=== PATIENT | female | born 1980 | race Caucasian/White ===

== ENCOUNTER → 2017-06-20 | Outpatient (CLI) | payer MEDICARE, SELFPAY | PROVIDERS: Family Provider Family Medicine; PCP Family Medicine; Visit Provider Family Medicine | DX: E66.01 Morbid (severe) obesity due to excess calories (principal) | CPT/HCPCS: 36415; 80053; 80061; 84443; 85025 ==

== ENCOUNTER → 2018-03-28 09:23 | Outpatient (CLI) | payer MEDICARE, MEDICAID, SELFPAY ==
[2018-03-28 10:53] LABS: Add Manual Diff / Slide Review NO; Basophils Percent Auto 0.3 % (0-2); Eosinophils Percent Auto 1.7 % (2-4); Hematocrit 39.4 % (36-46); Lymphocytes Percent Auto 22.6 % (25-40); Mean Corpuscular Hemoglobin 29.2 PG (26-34); Mean Corpuscular Volume 88.4 fL (80-100); Monocytes Percent Auto 4.2 % (3-14); Neutrophils Absolute Auto 8600 /uL (3000-5900); Neutrophils Percent Auto 71.2 % (50-75); Platelet Count 364 X10^3/uL (150-400); Red Blood Cell Count 4.45 X10^6/uL (4.0-5.2); White Blood Cell Count 12.1 X10^3/uL (4.5-11.0)
[2018-03-28 12:07] LABS: Erythrocyte Sedimentation Rate 43 MM/HR (0-20)
[2018-03-31 06:47] LABS: Immunoglobulin E 78 kU/L (< 115)
== END ==
PROVIDERS: Family Provider Family Medicine; PCP Family Medicine; Visit Provider Physician Assistant Medical
DX: J45.998 Other asthma (principal)
CPT/HCPCS: 36415; 82785; 85025; 85651

== ENCOUNTER 2018-04-06 15:47 | Emergency (ER) | payer MEDICARE, MEDICAID, SELFPAY ==
[2018-04-06 15:54] VITALS: BP 171/112; PULSE 112; RESP 20; TEMP 36.7; O2SAT 98; BMI 50.4
--- NOTE | 2018-04-06 15:58 | DI.RAD.S_ITS ---
PROCEDURE: XR CHEST 2V INDICATIONS: shortness of breath. TECHNIQUE: 2 views of the chest were acquired. COMPARISON: [facility], , CHEST 2 VIEW, 04/14/2016, 17:24. FINDINGS: Surgical changes and devices: None. Lungs and pleura: No pleural effusions or pneumothorax. Left base is obscured by overlying soft tissues. Mild appearance of increased pulmonary vascularity. Mediastinum: Mediastinal contours are normal. Heart size is markedly enlarged. Bones and chest wall: No suspicious bony abnormalities. Soft tissues appear unremarkable. IMPRESSION: Enlarged cardiac silhouette as above, increased compared to prior exam. Mild appearance of increased pulmonary vascularity suggestive of edema. Heart shadow and overlying soft tissues obscures left base. Area of effusion or consolidation cannot be excluded. Dictated by: Marjan Santamaria M.D. on 04/06/2018 at 17:42 Approved by: Marjan Santamaria M.D. on 04/06/2018 at 17:43
--- NOTE | 2018-04-06 16:01 | ED.SOB ---
HPI - SOB/Dyspnea <Wendi Olea PA-C - Last Filed: 04/06/18 22:18> General Chief Complaint: Shortness of Breath/Dyspnea Stated Complaint: CHEST PAIN SOB Time Seen by Provider: 04/06/18 16:00 Source: patient Mode of arrival: ambulatory Limitations: no limitations History of Present Illness This 38-year-old female comes in today due to ongoing asthma exacerbation. She states that she has been struggling with her asthma and allergies for the last couple of years and currently is being cared for by an pediatric sports medicine specialist for this. She states that this has been even worse for the last months despite her being on steroid inhaler, ProAir, Spiriva, and her allergy medications. She states that she has chronic left earache and sinus pain along with sensation of phlegm and throat tightness and chronic cough. She states that her chest is sore from coughing so much. She feels like symptoms have been gradually worsening for the last week, not acutely worse today she says but nurse from ceramics technician office advised her to come in. She states that they were waiting for a lab test to come back and apparently there was some concern about being able to get a medication for her though unknown what that is. She has not had new pain in her swelling in her legs (has some chronic pain which is unchanged). She denies abdominal pain or other new complaints today. She was seen at the walk-in clinic last week, does not think steroids that she was prescribed helped her. She states that she has chronic sinus tachycardia, and she really does not feel like any of her chronic problems are acutely changed today Related Data Home Medications Medication Instructions Recorded Confirmed albuterol sulfate HFA 90 2 puff INHALATION Q4-6H PRN 03/31/18 04/06/18 mcg/actuation aerosol inhaler baclofen 20 mg tablet 40 mg PO BEDTIME tab 03/31/18 04/06/18 fluticasone 200 mcg-vilanterol 25 1 inhalation INHALATION BEDTIME 03/31/18 04/06/18 mcg/dose powder for inhalation levomefolate 15 mg-algal oil 1 cap PO DAILY 03/31/18 04/06/18 90.314 mg capsule prazosin 1 mg capsule 3 mg PO BEDTIME cap 03/31/18 04/06/18 verapamil ER 120 mg 24 hr 120 mg PO TID 03/31/18 04/06/18 capsule,extended release amitriptyline 100 mg PO BEDTIME 04/06/18 04/06/18 gabapentin 300 mg PO DAILY 04/06/18 04/06/18 gabapentin [Neurontin] 600 mg PO BID 04/06/18 04/06/18 hydroxyzine pamoate [Vistaril] 50 mg PO BID 04/06/18 04/06/18 ibuprofen 800 mg PO BID 04/06/18 04/06/18 magnesium oxide 2 tab PO BEDTIME 04/06/18 04/06/18 montelukast [Singulair] 10 mg PO BEDTIME 04/06/18 04/06/18 triamcinolone acetonide [Nasacort] 2 spray INTRANASAL BEDTIME 04/06/18 04/06/18 Previous Rx's Medication Instructions Recorded omeprazole 40 mg PO BID #60 ecc 07/29/17 milnacipran [Savella] 100 mg PO BID #180 tab 11/19/17 tiotropium bromide [Spiriva with 1 puff INH BID #180 cap 12/29/17 HandiHaler] diazepam 5 mg tablet 5 mg PO TID #90 tab 02/06/18 cholecalciferol (vitamin D3) 4,000 2,000 unit PO BID #180 cap 03/03/18 unit capsule dihydroergotamine 1 mg/mL 1 mg SUBCUT Q8H PRN #10 amp 03/31/18 injection solution erenumab-aooe 70 mg/mL 140 mg SUBCUT QMONTH #2 ml 03/31/18 subcutaneous auto-injector Allergies Allergy/AdvReac Type Severity Reaction Status Date / Time bupropion [BUPROPION] Allergy Mild facial rash Verified 04/06/18 15:57 hydrocodone [HYDROCODONE] Allergy Mild rash Verified 04/06/18 15:57 iodine [IODINE] Allergy Mild edema Verified 04/06/18 15:57 Review of Systems <Wendi Olea PA-C - Last Filed: 04/06/18 22:18> Review of Systems All systems reviewed & are unremarkable except as noted in HPI and below Exam <Wendi Olea PA-C - Last Filed: 04/06/18 22:18> Narrative Exam Narrative: GENERAL APPEARANCE: Patient sitting comfortably, in no distress. HEAD: Mild generalized sinus tenderness EYES: PERRL, EOMI. EARS: Normal auditory canals, TMS intact with dull ORAL CAVITY: Normal oropharynx, PND noted THROAT: Clear. NECK/THYROID: Neck supple, full range of motion, no cervical lymphadenopathy. LUNGS: Clear to auscultation bilaterally, no cough on exam. CHEST: Generalized TTP HEART: RRR without murmur, nl S1, S2, no S3 or S4. EXTREMITIES: No cyanosis, no edema, no calf tenderness Initial Vital Signs Initial Vital Signs: Vital Signs Temperature 98.1 F 04/06/18 15:54 Pulse Rate 112 H 04/06/18 15:54 Respiratory Rate 20 04/06/18 15:54 Blood Pressure 171/112 H 04/06/18 15:54 Pulse Oximetry 98 04/06/18 15:54 <Wiley Perry DO - Last Filed: 04/07/18 07:06> Initial Vital Signs Initial Vital Signs: Vital Signs Temperature 98.1 F 04/06/18 15:54 Pulse Rate 112 H 04/06/18 15:54 Respiratory Rate 20 04/06/18 15:54 Blood Pressure 171/112 H 04/06/18 15:54 Pulse Oximetry 98 04/06/18 15:54 Course <Wendi Olea PA-C - Last Filed: 04/06/18 22:18> Additional Information: Reviewed findings and exam with Dr. Perry. D-dimer is normal and patient is not having acute symptoms however she has had ongoing unexplained dyspnea and chest discomfort without response to steroids. We did proceed with chest CT. No evidence of acute embolus in the central veins. Unable to evaluate peripheral vasculature fully due to body habitus. Dr. Powell agrees reasonable to have patient return home and follow up with her ceramics technician and PCP as planned. She has appeared comfortable and in no distress during her stay talking with her daughter and watching videos Orders Ordered: Discontinued Medications Albuterol (Ventolin) 2.5 mg INH NOW ONE Stop: 04/06/18 16:13 Last Admin: 04/06/18 17:15 Dose: 2.5 mg Albuterol/Ipratropium (Duoneb) 3 ml INH NOW ONE Stop: 04/06/18 16:01 Last Admin: 04/06/18 16:04 Dose: 3 ml Sodium Chloride (Normal Saline 0.9%) 1,000 mls @ 1,000 mls/hr IV BOLUS ONE Stop: 04/06/18 19:02 Last Infusion: 04/06/18 21:39 Dose: 0 mls/hr Admin: 04/06/18 20:03 Dose: 1,000 mls/hr Vital Signs - 8 hr 04/06/18 15:54 04/06/18 16:05 04/06/18 17:42 Temperature 98.1 F 99.0 F Pulse Rate 112 H 111 H 110 H Respiratory Rate 20 17 20 Blood Pressure 171/112 H Blood Pressure [Right Wrist] 141/99 H Pulse Oximetry 98 96 96 04/06/18 19:50 04/06/18 21:23 04/06/18 21:42 Temperature 98.0 F 97.6 F Pulse Rate 111 H 113 H 77 Respiratory Rate 20 16 16 Blood Pressure 118/72 Blood Pressure [Right Wrist] 128/77 H 117/96 H Pulse Oximetry 96 99 99 <Wiley Perry DO - Last Filed: 04/07/18 07:06> Orders Ordered: Discontinued Medications Albuterol (Ventolin) 2.5 mg INH NOW ONE Stop: 04/06/18 16:13 Last Admin: 04/06/18 17:15 Dose: 2.5 mg Albuterol/Ipratropium (Duoneb) 3 ml INH NOW ONE Stop: 04/06/18 16:01 Last Admin: 04/06/18 16:04 Dose: 3 ml Sodium Chloride (Normal Saline 0.9%) 1,000 mls @ 1,000 mls/hr IV BOLUS ONE Stop: 04/06/18 19:02 Last Infusion: 04/06/18 21:39 Dose: 0 mls/hr Admin: 04/06/18 20:03 Dose: 1,000 mls/hr Vital Signs - 8 hr 04/06/18 15:54 04/06/18 16:05 04/06/18 17:42 Temperature 98.1 F 99.0 F Pulse Rate 112 H 111 H 110 H Respiratory Rate 20 17 20 Blood Pressure 171/112 H Blood Pressure [Right Wrist] 141/99 H Pulse Oximetry 98 96 96 04/06/18 19:50 04/06/18 21:23 04/06/18 21:42 Temperature 98.0 F 97.6 F Pulse Rate 111 H 113 H 77 Respiratory Rate 20 16 16 Blood Pressure 118/72 Blood Pressure [Right Wrist] 128/77 H 117/96 H Pulse Oximetry 96 99 99 MDM - SOB/Dyspnea <Wendi Olea PA-C - Last Filed: 04/06/18 22:18> Lab Data Attestation: I reviewed the patient's lab results. Result diagrams: 04/06/18 17:29 04/06/18 17:29 Lab Results 04/06/18 04/06/18 04/06/18 Range/Units 17:29 17:29 17:29 WBC 14.0 H (4.5-11.0) X10^3/uL RBC 4.70 (4.0-5.2) X10^6/uL Hgb 13.6 (12.0-16.0) g/dL Hct 41.4 (36-46) % MCV 88.1 (80-100) fL MCH 28.9 (26-34) PG MCHC 32.8 (30-36) % RDW 14.2 (11.6-14.8) % Plt Count 387 (150-400) X10^3/uL Neut % (Auto) 77.6 H (50-75) % Lymph % (Auto) 14.7 L (25-40) % [place] % (Auto) 6.7 (3-14) % Eos % (Auto) 0.6 L (2-4) % Baso % (Auto) 0.4 (0-2) % Neut # (Auto) 94398 H (0641-8457) /uL D-Dimer < 200 (<230) ng/mL Sodium 140 (137-145) mmol/L Potassium 4.5 (3.4-5.1) mmol/L Chloride 95 L (98-107) mmol/L Carbon Dioxide 37 H (22-32) mmol/L BUN 16 (7-17) mg/dL Creatinine 0.60 (0.52-1.04) mg/dL Estimated GFR > 60.0 (>60) mL/min BUN/Creatinine Ratio 26.7 H (6-22) Glucose 99 (70-100) mg/dL Calcium 9.7 (8.4-10.2) mg/dL B-Natriuretic Peptide < 100.0 (<100) Imaging Data Chest x-ray: Radiologist's impression: View Report History [address] [place] [address] XRay Report Signed Patient: Dorinda Harper MR#: [id number] : 1980 Acct:[id number] Age/Sex: 38 / F Date of Service: 04/06/18 Loc: ED Accession Number: [id number] Procedure: XR chest 2V Ordering Provider: Wendi Olea P.A-C PROCEDURE: XR CHEST 2V INDICATIONS: shortness of breath. TECHNIQUE: 2 views of the chest were acquired. COMPARISON: [facility], , CHEST 2 VIEW, 04/14/2016, 17:24. FINDINGS: Surgical changes and devices: None. Lungs and pleura: No pleural effusions or pneumothorax. Left base is obscured by overlying soft tissues. Mild appearance of increased pulmonary vascularity. Mediastinum: Mediastinal contours are normal. Heart size is markedly enlarged. Bones and chest wall: No suspicious bony abnormalities. Soft tissues appear unremarkable. IMPRESSION: Enlarged cardiac silhouette as above, increased compared to prior exam. Mild appearance of increased pulmonary vascularity suggestive of edema. Heart shadow and overlying soft tissues obscures left base. Area of effusion or consolidation cannot be excluded. Dictated by: Marjan Santamaria M.D. on 04/06/2018 at 17:42 Approved by: Marjan Santamaria M.D. on 04/06/2018 at 17:43 ECG Data Attestation: I personally reviewed and interpreted this ECG as follows: (Sinus tachycardia, rate 109, normal axis, no new ST/T changes) Prior ECG tracings: available for review <Wiley Perry DO - Last Filed: 04/07/18 07:06> Lab Data Lab Results 04/06/18 04/06/18 04/06/18 Range/Units 17:29 17:29 17:29 WBC 14.0 H (4.5-11.0) X10^3/uL RBC 4.70 (4.0-5.2) X10^6/uL Hgb 13.6 (12.0-16.0) g/dL Hct 41.4 (36-46) % MCV 88.1 (80-100) fL MCH 28.9 (26-34) PG MCHC 32.8 (30-36) % RDW 14.2 (11.6-14.8) % Plt Count 387 (150-400) X10^3/uL Neut % (Auto) 77.6 H (50-75) % Lymph % (Auto) 14.7 L (25-40) % [place] % (Auto) 6.7 (3-14) % Eos % (Auto) 0.6 L (2-4) % Baso % (Auto) 0.4 (0-2) % Neut # (Auto) 87259 H (7295-5347) /uL D-Dimer < 200 (<230) ng/mL Sodium 140 (137-145) mmol/L Potassium 4.5 (3.4-5.1) mmol/L Chloride 95 L (98-107) mmol/L Carbon Dioxide 37 H (22-32) mmol/L BUN 16 (7-17) mg/dL Creatinine 0.60 (0.52-1.04) mg/dL Estimated GFR > 60.0 (>60) mL/min BUN/Creatinine Ratio 26.7 H (6-22) Glucose 99 (70-100) mg/dL Calcium 9.7 (8.4-10.2) mg/dL B-Natriuretic Peptide < 100.0 (<100) Discharge Plan Departure Patient Disposition: Home, Self-Care Clinical Impression: Dyspnea and respiratory abnormalities Discharge Date/Time: 04/06/18 21:43 Interventions: ED Discharge Assessment Last Done: 04/06/18 21:42 Instructions: DI for Shortness of Breath Activity Restrictions/Additional Instructions: You should return to the closest emergency department if you have any acutely worsening symptoms. Otherwise, please call your ceramics technician tomorrow and let them know you were seen in the ED. You should follow-up in the next couple of days. Since you have had this shortness of breath worsening gradually as well as chest discomfort and other ongoing symptoms, you do need further workup. There were no acute findings on your lab work or imaging studies today, and since your symptoms are not worse today, it appears safe for you to return home and follow up as an outpatient. Please continue your usual medications. Prescriptions: No Action omeprazole 40 MG capsule,delayed release(DR/EC) 40 mg PO BID Qty: 60 RF: 11 milnacipran [Savella] 100 MG tablet 100 mg PO BID Qty: 180 RF: 2 tiotropium bromide [Spiriva with HandiHaler] 18 MCG capsule, w/inhalation device 1 puff INH BID Qty: 180 RF: 3 diazepam 5 mg tablet 5 mg PO TID Qty: 90 RF: 3 cholecalciferol (vitamin D3) [Vitamin D3] 4,000 unit capsule 2,000 unit PO BID Qty: 180 RF: 1 ibuprofen 800 mg tablet 800 mg PO BID RF: 0 montelukast [Singulair] 10 MG tablet 10 mg PO BEDTIME RF: 0 gabapentin 600 mg tablet 300 mg PO DAILY RF: 0 gabapentin [Neurontin] 600 mg tablet 600 mg PO BID RF: 0 hydroxyzine pamoate [Vistaril] 50 MG capsule 50 mg PO BID RF: 0 triamcinolone acetonide [Nasacort] 55 MCG/PUFF aerosol,spray 2 spray Intranasal BEDTIME RF: 0 magnesium oxide 500 MG tablet 2 tab PO BEDTIME RF: 0 amitriptyline 100 MG tablet 100 mg PO BEDTIME RF: 0 baclofen 20 mg tablet 40 mg PO BEDTIME RF: 0 fluticasone-vilanterol [Breo Ellipta] 200-25 mcg/dose blister with device 1 inhalation INHALATION BEDTIME RF: 0 levomefolate-algal oil [Deplin (algal oil)] 15-90.314 mg capsule 1 cap PO DAILY RF: 0 prazosin 1 mg capsule 3 mg PO BEDTIME RF: 0 albuterol sulfate [ProAir HFA] 90 mcg/actuation HFA aerosol inhaler 2 puff INHALATION Q4-6H PRN (Reason: Shortness Of Breath) RF: 0 verapamil 120 mg capsule,ext rel. pellets 24 hr 120 mg PO TID RF: 0 dihydroergotamine 1 mg/mL solution 1 mg SUBCUT Q8H PRN (Reason: migraine headache) Qty: 10 RF: 11 erenumab-aooe [Aimovig Autoinjector (2 Pack)] 70 mg/mL auto-injector 140 mg SUBCUT QMONTH Qty: 2 RF: 11 Referrals: Ivonne Buenrostro MD [Primary Care Provider] - Pinky Sanchez PA-C [Non-Staff] - <Wiley Perry DO - Last Filed: 04/07/18 07:06> Cosign ED Attending Jessicaature Attestation: I was available for consultation during this patient's emergency department encounter
[2018-04-06] MEDS: ALBUTEROL/IPRATROPIUM 3 ML AMPUL INH (16:04)
[2018-04-06 16:05] VITALS: PULSE 111; RESP 17; O2SAT 96
--- NOTE | 2018-04-06 16:17 | ED_ITS ---
HPI - SOB/Dyspnea <Wendi Olea PA-C - Last Filed: 04/06/18 22:18> General Chief Complaint: Shortness of Breath/Dyspnea Stated Complaint: CHEST PAIN SOB Time Seen by Provider: 04/06/18 16:00 Source: patient Mode of arrival: ambulatory Limitations: no limitations History of Present Illness This 38-year-old female comes in today due to ongoing asthma exacerbation. She states that she has been struggling with her asthma and allergies for the last couple of years and currently is being cared for by an laboratory technical specialist for this. She states that this has been even worse for the last months despite her being on steroid inhaler, ProAir, Spiriva, and her allergy medications. She states that she has chronic left earache and sinus pain along with sensation of phlegm and throat tightness and chronic cough. She states that her chest is sore from coughing so much. She feels like symptoms have been gradually worsening for the last week, not acutely worse today she says but nurse from rubber production machine operator office advised her to come in. She states that they were waiting for a lab test to come back and apparently there was some concern about being able to get a medication for her though unknown what that is. She has not had new pain in her swelling in her legs (has some chronic pain which is unchanged). She denies abdominal pain or other new complaints today. She was seen at the walk-in clinic last week, does not think steroids that she was prescribed helped her. She states that she has chronic sinus tachycardia, and she really does not feel like any of her chronic problems are acutely changed today Related Data Home Medications Medication Instructions Recorded Confirmed albuterol sulfate HFA 90 2 puff INHALATION Q4-6H PRN 03/31/18 04/06/18 mcg/actuation aerosol inhaler baclofen 20 mg tablet 40 mg PO BEDTIME tab 03/31/18 04/06/18 fluticasone 200 mcg-vilanterol 25 1 inhalation INHALATION BEDTIME 03/31/1804/06 mcg/dose powder for inhalation levomefolate 15 mg-algal oil 1 cap PO DAILY 03/31/18 04/06/18 90.314 mg capsule prazosin 1 mg capsule 3 mg PO BEDTIME cap 03/31/18 04/06/18 verapamil ER 120 mg 24 hr 120 mg PO TID 03/31/18 04/06/18 capsule,extended release amitriptyline 100 mg PO BEDTIME 04/06/18 04/06/18 gabapentin 300 mg PO DAILY 04/06/18 04/06/18 gabapentin [Neurontin] 600 mg PO BID 04/06/18 04/06/18 hydroxyzine pamoate [Vistaril] 50 mg PO BID 04/06/18 04/06/18 ibuprofen 800 mg PO BID 04/06/18 04/06/18 magnesium oxide 2 tab PO BEDTIME 04/06/18 04/06/18 montelukast [Singulair] 10 mg PO BEDTIME 04/06/18 04/06/18 triamcinolone acetonide [Nasacort] 2 spray INTRANASAL BEDTIME 04/06/18 04/06/18 Previous Rx's Medication Instructions Recorded omeprazole 40 mg PO BID #60 ecc 07/29/17 milnacipran [Savella] 100 mg PO BID #180 tab 11/19/17 tiotropium bromide [Spiriva with 1 puff INH BID #180 cap 12/29/17 HandiHaler] diazepam 5 mg tablet 5 mg PO TID #90 tab 02/06/18 cholecalciferol (vitamin D3) 4,000 2,000 unit PO BID #180 cap 03/03/18 unit capsule dihydroergotamine 1 mg/mL 1 mg SUBCUT Q8H PRN #10 amp 03/31/18 injection solution erenumab-aooe 70 mg/mL 140 mg SUBCUT QMONTH #2 ml 03/31/18 subcutaneous auto-injector Allergies Allergy/AdvReac Type Severity Reaction Status Date / Time bupropion [BUPROPION] Allergy Mild facial rash Verified 04/06/18 15:57 hydrocodone [HYDROCODONE] Allergy Mild rash Verified 04/06/18 15:57 iodine [IODINE] Allergy Mild edema Verified 04/06/18 15:57 Review of Systems <Wendi Olea PA-C - Last Filed: 04/06/18 22:18> Review of Systems All systems reviewed & are unremarkable except as noted in HPI and below Exam <Wendi Olea PA-C - Last Filed: 04/06/18 22:18> Narrative Exam Narrative: GENERAL APPEARANCE: Patient sitting comfortably, in no distress. HEAD: Mild generalized sinus tenderness EYES: PERRL, EOMI. EARS: Normal auditory canals, TMS intact with dull ORAL CAVITY: Normal oropharynx, PND noted THROAT: Clear. NECK/THYROID: Neck supple, full range of motion, no cervical lymphadenopathy. LUNGS: Clear to auscultation bilaterally, no cough on exam. CHEST: Generalized TTP HEART: RRR without murmur, nl S1, S2, no S3 or S4. EXTREMITIES: No cyanosis, no edema, no calf tenderness Initial Vital Signs Initial Vital Signs: Vital Signs Temperature 98.1 F 04/06/18 15:54 Pulse Rate 112 H 04/06/18 15:54 Respiratory Rate 20 04/06/18 15:54 Blood Pressure 171/112 H 04/06/18 15:54 Pulse Oximetry 98 04/06/18 15:54 <Wiley Perry DO - Last Filed: 04/07/18 07:06> Initial Vital Signs Initial Vital Signs: Vital Signs Temperature 98.1 F 04/06/18 15:54 Pulse Rate 112 H 04/06/18 15:54 Respiratory Rate 20 04/06/18 15:54 Blood Pressure 171/112 H 04/06/18 15:54 Pulse Oximetry 98 04/06/18 15:54 Course <Wendi Olea PA-C - Last Filed: 04/06/18 22:18> Additional Information: Reviewed findings and exam with Dr. Perry. D-dimer is normal and patient is not having acute symptoms however she has had ongoing unexplained dyspnea and chest discomfort without response to steroids. We did proceed with chest CT. No evidence of acute embolus in the central veins. Unable to evaluate peripheral vasculature fully due to body habitus. Dr. Powell agrees reasonable to have patient return home and follow up with her rubber production machine operator and PCP as planned. She has appeared comfortable and in no distress during her stay talking with her daughter and watching videos Orders Ordered: Discontinued Medications Albuterol (Ventolin) 2.5 mg INH NOW ONE Stop: 04/06/18 16:13 Last Admin: 04/06/18 17:15 Dose: 2.5 mg Albuterol/Ipratropium (Duoneb) 3 ml INH NOW ONE Stop: 04/06/18 16:01 Last Admin: 04/06/18 16:04 Dose: 3 ml Sodium Chloride (Normal Saline 0.9%) 1,000 mls @ 1,000 mls/hr IV BOLUS ONE Stop: 04/06/18 19:02 Last Infusion: 04/06/18 21:39 Dose: 0 mls/hr Admin: 04/06/18 20:03 Dose: 1,000 mls/hr Vital Signs - 8 hr 04/06/18 15:54 04/06/18 16:05 04/06/18 17:42 Temperature 98.1 F 99.0 F Pulse Rate 112 H 111 H 110 H Respiratory Rate 20 17 20 Blood Pressure 171/112 H Blood Pressure [Right Wrist] 141/99 H Pulse Oximetry 98 96 96 04/06/18 19:50 04/06/18 21:23 04/06/18 21:42 Temperature 98.0 F 97.6 F Pulse Rate 111 H 113 H 77 Respiratory Rate 20 16 16 Blood Pressure 118/72 Blood Pressure [Right Wrist] 128/77 H 117/96 H Pulse Oximetry 96 99 99 <Wiley Perry DO - Last Filed: 04/07/18 07:06> Orders Ordered: Discontinued Medications Albuterol (Ventolin) 2.5 mg INH NOW ONE Stop: 04/06/18 16:13 Last Admin: 04/06/18 17:15 Dose: 2.5 mg Albuterol/Ipratropium (Duoneb) 3 ml INH NOW ONE Stop: 04/06/18 16:01 Last Admin: 04/06/18 16:04 Dose: 3 ml Sodium Chloride (Normal Saline 0.9%) 1,000 mls @ 1,000 mls/hr IV BOLUS ONE Stop: 04/06/18 19:02 Last Infusion: 04/06/18 21:39 Dose: 0 mls/hr Admin: 04/06/18 20:03 Dose: 1,000 mls/hr Vital Signs - 8 hr 04/06/18 15:54 04/06/18 16:05 04/06/18 17:42 Temperature 98.1 F 99.0 F Pulse Rate 112 H 111 H 110 H Respiratory Rate 20 17 20 Blood Pressure 171/112 H Blood Pressure [Right Wrist] 141/99 H Pulse Oximetry 98 96 96 04/06/18 19:50 04/06/18 21:23 04/06/18 21:42 Temperature 98.0 F 97.6 F Pulse Rate 111 H 113 H 77 Respiratory Rate 20 16 16 Blood Pressure 118/72 Blood Pressure [Right Wrist] 128/77 H 117/96 H Pulse Oximetry 96 99 99 MDM - SOB/Dyspnea <Wendi Olea PA-C - Last Filed: 04/06/18 22:18> Lab Data Attestation: I reviewed the patient's lab results. Result diagrams: 04/06/18 17:29 04/06/18 17:29 Lab Results 04/06/18 04/06/18 04/06/18 Range/Units 17:29 17:29 17:29 WBC 14.0 H (4.5-11.0) X10^3/uL RBC 4.70 (4.0-5.2) X10^6/uL Hgb 13.6 (12.0-16.0) g/dL Hct 41.4 (36-46) % MCV 88.1 (80-100) fL MCH 28.9 (26-34) PG MCHC 32.8 (30-36) % RDW 14.2 (11.6-14.8) % Plt Count 387 (150-400) X10^3/uL Neut % (Auto) 77.6 H (50-75) % Lymph % (Auto) 14.7 L (25-40) % Union % (Auto) 6.7 (3-14) % Eos % (Auto) 0.6 L (2-4) % Baso % (Auto) 0.4 (0-2) % Neut # (Auto) 21954 H (8582-7024) /uL D-Dimer < 200 (<230) ng/mL Sodium 140 (137-145) mmol/L Potassium 4.5 (3.4-5.1) mmol/L Chloride 95 L (98-107) mmol/L Carbon Dioxide 37 H (22-32) mmol/L BUN 16 (7-17) mg/dL Creatinine 0.60 (0.52-1.04) mg/dL Estimated GFR > 60.0 (>60) mL/min BUN/Creatinine Ratio 26.7 H (6-22) Glucose 99 (70-100) mg/dL Calcium 9.7 (8.4-10.2) mg/dL B-Natriuretic Peptide < 100.0 (<100) Imaging Data Chest x-ray: Radiologist's impression: View Report History [address] [place] [address] XRay Report Signed Patient: Dorinda Harper MR#: [id number] : 1980 Acct:[id number] Age/Sex: 38 / F Date of Service: 04/06/18 Loc: ED Accession Number: [id number] Procedure: XR chest 2V Ordering Provider: Wendi Olea P.A-C PROCEDURE: XR CHEST 2V INDICATIONS: shortness of breath. TECHNIQUE: 2 views of the chest were acquired. COMPARISON: [facility], , CHEST 2 VIEW, 04/14/2016, 17:24. FINDINGS: Surgical changes and devices: None. Lungs and pleura: No pleural effusions or pneumothorax. Left base is obscured by overlying soft tissues. Mild appearance of increased pulmonary vascularity. Mediastinum: Mediastinal contours are normal. Heart size is markedly enlarged. Bones and chest wall: No suspicious bony abnormalities. Soft tissues appear unremarkable. IMPRESSION: Enlarged cardiac silhouette as above, increased compared to prior exam. Mild appearance of increased pulmonary vascularity suggestive of edema. Heart shadow and overlying soft tissues obscures left base. Area of effusion or consolidation cannot be excluded. Dictated by: Marjan Santamaria M.D. on 04/06/2018 at 17:42 Approved by: Marjan Santamaria M.D. on 04/06/2018 at 17:43 ECG Data Attestation: I personally reviewed and interpreted this ECG as follows: (Sinus tachycardia, rate 109, normal axis, no new ST/T changes) Prior ECG tracings: available for review <Wiley Perry DO - Last Filed: 04/07/18 07:06> Lab Data Lab Results 04/06/18 04/06/18 04/06/18 Range/Units 17:29 17:29 17:29 WBC 14.0 H (4.5-11.0) X10^3/uL RBC 4.70 (4.0-5.2) X10^6/uL Hgb 13.6 (12.0-16.0) g/dL Hct 41.4 (36-46) % MCV 88.1 (80-100) fL MCH 28.9 (26-34) PG MCHC 32.8 (30-36) % RDW 14.2 (11.6-14.8) % Plt Count 387 (150-400) X10^3/uL Neut % (Auto) 77.6 H (50-75) % Lymph % (Auto) 14.7 L (25-40) % Union % (Auto) 6.7 (3-14) % Eos % (Auto) 0.6 L (2-4) % Baso % (Auto) 0.4 (0-2) % Neut # (Auto) 23581 H (7091-3525) /uL D-Dimer < 200 (<230) ng/mL Sodium 140 (137-145) mmol/L Potassium 4.5 (3.4-5.1) mmol/L Chloride 95 L (98-107) mmol/L Carbon Dioxide 37 H (22-32) mmol/L BUN 16 (7-17) mg/dL Creatinine 0.60 (0.52-1.04) mg/dL Estimated GFR > 60.0 (>60) mL/min BUN/Creatinine Ratio 26.7 H (6-22) Glucose 99 (70-100) mg/dL Calcium 9.7 (8.4-10.2) mg/dL B-Natriuretic Peptide < 100.0 (<100) Discharge Plan Departure Patient Disposition: Home, Self-Care Clinical Impression: Dyspnea and respiratory abnormalities Discharge Date/Time: 04/06/18 21:43 Interventions: ED Discharge Assessment Last Done: 04/06/18 21:42 Instructions: DI for Shortness of Breath Activity Restrictions/Additional Instructions: You should return to the closest emergency department if you have any acutely worsening symptoms. Otherwise, please call your rubber production machine operator tomorrow and let them know you were seen in the ED. You should follow-up in the next couple of days. Since you have had this shortness of breath worsening gradually as well as chest discomfort and other ongoing symptoms, you do need further workup. There were no acute findings on your lab work or imaging studies today, and since your symptoms are not worse today, it appears safe for you to return home and follow up as an outpatient. Please continue your usual medications. Prescriptions: No Action omeprazole 40 MG capsule,delayed release(DR/EC) 40 mg PO BID Qty: 60 RF: 11 milnacipran [Savella] 100 MG tablet 100 mg PO BID Qty: 180 RF: 2 tiotropium bromide [Spiriva with HandiHaler] 18 MCG capsule, w/inhalation device 1 puff INH BID Qty: 180 RF: 3 diazepam 5 mg tablet 5 mg PO TID Qty: 90 RF: 3 cholecalciferol (vitamin D3) [Vitamin D3] 4,000 unit capsule 2,000 unit PO BID Qty: 180 RF: 1 ibuprofen 800 mg tablet 800 mg PO BID RF: 0 montelukast [Singulair] 10 MG tablet 10 mg PO BEDTIME RF: 0 gabapentin 600 mg tablet 300 mg PO DAILY RF: 0 gabapentin [Neurontin] 600 mg tablet 600 mg PO BID RF: 0 hydroxyzine pamoate [Vistaril] 50 MG capsule 50 mg PO BID RF: 0 triamcinolone acetonide [Nasacort] 55 MCG/PUFF aerosol,spray 2 spray Intranasal BEDTIME RF: 0 magnesium oxide 500 MG tablet 2 tab PO BEDTIME RF: 0 amitriptyline 100 MG tablet 100 mg PO BEDTIME RF: 0 baclofen 20 mg tablet 40 mg PO BEDTIME RF: 0 fluticasone-vilanterol [Breo Ellipta] 200-25 mcg/dose blister with device 1 inhalation INHALATION BEDTIME RF: 0 levomefolate-algal oil [Deplin (algal oil)] 15-90.314 mg capsule 1 cap PO DAILY RF: 0 prazosin 1 mg capsule 3 mg PO BEDTIME RF: 0 albuterol sulfate [ProAir HFA] 90 mcg/actuation HFA aerosol inhaler 2 puff INHALATION Q4-6H PRN (Reason: Shortness Of Breath) RF: 0 verapamil 120 mg capsule,ext rel. pellets 24 hr 120 mg PO TID RF: 0 dihydroergotamine 1 mg/mL solution 1 mg SUBCUT Q8H PRN (Reason: migraine headache) Qty: 10 RF: 11 erenumab-aooe [Aimovig Autoinjector (2 Pack)] 70 mg/mL auto-injector 140 mg SUBCUT QMONTH Qty: 2 RF: 11 Referrals: Ivonne Buenrostro MD [Primary Care Provider] - Pinky Sanchez PA-C [Non-Staff] - <Wiley Perry DO - Last Filed: 04/07/18 07:06> Cosign ED Attending Jessicaature Attestation: I was available for consultation during this patient's emergency department encounter
[2018-04-06] MEDS: ALBUTEROL 2.5 MG/3 ML NEB (ADULT) INH (17:15)
[2018-04-06 17:42] VITALS: BP 141/99; PULSE 110; RESP 20; TEMP 37.2; O2SAT 96
[2018-04-06 17:48] LABS: D Dimer < 200 ng/mL (<230)
--- NOTE | 2018-04-06 18:03 | DI.CT.S_ITS ---
PROCEDURE: CT ANGIO CHEST PE PROTOCOL INDICATIONS: chronic dyspnea, chest pain, tachy TECHNIQUE: After the administration of intravenous contrast, 2 mm thick sections acquired from the pulmonary apices to the posterior costophrenic angles. 3-dimensional maximum intensity projection (MIP) coronal and sagittal reformats were then acquired through the thorax. For radiation dose reduction, the following was used: automated exposure control, adjustment of mA and/or kV according to patient size. COMPARISON: [facility], CT, PE STUDY (CTA CHEST), 05/13/2010, 20:56. [facility], CT, PE STUDY (CTA CHEST), 07/22/2011, 10:00. FINDINGS: Image quality: Secondary to patient body habitus, there is prominent artifact present obscuring detail of distal segmental branches. Pulmonary arteries: Pulmonary arteries are normal in size, and demonstrate no intraluminal filling defects to suggest central pulmonary embolism. However, secondary to artifact, all segmental branches have a heterogeneous appearance. Lungs and pleura: Lungs are clear. No pleural effusions or pneumothorax. Central and peripheral airways are patent. Mediastinum: Heart size is normal, without pericardial effusion. No mediastinal or hilar adenopathy. Thoracic aorta is normal in caliber and enhancement. Esophagus is normal in caliber, without hiatal hernia. Bones and chest wall: No suspicious bony lesions. Ribs and thoracic spine appear intact throughout. Thyroid gland is unremarkable. No axillary or supraclavicular adenopathy. Abdomen: Visualized upper abdominal solid organs appear normal in the early arterial phase of enhancement. IMPRESSION: 1. No central pulmonary embolism. Secondary to patient body habitus, there is heterogeneous opacification of all segmental branches of the pulmonary arteries as above. Evaluation of these branches is considered nondiagnostic for pulmonary embolism. Dictated by: Marjan Santamaria M.D. on 04/06/2018 at 19:21 Approved by: Marjan Santamaria M.D. on 04/06/2018 at 19:24
[2018-04-06 18:42] LABS: Add Manual Diff / Slide Review NO; Basophils Percent Auto 0.4 % (0-2); Eosinophils Percent Auto 0.6 % (2-4); Hematocrit 41.4 % (36-46); Hemoglobin 13.6 g/dL (12.0-16.0); Lymphocytes Percent Auto 14.7 % (25-40); Mean Corpuscular HGB Conc 32.8 % (30-36); Mean Corpuscular Hemoglobin 28.9 PG (26-34); Mean Corpuscular Volume 88.1 fL (80-100); Monocytes Percent Auto 6.7 % (3-14); Neutrophils Absolute Auto 10900 /uL (3000-5900); Neutrophils Percent Auto 77.6 % (50-75); Platelet Count 387 X10^3/uL (150-400); Red Cell Distribution Width 14.2 % (11.6-14.8)
[2018-04-06 18:48] LABS: BUN Creatinine Ratio 26.7 (6-22); Blood Urea Nitrogen 16 mg/dL (7-17); Calcium 9.7 mg/dL (8.4-10.2); Carbon Dioxide 37 mmol/L (22-32); Chloride 95 mmol/L (98-107); Estimated Glomerular Filt Rate > 60.0 mL/min (>60); Glucose 99 mg/dL (70-100); HEMOLYSIS < 15 (0-50); Potassium 4.5 mmol/L (3.4-5.1); Sodium 140 mmol/L (137-145)
[2018-04-06 19:13] LABS: B Type Natriuretic Peptide < 100.0 (<100)
[2018-04-06 19:50] VITALS: BP 128/77; PULSE 111; RESP 20; TEMP 36.7; O2SAT 96
[2018-04-06] MEDS: SODIUM CHLORIDE 0.9% 1,000 ML 1000 ML IV (20:03)
[2018-04-06 21:23] VITALS: BP 117/96; PULSE 113; RESP 16; TEMP 36.4; O2SAT 99
--- NOTE | 2018-04-06 21:27 | PC.NURSE ---
pt reports i can breath better. Reports the breathing treatment help I have a follow up with the asthma center.
[2018-04-06 21:42] VITALS: BP 118/72; PULSE 77; RESP 16; O2SAT 99
== END 2018-04-06 21:43 | disposition home or self-care (01) ==
PROVIDERS: Emergency Provider Internal Medicine; Family Provider Family Medicine; PCP Family Medicine
DX: R06.09 Other forms of dyspnea (principal); J98.9 Respiratory disorder, unspecified
CPT/HCPCS: 36415; 36591; 71046; 71275; 80048; 83880; 85025; 85379; 90837; 93005; 93010; 94640; 96360; 96361; 99284; 99285; J7613; Q9967

== ENCOUNTER → 2018-06-13 09:59 | Outpatient (CLI) | payer MEDICARE, MEDICAID, SELFPAY ==
--- NOTE | 2018-06-13 10:09 | DI.RAD.S_ITS ---
PROCEDURE: XR FOOT LT MIN 3V INDICATIONS: PAIN ACROSS MTP JOINTS TECHNIQUE: 3 views of the foot were acquired. COMPARISON: [facility], , FOOT 3V LEFT, 07/10/2009, 9:52. FINDINGS: Bones: No fractures or dislocations. There is mild degeneration of the 1st metatarsophalangeal joint with mild joint space narrowing and minimal subchondral sclerosis. No bony erosions. There is a bipartite medial sesamoid again noted. No suspicious bony lesions. Soft tissues: No tibiotalar joint effusion. Achilles tendon appears normal. IMPRESSION: 1. Mild degeneration of the 1st metatarsophalangeal joint minimally increased from the prior study. Dictated by: Jose Luis Pride M.D. on 06/13/2018 at 11:05 Approved by: Jose Luis Pride M.D. on 06/13/2018 at 11:07
--- NOTE | 2018-06-13 10:09 | DI.RAD.S_ITS ---
PROCEDURE: XR FOOT RT MIN 3V INDICATIONS: PAIN ACROSS MTP JOINTS TECHNIQUE: 3 views of the foot were acquired. COMPARISON: [facility], CR, XR FOOT LT MIN 3V, 06/13/2018, 10:07. FINDINGS: Bones: No fractures or dislocations. There is mild degeneration of the 1st metatarsophalangeal joint with mild joint space narrowing, minimal subchondral sclerosis, and middle subchondral cystic changes. No suspicious bony lesions. Soft tissues: No tibiotalar joint effusion. Achilles tendon appears normal. IMPRESSION: 1. Mild degeneration at the 1st metatarsophalangeal joint. Dictated by: Jose Luis Pride M.D. on 06/13/2018 at 11:07 Approved by: Jose Luis Pride M.D. on 06/13/2018 at 11:08
[2018-06-13 10:58] LABS: Add Manual Diff / Slide Review NO; Basophils Percent Auto 0.4 % (0-2); Eosinophils Percent Auto 2.3 % (2-4); Hematocrit 35.1 % (36-46); Hemoglobin 11.5 g/dL (12.0-16.0); Lymphocytes Percent Auto 19.4 % (25-40); Mean Corpuscular HGB Conc 32.9 % (30-36); Mean Corpuscular Hemoglobin 28.9 PG (26-34); Mean Corpuscular Volume 87.8 fL (80-100); Monocytes Percent Auto 5.1 % (3-14); Neutrophils Absolute Auto 8400 /uL (3000-5900); Neutrophils Percent Auto 72.8 % (50-75); Platelet Count 348 X10^3/uL (150-400); Red Cell Distribution Width 14.9 % (11.6-14.8); White Blood Cell Count 11.5 X10^3/uL (4.5-11.0)
[2018-06-13 11:08] LABS: Alanine Aminotransferase 28 IU/L (9-52); Albumin 4.1 g/dL (3.5-5.0); Albumin Globulin Ratio 1.3 (1.0-2.8); Alkaline Phosphatase 69 U/L (38-126); Aspartate Aminotransferase 13 IU/L (14-36); BUN Creatinine Ratio 31.7 (6-22); Bilirubin Total 0.2 mg/dL (0.2-1.3); Blood Urea Nitrogen 19 mg/dL (7-17); C-Reactive Protein Quant 2.6 mg/dL (<1.0); Calcium 9.2 mg/dL (8.4-10.2); Carbon Dioxide 34 mmol/L (22-32); Chloride 100 mmol/L (98-107); Estimated Glomerular Filt Rate > 60.0 mL/min (>60); Globulin 3.1 g/dL (1.7-4.1); Glucose 93 mg/dL (70-100); HEMOLYSIS < 15 (0-50); Potassium 4.1 mmol/L (3.4-5.1); Sodium 144 mmol/L (137-145); Total Protein 7.2 g/dL (6.3-8.2)
[2018-06-13 11:22] LABS: Erythrocyte Sedimentation Rate 31 MM/HR (0-20)
== END ==
PROVIDERS: Family Provider Family Medicine; PCP Family Medicine; Visit Provider Physician Assistant Medical
DX: D72.829 Elevated white blood cell count, unspecified (principal)
CPT/HCPCS: 36415; 73630; 80053; 85025; 85651; 86140

== ENCOUNTER → 2018-09-22 11:00 | Outpatient (CLI) | payer MEDICARE, MEDICAID, SELFPAY ==
[2018-09-23 15:08] LABS: Immunoglobulin A 331 mg/dL (81-463); Immunoglobulin G, Quantitative 1024 mg/dL (694-1618); Immunoglobulin M, Quantitative 92 mg/dL (48-271)
== END ==
PROVIDERS: PCP Family Medicine; Visit Provider Physician Assistant Medical
DX: J45.50 Severe persistent asthma, uncomplicated (principal)
CPT/HCPCS: 36415; 82784; 86317

== ENCOUNTER → 2018-11-05 12:27 | Outpatient (CLI) | payer MEDICARE, MEDICAID, SELFPAY ==
--- NOTE | 2018-11-05 | DI.ECHO.S_ITS ---
[facility]---------+ [facility] +---------+ : : [address] : : : : [id number] : : : : Phone: [phone]---------+ Echocardiogram Report + + :Name: WILVER CALDERÓN Study Date: 11/05/2018 Height: 70 in : :[facility] Weight: 345 lb : : Gender: Female BSA: 2.6 m2 : :: 1980 Age: 38 yrs BP: 166/92 mmHg: :Reason For Study: Arrhythmia, SVT- Paroxsymal : :Ordering Physician: Lavell Krishnamurthy : :[place] Performed By: Christine Mayer : + + Interpretation Summary This is a technically difficult study which required Definity echocontrast to enhance endocardial visualization. Sinus tachycardia with HR of 97-104 bpm. Normal LV size and wall thickness. There is subtle distal septal and distal inferior hypokinesis which could be due to small area of ischemia or due to conduction system disease. Normal LV systolic function. EF is 60-65%. Normal chamber sizes. No significant valvular abnormalities. Compared to prior study 03/08/2014 focal wall motion abnormalities are new. Procedure: A two-dimensional transthoracic echocardiogram with color flow and Doppler was performed. The study quality was technically difficult. Comparison is made with the echocardiogram of 03-08-14. 1.5 ml of Definity contrast was used to improve images of LV function. The heart rate ranged between 97-104 bpm during the study. Left Ventricle: The left ventricle is normal in size. There is normal left ventricular wall thickness. The ejection fraction is estimated to be 60-65%. Diastolic function could not be accurately assessed due to tachycardia. Right Ventricle: The right ventricle grossly appears normal in size with probable normal systolic function. Atria: The left atrium grossly appears normal in size. Right atrial size is normal. Mitral Valve: The mitral valve is grossly normal. There is mild to moderate mitral regurgitation. Aortic Valve: The aortic valve opens well. No aortic regurgitation is present. Tricuspid Valve: The tricuspid valve is normal in structure and function. There is trace tricuspid regurgitation. Pulmonic Valve: The pulmonic valve is not well visualized. There is no pulmonic valvular regurgitation. Great Vessels: The aortic root is normal size. The ascending aorta is normal in size. The aortic arch is normal in size. The inferior vena cava was not visualized. Pericardium/ Pleura There is no pericardial effusion. There is no pleural effusion. MMode/2D Measurements & Calculations LVIDd: 5.4 cm Ao root diam: 2.8 cm LVIDs: 3.1 cm Aortic Jxn: 2.5 cm FS: 43.3 % asc Aorta Diam: 3.3 cm EPSS: 0.39 cm Ao Arch Diam (Prox Trans): 3.0 cm IVSd: 1.1 cm LVPWd: 0.95 cm LV cho. diameter/BSA (cm/m^2): 2.1 LV sys. diameter/BSA (cm/m^2): 1.2 LA dimension: 4.2 cm RA long axis: 5.2 cm LA A2 area: 20.7 cm2 RA area: 15.9 cm2 LA A4 area: 21.5 cm2 RA vol: 41.3 ml LA length (vol): 5.0 cm RA : 15.7 ml/m2 LA vol: 74.8 ml RVDd major: 5.2 cm LA vol index: 28.4 ml/m2 RVD1 (basal): 3.4 cm RVD2 (mid): 2.6 cm Doppler Measurements & Calculations Ao V2 max: 157.6 cm/sec TR max faizan: 255.2 cm/sec Ao V2 mean: 110.7 cm/sec TR max P.1 mmHg Ao max P.9 mmHg PA V2 max: 121.4 cm/sec Ao mean P.5 mmHg PA V2 mean: 77.8 cm/sec Ao V2 VTI: 30.1 cm PA mean P.9 mmHg PA Accel Time: 0.11 sec MV V2 mean: 101.3 cm/sec MV mean P.1 mmHg MV V2 VTI: 33.1 cm Electronically signed by: Adrianna Daly M.D. on Reading Physician:11/07/2018 02:59 PM
== END ==
PROVIDERS: PCP Family Medicine; Visit Provider Internal Medicine Cardiovascular Disease
DX: I34.0 Nonrheumatic mitral (valve) insufficiency (principal); I47.1 Supraventricular tachycardia
CPT/HCPCS: 93306; Q9957

== ENCOUNTER 2018-11-09 10:15 | Outpatient (RCR) | payer MEDICARE, MEDICAID, SELFPAY ==
--- NOTE | 2019-01-20 12:22 | ST.OPPOC ---
Care Team Visit Care Team Role Provider Type Rolanda Raymond MD Primary Care Provider Physician Address: [address] [place] [address], [id number] Marcos Nieto MD Attending Provider Physician Address: [address] [place] [address], [id number] Speech Pathology Plan of Care General Information 38-yr-old female with extensive medical history reports increased hoarse voice since ~3 yrs ago. Pt also reports chronic coughing for the past 3 yrs likely d/t asthma complicated by chronic pulmonary disease. The pt received antibiotics for 2 months from Apr-May 2018, which she states helped reduce coughing. She discontinued antibiotics for a 1-wk trial and coughing resumed. She was placed on antibiotics again and is currently 2 months into a 5-month course. On 07/13/18 the pt was seen by Dr. Nieto who performed laryngoscopy and reported normal VF movement without pathology, erythmatic VF with thick sticky saliva. The pt also c/o swallow difficulty and reports having had Modified Barium Swallow Study at this hospital ~4 yrs ago. She states she was seen by [facility] in outpatient and was told there was nothing they could do to help my swallow. Will attempt to obtain medical records for verification. Currently, the pt c/o feeling sticking sensation in throat, coughing and choking on both solids and liquids. Pt reports cotton mouth likely from medication, which she chews gum and drinks water to manage. Vocal assessment was completed on 08/04/18 at [facility] the results of that evaluation indicated that the Pt presented with severe dysphonia characterized by hoarseness and strain with glottal corona and occasional diplophonia. Skilled intervention is medically necessary targeting breath support for speech, vocal hygiene and appropriate use, reduction of glottal corona, and exercises to decrease tension for improved vocal quality. Visit Number 4 Plan of Care Dates 09/21/18-12/20/18 Insurance Information Medicare disability Chief Complaint(s) Voice Additional Areas of Concern Dysphagia Rehabilitation Expectation/ Improve vocal quality to WFL Goals: Patient Goals Patient Knowledge/Awareness of Excellent [facility] Role in Treatment Patient/Caregiver Compliance Fair with Home Exercise Program Short Term Goals 1. The pt will demonstrate diaphgramatic breathing at rest to increase breath support for speech. 2. The pt will read sentences with <10% glottal corona across 10 trials. 3. The pt will perform laryngeal relaxation techniques (e.g., neck and shoulder stretches, easy onset voicing) with 80% accuracy to reduce strain in voicing. 4. The pt will demonstrate understanding of vocal abuse by identifying 3 methods for reducing abusive behavior in her functional environment Crm Business Analyst Goals 1. The pt will eliminate vocal abuse in 90% of opportunities, as measured by pt report and clinical judgment. 2. The pt will sustain vowel phonation for 15 seconds with clear vocal quality. 3. The pt will exhibit glottal corona in <10% of speech across 10-minute conversation. 4. The pt will exhibit vocal quality WNL. Treatment Activities Ongoing discussion of diaphragmatic breathing as well as oronasal resonance training. Pt brought a recent summary of her visit with Dr Areli Monae. Dr. Monae recommended a complete pulmonary function test and a CT scan of her upper chest. In addition, she was referred for GI assessment, which she states has not happened . Dorinda reported that she is having family issues that have added to her stress as well. Medically, Dorinda's reported diagnoses as well as her overall stress are interfering with her ability to perform exercises necessary for vocal therapy success. A long discussion of the impact of her current medical and home situations on therapeutic prognosis. Discharge from at this time was recommended until she has more information and ability to participate in therapy. Rehabilitation Potential Fair Impairments Identified Vocal Quality,Vocal Hygiene Progress Towards Goals Slow Progress,Appropriate for Discharge Assessment of Improvement Patient has vocal and resonant exercises at home . Implementation of diaphragmatic breathing will be beneficial both for her voice as well as to promote relaxation given her increased stress level. Reviewed with Patient Progress Being Made,Home Exercise Program Patient Understanding Good Length of Therapy Recommended Other Treatment Frequency No Further Therapy Treatment Duration 45 Minutes Therapeutic Contents Voice Training Patient Recommendations Discharge to Home Exercise Additional Recommended Counseling re: stress management Referrals Recommended Referrals GI,Primary Care Physician,Other
== END 2019-01-28 10:13 | disposition home or self-care (01) ==
LOC: SP 10:15
PROVIDERS: PCP Family Medicine; Visit Provider Otolaryngology
DX: R06.00 Dyspnea, unspecified (principal)
CPT/HCPCS: 92507; 92520; 92524; 92610

== ENCOUNTER → 2018-11-12 09:04 | Outpatient (CLI) | payer MEDICARE, MEDICAID, SELFPAY ==
--- NOTE | 2018-11-20 14:49 | PM.PFT.1 ---
Pulmonary Function Test Referral & Results Date Patient Seen: 11/12/18 Requesting provider: Dakota Monae Indication: Restrictive lung disease Results: The spirometry demonstrates an FVC of 2.69 L which is 60% of predicted. The FEV1 was measured at 2.43 L which is 66% of predicted. The FEV1/FVC ratio was 90 which is 100% of predicted. Following the administration of bronchodilator there was no appreciable change. Lung volumes show an SVC of 2.76 L which is 67% of predicted. The diffusing capacity was measured at 24.10 which is 74% of predicted. No hemoglobin value was provided, so no correction for potential anemia could be made, if appropriate. The maximum voluntary ventilation was normal Interpretation: This study demonstrates moderate obstructive lung disease based on reduction in FEV1. There is no evidence of benefit following bronchodilator administration There is also mild restrictive lung disease present based on reduction in SVC There is also a mild reduction in diffusing capacity suggesting an element of disease at the capillary alveolar level Compared to PFTs performed in August 2011, current study shows a decline in FEV1, and SVC. Clinical correlation suggested
== END ==
PROVIDERS: PCP Family Medicine; Visit Provider Internal Medicine
DX: J98.4 Other disorders of lung (principal)
CPT/HCPCS: 94060; 94726; 94729

== ENCOUNTER → 2018-11-18 15:19 | Outpatient (CLI) | payer MEDICARE, MEDICAID, SELFPAY ==
[2018-11-18 16:44] LABS: Fractionated Inspired Oxygen 21; HCO3 ABG 29 mmol/L (22-26); Oxygen Saturation ABG 93 % (95-100); PCO2 ABG 49.1 mmHg (35-45); PO2 ABG 72 mmHg (80-100); TCO2 ABG 30 mmol/L (21-31); pH ABG 7.37 (7.35-7.45)
[2018-11-18 17:20] LABS: Vitamin D 25 Hydroxy (D3) 33.6 ng/mL (30.0-100.0)
[2018-11-20 14:06] LABS: Immunoglobulin A 350 mg/dL (81-463); Immunoglobulin G, Quantitative 985 mg/dL (694-1618); Immunoglobulin M, Quantitative 95 mg/dL (48-271)
[2018-11-20 16:30] LABS: IgG Subclass 1 502 mg/dL (382-929); IgG Subclass 2 371 mg/dL (241-700); IgG Subclass 3 21 mg/dL (22-178); IgG Subclass 4 14.5 mg/dL (4.0-86.0); IgG Total 923 mg/dL (694-1618)
== END ==
PROVIDERS: Family Provider Physician Assistant Medical; PCP Family Medicine; Visit Provider Internal Medicine
DX: D80.6 Antibody deficiency with near-normal immunoglobulins or with hyperimmunoglobulinemia (principal); J45.50 Severe persistent asthma, uncomplicated; D84.9 Immunodeficiency, unspecified; R09.02 Hypoxemia; E55.9 Vitamin D deficiency, unspecified; F43.10 Post-traumatic stress disorder, unspecified; F40.01 Agoraphobia with panic disorder; F33.2 Major depressive disorder, recurrent severe without psychotic features; F41.9 Anxiety disorder, unspecified
CPT/HCPCS: 36415; 36600; 82306; 82784; 82787; 82805; 86317; 90837

== ENCOUNTER 2018-11-23 13:00 | Outpatient (RCR) | payer MEDICARE, MEDICAID, SELFPAY ==
[2018-09-21 09:00] VITALS: PULSE 108; PULSE 124; O2SAT 94; O2SAT 96
--- NOTE | 2018-09-21 12:00 | PT.OIE ---
Current Diagnoses Dizziness and giddiness (09/21/18) Past Medical History (Last Reviewed 06/30/18 @ 10:13 by Christopher aPyne PA-C) Asthma (Chronic) Agoraphobia (Chronic) Anxiety (Chronic) Asthma with allergic rhinitis (Chronic) Bursitis of left hip (Chronic) Chronic back pain (Chronic) Chronic cough (Chronic) Chronic headaches (Chronic) Corneal pigmentation of both eyes (Chronic) Depression (Chronic) Fibromyalgia (Chronic) Frequent UTI (Chronic) GERD (gastroesophageal reflux disease) (Chronic) GI bleeding (Chronic) Gastric ulcer (Chronic) Gastroparesis (Chronic) Hayfever (Chronic) Hearing loss (Chronic) Hemorrhoids (Chronic) IBS (irritable bowel syndrome) (Chronic) Interstitial cystitis (Chronic) MRSA infection (Chronic) Migraines (Chronic) PTSD (post-traumatic stress disorder) (Chronic) PUD (peptic ulcer disease) (Chronic) Panic attacks (Chronic) Partial blindness (Chronic) Rheumatoid arthritis (Chronic) Scoliosis (Chronic) Tachycardia (Chronic) Tinnitus (Chronic) Vertigo (Chronic) Abnormal Pap smear of cervix (Resolved) Anal fissure (Resolved 01/24/12) Anemia (Resolved) BRCA negative (Resolved) Endometriosis (Resolved) History of endoscopy (Resolved 05/04/07) History of endoscopy (Resolved 01/10/15) History of heavy periods (Resolved) History of recurrent ear infection (Resolved) History of tilt table evaluation (Resolved 05/02/15) Irregular periods/menstrual cycles (Resolved) Kidney infection (Resolved 2002) Ovarian cyst (Resolved) Painful menstrual periods (Resolved) Recurrent sinusitis (Resolved) Vaginal delivery (Resolved) Past Surgical History (Last Reviewed 06/30/18 @ 10:13 by Christopher Payne PA-C) Anesthesia complication (Resolved) History of bladder surgery (Resolved 02/2001) History of bladder suspension procedure (Resolved 06/14/13) History of colonoscopy (Resolved 01/10/15) History of hip surgery (Resolved 12/13/92) History of rectal surgery (Resolved 01/24/12) History of third molar tooth extraction (Resolved 1997) Status post appendectomy (Resolved 08/1996) Status post dilation and curettage (Resolved 10/2009) Status post hysterectomy (Resolved 05/07/10) Status post laparoscopic cholecystectomy (Resolved 03/11/06) Status post laparoscopy (Resolved 1999) Status post laparoscopy (Resolved 05/04/07) Provider Visit Care Team Role Provider Type Rolanda Raymond MD Primary Care Provider Physician Specialty: Family Practice Address: [address] [place] [address], [address] Email: [email or web address] Marcos Nieto MD Attending Provider Physician Specialty: Ear, Nose, Throat Address: [address] [place] [address], [id number] Email: Physical Therapy Initial Evaluation PT-OP-A Visit Information Start: 09/21/18 07:35 Freq: Status: Active Protocol: Document 09/21/18 09:00 AMB (Rec: 09/21/18 11:18 AMB [email or web address]) Out-Patient Physical Therapy Visit Information Visit Information Visit Type Initial Evaluation Visit Start Time 09:00 Visit Stop Time 09:45 Total Visit Minutes 45 Visit Number 1 Evaluation Information Evaluation Date 09/21/18 PT-OP-B Current Condition Start: 09/21/18 07:35 Freq: Status: Active Protocol: Document 09/21/18 09:00 AMB (Rec: 09/21/18 11:18 AMB [email or web address]) Current Condition History of Current Condition Onset Date 4 years ago Current Complaints Dizziness History of Current Condition The patient states that she injured her back in 2006 and has been disabled since that time. Her overall dizziness increased about 4 years ago, to the point where she had multiple falls. She has not had any falls in the last year because she is not moving as much. She does not drive, and has a caregiver who helps her with dressing and bathing ( she does not shower due to fall risk). She has a history of migraines with 1/day. She states she is generally constantly nauseous and dizzy (the room is spinning even when she is stationary, although movement does make this feeling worse). She reports L tinnitis and that sitting up in bed increases her symptoms. Prior Treatments and Tests VNG per Dr. Nieto normal except for sensory organization testing. Treatment Goals Patient/Caregiver Goals Be able to get around the house with less dizziness/ nausea Prior Functional Status Baseline Function- Other Pt has been disabled for over 10 years due to back pain but dizziness has been increasing so that now she has a difficult time walking for even short distances. ( shortness of breath and back pain also make walking difficult). Personal Factors Other Personal Factors That May Effect On disability, back pain, neck Therapy/Recovery pain, migraines, fibromyalgia . PT-OP-C Subjective Start: 09/21/18 07:35 Freq: Status: Active Protocol: Document 09/21/18 09:00 AMB (Rec: 09/21/18 11:18 AMB [email or web address]) Patient Questionnaires Dizziness Handicap Inventory DHI Score 60 DHI Functional Impairment 60 to 79% Impaired (Score 60- 79) PT-OP-D Balance Start: 09/21/18 07:35 Freq: Status: Active Protocol: Document 09/21/18 09:00 AMB (Rec: 09/21/18 15:58 AMB [email or web address]) Balance Tests Single Limb Standing Single Limb- Right unable Single Limb- Left unable Semi-Tandem Standing Semi-Tandem Standing Balance 10 sec PT-OP-E Functional Tests Start: 09/22/18 07:38 Freq: Status: Active Protocol: Document 09/21/18 09:00 AMB (Rec: 09/22/18 07:46 AMB [id number]) Functional Tests Dynamic Gait Index (DGI) Score 16 DGI Impairment Rating 20 to <40% Impaired (Score 15- 19) PT-OP-H Neuro Start: 09/21/18 07:35 Freq: Status: Active Protocol: Document 09/21/18 09:00 AMB (Rec: 09/22/18 08:23 AMB [email or web address]) Vital Signs Pulse 1 Pulse at Rest (bpm) 108 Pulse With Activity (bpm) 124 Pulse Assessment Method Pulse Ox/Monitor Oxygen Pulse Oximetry at Rest (%) (95-100 %) 94 L Pulse Oximetry with Activity (%) (95-100 96 %) PT-OP-J Posture/Palpation/Skin Start: 09/21/18 07:35 Freq: Status: Active Protocol: Document 09/21/18 09:00 AMB (Rec: 09/22/18 07:52 AMB [id number]) Posture Evaluation Comments Posture Comments Pt with a large abdomen that pulls her into lumbar lordosis with standing. Forward head with sitting, lack of trunk rotation and wide didi with gait. PT-OP-O Vestibular Start: 09/21/18 07:35 Freq: Status: Active Protocol: Document 09/21/18 09:00 AMB (Rec: 09/21/18 15:56 AMB [email or web address]) Vestibular Assessment Visual Testing Smooth Pursuits Horizontal WNL Smooth Pursuits Vertical WNL PT-OP-Q Treatments Start: 09/21/18 07:35 Freq: Status: Active Protocol: Document 09/21/18 09:00 AMB (Rec: 09/21/18 16:00 AMB [email or web address]) Neuro Re-Education Treatment Vestibular Rehabilitation VOR Retraining Details standing Comments horizontal looking at thumb PT-OP-T Assessment and Plan Start: 09/21/18 07:35 Freq: Status: Active Protocol: Document 09/21/18 09:00 AMB (Rec: 09/22/18 08:13 AMB [id number]) Physical Therapy Assessment Rehab Potential Rehabilitation Potential Fair Evaluation Complexity Number of Personal Factors/Comorbidities 3 or More Number of Body Systems Impaired 4 or More Clinical Presentation at Evaluation Evolving Impairments Impairments Balance Gait Pain Posture Goals Three Impairment balance Short Term Goal (STG) The patient will improve her DGI score to 20/24. STG Duration 6 weeks Straight Knife Cutter Machine Goal (LTG) The patient will maintain semi -tandem stance for 30 seconds to show improved static balance. LTG Duration 12 weeks Two Impairment functional mobility Short Term Goal (STG) The patient will perform bed mobility without an increase in dizziness. STG Duration 6 weeks Senior Care Goal (LTG) The patient will walk from her bedroom to her living room without an increase in dizziness. LTG Duration 12 weeks One Impairment dizziness Short Term Goal (STG) The patient will field sales trainer her kitchen for 5 minutes without an increase in dizziness. STG Duration 6 weeks Straight Knife Cutter Machine Goal (LTG) The patient will stand with eyes closed and narrow base of support for 1 minute to help improver her safety with showering. LTG Duration 12 weeks Assessment Summary Assessment Dorinda presents with multiple medical comorbidities that make her general mobility challenging. The focus of this bout of therapy will be her dizziness and her balance. Her back pain and shortness of breath will be limiting factors. That said, she will benefit from PT to improve her balance, decrease her fall risk, and empower her to increase her overall activity with less dizziness. Physical Therapy Plan Frequency and Duration Frequency of Treatment Every Other Week Duration of Treatment 12 weeks Plan of Care Start Date 09/21/18 Plan of Care End Date 12/14/18 Therapeutic Interventions Therapeutic Interventions Balance Training Gait Training Home Exercise Program Neuromuscular Re-education Patient/Caregiver Education Self-Care/Home Management Therapeutic Activities Therapeutic Exercises Next Visit Focus/Plan Next Note Type Treatment Note Next Visit Plan Progress balance training as tolerated
--- NOTE | 2018-09-21 12:00 | PT.OPPOC ---
Current Diagnoses Dizziness and giddiness (09/21/18) Provider Visit Care Team Role Provider Type Rolanda Raymond MD Primary Care Provider Physician Specialty: Family Practice Address: [address] [place] [address], [id number] Email: [email or web address] Marcos Nieto MD Attending Provider Physician Specialty: Ear, Nose, Throat Address: [address] [place] [address], [id number] Email: Plan Of Care PT-OP-T Assessment and Plan Start: 09/21/18 07:35 Freq: Status: Active Protocol: Document 09/21/18 09:00 AMB (Rec: 09/22/18 08:13 AMB [id number]) Physical Therapy Assessment Rehab Potential Rehabilitation Potential Fair Evaluation Complexity Number of Personal Factors/Comorbidities 3 or More Number of Body Systems Impaired 4 or More Clinical Presentation at Evaluation Evolving Impairments Impairments Balance Gait Pain Posture Goals Three Impairment balance Short Term Goal (STG) The patient will improve her DGI score to 20/24. STG Duration 6 weeks Hazardous Material Technician Goal (LTG) The patient will maintain semi -tandem stance for 30 seconds to show improved static balance. LTG Duration 12 weeks Two Impairment functional mobility Short Term Goal (STG) The patient will perform bed mobility without an increase in dizziness. STG Duration 6 weeks Hazardous Material Technician Goal (LTG) The patient will walk from her bedroom to her living room without an increase in dizziness. LTG Duration 12 weeks One Impairment dizziness Short Term Goal (STG) The patient will airline operations agent her kitchen for 5 minutes without an increase in dizziness. STG Duration 6 weeks Custodial Goal (LTG) The patient will stand with eyes closed and narrow base of support for 1 minute to help improver her safety with showering. LTG Duration 12 weeks Assessment Summary Assessment Dorinda presents with multiple medical comorbidities that make her general mobility challenging. The focus of this bout of therapy will be her dizziness and her balance. Her back pain and shortness of breath will be limiting factors. That said, she will benefit from PT to improve her balance, decrease her fall risk, and empower her to increase her overall activity with less dizziness. Physical Therapy Plan Frequency and Duration Frequency of Treatment Every Other Week Duration of Treatment 12 weeks Plan of Care Start Date 09/21/18 Plan of Care End Date 12/14/18 Therapeutic Interventions Therapeutic Interventions Balance Training Gait Training Home Exercise Program Neuromuscular Re-education Patient/Caregiver Education Self-Care/Home Management Therapeutic Activities Therapeutic Exercises Next Visit Focus/Plan Next Note Type Treatment Note Next Visit Plan Progress balance training as tolerated Plan of Care Dates Plan of Care Start Date 09/21/18 Plan of Care End Date 12/14/18 Please Sign and Return: I have reviewed this Plan of Care and certify that the skilled therapy services above are required to meet the patient?s needs. Physician Signature Date Printed Name and Credentials Clinical Instructor Signature Printed Name and Credentials
--- NOTE | 2018-10-28 16:00 | PT.OTN ---
Current Diagnoses Dizziness and giddiness (10/28/18) Physical Therapy Treatment Note PT-OP-A Visit Information Start: 09/21/18 07:35 Freq: Status: Active Protocol: Document 10/28/18 13:00 AMB (Rec: 10/29/18 09:33 AMB [email or web address]) Out-Patient Physical Therapy Visit Information Visit Information Visit Type Treatment Note Visit Start Time 13:00 Visit Stop Time 13:45 Total Visit Minutes 45 Visit Number 2 PT-OP-B Current Condition Start: 09/21/18 07:35 Freq: Status: Active Protocol: Document 09/21/18 09:00 AMB (Rec: 09/21/18 11:18 AMB [email or web address]) Current Condition History of Current Condition Onset Date 4 years ago Current Complaints Dizziness History of Current Condition The patient states that she injured her back in 2006 and has been disabled since that time. Her overall dizziness increased about 4 years ago, to the point where she had multiple falls. She has not had any falls in the last year because she is not moving as much. She does not drive, and has a caregiver who helps her with dressing and bathing ( she does not shower due to fall risk). She has a history of migraines with 1/day. She states she is generally constantly nauseous and dizzy (the room is spinning even when she is stationary, although movement does make this feeling worse). She reports L tinnitis and that sitting up in bed increases her symptoms. Prior Treatments and Tests VNG per Dr. Nieto normal except for sensory organization testing. Treatment Goals Patient/Caregiver Goals Be able to get around the house with less dizziness/ nausea Prior Functional Status Baseline Function- Other Pt has been disabled for over 10 years due to back pain but dizziness has been increasing so that now she has a difficult time walking for even short distances. ( shortness of breath and back pain also make walking difficult). Personal Factors Other Personal Factors That May Effect On disability, back pain, neck Therapy/Recovery pain, migraines, fibromyalgia . PT-OP-C Subjective Start: 09/21/18 07:35 Freq: Status: Active Protocol: Document 10/28/18 13:00 AMB (Rec: 10/29/18 09:33 AMB [email or web address]) OP-PT Subjective Patient Comments Patient Comments Pt states she has had one fall since her last appointment. She has been in bed a lot, but on her phone when in bed. Her daughter has been home a lot too, truant. She is hopefull she could get a 4WW and that would allow her to walk more, because she could take it with her and use the seat as needed. Current migraine. PT-OP-D Balance Start: 09/21/18 07:35 Freq: Status: Active Protocol: Document 09/21/18 09:00 AMB (Rec: 09/21/18 15:58 AMB [email or web address]) Balance Tests Single Limb Standing Single Limb- Right unable Single Limb- Left unable Semi-Tandem Standing Semi-Tandem Standing Balance 10 sec PT-OP-E Functional Tests Start: 09/22/18 07:38 Freq: Status: Active Protocol: Document 09/21/18 09:00 AMB (Rec: 09/22/18 07:46 AMB [id number]) Functional Tests Dynamic Gait Index (DGI) Score 16 DGI Impairment Rating 20 to <40% Impaired (Score 15- 19) PT-OP-H Neuro Start: 09/21/18 07:35 Freq: Status: Active Protocol: Document 09/21/18 09:00 AMB (Rec: 09/22/18 08:23 AMB [email or web address]) Vital Signs Pulse 1 Pulse at Rest (bpm) 108 Pulse With Activity (bpm) 124 Pulse Assessment Method Pulse Ox/Monitor Oxygen Pulse Oximetry at Rest (%) (95-100 %) 94 L Pulse Oximetry with Activity (%) (95-100 96 %) PT-OP-J Posture/Palpation/Skin Start: 09/21/18 07:35 Freq: Status: Active Protocol: Document 09/21/18 09:00 AMB (Rec: 09/22/18 07:52 AMB [id number]) Posture Evaluation Comments Posture Comments Pt with a large abdomen that pulls her into lumbar lordosis with standing. Forward head with sitting, lack of trunk rotation and wide didi with gait. PT-OP-O Vestibular Start: 09/21/18 07:35 Freq: Status: Active Protocol: Document 09/21/18 09:00 AMB (Rec: 09/21/18 15:56 AMB [email or web address]) Vestibular Assessment Visual Testing Smooth Pursuits Horizontal WNL Smooth Pursuits Vertical WNL PT-OP-Q Treatments Start: 09/21/18 07:35 Freq: Status: Active Protocol: Document 10/28/18 13:00 AMB (Rec: 10/29/18 09:33 AMB [email or web address]) Gait Training Gait Activity 1 Description Walking with head turns, vertical/horizontal Comments pt with more sx with looking up. Neuro Re-Education Treatment Balance Activities 1 Details blue foam balance Comments in the corner, EO EC Vestibular Rehabilitation VOR Retraining Details standing Comments horizontal looking at thumb, pt reports she has not been doing this as her HEP since she lost her paper. PT-OP-T Assessment and Plan Start: 09/21/18 07:35 Freq: Status: Active Protocol: Document 10/28/18 13:00 AMB (Rec: 10/29/18 09:33 AMB [email or web address]) Physical Therapy Assessment Assessment Summary Assessment Pt requires multiple rest breaks due to back pain. Difficulty staying on one track. Pt would need a bariatric walker, she states she is 345# currently. Physical Therapy Plan Next Visit Focus/Plan Next Note Type Treatment Note Next Visit Plan Progress balance training as tolerated, follow up on 4WW
--- NOTE | 2018-11-09 16:21 | PT.OTN ---
Current Diagnoses Dizziness and giddiness (11/09/18) Physical Therapy Treatment Note PT-OP-A Visit Information Start: 09/21/18 07:35 Freq: Status: Active Protocol: Document 11/09/18 11:15 AMB (Rec: 11/09/18 16:21 AMB [email or web address]) Out-Patient Physical Therapy Visit Information Visit Information Visit Type Treatment Note Visit Start Time 11:15 Visit Stop Time 12:00 Total Visit Minutes 45 Visit Number 3 PT-OP-B Current Condition Start: 09/21/18 07:35 Freq: Status: Active Protocol: Document 09/21/18 09:00 AMB (Rec: 09/21/18 11:18 AMB [email or web address]) Current Condition History of Current Condition Onset Date 4 years ago Current Complaints Dizziness History of Current Condition The patient states that she injured her back in 2006 and has been disabled since that time. Her overall dizziness increased about 4 years ago, to the point where she had multiple falls. She has not had any falls in the last year because she is not moving as much. She does not drive, and has a caregiver who helps her with dressing and bathing ( she does not shower due to fall risk). She has a history of migraines with 1/day. She states she is generally constantly nauseous and dizzy (the room is spinning even when she is stationary, although movement does make this feeling worse). She reports L tinnitis and that sitting up in bed increases her symptoms. Prior Treatments and Tests VNG per Dr. Nieto normal except for sensory organization testing. Treatment Goals Patient/Caregiver Goals Be able to get around the house with less dizziness/ nausea Prior Functional Status Baseline Function- Other Pt has been disabled for over 10 years due to back pain but dizziness has been increasing so that now she has a difficult time walking for even short distances. ( shortness of breath and back pain also make walking difficult). Personal Factors Other Personal Factors That May Effect On disability, back pain, neck Therapy/Recovery pain, migraines, fibromyalgia . PT-OP-C Subjective Start: 09/21/18 07:35 Freq: Status: Active Protocol: Document 11/09/18 11:15 AMB (Rec: 11/09/18 16:21 AMB [email or web address]) OP-PT Subjective Patient Comments Patient Comments The patient continues to have difficulty with getting to the bathroom at night. She has difficulty performing a Kegel and has urgency so she rushes to the bathroom, and does notice dizziness with this. PT-OP-D Balance Start: 09/21/18 07:35 Freq: Status: Active Protocol: Document 09/21/18 09:00 AMB (Rec: 09/21/18 15:58 AMB [email or web address]) Balance Tests Single Limb Standing Single Limb- Right unable Single Limb- Left unable Semi-Tandem Standing Semi-Tandem Standing Balance 10 sec PT-OP-E Functional Tests Start: 09/22/18 07:38 Freq: Status: Active Protocol: Document 09/21/18 09:00 AMB (Rec: 09/22/18 07:46 AMB [id number]) Functional Tests Dynamic Gait Index (DGI) Score 16 DGI Impairment Rating 20 to <40% Impaired (Score 15- 19) PT-OP-H Neuro Start: 09/21/18 07:35 Freq: Status: Active Protocol: Document 09/21/18 09:00 AMB (Rec: 09/22/18 08:23 AMB [email or web address]) Vital Signs Pulse 1 Pulse at Rest (bpm) 108 Pulse With Activity (bpm) 124 Pulse Assessment Method Pulse Ox/Monitor Oxygen Pulse Oximetry at Rest (%) (95-100 %) 94 L Pulse Oximetry with Activity (%) (95-100 96 %) PT-OP-J Posture/Palpation/Skin Start: 09/21/18 07:35 Freq: Status: Active Protocol: Document 09/21/18 09:00 AMB (Rec: 09/22/18 07:52 AMB [id number]) Posture Evaluation Comments Posture Comments Pt with a large abdomen that pulls her into lumbar lordosis with standing. Forward head with sitting, lack of trunk rotation and wide didi with gait. PT-OP-O Vestibular Start: 09/21/18 07:35 Freq: Status: Active Protocol: Document 09/21/18 09:00 AMB (Rec: 09/21/18 15:56 AMB [email or web address]) Vestibular Assessment Visual Testing Smooth Pursuits Horizontal WNL Smooth Pursuits Vertical WNL PT-OP-Q Treatments Start: 09/21/18 07:35 Freq: Status: Active Protocol: Document 11/09/18 11:15 AMB (Rec: 11/09/18 16:21 AMB [email or web address]) Therapeutic Exercises Standing Exercises 1 Standing Exercise Name sit to stand Comments Spo2 dropped to 94, HR up to 120 Gait Training Gait Activity 1 Description Walking with head turns, vertical/horizontal Comments pt with more sx with looking up. with and without 4WW. adjusted 4WW and instructed in curb managment. Pt will have difficulty lifting 4WW into car, but since she doesn't drive feels that she will have someone there to help her. PT-OP-T Assessment and Plan Start: 09/21/18 07:35 Freq: Status: Active Protocol: Document 11/09/18 11:15 AMB (Rec: 11/09/18 16:21 AMB [email or web address]) Physical Therapy Assessment Assessment Summary Assessment The patient did well with the 4WW, given her fall history encouraged her to take time with transfers. Pt reports she will be walking with caregiver only when out of the house, encouraged her to try this before next visit. Physical Therapy Plan Next Visit Focus/Plan Next Note Type Treatment Note Next Visit Plan Follow up on 4WW fit, progress balance training.
--- NOTE | 2018-11-23 16:35 | PT.OTN ---
Current Diagnoses Dizziness and giddiness (11/23/18) Physical Therapy Treatment Note PT-OP-A Visit Information Start: 09/21/18 07:35 Freq: Status: Active Protocol: Document 11/23/18 13:00 AMB (Rec: 11/23/18 13:24 AMB [id number]) Out-Patient Physical Therapy Visit Information Visit Information Visit Type Treatment Note Visit Start Time 13:00 Visit Stop Time 13:45 Total Visit Minutes 45 Visit Number 4 PT-OP-B Current Condition Start: 09/21/18 07:35 Freq: Status: Active Protocol: Document 09/21/18 09:00 AMB (Rec: 09/21/18 11:18 AMB [email or web address]) Current Condition History of Current Condition Onset Date 4 years ago Current Complaints Dizziness History of Current Condition The patient states that she injured her back in 2006 and has been disabled since that time. Her overall dizziness increased about 4 years ago, to the point where she had multiple falls. She has not had any falls in the last year because she is not moving as much. She does not drive, and has a caregiver who helps her with dressing and bathing ( she does not shower due to fall risk). She has a history of migraines with 1/day. She states she is generally constantly nauseous and dizzy (the room is spinning even when she is stationary, although movement does make this feeling worse). She reports L tinnitis and that sitting up in bed increases her symptoms. Prior Treatments and Tests VNG per Dr. Nieto normal except for sensory organization testing. Treatment Goals Patient/Caregiver Goals Be able to get around the house with less dizziness/ nausea Prior Functional Status Baseline Function- Other Pt has been disabled for over 10 years due to back pain but dizziness has been increasing so that now she has a difficult time walking for even short distances. ( shortness of breath and back pain also make walking difficult). Personal Factors Other Personal Factors That May Effect On disability, back pain, neck Therapy/Recovery pain, migraines, fibromyalgia . PT-OP-C Subjective Start: 09/21/18 07:35 Freq: Status: Active Protocol: Document 11/23/18 13:00 AMB (Rec: 11/23/18 13:24 AMB [id number]) OP-PT Subjective Patient Comments Patient Comments Pt continues to report difficulty with having the energy to move. PT-OP-D Balance Start: 09/21/18 07:35 Freq: Status: Active Protocol: Document 09/21/18 09:00 AMB (Rec: 09/21/18 15:58 AMB [email or web address]) Balance Tests Single Limb Standing Single Limb- Right unable Single Limb- Left unable Semi-Tandem Standing Semi-Tandem Standing Balance 10 sec PT-OP-E Functional Tests Start: 09/22/18 07:38 Freq: Status: Active Protocol: Document 09/21/18 09:00 AMB (Rec: 09/22/18 07:46 AMB [id number]) Functional Tests Dynamic Gait Index (DGI) Score 16 DGI Impairment Rating 20 to <40% Impaired (Score 15- 19) PT-OP-H Neuro Start: 09/21/18 07:35 Freq: Status: Active Protocol: Document 09/21/18 09:00 AMB (Rec: 09/22/18 08:23 AMB [email or web address]) Vital Signs Pulse 1 Pulse at Rest (bpm) 108 Pulse With Activity (bpm) 124 Pulse Assessment Method Pulse Ox/Monitor Oxygen Pulse Oximetry at Rest (%) (95-100 %) 94 L Pulse Oximetry with Activity (%) (95-100 96 %) PT-OP-J Posture/Palpation/Skin Start: 09/21/18 07:35 Freq: Status: Active Protocol: Document 09/21/18 09:00 AMB (Rec: 09/22/18 07:52 AMB [id number]) Posture Evaluation Comments Posture Comments Pt with a large abdomen that pulls her into lumbar lordosis with standing. Forward head with sitting, lack of trunk rotation and wide didi with gait. PT-OP-O Vestibular Start: 09/21/18 07:35 Freq: Status: Active Protocol: Document 09/21/18 09:00 AMB (Rec: 09/21/18 15:56 AMB [email or web address]) Vestibular Assessment Visual Testing Smooth Pursuits Horizontal WNL Smooth Pursuits Vertical WNL PT-OP-Q Treatments Start: 09/21/18 07:35 Freq: Status: Active Protocol: Document 11/23/18 13:00 AMB (Rec: 11/23/18 16:34 AMB [email or web address]) Therapeutic Exercises Sidelying Exercises 2 Sidelying Exercise Name hip abd Reps/Minutes 1x10 1 Sidelying Exercise Name clamshell Reps/Minutes 2x10 Sitting Exercises 2 Sitting Exercise Name knee extension in semi- recumbent Comments with TrA stupport 1 Sitting Exercise Name head turns in seated Standing Exercises 1 Standing Exercise Name sit to stand Comments Spo2 around 94-96 wiht HR 110 Neuro Re-Education Treatment Balance Activities 2 Details walking with head turns Comments horizontal/ vertical no AD Vestibular Rehabilitation VOR Retraining Details standing Comments horizontal looking at thumb, pt reports she has not been doing this as her HEP since she lost her paper. PT-OP-T Assessment and Plan Start: 09/21/18 07:35 Freq: Status: Active Protocol: Document 11/23/18 13:00 AMB (Rec: 11/23/18 16:34 AMB [email or web address]) Physical Therapy Assessment Assessment Summary Assessment Dorinda has been feeling overwhelmed with all of her medical tests for the last couple of weeks, so she has not been able to use her walker to get out and about. She can use it in the house though. She has not been doing much and has been trying to rest, and is fairly against trying to do more other than rest at this time. Physical Therapy Plan Next Visit Focus/Plan Next Note Type Treatment Note Next Visit Plan Progress stability training
--- NOTE | 2019-01-11 09:36 | PT.OPDS ---
Current Diagnoses Dizziness and giddiness (11/23/18) Provider Visit Care Team Role Provider Type Rolanda Raymond MD Primary Care Provider Physician Specialty: Family Practice Address: [address] [place], [address] Email: [email or web address] Marcos Nieto MD Attending Provider Physician Specialty: Ear, Nose, Throat Address: [address] [place] [address], [id number] Email: Visit Number Visit Number 4 Discharge Summary PT-OP-B Current Condition Start: 09/21/18 07:35 Freq: Status: Active Protocol: Document 09/21/18 09:00 AMB (Rec: 09/21/18 11:18 AMB [email or web address]) Current Condition History of Current Condition Onset Date 4 years ago Current Complaints Dizziness History of Current Condition The patient states that she injured her back in 2006 and has been disabled since that time. Her overall dizziness increased about 4 years ago, to the point where she had multiple falls. She has not had any falls in the last year because she is not moving as much. She does not drive, and has a caregiver who helps her with dressing and bathing ( she does not shower due to fall risk). She has a history of migraines with 1/day. She states she is generally constantly nauseous and dizzy (the room is spinning even when she is stationary, although movement does make this feeling worse). She reports L tinnitis and that sitting up in bed increases her symptoms. Prior Treatments and Tests VNG per Dr. Nieto normal except for sensory organization testing. Treatment Goals Patient/Caregiver Goals Be able to get around the house with less dizziness/ nausea Prior Functional Status Baseline Function- Other Pt has been disabled for over 10 years due to back pain but dizziness has been increasing so that now she has a difficult time walking for even short distances. ( shortness of breath and back pain also make walking difficult). Personal Factors Other Personal Factors That May Effect On disability, back pain, neck Therapy/Recovery pain, migraines, fibromyalgia . PT-OP-C Subjective Start: 09/21/18 07:35 Freq: Status: Active Protocol: Document 11/23/18 13:00 AMB (Rec: 03/18/19 13:24 AMB [id number]) OP-PT Subjective Patient Comments Patient Comments Pt continues to report difficulty with having the energy to move. PT-OP-D Balance Start: 09/21/18 07:35 Freq: Status: Active Protocol: Document 09/21/18 09:00 AMB (Rec: 09/21/18 15:58 AMB [email or web address]) Balance Tests Single Limb Standing Single Limb- Right unable Single Limb- Left unable Semi-Tandem Standing Semi-Tandem Standing Balance 10 sec PT-OP-E Functional Tests Start: 09/22/18 07:38 Freq: Status: Active Protocol: Document 09/21/18 09:00 AMB (Rec: 09/22/18 07:46 AMB [id number]) Functional Tests Dynamic Gait Index (DGI) Score 16 DGI Impairment Rating 20 to <40% Impaired (Score 15- 19) PT-OP-H Neuro Start: 09/21/18 07:35 Freq: Status: Active Protocol: Document 09/21/18 09:00 AMB (Rec: 09/22/18 08:23 AMB [email or web address]) Vital Signs Pulse 1 Pulse at Rest (bpm) 108 Pulse With Activity (bpm) 124 Pulse Assessment Method Pulse Ox/Monitor Oxygen Pulse Oximetry at Rest (%) (95-100 %) 94 L Pulse Oximetry with Activity (%) (95-100 96 %) PT-OP-J Posture/Palpation/Skin Start: 09/21/18 07:35 Freq: Status: Active Protocol: Document 09/21/18 09:00 AMB (Rec: 09/22/18 07:52 AMB [id number]) Posture Evaluation Comments Posture Comments Pt with a large abdomen that pulls her into lumbar lordosis with standing. Forward head with sitting, lack of trunk rotation and wide didi with gait. PT-OP-O Vestibular Start: 09/21/18 07:35 Freq: Status: Active Protocol: Document 09/21/18 09:00 AMB (Rec: 09/21/18 15:56 AMB [email or web address]) Vestibular Assessment Visual Testing Smooth Pursuits Horizontal WNL Smooth Pursuits Vertical WNL PT-OP-T Assessment and Plan Start: 09/21/18 07:35 Freq: Status: Active Protocol: Document 01/11/19 09:32 AMB (Rec: 01/11/19 09:36 AMB [email or web address]) Physical Therapy Assessment Goals Three Impairment balance Short Term Goal (STG) The patient will improve her DGI score to 20/24. STG Duration NOT MET Collection Correspondent Goal (LTG) The patient will maintain semi -tandem stance for 30 seconds to show improved static balance. LTG Duration NOT MET Two Impairment functional mobility Short Term Goal (STG) The patient will perform bed mobility without an increase in dizziness. STG Duration NOT MET Custodial Goal (LTG) The patient will walk from her bedroom to her living room without an increase in dizziness. LTG Duration NOT MET One Impairment dizziness Short Term Goal (STG) The patient will molding supervisor her kitchen for 5 minutes without an increase in dizziness. STG Duration PARTIALLY MET Custodial Goal (LTG) The patient will stand with eyes closed and narrow base of support for 1 minute to help improver her safety with showering. LTG Duration NOT MET Assessment Summary Assessment Dorinda attended physical therapy for 4 visits. She has not been seen for the past 6 weeks due to canceling her last 2 appointments. We called her and she feels that she is ready to be discharged at this time. Her progress in physical therapy was minimal due to her shortness of breath and back pain. Physical Therapy Plan Discharge Physical Therapy Discharge Reasons No Longer Attending PT
== END 2019-01-13 16:46 ==
LOC: PHYS 13:00
PROVIDERS: PCP Family Medicine; Visit Provider Otolaryngology
DX: R42 Dizziness and giddiness (principal)
CPT/HCPCS: 97110; 97112; 97116; 97162

== ENCOUNTER → 2018-12-09 09:07 | Outpatient (CLI) | payer MEDICARE, MEDICAID, SELFPAY ==
--- NOTE | 2018-12-09 09:31 | DI.CT.S_ITS ---
PROCEDURE: CT CHEST HIGH RESOLUTION INDICATIONS: RESTRICTIVE LUNG DISEASE TECHNIQUE: Noncontrast 1.0 and 5.0 mm thick contiguous axial sections from the pulmonary apex to the posterior costophrenic angles, with 7 mm thick coronal and sagittal MIP reformats. 1 mm thick dynamic expiratory images acquired through the upper, mid, and lower lungs. 1.0 mm thick axial sections acquired from the linnette to the posterior costophrenic angles in the prone end-inspiration position. For radiation dose reduction, the following was used: automated exposure control, adjustment of mA and/or kV according to patient size. COMPARISON: [facility], CT, CT ANGIO CHEST PE PROTOCOL, 04/06/2018, 18:44. FINDINGS: Image quality: Excellent. Lungs: No septal thickening, traction bronchiectasis, or honeycombing. No groundglass opacities. No acute consolidation. Dynamic images demonstrate no evidence of air-trapping. Pleura: No pleural effusions or pneumothorax. Mediastinum: Heart size is normal. No pericardial effusion. Thoracic aorta and central pulmonary arteries are normal in size. Esophagus is normal in caliber. Bones and chest wall: No suspicious bony lesions. No vertebral body compression fractures. Abdomen: Visualized upper abdominal solid organs and bowel loops appear normal. IMPRESSION: 1. No evidence of interstitial lung disease on CT. 2. No evidence of air-trapping. Dictated by: Jose Luis Pride M.D. on 12/09/2018 at 13:29 Approved by: Jose Luis Pride M.D. on 12/09/2018 at 13:46
== END ==
PROVIDERS: Family Provider Physician Assistant Medical; PCP Family Medicine; Visit Provider Internal Medicine
DX: J98.4 Other disorders of lung (principal)
CPT/HCPCS: 71250

== ENCOUNTER → 2018-12-23 14:34 | Outpatient (CLI) | payer MEDICARE, MEDICAID, SELFPAY | PROVIDERS: Family Provider Physician Assistant Medical; PCP Family Medicine; Visit Provider Physician Assistant Medical | DX: D80.6 Antibody deficiency with near-normal immunoglobulins or with hyperimmunoglobulinemia (principal) | CPT/HCPCS: 86317 ==

== ENCOUNTER → 2019-01-12 13:29 | Outpatient (CLI) | payer MEDICARE, MEDICAID, SELFPAY ==
[2019-01-12 13:56] LABS: Add Manual Diff / Slide Review NO; Basophils Absolute Auto 100 /uL (0-100); Basophils Percent Auto 0.8 % (0-2); Eosinophils Absolute Auto 100 /uL (0-450); Eosinophils Percent Auto 0.4 % (2-4); Hematocrit 38.9 % (36-46); Hemoglobin 12.3 g/dL (12.0-16.0); Lymphocytes Absolute Auto 2400 /uL (1100-4500); Lymphocytes Percent Auto 16.8 % (25-40); Mean Corpuscular HGB Conc 31.7 % (30-36); Mean Corpuscular Hemoglobin 28.1 PG (26-34); Mean Corpuscular Volume 88.8 fL (80-100); Monocytes Absolute Auto 500 /uL (0-900); Monocytes Percent Auto 3.6 % (3-14); Neutrophils Absolute Auto 11100 /uL (1500-7000); Neutrophils Percent Auto 78.4 % (50-75); Platelet Count 348 X10^3/uL (150-400); Red Blood Cell Count 4.38 X10^6/uL (4.0-5.2); Red Cell Distribution Width 15.5 % (11.6-14.8); White Blood Cell Count 14.2 X10^3/uL (4.5-11.0)
== END ==
PROVIDERS: PCP Family Medicine; Visit Provider Physician Assistant Medical
DX: J45.50 Severe persistent asthma, uncomplicated (principal)
CPT/HCPCS: 36415; 85025

== ENCOUNTER → 2019-01-25 08:38 | Outpatient (CLI) | payer MEDICARE, MEDICAID, SELFPAY ==
--- NOTE | 2019-01-25 | DI.CT.S_ITS ---
PROCEDURE: CT SINUS SCREEN WO CON INDICATIONS: SINUSITIS CHRONIC TECHNIQUE: Noncontrast 3.0 mm axial images acquired from the frontal sinuses to the mid-sella, with coronal and sagittal reformats. For radiation dose reduction, the following was used: automated exposure control, adjustment of mA and/or kV according to patient size. COMPARISON: [facility], CT, SINUS SCREEN, 07/11/2008, 11:23. [facility], CT, SINUS SCREEN WO CONTRAST, 02/17/2015, 4:40. FINDINGS: Image quality: Excellent. Maxillary Sinuses: No bony remodeling or destruction. Sinuses are clear. Ethmoid Air Cells: No bony remodeling or destruction. Sinuses are clear. Sphenoid Sinuses: No bony remodeling or destruction. Sinuses are clear. Frontal Sinuses: No bony remodeling or destruction. Sinuses are clear. Ostiomeatal Complexes: Ostiomeatal complexes are patent. No Last cells. Miscellaneous: Visualized intra-orbital contents are normal. There is a trace left-sided guy bullosa. There is mild leftward nasal septal deviation. IMPRESSION: No active paranasal sinus disease is seen. Mild leftward nasal septal deviation. No abnormal mastoid air cell fluid can be seen. Dictated by: Curry Cruz M.D. on 01/25/2019 at 9:04 Approved by: Curry Cruz M.D. on 01/25/2019 at 9:08
== END ==
PROVIDERS: PCP Family Medicine; Visit Provider Physician Assistant Medical
DX: J32.9 Chronic sinusitis, unspecified (principal); J34.2 Deviated nasal septum
CPT/HCPCS: 70486

== ENCOUNTER → 2019-02-24 14:55 | Outpatient (CLI) | payer MEDICARE, MEDICAID, SELFPAY ==
--- NOTE | 2019-02-24 14:58 | DI.US.S_ITS ---
PROCEDURE: US PERIPH VENOUS LOW EXTREM RT INDICATIONS: RT FOOT SWELLING TECHNIQUE: Real-time imaging, as well as color and pulse Doppler interrogation, were performed of the lower extremity deep veins from the inguinal ligament to the popliteal fossa. COMPARISON: None. FINDINGS: The common femoral, femoral and popliteal veins are normally compressible, and free of intraluminal thrombus. Color and pulse Doppler demonstrate normal phasic intraluminal flow. There is normal augmentation response to distal compression maneuver. IMPRESSION: Negative for deep venous thrombosis. Dictated by: Curry Cruz M.D. on 02/24/2019 at 16:00 Approved by: Curry Cruz M.D. on 02/24/2019 at 16:00
== END ==
PROVIDERS: PCP Family Medicine; Visit Provider Hospitalist
DX: M79.89 Other specified soft tissue disorders (principal); F40.01 Agoraphobia with panic disorder; F33.2 Major depressive disorder, recurrent severe without psychotic features; F41.9 Anxiety disorder, unspecified; F43.10 Post-traumatic stress disorder, unspecified
CPT/HCPCS: 90837; 93971

== ENCOUNTER 2019-04-02 12:02 | Emergency (ER) | payer MEDICARE, OTHER, MEDICAID, SELFPAY ==
[2019-04-02 12:13] VITALS: BP 160/100; PULSE 110; RESP 20; TEMP 37; O2SAT 100; BMI 50.9
--- NOTE | 2019-04-02 12:46 | ED_ITS ---
HPI - Animal Bite <Cinthia ArceoAMANDO - Last Filed: 04/02/19 21:53> General Chief Complaint: Animal Bite Stated Complaint: cat bite R&L arm Time Seen by Provider: 04/02/19 12:22 Source: patient Mode of arrival: ambulatory Limitations: no limitations History of Present Illness HPI narrative: 39-year-old female with a history of asthma and sleep apnea, presents emergency department today after being bitten by her cat yesterday on her right wrist. She states the wound became erythemic today and there was a small amount of pus that was discharge from the wound. She states her cat chayo hollins lives indoors and is not up-to-date on his shots but has had the rabies vaccine in the past. She denies any fevers, chills, chest pain, shortness of breath, headaches, change in saliva patterns, mentation difficulty, abdominal pain, nausea, vomiting, or diarrhea. Patient stated she would rather monitor her cat of the next 10 days for signs of rabies versus obtaining rabies prophylaxis. Related Data Home Medications Medication Instructions Recorded Confirmed albuterol sulfate HFA 90 2 puff INHALATION Q4-6H PRN 03/31/18 01/11/19 mcg/actuation aerosol inhaler verapamil ER 120 mg 24 hr 120 mg PO TID 03/31/18 01/11/19 capsule,extended release fluticasone propionate 100 2 inhalation INHALATION BID each 05/01/18 01/11/19 mcg/actuation blister powder for inhalation cholecalciferol (vitamin D3) 4,000 2,000 unit PO BID cap 10/08/18 01/11/19 unit capsule umeclidinium 62.5 mcg/actuation 1 inhalation INHALATION DAILY 10/08/18 01/11/19 blister powder for inhalation gabapentin 300 mg capsule 300 mg PO DAILY 11/06/18 01/11/19 fluconazole 100 mg tablet 100 mg PO BID tab 02/24/19 02/24/19 Previous Rx's Medication Instructions Recorded fluticasone furoate 200 1 inhalation INHALATION BEDTIME 05/06/18 mcg-vilanterol 25 mcg/dose #60 each inhalation powder omeprazole 40 mg capsule,delayed 40 mg PO BID #60 ecc 05/26/18 release gabapentin 600 mg tablet 600 mg PO BID #180 tab 10/06/18 fremanezumab-vfrm 225 mg/1.5 mL 225 mg SUBCUT QMONTH #1.5 ml 10/12/18 subcutaneous syringe diazepam 5 mg tablet 5 mg PO TID #90 tab 11/23/18 montelukast 10 mg tablet 10 mg PO BEDTIME #90 tab 12/31/18 amitriptyline 100 mg tablet 100 mg PO BEDTIME #90 tab 01/11/19 milnacipran 100 mg tablet 100 mg PO BID #180 tab 01/11/19 prazosin 1 mg capsule 3 mg PO BEDTIME #270 cap 01/11/19 baclofen 20 mg tablet 40 mg PO BEDTIME #60 tab 02/16/19 triamcinolone acetonide 55 mcg 2 spray INTRANASAL BEDTIME #16.9 ml 02/16/19 nasal spray aerosol dihydroergotamine 1 mg/mL 1 mg SUBCUT Q8H PRN #10 amp 02/18/19 injection solution hydroxyzine HCl 50 mg tablet 50 mg PO BID PRN #180 tab 02/19/19 lidocaine 5 % topical ointment 1 applictn TOP BID PRN #30 gram 02/24/19 magnesium oxide 500 mg tablet 1,000 mg PO BEDTIME #60 tab 03/24/19 amoxicillin-pot clavulanate 1 tab PO BID 7 Days #14 tab 04/02/19 [Augmentin] Allergies Allergy/AdvReac Type Severity Reaction Status Date / Time bupropion [BUPROPION] Allergy Mild facial rash Verified 04/02/19 12:17 hydrocodone [HYDROCODONE] Allergy Mild rash Verified 04/02/19 12:17 iodine [IODINE] Allergy Mild edema Verified 04/02/19 12:17 Review of Systems <AMANDO Contreras - Last Filed: 04/02/19 21:53> Review of Systems REVIEW OF SYSTEMS: GENERAL: Denies fever or chills. HENT: Denies head trauma. EYE: Denies double vision or vision loss. CARDIOVASCULAR: Denies syncope. MUSCULOSKELETAL: Denies weakness, or deformities. INTEGUMENTARY: Complains of cat bite to right arm, see HPI. NEURO: Denies numbness or tingling. PFSH <AMANDO Contreras - Last Filed: 04/02/19 21:53> Medical History Asthma (Chronic) Agoraphobia (Chronic) Anxiety (Chronic) Asthma with allergic rhinitis (Chronic) Bursitis of left hip (Chronic) Chronic back pain (Chronic) Chronic cough (Chronic) Chronic headaches (Chronic) Corneal pigmentation of both eyes (Chronic) Depression (Chronic) Fibromyalgia (Chronic) Frequent UTI (Chronic) GERD (gastroesophageal reflux disease) (Chronic) GI bleeding (Chronic) Gastric ulcer (Chronic) Gastroparesis (Chronic) Hayfever (Chronic) Hearing loss (Chronic) Hemorrhoids (Chronic) IBS (irritable bowel syndrome) (Chronic) Interstitial cystitis (Chronic) MRSA infection (Chronic) Migraines (Chronic) PTSD (post-traumatic stress disorder) (Chronic) PUD (peptic ulcer disease) (Chronic) Panic attacks (Chronic) Partial blindness (Chronic) Rheumatoid arthritis (Chronic) Scoliosis (Chronic) Tachycardia (Chronic) Tinnitus (Chronic) Vertigo (Chronic) Abnormal Pap smear of cervix (Resolved) Anal fissure (Resolved 01/24/12) Anemia (Resolved) BRCA negative (Resolved) Endometriosis (Resolved) History of endoscopy (Resolved 05/04/07) History of endoscopy (Resolved 01/10/15) History of heavy periods (Resolved) History of recurrent ear infection (Resolved) History of tilt table evaluation (Resolved 05/02/15) Irregular periods/menstrual cycles (Resolved) Kidney infection (Resolved 2002) Ovarian cyst (Resolved) Painful menstrual periods (Resolved) Recurrent sinusitis (Resolved) Vaginal delivery (Resolved) Surgical History Anesthesia complication (Resolved) History of bladder surgery (Resolved 02/2001) History of bladder suspension procedure (Resolved 06/14/13) History of colonoscopy (Resolved 01/10/15) History of hip surgery (Resolved 12/13/92) History of rectal surgery (Resolved 01/24/12) History of third molar tooth extraction (Resolved 1997) Status post appendectomy (Resolved 08/1996) Status post dilation and curettage (Resolved 10/2009) Status post hysterectomy (Resolved 05/07/10) Status post laparoscopic cholecystectomy (Resolved 03/11/06) Status post laparoscopy (Resolved 1999) Status post laparoscopy (Resolved 05/04/07) Family History Brother Age: 43 Back pain Brother Age: 42 Migraines Child Age: 16 Mental health problem Child Age: 15 Asperger syndrome Father Age: 66 Anger Mother Age: 60 Hypothyroidism Anxiety Stroke Sister Age: 43 Thyroid cancer Brain tumor Grandfather No problems noted. Grandmother Brain tumor Grandfather No problems noted. Grandmother Ovarian cancer Social History marital status: number of children: 2 household members: family lives independently: Yes caregiver/support person: Yes housing: house Smoking Status: Never smoker second hand exposure: No alcohol intake: never substance use type: does not use Family History Brother Age: 43 Back pain Brother Age: 42 Migraines Child Age: 16 Mental health problem Child Age: 15 Asperger syndrome Father Age: 66 Anger Mother Age: 60 Hypothyroidism Anxiety Stroke Sister Age: 43 Thyroid cancer Brain tumor Grandfather No problems noted. Grandmother Brain tumor Grandfather No problems noted. Grandmother Ovarian cancer Social History marital status: number of children: 2 household members: family lives independently: Yes caregiver/support person: Yes housing: house Smoking Status: Never smoker second hand exposure: No alcohol intake: never substance use type: does not use Exam <AMANDO Contreras - Last Filed: 04/02/19 21:53> Initial Vital Signs Initial Vital Signs: Vital Signs Temperature 98.6 F 04/02/19 12:13 Pulse Rate 110 H 04/02/19 12:13 Respiratory Rate 20 04/02/19 12:13 Blood Pressure 160/100 H 04/02/19 12:13 Pulse Oximetry 100 04/02/19 12:13 PHYSICAL EXAMINATION: GENERAL: Well groomed, alert, and cooperative. Answers questions promptly and appropriately. Vital signs noted. HENT: Normocephalic, atraumatic. RESPIRATORY: Normal respiratory rate, trachea midline, airway patent. No stridor, nasal flaring or accessory muscle use. MUSCULOSKELETAL: Normal gait and coordination. Equal tone and mass bilaterally. EXTREMITIES: CMS intact. Moves all extremities. SKIN: Warm, dry, soft, appropriate color for ethnicity. 6cm x 4cm area of erythema and swelling to right anterior forearm with 5 small puncture wounds. Wound bed erythematous with serosanguineous fluid from puncture wounds. Left anterior forearm has an area of 3cmx 3cm of ecchymosis with multiple 2cm superficial lesion consistent with the patient's description of claw beckham (no surrounding erythema to area, no discharge from lacerations). NEURO: Alert and Oriented X 3. Good coordination. PSYCH: Appropriate affect and mood. <Mer Powell DO - Last Filed: 04/03/19 08:42> Initial Vital Signs Initial Vital Signs: Vital Signs Temperature 98.6 F 04/02/19 12:13 Pulse Rate 110 H 04/02/19 12:13 Respiratory Rate 20 04/02/19 12:13 Blood Pressure 160/100 H 04/02/19 12:13 Pulse Oximetry 100 04/02/19 12:13 Course <AMANDO Contreras - Last Filed: 04/02/19 21:53> Course Narrative: Had extensive conversation with patient about rabies prophylaxis. Discussed that this is highly unlikely and [place] as there are very few if any reported cases in the [place]. Patient stated that her cat has had vaccinations however she is unsure if he is up-to-date. She states that he is usually in house. Also offered to call animal control to monitor animal for the next 10 days. Patient decided that she would rather monitor her animal for the next 10 days and she denies reviews prophylaxis at this time. Orders Ordered: ED Orders 04/02/19 12:54 Wound Culture and Gram Stain Stat Vital Signs - 8 hr 04/02/19 12:13 Temperature 98.6 F Pulse Rate 110 H Respiratory Rate 20 Blood Pressure 160/100 H Pulse Oximetry 100 <Mer Powell DO - Last Filed: 04/03/19 08:42> Orders Ordered: ED Orders 04/02/19 12:54 Wound Culture and Gram Stain Stat Vital Signs - 8 hr 04/02/19 12:13 Temperature 98.6 F Pulse Rate 110 H Respiratory Rate 20 Blood Pressure 160/100 H Pulse Oximetry 100 MDM - Animal Bite <AMANDO Contreras - Last Filed: 04/02/19 21:53> Medical Records Attestation: I reviewed the patient's medical records. Lab Data Attestation: I reviewed the patient's lab results. MDM Narrative Medical decision making narrative: I suspect cellulitis due to increased erythema and mechanism of injury (cat bite often becomes infected due to bacteria in the saliva). Patient was given that her indicated for cat bites. Very little suspicion for need for rabies prophylaxis as this is not probable in our county, the CT is mostly an indoor cat, and the CT was only outside for less than 24 hours and has not shown any signs of rabies. Strict return precautions given and follow-up instructions discussed. Patient educated on the signs of rabies and to return immediately if her CT shows any of the symptoms. Very little suspicion for sepsis due to lack of systemic symptoms such as fever and duration of time from injury. Discharge Plan Departure Patient Disposition: Home Clinical Impression: Cellulitis of forearm, right Animal bite of forearm Qualifiers: Encounter type: initial encounter Laterality: right Qualified Code(s): S51.851A - Open bite of right forearm, initial encounter Discharge Date/Time: 04/02/19 13:00 Interventions: ED Discharge Assessment Last Done: 04/02/19 12:57 Instructions: DI for Cat Bite Activity Restrictions/Additional Instructions: Thank you for entrusting me with your care today. As discussed, have prescribed you antibiotics to treat the infection in her wound. There is a wound culture pending, we will call you if your antibiotics need to change. I recommend you follow-up with her primary care provider in the next week for recheck. Return to the emergency department if he develops high fevers, uncontrollable vomiting, chest pain, significant swelling of the wound, or shortness of breath. Prescriptions: New amoxicillin-pot clavulanate [Augmentin] 875-125 mg tablet 1 tab PO BID 7 Days Qty: 14 RF: 0 No Action fluticasone propionate [Flovent Diskus] 100 mcg/actuation blister with device 2 inhalation INHALATION BID RF: 0 gabapentin 600 mg tablet 600 mg PO BID Qty: 180 RF: 3 amitriptyline 100 mg tablet 100 mg PO BEDTIME Qty: 90 RF: 1 Savella 100 mg tablet 100 mg PO BID Qty: 180 RF: 2 prazosin 1 mg capsule 3 mg PO BEDTIME Qty: 270 RF: 2 fluticasone furoate-vilanterol [Breo Ellipta] 200-25 mcg/dose blister with device 1 inhalation INHALATION BEDTIME Qty: 60 RF: 0 diazepam 5 mg tablet 5 mg PO TID Qty: 90 RF: 3 montelukast [Singulair] 10 mg tablet 10 mg PO BEDTIME Qty: 90 RF: 3 triamcinolone acetonide [Nasacort] 55 mcg aerosol,spray 2 spray Intranasal BEDTIME Qty: 16.9 RF: 1 baclofen 20 mg tablet 40 mg PO BEDTIME Qty: 60 RF: 1 dihydroergotamine 1 mg/mL solution 1 mg SUBCUT Q8H PRN (Reason: migraine headache) Qty: 10 RF: 11 hydroxyzine HCl 50 mg tablet 50 mg PO BID PRN (Reason: anxiety) Qty: 180 RF: 0 magnesium oxide 500 mg tablet 1,000 mg PO BEDTIME Qty: 60 RF: 3 omeprazole 40 mg capsule,delayed release(DR/EC) 40 mg PO BID Qty: 60 RF: 11 gabapentin 300 mg capsule 300 mg PO DAILY RF: 0 fluconazole [Diflucan] 100 mg tablet 100 mg PO BID RF: 0 lidocaine 5 % ointment 1 applictn TOP BID PRN (Reason: pain) Qty: 30 RF: 0 cholecalciferol (vitamin D3) [Vitamin D3] 4,000 unit capsule 2,000 unit PO BID RF: 0 umeclidinium [Incruse Ellipta] 62.5 mcg/actuation blister with device 1 inhalation INHALATION DAILY RF: 0 fremanezumab-vfrm [Ajovy] 225 mg/1.5 mL syringe 225 mg SUBCUT QMONTH Qty: 1.5 RF: 11 albuterol sulfate [ProAir HFA] 90 mcg/actuation HFA aerosol inhaler 2 puff INHALATION Q4-6H PRN (Reason: Shortness Of Breath) RF: 0 verapamil 120 mg capsule,ext rel. pellets 24 hr 120 mg PO TID RF: 0 Referrals: Rolanda Raymond MD [Primary Care Provider] - <Mer Powell DO - Last Filed: 04/03/19 08:42> Cosign ED Attending Cosignature Attestation: I was immediately available in the department for consultation. Documentation has been reviewed. I agree with assessment and plan.
== END 2019-04-02 13:00 | disposition home or self-care (01) ==
PROVIDERS: Emergency Provider Nurse Practitioner; PCP Family Medicine
DX: L03.113 Cellulitis of right upper limb (principal); S51.851A Open bite of right forearm, initial encounter; W55.01XA Bitten by cat, initial encounter
CPT/HCPCS: 87070; 87075; 87077; 87186; 87205; 99282; 99283

== ENCOUNTER 2019-04-09 10:27 | Emergency (ER) | payer MEDICARE, OTHER, MEDICAID, SELFPAY ==
[2019-04-09 10:40] VITALS: BP 179/102; PULSE 112; RESP 16; TEMP 36.6; O2SAT 97; BMI 50.9
--- NOTE | 2019-04-09 11:23 | PC.NURSE ---
pt with animal bite seen in ER a week ago, wound to right wrist, no swelling, redness, drainage, or warmth noted, pt states that pain is worse with ROM to wrist
--- NOTE | 2019-04-09 11:59 | DI.RAD.S_ITS ---
PROCEDURE: XR WRIST RT 2V INDICATIONS: r/o foreign body TECHNIQUE: 2 views of the wrist were acquired. COMPARISON: [facility], WRIST MINIMUM 3 VIEWS RIGHT, 02/18/2012, 13:19. [facility], WRIST MINIMUM 3 VIEWS RIGHT, 01/17/2012, 14:03. FINDINGS: Bones: No displaced or dislocation is evident involving the osseous structures of the right wrist. No suspicious osseous lesions are evident. No significant degenerative changes are appreciated. Soft tissues: No suspicious soft tissue calcifications. No unexpected radiopaque foreign bodies are identified. IMPRESSION: 1. No radiopaque foreign bodies are evident. 2. No acute fractures. Dictated by: Max Funk M.D. on 04/09/2019 at 11:38 Approved by: Max Funk M.D. on 04/09/2019 at 11:40
--- NOTE | 2019-04-09 12:21 | ED_ITS ---
HPI - Skin/Abscess/Foreign Bdy <Cinthia FriendAMANDO saunders - Last Filed: 04/09/19 18:02> General Chief complaint: Skin/Abscess/Foreign Body Stated complaint: Cat bite, was here last friday Time Seen by Provider: 04/09/19 11:21 Source: patient Mode of arrival: ambulatory Limitations: no limitations History of Present Illness HPI narrative: 39-year-old female with a history of anxiety, IBS, PTSD, presents emergency department complaining of cat bite on 04/01/2019 for which I seen her in the emergency department on 04/02/2019. She was given a prescription for Augmentin for which she started taking on 04/04/2019 as directed. She states she noticed a small red lump forming a few days ago and today it is harder than before. She denies any fevers, chills, chest pain, shortness of breath, severe wrist pain, limited range of motion, nausea, vomiting, diarrhea, or syncope. She states the cat continues to exhibit normal behavior and there is no concern for rabies. MD complaint: laceration Onset (ago): minute(s) Tetanus up to date: yes Related Data Home Medications Medication Instructions Recorded Confirmed albuterol sulfate HFA 90 2 puff INHALATION Q4-6H PRN 03/31/18 01/11/19 mcg/actuation aerosol inhaler verapamil ER 120 mg 24 hr 120 mg PO TID 03/31/18 01/11/19 capsule,extended release fluticasone propionate 100 2 inhalation INHALATION BID each 05/01/18 01/11/19 mcg/actuation blister powder for inhalation cholecalciferol (vitamin D3) 4,000 2,000 unit PO BID cap 10/08/18 01/11/19 unit capsule umeclidinium 62.5 mcg/actuation 1 inhalation INHALATION DAILY 10/08/18 01/11/19 blister powder for inhalation gabapentin 300 mg capsule 300 mg PO DAILY 11/06/18 01/11/19 fluconazole 100 mg tablet 100 mg PO BID tab 02/24/19 02/24/19 Previous Rx's Medication Instructions Recorded fluticasone furoate 200 1 inhalation INHALATION BEDTIME 05/06/18 mcg-vilanterol 25 mcg/dose #60 each inhalation powder omeprazole 40 mg capsule,delayed 40 mg PO BID #60 ecc 05/26/18 release gabapentin 600 mg tablet 600 mg PO BID #180 tab 10/06/18 fremanezumab-vfrm 225 mg/1.5 mL 225 mg SUBCUT QMONTH #1.5 ml 10/12/18 subcutaneous syringe diazepam 5 mg tablet 5 mg PO TID #90 tab 11/23/18 montelukast 10 mg tablet 10 mg PO BEDTIME #90 tab 12/31/18 amitriptyline 100 mg tablet 100 mg PO BEDTIME #90 tab 01/11/19 milnacipran 100 mg tablet 100 mg PO BID #180 tab 01/11/19 prazosin 1 mg capsule 3 mg PO BEDTIME #270 cap 01/11/19 baclofen 20 mg tablet 40 mg PO BEDTIME #60 tab 02/16/19 triamcinolone acetonide 55 mcg 2 spray INTRANASAL BEDTIME #16.9 ml 02/16/19 nasal spray aerosol dihydroergotamine 1 mg/mL 1 mg SUBCUT Q8H PRN #10 amp 02/18/19 injection solution hydroxyzine HCl 50 mg tablet 50 mg PO BID PRN #180 tab 02/19/19 lidocaine 5 % topical ointment 1 applictn TOP BID PRN #30 gram 02/24/19 magnesium oxide 500 mg tablet 1,000 mg PO BEDTIME #60 tab 03/24/19 amoxicillin-pot clavulanate 1 tab PO BID 7 Days #14 tab 04/09/19 [Augmentin] Allergies Allergy/AdvReac Type Severity Reaction Status Date / Time bupropion [BUPROPION] Allergy Mild facial rash Verified 04/09/19 10:44 hydrocodone [HYDROCODONE] Allergy Mild rash Verified 04/09/19 10:44 iodine [IODINE] Allergy Mild edema Verified 04/09/19 10:44 Review of Systems <AMANDO Contreras - Last Filed: 04/09/19 18:02> Review of Systems REVIEW OF SYSTEMS: GENERAL: Denies fever or chills. HENT: Denies head trauma. EYE: Denies double vision or vision loss. CARDIOVASCULAR: Denies syncope. MUSCULOSKELETAL: Denies weakness, or deformities. INTEGUMENTARY: Complains of cat bite to right wrist, see HPI. NEURO: Denies numbness or tingling. PFSH <AMANDO Contreras - Last Filed: 04/09/19 18:02> Medical History Asthma (Chronic) Agoraphobia (Chronic) Anxiety (Chronic) Asthma with allergic rhinitis (Chronic) Bursitis of left hip (Chronic) Chronic back pain (Chronic) Chronic cough (Chronic) Chronic headaches (Chronic) Corneal pigmentation of both eyes (Chronic) Depression (Chronic) Fibromyalgia (Chronic) Frequent UTI (Chronic) GERD (gastroesophageal reflux disease) (Chronic) GI bleeding (Chronic) Gastric ulcer (Chronic) Gastroparesis (Chronic) Hayfever (Chronic) Hearing loss (Chronic) Hemorrhoids (Chronic) IBS (irritable bowel syndrome) (Chronic) Interstitial cystitis (Chronic) MRSA infection (Chronic) Migraines (Chronic) PTSD (post-traumatic stress disorder) (Chronic) PUD (peptic ulcer disease) (Chronic) Panic attacks (Chronic) Partial blindness (Chronic) Rheumatoid arthritis (Chronic) Scoliosis (Chronic) Tachycardia (Chronic) Tinnitus (Chronic) Vertigo (Chronic) Abnormal Pap smear of cervix (Resolved) Anal fissure (Resolved 01/24/12) Anemia (Resolved) BRCA negative (Resolved) Endometriosis (Resolved) History of endoscopy (Resolved 05/04/07) History of endoscopy (Resolved 01/10/15) History of heavy periods (Resolved) History of recurrent ear infection (Resolved) History of tilt table evaluation (Resolved 05/02/15) Irregular periods/menstrual cycles (Resolved) Kidney infection (Resolved 2002) Ovarian cyst (Resolved) Painful menstrual periods (Resolved) Recurrent sinusitis (Resolved) Vaginal delivery (Resolved) Surgical History Anesthesia complication (Resolved) History of bladder surgery (Resolved 02/2001) History of bladder suspension procedure (Resolved 06/14/13) History of colonoscopy (Resolved 01/10/15) History of hip surgery (Resolved 12/13/92) History of rectal surgery (Resolved 01/24/12) History of third molar tooth extraction (Resolved 1997) Status post appendectomy (Resolved 08/1996) Status post dilation and curettage (Resolved 10/2009) Status post hysterectomy (Resolved 05/07/10) Status post laparoscopic cholecystectomy (Resolved 03/11/06) Status post laparoscopy (Resolved 1999) Status post laparoscopy (Resolved 05/04/07) Family History Brother Age: 43 Back pain Brother Age: 42 Migraines Child Age: 16 Mental health problem Child Age: 15 Asperger syndrome Father Age: 66 Anger Mother Age: 60 Hypothyroidism Anxiety Stroke Sister Age: 43 Thyroid cancer Brain tumor Grandfather No problems noted. Grandmother Brain tumor Grandfather No problems noted. Grandmother Ovarian cancer Social History marital status: number of children: 2 household members: family lives independently: Yes caregiver/support person: Yes housing: house Smoking Status: Never smoker second hand exposure: No alcohol intake: never substance use type: does not use Family History Brother Age: 43 Back pain Brother Age: 42 Migraines Child Age: 16 Mental health problem Child Age: 15 Asperger syndrome Father Age: 66 Anger Mother Age: 60 Hypothyroidism Anxiety Stroke Sister Age: 43 Thyroid cancer Brain tumor Grandfather No problems noted. Grandmother Brain tumor Grandfather No problems noted. Grandmother Ovarian cancer Social History marital status: number of children: 2 household members: family lives independently: Yes caregiver/support person: Yes housing: house Smoking Status: Never smoker second hand exposure: No alcohol intake: never substance use type: does not use Exam <AMANDO Contreras - Last Filed: 04/09/19 18:02> Initial Vital Signs Initial Vital Signs: Vital Signs Temperature 97.9 F 04/09/19 10:40 Pulse Rate 112 H 04/09/19 10:40 Respiratory Rate 16 04/09/19 10:40 Blood Pressure 179/102 H 04/09/19 10:40 Pulse Oximetry 97 04/09/19 10:40 PHYSICAL EXAMINATION: GENERAL:Alert, and cooperative. Answers questions promptly and appropriately. Vital signs noted. HENT: Normocephalic, atraumatic. RESPIRATORY: Normal respiratory rate, trachea midline, airway patent. No stridor, nasal flaring or accessory muscle use. MUSCULOSKELETAL: Normal gait and coordination. Equal tone and mass bilaterally. EXTREMITIES: CMS intact. Moves all extremities. Full range of motion wrist, fingers, and elbows bilaterally. SKIN: Warm, dry, soft, appropriate color for ethnicity. 3cm area of induration to radial aspect of right wrist. Small amount of surrounding erythema, upon exploration of the area serosanguineous discharge was expressed. No abscess formation. NEURO: Alert and Oriented X 3. Good coordination. PSYCH: Appropriate affect and mood. <Mer Powell DO - Last Filed: 04/10/19 07:06> Initial Vital Signs Initial Vital Signs: Vital Signs Temperature 97.9 F 04/09/19 10:40 Pulse Rate 112 H 04/09/19 10:40 Respiratory Rate 16 04/09/19 10:40 Blood Pressure 179/102 H 04/09/19 10:40 Pulse Oximetry 97 04/09/19 10:40 Procedures <AMANDO Cotnreras - Last Filed: 04/09/19 18:02> Nerve Block Nerve Block 1: Time out performed: Yes Local Anesthetic: lidocaine 1% and with bicarb Amount of anesthesia used (mL): 4 Side: right Nerve Blocks: other Procedure Successful: Yes Patient Tolerated Procedure: Well Complications: none Course <AMANDO Contreras - Last Filed: 04/09/19 18:02> Course Narrative: Area was numbed with lidocaine, small scab was explored. Only serosanguineous drainage was expelled. Area was washed and dressed with gauze. Orders Ordered: Discontinued Medications Lidocaine/Sodium Bicarbonate (Buffered Lidocaine 10 Ml Syr) 10 ml INJ NOW ONE Stop: 04/09/19 12:54 Vital Signs - 8 hr 04/09/19 10:40 04/09/19 13:24 Temperature 97.9 F 98.9 F Pulse Rate 112 H 82 Respiratory Rate 16 16 Blood Pressure 179/102 H Pulse Oximetry 97 99 <Mer Powell DO - Last Filed: 04/10/19 07:06> Orders Ordered: Discontinued Medications Lidocaine/Sodium Bicarbonate (Buffered Lidocaine 10 Ml Syr) 10 ml INJ NOW ONE Stop: 04/09/19 12:54 Vital Signs - 8 hr 04/09/19 10:40 04/09/19 13:24 Temperature 97.9 F 98.9 F Pulse Rate 112 H 82 Respiratory Rate 16 16 Blood Pressure 179/102 H Pulse Oximetry 97 99 MDM - Skin/Abscess/Foreign Bdy <AMANDO Contreras - Last Filed: 04/09/19 18:02> Medical Records Attestation: I reviewed the patient's medical records. Lab Data Attestation: I reviewed the patient's lab results. Imaging Data R Wrist XR: Radiologist's impression: [address] [address] XRay Report Signed Patient: Dorinda Harper [facility]#: [id number] : 1980Acct:[id number] Age/Sex: 39 / FDate of Service: 04/09/19 Loc: ED Accession Number: [id number] Procedure: XR wrist RT 2V Ordering Provider: Cinthia Arceo PROCEDURE: XR WRIST RT 2V INDICATIONS: r/o foreign body TECHNIQUE: 2 views of the wrist were acquired. COMPARISON: [facility], WRIST MINIMUM 3 VIEWS RIGHT, 02/18/2012, 13:19. [facility], WRIST MINIMUM 3 VIEWS RIGHT, 01/17/2012, 14:03. FINDINGS: Bones: No displaced or dislocation is evident involving the osseous structures of the right wrist. No suspicious osseous lesions are evident. No significant degenerative changes are appreciated. Soft tissues: No suspicious soft tissue calcifications. No unexpected radiopaque foreign bodies are identified. IMPRESSION: 1. No radiopaque foreign bodies are evident. 2. No acute fractures. Dictated by: Max Funk M.D. on 04/09/2019 at 11:38 Approved by: Max Funk M.D. on 04/09/2019 at 11:40 MDM Narrative Medical decision making narrative: Differential includes cellulitis versus normal wound healing. Due to the surrounding erythema and have extended patient's antibiotics. Less likely abscess due to serosanguineous and not purulence fluid that was expelled. Instructed patient to follow up with her primary care provider in the next week to monitor wound healing. Discharge Plan Departure Patient Disposition: Home Clinical Impression: Cat bite Qualifiers: Encounter type: initial encounter Qualified Code(s): W55.01XA - Bitten by cat, initial encounter Cellulitis Qualifiers: Site of cellulitis: extremity Site of cellulitis of extremity: lower extremity Laterality: right Qualified Code(s): L03.115 - Cellulitis of right lower limb Discharge Date/Time: 04/09/19 13:26 Interventions: ED Discharge Assessment Last Done: 04/09/19 13:24 Instructions: DI for Cellulitis -- Adult Activity Restrictions/Additional Instructions: Thank you for entrusting me with your care today. As discussed, no foreign bodies were seen on your x-ray. There is no pus she drainage from your wound. I extended your antibiotics, please continue to take these as her wound is healing. Follow up with your primary care provider in the next week for recheck. Return to the emergency department if you develop chest pain, shortness of breath, high fevers, syncope, or uncontrollable vomiting . Prescriptions: New amoxicillin-pot clavulanate [Augmentin] 875-125 mg tablet 1 tab PO BID 7 Days Qty: 14 RF: 0 No Action fluticasone propionate [Flovent Diskus] 100 mcg/actuation blister with device 2 inhalation INHALATION BID RF: 0 gabapentin 600 mg tablet 600 mg PO BID Qty: 180 RF: 3 amitriptyline 100 mg tablet 100 mg PO BEDTIME Qty: 90 RF: 1 Savella 100 mg tablet 100 mg PO BID Qty: 180 RF: 2 prazosin 1 mg capsule 3 mg PO BEDTIME Qty: 270 RF: 2 fluticasone furoate-vilanterol [Breo Ellipta] 200-25 mcg/dose blister with device 1 inhalation INHALATION BEDTIME Qty: 60 RF: 0 diazepam 5 mg tablet 5 mg PO TID Qty: 90 RF: 3 montelukast [Singulair] 10 mg tablet 10 mg PO BEDTIME Qty: 90 RF: 3 triamcinolone acetonide [Nasacort] 55 mcg aerosol,spray 2 spray Intranasal BEDTIME Qty: 16.9 RF: 1 baclofen 20 mg tablet 40 mg PO BEDTIME Qty: 60 RF: 1 dihydroergotamine 1 mg/mL solution 1 mg SUBCUT Q8H PRN (Reason: migraine headache) Qty: 10 RF: 11 hydroxyzine HCl 50 mg tablet 50 mg PO BID PRN (Reason: anxiety) Qty: 180 RF: 0 magnesium oxide 500 mg tablet 1,000 mg PO BEDTIME Qty: 60 RF: 3 omeprazole 40 mg capsule,delayed release(DR/EC) 40 mg PO BID Qty: 60 RF: 11 gabapentin 300 mg capsule 300 mg PO DAILY RF: 0 fluconazole [Diflucan] 100 mg tablet 100 mg PO BID RF: 0 lidocaine 5 % ointment 1 applictn TOP BID PRN (Reason: pain) Qty: 30 RF: 0 cholecalciferol (vitamin D3) [Vitamin D3] 4,000 unit capsule 2,000 unit PO BID RF: 0 umeclidinium [Incruse Ellipta] 62.5 mcg/actuation blister with device 1 inhalation INHALATION DAILY RF: 0 fremanezumab-vfrm [Ajovy] 225 mg/1.5 mL syringe 225 mg SUBCUT QMONTH Qty: 1.5 RF: 11 albuterol sulfate [ProAir HFA] 90 mcg/actuation HFA aerosol inhaler 2 puff INHALATION Q4-6H PRN (Reason: Shortness Of Breath) RF: 0 verapamil 120 mg capsule,ext rel. pellets 24 hr 120 mg PO TID RF: 0 Referrals: Rolanda Raymond MD [Primary Care Provider] - <Mer Powell DO - Last Filed: 04/10/19 07:06> Cosign ED Attending Jessicaature Attestation: I was immediately available in the department for consultation. Documentation has been reviewed. I agree with assessment and plan.
[2019-04-09 13:24] VITALS: PULSE 82; RESP 16; TEMP 37.2; O2SAT 99
== END 2019-04-09 13:26 | disposition home or self-care (01) ==
PROVIDERS: Emergency Provider Nurse Practitioner; PCP Family Medicine
DX: S51.851D Open bite of right forearm, subsequent encounter (principal); W55.01XD Bitten by cat, subsequent encounter; L03.115 Cellulitis of right lower limb
CPT/HCPCS: 10060; 64450; 73100; 99282; 99283

== ENCOUNTER → 2019-04-15 10:05 | Outpatient (CLI) | payer MEDICARE, MEDICAID, OTHER, SELFPAY | PROVIDERS: PCP Family Medicine; Visit Provider Family Medicine | DX: R22.31 Localized swelling, mass and lump, right upper limb (principal) | CPT/HCPCS: 87070; 87205 ==

== ENCOUNTER → 2019-05-12 07:48 | Outpatient (CLI) | payer MEDICARE, SELFPAY ==
[2019-05-12 09:13] LABS: Thyroid Stimulating Hormone 3.18 uIU/mL (0.47-4.68)
[2019-05-12 09:14] LABS: Cortisol AM (Before 10AM) 3.09 ug/dL (4.46-22.7)
== END ==
PROVIDERS: PCP Family Medicine; Visit Provider Physician Assistant Medical
DX: R53.83 Other fatigue (principal)
CPT/HCPCS: 36415; 82533; 84443

== ENCOUNTER → 2019-05-19 08:13 | Outpatient (CLI) | payer MEDICARE, MEDICAID, SELFPAY ==
[2019-05-19 11:15] LABS: Cortisol AM (Before 10AM) 3.94 ug/dL (4.46-22.7)
== END ==
PROVIDERS: PCP Family Medicine; Visit Provider Physician Assistant Medical
DX: E27.8 Other specified disorders of adrenal gland (principal)
CPT/HCPCS: 36415; 82533

== ENCOUNTER 2019-06-23 19:37 | Emergency (ER) | payer MEDICARE, MEDICAID, SELFPAY ==
--- NOTE | 2019-06-23 19:37 | ED_ITS ---
HPI - Chest Pain General Chief Complaint: Chest Pain Stated Complaint: Chest pain Time Seen by Provider: 06/23/19 19:37 Source: patient and EMS Mode of arrival: EMS Limitations: no limitations History of Present Illness HPI narrative: 39-year-old female nonsmoker with history of asthma and severe reflux presents with sudden onset severe epigastric pain and rapid shallow breathing with numbness and tingling in her finger tips. She states this started soon after having a rather stressful scenario involved with her daughter. She denies any radiation of the pain. She denies associated symptoms such as dizziness or lightheadedness but does admit to some shortness of breath that had resolved with some coaching from EMS. She denies fever chills nor recent injury. She states this feels quite similar to prior episodes of reflux MD complaint: chest pain Onset (ago): minute(s) Duration: improved Onset: during rest Pain location: substernal and epigastric Severity: mild Quality: sharp Pain radiation: none Relieving factors: nothing Exacerbating factors: nothing Associated symptoms: nausea Treatments prior to arrival chest pain: none Related Data Home Medications Medication Instructions Recorded Confirmed albuterol sulfate 90 mcg/actuation 2 puff INHALATION Q4-6H PRN 03/31/18 06/23/19 aerosol inhaler fluticasone propionate 100 2 inhalation INHALATION BID each 05/01/18 06/23/19 mcg/actuation blister powder for inhalation cholecalciferol (vitamin D3) 4,000 2,000 unit PO BID cap 10/08/18 06/23/19 unit capsule umeclidinium 62.5 mcg/actuation 1 inhalation INHALATION DAILY 10/08/18 06/23/19 blister powder for inhalation gabapentin 300 mg capsule 300 mg PO DAILY 11/06/18 06/23/19 dupilumab 300 mg/2 mL subcutaneous 300 mg SUBCUT Q2W 04/15/19 06/23/19 syringe methylprednisolone 4 mg tablet 4 mg PO DAILY 05/21/19 06/23/19 nystatin 100,000 unit/mL oral 5 ml PO QID ml 05/21/19 06/23/19 suspension Previous Rx's Medication Instructions Recorded fluticasone furoate 200 1 inhalation INHALATION BEDTIME 05/06/18 mcg-vilanterol 25 mcg/dose #60 each inhalation powder gabapentin 600 mg tablet 600 mg PO BID #180 tab 10/06/18 fremanezumab-vfrm 225 mg/1.5 mL 225 mg SUBCUT QMONTH #1.5 ml 10/12/18 subcutaneous syringe montelukast 10 mg tablet 10 mg PO BEDTIME #90 tab 12/31/18 prazosin 1 mg capsule 3 mg PO BEDTIME #270 cap 01/11/19 triamcinolone acetonide 55 mcg 2 spray INTRANASAL BEDTIME #16.9 ml 02/16/19 nasal spray aerosol dihydroergotamine 1 mg/mL 1 mg SUBCUT Q8H PRN #10 amp 02/18/19 injection solution lidocaine 5 % topical ointment 1 applictn TOP BID PRN #30 gram 02/24/19 magnesium oxide 500 mg tablet 1,000 mg PO BEDTIME #60 tab 03/24/19 diazepam 5 mg tablet 5 mg PO TID #90 tab 04/15/19 lisinopril 20 mg tablet 20 mg PO DAILY #90 tab 04/15/19 triamcinolone acetonide 0.1 % 1 applictn TOP BID #15 gram 05/06/19 topical cream hydroxyzine HCl 50 mg tablet 50 mg PO BID PRN #180 tab 05/14/19 omeprazole 40 mg capsule,delayed 40 mg PO BID #60 ecc 06/07/19 release pilocarpine HCl 4 % eye drops See Rx Instructions .ROUTE 06/08/19 .COMPLEX #15 ml vortioxetine 20 mg tablet 20 mg PO DAILY #90 tab 06/08/19 baclofen 20 mg tablet See Rx Instructions .ROUTE 06/15/19 .COMPLEX #60 tablet amoxicillin 875 mg-potassium 1 tab PO BID #28 tab 06/23/19 clavulanate 125 mg tablet ondansetron HCl 4 mg tablet 4 mg PO Q8H PRN #30 tab 06/23/19 Allergies Allergy/AdvReac Type Severity Reaction Status Date / Time bupropion [BUPROPION] Allergy Mild facial rash Verified 06/23/19 12:17 hydrocodone [HYDROCODONE] Allergy Mild rash Verified 06/23/19 12:17 iodine [IODINE] Allergy Mild edema Verified 06/23/19 12:17 Review of Systems Constitutional Constitutional: Denies chills, Denies fatigue, Denies fever(s), Denies frequent falls, Denies lethargy and Denies weakness Eyes Eyes: Denies change in vision, Denies eye discharge, Denies irritation and Denies loss of vision ENT Ears, Nose, Mouth, and Throat: Denies change in voice, Denies dizziness, Denies neck pain, Denies sore throat and Denies throat swelling Cardiovascular Cardiovascular: Reports chest pain, Denies irregular heart rhythm, Denies lightheadedness, Denies palpitations, Denies dyspnea, Denies dyspnea on exertion and Denies orthopnea Respiratory Respiratory: Denies cough, Denies dyspnea, Denies dyspnea on exertion and Denies wheezing Gastrointestinal Gastrointestinal: Denies abdominal pain, Denies change in bowel habits, Denies diarrhea, Denies nausea and Denies vomiting Genitourinary Genitourinary: Denies hematuria, Denies flank pain, Denies urinary incontinence and Denies urinary urgency Musculoskeletal Musculoskeletal: Denies back pain, Denies muscle weakness, Denies neck pain, Denies numbness and Denies tingling Integumentary/Breasts Skin/Breast: Denies pruritus, Denies erythema, Denies rash and Denies wounds Neurologic Neurologic: Denies behavioral changes, Denies confusion, Denies dizziness, Denies frequent falls, Denies loss of vision, Denies numbness, Denies tingling and Denies weakness Psychiatric Psychiatric: Denies anxiety, Denies behavioral changes, Denies confusion, Denies depression, Denies homicidal ideation and Denies suicidal ideation Endocrine Endocrine: Denies fatigue, Denies flushing and Denies palpitations Hematologic/Lymphatic Hematologic/Lymphatic: Denies easy bruising Allergic/Immunologic Allergic/Immunologic: Denies urticaria, Denies throat swelling and Denies wheezing Patient History Medical History Abnormal Pap smear of cervix (Resolved) Agoraphobia (Chronic) Anal fissure (Resolved 01/24/12) Anemia (Resolved) Anxiety (Chronic) Asthma (Chronic) Asthma with allergic rhinitis (Chronic) BRCA negative (Resolved) Bursitis of left hip (Chronic) Chronic back pain (Chronic) Chronic cough (Chronic) Chronic headaches (Chronic) Corneal pigmentation of both eyes (Chronic) Depression (Chronic) Endometriosis (Resolved) Essential (primary) hypertension (Acute) Fibromyalgia (Chronic) Frequent UTI (Chronic) Gastric ulcer (Chronic) Gastroparesis (Chronic) GERD (gastroesophageal reflux disease) (Chronic) GI bleeding (Chronic) Hayfever (Chronic) Hearing loss (Chronic) Hemorrhoids (Chronic) History of heavy periods (Resolved) History of recurrent ear infection (Resolved) History of tilt table evaluation (Resolved 05/02/15) IBS (irritable bowel syndrome) (Chronic) Interstitial cystitis (Chronic) Irregular periods/menstrual cycles (Resolved) Kidney infection (Resolved 2002) Migraines (Chronic) MRSA infection (Chronic) Ovarian cyst (Resolved) Painful menstrual periods (Resolved) Panic attacks (Chronic) Partial blindness (Chronic) PTSD (post-traumatic stress disorder) (Chronic) PUD (peptic ulcer disease) (Chronic) Recurrent sinusitis (Resolved) Rheumatoid arthritis (Chronic) Scoliosis (Chronic) Tachycardia (Chronic) Tinnitus (Chronic) Vaginal delivery (Resolved) Vertigo (Chronic) Surgical History Anesthesia complication (Resolved) History of bladder surgery (Resolved 02/2001) History of bladder suspension procedure (Resolved 06/14/13) History of colonoscopy (Resolved 01/10/15) History of endoscopy (Resolved 05/04/07) History of endoscopy (Resolved 01/10/15) History of hip surgery (Resolved 12/13/92) History of rectal surgery (Resolved 01/24/12) History of third molar tooth extraction (Resolved 1997) Status post appendectomy (Resolved 08/1996) Status post dilation and curettage (Resolved 10/2009) Status post hysterectomy (Resolved 05/07/10) Status post laparoscopic cholecystectomy (Resolved 03/11/06) Status post laparoscopy (Resolved 1999) Status post laparoscopy (Resolved 05/04/07) Family History Brother Age: 43 Back pain Brother Age: 42 Migraines Child Age: 16 Mental health problem Child Age: 15 Asperger syndrome Father Age: 66 Anger Mother Age: 60 Hypothyroidism Anxiety Stroke Sister Age: 43 Thyroid cancer Brain tumor Grandfather No problems noted. Grandmother Brain tumor Grandfather No problems noted. Grandmother Ovarian cancer Social History marital status: number of children: 2 household members: family lives independently: Yes caregiver/support person: Yes housing: house Smoking Status: Never smoker second hand exposure: No alcohol intake: never substance use type: does not use Family History Brother Age: 43 Back pain Brother Age: 42 Migraines Child Age: 16 Mental health problem Child Age: 15 Asperger syndrome Father Age: 66 Anger Mother Age: 60 Hypothyroidism Anxiety Stroke Sister Age: 43 Thyroid cancer Brain tumor Grandfather No problems noted. Grandmother Brain tumor Grandfather No problems noted. Grandmother Ovarian cancer Social History marital status: number of children: 2 household members: family lives independently: Yes caregiver/support person: Yes housing: house Smoking Status: Never smoker second hand exposure: No alcohol intake: never substance use type: does not use Exam Narrative Exam Narrative: GENERAL: [39] year old patient appears stated age. Morbidly obese, anxious HEAD: Atraumatic. Normocephalic. EYES: Pupils equal round and reactive. Extraocular motions intact. No scleral icterus. No injection or drainage. ENT: Nose without bleeding, purulent drainage. Throat without erythema, tonsillar hypertrophy or exudate. Airway patent. NECK: Trachea midline. Non tender CARDIOVASCULAR: Regular rate and rhythm without murmurs, gallops, or rubs. RESPIRATORY: Clear to auscultation. Breath sounds equal bilaterally. No wheezes, rales, or rhonchi. GASTROINTESTINAL: Abdomen soft, tender epigastric, nondistended. EXTREMITIES: No edema or joint tenderness. BACK: Nontender without deformity or crepitance. No flank tenderness. NEURO: AOx3. SKIN: No rash or erythema of visible areas Initial Vital Signs Initial Vital Signs: Vital Signs Temperature 97.0 F L 06/23/19 19:44 Pulse Rate 128 H 06/23/19 19:44 Respiratory Rate 20 06/23/19 19:44 Blood Pressure 134/75 06/23/19 19:44 Pulse Oximetry 97 06/23/19 19:44 Course Orders Ordered: ED Orders 06/23/19 19:38 XR chest 1V Stat EKG-12 Lead Stat 06/23/19 19:48 Basic Metabolic Panel Stat Complete Blood Count AUTO DIFF Stat D Dimer Stat Troponin & CK Cardiac Panel Stat Discontinued Medications Al Hydrox/Mg Hydrox/Simethicone 20 ml/ Lidocaine HCl 15 ml 0 ml PO NOW ONE Stop: 06/23/19 19:38 Last Admin: 06/23/19 19:48 Dose: 35 ml Documented by: SHRADDHA Sodium Chloride (Normal Saline 0.9%) 1,000 mls @ 1,000 mls/hr IV BOLUS ONE Stop: 06/23/19 22:36 Last Infusion: 06/23/19 23:01 Dose: 1,000 mls/hr Documented by: Admin: 06/23/19 21:44 Dose: 1,000 mls/hr Documented by: SHRADDHA Ondansetron HCl (Zofran Odt) 4 mg SL NOW ONE Stop: 06/23/19 20:53 Last Admin: 06/23/19 20:53 Dose: 4 mg Documented by: SHRADDHA Pantoprazole Sodium (Protonix) 40 mg IV NOW ONE Stop: 06/23/19 19:38 Last Admin: 06/23/19 19:49 Dose: 40 mg Documented by: SHRADDHA Vital Signs Vital signs: Vital Signs - 8 hr 06/23/19 19:44 06/23/19 20:06 06/23/19 21:00 Temperature 97.0 F L Pulse Rate 128 H 126 H 122 H Respiratory Rate 20 24 17 Blood Pressure 134/75 Blood Pressure [Left Arm] 149/68 H 118/71 Pulse Oximetry 97 93 95 06/23/19 21:30 06/23/19 22:00 06/23/19 22:31 Temperature Pulse Rate 120 H 118 H 118 H Respiratory Rate 14 16 18 Blood Pressure Blood Pressure [Left Arm] 137/66 129/89 Pulse Oximetry 94 98 MDM - Chest Pain Lab Data Result diagrams: 06/23/19 19:48 06/23/19 19:48 Labs: Lab Results 06/23/19 06/23/19 06/23/19 Range/Units 19:48 19:48 19:48 WBC 16.9 H (4.5-11.0) X10^3/uL RBC 4.96 (4.0-5.2) X10^6/uL Hgb 13.5 (12.0-16.0) g/dL Hct 41.8 (36-46) % MCV 84.3 (80-100) fL MCH 27.2 (26-34) PG MCHC 32.3 (30-36) % RDW 16.1 H (11.6-14.8) % Plt Count 424 H (150-400) X10^3/uL Neut % (Auto) 69.7 (50-75) % Lymph % (Auto) 21.8 L (25-40) % [place] % (Auto) 5.9 (3-14) % Eos % (Auto) 2.0 (2-4) % Baso % (Auto) 0.6 (0-2) % Neut # (Auto) 51008 H (9881-4469) /uL Lymph # (Auto) 3700 (6522-4435) /uL [place] # (Auto) 1000 H (0-900) /uL Eos # (Auto) 300 (0-450) /uL Baso # (Auto) 100 (0-100) /uL D-Dimer < 200 (<230) ng/mL Sodium 137 (137-145) mmol/L Potassium 3.3 L (3.4-5.1) mmol/L Chloride 97 L (98-107) mmol/L Carbon Dioxide 30 (22-32) mmol/L BUN 10 (7-17) mg/dL Creatinine 0.60 (0.52-1.04) mg/dL Estimated GFR > 60.0 (>60) mL/min BUN/Creatinine Ratio 16.7 (6-22) Glucose 143 H (70-100) mg/dL Calcium 9.2 (8.4-10.2) mg/dL Total Creatine Kinase 51 (30-135) U/L CK-MB (CK-2) TNP CK-MB (CK-2) Rel Index TNP Troponin I < 0.012 (0.01-0.034) ng/mL [facility] Narrative Medical decision making narrative: Multiple etiologies for patient's symptoms considered including: [Pulmonary embolism versus cardiac ischemia versus anxiety versus GERD versus other Multiple causes of chest pain considered including [place], PE, pneumothorax, pneumonia, aortic dissection, and pleurisy. Patient reports no radiation, no diaphoresis, no provocation with exertion, and no vomiting] Patient's symptoms improved or duration of stay with above-stated therapies. Findings and discharge diagnosis discussed with patient/family followed by verbalization of understanding Return precautions discussed with patient/family whom verbalize understanding. Discharge Plan Departure Patient Disposition: Home Clinical Impression: Atypical chest pain Discharge Date/Time: 06/23/19 23:02 Instructions: DI for Atypical Chest Pain Activity Restrictions/Additional Instructions: *You have been diagnosed with [atypical chest pain, likely reflux] *What to do: * continue to take medications as directed *Follow up with your primary care provider in 2-3 days, call for an appointment. Let them know you were seen in the Emergency Department and that we ask that you be seen in follow up *Return to ER if you should have any new, worsening or concerning symptoms Prescriptions: No Action triamcinolone acetonide 0.1 % cream 1 applictn TOP BID Qty: 15 RF: 0 Dupixent 300 mg/2 mL syringe 300 mg SUBCUT Q2W RF: 0 lisinopril 20 mg tablet 20 mg PO DAILY Qty: 90 RF: 3 diazepam 5 mg tablet 5 mg PO TID Qty: 90 RF: 3 ondansetron HCl 4 mg tablet 4 mg PO Q8H PRN (Reason: nausea and vomiting) Qty: 30 RF: 0 amoxicillin-pot clavulanate 875-125 mg tablet 1 tab PO BID Qty: 28 RF: 0 fluticasone propionate [Flovent Diskus] 100 mcg/actuation blister with device 2 inhalation INHALATION BID RF: 0 gabapentin 600 mg tablet 600 mg PO BID Qty: 180 RF: 3 nystatin 100,000 unit/mL suspension 5 ml PO QID RF: 0 methylprednisolone 4 mg tablet 4 mg PO DAILY RF: 0 pilocarpine HCl 4 % drops See Rx Instructions .ROUTE .COMPLEX Qty: 15 RF: 2 Trintellix 20 mg tablet 20 mg PO DAILY Qty: 90 RF: 1 prazosin 1 mg capsule 3 mg PO BEDTIME Qty: 270 RF: 2 fluticasone furoate-vilanterol [Breo Ellipta] 200-25 mcg/dose blister with device 1 inhalation INHALATION BEDTIME Qty: 60 RF: 0 montelukast [Singulair] 10 mg tablet 10 mg PO BEDTIME Qty: 90 RF: 3 triamcinolone acetonide [Nasacort] 55 mcg aerosol,spray 2 spray Intranasal BEDTIME Qty: 16.9 RF: 1 dihydroergotamine 1 mg/mL solution 1 mg SUBCUT Q8H PRN (Reason: migraine headache) Qty: 10 RF: 11 magnesium oxide 500 mg tablet 1,000 mg PO BEDTIME Qty: 60 RF: 3 hydroxyzine HCl 50 mg tablet 50 mg PO BID PRN (Reason: anxiety) Qty: 180 RF: 1 omeprazole 40 mg capsule,delayed release(DR/EC) 40 mg PO BID Qty: 60 RF: 11 baclofen 20 mg tablet See Rx Instructions .ROUTE .COMPLEX Qty: 60 RF: 1 gabapentin 300 mg capsule 300 mg PO DAILY RF: 0 lidocaine 5 % ointment 1 applictn TOP BID PRN (Reason: pain) Qty: 30 RF: 0 cholecalciferol (vitamin D3) [Vitamin D3] 4,000 unit capsule 2,000 unit PO BID RF: 0 umeclidinium [Incruse Ellipta] 62.5 mcg/actuation blister with device 1 inhalation INHALATION DAILY RF: 0 fremanezumab-vfrm [Ajovy] 225 mg/1.5 mL syringe 225 mg SUBCUT QMONTH Qty: 1.5 RF: 11 albuterol sulfate [ProAir HFA] 90 mcg/actuation HFA aerosol inhaler 2 puff INHALATION Q4-6H PRN (Reason: Shortness Of Breath) RF: 0 Referrals: Rolanda Raymond MD [Primary Care Provider] -
--- NOTE | 2019-06-23 19:38 | DI.RAD.S_ITS ---
PROCEDURE: XR CHEST 1V INDICATIONS: chest pain TECHNIQUE: One view of the chest was acquired. COMPARISON: [facility], CR, XR CHEST 2V, 04/06/2018, 15:37. FINDINGS: Surgical changes and devices: None. Lungs and pleura: Lungs are clear. No pleural effusions or pneumothorax. Mediastinum: Mediastinal contours appear normal. Heart size is markedly enlarged, unchanged from prior study. Bones and chest wall: No suspicious bony lesions. Overlying soft tissues appear unremarkable. IMPRESSION: Marked cardiomegaly. No acute pulmonary pathology. Dictated by: Grabiel Ibarra M.D. on 06/23/2019 at 20:06 Approved by: Grabiel Ibarra M.D. on 06/23/2019 at 20:06
[2019-06-23 19:44] VITALS: BP 134/75; PULSE 128; RESP 20; TEMP 36.1; O2SAT 97; BMI 50.1
[2019-06-23] MEDS: MAG HYDROX/ALUMINUM/SIMETH SUS 20 ML, LIDOCAINE VISCOUS 2% 15 ML PO (19:48)
[2019-06-23] MEDS: PANTOPRAZOLE 40 MG VIAL IV (19:49)
[2019-06-23 19:55] LABS: Add Manual Diff / Slide Review NO; Basophils Absolute Auto 100 /uL (0-100); Basophils Percent Auto 0.6 % (0-2); Eosinophils Absolute Auto 300 /uL (0-450); Hematocrit 41.8 % (36-46); Hemoglobin 13.5 g/dL (12.0-16.0); Lymphocytes Absolute Auto 3700 /uL (1100-4500); Lymphocytes Percent Auto 21.8 % (25-40); Mean Corpuscular HGB Conc 32.3 % (30-36); Mean Corpuscular Hemoglobin 27.2 PG (26-34); Mean Corpuscular Volume 84.3 fL (80-100); Monocytes Absolute Auto 1000 /uL (0-900); Monocytes Percent Auto 5.9 % (3-14); Neutrophils Absolute Auto 11800 /uL (1500-7000); Neutrophils Percent Auto 69.7 % (50-75); Platelet Count 424 X10^3/uL (150-400); Red Blood Cell Count 4.96 X10^6/uL (4.0-5.2); Red Cell Distribution Width 16.1 % (11.6-14.8); White Blood Cell Count 16.9 X10^3/uL (4.5-11.0)
[2019-06-23 20:06] VITALS: BP 149/68; PULSE 126; RESP 24; O2SAT 93
[2019-06-23 20:07] LABS: BUN Creatinine Ratio 16.7 (6-22); Blood Urea Nitrogen 10 mg/dL (7-17); Calcium 9.2 mg/dL (8.4-10.2); Carbon Dioxide 30 mmol/L (22-32); Chloride 97 mmol/L (98-107); Creatine Kinase 51 U/L (30-135); Estimated Glomerular Filt Rate > 60.0 mL/min (>60); Glucose 143 mg/dL (70-100); HEMOLYSIS < 15 (0-50); Potassium 3.3 mmol/L (3.4-5.1); Sodium 137 mmol/L (137-145)
[2019-06-23 20:19] LABS: Troponin I < 0.012 ng/mL (0.01-0.034)
[2019-06-23] MEDS: ONDANSETRON 4 MG ODT SL (20:53)
[2019-06-23 21:00] VITALS: BP 118/71; PULSE 122; RESP 17; O2SAT 95
[2019-06-23 21:30] VITALS: BP 137/66; PULSE 120; RESP 14; O2SAT 94
[2019-06-23] MEDS: SODIUM CHLORIDE 0.9% 1,000 ML 1000 ML IV (21:44)
[2019-06-23 21:50] LABS: D Dimer < 200 ng/mL (<230)
[2019-06-23 22:00] VITALS: BP 129/89; PULSE 118; RESP 16; O2SAT 98
[2019-06-23 22:31] VITALS: PULSE 118; RESP 18
== END 2019-06-23 23:02 | disposition home or self-care (01) ==
PROVIDERS: Emergency Provider Emergency Medicine; Family Provider Family Medicine; PCP Family Medicine
DX: R07.89 Other chest pain (principal); I10 Essential (primary) hypertension; R10.13 Epigastric pain
CPT/HCPCS: 36415; 71045; 80048; 82550; 84484; 85025; 85379; 93005; 96361; 96374; 99283; 99285; C9113

== ENCOUNTER 2019-10-29 10:37 | Emergency (ER) | payer MEDICARE, MEDICAID, SELFPAY ==
[2019-10-29 11:00] VITALS: BP 154/87; PULSE 111; RESP 20; TEMP 36.7; O2SAT 95; BMI 50.4
--- NOTE | 2019-10-29 11:00 | DI.RAD.S_ITS ---
PROCEDURE: XR FOOT RT MIN 3V INDICATIONS: Bruising and sudden onset pain TECHNIQUE: 3 views of the foot were acquired. COMPARISON: [facility], CR, XR ANKLE RT MIN 3V, 10/29/2019, 11:00. FINDINGS: Bones: No fractures or dislocations. No suspicious bony lesions. Mild degenerative changes are noted involving the 1st metatarsophalangeal joint without associated hallux valgus. Soft tissues: No tibiotalar joint effusion. Achilles tendon appears normal. IMPRESSION: No acute osseous abnormality of the right foot. Dictated by: Max Funk M.D. on 10/29/2019 at 10:49 Approved by: Max Funk M.D. on 10/29/2019 at 10:51
--- NOTE | 2019-10-29 11:00 | DI.RAD.S_ITS ---
PROCEDURE: XR ANKLE RT MIN 3V INDICATIONS: Bruising and sudden onset pain TECHNIQUE: 3 views of the ankle were acquired. COMPARISON: [facility], CR, XR FOOT RT MIN 3V, 10/29/2019, 11:00. FINDINGS: Bones: No fractures or dislocations. Ankle mortise is normally aligned. No suspicious bony lesions. Soft tissues: No tibiotalar joint effusion. Achilles tendon appears normal. IMPRESSION: No acute osseous abnormality of the right ankle. Dictated by: Max Funk M.D. on 10/29/2019 at 10:46 Approved by: Max Funk M.D. on 10/29/2019 at 10:49
--- NOTE | 2019-10-29 11:36 | ED.EXTPRO ---
HPI - Extremity Problem <AMANDO Montes - Last Filed: 10/29/19 12:23> General Chief complaint: Extremity Problem,Nontraumatic Stated complaint: r inside ankle is swollen/blue/foot is red Time Seen by Provider: 10/29/19 11:03 Source: patient Mode of arrival: Ambulatory Limitations: no limitations History of Present Illness HPI Narrative: This is a 39-year-old female, nonsmoker, who presents to ED with caregiver with chief complaint of nontraumatic right medial ankle pain. Patient reports she noticed discomfort when she woke up from a nap yesterday. She does not recall a injury or trauma to affected ankle. Pain is right above the medial malleolar region with small swelling. Patient reports she had melanoma removal about 4 years ago but denies any mole or lesions that she noticed on affected site. Patient reports intact sensation and mobility to her toes. Patient reports she has multiple medical problems such as fibromyalgia depression, anxiety, social phobia, metacarpal inflammation, low cortisol level, asthma, migraine headache and degenerative disc in her back and neck. Patient takes multiple medications for her chronic conditions. Patient denies currently taking estrogen replacement, prolonged bed rest or so recent surgeries, history of blood clots. Related Data Home Medications Medication Instructions Recorded Confirmed albuterol sulfate 90 mcg/actuation 2 puff INHALATION Q4-6H PRN 03/31/18 10/29/19 aerosol inhaler fluticasone propionate 100 2 inhalation INHALATION BID each 05/01/18 06/30/19 mcg/actuation blister powder for inhalation dupilumab 300 mg/2 mL subcutaneous 300 mg SUBCUT QWEEK 04/15/19 06/30/19 syringe methylprednisolone 4 mg tablet 4 mg PO DAILY 05/21/19 06/30/19 baclofen 40 mg PO BEDTIME 10/29/19 lamotrigine 100 mg PO DAILY 10/29/19 10/29/19 lidocaine 1 applic TOPICAL BID PRN 10/29/19 10/29/19 magnesium oxide 1,000 mg PO BEDTIME 10/29/19 10/29/19 ondansetron HCl 4 mg PO Q8H PRN 10/29/19 10/29/19 umeclidinium [Incruse Ellipta] 1 inh INHALATION DAILY 10/29/19 10/29/19 Previous Rx's Medication Instructions Recorded fluticasone furoate 200 1 inhalation INHALATION BEDTIME 05/06/18 mcg-vilanterol 25 mcg/dose #60 each inhalation powder gabapentin 600 mg tablet 600 mg PO BID #180 tab 10/06/18 fremanezumab-vfrm 225 mg/1.5 mL 225 mg SUBCUT QMONTH #1.5 ml 10/12/18 subcutaneous syringe montelukast 10 mg tablet 10 mg PO BEDTIME #90 tab 12/31/18 prazosin 1 mg capsule 3 mg PO BEDTIME #270 cap 01/11/19 dihydroergotamine 1 mg/mL 1 mg SUBCUT Q8H PRN #10 amp 02/18/19 injection solution diazepam 5 mg tablet 5 mg PO TID #90 tab 04/15/19 lisinopril 20 mg tablet 20 mg PO DAILY #90 tab 04/15/19 triamcinolone acetonide 0.1 % 1 applictn TOP BID #15 gram 05/06/19 topical cream omeprazole 40 mg capsule,delayed 40 mg PO BID #60 ecc 06/07/19 release pilocarpine HCl 4 % eye drops See Rx Instructions .ROUTE 06/08/19 .COMPLEX #15 ml hydroxyzine HCl 50 mg tablet 50 mg PO TID PRN #180 tab 06/30/19 triamcinolone acetonide 55 mcg 2 spray INTRANASAL BEDTIME #16.9 ml 07/07/19 nasal spray aerosol cholecalciferol (vitamin D3) 4,000 2,000 unit PO BID #180 cap 08/18/19 unit capsule vortioxetine 20 mg tablet 20 mg PO DAILY #90 tab 08/23/19 Allergies Allergy/AdvReac Type Severity Reaction Status Date / Time bupropion [BUPROPION] Allergy Mild facial rash Verified 10/29/19 11:03 hydrocodone [HYDROCODONE] Allergy Mild rash Verified 10/29/19 11:03 iodine [IODINE] Allergy Mild edema Verified 10/29/19 11:03 Review of Systems <AMANDO Montes - Last Filed: 10/29/19 12:23> Review of Systems Narrative: General: Denies fever, chills, fatigue, malaise, sweats. HEENT: Denies sinus pain, ear pain, sore throat, difficulty swallowing, dizziness. Respiratory: Denies dyspnea, cough, wheezing, hemoptysis, sputum. Cardiovascular: Denies chest pain, palpitations, orthopnea, edema. Gastrointestinal: Denies nausea, vomiting, abdominal pain, diarrhea, constipation, melena. : Denies dysuria, frequency, incontinence, hematuria, urinary retention. Musculoskeletal: See HPI Skin: Denies rash, skin lesions, or other. Neurologic: Denies weakness, headache, numbness, change in speech, confusion, seizures, incoordination. Psychiatric: No concerning psychosocial issues. 12-point review of systems is negative except for those stated above. Patient History <AMANDO Montes - Last Filed: 10/29/19 12:23> Medical History Abnormal Pap smear of cervix (Resolved) Agoraphobia (Chronic) Anal fissure (Resolved 01/24/12) Anemia (Resolved) Anxiety (Chronic) Asthma (Chronic) Asthma with allergic rhinitis (Chronic) BRCA negative (Resolved) Bursitis of left hip (Chronic) Chronic back pain (Chronic) Chronic cough (Chronic) Chronic headaches (Chronic) Corneal pigmentation of both eyes (Chronic) Depression (Chronic) Endometriosis (Resolved) Essential (primary) hypertension (Acute) Fibromyalgia (Chronic) Frequent UTI (Chronic) Gastric ulcer (Chronic) Gastroparesis (Chronic) GERD (gastroesophageal reflux disease) (Chronic) GI bleeding (Chronic) Hayfever (Chronic) Hearing loss (Chronic) Hemorrhoids (Chronic) History of heavy periods (Resolved) History of partial hysterectomy (01/04/16) History of recurrent ear infection (Resolved) History of tilt table evaluation (Resolved 05/02/15) IBS (irritable bowel syndrome) (Chronic) Interstitial cystitis (Chronic) Irregular periods/menstrual cycles (Resolved) Kidney infection (Resolved 2002) Migraines (Chronic) MRSA infection (Chronic) Ovarian cyst (Resolved) Painful menstrual periods (Resolved) Panic attacks (Chronic) Partial blindness (Chronic) PTSD (post-traumatic stress disorder) (Chronic) PUD (peptic ulcer disease) (Chronic) Recurrent sinusitis (Resolved) Rheumatoid arthritis (Chronic) Scoliosis (Chronic) Tachycardia (Chronic) Tinnitus (Chronic) Vaginal delivery (Resolved) Vertigo (Chronic) Surgical History Anesthesia complication (Resolved) History of bladder surgery (Resolved 02/2001) History of bladder suspension procedure (Resolved 06/14/13) History of colonoscopy (Resolved 01/10/15) History of endoscopy (Resolved 05/04/07) History of endoscopy (Resolved 01/10/15) History of hip surgery (Resolved 12/13/92) History of rectal surgery (Resolved 01/24/12) History of third molar tooth extraction (Resolved 1997) Status post appendectomy (Resolved 08/1996) Status post dilation and curettage (Resolved 10/2009) Status post hysterectomy (Resolved 05/07/10) Status post laparoscopic cholecystectomy (Resolved 03/11/06) Status post laparoscopy (Resolved 1999) Status post laparoscopy (Resolved 05/04/07) Family History Brother Age: 43 Back pain Brother Age: 42 Migraines Child Age: 16 Mental health problem Child Age: 15 Asperger syndrome Father Age: 66 Anger Mother Age: 60 Hypothyroidism Anxiety Stroke Sister Age: 43 Thyroid cancer Brain tumor Grandfather No problems noted. Grandmother Brain tumor Grandfather No problems noted. Grandmother Ovarian cancer Social History marital status: number of children: 2 household members: family lives independently: Yes caregiver/support person: Yes housing: house Smoking Status: Never smoker second hand exposure: No alcohol intake: never substance use type: does not use Smoking Status: Never smoker alcohol intake frequency: 0-2 drinks per day Substance Use Type: does not use Exam <AMANDO Montes - Last Filed: 10/29/19 12:23> Narrative Exam Narrative: General appearance: well developed, well nourished, in no acute distress. Head: normocephalic, atraumatic, no scalp lesions, non-tender. ENT: Hearing grossly intact. Nose without bleeding, purulent discharge or deviation. Mucous membrane moist, no mucosal lesion. Throat without erythema, tonsillar hypertrophy or exudate. Uvula in midline, airway patent. Neck/Thyroid: neck supple, full range of motion, no visible masses or meningeal signs. No JVD, non-tender without lymphadenopathy. Skin: no suspicious rashes, lesions over visible areas. Warm and dry and appropriate color for ethnicity. Heart: no clubbing, no cyanosis, no edema. S1 and S2 normal. RRR w/o murmurs, clicks, or bruits. Lungs: Breathing even and unlabored. Lungs clear to auscultate in all lobes. No stridor or wheezing. No accessory muscles used. Able to speak in full sentences. Chest: normal shape and expansion. Abdomen: obese, non-distended. Neurologic: alert and oriented. Cognitive exam, BUYER AGENT and PNS grossly intact on informal exam. Psych: good eye contact, normal affect. Initial Vital Signs Initial Vital Signs: Vital Signs Temperature 98.0 F 10/29/19 11:00 Pulse Rate 111 H 10/29/19 11:00 Respiratory Rate 10/29/19 11:00 Blood Pressure 154/87 H 10/29/19 11:00 Pulse Oximetry 95 10/29/19 11:00 Extrem Right lower extremity: normal to inspection, full ROM, normal capillary refill, no joint enlargement, knee Details: normal to inspection; no tenderness and no swelling, lower leg Details: normal to inspection and non-pitting edema; no erythema, no tenderness, no localized swelling, no palpable cords, no ecchymosis and no unusual warmth, ankle Details: tenderness Location: of the medial malleolus (Right above the medial malleolar), swelling (Mild supra medial malleolar) Details: medially and ecchymosis (very mild on medial supra malleolar); no crepitus, no foreign bodies and no penetrating wound and foot Details: normal capillary refill, normal to inspection, toes with normal ROM, no edema, vascular exam Details: dorsalis pedis pulse present and normal capillary refill and motor-sensory exam Details: light-touch normal; no tenderness; no cyanosis <Roman Bergman DO - Last Filed: 10/29/19 19:18> Initial Vital Signs Initial Vital Signs: Vital Signs Temperature 98.0 F 10/29/19 11:00 Pulse Rate 111 H 10/29/19 11:00 Respiratory Rate 10/29/19 11:00 Blood Pressure 154/87 H 10/29/19 11:00 Pulse Oximetry 95 10/29/19 11:00 Procedures <AMANDO Montes - Last Filed: 10/29/19 12:23> Orthopedic Splinting/Casting Injury #1: Side: right Lower Extremity Immobilizer: Alexander wrap Post splinting neuro exam: intact Post splinting vascular exam: intact Placed by: Nursing Scores <AMANDO Montes - Last Filed: 10/29/19 12:23> Ricky' Criteria for DVT Active Cancer (Treatment within 6 months): No Bedridden recently >3 days or major surgery within 4 weeks: No Calf Swelling >3cm compared to other leg: No Collateral (nonvericose) superficial veins present: No Entire leg swollen: No Localized tenderness along the deep vein system: No Pitting edema, confined to symtomatic leg: No Paralysis, paresis, or recent plaster immobilization of ext: No Previously documented DVT: No Alternative dx to DVT as likely or more likely: Yes Ricky' criteria for DVT: -2 Course <AMANDO Montes - Last Filed: 10/29/19 12:23> Orders Ordered: ED Orders 10/29/19 11:00 XR ankle RT min 3V Stat XR foot RT min 3V Stat Vital Signs Vital signs: Vital Signs - 8 hr 10/29/19 12:23 10/29/19 12:27 Pulse Rate 88 Pulse Rate [Right Posterior Tibial] 80 Respiratory Rate 12 Pulse Oximetry 100 <Roman Bergman DO - Last Filed: 10/29/19 19:18> Orders Ordered: ED Orders 10/29/19 11:00 XR ankle RT min 3V Stat XR foot RT min 3V Stat Vital Signs Vital signs: Vital Signs - 8 hr 10/29/19 12:23 10/29/19 12:27 Pulse Rate 88 Pulse Rate [Right Posterior Tibial] 80 Respiratory Rate 12 Pulse Oximetry 100 MDM - Extremity (Nontraumatic) <AMANDO Montes - Last Filed: 10/29/19 12:23> Differential Diagnosis Differential diagnosis: Likely gout, cellulitis, deep vein thrombosis of lower extremity and other (Sprain) Medical Records Attestation: I reviewed the patient's medical records. Imaging Data XR-Ankle RT: Radiologist's Impression: [address] [address] XRay Report Signed Patient: Dorinda Harper [employer] [facility]#: [id number] : 1980Acct:[id number] Age/Sex: 39 / FDate of Service: 10/29/19 Loc: ED Accession Number: [id number] Procedure: XR ankle RT min 3V Ordering Provider: Roman Bergman D.O. PROCEDURE: XR ANKLE RT MIN 3V INDICATIONS: Bruising and sudden onset pain TECHNIQUE: 3 views of the ankle were acquired. COMPARISON: [facility], XR FOOT RT MIN 3V, 10/29/2019, 11:00. FINDINGS: Bones: No fractures or dislocations. Ankle mortise is normally aligned. No suspicious bony lesions. Soft tissues: No tibiotalar joint effusion. Achilles tendon appears normal. IMPRESSION: No acute osseous abnormality of the right ankle. Dictated by: Max Funk M.D. on 10/29/2019 at 10:46 Approved by: Max Funk M.D. on 10/29/2019 at 10:49 XR-Foot RT: Radiologist's Impression: [place] [address] XRay Report Signed Patient: Dorinda Harper [employer] [facility]#: [id number] : 1980Acct:[id number] Age/Sex: 39 / FDate of Service: 10/29/19 Loc: ED Accession Number: [id number] Procedure: XR foot RT min 3V Ordering Provider: Roman Bergman D.O. PROCEDURE: XR FOOT RT MIN 3V INDICATIONS: Bruising and sudden onset pain TECHNIQUE: 3 views of the foot were acquired. COMPARISON: [facility], XR ANKLE RT MIN 3V, 10/29/2019, 11:00. FINDINGS: Bones: No fractures or dislocations. No suspicious bony lesions. Mild degenerative changes are noted involving the 1st metatarsophalangeal joint without associated hallux valgus. Soft tissues: No tibiotalar joint effusion. Achilles tendon appears normal. IMPRESSION: No acute osseous abnormality of the right foot. Dictated by: Max Funk M.D. on 10/29/2019 at 10:49 Approved by: Max Funk M.D. on 10/29/2019 at 10:51 MDM Narrative Medical decision making narrative: No acute findings on right foot and ankle x-ray today. Wells criteria for DVT is -2 score. Considered cellulitis but there is no significant redness, swelling, warmth to touch appreciated on right lower extremity. Will treat patient's discomfort above right medial discomfort as sprain and applied Alexander wrap and provided ice pack. Patient advised RICE therapy at home and to use [id number] Tylenol and lidocaine gel as needed use. Return precautions were discussed with the patient and patient verbalized understanding and in agreement with the treatment plan. Discharge Plan Departure Patient Disposition: Home Clinical Impression: Right ankle sprain Qualifiers: Encounter type: initial encounter Involved ligament of ankle: unspecified ligament Qualified Code(s): S93.401A - Sprain of unspecified ligament of right ankle, initial encounter Discharge Date/Time: 10/29/19 12:33 Instructions: DI for Ankle Sprain Activity Restrictions/Additional Instructions: You have been diagnosed with [right medial ankle pain possibly sprain. X-ray tests on right foot and ankle does not show acute findings. Your right ankle has supported with Alexander wrap.]. What to do: *Take your medications as directed. You can take [id number] Tylenol and your outpatient medication lidocaine gel on affected area for discomfort. Rest, use cool pack next 24-48 hours and elevate affected leg during rest. Use compression Alexander wrap for support. *Follow up with your primary care provider in 2-3 days, call for an appointment. Let them know you were seen in the ED and that we asked you to be seen in follow up. *Return to ED if you have any new, worsening, or concerning symptoms, such as [if you see any skin lesion and unusual mole on affected site, increasing redness, swelling, warmth unaffected calf, fever, increasing pain, chest pain, breathing difficulty or any acute concerns]. Prescriptions: No Action triamcinolone acetonide 0.1 % cream 1 applictn TOP BID Qty: 15 RF: 0 Dupixent 300 mg/2 mL syringe 300 mg SUBCUT QWEEK RF: 0 lisinopril 20 mg tablet 20 mg PO DAILY Qty: 90 RF: 3 diazepam 5 mg tablet 5 mg PO TID Qty: 90 RF: 3 fluticasone propionate [Flovent Diskus] 100 mcg/actuation blister with device 2 inhalation INHALATION BID RF: 0 gabapentin 600 mg tablet 600 mg PO BID Qty: 180 RF: 3 methylprednisolone 4 mg tablet 4 mg PO DAILY RF: 0 pilocarpine HCl 4 % drops See Rx Instructions .ROUTE .COMPLEX Qty: 15 RF: 2 prazosin 1 mg capsule 3 mg PO BEDTIME Qty: 270 RF: 2 hydroxyzine HCl 50 mg tablet 50 mg PO TID PRN (Reason: anxiety) Qty: 180 RF: 1 fluticasone furoate-vilanterol [Breo Ellipta] 200-25 mcg/dose blister with device 1 inhalation INHALATION BEDTIME Qty: 60 RF: 0 montelukast [Singulair] 10 mg tablet 10 mg PO BEDTIME Qty: 90 RF: 3 dihydroergotamine 1 mg/mL solution 1 mg SUBCUT Q8H PRN (Reason: migraine headache) Qty: 10 RF: 11 omeprazole 40 mg capsule,delayed release(DR/EC) 40 mg PO BID Qty: 60 RF: 11 triamcinolone acetonide [Nasacort] 55 mcg aerosol,spray 2 spray Intranasal BEDTIME Qty: 16.9 RF: 1 Vitamin D3 4,000 unit capsule 2,000 unit PO BID Qty: 180 RF: 1 Trintellix 20 mg tablet 20 mg PO DAILY Qty: 90 RF: 1 Incruse Ellipta 62.5 mcg/actuation blister with device 1 inh INHALATION DAILY RF: 0 ondansetron HCl 4 mg tablet 4 mg PO Q8H PRN (Reason: Nausea) RF: 0 baclofen 20 mg tablet 40 mg PO BEDTIME RF: 0 magnesium oxide 500 mg tablet 1,000 mg PO BEDTIME RF: 0 lamotrigine 100 mg tablet 100 mg PO DAILY RF: 0 lidocaine 5 % ointment 1 applic topical BID PRN (Reason: pain) RF: 0 fremanezumab-vfrm [Ajovy] 225 mg/1.5 mL syringe 225 mg SUBCUT QMONTH Qty: 1.5 RF: 11 albuterol sulfate [ProAir HFA] 90 mcg/actuation HFA aerosol inhaler 2 puff INHALATION Q4-6H PRN (Reason: Shortness Of Breath) RF: 0 Referrals: Rolanda Raymond MD [Primary Care Provider] -
[2019-10-29 12:23] VITALS: PULSE 88; RESP 12; O2SAT 100
[2019-10-29 12:27] VITALS: PULSE 80
== END 2019-10-29 12:33 | disposition home or self-care (01) ==
PROVIDERS: Emergency Provider Nurse Practitioner Family; Family Provider Family Medicine; PCP Family Medicine
DX: S93.401A Sprain of unspecified ligament of right ankle, initial encounter (principal)
CPT/HCPCS: 73610; 73630; 99283

== ENCOUNTER → 2020-05-23 15:34 | Outpatient (CLI) | payer MEDICARE, MEDICAID, SELFPAY ==
--- NOTE | 2020-05-23 15:37 | DI.RAD.S_ITS ---
PROCEDURE: XR LUMBAR SPINE 2-3V INDICATIONS: back pain TECHNIQUE: 3 views of the lumbar spine were acquired. COMPARISON: [facility], , L-SPINE 2-3 VIEWS, 12/29/2007, 9:07. FINDINGS: Bones: No fracture. Multilevel degenerative endplate sclerosis and spurring. Diffuse facet arthropathy. Mild L5-S1 disc space narrowing. The remaining disc spaces grossly preserved. Levocurvature noted Soft tissues: Overlying bowel gas pattern is normal. No suspicious soft tissue calcifications. IMPRESSION: Mild L5-S1 disc degeneration. Levocurvature. Dictated by: Medardo Saavedra M.D. on 05/23/2020 at 17:13 Approved by: Medardo Saavedra M.D. on 05/23/2020 at 17:14
--- NOTE | 2020-05-23 15:37 | DI.RAD.S_ITS ---
PROCEDURE: XR THORACIC SPINE 3V INDICATIONS: pain TECHNIQUE: 3 views of the thoracic spine were acquired. COMPARISON: None. FINDINGS: Bones: No fracture. Spondylitic changes spurring and sclerosis. Soft tissues: No paravertebral stripe thickening. IMPRESSION: No fracture identified. If the patient's pain or other symptoms persist, consider further evaluation with MRI Dictated by: Medardo Saavedra M.D. on 05/23/2020 at 17:12 Approved by: Medardo Saavedra M.D. on 05/23/2020 at 17:13
--- NOTE | 2020-05-23 16:05 | DI.ECHO.S_ITS ---
Echocardiogram Report + + :Name: WILVER CALDERÓN Study Date: 05/23/2020 Height: 70 in : :[facility] Weight: 356 lb : : Gender: Female BSA: 2.7 m2 : :: 1980 Age: 40 yrs BP: 163/110 mmHg: :Reason For Study: SHORTNESS OF BREATH : :Ordering Physician: PAULETTE, : :RACHEL Performed By: Rosa Isela Lucas : :Referring: RACHEL CALDWELL : + + Interpretation Summary This is a technically difficult study which required Definity echocontrast to enhance endocardial visualization. Sinus tachycardia with HR of 97-104 bpm. Normal LV size and wall thickness. There is subtle distal septal and distal inferior hypokinesis which could be due to small area of ischemia or due to conduction system disease. Normal LV systolic function. EF is 60-65%. Normal chamber sizes. No significant valvular abnormalities. Compared to prior study 11/05/2018 no significant changes have occurred. Procedure: A two-dimensional transthoracic echocardiogram with color flow and Doppler was performed. The study quality was technically difficult. A contrast injection of Definity was performed to improve assessment of LV function. Comparison is made with the echocardiogram of 11/05/2018. Apicals best while in supine position. Viewed at end of exam. Left Ventricle: The left ventricle is normal in size. There is mild concentric left ventricular hypertrophy. The ejection fraction is estimated to be 60-65%. Diastolic parameters suggest a relaxation abnormality of the left ventricle, consistent with probable normal filling pressures. Right Ventricle: The right ventricle is normal in size and function. Atria: Both atria are normal in size. There is no Doppler evidence for an interatrial shunt. Mitral Valve: The mitral valve is grossly normal. There is mild mitral regurgitation. Aortic Valve: The aortic valve is not well visualized. There is no aortic valve stenosis. No aortic regurgitation is present. Tricuspid Valve: The tricuspid valve is not well visualized, but is grossly normal. There is trace tricuspid regurgitation. Pulmonic Valve: The pulmonic valve is not well visualized. There is no pulmonic valvular regurgitation. Great Vessels: The aortic root is not well visualized but is probably normal size. The dimensions of the ascending aorta are normal. The inferior vena cava was not well visualized. Pericardium/ Pleura There is no pericardial effusion. There is no pleural effusion. MMode/2D Measurements & Calculations LVIDd: 5.1 cm asc Aorta Diam: 3.3 cm LVIDs: 3.1 cm Ao Arch Diam (Prox Trans): 3.2 cm FS: 38.7 % EPSS: 0.81 cm IVSd: 1.3 cm LVPWd: 1.1 cm LV cho. diameter/BSA (cm/m^2): 1.9 LV sys. diameter/BSA (cm/m^2): 1.2 LA A2 area: 15.1 cm2 RA long axis: 4.6 cm LA A4 area: 26.3 cm2 RA area: 18.8 cm2 LA length (vol): 5.7 cm RA vol: 65.3 ml LA vol: 59.0 ml RA : 24.5 ml/m2 LA vol index: 22.1 ml/m2 RVD1 (basal): 4.0 cm TAPSE: 2.6 cm Doppler Measurements & Calculations Ao V2 max: 152.6 cm/sec LVOT Max El: 120.1 cm/sec Ao V2 mean: 102.1 cm/sec LV V1 max P.8 mmHg Ao max P.3 mmHg LV V1 VTI: 22.8 cm Ao mean P.0 mmHg sev ratio: 0.83 Ao V2 VTI: 27.4 cm MV E max el: 124.9 cm/sec PA V2 max: 81.6 cm/sec MV A max el: 127.1 cm/sec PA V2 mean: 52.8 cm/sec MV E/A: 0.98 PA mean P.3 mmHg Med Peak E' El: 6.6 cm/sec PA pr(Accel): 22.5 mmHg E/E' med: 19.0 Lat Peak E' El: 8.4 cm/sec E/E' lat: 14.8 E/e' average: 16.9 MV dec time: 0.24 sec Electronically signed by: Adrianna Daly M.D. on Reading Physician:05/24/2020 05:01 AM
== END ==
PROVIDERS: Family Provider Family Medicine; PCP Family Medicine; Referring Provider Family Medicine; Visit Provider Family Medicine
DX: I34.0 Nonrheumatic mitral (valve) insufficiency (principal); R06.02 Shortness of breath; R06.01 Orthopnea; M51.37 Other intervertebral disc degeneration, lumbosacral region; M54.9 Dorsalgia, unspecified
CPT/HCPCS: 72072; 72100; C8929; Q9957

== ENCOUNTER 2020-08-02 09:59 | Inpatient (IN) | payer MEDICARE, MEDICAID, SELFPAY ==
[2020-08-02] VITALS (16 sets, daily range): BP systolic 122–144; BP diastolic 60–88; PULSE 104–121; RESP 15–28; TEMP 36.9–37.2; O2SAT 91–96; BMI 50.8; BMI 51.2
[2020-08-02 10:34] LABS: Bacteria Urine None Seen; WBC Urine None Seen (0-5/HPF)
[2020-08-02 10:36] LABS: Appearance Urine UA CLEAR; Bilirubin Urine UA NEGATIVE (NEGATIVE); Color Urine UA YELLOW; Glucose Urine UA NEGATIVE (Negative); Ketones Urine UA NEGATIVE (NEGATIVE); Leukocyte Esterase Urine UA NEGATIVE (NEGATIVE); Nitrite Urine UA NEGATIVE (Negative); Occult Blood Urine UA NEGATIVE (Negative); Protein Urine UA NEGATIVE (Negative); Urobilinogen Urine UA 0.2 E.U./dL (0.2)
--- NOTE | 2020-08-02 10:39 | ED.GENADULT ---
HPI - General Adult General Chief complaint: Toxicology Problem Stated complaint: Overdose/Suicidal Ideation Time Seen by Provider: 08/02/20 10:10 Source: patient Mode of arrival: EMS Limitations: no limitations History of Present Illness HPI narrative: Patient is a 40-year-old female with longstanding history of anxiety and depression and other chronic medical issues here for evaluation after she reportedly took up to 100 tablets of non enteric-coated 325 mg aspirin at 0130 in the morning. She states that yesterday she had a relatively bad day stemmed around issues with her underlying depression and also issues with her teenage children and school. She states she was crying most of the day yesterday. Attempted to contact her therapist however was unable to get any appointment until 0400 hours this afternoon. She states that 130 she was up and been crying all day and felt very bad and depressed so she went to her medicine cabinet in took the pills in the bottle that she had. She denies that she specifically took them to hurt herself. She states she took it so that she just could feel different and not in pain anymore. She did not call anyone at the time however she did write a note on her phone explaining her actions ?just in case? something did happen. The candy counter clerk came to her house today and the patient told the candy counter clerk which she did in EMS was called. Patient denies any current suicidality. Denies any other ingestions to include alcohol or drugs. Related Data Home Medications Medication Instructions Recorded Confirmed albuterol sulfate 90 mcg/actuation 2 puff INHALATION Q4-6H PRN 03/31/18 05/01/20 aerosol inhaler dupilumab 300 mg/2 mL subcutaneous 300 mg SUBCUT QWEEK 04/15/19 05/01/20 syringe umeclidinium [Incruse Ellipta] 1 inh INHALATION DAILY 10/29/19 05/01/20 levalbuterol HCl 1.25 mg/3 mL 1.25 mg INHALATION Q4-6H PRN 05/01/20 05/01/20 solution for nebulization Previous Rx's Medication Instructions Recorded fluticasone furoate 200 1 inhalation INHALATION BEDTIME 05/06/18 mcg-vilanterol 25 mcg/dose #60 each inhalation powder dihydroergotamine 1 mg/mL 1 mg SUBCUT Q8H PRN #10 amp 02/18/19 injection solution pilocarpine HCl 4 % eye drops See Rx Instructions .ROUTE 06/08/19 .COMPLEX #15 ml prazosin 1 mg capsule 3 mg PO BEDTIME #270 cap 11/17/19 gabapentin 300 mg capsule 300 mg PO DAILY #90 cap MDD 1500mg 12/16/19 gabapentin 600 mg tablet 600 mg PO BID #180 tab MDD 1500 mg 12/16/19 montelukast 10 mg tablet 10 mg PO BEDTIME #90 tab 01/18/20 clindamycin phosphate 1 % topical 1 applictn TOP BID #60 gram 05/01/20 gel diazepam 5 mg tablet 5 mg PO TID #90 tab 05/01/20 lidocaine 5 % topical ointment 1 applic TOPICAL BID PRN #50 gram 05/01/20 triamcinolone acetonide 0.5 % 1 applictn TOP BID #15 gram 05/01/20 topical cream magnesium oxide 500 mg tablet See Rx Instructions .ROUTE 06/05/20 .COMPLEX #180 tab omeprazole 40 mg capsule,delayed See Rx Instructions .ROUTE 06/05/20 release .COMPLEX #60 capsule vortioxetine 20 mg tablet 20 mg PO DAILY #90 tab 06/06/20 lisinopril 20 mg tablet See Rx Instructions .ROUTE 07/05/20 .COMPLEX #90 tab lamotrigine 150 mg tablet 150 mg PO DAILY #90 tab 07/18/20 baclofen 20 mg tablet See Rx Instructions .ROUTE 07/24/20 .COMPLEX #60 tab ondansetron 8 mg disintegrating 8 mg PO Q8H PRN #90 tab 07/25/20 tablet hydroxyzine HCl 50 mg tablet 50 mg PO TID PRN #180 tab 07/27/20 cholecalciferol (vitamin D3) 100 2,000 unit PO BID #180 cap 08/02/20 mcg (4,000 unit) capsule Allergies Allergy/AdvReac Type Severity Reaction Status Date / Time bupropion [BUPROPION] Allergy Mild facial rash Verified 05/01/20 15:43 hydrocodone [HYDROCODONE] Allergy Mild rash Verified 05/01/20 15:43 iodine [IODINE] Allergy Mild edema Verified 05/01/20 15:43 Review of Systems Constitutional Constitutional: Reports fatigue, Denies fever(s) and Reports headache(s) Eyes Eyes: Denies change in vision ENT Ears, Nose, Mouth, and Throat: Reports headache(s) Comments: No ringing in her ears Cardiovascular Cardiovascular: Reports chest pain (This is not new for her) and Reports dyspnea (This is not new for her) Respiratory Respiratory: Reports dyspnea (This is not new for her) Gastrointestinal Gastrointestinal: Reports nausea Genitourinary Genitourinary: Denies dysuria Genitourinary: Denies dysuria Musculoskeletal Musculoskeletal: Reports myalgias Integumentary/Breasts Skin/Breast: Denies rash Neurologic Neurologic: Reports behavioral changes (Depression) and Reports headache(s) Psychiatric Psychiatric: Reports anxiety, Reports behavioral changes (Depression), Reports depression and Reports hopelessness Endocrine Endocrine: Reports fatigue Hematologic/Lymphatic Hematologic/Lymphatic: Denies easy bleeding and Denies easy bruising Allergic/Immunologic Allergic/Immunologic: Denies urticaria Patient History Medical History Abnormal Pap smear of cervix Agoraphobia Anal fissure (01/24/12) Anemia Anxiety Asthma Asthma with allergic rhinitis BRCA negative Bursitis of left hip Chronic back pain Chronic cough Chronic headaches Corneal pigmentation of both eyes Depression Endometriosis Essential (primary) hypertension Fibromyalgia Frequent UTI Gastric ulcer Gastroparesis GERD (gastroesophageal reflux disease) GI bleeding Hayfever Hearing loss Hemorrhoids History of heavy periods History of partial hysterectomy (01/04/16) History of recurrent ear infection History of tilt table evaluation (05/02/15) IBS (irritable bowel syndrome) Interstitial cystitis Irregular periods/menstrual cycles Kidney infection (2002) Migraines MRSA infection Ovarian cyst Painful menstrual periods Panic attacks Partial blindness PTSD (post-traumatic stress disorder) PUD (peptic ulcer disease) Recurrent sinusitis Rheumatoid arthritis Scoliosis Tachycardia Tinnitus Vaginal delivery Vertigo Surgical History Anesthesia complication History of bladder surgery (02/2001) History of bladder suspension procedure (06/14/13) History of colonoscopy (01/10/15) History of endoscopy (05/04/07) History of endoscopy (01/10/15) History of hip surgery (12/13/92) History of rectal surgery (01/24/12) History of third molar tooth extraction (1997) Status post appendectomy (08/1996) Status post dilation and curettage (10/2009) Status post hysterectomy (05/07/10) Status post laparoscopic cholecystectomy (03/11/06) Status post laparoscopy (1999) Status post laparoscopy (05/04/07) Family History Brother Age: 44 Back pain Brother Age: 43 Migraines Child Age: 17 Mental health problem Child Age: 16 Asperger syndrome Father Age: 67 Anger Mother Age: 61 Hypothyroidism Anxiety Stroke Sister Age: 44 Thyroid cancer Brain tumor Grandfather No problems noted. Grandmother Brain tumor Grandfather No problems noted. Grandmother Ovarian cancer Social History marital status: number of children: 2 household members: family lives independently: Yes caregiver/support person: Yes housing: house Smoking Status: Never smoker second hand exposure: No alcohol intake: never substance use type: does not use Smoking Status: Never smoker alcohol intake frequency: 0-2 drinks per day Substance Use Type: does not use Exam Initial Vital Signs Initial Vital Signs: Vital Signs Temperature 98.4 F 08/02/20 10:16 Pulse Rate 114 H 08/02/20 10:16 Respiratory Rate 24 08/02/20 10:16 Blood Pressure 142/66 H 08/02/20 10:16 Pulse Oximetry 94 08/02/20 10:16 Const General: cooperative and disheveled Limitations: mental status not altered HENMT Head: normal to inspection and normocephalic Ears: hearing grossly normal bilaterally Chest Chest: No tenderness Resp Effort & Inspection: tachypneic Auscultation: clear to auscultation bilaterally Cardio Rate: tachycardic Rhythm: regular rhythm GI Inspection: non-distended Palpation: soft Skin Lesions: no lesions Rashes: no rashes Neuro General: patient alert, patient awake and patient oriented x3 Cognition: normal cognition Speech: speech normal Extrem General: normal to inspection, capillary refill normal and No edema Psych Appearance: disheveled Mood: labile mood Affect: sad Scores GCS Martina coma scale eye opening: Spontaneous Reading coma scale verbal response: Orientated Martina coma scale motor response: Obey commands Reading coma scale total score: 15 Course Orders Ordered: ED Orders 08/02/20 10:10 Test Urine Stat Urinalysis and Microscopic Stat Urine Drug Screen, Rapid Stat 08/02/20 10:17 EKG-12 Lead Stat 08/02/20 10:35 COVID19 Stat 08/02/20 10:45 Acetaminophen Stat Basic Metabolic Panel Stat Complete Blood Count AUTO DIFF Stat Ethanol (ETOH) Stat Hepatic (Liver) Panel Stat Lactate (Lactic Acid) Stat Lipase Stat Partial Thromboplastin Time Stat Prothrombin Time INR Stat Salicylate Stat Thyroid Stimulating Hormone Stat 08/02/20 11:10 Venous Blood Gas Stat Sodium Chloride (Normal Saline 0.9%) 1,000 mls @ 125 mls/hr IV CONT LAILA Last Infusion: 08/02/20 12:22 Dose: 0 mls/hr Documented by: Admin: 08/02/20 11:13 Dose: 125 mls/hr Documented by: BASHIR Sodium Bicarbonate 150 meq/Potassium Chloride 40 meq/Dextrose 1,170 mls @ 250 mls/hr IV NOW ONE Stop: 08/02/20 16:55 Last Admin: 08/02/20 12:29 Dose: 250 mls/hr Documented by: BASHIR Cosigned by: BTONER Discontinued Medications Ondansetron HCl (Ondansetron 4 Mg/2 Ml Inj) 4 mg IV NOW ONE Stop: 08/02/20 10:40 Last Admin: 08/02/20 11:13 Dose: 4 mg Documented by: BASHIR Vital Signs Vital signs: Vital Signs - 8 hr 08/02/20 10:16 08/02/20 11:01 08/02/20 12:00 Temperature 98.4 F Pulse Rate 114 H 106 H 104 H Respiratory Rate 24 15 15 Blood Pressure 142/66 H 122/60 Pulse Oximetry 94 92 92 08/02/20 12:01 08/02/20 12:30 Temperature Pulse Rate 105 H 114 H Respiratory Rate 15 21 Blood Pressure 141/60 H Pulse Oximetry 92 94 Medical Decision Making Lab Data Lab results reviewed: Yes I reviewed the patient's lab results. Result diagrams: 08/02/20 10:45 08/02/20 10:45 Labs: Lab Results 08/02/20 08/02/20 08/02/20 Range/Units 10:10 10:10 10:10 WBC (4.5-11.0) X10^3/uL RBC (4.0-5.2) X10^6/uL Hgb (12.0-16.0) g/dL Hct (36-46) % MCV (80-100) fL MCH (26-34) PG MCHC (30-36) % RDW (11.6-14.8) % Plt Count (150-400) X10^3/uL Neut % (Auto) (50-75) % Lymph % (Auto) (25-40) % [place] % (Auto) (3-14) % Eos % (Auto) (2-4) % Baso % (Auto) (0-2) % Neut # (Auto) (9392-6950) /uL Lymph # (Auto) (3079-1832) /uL [place] # (Auto) (0-900) /uL Eos # (Auto) (0-450) /uL Baso # (Auto) (0-100) /uL PT (10.1-12.7) SECONDS INR (0.9-1.3) APTT (26.4-36.2) SECONDS VBG pH (7.33-7.43) VBG pCO2 (45-50) mmHg VBG pO2 (35-45) mmHg VBG HCO3 (23-28) mmol/L VBG Total CO2 (24-29) mmol/L VBG O2 Saturation (70-75) % VBG Base Excess (0-4) mmol/L Sodium (137-145) mmol/L Potassium (3.4-5.1) mmol/L Chloride (98-107) mmol/L Carbon Dioxide (22-32) mmol/L BUN (7-17) mg/dL Creatinine (0.52-1.04) mg/dL Estimated GFR (>60) mL/min BUN/Creatinine Ratio (6-22) Glucose (70-100) mg/dL Lactate (0.7-2.1) mmol/L Calcium (8.4-10.2) mg/dL Total Bilirubin (0.2-1.3) mg/dL Conjugated Bilirubin (0.0-0.3) md/dL Unconjugated Bilirubin (0.0-1.1) mg/dL AST (14-36) IU/L ALT (<35) IU/L Alkaline Phosphatase (38-126) U/L Total Protein (6.3-8.2) g/dL Albumin (3.5-5.0) g/dL Globulin (1.7-4.1) g/dL Albumin/Globulin Ratio (1.0-2.8) Lipase (23-300) U/L TSH (0.47-4.68) uIU/mL Urine Color Yellow Urine Appearance Clear Urine pH 6.0 (4.5-8.0) Ur Specific [place] 1.010 (1.000-1.035) Urine Protein Negative (Negative) Urine Glucose (UA) Negative (Negative) g/dL Urine Ketones Negative (NEGATIVE) Urine Occult Blood Negative (Negative) Urine Nitrate Negative (Negative) Urine Bilirubin Negative (NEGATIVE) Urine Urobilinogen 0.2 (0.2) E.U./dL Ur Leukocyte Esterase Negative (NEGATIVE) Urine RBC 0-1/hpf (0-5/HPF) Urine WBC None seen (0-5/HPF) Urine Bacteria None seen (None) Ur Culture Indicated? Cult not indicated Urine Test Negative (Negative) Salicylates (<20) mg/dL U Opiates 300ng/mL cut Negative (Negative) Ur Oxycodone Screen Negative (Negative) Urine Methadone Screen Negative (Negative) Acetaminophen (10-30) ug/mL Ur Barbiturates Screen Negative (Negative) U Tricyclic Antidepress Negative (Negative) Ur Phencyclidine Scrn Negative (Negative) Ur Amphetamines Screen Negative (Negative) U Methamphetamines Scrn Negative (Negative) Ur MDMA Scrn (Ecstasy) Negative (Negative) U Benzodiazepines Scrn Positive H (Negative) Urine Cocaine Screen Negative (Negative) U Marijuana (THC) Screen Negative (Negative) Ethyl Alcohol ( - 10) mg/dL COVID-19 PCR (Negative) 08/02/20 08/02/20 08/02/20 Range/Units 10:35 10:45 10:45 WBC 12.5 H (4.5-11.0) X10^3/uL RBC 4.36 (4.0-5.2) X10^6/uL Hgb 11.5 L (12.0-16.0) g/dL Hct 36.1 (36-46) % MCV 82.9 (80-100) fL MCH 26.4 (26-34) PG MCHC 31.8 (30-36) % RDW 15.9 H (11.6-14.8) % Plt Count 297 (150-400) X10^3/uL Neut % (Auto) 69.8 (50-75) % Lymph % (Auto) 21.6 L (25-40) % [place] % (Auto) 5.1 (3-14) % Eos % (Auto) 2.8 (2-4) % Baso % (Auto) 0.7 (0-2) % Neut # (Auto) 8700 H (5412-1734) /uL Lymph # (Auto) 2700 (1173-5214) /uL [place] # (Auto) 600 (0-900) /uL Eos # (Auto) 300 (0-450) /uL Baso # (Auto) 100 (0-100) /uL PT (10.1-12.7) SECONDS INR (0.9-1.3) APTT (26.4-36.2) SECONDS VBG pH (7.33-7.43) VBG pCO2 (45-50) mmHg VBG pO2 (35-45) mmHg VBG HCO3 (23-28) mmol/L VBG Total CO2 (24-29) mmol/L VBG O2 Saturation (70-75) % VBG Base Excess (0-4) mmol/L Sodium 139 (137-145) mmol/L Potassium 4.4 (3.4-5.1) mmol/L Chloride 100 (98-107) mmol/L Carbon Dioxide 33 H (22-32) mmol/L BUN 13 (7-17) mg/dL Creatinine 0.49 L (0.52-1.04) mg/dL Estimated GFR > 60.0 (>60) mL/min BUN/Creatinine Ratio 26.5 H (6-22) Glucose 106 H (70-100) mg/dL Lactate (0.7-2.1) mmol/L Calcium 9.0 (8.4-10.2) mg/dL Total Bilirubin (0.2-1.3) mg/dL Conjugated Bilirubin (0.0-0.3) md/dL Unconjugated Bilirubin (0.0-1.1) mg/dL AST (14-36) IU/L ALT (<35) IU/L Alkaline Phosphatase (38-126) U/L Total Protein (6.3-8.2) g/dL Albumin (3.5-5.0) g/dL Globulin (1.7-4.1) g/dL Albumin/Globulin Ratio (1.0-2.8) Lipase (23-300) U/L TSH (0.47-4.68) uIU/mL Urine Color Urine Appearance Urine pH (4.5-8.0) Ur Specific [place] (1.000-1.035) Urine Protein (Negative) Urine Glucose (UA) (Negative) g/dL Urine Ketones (NEGATIVE) Urine Occult Blood (Negative) Urine Nitrate (Negative) Urine Bilirubin (NEGATIVE) Urine Urobilinogen (0.2) E.U./dL Ur Leukocyte Esterase (NEGATIVE) Urine RBC (0-5/HPF) Urine WBC (0-5/HPF) Urine Bacteria (None) Ur Culture Indicated? Urine Test (Negative) Salicylates (<20) mg/dL U Opiates 300ng/mL cut (Negative) Ur Oxycodone Screen (Negative) Urine Methadone Screen (Negative) Acetaminophen < 10 L (10-30) ug/mL Ur Barbiturates Screen (Negative) U Tricyclic Antidepress (Negative) Ur Phencyclidine Scrn (Negative) Ur Amphetamines Screen (Negative) U Methamphetamines Scrn (Negative) Ur MDMA Scrn (Ecstasy) (Negative) U Benzodiazepines Scrn (Negative) Urine Cocaine Screen (Negative) U Marijuana (THC) Screen (Negative) Ethyl Alcohol ( - 10) mg/dL COVID-19 PCR Negative (Negative) 08/02/20 08/02/20 08/02/20 Range/Units 10:45 10:45 10:45 WBC (4.5-11.0) X10^3/uL RBC (4.0-5.2) X10^6/uL Hgb (12.0-16.0) g/dL Hct (36-46) % MCV (80-100) fL MCH (26-34) PG MCHC (30-36) % RDW (11.6-14.8) % Plt Count (150-400) X10^3/uL Neut % (Auto) (50-75) % Lymph % (Auto) (25-40) % [place] % (Auto) (3-14) % Eos % (Auto) (2-4) % Baso % (Auto) (0-2) % Neut # (Auto) (5224-3856) /uL Lymph # (Auto) (3312-1043) /uL [place] # (Auto) (0-900) /uL Eos # (Auto) (0-450) /uL Baso # (Auto) (0-100) /uL PT 11.9 (10.1-12.7) SECONDS INR 1.0 (0.9-1.3) APTT 25 L (26.4-36.2) SECONDS VBG pH (7.33-7.43) VBG pCO2 (45-50) mmHg VBG pO2 (35-45) mmHg VBG HCO3 (23-28) mmol/L VBG Total CO2 (24-29) mmol/L VBG O2 Saturation (70-75) % VBG Base Excess (0-4) mmol/L Sodium (137-145) mmol/L Potassium (3.4-5.1) mmol/L Chloride (98-107) mmol/L Carbon Dioxide (22-32) mmol/L BUN (7-17) mg/dL Creatinine (0.52-1.04) mg/dL Estimated GFR (>60) mL/min BUN/Creatinine Ratio (6-22) Glucose (70-100) mg/dL Lactate 1.4 (0.7-2.1) mmol/L Calcium (8.4-10.2) mg/dL Total Bilirubin 0.3 (0.2-1.3) mg/dL Conjugated Bilirubin 0.0 (0.0-0.3) md/dL Unconjugated Bilirubin 0.1 (0.0-1.1) mg/dL AST 28 (14-36) IU/L ALT 18 (<35) IU/L Alkaline Phosphatase 80 (38-126) U/L Total Protein 7.2 (6.3-8.2) g/dL Albumin 3.8 (3.5-5.0) g/dL Globulin 3.4 (1.7-4.1) g/dL Albumin/Globulin Ratio 1.1 (1.0-2.8) Lipase 32 (23-300) U/L TSH (0.47-4.68) uIU/mL Urine Color Urine Appearance Urine pH (4.5-8.0) Ur Specific [place] (1.000-1.035) Urine Protein (Negative) Urine Glucose (UA) (Negative) g/dL Urine Ketones (NEGATIVE) Urine Occult Blood (Negative) Urine Nitrate (Negative) Urine Bilirubin (NEGATIVE) Urine Urobilinogen (0.2) E.U./dL Ur Leukocyte Esterase (NEGATIVE) Urine RBC (0-5/HPF) Urine WBC (0-5/HPF) Urine Bacteria (None) Ur Culture Indicated? Urine Test (Negative) Salicylates 39.4 H* (<20) mg/dL U Opiates 300ng/mL cut (Negative) Ur Oxycodone Screen (Negative) Urine Methadone Screen (Negative) Acetaminophen (10-30) ug/mL Ur Barbiturates Screen (Negative) U Tricyclic Antidepress (Negative) Ur Phencyclidine Scrn (Negative) Ur Amphetamines Screen (Negative) U Methamphetamines Scrn (Negative) Ur MDMA Scrn (Ecstasy) (Negative) U Benzodiazepines Scrn (Negative) Urine Cocaine Screen (Negative) U Marijuana (THC) Screen (Negative) Ethyl Alcohol < 10 ( - 10) mg/dL COVID-19 PCR (Negative) 08/02/20 08/02/20 Range/Units 10:45 11:10 WBC (4.5-11.0) X10^3/uL RBC (4.0-5.2) X10^6/uL Hgb (12.0-16.0) g/dL Hct (36-46) % MCV (80-100) fL MCH (26-34) PG MCHC (30-36) % RDW (11.6-14.8) % Plt Count (150-400) X10^3/uL Neut % (Auto) (50-75) % Lymph % (Auto) (25-40) % [place] % (Auto) (3-14) % Eos % (Auto) (2-4) % Baso % (Auto) (0-2) % Neut # (Auto) (7235-1868) /uL Lymph # (Auto) (2571-4796) /uL [place] # (Auto) (0-900) /uL Eos # (Auto) (0-450) /uL Baso # (Auto) (0-100) /uL PT (10.1-12.7) SECONDS INR (0.9-1.3) APTT (26.4-36.2) SECONDS VBG pH 7.41 (7.33-7.43) VBG pCO2 51.9 H (45-50) mmHg VBG pO2 51 H (35-45) mmHg VBG HCO3 33 H (23-28) mmol/L VBG Total CO2 34 H (24-29) mmol/L VBG O2 Saturation 85 H (70-75) % VBG Base Excess 8.0 H (0-4) mmol/L Sodium (137-145) mmol/L Potassium (3.4-5.1) mmol/L Chloride (98-107) mmol/L Carbon Dioxide (22-32) mmol/L BUN (7-17) mg/dL Creatinine (0.52-1.04) mg/dL Estimated GFR (>60) mL/min BUN/Creatinine Ratio (6-22) Glucose (70-100) mg/dL Lactate (0.7-2.1) mmol/L Calcium (8.4-10.2) mg/dL Total Bilirubin (0.2-1.3) mg/dL Conjugated Bilirubin (0.0-0.3) md/dL Unconjugated Bilirubin (0.0-1.1) mg/dL AST (14-36) IU/L ALT (<35) IU/L Alkaline Phosphatase (38-126) U/L Total Protein (6.3-8.2) g/dL Albumin (3.5-5.0) g/dL Globulin (1.7-4.1) g/dL Albumin/Globulin Ratio (1.0-2.8) Lipase (23-300) U/L TSH 1.96 (0.47-4.68) uIU/mL Urine Color Urine Appearance Urine pH (4.5-8.0) Ur Specific [place] (1.000-1.035) Urine Protein (Negative) Urine Glucose (UA) (Negative) g/dL Urine Ketones (NEGATIVE) Urine Occult Blood (Negative) Urine Nitrate (Negative) Urine Bilirubin (NEGATIVE) Urine Urobilinogen (0.2) E.U./dL Ur Leukocyte Esterase (NEGATIVE) Urine RBC (0-5/HPF) Urine WBC (0-5/HPF) Urine Bacteria (None) Ur Culture Indicated? Urine Test (Negative) Salicylates (<20) mg/dL U Opiates 300ng/mL cut (Negative) Ur Oxycodone Screen (Negative) Urine Methadone Screen (Negative) Acetaminophen (10-30) ug/mL Ur Barbiturates Screen (Negative) U Tricyclic Antidepress (Negative) Ur Phencyclidine Scrn (Negative) Ur Amphetamines Screen (Negative) U Methamphetamines Scrn (Negative) Ur MDMA Scrn (Ecstasy) (Negative) U Benzodiazepines Scrn (Negative) Urine Cocaine Screen (Negative) U Marijuana (THC) Screen (Negative) Ethyl Alcohol ( - 10) mg/dL COVID-19 PCR (Negative) ECG Data Attestation: I personally reviewed and interpreted this ECG as follows: Prior ECG tracings: not available for review Interpretation: Sinus tachycardia Ventricular rate of 118 Normal axis Normal QRS Normal QTC No ST T wave changes MDM Narrative Medical decision making narrative: [place] [address] [place]. Given her weight today that is 240 milligrams/kilogram of aspirin. I did discuss the case with poison control. Given her aspirin level of 39 which was 9 hours after she reported taking it they do recommend starting sodium bicarb. Patient was started on 3 amps of sodium bicarb with 40 of potassium in D5W run at 250 mL per hour. They recommended checking aspirin levels every 2 hours into it peaks and then several hours afterwards showing a decline. They also than recommended continued bicarb until an aspirin levels less than 30. They then recommended checking an aspirin level 6 in 12 hours after stopping bicarb. Discussed the case with who is the patient's primary provider who will admit for further evaluation and treatment. Critical Care Time Critical Care Time Critical Care Time: Yes Total Critical Care Time: 35 Attestation: The high probability of a clinically significant, sudden or life threatening deterioration of the cardiovascular, respiratory, urinary, GI, neurologic system(s) required my full and direct attention, intervention and personal management. The aggregate critical care time was 35 minutes. This time is in addition to time spent performing reported procedures but includes the following: [X] Data Review and interpretation [X] Patient assessment and monitoring of vital signs [X] Documentation [x] Medication orders and management Discharge Plan Departure Patient Disposition: Admitted As Inpatient Clinical Impression: Aspirin overdose
[2020-08-02 10:41] LABS: UR Morphine/Opiate cutoff 300 Negative (Negative); Ur Creatinine Normal (Normal); Ur Specific Gravity Normal (Normal); Urine Amphetamines Negative (Negative); Urine Barbiturates Negative (Negative); Urine Benzodiazepines Positive (Negative); Urine Cocaine Negative (Negative); Urine MDMA Negative (Negative); Urine Methadone Negative (Negative); Urine Methamphetamines Negative (Negative); Urine Oxycodone Negative (Negative); Urine Phencyclidine Negative (Negative); Urine Tetrahydrocannabinol Negative (Negative); Urine Tricyclic Antidepressant Negative (Negative); Urine pH Normal (Normal)
[2020-08-02 10:48] LABS: Culture Indicated Urine Cult Not Indicated; RBC Urine 0-1/HPF (0-5/HPF)
[2020-08-02 11:02] LABS: Pregnancy Test Urine Negative (Negative)
[2020-08-02 11:07] LABS: Add Manual Diff / Slide Review NO; Basophils Absolute Auto 100 /uL (0-100); Basophils Percent Auto 0.7 % (0-2); Eosinophils Absolute Auto 300 /uL (0-450); Eosinophils Percent Auto 2.8 % (2-4); Hematocrit 36.1 % (36-46); Hemoglobin 11.5 g/dL (12.0-16.0); Lymphocytes Absolute Auto 2700 /uL (1100-4500); Lymphocytes Percent Auto 21.6 % (25-40); Mean Corpuscular HGB Conc 31.8 % (30-36); Mean Corpuscular Hemoglobin 26.4 PG (26-34); Mean Corpuscular Volume 82.9 fL (80-100); Monocytes Absolute Auto 600 /uL (0-900); Monocytes Percent Auto 5.1 % (3-14); Neutrophils Absolute Auto 8700 /uL (1500-7000); Neutrophils Percent Auto 69.8 % (50-75); Platelet Count 297 X10^3/uL (150-400); Prothrombin Time 11.9 SECONDS (10.1-12.7); Red Blood Cell Count 4.36 X10^6/uL (4.0-5.2); Red Cell Distribution Width 15.9 % (11.6-14.8); White Blood Cell Count 12.5 X10^3/uL (4.5-11.0)
[2020-08-02 11:10] LABS: PTT Partial Thromboplastin Tim 25 SECONDS (26.4-36.2)
[2020-08-02 11:13] LABS: Acetaminophen < 10 ug/mL (10-30); BUN Creatinine Ratio 26.5 (6-22); Blood Urea Nitrogen 13 mg/dL (7-17); Carbon Dioxide 33 mmol/L (22-32); Chloride 100 mmol/L (98-107); Estimated Glomerular Filt Rate > 60.0 mL/min (>60); Glucose 106 mg/dL (70-100); HEMOLYSIS 29 (0-50); Potassium 4.4 mmol/L (3.4-5.1); Sodium 139 mmol/L (137-145)
[2020-08-02] MEDS: ONDANSETRON 4 MG/2 ML INJ IV (11:13)
[2020-08-02] MEDS: SODIUM CHLORIDE 0.9% 1,000 ML 125 ML IV (11:13)
[2020-08-02 11:15] LABS: Alanine Aminotransferase 18 IU/L (<35); Albumin 3.8 g/dL (3.5-5.0); Albumin Globulin Ratio 1.1 (1.0-2.8); Alkaline Phosphatase 80 U/L (38-126); Aspartate Aminotransferase 28 IU/L (14-36); Bilirubin Total 0.3 mg/dL (0.2-1.3); Bilirubin Unconjugated 0.1 mg/dL (0.0-1.1); Ethanol (ETOH) < 10 mg/dL; Globulin 3.4 g/dL (1.7-4.1); HEMOLYSIS 28 (0-50); Lactate (Lactic Acid) 1.4 mmol/L (0.7-2.1); Lipase 32 U/L (23-300); Total Protein 7.2 g/dL (6.3-8.2)
[2020-08-02 11:17] LABS: COVID19 -Nasal RAPID Negative (Negative)
[2020-08-02 11:18] LABS: HCO3 VBG 33 mmol/L (23-28); PCO2 VBG 51.9 mmHg (45-50); PO2 VBG 51 mmHg (35-45); Total CO2 VBG 34 mmol/L (24-29); pH VBG 7.41 (7.33-7.43)
[2020-08-02 11:19] LABS: Oxygen Saturation VBG 85 % (70-75)
[2020-08-02 11:34] LABS: Salicylate 39.4 mg/dL (<20)
[2020-08-02 11:44] LABS: Thyroid Stimulating Hormone 1.96 uIU/mL (0.47-4.68)
[2020-08-02] MEDS: SODIUM BICARB 8.4% VIAL 150 MEQ, POTASSIUM CHLORIDE 40 MEQ in DEXTROSE 5% WATER 1,000 ML 250 MEQ IV ×3 (12:29→22:32)
--- NOTE | 2020-08-02 14:23 | P.HP_ITS ---
History of Present Illness History of Present Illness Date Patient Seen: 08/02/20 Time Patient Seen: 13:00 Chief complaint: Overdose/Suicidal Ideation Narrative: Pt is a 40yo woman with HTN, asthma, severe depression and anxiety with panic attacks and agoraphobia, IBS, and gastroparesis who presents after suicide attempt with Aspirin. The pt reports that she has been feeling very overwhelmed at home. Her daughter has dropped out of school. Her son is having a lot of difficulty with at-home learning. She has been feeling the stress building and building, and last night reached her breaking point. She was crying most of the day yesterday, and attempted to get in touch with her therapist, but was scheduled for today. She cannot identify any other specific triggers, but around 1:30am decided that she wanted to just sleep and not deal with it all anymore. She did write a note to her family on her phone, and then opened a new bottle of enteric coated 325mg aspirin and took all 100 tablets. The pt then went to sleep. In the morning, she woke to her caregiver ringing the reyna at her house. She recalls feeling disappointed that she was alive when she woke. EMS was immediately called after the pt told her what she had done. The pt reports that currently she is still having thoughts of self-harm, but would not intend to act on them. She has attempted suicide in the past, but not in over 10 years. Her daughter has also been cutting recently, which has been a trigger for the pt. She denies any other intake including alcohol or other medications/drugs. Patient History Medical History (Updated 08/02/20 @ 17:31 by AZAR Desai) Abnormal Pap smear of cervix Agoraphobia Anal fissure (01/24/12) Anemia Anxiety Asthma Asthma with allergic rhinitis BRCA negative Bursitis of left hip Chronic back pain Chronic cough Chronic headaches Corneal pigmentation of both eyes Depression Endometriosis Essential (primary) hypertension Fibromyalgia Frequent UTI Gastric ulcer Gastroparesis GERD (gastroesophageal reflux disease) GI bleeding Hayfever Hearing loss Hemorrhoids History of heavy periods History of partial hysterectomy (01/04/16) History of recurrent ear infection History of tilt table evaluation (05/02/15) IBS (irritable bowel syndrome) Interstitial cystitis Irregular periods/menstrual cycles Kidney infection (2002) Migraines MRSA infection Ovarian cyst Painful menstrual periods Panic attacks Partial blindness PTSD (post-traumatic stress disorder) PUD (peptic ulcer disease) Recurrent sinusitis Rheumatoid arthritis Scoliosis Tachycardia Tinnitus Vaginal delivery Vertigo Surgical History Anesthesia complication History of bladder surgery (02/2001) History of bladder suspension procedure (06/14/13) History of colonoscopy (01/10/15) History of endoscopy (05/04/07) History of endoscopy (01/10/15) History of hip surgery (12/13/92) History of rectal surgery (01/24/12) History of third molar tooth extraction (1997) Status post appendectomy (08/1996) Status post dilation and curettage (10/2009) Status post hysterectomy (05/07/10) Status post laparoscopic cholecystectomy (03/11/06) Status post laparoscopy (1999) Status post laparoscopy (05/04/07) Family & Social History Family History Brother Age: 44 Back pain Brother Age: 43 Migraines Child Age: 17 Mental health problem Child Age: 16 Asperger syndrome Father Age: 67 Anger Mother Age: 61 Hypothyroidism Anxiety Stroke Sister Age: 44 Thyroid cancer Brain tumor Grandfather No problems noted. Grandmother Brain tumor Grandfather No problems noted. Grandmother Ovarian cancer Social History: household members family lives independently Yes caregiver/support person Yes Safety & Behavioral: Feels Safe in Current Yes Environment Been Physically Hurt or No Threatened By a Person Suicidal Ideation Description None Suicide Plan Description No Plan Tobacco & Substance use: Smoking Status Never smoker alcohol intake never alcohol intake frequency 0-2 drinks per day Substance Use Type does not use Meds Home Medications and Allergies Home Medications Medication Instructions Recorded Confirmed Type albuterol sulfate 90 mcg/actuation 2 puff INHALATION Q4-6H PRN 03/31/18 08/02/20 History aerosol inhaler fluticasone furoate 200 1 inhalation INHALATION BEDTIME 05/06/18 08/02/20 Rx mcg-vilanterol 25 mcg/dose #60 each inhalation powder dihydroergotamine 1 mg/mL 1 mg SUBCUT Q8H PRN #10 amp 02/18/19 08/02/20 Rx injection solution dupilumab 300 mg/2 mL subcutaneous 300 mg SUBCUT QWEEK 04/15/19 08/02/20 History syringe pilocarpine HCl 4 % eye drops See Rx Instructions .ROUTE 06/08/19 08/02/20 Rx .COMPLEX #15 ml umeclidinium [Incruse Ellipta] 1 inh INHALATION DAILY 10/29/19 08/02/20 History prazosin 1 mg capsule 3 mg PO BEDTIME #270 cap 11/17/19 08/02/20 Rx gabapentin 300 mg capsule 300 mg PO DAILY #90 cap MDD 1500mg 12/16/19 08/02/20 Rx gabapentin 600 mg tablet 600 mg PO BID #180 tab MDD 1500 mg 12/16/19 08/02/20 Rx montelukast 10 mg tablet 10 mg PO BEDTIME #90 tab 01/18/20 08/02/20 Rx clindamycin phosphate 1 % topical 1 applictn TOP BID #60 gram 05/01/20 08/02/20 Rx gel diazepam 5 mg tablet 5 mg PO TID #90 tab 05/01/20 08/02/20 Rx levalbuterol HCl 1.25 mg/3 mL 1.25 mg INHALATION Q4-6H PRN 05/01/20 08/02/20 History solution for nebulization lidocaine 5 % topical ointment 1 applic TOPICAL BID PRN #50 gram 05/01/20 08/02/20 Rx triamcinolone acetonide 0.5 % 1 applictn TOP BID #15 gram 05/01/20 08/02/20 Rx topical cream vortioxetine 20 mg tablet 20 mg PO DAILY #90 tab 06/06/20 08/02/20 Rx lamotrigine 150 mg tablet 150 mg PO DAILY #90 tab 07/18/20 08/02/20 Rx ondansetron 8 mg disintegrating 8 mg PO Q8H PRN #90 tab 07/25/20 08/02/20 Rx tablet hydroxyzine HCl 50 mg tablet 50 mg PO TID PRN #180 tab 07/27/20 08/02/20 Rx baclofen 40 mg PO BEDTIME 08/02/20 08/02/20 History cholecalciferol (vitamin D3) 100 2,000 unit PO BID #180 cap 08/02/20 08/02/20 Rx mcg (4,000 unit) capsule lisinopril 20 mg PO DAILY 08/02/20 08/02/20 History magnesium oxide 1,000 mg PO BEDTIME 08/02/20 08/02/20 History omeprazole 40 mg PO DAILY 08/02/20 08/02/20 History Allergies Allergy/AdvReac Type Severity Reaction Status Date / Time bupropion [BUPROPION] Allergy Mild facial rash Verified 05/01/20 15:43 hydrocodone [HYDROCODONE] Allergy Mild rash Verified 05/01/20 15:43 iodine [IODINE] Allergy Mild edema Verified 05/01/20 15:43 Exam Vital Signs (past 8 hours): - 08/02/20 10:16 08/02/20 11:01 08/02/20 12:00 Temperature 98.4 F Pulse Rate 114 H 106 H 104 H Respiratory Rate 24 15 15 Blood Pressure 142/66 H 122/60 Pulse Oximetry 94 92 92 08/02/20 12:01 08/02/20 12:30 08/02/20 12:32 Temperature Pulse Rate 105 H 114 H 113 H Respiratory Rate 15 21 19 Blood Pressure 141/60 H 139/65 Pulse Oximetry 92 94 93 08/02/20 13:00 08/02/20 13:01 08/02/20 13:30 Temperature Pulse Rate 111 H 113 H 108 H Respiratory Rate 23 26 H 18 Blood Pressure 144/68 H Pulse Oximetry 94 94 94 08/02/20 13:31 08/02/20 13:38 08/02/20 14:10 Temperature 98.5 F Pulse Rate 109 H 106 H 109 H Respiratory Rate 18 24 28 H Blood Pressure 135/62 135/62 143/84 H Pulse Oximetry 93 95 95 08/02/20 14:15 Temperature Pulse Rate Respiratory Rate Blood Pressure Pulse Oximetry 95 Oxygen Delivery Method Room Air Oxygen Flow Rate 0 Narrative Exam Narrative: Gen: NAD, laying comfortably in bed HEENT: sclera clear Neck: no LAD, no JVD CV: tachycardic, normal rhythm, no murmurs Resp: clear to auscultation bilaterally, no wheezes or crackles, slightly tachycardic but no Kussmaul breathing Abd: soft, nondistended, mild tenderness epigastric region without rebound/guarding/rigidity Ext: trace edema Skin: moist under panus and foul-smelling Objective Labs Result Diagrams: 08/02/20 10:45 08/02/20 17:15 Labs: Laboratory Results - last 24 hr 08/02/20 08/02/20 08/02/20 10:10 10:10 10:10 WBC RBC Hgb Hct MCV MCH MCHC RDW Plt Count Neut % (Auto) Lymph % (Auto) [place] % (Auto) Eos % (Auto) Baso % (Auto) Neut # (Auto) Lymph # (Auto) [place] # (Auto) Eos # (Auto) Baso # (Auto) PT INR APTT VBG pH VBG pCO2 VBG pO2 VBG HCO3 VBG Total CO2 VBG O2 Saturation VBG Base Excess Sodium Potassium Chloride Carbon Dioxide BUN Creatinine Estimated GFR BUN/Creatinine Ratio Glucose Lactate Calcium Total Bilirubin Conjugated Bilirubin Unconjugated Bilirubin AST ALT Alkaline Phosphatase Total Protein Albumin Globulin Albumin/Globulin Ratio Lipase TSH Urine Color Yellow Urine Appearance Clear Urine pH 6.0 Ur Specific [place] 1.010 Urine Protein Negative Urine Glucose (UA) Negative Urine Ketones Negative Urine Occult Blood Negative Urine Nitrate Negative Urine Bilirubin Negative Urine Urobilinogen 0.2 Ur Leukocyte Esterase Negative Urine RBC 0-1/hpf Urine WBC None seen Urine Bacteria None seen Ur Culture Indicated? Cult not indicated Urine Test Negative Salicylates U Opiates 300ng/mL cut Negative Ur Oxycodone Screen Negative Urine Methadone Screen Negative Acetaminophen Ur Barbiturates Screen Negative U Tricyclic Antidepress Negative Ur Phencyclidine Scrn Negative Ur Amphetamines Screen Negative U Methamphetamines Scrn Negative Ur MDMA Scrn (Ecstasy) Negative U Benzodiazepines Scrn Positive H Urine Cocaine Screen Negative U Marijuana (THC) Screen Negative Ethyl Alcohol COVID-19 PCR 08/02/20 08/02/20 08/02/20 10:35 10:45 10:45 WBC 12.5 H RBC 4.36 Hgb 11.5 L Hct 36.1 MCV 82.9 MCH 26.4 MCHC 31.8 RDW 15.9 H Plt Count 297 Neut % (Auto) 69.8 Lymph % (Auto) 21.6 L [place] % (Auto) 5.1 Eos % (Auto) 2.8 Baso % (Auto) 0.7 Neut # (Auto) 8700 H Lymph # (Auto) 2700 [place] # (Auto) 600 Eos # (Auto) 300 Baso # (Auto) 100 PT INR APTT VBG pH VBG pCO2 VBG pO2 VBG HCO3 VBG Total CO2 VBG O2 Saturation VBG Base Excess Sodium 139 Potassium 4.4 Chloride 100 Carbon Dioxide 33 H BUN 13 Creatinine 0.49 L Estimated GFR > 60.0 BUN/Creatinine Ratio 26.5 H Glucose 106 H Lactate Calcium 9.0 Total Bilirubin Conjugated Bilirubin Unconjugated Bilirubin AST ALT Alkaline Phosphatase Total Protein Albumin Globulin Albumin/Globulin Ratio Lipase TSH Urine Color Urine Appearance Urine pH Ur Specific [place] Urine Protein Urine Glucose (UA) Urine Ketones Urine Occult Blood Urine Nitrate Urine Bilirubin Urine Urobilinogen Ur Leukocyte Esterase Urine RBC Urine WBC Urine Bacteria Ur Culture Indicated? Urine Test Salicylates U Opiates 300ng/mL cut Ur Oxycodone Screen Urine Methadone Screen Acetaminophen < 10 L Ur Barbiturates Screen U Tricyclic Antidepress Ur Phencyclidine Scrn Ur Amphetamines Screen U Methamphetamines Scrn Ur MDMA Scrn (Ecstasy) U Benzodiazepines Scrn Urine Cocaine Screen U Marijuana (THC) Screen Ethyl Alcohol COVID-19 PCR Negative 08/02/20 08/02/20 08/02/20 10:45 10:45 10:45 WBC RBC Hgb Hct MCV MCH MCHC RDW Plt Count Neut % (Auto) Lymph % (Auto) [place] % (Auto) Eos % (Auto) Baso % (Auto) Neut # (Auto) Lymph # (Auto) [place] # (Auto) Eos # (Auto) Baso # (Auto) PT 11.9 INR 1.0 APTT 25 L VBG pH VBG pCO2 VBG pO2 VBG HCO3 VBG Total CO2 VBG O2 Saturation VBG Base Excess Sodium Potassium Chloride Carbon Dioxide BUN Creatinine Estimated GFR BUN/Creatinine Ratio Glucose Lactate 1.4 Calcium Total Bilirubin 0.3 Conjugated Bilirubin 0.0 Unconjugated Bilirubin 0.1 AST 28 ALT 18 Alkaline Phosphatase 80 Total Protein 7.2 Albumin 3.8 Globulin 3.4 Albumin/Globulin Ratio 1.1 Lipase 32 TSH Urine Color Urine Appearance Urine pH Ur Specific [place] Urine Protein Urine Glucose (UA) Urine Ketones Urine Occult Blood Urine Nitrate Urine Bilirubin Urine Urobilinogen Ur Leukocyte Esterase Urine RBC Urine WBC Urine Bacteria Ur Culture Indicated? Urine Test Salicylates 39.4 H* U Opiates 300ng/mL cut Ur Oxycodone Screen Urine Methadone Screen Acetaminophen Ur Barbiturates Screen U Tricyclic Antidepress Ur Phencyclidine Scrn Ur Amphetamines Screen U Methamphetamines Scrn Ur MDMA Scrn (Ecstasy) U Benzodiazepines Scrn Urine Cocaine Screen U Marijuana (THC) Screen Ethyl Alcohol < 10 COVID-19 PCR 08/02/20 08/02/20 10:45 11:10 WBC RBC Hgb Hct MCV MCH MCHC RDW Plt Count Neut % (Auto) Lymph % (Auto) [place] % (Auto) Eos % (Auto) Baso % (Auto) Neut # (Auto) Lymph # (Auto) [place] # (Auto) Eos # (Auto) Baso # (Auto) PT INR APTT VBG pH 7.41 VBG pCO2 51.9 H VBG pO2 51 H VBG HCO3 33 H VBG Total CO2 34 H VBG O2 Saturation 85 H VBG Base Excess 8.0 H Sodium Potassium Chloride Carbon Dioxide BUN Creatinine Estimated GFR BUN/Creatinine Ratio Glucose Lactate Calcium Total Bilirubin Conjugated Bilirubin Unconjugated Bilirubin AST ALT Alkaline Phosphatase Total Protein Albumin Globulin Albumin/Globulin Ratio Lipase TSH 1.96 Urine Color Urine Appearance Urine pH Ur Specific [place] Urine Protein Urine Glucose (UA) Urine Ketones Urine Occult Blood Urine Nitrate Urine Bilirubin Urine Urobilinogen Ur Leukocyte Esterase Urine RBC Urine WBC Urine Bacteria Ur Culture Indicated? Urine Test Salicylates U Opiates 300ng/mL cut Ur Oxycodone Screen Urine Methadone Screen Acetaminophen Ur Barbiturates Screen U Tricyclic Antidepress Ur Phencyclidine Scrn Ur Amphetamines Screen U Methamphetamines Scrn Ur MDMA Scrn (Ecstasy) U Benzodiazepines Scrn Urine Cocaine Screen U Marijuana (THC) Screen Ethyl Alcohol COVID-19 PCR Assessment & Plan Assessment & Plan narrative: Pt is a 40yo woman with HTN, asthma, severe depression and anxiety with panic attacks and agoraphobia, IBS, and gastroparesis who presents after intentional aspirin overdose, taking 100 tablets. Pt is currently stable, however salicylate level is significantly elevated at 39.4. 1) Salicyclate poisoning: Poison control contacted from the ED. Will follow their recommendations. - 150meq (3amps) sodiume bicarbonate and 40meq KCl in 1L D5W at twice maintenance (250cc/hr) - Check salicylate q2hrs until level it peaks and then is consistently downward trending and < 30mg/dL, then can stop sodium bicarb infusion - Check level 6 and 12 hours after stopping to ensure no rise - Check potassium level with each salicylate check to keep level > 4.0 - Check electrolytes and VBG every 2 hrs. Goal VpH 7.45-7.5 to prevent hypocalcemia - Frequent monitoring for pulmonary edema, fluid status, neurological status 2) Depression and anxiety: Pt with known severe depression. This appears to have been very intentional overdose, with ongoing suicidal ideation - Suicide precautions with constant monitor - Social work consulted. Believe pt would likely benefit from inpatient hospitalization, however this is complicated by having children at home, etc. - Continue current home medications of Ringo, Trintellix, Gabapentin, Hydroxyzine, and Diazepam - Psychiatry aware of hospitalization 3) Hypertension: BP currently stable - Continue home Lisinopril 4) Asthma: Stable respiratory status - Continue home Incruse, Breo Ellipta, Albuterol PRN 5) Chronic back pain: - Continue home Baclofen 6) Yeast rash: Under pannus - Topical nystatin FEN: General diet DVT ppx: SCDs Code: Full code Dispo: Pending stabilization and normalization of salicylate level. Anticipate at least 2 midnights. Will potentially require placement at in psychiatry.
--- NOTE | 2020-08-02 14:56 | PC.NURSE ---
Admit Note Pt admitted to room 231 from ER at 1410, walked from stretcher to room SBA. Steady on feet. Alert and oriented x3. Denies any suicidal ideation at this time, denies feeling like harming herself. One to one observation in place for safety and per MD order. Cell phone with patient, clothing with patient. D5 with bicarb and KCl infusing at 250 ml/hr per poison control recommendations and MD order. Oriented to room and to call light/bed controls. Call light within reach. ST in the 110s to 120s.
[2020-08-02] MEDS: diazePAM 5 MG TABLET PO ×2 (15:21→21:51)
[2020-08-02] MEDS: ACETAMINOPHEN 325 MG TABLET 650 MG PO (15:21)
[2020-08-02 15:42] LABS: BUN Creatinine Ratio 28.6 (6-22); Blood Urea Nitrogen 14 mg/dL (7-17); Calcium 8.6 mg/dL (8.4-10.2); Carbon Dioxide 32 mmol/L (22-32); Chloride 101 mmol/L (98-107); Estimated Glomerular Filt Rate > 60.0 mL/min (>60); Glucose 150 mg/dL (70-100); HEMOLYSIS 20 (0-50); Potassium 4.1 mmol/L (3.4-5.1); Sodium 138 mmol/L (137-145)
[2020-08-02 15:48] LABS: Salicylate 38.5 mg/dL (<20)
--- NOTE | 2020-08-02 15:58 | PC.NURSE ---
Addendum entered by Amparo Gagnon R.N. 08/02/20 20:35: Alert and oriented x3. Denies any suicidal ideation at this time, denies feeling like harming herself, however admits to attempting to harm self due to feeling overwhelmed. One to one observation in place for safety and per MD order. D5 with bicarb and KCl infusing at 250 ml/hr per poison control recommendations and MD order, Q2hr VBG, BMP and Salicylate levels, verbal orders to d/c D5/bicarb/KCL when salicylate levels are below 30. 2L NC for desaturation during sleep. HR is ST 105-120's, bed low and locked, call light within reach, will continue to treat and monitor as ordered until report is given to oncoming [facility] shift nurse. Addendum entered by Amparo Gagnon R.N. 08/02/20 20:13: 1749 Salicylate levels at 46.7 critical lab, Dr Everett notified , no new orders at this time. 1750 Pt removed IV by accident, replaced into L hand Original Note: Evening shift note: Critical lab notification from [place]yler in the lab salicylate of 38.5 at 1311.
[2020-08-02 16:42] LABS: HCO3 VBG 32 mmol/L (23-28); Oxygen Saturation VBG 98 % (70-75); PCO2 VBG 31.4 mmHg (45-50); PO2 VBG 92 mmHg (35-45); Total CO2 VBG 32 mmol/L (24-29); pH VBG 7.61 (7.33-7.43)
[2020-08-02 17:33] LABS: BUN Creatinine Ratio 27.8 (6-22); Blood Urea Nitrogen 15 mg/dL (7-17); Calcium 8.9 mg/dL (8.4-10.2); Carbon Dioxide 32 mmol/L (22-32); Chloride 100 mmol/L (98-107); Estimated Glomerular Filt Rate > 60.0 mL/min (>60); Glucose 123 mg/dL (70-100); HEMOLYSIS < 15 (0-50); Potassium 4.1 mmol/L (3.4-5.1); Sodium 140 mmol/L (137-145)
[2020-08-02 17:42] LABS: Salicylate 46.7 mg/dL (<20)
[2020-08-02 18:52] LABS: HCO3 VBG 5 mmol/L (23-28); PCO2 VBG 5.6 mmHg (45-50); PO2 VBG 30 mmHg (35-45); Total CO2 VBG 6 mmol/L (24-29); pH VBG 7.59 (7.33-7.43)
[2020-08-02 18:53] LABS: Oxygen Saturation VBG 74 % (70-75)
[2020-08-02 19:46] LABS: HCO3 VBG 31 mmol/L (23-28); Oxygen Saturation VBG 96 % (70-75); PCO2 VBG 46.5 mmHg (45-50); PO2 VBG 80 mmHg (35-45); Total CO2 VBG 33 mmol/L (24-29); pH VBG 7.44 (7.33-7.43)
[2020-08-02 19:56] LABS: BUN Creatinine Ratio 24.2 (6-22); Blood Urea Nitrogen 15 mg/dL (7-17); Calcium 8.9 mg/dL (8.4-10.2); Carbon Dioxide 33 mmol/L (22-32); Chloride 100 mmol/L (98-107); Estimated Glomerular Filt Rate > 60.0 mL/min (>60); Glucose 110 mg/dL (70-100); HEMOLYSIS < 15 (0-50); Sodium 141 mmol/L (137-145)
[2020-08-02 20:06] LABS: Salicylate 51.2 mg/dL (<20)
[2020-08-02] MEDS: PRAZOSIN 1 MG CAPSULE 3 MG PO (21:30)
[2020-08-02] MEDS: TRIAMCINOLONE 0.1% CREAM 15 GM 1 APPLIC TOP (21:30)
[2020-08-02 21:36] LABS: HCO3 VBG 33 mmol/L (23-28); Oxygen Saturation VBG 99 % (70-75); PCO2 VBG 38.7 mmHg (45-50); PO2 VBG 129 mmHg (35-45); Total CO2 VBG 34 mmol/L (24-29); pH VBG 7.54 (7.33-7.43)
[2020-08-02 21:48] LABS: BUN Creatinine Ratio 23.4 (6-22); Blood Urea Nitrogen 15 mg/dL (7-17); Calcium 8.8 mg/dL (8.4-10.2); Carbon Dioxide 34 mmol/L (22-32); Chloride 99 mmol/L (98-107); Estimated Glomerular Filt Rate > 60.0 mL/min (>60); Glucose 117 mg/dL (70-100); HEMOLYSIS < 15 (0-50); Sodium 140 mmol/L (137-145)
[2020-08-02 21:50] LABS: Salicylate 55.6 mg/dL (<20)
[2020-08-02] MEDS: GABAPENTIN 600 MG TABLET PO (21:51)
[2020-08-02] MEDS: PANTOPRAZOLE 40 MG TABLET PO (21:51)
[2020-08-02] MEDS: MONTELUKAST 10 MG TABLET PO (21:51)
[2020-08-02] MEDS: BACLOFEN 10 MG TABLET 40 MG PO (21:51)
[2020-08-02] MEDS: NYSTATIN POWDER 15GM 1 APPLIC TOP (21:52)
[2020-08-02 23:36] LABS: PCO2 VBG 50.1 mmHg (45-50); PO2 VBG 65 mmHg (35-45); pH VBG 7.44 (7.33-7.43)
[2020-08-02 23:37] LABS: HCO3 VBG 34 mmol/L (23-28); Oxygen Saturation VBG 93 % (70-75); Total CO2 VBG 36 mmol/L (24-29)
[2020-08-02 23:46] LABS: BUN Creatinine Ratio 22.6 (6-22); Blood Urea Nitrogen 14 mg/dL (7-17); Calcium 8.3 mg/dL (8.4-10.2); Carbon Dioxide 38 mmol/L (22-32); Chloride 100 mmol/L (98-107); Estimated Glomerular Filt Rate > 60.0 mL/min (>60); Glucose 122 mg/dL (70-100); HEMOLYSIS < 15 (0-50); Potassium 3.8 mmol/L (3.4-5.1); Sodium 139 mmol/L (137-145)
[2020-08-02 23:51] LABS: Salicylate 48.1 mg/dL (<20)
[2020-08-03] VITALS (12 sets, daily range): BP systolic 117–131; BP diastolic 50–66; PULSE 104–126; RESP 18–28; TEMP 36.7–37.2; O2SAT 90–97
[2020-08-03] MEDS: ACTIVATED CHARCOAL 50 GM/240 ML PO ×3 (00:33→08:55)
[2020-08-03 01:28] LABS: BUN Creatinine Ratio 23.1 (6-22); Blood Urea Nitrogen 15 mg/dL (7-17); Calcium 8.2 mg/dL (8.4-10.2); Carbon Dioxide 35 mmol/L (22-32); Chloride 98 mmol/L (98-107); Estimated Glomerular Filt Rate > 60.0 mL/min (>60); Glucose 191 mg/dL (70-100); HEMOLYSIS < 15 (0-50); Potassium 3.5 mmol/L (3.4-5.1); Sodium 138 mmol/L (137-145)
[2020-08-03 01:37] LABS: Salicylate 46.5 mg/dL (<20)
[2020-08-03 03:15] LABS: HCO3 VBG 35 mmol/L (23-28); Oxygen Saturation VBG 93 % (70-75); PCO2 VBG 51.6 mmHg (45-50); PO2 VBG 67 mmHg (35-45); Total CO2 VBG 37 mmol/L (24-29); pH VBG 7.44 (7.33-7.43)
[2020-08-03] MEDS: SODIUM BICARB 8.4% VIAL 150 MEQ, POTASSIUM CHLORIDE 40 MEQ in DEXTROSE 5% WATER 1,000 ML 250 MEQ IV ×2 (03:22→08:57)
[2020-08-03 03:25] LABS: BUN Creatinine Ratio 24.6 (6-22); Blood Urea Nitrogen 15 mg/dL (7-17); Calcium 8.3 mg/dL (8.4-10.2); Carbon Dioxide 38 mmol/L (22-32); Chloride 98 mmol/L (98-107); Estimated Glomerular Filt Rate > 60.0 mL/min (>60); Glucose 148 mg/dL (70-100); HEMOLYSIS < 15 (0-50); Potassium 3.8 mmol/L (3.4-5.1); Sodium 139 mmol/L (137-145)
[2020-08-03 05:14] LABS: PCO2 VBG 51.7 mmHg (45-50); PO2 VBG 63 mmHg (35-45); pH VBG 7.43 (7.33-7.43)
[2020-08-03 05:15] LABS: HCO3 VBG 34 mmol/L (23-28); Oxygen Saturation VBG 92 % (70-75); Total CO2 VBG 36 mmol/L (24-29)
[2020-08-03 05:23] LABS: Blood Urea Nitrogen 14 mg/dL (7-17); Carbon Dioxide 37 mmol/L (22-32); Chloride 98 mmol/L (98-107); Estimated Glomerular Filt Rate > 60.0 mL/min (>60); Glucose 172 mg/dL (70-100); HEMOLYSIS < 15 (0-50); Potassium 3.5 mmol/L (3.4-5.1); Sodium 139 mmol/L (137-145)
[2020-08-03 05:26] LABS: Salicylate 40.7 mg/dL (<20)
[2020-08-03] MEDS: POTASSIUM CHLORIDE 20 MEQ TAB 40 MEQ PO (06:13)
[2020-08-03] MEDS: ACETAMINOPHEN 325 MG TABLET 650 MG PO (06:13)
[2020-08-03] MEDS: ONDANSETRON 4 MG ODT 8 MG PO (06:17)
--- NOTE | 2020-08-03 06:28 | PC.NURSE ---
Addendum entered by Carole Thakkar R.N. 08/03/20 06:53: Patient with significant snoring/sleep apnea during the shift. Attempted to place patient on 2L NC, however, patient removed oxygen. Head of the bed attempted to be maintained at >30 degrees. Original Note: drop clipper note: Poison control called this RN at ~2345 advised patient take 4 doses, [id number] of activated charcoal. Dr. Everett notified at 6673, and orders received. Patient with small amount of emesis after first administration. Patient received second dose this AM with no vomiting. Patient has remained AOx3 throughout shift, and has ambulated to restroom multiple times. Patient has been tachycardic with HR in 120s-130 and tachypnic with RR 20-30s, however, on RA. Patient complains of headache 8/10 - medicated with PRN Tylenol this AM, nausea and tinnitus. Poison control notified of findings when they called back ~ 0625 this AM. D5 HCO3 + 40 meq KCL @250 mL/hr continues with VBGs/salicylate/electrolyte levels monitored q2 hours. Patient currently sleeping, remains 1:1 observation for suicide precautions.
[2020-08-03 07:15] LABS: BUN Creatinine Ratio 22.4 (6-22); Blood Urea Nitrogen 13 mg/dL (7-17); Calcium 7.9 mg/dL (8.4-10.2); Carbon Dioxide 39 mmol/L (22-32); Chloride 97 mmol/L (98-107); Estimated Glomerular Filt Rate > 60.0 mL/min (>60); Glucose 181 mg/dL (70-100); HEMOLYSIS < 15 (0-50); Potassium 3.3 mmol/L (3.4-5.1); Sodium 139 mmol/L (137-145)
[2020-08-03 07:23] LABS: Salicylate 38.2 mg/dL (<20)
--- NOTE | 2020-08-03 07:37 | P.PN_ITS ---
Subjective Subjective Date Patient Seen: 08/03/20 Time Patient Seen: 08:24 Interval history: The pt reports that she is feeling better this morning. She denies any further suicidal thoughts. She is up eating breakfast this morning. She states that her mild abdominal pain is improved. Her throat is now sore due to receiving activated charcoal last night. Exam Vital Signs (past 8 hours): - 08/03/20 00:00 08/03/20 00:03 08/03/20 04:00 Temperature 98.1 F 98.4 F Pulse Rate 122 H 126 H Respiratory Rate 28 H 25 H Blood Pressure 120/50 L 118/57 L Pulse Oximetry 95 95 93 Oxygen Delivery Method Room Air Oxygen Flow Rate 2 Narrative Exam Narrative: Gen: NAD, sitting comfortably in chair CV: tachycardic, normal rhythm, no murmurs Resp: clear to auscultation bilaterally, no wheezes or crackles, breathing comfortably Abd: soft, nondistended, nontender Ext: trace edema Objective Labs Result Diagrams: 08/02/20 10:45 08/03/20 06:55 Labs: Laboratory Results - last 24 hr 08/02/20 08/02/20 08/02/20 10:10 10:10 10:10 WBC RBC Hgb Hct MCV MCH MCHC RDW Plt Count Neut % (Auto) Lymph % (Auto) [place] % (Auto) Eos % (Auto) Baso % (Auto) Neut # (Auto) Lymph # (Auto) [place] # (Auto) Eos # (Auto) Baso # (Auto) PT INR APTT VBG pH VBG pCO2 VBG pO2 VBG HCO3 VBG Total CO2 VBG O2 Saturation VBG Base Excess Sodium Potassium Chloride Carbon Dioxide BUN Creatinine Estimated GFR BUN/Creatinine Ratio Glucose Lactate Calcium Total Bilirubin Conjugated Bilirubin Unconjugated Bilirubin AST ALT Alkaline Phosphatase Total Protein Albumin Globulin Albumin/Globulin Ratio Lipase TSH Urine Color Yellow Urine Appearance Clear Urine pH 6.0 Ur Specific [place] 1.010 Urine Protein Negative Urine Glucose (UA) Negative Urine Ketones Negative Urine Occult Blood Negative Urine Nitrate Negative Urine Bilirubin Negative Urine Urobilinogen 0.2 Ur Leukocyte Esterase Negative Urine RBC 0-1/hpf Urine WBC None seen Urine Bacteria None seen Ur Culture Indicated? Cult not indicated Urine Test Negative Nasal Screen MRSA (PCR) Salicylates U Opiates 300ng/mL cut Negative Ur Oxycodone Screen Negative Urine Methadone Screen Negative Acetaminophen Ur Barbiturates Screen Negative U Tricyclic Antidepress Negative Ur Phencyclidine Scrn Negative Ur Amphetamines Screen Negative U Methamphetamines Scrn Negative Ur MDMA Scrn (Ecstasy) Negative U Benzodiazepines Scrn Positive H Urine Cocaine Screen Negative U Marijuana (THC) Screen Negative Ethyl Alcohol COVID-19 PCR 08/02/20 08/02/20 08/02/20 10:35 10:45 10:45 WBC 12.5 H RBC 4.36 Hgb 11.5 L Hct 36.1 MCV 82.9 MCH 26.4 MCHC 31.8 RDW 15.9 H Plt Count 297 Neut % (Auto) 69.8 Lymph % (Auto) 21.6 L [place] % (Auto) 5.1 Eos % (Auto) 2.8 Baso % (Auto) 0.7 Neut # (Auto) 8700 H Lymph # (Auto) 2700 [place] # (Auto) 600 Eos # (Auto) 300 Baso # (Auto) 100 PT INR APTT VBG pH VBG pCO2 VBG pO2 VBG HCO3 VBG Total CO2 VBG O2 Saturation VBG Base Excess Sodium 139 Potassium 4.4 Chloride 100 Carbon Dioxide 33 H BUN 13 Creatinine 0.49 L Estimated GFR > 60.0 BUN/Creatinine Ratio 26.5 H Glucose 106 H Lactate Calcium 9.0 Total Bilirubin Conjugated Bilirubin Unconjugated Bilirubin AST ALT Alkaline Phosphatase Total Protein Albumin Globulin Albumin/Globulin Ratio Lipase TSH Urine Color Urine Appearance Urine pH Ur Specific [place] Urine Protein Urine Glucose (UA) Urine Ketones Urine Occult Blood Urine Nitrate Urine Bilirubin Urine Urobilinogen Ur Leukocyte Esterase Urine RBC Urine WBC Urine Bacteria Ur Culture Indicated? Urine Test Nasal Screen MRSA (PCR) Salicylates U Opiates 300ng/mL cut Ur Oxycodone Screen Urine Methadone Screen Acetaminophen < 10 L Ur Barbiturates Screen U Tricyclic Antidepress Ur Phencyclidine Scrn Ur Amphetamines Screen U Methamphetamines Scrn Ur MDMA Scrn (Ecstasy) U Benzodiazepines Scrn Urine Cocaine Screen U Marijuana (THC) Screen Ethyl Alcohol COVID-19 PCR Negative 08/02/20 08/02/20 08/02/20 10:45 10:45 10:45 WBC RBC Hgb Hct MCV MCH MCHC RDW Plt Count Neut % (Auto) Lymph % (Auto) [place] % (Auto) Eos % (Auto) Baso % (Auto) Neut # (Auto) Lymph # (Auto) [place] # (Auto) Eos # (Auto) Baso # (Auto) PT 11.9 INR 1.0 APTT 25 L VBG pH VBG pCO2 VBG pO2 VBG HCO3 VBG Total CO2 VBG O2 Saturation VBG Base Excess Sodium Potassium Chloride Carbon Dioxide BUN Creatinine Estimated GFR BUN/Creatinine Ratio Glucose Lactate 1.4 Calcium Total Bilirubin 0.3 Conjugated Bilirubin 0.0 Unconjugated Bilirubin 0.1 AST 28 ALT 18 Alkaline Phosphatase 80 Total Protein 7.2 Albumin 3.8 Globulin 3.4 Albumin/Globulin Ratio 1.1 Lipase 32 TSH Urine Color Urine Appearance Urine pH Ur Specific [place] Urine Protein Urine Glucose (UA) Urine Ketones Urine Occult Blood Urine Nitrate Urine Bilirubin Urine Urobilinogen Ur Leukocyte Esterase Urine RBC Urine WBC Urine Bacteria Ur Culture Indicated? Urine Test Nasal Screen MRSA (PCR) Salicylates 39.4 H* U Opiates 300ng/mL cut Ur Oxycodone Screen Urine Methadone Screen Acetaminophen Ur Barbiturates Screen U Tricyclic Antidepress Ur Phencyclidine Scrn Ur Amphetamines Screen U Methamphetamines Scrn Ur MDMA Scrn (Ecstasy) U Benzodiazepines Scrn Urine Cocaine Screen U Marijuana (THC) Screen Ethyl Alcohol < 10 COVID-19 PCR 08/02/20 08/02/20 08/02/20 10:45 11:10 13:11 WBC RBC Hgb Hct MCV MCH MCHC RDW Plt Count Neut % (Auto) Lymph % (Auto) [place] % (Auto) Eos % (Auto) Baso % (Auto) Neut # (Auto) Lymph # (Auto) [place] # (Auto) Eos # (Auto) Baso # (Auto) PT INR APTT VBG pH 7.41 VBG pCO2 51.9 H VBG pO2 51 H VBG HCO3 33 H VBG Total CO2 34 H VBG O2 Saturation 85 H VBG Base Excess 8.0 H Sodium 138 Potassium 4.1 Chloride 101 Carbon Dioxide 32 BUN 14 Creatinine 0.49 L Estimated GFR > 60.0 BUN/Creatinine Ratio 28.6 H Glucose 150 H Lactate Calcium 8.6 Total Bilirubin Conjugated Bilirubin Unconjugated Bilirubin AST ALT Alkaline Phosphatase Total Protein Albumin Globulin Albumin/Globulin Ratio Lipase TSH 1.96 Urine Color Urine Appearance Urine pH Ur Specific [place] Urine Protein Urine Glucose (UA) Urine Ketones Urine Occult Blood Urine Nitrate Urine Bilirubin Urine Urobilinogen Ur Leukocyte Esterase Urine RBC Urine WBC Urine Bacteria Ur Culture Indicated? Urine Test Nasal Screen MRSA (PCR) Salicylates 38.5 H* U Opiates 300ng/mL cut Ur Oxycodone Screen Urine Methadone Screen Acetaminophen Ur Barbiturates Screen U Tricyclic Antidepress Ur Phencyclidine Scrn Ur Amphetamines Screen U Methamphetamines Scrn Ur MDMA Scrn (Ecstasy) U Benzodiazepines Scrn Urine Cocaine Screen U Marijuana (THC) Screen Ethyl Alcohol COVID-19 PCR 08/02/20 08/02/20 08/02/20 14:10 15:12 17:15 WBC RBC Hgb Hct MCV MCH MCHC RDW Plt Count Neut % (Auto) Lymph % (Auto) [place] % (Auto) Eos % (Auto) Baso % (Auto) Neut # (Auto) Lymph # (Auto) [place] # (Auto) Eos # (Auto) Baso # (Auto) PT INR APTT VBG pH 7.61 H VBG pCO2 31.4 L VBG pO2 92 H VBG HCO3 32 H VBG Total CO2 32 H VBG O2 Saturation 98 H VBG Base Excess 10.0 H Sodium 140 Potassium 4.1 Chloride 100 Carbon Dioxide 32 BUN 15 Creatinine 0.54 Estimated GFR > 60.0 BUN/Creatinine Ratio 27.8 H Glucose 123 H Lactate Calcium 8.9 Total Bilirubin Conjugated Bilirubin Unconjugated Bilirubin AST ALT Alkaline Phosphatase Total Protein Albumin Globulin Albumin/Globulin Ratio Lipase TSH Urine Color Urine Appearance Urine pH Ur Specific [place] Urine Protein Urine Glucose (UA) Urine Ketones Urine Occult Blood Urine Nitrate Urine Bilirubin Urine Urobilinogen Ur Leukocyte Esterase Urine RBC Urine WBC Urine Bacteria Ur Culture Indicated? Urine Test Nasal Screen MRSA (PCR) Negative for mrsa Salicylates 46.7 H* U Opiates 300ng/mL cut Ur Oxycodone Screen Urine Methadone Screen Acetaminophen Ur Barbiturates Screen U Tricyclic Antidepress Ur Phencyclidine Scrn Ur Amphetamines Screen U Methamphetamines Scrn Ur MDMA Scrn (Ecstasy) U Benzodiazepines Scrn Urine Cocaine Screen U Marijuana (THC) Screen Ethyl Alcohol COVID-19 PCR 08/02/20 08/02/20 08/02/20 18:39 19:37 19:37 WBC RBC Hgb Hct MCV MCH MCHC RDW Plt Count Neut % (Auto) Lymph % (Auto) [place] % (Auto) Eos % (Auto) Baso % (Auto) Neut # (Auto) Lymph # (Auto) [place] # (Auto) Eos # (Auto) Baso # (Auto) PT INR APTT VBG pH 7.59 H 7.44 H VBG pCO2 5.6 L 46.5 VBG pO2 30 L 80 H VBG HCO3 5 L 31 H VBG Total CO2 6 L 33 H VBG O2 Saturation 74 96 H VBG Base Excess -16.0 L 7.0 H Sodium 141 Potassium 4.0 Chloride 100 Carbon Dioxide 33 H BUN 15 Creatinine 0.62 Estimated GFR > 60.0 BUN/Creatinine Ratio 24.2 H Glucose 110 H Lactate Calcium 8.9 Total Bilirubin Conjugated Bilirubin Unconjugated Bilirubin AST ALT Alkaline Phosphatase Total Protein Albumin Globulin Albumin/Globulin Ratio Lipase TSH Urine Color Urine Appearance Urine pH Ur Specific [place] Urine Protein Urine Glucose (UA) Urine Ketones Urine Occult Blood Urine Nitrate Urine Bilirubin Urine Urobilinogen Ur Leukocyte Esterase Urine RBC Urine WBC Urine Bacteria Ur Culture Indicated? Urine Test Nasal Screen MRSA (PCR) Salicylates 51.2 H* U Opiates 300ng/mL cut Ur Oxycodone Screen Urine Methadone Screen Acetaminophen Ur Barbiturates Screen U Tricyclic Antidepress Ur Phencyclidine Scrn Ur Amphetamines Screen U Methamphetamines Scrn Ur MDMA Scrn (Ecstasy) U Benzodiazepines Scrn Urine Cocaine Screen U Marijuana (THC) Screen Ethyl Alcohol COVID-19 PCR 08/02/20 08/02/20 08/02/20 21:20 21:31 23:20 WBC RBC Hgb Hct MCV MCH MCHC RDW Plt Count Neut % (Auto) Lymph % (Auto) [place] % (Auto) Eos % (Auto) Baso % (Auto) Neut # (Auto) Lymph # (Auto) [place] # (Auto) Eos # (Auto) Baso # (Auto) PT INR APTT VBG pH 7.54 H VBG pCO2 38.7 L VBG pO2 129 H VBG HCO3 33 H VBG Total CO2 34 H VBG O2 Saturation 99 H VBG Base Excess 10.0 H Sodium 140 139 Potassium 4.0 3.8 Chloride 99 100 Carbon Dioxide 34 H 38 H BUN 15 14 Creatinine 0.64 0.62 Estimated GFR > 60.0 > 60.0 BUN/Creatinine Ratio 23.4 H 22.6 H Glucose 117 H 122 H Lactate Calcium 8.8 8.3 L Total Bilirubin Conjugated Bilirubin Unconjugated Bilirubin AST ALT Alkaline Phosphatase Total Protein Albumin Globulin Albumin/Globulin Ratio Lipase TSH Urine Color Urine Appearance Urine pH Ur Specific [place] Urine Protein Urine Glucose (UA) Urine Ketones Urine Occult Blood Urine Nitrate Urine Bilirubin Urine Urobilinogen Ur Leukocyte Esterase Urine RBC Urine WBC Urine Bacteria Ur Culture Indicated? Urine Test Nasal Screen MRSA (PCR) Salicylates 55.6 H* 48.1 H* U Opiates 300ng/mL cut Ur Oxycodone Screen Urine Methadone Screen Acetaminophen Ur Barbiturates Screen U Tricyclic Antidepress Ur Phencyclidine Scrn Ur Amphetamines Screen U Methamphetamines Scrn Ur MDMA Scrn (Ecstasy) U Benzodiazepines Scrn Urine Cocaine Screen U Marijuana (THC) Screen Ethyl Alcohol COVID-19 PCR 08/02/20 08/03/20 08/03/20 23:27 01:08 03:00 WBC RBC Hgb Hct MCV MCH MCHC RDW Plt Count Neut % (Auto) Lymph % (Auto) [place] % (Auto) Eos % (Auto) Baso % (Auto) Neut # (Auto) Lymph # (Auto) [place] # (Auto) Eos # (Auto) Baso # (Auto) PT INR APTT VBG pH 7.44 H VBG pCO2 50.1 H VBG pO2 65 H VBG HCO3 34 H VBG Total CO2 36 H VBG O2 Saturation 93 H VBG Base Excess 10.0 H Sodium 138 139 Potassium 3.5 3.8 Chloride 98 98 Carbon Dioxide 35 H 38 H BUN 15 15 Creatinine 0.65 0.61 Estimated GFR > 60.0 > 60.0 BUN/Creatinine Ratio 23.1 H 24.6 H Glucose 191 H 148 H Lactate Calcium 8.2 L 8.3 L Total Bilirubin Conjugated Bilirubin Unconjugated Bilirubin AST ALT Alkaline Phosphatase Total Protein Albumin Globulin Albumin/Globulin Ratio Lipase TSH Urine Color Urine Appearance Urine pH Ur Specific [place] Urine Protein Urine Glucose (UA) Urine Ketones Urine Occult Blood Urine Nitrate Urine Bilirubin Urine Urobilinogen Ur Leukocyte Esterase Urine RBC Urine WBC Urine Bacteria Ur Culture Indicated? Urine Test Nasal Screen MRSA (PCR) Salicylates 46.5 H* 45.0 H* U Opiates 300ng/mL cut Ur Oxycodone Screen Urine Methadone Screen Acetaminophen Ur Barbiturates Screen U Tricyclic Antidepress Ur Phencyclidine Scrn Ur Amphetamines Screen U Methamphetamines Scrn Ur MDMA Scrn (Ecstasy) U Benzodiazepines Scrn Urine Cocaine Screen U Marijuana (THC) Screen Ethyl Alcohol COVID-19 PCR 08/03/20 08/03/20 08/03/20 03:00 05:00 05:05 WBC RBC Hgb Hct MCV MCH MCHC RDW Plt Count Neut % (Auto) Lymph % (Auto) [place] % (Auto) Eos % (Auto) Baso % (Auto) Neut # (Auto) Lymph # (Auto) [place] # (Auto) Eos # (Auto) Baso # (Auto) PT INR APTT VBG pH 7.44 H 7.43 VBG pCO2 51.6 H 51.7 H VBG pO2 67 H 63 H VBG HCO3 35 H 34 H VBG Total CO2 37 H 36 H VBG O2 Saturation 93 H 92 H VBG Base Excess 11.0 H 10.0 H Sodium 139 Potassium 3.5 Chloride 98 Carbon Dioxide 37 H BUN 14 Creatinine 0.61 Estimated GFR > 60.0 BUN/Creatinine Ratio 23.0 H Glucose 172 H Lactate Calcium 8.0 L Total Bilirubin Conjugated Bilirubin Unconjugated Bilirubin AST ALT Alkaline Phosphatase Total Protein Albumin Globulin Albumin/Globulin Ratio Lipase TSH Urine Color Urine Appearance Urine pH Ur Specific [place] Urine Protein Urine Glucose (UA) Urine Ketones Urine Occult Blood Urine Nitrate Urine Bilirubin Urine Urobilinogen Ur Leukocyte Esterase Urine RBC Urine WBC Urine Bacteria Ur Culture Indicated? Urine Test Nasal Screen MRSA (PCR) Salicylates 40.7 H* U Opiates 300ng/mL cut Ur Oxycodone Screen Urine Methadone Screen Acetaminophen Ur Barbiturates Screen U Tricyclic Antidepress Ur Phencyclidine Scrn Ur Amphetamines Screen U Methamphetamines Scrn Ur MDMA Scrn (Ecstasy) U Benzodiazepines Scrn Urine Cocaine Screen U Marijuana (THC) Screen Ethyl Alcohol COVID-19 PCR 08/03/20 06:55 WBC RBC Hgb Hct MCV MCH MCHC RDW Plt Count Neut % (Auto) Lymph % (Auto) [place] % (Auto) Eos % (Auto) Baso % (Auto) Neut # (Auto) Lymph # (Auto) [place] # (Auto) Eos # (Auto) Baso # (Auto) PT INR APTT VBG pH VBG pCO2 VBG pO2 VBG HCO3 VBG Total CO2 VBG O2 Saturation VBG Base Excess Sodium 139 Potassium 3.3 L Chloride 97 L Carbon Dioxide 39 H BUN 13 Creatinine 0.58 Estimated GFR > 60.0 BUN/Creatinine Ratio 22.4 H Glucose 181 H Lactate Calcium 7.9 L Total Bilirubin Conjugated Bilirubin Unconjugated Bilirubin AST ALT Alkaline Phosphatase Total Protein Albumin Globulin Albumin/Globulin Ratio Lipase TSH Urine Color Urine Appearance Urine pH Ur Specific [place] Urine Protein Urine Glucose (UA) Urine Ketones Urine Occult Blood Urine Nitrate Urine Bilirubin Urine Urobilinogen Ur Leukocyte Esterase Urine RBC Urine WBC Urine Bacteria Ur Culture Indicated? Urine Test Nasal Screen MRSA (PCR) Salicylates 38.2 H* U Opiates 300ng/mL cut Ur Oxycodone Screen Urine Methadone Screen Acetaminophen Ur Barbiturates Screen U Tricyclic Antidepress Ur Phencyclidine Scrn Ur Amphetamines Screen U Methamphetamines Scrn Ur MDMA Scrn (Ecstasy) U Benzodiazepines Scrn Urine Cocaine Screen U Marijuana (THC) Screen Ethyl Alcohol COVID-19 PCR PFSH Medical History (Updated 08/02/20 @ 17:31 by AZAR Desai) Abnormal Pap smear of cervix Agoraphobia Anal fissure (01/24/12) Anemia Anxiety Asthma Asthma with allergic rhinitis BRCA negative Bursitis of left hip Chronic back pain Chronic cough Chronic headaches Corneal pigmentation of both eyes Depression Endometriosis Essential (primary) hypertension Fibromyalgia Frequent UTI Gastric ulcer Gastroparesis GERD (gastroesophageal reflux disease) GI bleeding Hayfever Hearing loss Hemorrhoids History of heavy periods History of partial hysterectomy (01/04/16) History of recurrent ear infection History of tilt table evaluation (05/02/15) IBS (irritable bowel syndrome) Interstitial cystitis Irregular periods/menstrual cycles Kidney infection (2002) Migraines MRSA infection Ovarian cyst Painful menstrual periods Panic attacks Partial blindness PTSD (post-traumatic stress disorder) PUD (peptic ulcer disease) Recurrent sinusitis Rheumatoid arthritis Scoliosis Tachycardia Tinnitus Vaginal delivery Vertigo Surgical History Anesthesia complication History of bladder surgery (02/2001) History of bladder suspension procedure (06/14/13) History of colonoscopy (01/10/15) History of endoscopy (05/04/07) History of endoscopy (01/10/15) History of hip surgery (12/13/92) History of rectal surgery (01/24/12) History of third molar tooth extraction (1997) Status post appendectomy (08/1996) Status post dilation and curettage (10/2009) Status post hysterectomy (05/07/10) Status post laparoscopic cholecystectomy (03/11/06) Status post laparoscopy (1999) Status post laparoscopy (05/04/07) Family History Brother Age: 44 Back pain Brother Age: 43 Migraines Child Age: 17 Mental health problem Child Age: 16 Asperger syndrome Father Age: 67 Anger Mother Age: 61 Hypothyroidism Anxiety Stroke Sister Age: 44 Thyroid cancer Brain tumor Grandfather No problems noted. Grandmother Brain tumor Grandfather No problems noted. Grandmother Ovarian cancer Social History marital status: number of children: 2 household members: family lives independently: Yes caregiver/support person: Yes housing: house Smoking Status: Never smoker second hand exposure: No alcohol intake: never substance use type: does not use Assessment & Plan Assessment & Plan narrative: Pt is a 40yo woman with HTN, asthma, severe depression and anxiety with panic attacks and agoraphobia, IBS, and gastroparesis who presents after intentional aspirin overdose, taking 100 tablets. Pt is currently stable. Salicylate level initially continued to rise last night, up to 55.6. Now improving still on sodium bicarb and having received activated charcoal. 1) Salicyclate poisoning: Poison control contacted from the ED. Will follow their recommendations. - 150meq (3amps) sodiume bicarbonate and 40meq KCl in 1L D5W at twice maintenance (250cc/hr) - Check salicylate q2hrs until level it peaks and then is consistently downward trending and < 30mg/dL, then can stop sodium bicarb infusion - Check level 6 and 12 hours after stopping to ensure no rise - Check potassium level with each salicylate check to keep level > 4.0 - Potassium currently 3.5. Will give additional 20meq rider now. - Check electrolytes and VBG every 2 hrs. Goal VpH 7.45-7.5 to prevent hypocalcemia - Frequent monitoring for pulmonary edema, fluid status, neurological status 2) Depression and anxiety: Pt with known severe depression. This appears to have been very intentional overdose, with ongoing suicidal ideation - Suicide precautions with constant monitor - Social work consulted. Pt now states she no longer is having any suicidal thoughts. - Continue current home medications of [place], Trintellix, Gabapentin, Hydroxyzine, and Diazepam - Psychiatry aware of hospitalization 3) Hypertension: BP currently stable - Continue home Lisinopril 4) Asthma: Stable respiratory status - Continue home Incruse, Breo Ellipta, Albuterol PRN 5) Chronic back pain: - Continue home Baclofen 6) Yeast rash: Under pannus - Topical nystatin FEN: General diet DVT ppx: SCDs Code: Full code Dispo: Pending stabilization and normalization of salicylate level. Pending social work eval for safety planning on discharge. Quality VTE Deep Vein Thrombosis/Pulmonary Embolism Present on Admission: No
[2020-08-03 07:46] LABS: HCO3 VBG 35 mmol/L (23-28); Oxygen Saturation VBG 93 % (70-75); PCO2 VBG 52.1 mmHg (45-50); PO2 VBG 65 mmHg (35-45); Total CO2 VBG 37 mmol/L (24-29); pH VBG 7.44 (7.33-7.43)
[2020-08-03] MEDS: NYSTATIN POWDER 15GM 1 APPLIC TOP ×2 (08:58→20:53)
[2020-08-03] MEDS: GABAPENTIN 600 MG TABLET PO ×2 (09:01→20:57)
[2020-08-03] MEDS: lisinopriL 20 MG TABLET PO (09:01)
[2020-08-03] MEDS: PANTOPRAZOLE 40 MG TABLET PO ×2 (09:02→20:58)
[2020-08-03] MEDS: TRIAMCINOLONE 0.1% CREAM 15 GM 1 APPLIC TOP ×2 (09:02→20:54)
[2020-08-03] MEDS: diazePAM 5 MG TABLET PO ×2 (09:02→20:52)
[2020-08-03] MEDS: POTASSIUM CHLORIDE 20 MEQ in SODIUM CHLORIDE 0.9% 250 ML 130 ML IV (09:05)
[2020-08-03] MEDS: lamoTRIgine 100 MG TABLET 150 MG PO (09:15)
[2020-08-03 09:50] LABS: BUN Creatinine Ratio 22.2 (6-22); Blood Urea Nitrogen 12 mg/dL (7-17); Calcium 8.2 mg/dL (8.4-10.2); Carbon Dioxide 35 mmol/L (22-32); Chloride 98 mmol/L (98-107); Estimated Glomerular Filt Rate > 60.0 mL/min (>60); Glucose 132 mg/dL (70-100); HEMOLYSIS 31 (0-50); Potassium 3.9 mmol/L (3.4-5.1); Sodium 139 mmol/L (137-145)
--- NOTE | 2020-08-03 10:59 | PC.NURSE ---
PT DROWSY BUT ORIENTED- SHE TOLERATED FINAL DOSE OF PO ACTIVATED CHARCOAL AND PROMPTLY VOMITED EXPLOSIVELY- TOOK SMALL AMOUNT OF BREAKFAST THEN SHOWERED THIS AM- IS COOPERATIVE AND CALM WITH CARE PROVIDED - PT WON'T ALLOW HOB TO ELEVATED PAST ABOUT 20 DEGRESS AND VISIBILY HAS COLOR CHANGES AND NOTED APNEIC EPISODES
--- NOTE | 2020-08-03 11:32 | CM.DANOTE ---
Addendum entered by AZAR Wood 08/03/20 13:53: ADD: Pt fairly sedated today and SW will meet bedside again in the morning to confirm there is a safe plan for d/c home when medically stable and inquire if pt would be agreeable with SW contacting her caregiver and solidifying safety plan of return home to the community vs higher level of care at [facility]. AZAR Wood Original Note: Patient is a 40 year old female who was admitted on 08/02/20 for Overdose/Aspirin. Pt has [facility] and [facility] for insurance and her PCP is Dr. Rolanda Raymond. EMR was reviewed. 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 Pt more medically stable today but not stable enough for discharge yet today per Poison Control recommendations. Pt currently denies suicidal ideation or plan with MD. Pt is fully established with [facility] and has regular appointments with Yin ASKEW/HAYLEY and Jacy Ma for ongoing mental health care. Per RN and EMR, pt's therapist Yin was able to have appointment with pt yesterday 08/02/20 after being admitted for further support and planning. Unfortunately SW does not have access to these notes today on their discussion and d/c plan. SW met bedside with pt and explained role and pt quite drowsy but easily arouseable and confirms that she lives in [place] with her 18 yo Dtr (who also has mental health challenges) and her 17 yo autistic son. Pt states they have neighbors who are involved and supportive and grandma from [place] is checking on kids from a distance and sending [employer] food to the kids while pt is admitted to the hospital. Pt confirms she is quite established with [facility] for mental health support and confirms she has a hx of suicide attempt over 10 years ago but denies any [facility] tx hx. Pt confirms that she has been impacted by COVID 19 restrictions of her kids attempting school from home and family/life stressors contributing to her intentional overdose. Pt states initially she was disappointed to be alive but ultimately feels that she is doing better and glad to be alive and feels she needs to be here for her kids. Pt confirms that she had discussion with her therapist regarding what to tell her kids regarding her admission to the hospital and states that her Caregiver is aware and supportive and even though she does not typically work on the weekends that she would make herself available to check in with pt. Pt had difficulty identifying local support people in her life but states that she discussed with her therapist a plan of discharging home with her family and a scheduled Behavioral Health appointment on Friday. Pt states she feels she can maintain safety over the weekend with her kids and caregiver support and is aware of the Crisis Line, which she states is in her phone. SW inquired how likely she would be to call the Crisis Line or Warm Line over the weekend if suicidal ideation occurs and pt states she would be willing and comfortable calling to talk to someone. Pt continues to deny any current suicidal ideation or plan. SW inquired if pt felt Inpt MH tx needed at this time to maintain safety and pt declines and feels comfortable with outpt plan and additional resources. Plan: SW to follow in the morning with providing additional resources for the weekend and confirm pt is safe for d/c plan back home with outpt follow up. SW will attempt to contact therapist at [facility] tomorrow when their clinic is open after the holiday today to confirm safety plan for discharge. AZAR Wood Discharge Planning/Care Management CM Discharge Assessment Start: 08/03/20 11:29 Freq: Status: Active Protocol: Document 08/03/20 11:29 (Rec: 08/03/20 11:32 [id number]) Discharge Planning Assessment Assigned Anesthetist AZAR Blake DPOA/Assigned Designee Name mother Advance Directives? No Advance Directives on File No History Provided By Patient,Medical Record Has Patient been admitted in last 30 No days? Prior Living Arrangements House Household Members children Type of transporation used prior to Relies on Others admit Comment Has a caregiver through Medicaid Independent with ADL's Yes: mostly Is patient alert and oriented? Yes Needs Assistance With Home Chores / Shopping Caregiver for Another Yes: 18 yo Dtr and 17 yo autistic son Comment Likely home with intensive outpt MH follow up Barriers to Discharge No Discharge Plan Home Transportation Arrangement Pt's Dtr or Caregiver can likely provide transport if safe for home Referrals Initiated Other Additional Comment [facility] Crisis Line, Warm Line, and [facility] (mobile outreach team ) Whiteboard Updated in Patient Room with Yes name and ext. # of Anesthetist Review Status In Process Please Provide Date Initial DC 08/03/20 Assessment Was Performed Next Review Type Continued Stay Review
[2020-08-03 11:43] LABS: BUN Creatinine Ratio 20.4 (6-22); Blood Urea Nitrogen 11 mg/dL (7-17); Calcium 8.1 mg/dL (8.4-10.2); Carbon Dioxide 39 mmol/L (22-32); Chloride 97 mmol/L (98-107); Estimated Glomerular Filt Rate > 60.0 mL/min (>60); Glucose 161 mg/dL (70-100); HEMOLYSIS < 15 (0-50); Potassium 3.5 mmol/L (3.4-5.1); Sodium 139 mmol/L (137-145)
[2020-08-03 11:49] LABS: Salicylate 33.3 mg/dL (<20)
[2020-08-03 13:27] LABS: BUN Creatinine Ratio 20.8 (6-22); Blood Urea Nitrogen 11 mg/dL (7-17); Calcium 8.2 mg/dL (8.4-10.2); Chloride 97 mmol/L (98-107); Estimated Glomerular Filt Rate > 60.0 mL/min (>60); Glucose 112 mg/dL (70-100); HEMOLYSIS < 15 (0-50); Potassium 3.7 mmol/L (3.4-5.1); Salicylate 29.4 mg/dL (<20); Sodium 139 mmol/L (137-145)
[2020-08-03 13:34] LABS: Carbon Dioxide 39 mmol/L (22-32)
[2020-08-03] MEDS: POTASSIUM CHLORIDE 40 MEQ in SODIUM CHLORIDE 0.9% 500 ML 130 ML IV (14:36)
[2020-08-03 15:39] LABS: BUN Creatinine Ratio 19.2 (6-22); Blood Urea Nitrogen 10 mg/dL (7-17); Chloride 97 mmol/L (98-107); Estimated Glomerular Filt Rate > 60.0 mL/min (>60); Glucose 117 mg/dL (70-100); HEMOLYSIS < 15 (0-50); Potassium 3.5 mmol/L (3.4-5.1); Salicylate 23.3 mg/dL (<20); Sodium 140 mmol/L (137-145)
[2020-08-03 15:46] LABS: Carbon Dioxide 38 mmol/L (22-32)
--- NOTE | 2020-08-03 16:18 | PC.NURSE ---
Addendum entered by Makenzie aPgan R.N. 08/03/20 22:04: 2200- Unable to place on cpap as patient cannot tolerate full facemask and we do not carry the nasal pillows. Placed on 2l cannula for sleep. Original Note: 1600- SCD off and out of the room due to patient status of Suicidal Ideation and the potential to use the hoses for self harm.
[2020-08-03] MEDS: MAGNESIUM OXIDE 400 MG TABLET 800 MG PO (20:52)
[2020-08-03] MEDS: MONTELUKAST 10 MG TABLET PO (20:52)
[2020-08-03] MEDS: PRAZOSIN 1 MG CAPSULE 3 MG PO (20:52)
[2020-08-03] MEDS: LIDOCAINE 5% OINT 35 GM 1 APPLIC TOP (20:54)
[2020-08-03 23:24] LABS: Blood Urea Nitrogen 11 mg/dL (7-17); Calcium 7.9 mg/dL (8.4-10.2); Carbon Dioxide 39 mmol/L (22-32); Chloride 99 mmol/L (98-107); Estimated Glomerular Filt Rate > 60.0 mL/min (>60); Glucose 111 mg/dL (70-100); HEMOLYSIS < 15 (0-50); Potassium 3.3 mmol/L (3.4-5.1); Salicylate 8.6 mg/dL (<20); Sodium 138 mmol/L (137-145)
[2020-08-04] VITALS: BP 114/64; PULSE 107; RESP 24; TEMP 36.4; O2SAT 94
[2020-08-04] MEDS: ACETAMINOPHEN 325 MG TABLET 650 MG PO (00:15)
[2020-08-04] MEDS: POTASSIUM CHLORIDE 40 MEQ in SODIUM CHLORIDE 0.9% 500 ML 130 ML IV (00:27)
[2020-08-04] MEDS: ONDANSETRON 4 MG ODT 8 MG PO ×2 (03:23→08:55)
[2020-08-04 04:00] VITALS: O2SAT 96
[2020-08-04 04:36] VITALS: BP 145/77; PULSE 102; RESP 22; TEMP 36.1; O2SAT 96
[2020-08-04 05:16] LABS: Salicylate 4.4 mg/dL (<20)
[2020-08-04 05:17] LABS: BUN Creatinine Ratio 22.2 (6-22); Blood Urea Nitrogen 10 mg/dL (7-17); Carbon Dioxide 36 mmol/L (22-32); Chloride 99 mmol/L (98-107); Estimated Glomerular Filt Rate > 60.0 mL/min (>60); Glucose 111 mg/dL (70-100); HEMOLYSIS < 15 (0-50); Potassium 3.4 mmol/L (3.4-5.1); Sodium 139 mmol/L (137-145)
--- NOTE | 2020-08-04 06:17 | PC.NURSE ---
Addendum entered by Carole Thakkar R.N. 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 Has been up to restroom, voiding multiple times and 1 dark, black BM (patient had previous administration of activated charcoal). Patient with complaint of significant headache -medicated with PRN Tylenol. Patient has not had any thoughts of harming herself, and stated she was ready to go home to be with my two kids. Patient remains on suicide precautions with a 1:1 observation.
[2020-08-04 08:00] VITALS: BP 148/86; PULSE 98; RESP 13; TEMP 36.9; O2SAT 94
--- NOTE | 2020-08-04 08:37 | CM.DPC ---
DCP Discharge Home Per MD, pt is medically stable and meets criteria established by poison control to be discharged from the hospital today with a safety plan in place. MARIANGEL met bedside with pt this morning and she confirms that she remains stable and is feeling much better medically but also emotionally today. Pt continues to deny any active suicidal ideation. SW inquired if pt could identify what has helped her to feel better today vs when she overdosed and pt states she has had time to rest and be away from home and have time to sort through her feelings and stress. Pt feels that she is ready to go home and take a soothing hot shower, cuddle my cats, and see my kids. SW inquired about any other medications that might be available to overdose if pt's suicidal ideation return and pt denies and states her caregiver assists with her prescribed medications and that pt only has used aspirin to overdose on and she does not mess with my mental health medications. SW provided the [facility] (Mobile Outreach Team) information and discussed how their program works and also the [facility] Line as an additional resource to call for support as pt already has the [facility] Crisis Line information from previous. MARIANGEL also confirmed that pt's [facility] ([phone]) is through [employer] and comes M-F [phone] each week. Pt states she already spoke to [facility] and [facility] and plan is to update them this morning that she is medically stable to discharge and confirm that [facility] can provide transport home today and stay for a few hours and confirm that she can also provide some support this weekend. MARIANGEL updated MD and plan of [facility] to complete follow up phone call with pt after discharge and SW to make [facility] Crisis Alert on pt in case pt has increased suicidal ideation over the weekend. MARIANGEL and RN met bedside with pt and [facility] bedside and provided medical update and update on resources and next upcoming appt at [facility] and [facility] confirms that she will likely write down the resource contact information and plans to work with pt some today and see if she can get approval to work also this weekend. [facility] agreeable with transporting pt home today. Plan: Patient to d/c home today via [facility] and follow up phone call from [facility] to check in on patient, Crisis Alert faxed and on record for 10 days if mental health needs arise over the weekend, scheduled urgent appt with therapist at [facility] for Fri08/07/20 as well as Fri08/09/20. AZAR Wood
--- NOTE | 2020-08-04 08:43 | PM.DS.1 ---
History of Present Illness History of Present Illness Chief complaint: Overdose/Suicidal Ideation Narrative: Pt is a 40yo woman with HTN, asthma, severe depression and anxiety with panic attacks and agoraphobia, IBS, and gastroparesis who presents after suicide attempt with Aspirin. The pt reports that she has been feeling very overwhelmed at home. Her daughter has dropped out of school. Her son is having a lot of difficulty with at-home learning. She has been feeling the stress building and building, and last night reached her breaking point. She was crying most of the day yesterday, and attempted to get in touch with her therapist, but was scheduled for today. She cannot identify any other specific triggers, but around 1:30am decided that she wanted to just sleep and not deal with it all anymore. She did write a note to her family on her phone, and then opened a new bottle of enteric coated 325mg aspirin and took all 100 tablets. The pt then went to sleep. In the morning, she woke to her caregiver ringing the reyna at her house. She recalls feeling disappointed that she was alive when she woke. EMS was immediately called after the pt told her what she had done. The pt reports that currently she is still having thoughts of self-harm, but would not intend to act on them. She has attempted suicide in the past, but not in over 10 years. Her daughter has also been cutting recently, which has been a trigger for the pt. She denies any other intake including alcohol or other medications/drugs. Discharge Providers Provider Date of admission: 08/02/20 13:14 Discharge Date: 08/04/20 Primary care physician: Rolanda Raymond MD Consults: 08/02/20 13:49 Consult to [facility] [place] - Exercise Scientist Routine Comment: suicide attempt Discharge provider: Rolanda Raymond MD Summary Hospital Course Discharge Diagnosis: Salicylate overdose Suicide attempt Depression Hypertension Yeast rash Asthma Hospital Course: The pt was admitted with salicylate overdose. She was started on sodium bicarbonate drip with potassium. Her level initially improved, but then eugene again. It reached a peak level of 55.6. She received 3 doses of activated charcoal, and was continued on sodium bicarbonate. Her salicylate level then began to improved. At the time of discharge, it was 4.4. The pt remained stable during her entire hospitalization. She had mild stomach upset and a sore throat, but otherwise had no additional complaints. Social work was consulted, and the pts outpatient counselor saw her while she was in the hospital as well. She was determined to be safe to discharge back home, with the the [facility] to complete a phone check-in with the pt tomorrow and the day after. She has an appt with her counselor scheduled for 08/07. The pt also has the crisis line number, and agrees to call them if needed. At the time of discharge, the pt denied any further suicidal thoughts or plans. Status at Discharge Cognitive/behavioral status at discharge: oriented Functional status at discharge: independent ambulation Overall status at discharge: patient is back to baseline Exam Vital Signs (past 8 hours): - 08/04/20 04:00 08/04/20 04:36 08/04/20 08:00 Temperature 96.9 F L 98.5 F Pulse Rate 102 H 98 H Respiratory Rate 22 13 Blood Pressure 145/77 H 148/86 H Pulse Oximetry 96 96 94 Oxygen Delivery Method Nasal Cannula Oxygen Flow Rate 0 Narrative Exam Narrative: Gen: NAD, sitting comfortably in chair CV: tachycardic, normal rhythm, no murmurs Resp: clear to auscultation bilaterally, no wheezes or crackles, breathing comfortably Abd: soft, nondistended, nontender Ext: trace edema Objective Labs Result Diagrams: 08/02/20 10:45 08/04/20 04:43 Labs: Laboratory Results - last 24 hr 08/03/20 08/03/20 08/03/20 09:30 11:11 13:09 Sodium 139 139 139 Potassium 3.9 3.5 3.7 Chloride 98 97 L 97 L Carbon Dioxide 35 H 39 H 39 H BUN 12 11 11 Creatinine 0.54 0.54 0.53 Estimated GFR > 60.0 > 60.0 > 60.0 BUN/Creatinine Ratio 22.2 H 20.4 20.8 Glucose 132 H 161 H 112 H Calcium 8.2 L 8.1 L 8.2 L Salicylates 38.0 H* 33.3 H* 29.4 H 08/03/20 08/03/20 08/04/20 15:23 22:30 04:43 Sodium 140 138 Potassium 3.5 3.3 L Chloride 97 L 99 Carbon Dioxide 38 H 39 H BUN 10 11 Creatinine 0.52 0.50 L Estimated GFR > 60.0 > 60.0 BUN/Creatinine Ratio 19.2 22.0 Glucose 117 H 111 H Calcium 8.0 L 7.9 L Salicylates 23.3 H 8.6 4.4 08/04/20 04:43 Sodium 139 Potassium 3.4 Chloride 99 Carbon Dioxide 36 H BUN 10 Creatinine 0.45 L Estimated GFR > 60.0 BUN/Creatinine Ratio 22.2 H Glucose 111 H Calcium 8.0 L Salicylates [facility] Medical History (Updated 08/02/20 @ 17:31 by AZAR Desai) Abnormal Pap smear of cervix Agoraphobia Anal fissure (01/24/12) Anemia Anxiety Asthma Asthma with allergic rhinitis BRCA negative Bursitis of left hip Chronic back pain Chronic cough Chronic headaches Corneal pigmentation of both eyes Depression Endometriosis Essential (primary) hypertension Fibromyalgia Frequent UTI Gastric ulcer Gastroparesis GERD (gastroesophageal reflux disease) GI bleeding Hayfever Hearing loss Hemorrhoids History of heavy periods History of partial hysterectomy (01/04/16) History of recurrent ear infection History of tilt table evaluation (05/02/15) IBS (irritable bowel syndrome) Interstitial cystitis Irregular periods/menstrual cycles Kidney infection (2002) Migraines MRSA infection Ovarian cyst Painful menstrual periods Panic attacks Partial blindness PTSD (post-traumatic stress disorder) PUD (peptic ulcer disease) Recurrent sinusitis Rheumatoid arthritis Scoliosis Tachycardia Tinnitus Vaginal delivery Vertigo Surgical History Anesthesia complication History of bladder surgery (02/2001) History of bladder suspension procedure (06/14/13) History of colonoscopy (01/10/15) History of endoscopy (05/04/07) History of endoscopy (01/10/15) History of hip surgery (12/13/92) History of rectal surgery (01/24/12) History of third molar tooth extraction (1997) Status post appendectomy (08/1996) Status post dilation and curettage (10/2009) Status post hysterectomy (05/07/10) Status post laparoscopic cholecystectomy (03/11/06) Status post laparoscopy (1999) Status post laparoscopy (05/04/07) Family History Brother Age: 44 Back pain Brother Age: 43 Migraines Child Age: 17 Mental health problem Child Age: 16 Asperger syndrome Father Age: 67 Anger Mother Age: 61 Hypothyroidism Anxiety Stroke Sister Age: 44 Thyroid cancer Brain tumor Grandfather No problems noted. Grandmother Brain tumor Grandfather No problems noted. Grandmother Ovarian cancer Social History marital status: number of children: 2 household members: children lives independently: Yes caregiver/support person: Yes housing: house Smoking Status: Never smoker second hand exposure: No alcohol intake: never substance use type: does not use Discharge Plan Discharge Plan Patient Disposition: Home Provider Discharge Comment: Please call the crisis number immediately if you are having any thoughts of self-harm at home. Discharge orders & Medications Prescriptions: New nystatin [Nystop] 100,000 unit/gram Powder 1 applic topical BID Qty: 60 RF: 2 Continued levalbuterol HCl 1.25 mg/3 mL solution for nebulization 1.25 mg INHALATION Q4-6H PRN (Reason: Shortness Of Breath) RF: 0 diazepam 5 mg tablet 5 mg PO TID Qty: 90 RF: 3 lidocaine 5 % ointment 1 applic topical BID PRN (Reason: pain) Qty: 50 RF: 2 triamcinolone acetonide 0.5 % cream 1 applictn TOP BID Qty: 15 RF: 2 clindamycin phosphate 1 % gel 1 applictn TOP BID Qty: 60 RF: 2 Dupixent Syringe 300 mg/2 mL syringe 300 mg SUBCUT QWEEK RF: 0 pilocarpine HCl 4 % drops See Rx Instructions .ROUTE .COMPLEX Qty: 15 RF: 2 prazosin 1 mg capsule 3 mg PO BEDTIME Qty: 270 RF: 2 fluticasone furoate-vilanterol [Breo Ellipta] 200-25 mcg/dose blister with device 1 inhalation INHALATION BEDTIME Qty: 60 RF: 0 dihydroergotamine 1 mg/mL solution 1 mg SUBCUT Q8H PRN (Reason: migraine headache) Qty: 10 RF: 11 gabapentin 300 mg capsule 300 mg PO DAILY MDD 1500mg Qty: 90 RF: 3 gabapentin 600 mg tablet 600 mg PO BID MDD 1500 mg Qty: 180 RF: 3 montelukast [Singulair] 10 mg tablet 10 mg PO BEDTIME Qty: 90 RF: 3 Trintellix 20 mg tablet 20 mg PO DAILY Qty: 90 RF: 1 lamotrigine 150 mg tablet 150 mg PO DAILY Qty: 90 RF: 1 ondansetron 8 mg tablet,disintegrating 8 mg PO Q8H PRN (Reason: nausea and vomiting) Qty: 90 RF: 2 hydroxyzine HCl 50 mg tablet 50 mg PO TID PRN (Reason: anxiety) Qty: 180 RF: 1 Vitamin D3 100 mcg (4,000 unit) capsule 2,000 unit PO BID Qty: 180 RF: 1 Incruse Ellipta 62.5 mcg/actuation blister with device 1 inh INHALATION DAILY RF: 0 lisinopril 20 mg tablet 20 mg PO DAILY RF: 0 omeprazole 40 mg Capsule,Delayed Release(Dr/Ec) 40 mg PO DAILY RF: 0 baclofen 20 mg tablet 40 mg PO BEDTIME RF: 0 magnesium oxide 500 mg Tablet 1,000 mg PO BEDTIME RF: 0 albuterol sulfate [ProAir HFA] 90 mcg/actuation HFA aerosol inhaler 2 puff INHALATION Q4-6H PRN (Reason: Shortness Of Breath) RF: 0 Follow up/Referrals: Rolanda Raymond MD [Primary Care Provider] - Visit Report/Discharge Packet Visit Report Forms: Patient Portal/API, Stroke Signs & Symptoms Discharge Data Primary Care Provider: Rolanda Raymond Discharges patient from system. Discharge Date/Time: 08/04/20 10:19 Quality VTE Deep Vein Thrombosis/Pulmonary Embolism Present on Admission: No
[2020-08-04 08:55] VITALS: BP 148/86
[2020-08-04] MEDS: GABAPENTIN 600 MG TABLET PO (08:55)
[2020-08-04] MEDS: PANTOPRAZOLE 40 MG TABLET PO (08:55)
[2020-08-04] MEDS: diazePAM 5 MG TABLET PO (08:55)
[2020-08-04] MEDS: lisinopriL 20 MG TABLET PO (08:55)
[2020-08-04] MEDS: lamoTRIgine 100 MG TABLET 150 MG PO (09:00)
[2020-08-04] MEDS: POTASSIUM CHLORIDE 20 MEQ TAB 40 MEQ PO (09:04)
[2020-08-04] MEDS: NYSTATIN POWDER 15GM 1 APPLIC TOP (10:15)
--- NOTE | 2020-08-04 10:19 | PC.NURSE ---
discharged tjo home at this time
[2020-08-28 18:30] LABS: HCO3 VBG 34 mmol/L (23-28); Oxygen Saturation VBG 93 % (70-75); PCO2 VBG 46.1 mmHg (45-50); PO2 VBG 65 mmHg (35-45); Total CO2 VBG 35 mmol/L (24-29); pH VBG 7.47 (7.33-7.43)
== END 2020-08-04 10:19 | disposition home or self-care (01) | DRG 918 ==
LOC: ED 12:14 → AC 13:15 → ICU 14:56
PROVIDERS: Admitting Provider Family Medicine; Emergency Provider Emergency Medicine; Family Provider Family Medicine; PCP Family Medicine; Referring Provider Emergency Medicine; Visit Provider Family Medicine
DX: T39.012A Poisoning by aspirin, intentional self-harm, initial encounter (principal); Z68.43 Body mass index [BMI] 50.0-59.9, adult; F40.01 Agoraphobia with panic disorder; F32.9 Major depressive disorder, single episode, unspecified; E65 Localized adiposity; B37.2 Candidiasis of skin and nail; I10 Essential (primary) hypertension; E66.01 Morbid (severe) obesity due to excess calories; J45.909 Unspecified asthma, uncomplicated; G89.29 Other chronic pain; Z11.59 Encounter for screening for other viral diseases
CPT/HCPCS: 36415; 36592; 80048; 80076; 80305; 80320; 80329; 81001; 81025; 82805; 83605; 83690; 84443; 85025; 85610; 85730; 87635; 87797; 93005; 93010; 96361; 96365; 96375; 99223; 99233; 99238; 99284; 99291; A9270; G0480; J2405; J3480

== ENCOUNTER → 2020-09-27 08:08 | Outpatient (CLI) | payer MEDICARE, MEDICAID, SELFPAY ==
[2020-08-31 14:46] VITALS: BMI 51.2
[2020-09-27 09:36] LABS: Lithium 0.2 mmol/L (0.6-1.2)
[2020-09-27 09:38] LABS: Alanine Aminotransferase 20 IU/L (<35); Albumin 4.4 g/dL (3.5-5.0); Albumin Globulin Ratio 1.3 (1.0-2.8); Alkaline Phosphatase 86 U/L (38-126); Aspartate Aminotransferase 21 IU/L (14-36); BUN Creatinine Ratio 22.6 (6-22); Bilirubin Total 0.2 mg/dL (0.2-1.3); Blood Urea Nitrogen 14 mg/dL (7-17); Calcium 9.4 mg/dL (8.4-10.2); Carbon Dioxide 34 mmol/L (22-32); Chloride 96 mmol/L (98-107); Estimated Glomerular Filt Rate > 60.0 mL/min (>60); Globulin 3.4 g/dL (1.7-4.1); Glucose 129 mg/dL (70-100); HEMOLYSIS < 15 (0-50); Potassium 4.1 mmol/L (3.4-5.1); Sodium 139 mmol/L (137-145); Total Protein 7.8 g/dL (6.3-8.2)
== END ==
PROVIDERS: Family Provider Family Medicine; PCP Family Medicine; Referring Provider Family Medicine; Visit Provider Nurse Practitioner Psychiatric/Mental Health
DX: F31.81 Bipolar II disorder (principal); Z51.81 Encounter for therapeutic drug level monitoring
CPT/HCPCS: 36415; 80053; 80178

== ENCOUNTER → 2020-11-15 09:35 | Outpatient (CLI) | payer MEDICARE, MEDICAID, SELFPAY ==
[2020-08-31 14:46] VITALS: BMI 51.2
--- NOTE | 2020-11-15 09:37 | DI.CT.S_ITS ---
PROCEDURE: CT HEAD/BRAIN WO CON INDICATIONS: jaw and ear pain TECHNIQUE: Noncontrast 4.5 mm thick angled axial sections acquired from the foramen magnum to the vertex, with coronal and sagittal reformats. For radiation dose reduction, the following was used: automated exposure control, adjustment of mA and/or kV according to patient size. COMPARISON: [facility], CT, HEAD WITHOUT CONTRAST, 01/18/2010, 10:41. FINDINGS: Image quality: Excellent. CSF spaces: Basal cisterns are patent. No extra-axial fluid collections. Ventricles are normal in size and shape. Brain: No midline shift. No intracranial masses or hemorrhage. Cornejo-white matter interface is normal. Skull and face: Calvarium and visualized facial bones are intact, without suspicious lesions. Sinuses: Visualized sinuses and mastoids are clear. IMPRESSION: No acute intracranial process. Dictated by: Medardo Saavedra M.D. on 11/15/2020 at 10:34 Approved by: Medardo Saavedra M.D. on 11/15/2020 at 10:37
--- NOTE | 2020-11-15 09:37 | DI.CT.S_ITS ---
PROCEDURE: CT FACIAL BONES WO CON INDICATIONS: jaw and ear pain TECHNIQUE: Noncontrast 2.5 mm thick axial images acquired from the mandible through the frontal sinuses, with coronal and sagittal reformatting. For radiation dose reduction, the following was used: automated exposure control, adjustment of mA and/or kV according to patient size. COMPARISON: None. FINDINGS: Image quality: Excellent. Bones and teeth: Orbital blakely are intact. Sinus blakely show no fracture or deformity. Nasal bones and septum are intact. Visualized portions of the mandible demonstrate no fractures or subluxation. Zygomatic arches are intact. Pterygoid plates are intact. Visualized portions of the skull base and auditory canals are intact. Possible debris seen in right external auditory canal/s which is technically nonspecific and recommend direct visual inspection to exclude soft tissue mass. Sinuses: Paranasal sinuses are aerated, without fluid levels, mucosal thickening, or mucoceles. Mastoid air cells are aerated. Soft tissues: No edema, masses, or fluid collections. No enlarged lymph nodes. No soft tissue lacerations or debris. Vascular: Visualized vascular structures appear normal in the absence of contrast. Bony vascular foramina and canals are intact. IMPRESSION: Possible debris or cerumen seen in right external auditory canal/s which is technically nonspecific and recommend direct visual inspection to exclude soft tissue mass. Clear sinuses. Mastoid air cells appear clear. Dictated by: Medardo Saavedra M.D. on 11/15/2020 at 10:37 Approved by: Medardo Saavedra M.D. on 11/15/2020 at 10:49
== END ==
PROVIDERS: Family Provider Family Medicine; PCP Family Medicine; Referring Provider Family Medicine; Visit Provider Family Medicine
DX: R68.84 Jaw pain (principal); H92.09 Otalgia, unspecified ear
CPT/HCPCS: 70450; 70486

== ENCOUNTER → 2020-12-29 09:06 | Outpatient (CLI) | payer MEDICARE, MEDICAID, SELFPAY ==
[2020-08-31 14:46] VITALS: BMI 51.2
[2020-12-29] MEDS: COVID-19 VACC #1, MRNA(MOD) 100 MCG/0.5 ML VIAL IM (09:13)
== END ==
PROVIDERS: PCP Family Medicine; Visit Provider Internal Medicine
DX: Z23 Encounter for immunization (principal)
CPT/HCPCS: 0011A; 91301

== ENCOUNTER → 2021-01-26 08:59 | Outpatient (CLI) | payer MEDICARE, MEDICAID, SELFPAY ==
[2020-08-31 14:46] VITALS: BMI 51.2
[2021-01-26] MEDS: COVID-19 VACC #2, MRNA(MOD) 100 MCG/0.5 ML VIAL IM (09:05)
== END ==
PROVIDERS: PCP Family Medicine; Visit Provider Internal Medicine
DX: Z23 Encounter for immunization (principal)
CPT/HCPCS: 0012A; 91301

== ENCOUNTER → 2021-03-02 08:35 | Outpatient (CLI) | payer MEDICARE, MEDICAID, SELFPAY ==
[2020-08-31 14:46] VITALS: BMI 51.2
--- NOTE | 2021-03-02 08:37 | DI.US.S_ITS ---
PROCEDURE: US [facility] VENOUS LOW EXTREM RT INDICATIONS: RIGHT FOOT SWELLING TECHNIQUE: Real-time imaging, as well as color and pulse Doppler interrogation, were performed of the lower extremity deep veins from the inguinal ligament to the popliteal fossa. COMPARISON: [facility], , [facility] VENOUS LOW EXTREM RT, 02/24/2019, 15:11. FINDINGS: Technically limited exam due to large body habitus. The common femoral, femoral and popliteal veins are normally compressible, and free of intraluminal thrombus. Color and pulse Doppler demonstrate normal phasic intraluminal flow. There is normal augmentation response to distal compression maneuver. IMPRESSION: No right lower extremity DVT. Dictated by: Du Barcenas M.D. on 03/02/2021 at 9:58 Approved by: Du Barcenas M.D. on 03/02/2021 at 9:59
--- NOTE | 2021-03-02 08:37 | DI.RAD.S_ITS ---
PROCEDURE: XR FOOT RT MIN 3V INDICATIONS: right foot swelling TECHNIQUE: 3 views of the foot were acquired. COMPARISON: [facility], CR, XR FOOT RT MIN 3V, 10/29/2019, 11:00. [facility], CR, XR FOOT LT MIN 3V, 06/13/2018, 10:07. FINDINGS: Bones: No fractures or dislocations. No suspicious bony lesions. Soft tissues: No tibiotalar joint effusion. Achilles tendon appears normal. IMPRESSION: No significant osseous abnormality. Dictated by: Du Barcenas M.D. on 03/02/2021 at 9:47 Approved by: Du Barcenas M.D. on 03/02/2021 at 9:58
== END ==
PROVIDERS: PCP Family Medicine; Referring Provider Family Medicine; Visit Provider Family Medicine
DX: M79.89 Other specified soft tissue disorders (principal)
CPT/HCPCS: 73630; 93971

== ENCOUNTER → 2021-08-30 08:13 | Outpatient (CLI) | payer MEDICARE, MEDICAID, SELFPAY ==
[2021-08-01 08:51] VITALS: BMI 51.2
[2021-08-30 09:06] LABS: Add Manual Diff / Slide Review NO; Basophils Absolute Auto 100 /uL (0-100); Basophils Percent Auto 0.5 % (0-2); Eosinophils Absolute Auto 200 /uL (0-450); Eosinophils Percent Auto 2.3 % (2-4); Hematocrit 37.7 % (36-46); Lymphocytes Absolute Auto 2200 /uL (1100-4500); Lymphocytes Percent Auto 20.7 % (25-40); Mean Corpuscular HGB Conc 31.7 % (30-36); Mean Corpuscular Hemoglobin 26.2 PG (26-34); Mean Corpuscular Volume 82.5 fL (80-100); Monocytes Absolute Auto 500 /uL (0-900); Monocytes Percent Auto 4.5 % (3-14); Neutrophils Absolute Auto 7700 /uL (1500-7000); Platelet Count 283 X10^3/uL (150-400); Red Blood Cell Count 4.57 X10^6/uL (4.0-5.2); Red Cell Distribution Width 15.7 % (11.6-14.8); White Blood Cell Count 10.7 X10^3/uL (4.5-11.0)
[2021-08-30 09:14] LABS: Hemoglobin A1C% w Est Avg Glu 5.7 % (4.0-6.0)
[2021-08-30 09:56] LABS: Alanine Aminotransferase 18 IU/L (<35); Albumin Globulin Ratio 1.4 (1.0-2.8); Alkaline Phosphatase 73 U/L (38-126); Aspartate Aminotransferase 19 IU/L (14-36); BUN Creatinine Ratio 15.9 (6-22); Bilirubin Total 0.2 mg/dL (0.2-1.3); Blood Urea Nitrogen 18 mg/dL (7-17); Calcium 9.4 mg/dL (8.4-10.2); Carbon Dioxide 33 mmol/L (22-32); Chloride 99 mmol/L (98-107); Estimated Glomerular Filt Rate 53.1 mL/min (>60); Globulin 2.9 g/dL (1.7-4.1); Glucose 123 mg/dL (70-100); HEMOLYSIS < 15 (0-50); Potassium 4.5 mmol/L (3.4-5.1); Sodium 139 mmol/L (137-145); Total Protein 6.9 g/dL (6.3-8.2)
[2021-08-30 10:05] LABS: Free T4, Direct Thyroxine 1.02 ng/dL (0.78-2.19)
[2021-08-30 10:19] LABS: Thyroid Stimulating Hormone 2.87 uIU/mL (0.47-4.68)
[2021-08-30 10:24] LABS: Ferritin 10 ng/mL (6-137)
== END ==
PROVIDERS: PCP Family Medicine; Referring Provider Nurse Practitioner Psychiatric/Mental Health; Visit Provider Nurse Practitioner Psychiatric/Mental Health
DX: Z79.899 Other long term (current) drug therapy (principal); R53.82 Chronic fatigue, unspecified
CPT/HCPCS: 36415; 80053; 82728; 83036; 84439; 84443; 85025

== ENCOUNTER → 2021-10-10 13:16 | Outpatient (CLI) | payer MEDICARE, MEDICAID, SELFPAY ==
[2021-08-01 08:51] VITALS: BMI 51.2
[2021-10-10 15:59] LABS: Blood Urea Nitrogen 13 mg/dL (7-17); Calcium 9.6 mg/dL (8.4-10.2); Carbon Dioxide 35 mmol/L (22-32); Chloride 98 mmol/L (98-107); Estimated Glomerular Filt Rate > 60.0 mL/min (>60); Glucose 93 mg/dL (70-100); HEMOLYSIS < 15 (0-50); Potassium 4.3 mmol/L (3.4-5.1); Sodium 141 mmol/L (137-145)
== END ==
PROVIDERS: PCP Family Medicine; Referring Provider Family Medicine; Visit Provider Family Medicine
DX: I10 Essential (primary) hypertension (principal); Z79.899 Other long term (current) drug therapy
CPT/HCPCS: 36415; 80048

== ENCOUNTER 2021-12-15 05:20 | Emergency (ER) | payer MEDICARE, MEDICAID, SELFPAY ==
[2021-11-21 14:51] VITALS: BMI 51.2
[2021-12-15 05:28] VITALS: BP 122/56; PULSE 102; RESP 20; TEMP 36.6; O2SAT 95
--- NOTE | 2021-12-15 05:34 | ED_ITS ---
HPI - Back Pain/Injury <Abigail Rowley, DO - Last Filed: 12/16/21 03:02> General Chief Complaint: Back Pain/Injury Stated Complaint: back pain/ anxiety Time Seen by Provider: 12/15/21 05:21 Source: patient History of Present Illness HPI Narrative: This is a 41-year-old female who comes with complaint of back pain particularly on the right side and radiating down her leg that is been worsening for the past week and a half. Patient has typically had lower back pain in the tailbone region but this is slightly different location. She does not normally have radiation down her leg towards her knee. She has had some tingling. She has n ot had any complete loss of sensation. No saddle anesthesia. She denies loss of bowel or bladder control that is new. She denies fevers or chills. She does note some abdominal pain. No nausea or vomiting. No new diarrhea. Patient has had back injections but she states these have occurred remotely. She does take medications for mental health, PTSD, asthma, hypertension, ulcers and persistent tachycardia. Patient states she has had and hip issues. Patient has had multiple abdominal surgeries including partial hysterectomy, bladder suspension, lap choly in ex lap. She denies tobacco, denies alcohol or illicit. She states she is disabled and has difficulty walking normally by her pain is made it harder. She also has 2 children who are disabled and they have a caregiver that comes during the days to assist. Related Data Previous Rx's Medication Instructions Recorded magnesium oxide 500 mg tablet See Rx Instructions .ROUTE 12/22/20 .COMPLEX #180 tablet levalbuterol HCl 1.25 mg/3 mL See Rx Instructions .ROUTE 04/09/21 solution for nebulization .COMPLEX #300 milliliter melatonin 3 mg tablet,extended See Rx Instructions PO .COMPLEX 05/03/21 release #90 tab lisinopril 40 mg tablet See Rx Instructions .ROUTE 05/23/21 .COMPLEX #90 tab lidocaine 5 % topical ointment 1 applic TOPICAL BID PRN #50 gram 06/04/21 nystatin 100,000 unit/gram topical 1 applic TOPICAL TID #60 g 06/04/21 powder umeclidinium 62.5 mcg/actuation 1 inh INHALATION DAILY #60 ea 06/04/21 blister powder for inhalation (Incruse Ellipta) albuterol sulfate 90 mcg/actuation 2 puff INHALATION Q4-6H PRN #8.5 g 06/27/21 aerosol inhaler (ProAir HFA) nystatin 100,000 unit/gram topical 1 applic TOPICAL TID #30 g 08/27/21 ointment Dupixent Syringe 300 mg/2 mL See Rx Instructions .ROUTE 09/17/21 subcutaneous syringe (dupilumab) .COMPLEX #4 ml NS montelukast 10 mg tablet See Rx Instructions .ROUTE 10/10/21 .COMPLEX #90 tab gabapentin 600 mg tablet 600 mg PO BID #120 tab MDD 1500 mg 11/06/21 epinephrine 0.3 mg/0.3 mL See Rx Instructions .ROUTE 11/20/21 injection, auto-injector .COMPLEX #2 ea baclofen 20 mg tablet See Rx Instructions .ROUTE 11/26/21 .COMPLEX #60 tab buspirone 15 mg tablet 15 mg PO BEDTIME #90 tab 11/26/21 buspirone 15 mg tablet 15 mg PO BEDTIME #90 tab 11/26/21 cholecalciferol (vitamin D3) 100 2,000 unit PO BID #180 cap 11/26/21 mcg (4,000 unit) capsule diazepam 5 mg tablet 5 mg PO TID #90 tab 11/26/21 gabapentin 300 mg capsule 300 mg PO DAILY #90 cap MDD 1500mg 11/26/21 hydroxyzine HCl 50 mg tablet 50 mg PO TID PRN #180 tab 11/26/21 lamotrigine 200 mg tablet 200 mg PO DAILY #90 tab 11/26/21 prazosin 2 mg capsule 4 mg PO BEDTIME #60 cap 11/26/21 vortioxetine 20 mg tablet 20 mg PO DAILY #90 tab 11/26/21 (Trintellix) ondansetron 8 mg disintegrating 8 mg PO Q8H PRN #90 tab 11/27/21 tablet omeprazole 40 mg capsule,delayed See Rx Instructions .ROUTE 12/05/21 release .COMPLEX #60 capsule fluticasone furoate 200 See Rx Instructions .ROUTE 12/13/21 mcg-vilanterol 25 mcg/dose .COMPLEX #60 ea inhalation powder (Breo Ellipta) acetaminophen 500 mg tablet 1,000 mg PO Q6H PRN #60 tab 12/15/21 Allergies Allergy/AdvReac Type Severity Reaction Status Date / Time bupropion [BUPROPION] Allergy Mild facial rash Verified 11/26/21 12:50 hydrocodone [HYDROCODONE] Allergy Mild rash Verified 11/26/21 12:50 iodine [IODINE] Allergy Mild edema Verified 11/26/21 12:50 lithium AdvReac Severe suicidal Verified 11/26/21 13:23 thoughts lorazepam AdvReac Severe worsens Verified 11/26/21 13:25 panic Review of Systems <Abigail Rowley DO - Last Filed: 12/16/21 03:02> Review of Systems ROS Unobtainable: All systems reviewed & are unremarkable except as noted in HPI and below Patient History <Abigail Rowley DO - Last Filed: 12/16/21 03:02> Medical History Abnormal Pap smear of cervix Agoraphobia Anal fissure (01/24/12) Anemia Anxiety Aspirin overdose Asthma Asthma with allergic rhinitis BRCA negative Bursitis of left hip Chronic back pain Chronic cough Chronic headaches Corneal pigmentation of both eyes Depression Endometriosis Essential (primary) hypertension Fibromyalgia Frequent UTI Gastric ulcer Gastroparesis GERD (gastroesophageal reflux disease) GI bleeding Hayfever Hearing loss Hemorrhoids History of heavy periods History of partial hysterectomy (01/04/16) History of recurrent ear infection History of tilt table evaluation (05/02/15) IBS (irritable bowel syndrome) Interstitial cystitis Irregular periods/menstrual cycles Kidney infection (2002) [place] use Migraines MRSA infection Ovarian cyst Painful menstrual periods Panic attacks Partial blindness PTSD (post-traumatic stress disorder) PUD (peptic ulcer disease) Recurrent sinusitis Rheumatoid arthritis Scoliosis Suicide attempt by acetaminophen overdose Tachycardia Tinnitus Vaginal delivery Vertigo Surgical History Anesthesia complication History of bladder surgery (02/2001) History of bladder suspension procedure (06/14/13) History of colonoscopy (01/10/15) History of endoscopy (05/04/07) History of endoscopy (01/10/15) History of hip surgery (12/13/92) History of rectal surgery (01/24/12) History of third molar tooth extraction (1997) Status post appendectomy (08/1996) Status post dilation and curettage (10/2009) Status post hysterectomy (05/07/10) Status post laparoscopic cholecystectomy (03/11/06) Status post laparoscopy (1999) Status post laparoscopy (05/04/07) Family History Brother Age: 45 Back pain Brother Age: 44 Migraines Child Age: 18 Mental health problem Child Age: 17 Asperger syndrome Father Age: 68 Anger Mother Age: 62 Hypothyroidism Anxiety Stroke Sister Age: 45 Thyroid cancer Brain tumor Grandfather No problems noted. Grandmother Brain tumor Grandfather No problems noted. Grandmother Ovarian cancer Social History marital status: number of children: 2 household members: children lives independently: Yes caregiver/support person: Yes housing: house Smoking Status: Never smoker second hand exposure: No alcohol intake: never substance use type: does not use Smoking Status: Never smoker alcohol intake frequency: 0-2 drinks per day Substance Use Type: does not use Exam <Abigail Rowley DO - Last Filed: 12/16/21 03:02> Narrative Exam Narrative: GENERAL: Alert and oriented x three, obese female in [id number] distress. HEENT: Head normocephalic, atraumatic, EOMI, pupils reactive, face symmetric, moist mucous membranes NECK: Supple, full range of motion CARDIOVASCULAR: Regular rate and rhythm without murmurs, rubs or gallops. RESPIRATORY: Breath sounds equal bilaterally, no wheezes rales or rhonchi. ABDOMEN: Soft, right lower quadrant tenderness. Normoactive bowel sounds all 4 quadrants. No guarding or rebound, rigidity, no mass : No CVA tenderness BACK: No cervical, thoracic vertebral point tenderness. Patient does have L3/L4 tenderness. Patient has decreased range of motion. Rectal exam is deferred. Muscle strength is 5/5 in lower extremities, DTRs are 2/4 and lower extremities. Dorsalis pedis and tibialis pulses are 2+ and lower extremities. Sensation is intact in the lower extremities. EXTREMITIES: Normal range of motion, no clubbing or edema. Neurovascularly intact NEUROLOGICAL: Cranial nerves II through XII grossly intact. Moving all e xtremities SKIN: Warm, dry, no petechiae, no rashes or lesions. Initial Vital Signs Initial Vital Signs: Vital Signs Temperature 97.9 F 12/15/21 05:28 Pulse Rate 102 H 12/15/21 05:28 Respiratory Rate 20 12/15/21 05:28 Blood Pressure 122/56 L 12/15/21 05:28 Pulse Oximetry 95 12/15/21 05:28 <DO Markell Palmer Last Filed: 12/15/21 08:49> Initial Vital Signs Initial Vital Signs: Vital Signs Temperature 97.9 F 12/15/21 05:28 Pulse Rate 102 H 12/15/21 05:28 Respiratory Rate 20 12/15/21 05:28 Blood Pressure 122/56 L 12/15/21 05:28 Pulse Oximetry 95 12/15/21 05:28 Course <Abigail Rowley DO - Last Filed: 12/16/21 03:02> Orders Ordered: Discontinued Medications Al Hydrox/Mg Hydrox/Simethicone 20 ml/ Lidocaine HCl 15 ml 0 ml PO NOW ONE Stop: 12/15/21 08:28 Last Admin: 12/15/21 08:31 Dose: 35 ml Documented by: LALA Ketorolac Tromethamine (Ketorolac 30 Mg/Ml Vial) 30 mg IV NOW ONE Stop: 12/15/21 05:33 Last Admin: 12/15/21 06:07 Dose: 30 mg Documented by: JOSE L Vital Signs Vital signs: Vital Signs - 8 hr 12/15/21 05:28 12/15/21 06:30 12/15/21 08:23 Temperature 97.9 F Pulse Rate 102 H 92 H 99 H Respiratory Rate 20 20 Blood Pressure 122/56 L 99/65 Pulse Oximetry 95 92 83 L 12/15/21 08:24 Temperature Pulse Rate 99 H Respiratory Rate Blood Pressure 123/89 Pulse Oximetry 92 <Mer Powell DO - Last Filed: 12/15/21 08:49> Orders Ordered: Discontinued Medications Al Hydrox/Mg Hydrox/Simethicone 20 ml/ Lidocaine HCl 15 ml 0 ml PO NOW ONE Stop: 12/15/21 08:28 Last Admin: 12/15/21 08:31 Dose: 35 ml Documented by: LALA Ketorolac Tromethamine (Ketorolac 30 Mg/Ml Vial) 30 mg IV NOW ONE Stop: 12/15/21 05:33 Last Admin: 12/15/21 06:07 Dose: 30 mg Documented by: JOSE L Vital Signs Vital signs: Vital Signs - 8 hr 12/15/21 05:28 12/15/21 06:30 12/15/21 08:23 Temperature 97.9 F Pulse Rate 102 H 92 H 99 H Respiratory Rate 20 20 Blood Pressure 122/56 L 99/65 Pulse Oximetry 95 92 83 L 12/15/21 08:24 Temperature Pulse Rate 99 H Respiratory Rate Blood Pressure 123/89 Pulse Oximetry 92 MDM - Back Pain/Injury <Abigail Rowley, - Last Filed: 12/16/21 03:02> Lab Data Result diagrams: 12/15/21 05:55 12/15/21 05:55 Labs: Lab Results 12/15/21 12/15/21 Range/Units 05:55 05:55 WBC 9.2 (4.5-11.0) X10^3/uL RBC 4.49 (4.0-5.2) X10^6/uL Hgb 11.6 L (12.0-16.0) g/dL Hct 37.1 (36-46) % MCV 82.7 (80-100) fL MCH 25.9 L (26-34) PG MCHC 31.4 (30-36) % RDW 16.1 H (11.6-14.8) % Plt Count 277 (150-400) X10^3/uL Neut % (Auto) 64.2 (50-75) % Lymph % (Auto) 27.1 (25-40) % [place]corn % (Auto) 6.2 (3-14) % Eos % (Auto) 2.0 (2-4) % Baso % (Auto) 0.5 (0-2) % Neut # (Auto) 5900 (9150-8547) /uL Lymph # (Auto) 2500 (1160-0270) /uL [place]corn # (Auto) 600 (0-900) /uL Eos # (Auto) 200 (0-450) /uL Baso # (Auto) 0 (0-100) /uL Sodium 139 (137-145) mmol/L Potassium 4.2 (3.4-5.1) mmol/L Chloride 98 (98-107) mmol/L Carbon Dioxide 31 (22-32) mmol/L BUN 17 (7-17) mg/dL Creatinine 0.76 (0.52-1.04) mg/dL Estimated GFR > 60.0 (>60) mL/min BUN/Creatinine Ratio 22.4 H (6-22) Glucose 128 H (70-100) mg/dL Calcium 8.3 L (8.4-10.2) mg/dL Total Bilirubin 0.3 (0.2-1.3) mg/dL AST 19 (14-36) IU/L ALT 18 (<35) IU/L Alkaline Phosphatase 63 (38-126) U/L Total Protein 7.6 (6.3-8.2) g/dL Albumin 4.2 (3.5-5.0) g/dL Globulin 3.4 (1.7-4.1) g/dL Albumin/Globulin Ratio 1.2 (1.0-2.8) Lipase 52 (23-300) U/L Point of Care Testing Test Results Negative Urine Dip Bedside Urine Glucose Negative Bedside Urine Bilirubin - Negative Bedside Urine Ketone - Negative Urine Specific [place] 1.015 Bedside Urine Occult Blood - Negative Bedside Urine pH 6.0 Bedside Urine Protein - Negative Bedside Urine Urobilinogen - Negative Bedside Urine Nitrite - Negative Bedside Urine Leukocytes - Negative Esterase <Mer Powell, DO - Last Filed: 12/15/21 08:49> Lab Data Labs: Lab Results 12/15/21 12/15/21 Range/Units 05:55 05:55 WBC 9.2 (4.5-11.0) X10^3/uL RBC 4.49 (4.0-5.2) X10^6/uL Hgb 11.6 L (12.0-16.0) g/dL Hct 37.1 (36-46) % MCV 82.7 (80-100) fL MCH 25.9 L (26-34) PG MCHC 31.4 (30-36) % RDW 16.1 H (11.6-14.8) % Plt Count 277 (150-400) X10^3/uL Neut % (Auto) 64.2 (50-75) % Lymph % (Auto) 27.1 (25-40) % Alcorn % (Auto) 6.2 (3-14) % Eos % (Auto) 2.0 (2-4) % Baso % (Auto) 0.5 (0-2) % Neut # (Auto) 5900 (0751-1751) /uL Lymph # (Auto) 2500 (2094-3671) /uL [place]corn # (Auto) 600 (0-900) /uL Eos # (Auto) 200 (0-450) /uL Baso # (Auto) 0 (0-100) /uL Sodium 139 (137-145) mmol/L Potassium 4.2 (3.4-5.1) mmol/L Chloride 98 (98-107) mmol/L Carbon Dioxide 31 (22-32) mmol/L BUN 17 (7-17) mg/dL Creatinine 0.76 (0.52-1.04) mg/dL Estimated GFR > 60.0 (>60) mL/min BUN/Creatinine Ratio 22.4 H (6-22) Glucose 128 H (70-100) mg/dL Calcium 8.3 L (8.4-10.2) mg/dL Total Bilirubin 0.3 (0.2-1.3) mg/dL AST 19 (14-36) IU/L ALT 18 (<35) IU/L Alkaline Phosphatase 63 (38-126) U/L Total Protein 7.6 (6.3-8.2) g/dL Albumin 4.2 (3.5-5.0) g/dL Globulin 3.4 (1.7-4.1) g/dL Albumin/Globulin Ratio 1.2 (1.0-2.8) Lipase 52 (23-300) U/L Point of Care Testing Test Results Negative Urine Dip Bedside Urine Glucose Negative Bedside Urine Bilirubin - Negative Bedside Urine Ketone - Negative Urine Specific [place] 1.015 Bedside Urine Occult Blood - Negative Bedside Urine pH 6.0 Bedside Urine Protein - Negative Bedside Urine Urobilinogen - Negative Bedside Urine Nitrite - Negative Bedside Urine Leukocytes - Negative Esterase Imaging Data CT scan - abdomen/pelvis: Radiologist's Impression: PROCEDURE:? CT ABDOMEN PELVIS W CON ? INDICATIONS:? abd pain, back pain radiating down leg ? TECHNIQUE:? After the administration of IV contrast, axial sections were acquired from the lung bases to the pubic symphysis.? Coronal and sagittal reformats were performed.? For radiation dose reduction, the following was used:? automated exposure control, adjustment of mA and/or kV according to patient size. ? COMPARISON:? [facility], CT, CT CHEST HIGH RESOLUTION, 12/09/2018, 9:16.? [facility], CT, KIDNEY/ URETER/BLADDER, 03/07/2016, 11:27.? [facility], MR, L- SPINE WITHOUT CONTRAST, 05/26/2013, 16:50. ? FINDINGS:? Image quality:? This study is limited by body habitus.? ? Lung bases:? Unremarkable.? ? Heart:? No significant findings. ? ? ABDOMEN: Liver: Incidental note is made of focal fatty infiltration adjacent to the falciform ligament, which is not regarded to be pathologic.? The liver is prominent in si ze.? No suspicious focal liver lesions are seen. Gallbladder:? Removed.? ? Biliary ducts:? Unremarkable.? ? Pancreas:? Unremarkable.? ? Spleen:? The spleen is enlarged, measuring 15.5 cm AP. Incidental note is made of an accessory splenule along the anterior hilum of the primary spleen. Adrenal Glands:? Unremarkable.? ? Kidneys and Ureters:? Unremarkable.? ? ? Stomach and Bowel:? Stomach, small bowel loops, and colon are unremarkable.? Appendectomy clips are seen. Peritoneum:? No abnormal intraperitoneal fluid.? No free air.? ? Ventral Wall: ? No hernia.? Abdominal Nodes:? No retroperitoneal or mesenteric adenopathy by size criteria.? Vessels:? Aorta and inferior vena cava are normal in size.? ? PELVIS: Pelvic Organs: This patient is status post hysterectomy.? There is a 3.1 cm left ovarian cystic lesion seen, which demonstrates complex contents measuring 26 Hounsfield units. Bladder:? Unremarkable.? ? Pelvic Nodes: No enlarged lymph nodes.? Miscellaneous: No inguinal hernias are seen. ? ? ? Bones:? Mild levoconvex scoliotic curvature is noted.? At L3-L4, there is moderate loss of disc height, with a central disc bulge.? Moderate bilateral neural foraminal narrowing can be seen at this level.? Moderate central canal narrowing is seen.? At L4-5, the disc height is relatively well preserved.? Mild to moderate disc bulge is seen.? There is moderate to severe right-sided neural foraminal narrowing, with associated compression upon the exiting right L4 nerve root.? Moderate left-sided neural foraminal narrowing is seen. Mild central canal narrowing is seen.? At L5-S1, there is moderate loss of disc height.? Mild disc bulge is seen. Moderate bilateral neural foraminal narrowing is seen.? No significant central canal narrowing is seen.? ? ? IMPRESSION:? Likely complex cyst of the left ovary.? Please consider follow-up pelvic ultrasound for further evaluation. ? Lower lumbar spine degenerative changes are seen, including moderate to severe right-sided neural foraminal narrowing at L4-L5, with associated compression upon exiting right L4 nerve root. If it would be helpful for clinical management decision making, please consider a dedicated, scheduled lumbar spine MRI for further evaluation (assuming that there is no contraindication).? ? ? Incidental note is made of: Enlarged liver with focal fatty infiltration Cholecystectomy Splenomegaly Accessory splenule Appendectomy Hysterectomy Levoconvex scoliotic curvature ? Note: No significant discrepancy from the preliminary report. ? Dictated by: Curry Cruz M.D. on 12/15/2021 at 6:46 ? ? Approved by: Curry Cruz M.D. on 12/15/2021 at 6:53 MDM Narrative Medical decision making narrative: Received sign-out from Dr. Rowley. I have seen and evaluated patient myself. She is lying on her left side. Complaining of pain in her right lower lumbar area. Radiating down into her groin. CT does find incidental left ovarian cyst but no abnormality on the right. She does not have any infection. Her pain has improved significantly with Toradol. She does ambulate but require some assistance. Does request for for Tylenol. Discharge Plan Departure Patient Disposition: Home Clinical Impression: Acute low back pain with sciatica Instructions: DI for Back Pain With Sciatica Activity Restrictions/Additional Instructions: Follow up with your physician for recheck. *You have been diagnosed with back pain *What to do: You were incidentally found have a left ovarian cyst. However the right side pain you are experiencing is probably a muscle. Recommend heating pad light stretching or massage. *Continue to take medications as directed Tylenol 1000mg every 6 hours if needed for pain--> Sent to [facility] *Follow up with your primary care provider in 2-3 days or call [phone] *Return to ER if you should have increasing pain, loss of stool or urine or any new, worsening or concerning symptoms Prescriptions: New acetaminophen 500 mg tablet 1,000 mg PO Q6H PRN (Reason: fever or pain) Qty: 60 0RF No Action prazosin 2 mg capsule 4 mg PO BEDTIME Qty: 60 1RF Rx Instructions: 11/26/21 dose increase, new pill size buspirone 15 mg tablet 15 mg PO BEDTIME Qty: 90 1RF gabapentin 300 mg capsule 300 mg PO DAILY MDD 1500mg Qty: 90 1RF Rx Instructions: take 1 cap in the afternoon hydroxyzine HCl 50 mg tablet 50 mg PO TID PRN (Reason: anxiety) Qty: 180 1RF lamotrigine 200 mg tablet 200 mg PO DAILY Qty: 90 1RF Trintellix 20 mg tablet 20 mg PO DAILY Qty: 90 1RF buspirone 15 mg tablet 15 mg PO BEDTIME Qty: 90 3RF Rx Instructions: Take 1 tab p.o. at bedtime. diazepam 5 mg tablet 5 mg PO TID Qty: 90 5RF baclofen 20 mg tablet See Rx Instructions .ROUTE .COMPLEX Qty: 60 2RF Dose Instruction: TAKE 2 TABLETS BY MOUTH AT BEDTIME. Rx Instructions: TAKE 2 TABLETS BY MOUTH AT BEDTIME. Vitamin D3 100 mcg (4,000 unit) capsule 2,000 unit PO BID Qty: 180 1RF melatonin 3 mg tablet extended release See Rx Instructions PO .COMPLEX Qty: 90 3RF Rx Instructions: Take 1 tab PO together with buspirone 15 mg at bedtime. magnesium oxide 500 mg tablet See Rx Instructions .ROUTE .COMPLEX Qty: 180 0RF Dose Instruction: TAKE 2 TABLETS BY MOUTH AT BEDTIME Rx Instructions: TAKE 2 TABLETS BY MOUTH AT BEDTIME levalbuterol HCl 1.25 mg/3 mL solution for nebulization See Rx Instructions .ROUTE .COMPLEX Qty: 300 5RF Dose Instruction: INHALE THE CONTENTS OF 1 VIAL VIA NEBULIZER EVERY 4 HOURS NEEDED FOR WHEEZING Rx Instructions: INHALE THE CONTENTS OF 1 VIAL VIA NEBULIZER EVERY 4 HOURS NEEDED FOR WHEEZING lisinopril 40 mg tablet See Rx Instructions .ROUTE .COMPLEX Qty: 90 1RF Dose Instruction: TAKE 1 TABLET BY MOUTH DAILY Rx Instructions: TAKE 1 TABLET BY MOUTH DAILY nystatin 100,000 unit/gram powder 1 applic topical TID Qty: 60 3RF lidocaine 5 % ointment 1 applic topical BID PRN (Reason: pain) Qty: 50 1RF Rx Instructions: 1 APPLICATION TOPICALLY TWICE DAILY NEEDED FOR PAIN Incruse Ellipta 62.5 mcg/actuation blister with device 1 inh INHALATION DAILY Qty: 60 3RF albuterol sulfate [ProAir HFA] 90 mcg/actuation HFA aerosol inhaler 2 puff INHALATION Q4-6H PRN (Reason: Shortness Of Breath) Qty: 8.5 1RF nystatin 100,000 unit/gram ointment 1 applic topical TID Qty: 30 1RF Dupixent Syringe 300 mg/2 mL syringe See Rx Instructions .ROUTE .COMPLEX Qty: 4 11RF Dose Instruction: INJECT 1 SYRINGE(300 MG) UNDER THE SKIN EVERY 14 DAYS Rx Instructions: INJECT 1 SYRINGE(300 MG) UNDER THE SKIN EVERY 14 DAYS montelukast 10 mg tablet See Rx Instructions .ROUTE .COMPLEX Qty: 90 2RF Dose Instruction: TAKE 1 TABLET BY MOUTH AT BEDTIME Rx Instructions: TAKE 1 TABLET BY MOUTH AT BEDTIME gabapentin 600 mg tablet 600 mg PO BID MDD 1500 mg Qty: 120 2RF Rx Instructions: take 1 tab in the am and 1 tab at night epinephrine 0.3 mg/0.3 mL auto-injector See Rx Instructions .ROUTE .COMPLEX Qty: 2 1RF Dose Instruction: INJECT 0.3 MLS (0.3 MG TOTAL) INTO THE MUSCLE ONCE NEEDED Rx Instructions: INJECT 0.3 MLS (0.3 MG TOTAL) INTO THE MUSCLE ONCE NEEDED ondansetron 8 mg tablet,disintegrating 8 mg PO Q8H PRN (Reason: nausea and vomiting) Qty: 90 2RF Rx Instructions: Dissolve 1 tab in mouth every 8 hours as needed for nausea and vomiting. omeprazole 40 mg capsule,delayed release(DR/EC) See Rx Instructions .ROUTE .COMPLEX Qty: 60 1RF Dose Instruction: TAKE 1 CAPSULE BY MOUTH TWICE DAILY Rx Instructions: TAKE 1 CAPSULE BY MOUTH TWICE DAILY Breo Ellipta 200-25 mcg/dose blister with device See Rx Instructions .ROUTE .COMPLEX Qty: 60 2RF Dose Instruction: INHALE ONE INHALATION EVERY NIGHT AT BEDTIME Rx Instructions: INHALE ONE INHALATION EVERY NIGHT AT BEDTIME Referrals: Rolanda Raymond MD [Primary Care Provider] -
--- NOTE | 2021-12-15 05:39 | DI.CT.S_ITS ---
PROCEDURE: CT ABDOMEN PELVIS W CON INDICATIONS: abd pain, back pain radiating down leg TECHNIQUE: After the administration of IV contrast, axial sections were acquired from the lung bases to the pubic symphysis. Coronal and sagittal reformats were performed. For radiation dose reduction, the following was used: automated exposure control, adjustment of mA and/or kV according to patient size. COMPARISON: [facility], CT, CT CHEST HIGH RESOLUTION, 12/09/2018, 9:16. [facility], CT, KIDNEY/ URETER/BLADDER, 03/07/2016, 11:27. [facility], MR, L-SPINE WITHOUT CONTRAST, 05/26/2013, 16:50. FINDINGS: Image quality: This study is limited by body habitus. Lung bases: Unremarkable. Heart: No significant findings. ABDOMEN: Liver: Incidental note is made of focal fatty infiltration adjacent to the falciform ligament, which is not regarded to be pathologic. The liver is prominent in size. No suspicious focal liver lesions are seen. Gallbladder: Removed. Biliary ducts: Unremarkable. Pancreas: Unremarkable. Spleen: The spleen is enlarged, measuring 15.5 cm AP. Incidental note is made of an accessory splenule along the anterior hilum of the primary spleen. Adrenal Glands: Unremarkable. Kidneys and Ureters: Unremarkable. Stomach and Bowel: Stomach, small bowel loops, and colon are unremarkable. Appendectomy clips are seen. Peritoneum: No abnormal intraperitoneal fluid. No free air. Ventral Wall: No hernia. Abdominal Nodes: No retroperitoneal or mesenteric adenopathy by size criteria. Vessels: Aorta and inferior vena cava are normal in size. PELVIS: Pelvic Organs: This patient is status post hysterectomy. There is a 3.1 cm left ovarian cystic lesion seen, which demonstrates complex contents measuring 26 Hounsfield units. Bladder: Unremarkable. Pelvic Nodes: No enlarged lymph nodes. Miscellaneous: No inguinal hernias are seen. Bones: Mild levoconvex scoliotic curvature is noted. At L3-L4, there is moderate loss of disc height, with a central disc bulge. Moderate bilateral neural foraminal narrowing can be seen at this level. Moderate central canal narrowing is seen. At L4-5, the disc height is relatively well preserved. Mild to moderate disc bulge is seen. There is moderate to severe right-sided neural foraminal narrowing, with associated compression upon the exiting right L4 nerve root. Moderate left-sided neural foraminal narrowing is seen. Mild central canal narrowing is seen. At L5-S1, there is moderate loss of disc height. Mild disc bulge is seen. Moderate bilateral neural foraminal narrowing is seen. No significant central canal narrowing is seen. IMPRESSION: Likely complex cyst of the left ovary. Please consider follow-up pelvic ultrasound for further evaluation. Lower lumbar spine degenerative changes are seen, including moderate to severe right-sided neural foraminal narrowing at L4-L5, with associated compression upon exiting right L4 nerve root. If it would be helpful for clinical management decision making, please consider a dedicated, scheduled lumbar spine MRI for further evaluation (assuming that there is no contraindication). Incidental note is made of: Enlarged liver with focal fatty infiltration Cholecystectomy Splenomegaly Accessory splenule Appendectomy Hysterectomy Levoconvex scoliotic curvature Note: No significant discrepancy from the preliminary report. Dictated by: Curry Cruz M.D. on 12/15/2021 at 6:46 Approved by: Curry Cruz M.D. on 12/15/2021 at 6:53
[2021-12-15 06:06] LABS: Add Manual Diff / Slide Review NO; Basophils Absolute Auto 0 /uL (0-100); Basophils Percent Auto 0.5 % (0-2); Eosinophils Absolute Auto 200 /uL (0-450); Hematocrit 37.1 % (36-46); Hemoglobin 11.6 g/dL (12.0-16.0); Lymphocytes Absolute Auto 2500 /uL (1100-4500); Lymphocytes Percent Auto 27.1 % (25-40); Mean Corpuscular HGB Conc 31.4 % (30-36); Mean Corpuscular Hemoglobin 25.9 PG (26-34); Mean Corpuscular Volume 82.7 fL (80-100); Monocytes Absolute Auto 600 /uL (0-900); Monocytes Percent Auto 6.2 % (3-14); Neutrophils Absolute Auto 5900 /uL (1500-7000); Neutrophils Percent Auto 64.2 % (50-75); Platelet Count 277 X10^3/uL (150-400); Red Blood Cell Count 4.49 X10^6/uL (4.0-5.2); Red Cell Distribution Width 16.1 % (11.6-14.8); White Blood Cell Count 9.2 X10^3/uL (4.5-11.0)
[2021-12-15] MEDS: KETOROLAC 30 MG/ML VIAL IV (06:07)
[2021-12-15 06:19] LABS: Alanine Aminotransferase 18 IU/L (<35); Albumin 4.2 g/dL (3.5-5.0); Albumin Globulin Ratio 1.2 (1.0-2.8); Alkaline Phosphatase 63 U/L (38-126); Aspartate Aminotransferase 19 IU/L (14-36); BUN Creatinine Ratio 22.4 (6-22); Bilirubin Total 0.3 mg/dL (0.2-1.3); Blood Urea Nitrogen 17 mg/dL (7-17); Calcium 8.3 mg/dL (8.4-10.2); Carbon Dioxide 31 mmol/L (22-32); Chloride 98 mmol/L (98-107); Estimated Glomerular Filt Rate > 60.0 mL/min (>60); Globulin 3.4 g/dL (1.7-4.1); Glucose 128 mg/dL (70-100); HEMOLYSIS < 15 (0-50); Lipase 52 U/L (23-300); Potassium 4.2 mmol/L (3.4-5.1); Sodium 139 mmol/L (137-145); Total Protein 7.6 g/dL (6.3-8.2)
[2021-12-15 06:30] VITALS: BP 99/65; PULSE 92; RESP 20; O2SAT 92
--- NOTE | 2021-12-15 07:03 | PC.NURSE ---
her oxygen sats dropped into the 8o,s and oxygen via cannula applied at 2 liters at minute.
[2021-12-15 08:23] VITALS: PULSE 99; O2SAT 83
[2021-12-15 08:24] VITALS: BP 123/89; PULSE 99; O2SAT 92
[2021-12-15] MEDS: MAG HYDROX/ALUMINUM/SIMETH SUS 20 ML, LIDOCAINE VISCOUS 2% 15 ML PO (08:31)
== END 2021-12-15 08:37 | disposition home or self-care (01) ==
PROVIDERS: Emergency Medicine; Emergency Provider Emergency Medicine; PCP Family Medicine
DX: M54.41 Lumbago with sciatica, right side (principal)
CPT/HCPCS: 36415; 74177; 80053; 81003; 81025; 83690; 85025; 96374; 99284; J1885; Q9967

== ENCOUNTER → 2022-01-15 14:06 | Outpatient (CLI) | payer MEDICARE, MEDICAID, SELFPAY ==
[2021-11-21 14:51] VITALS: BMI 51.2
--- NOTE | 2022-01-15 14:10 | DI.US.S_ITS ---
PROCEDURE: US PELVIC COMPLETE INDICATIONS: LT PELVIC PAIN WITH HISTORY OF CYST TECHNIQUE: Real-time scanning was performed of the pelvic organs, with image documentation. Additional endovaginal scanning was necessary due to incomplete visualization of the adnexal and endometrial structures by transabdominal scanning. COMPARISON: [facility], CT, KIDNEY/ URETER/BLADDER, 03/07/2016, 11:27. [facility], US, PELVIC COMPLETE, 09/10/2010, 13:01. [facility], CR, KUB, 12/07/2014, 15:58. [facility], CT, CT ABDOMEN PELVIS W CON, 12/15/2021, 6:31. 12/15/2021 CT abdomen and pelvis FINDINGS: Uterus: Status post hysterectomy. Ovaries: Neither ovary is identified. The chemical lab technician reports that the exam is limited by patient body habitus. Other: No pathologic free abdominal or pelvic fluid. IMPRESSION: Limited study with nonvisualization of both ovaries. No cystic structure is visualized to correspond with the previously reported left adnexal/ovarian cyst. Of note, the cyst in the left ovary seen on 12/15/2021 examination is unchanged from an examination performed 03/07/2016. Given the lack of change since two thousand sixteen this is almost certainly a benign entity and is of unlikely clinical significance. We strive to produce accurate, complete, and clear reports of imaging services. To assist us in improving patient care, this report was composed using standard report templates and voice recognition software. Therefore, it may contain abnormal punctuation, insertions and/or omissions. Occasional wrong-word or sound-alike substitutions may occur. Though we review the report and make efforts to correct it, we do recommend that the report be read carefully in proper context to recognize any text inaccuracies. Dictated by: Matty Rascon M.D. on 01/15/2022 at 20:35 Approved by: Matty Rascon M.D. on 01/15/2022 at 20:39
== END ==
PROVIDERS: PCP Family Medicine; Referring Provider Family Medicine; Visit Provider Family Medicine
DX: R10.2 Pelvic and perineal pain (principal); N83.202 Unspecified ovarian cyst, left side; Z90.710 Acquired absence of both cervix and uterus
CPT/HCPCS: 76830; 76856

== ENCOUNTER 2022-05-12 17:07 | Inpatient (IN) | payer MEDICARE, MEDICAID, SELFPAY ==
[2021-11-21 14:51] VITALS: BMI 51.2
[2022-05-12] VITALS (11 sets, daily range): BP systolic 146–181; BP diastolic 76–81; PULSE 87–104; RESP 13–22; TEMP 37.2; O2SAT 87–97; BMI 53.1
--- NOTE | 2022-05-12 17:21 | DI.RAD.S_ITS ---
PROCEDURE: XR CHEST 2V INDICATIONS: shortness of breath TECHNIQUE: 2 views of the chest were acquired. COMPARISON: [facility], , XR CHEST 1V, 06/23/2019, 19:49. FINDINGS: Surgical changes and devices: None. Lungs and pleura: Near complete white out of the lungs, left greater than right with basilar gradient. No focal consolidation. No pneumothorax. Mediastinum: Cardiomegaly. Bones and chest wall: No suspicious bony abnormalities. Soft tissues appear unremarkable. IMPRESSION: 1. Diffuse cardiomegaly. 2. Gradient layering opacity over the left lung concerning for pleural effusion but may be artifactual from soft tissue attenuation. Cannot exclude airspace disease Dictated by: Jose Rascon M.D. on 05/12/2022 at 17:10 Approved by: Jose Rascon M.D. on 05/12/2022 at 17:14
[2022-05-12 17:27] LABS: COVID19 -Nasal RAPID Negative (Negative)
[2022-05-12 17:28] LABS: Add Manual Diff / Slide Review NO; Basophils Absolute Auto 100 /uL (0-100); Basophils Percent Auto 0.7 % (0-2); Eosinophils Absolute Auto 300 /uL (0-450); Eosinophils Percent Auto 2.8 % (2-4); Hematocrit 34.5 % (36-46); Hemoglobin 10.9 g/dL (12.0-16.0); Lymphocytes Absolute Auto 2400 /uL (1100-4500); Lymphocytes Percent Auto 23.4 % (25-40); Mean Corpuscular HGB Conc 31.7 % (30-36); Mean Corpuscular Hemoglobin 25.4 PG (26-34); Mean Corpuscular Volume 80.1 fL (80-100); Monocytes Absolute Auto 600 /uL (0-900); Monocytes Percent Auto 5.7 % (3-14); Neutrophils Absolute Auto 7000 /uL (1500-7000); Neutrophils Percent Auto 67.4 % (50-75); Platelet Count 288 X10^3/uL (150-400); Red Blood Cell Count 4.31 X10^6/uL (4.0-5.2); Red Cell Distribution Width 17.1 % (11.6-14.8); White Blood Cell Count 10.4 X10^3/uL (4.5-11.0)
[2022-05-12 17:36] LABS: Lactate (Lactic Acid) 2.2 mmol/L (0.7-2.1)
[2022-05-12 17:37] LABS: Alanine Aminotransferase 21 IU/L (<35); Albumin 4.2 g/dL (3.5-5.0); Albumin Globulin Ratio 1.1 (1.0-2.8); Alkaline Phosphatase 71 U/L (38-126); Aspartate Aminotransferase 22 IU/L (14-36); BUN Creatinine Ratio 23.2 (6-22); Bilirubin Total 0.3 mg/dL (0.2-1.3); Blood Urea Nitrogen 16 mg/dL (7-17); Calcium 8.6 mg/dL (8.4-10.2); Carbon Dioxide 34 mmol/L (22-32); Chloride 98 mmol/L (98-107); Estimated Glomerular Filt Rate > 60 mL/min (>60); Globulin 3.8 g/dL (1.7-4.1); Glucose 107 mg/dL (70-100); HEMOLYSIS < 15 (0-50); Potassium 4.4 mmol/L (3.4-5.1); Sodium 138 mmol/L (137-145)
[2022-05-12 19:24] LABS: Reflexed Lactate in 2 Hours Y
--- NOTE | 2022-05-12 19:50 | ED.SOB ---
HPI - SOB/Dyspnea General Chief Complaint: Shortness of Breath/Dyspnea Stated Complaint: COPD, SOB Time Seen by Provider: 05/12/22 18:22 History of Present Illness HPI Narrative: 42-year-old female nonsmoker with history of COPD and asthma, as well as chronic fatigue, PTSD, hypertension presents for evaluation of shortness of breath that has been increasing for many months. She states exertion and coughing worsens or shortness of breath. She is had some nasal congestion and sneezing as well as dry cough. She denies any chest pain, fever or chills. She denies any sputum production. She denies nausea, vomiting or diarrhea. She states that she is been taking her medications as directed. She does not use a spacer with her rescue inhaler because she does not have 1. Related Data Home Medications Medication Instructions Recorded Confirmed gabapentin 300 mg capsule 300 mg PO DIRECTED 05/13/22 05/13/22 Previous Rx's Medication Instructions Recorded magnesium oxide 500 mg tablet See Rx Instructions .Route 12/22/20 .COMPLEX #180 tabs levalbuterol HCl 1.25 mg/3 mL See Rx Instructions .Route 04/09/21 solution for nebulization .COMPLEX #300 mL melatonin 3 mg tablet,extended See Rx Instructions PO .COMPLEX 05/03/21 release #90 tabs nystatin 100,000 unit/gram topical 1 applic topical TID #60 grams 06/04/21 powder nystatin 100,000 unit/gram topical 1 applic topical TID #30 grams 08/27/21 ointment Dupixent Syringe 300 mg/2 mL See Rx Instructions .Route 09/17/21 subcutaneous syringe (dupilumab) .COMPLEX #4 mL montelukast 10 mg tablet See Rx Instructions .Route 10/10/21 .COMPLEX #90 tabs gabapentin 600 mg tablet 600 mg PO BID #120 tabs 11/06/21 epinephrine 0.3 mg/0.3 mL See Rx Instructions .Route 11/20/21 injection, auto-injector .COMPLEX #2 ea cholecalciferol (vitamin D3) 100 2,000 unit PO BID #180 caps 11/26/21 mcg (4,000 unit) capsule gabapentin 300 mg capsule 300 mg PO DAILY #90 caps 11/26/21 lidocaine 5 % topical ointment See Rx Instructions .Route 12/17/21 .COMPLEX #49.222 grams lisinopril 40 mg tablet See Rx Instructions .Route 02/13/22 .COMPLEX #90 tabs umeclidinium 62.5 mcg/actuation See Rx Instructions .Route 02/15/22 blister powder for inhalation .COMPLEX #60 ea (Incruse Ellipta) fluticasone furoate 200 See Rx Instructions .Route 03/18/22 mcg-vilanterol 25 mcg/dose .COMPLEX #60 ea inhalation powder (Breo Ellipta) albuterol sulfate 90 mcg/actuation 2 puff inhalation Q4-6H PRN 03/19/22 aerosol inhaler (ProAir HFA) Shortness Of Breath #8.5 grams baclofen 20 mg tablet See Rx Instructions .Route 04/10/22 .COMPLEX #60 tabs hydroxyzine HCl 50 mg tablet See Rx Instructions .Route 04/12/22 .COMPLEX #180 tabs diazepam 5 mg tablet 5 mg PO TID #90 tabs 05/07/22 lamotrigine 200 mg tablet 200 mg PO DAILY #90 tabs 05/07/22 prazosin 2 mg capsule 4 mg PO BEDTIME #60 caps 05/07/22 vortioxetine 20 mg tablet 20 mg PO DAILY #90 tabs 05/07/22 (Trintellix) omeprazole 40 mg capsule,delayed See Rx Instructions .Route 05/08/22 release .COMPLEX #180 caps ondansetron 8 mg disintegrating 8 mg PO Q8H PRN nausea and 05/08/22 tablet vomiting #90 tabs prednisone 20 mg tablet 60 mg PO DAILY #40 tabs 05/13/22 Allergies Allergy/AdvReac Type Severity Reaction Status Date / Time bupropion [BUPROPION] Allergy Mild facial rash Verified 11/26/21 12:50 hydrocodone [HYDROCODONE] Allergy Mild rash Verified 11/26/21 12:50 iodine [IODINE] Allergy Mild edema Verified 11/26/21 12:50 lithium AdvReac Severe suicidal Verified 11/26/21 13:23 thoughts lorazepam AdvReac Severe worsens Verified 11/26/21 13:25 panic trazodone AdvReac Severe suicidal Verified 05/13/22 08:54 thoughts diphenhydramine AdvReac Intermediate panic Verified 05/13/22 08:54 [From Benadryl] attacks Review of Systems Review of Systems Narrative: GENERAL: Denies chills, fatigue, malaise, fever, sweats. HEENT: See HPI RESPIRATORY: See HPI CARDIOVASCULAR: Denies chest pain, palpitations, orthopnea, edema, GASTROINTESTINAL: Denies nausea, vomiting, abdominal pain, diarrhea, constipation, melena. : Denies dysuria, frequency, incontinence, hematuria, urinary retention. MUSCULOSKELETAL: denies weakness, joint pain, or bony pain SKIN: Denies rash, skin lesions, or other NEUROLOGIC: Denies weakness, headache, numbness, change in speech, confusion, seizures, incoordination. PSYCHIATRIC: No concerning psychosocial issues. 12 point review of systems is negative except for those stated above Patient History Medical History Abnormal Pap smear of cervix Agoraphobia Anal fissure (01/24/12) Anemia Anxiety Aspirin overdose Asthma Asthma with allergic rhinitis BRCA negative Bursitis of left hip Chronic back pain Chronic cough Chronic headaches Chronic interstitial cystitis (01/04/16) Chronic migraine Corneal pigmentation of both eyes Depression Endometriosis Essential (primary) hypertension Fibromyalgia Frequent UTI Gastric ulcer Gastroparesis GERD (gastroesophageal reflux disease) GI bleeding Hayfever Hearing loss Hemorrhoids History of fracture of hip (01/04/16) History of gastrointestinal hemorrhage (01/04/16) History of heavy periods History of partial hysterectomy (01/04/16) History of recurrent ear infection History of tilt table evaluation (05/02/15) IBS (irritable bowel syndrome) Interstitial cystitis Irregular periods/menstrual cycles Irritable bowel syndrome with diarrhea (01/04/16) Kidney infection (2002) [place] use Migraines MRSA infection Nondiabetic gastroparesis (01/04/16) Ovarian cyst Painful menstrual periods Panic attacks Partial blindness PTSD (post-traumatic stress disorder) PUD (peptic ulcer disease) Recurrent sinusitis Rheumatoid arthritis Scoliosis Suicide attempt by acetaminophen overdose Tachycardia Tinnitus Vaginal delivery Vertigo Surgical History Anesthesia complication History of bladder surgery (02/2001) History of bladder suspension procedure (06/14/13) History of colonoscopy (01/10/15) History of endoscopy (05/04/07) History of endoscopy (01/10/15) History of hip surgery (12/13/92) History of rectal surgery (01/24/12) History of third molar tooth extraction (1997) Status post appendectomy (08/1996) Status post dilation and curettage (10/2009) Status post hysterectomy (05/07/10) Status post laparoscopic cholecystectomy (03/11/06) Status post laparoscopy (1999) Status post laparoscopy (05/04/07) Family History Brother Age: 46 Back pain Brother Age: 45 Migraines Child Age: 19 Mental health problem Child Age: 18 Asperger syndrome Father Age: 69 Anger Mother Age: 63 Hypothyroidism Anxiety Stroke Sister Age: 46 Thyroid cancer Brain tumor Grandfather No problems noted. Grandmother Brain tumor Grandfather No problems noted. Grandmother Ovarian cancer Social History marital status: number of children: 2 household members: children lives independently: Yes caregiver/support person: Yes housing: house Smoking Status: Never smoker second hand exposure: No alcohol intake: never substance use type: does not use Smoking Status: Never smoker alcohol intake frequency: 0-2 drinks per day Substance Use Type: does not use Exam Narrative Exam Narrative: GENERAL: [42] year old patient appears stated age. Well-developed patient, in mild distress. No obvious evidence of respiratory distress, no tachypnea or use of accessory muscles HEAD: Atraumatic. Normocephalic. EYES: Pupils equal round and reactive. Extraocular motions intact. No scleral icterus. No injection or drainage. ENT: Nose without bleeding, purulent drainage. Throat without erythema, tonsillar hypertrophy or exudate. Airway patent. NECK: Trachea midline. Non tender CARDIOVASCULAR: Regular rate and rhythm without murmurs, gallops, or rubs. RESPIRATORY: Decreased breath sounds bilaterally with prolonged expiratory phase, faint crackles in bilateral bases GASTROINTESTINAL: Abdomen soft, non-tender, nondistended. EXTREMITIES: No edema or joint tenderness. BACK: Nontender without deformity or crepitance. No flank tenderness. NEURO: AOx3. SKIN: No rash or erythema of visible areas Initial Vital Signs Initial Vital Signs: Vital Signs Temperature 98.9 F 05/12/22 17:12 Pulse Rate 104 H 05/12/22 17:12 Respiratory Rate 20 05/12/22 17:12 Blood Pressure 181/81 H 05/12/22 17:12 Pulse Oximetry 87 L 05/12/22 17:12 Oxygen Delivery Method 05/12/22 17:12 Course Orders Ordered: Discontinued Medications Acetaminophen (Acetaminophen 325 Mg Tablet) 650 mg PO NOW ONE Stop: 05/13/22 03:29 Last Admin: 05/13/22 04:01 Dose: 650 mg Documented By: MAUREEN Acetaminophen (Acetaminophen 325 Mg Tablet) 975 mg PO Q8H PRN PRN Reason: Pain, Mild (1-3) Albuterol (Albuterol 2.5 Mg/3 Ml Neb (Adult)) 20 mg INH NOW ONE Stop: 05/12/22 21:00 Last Admin: 05/12/22 21:14 Dose: 20 mg Documented By: ANGELA Albuterol (Albuterol 2.5 Mg/3 Ml Neb (Adult)) 2.5 mg INH Q4HRWA [facility] Albuterol (Albuterol 2.5 Mg/3 Ml Neb (Adult)) 2.5 mg INH Q2HR PRN PRN Reason: Shortness Of Breath Albuterol/Ipratropium (Albuterol/Ipratropium 3 Ml Ampul) 3 ml INH NOW ONE Stop: 05/12/22 19:56 Last Admin: 05/12/22 20:06 Dose: 3 ml Documented By: RENETTA Albuterol/Ipratropium (Albuterol/Ipratropium 3 Ml Ampul) 3 ml INH [id number] [facility] Last Admin: 05/13/22 15:55 Dose: 3 ml Documented By: Admin: 05/13/22 11:53 Dose: 3 ml Documented By: SOLEDAD Baclofen (Baclofen 10 Mg Tablet) 40 mg PO BEDTIME [facility] Budesonide (Budesonide 0.5 Mg/2 Ml Neb) 0.5 mg INH RTBID [facility] Diazepam (Diazepam 5 Mg Tablet) 5 mg PO TID [facility] Last Admin: 05/13/22 14:32 Dose: 5 mg Documented By: Admin: 05/13/22 08:15 Dose: 5 mg Documented By: IAIN Enoxaparin Sodium (Enoxaparin 40 Mg/0.4 Ml Syringe) 40 mg SUBCUT DAILY [facility] Last Admin: 05/13/22 09:26 Dose: 40 mg Documented By: IAIN Gabapentin (Gabapentin 300 Mg Capsule) 900 mg PO DAILY [facility] Last Admin: 05/13/22 09:25 Dose: 900 mg Documented By: IAIN Gabapentin (Gabapentin 300 Mg Capsule) 300 mg PO 1500 [facility] Gabapentin (Gabapentin 300 Mg Capsule) 600 mg PO BID [facility] Hydroxyzine Pamoate (Hydroxyzine Pamoate 25 Mg Capsule) 50 mg PO TID PRN PRN Reason: Anxiety Last Admin: 05/13/22 14:32 Dose: 50 mg Documented By: Admin: 05/13/22 09:25 Dose: 50 mg Documented By: IAIN Magnesium Sulfate (Magnesium Sulfate) 2 gm in 50 mls @ 150 mls/hr IV NOW ONE Stop: 05/13/22 01:19 Last Infusion: 05/13/22 01:45 Dose: 0 mls/hr Documented By: AYDEE Co-signed By: AP Admin: 05/13/22 01:22 Dose: 150 mls/hr Documented By: AYDEE Co-signed By: KOMAL Sodium Chloride (Normal Saline 0.9%) 1,000 mls @ 125 mls/hr IV CONT [facility] Last Infusion: 05/13/22 12:52 Dose: 0 mls/hr Documented By: Admin: 05/13/22 04:12 Dose: 125 mls/hr Documented By: MAUREEN Ipratropium [place] (Ipratropium 0.5 Mg/2.5 Ml Neb) 0.5 mg INH Q4HRWA [facility] Ipratropium [place] (Ipratropium 0.5 Mg/2.5 Ml Neb) 0.5 mg INH Q2HR PRN PRN Reason: Shortness Of Breath Lamotrigine (Lamotrigine 100 Mg Tablet) 200 mg PO DAILY [facility] Last Admin: 05/13/22 09:25 Dose: 200 mg Documented By: IAIN Lisinopril (Lisinopril 20 Mg Tablet) 20 mg PO DAILY [facility] Magnesium Oxide (Magnesium Oxide 400 Mg Tablet) 1,000 mg PO NOW ONE Stop: 05/13/22 03:31 Last Admin: 05/13/22 04:11 Dose: 1,000 mg Documented By: MAUREEN Magnesium Oxide (Magnesium Oxide 400 Mg Tablet) 400 mg PO NOW ONE Stop: 05/13/22 04:16 Last Admin: 05/13/22 04:13 Dose: Not Given Documented By: MAUREEN Magnesium Oxide (Magnesium Oxide 400 Mg Tablet) 1,000 mg PO BEDTIME [facility] Melatonin (Melatonin 3 Mg Tablet) 3 mg PO BEDTIME [facility] Methylprednisolone (Methylprednisolone 125 Mg/2 Ml Vial) 125 mg IV NOW ONE Stop: 05/12/22 19:56 Last Admin: 05/12/22 20:06 Dose: 125 mg Documented By: JENARO Methylprednisolone (Methylprednisolone 125 Mg/2 Ml Vial) 80 mg IV Q8HR [facility] Last Admin: 05/13/22 13:13 Dose: 80 mg Documented By: Admin: 05/13/22 06:28 Dose: 80 mg Documented By: MAUREEN Montelukast Sodium (Montelukast 10 Mg Tablet) 10 mg PO BEDTIME [facility] Nf - Vortioxetine ( Trintellix) 20 Mg Tablet 20 mg PO DAILY [facility] Last Admin: 05/13/22 09:53 Dose: Not Given Documented By: IAIN Nystatin (Nystatin Ointment 15 Applic/Tube Oint...G.) 1 applic TOP TID [facility] Last Admin: 05/13/22 14:08 Dose: Not Given Documented By: Admin: 05/13/22 09:26 Dose: Not Given Documented By: IAIN Nystatin (Nystatin Powder 15gm) 1 applic TOP TID [facility] Last Admin: 05/13/22 14:32 Dose: 1 applic Documented By: Admin: 05/13/22 09:24 Dose: 1 applic Documented By: IAIN Ondansetron HCl (Ondansetron 4 Mg Odt) 8 mg SL NOW ONE Stop: 05/13/22 03:30 Last Admin: 05/13/22 04:00 Dose: 8 mg Documented By: MAUREEN Ondansetron HCl (Ondansetron 4 Mg Odt) 8 mg PO Q8H PRN PRN Reason: nausea and vomiting Last Admin: 05/13/22 09:25 Dose: 8 mg Documented By: IAIN Pantoprazole Sodium (Pantoprazole Dr 40 Mg Tablet) 40 mg PO NOW ONE Stop: 05/13/22 03:36 Last Admin: 05/13/22 04:01 Dose: 40 mg Documented By: MAUREEN Pantoprazole Sodium (Pantoprazole Dr 20 Mg Tablet) 20 mg PO BID [facility] Prazosin HCl (Prazosin 1 Mg Capsule) 4 mg PO BEDTIME [facility] Vitamin D (Cholecalciferol (Vitamin D3) 1,000 Unit Tablet) 2,000 unit PO BID [facility] Reevaluation(s) Reevaluation #1: Patient with minimal improvement after multiple bronchodilators and steroids Reevaluation #2: RT called and patient placed on continuous neb, minimal improvement, still requiring supplemental oxygen Reevaluation #3: Magnesium ordered, decision to admit Consultations Consultation #1: Dr. Patel happy to accept Vital Signs Vital signs: Vital Signs - 8 hr 05/12/22 19:48 05/12/22 20:27 05/12/22 21:14 Pulse Rate 94 H 88 88 Respiratory Rate 20 18 18 Blood Pressure Pulse Oximetry 97 94 94 Oxygen Delivery Method Nasal Cannula Nasal Cannula Nasal Cannula Oxygen Flow Rate 2 2 2 05/12/22 21:14 05/12/22 21:08 05/12/22 21:30 Pulse Rate 88 88 87 Respiratory Rate 18 17 Blood Pressure Pulse Oximetry 92 96 Oxygen Delivery Method Oxygen Flow Rate 05/12/22 22:00 05/12/22 22:30 05/12/22 22:37 Pulse Rate 97 H 98 H 103 H Respiratory Rate 13 18 Blood Pressure Pulse Oximetry 96 87 L Oxygen Delivery Method Oxygen Flow Rate 05/12/22 22:37 05/12/22 23:00 05/12/22 23:30 Pulse Rate 94 H 99 H Respiratory Rate 16 22 Blood Pressure 146/76 H Pulse Oximetry 94 94 94 Oxygen Delivery Method Oxygen Flow Rate 05/13/22 00:00 05/13/22 00:30 05/13/22 01:00 Pulse Rate 92 H 88 87 Respiratory Rate 16 22 18 Blood Pressure Pulse Oximetry 94 96 94 Oxygen Delivery Method Oxygen Flow Rate MDM - SOB/Dyspnea Lab Data Result diagrams: 05/12/22 17:20 05/12/22 17:20 Labs: Lab Results 05/12/22 05/12/22 05/12/22 Range/Units 17:11 17:20 17:20 WBC 10.4 (4.5-11.0) X10^3/uL RBC 4.31 (4.0-5.2) X10^6/uL Hgb 10.9 L (12.0-16.0) g/dL Hct 34.5 L (36-46) % MCV 80.1 (80-100) fL MCH 25.4 L (26-34) PG MCHC 31.7 (30-36) % RDW 17.1 H (11.6-14.8) % Plt Count 288 (150-400) X10^3/uL Neut % (Auto) 67.4 (50-75) % Lymph % (Auto) 23.4 L (25-40) % Castro % (Auto) 5.7 (3-14) % Eos % (Auto) 2.8 (2-4) % Baso % (Auto) 0.7 (0-2) % Neut # (Auto) 7000 (1290-2072) /uL Lymph # (Auto) 2400 (5503-9106) /uL Castro # (Auto) 600 (0-900) /uL Eos # (Auto) 300 (0-450) /uL Baso # (Auto) 100 (0-100) /uL D-Dimer (<500) ng/ml ABG pH (7.35-7.45) ABG pCO2 (35-45) mmHg ABG pO2 (80-100) mmHg ABG HCO3 (22-26) mmol/L ABG Total CO2 (21-31) mmol/L ABG O2 Saturation (95-100) % ABG Base Excess (-2-2) mmol/L FiO2 Sodium 138 (137-145) mmol/L Potassium 4.4 (3.4-5.1) mmol/L Chloride 98 (98-107) mmol/L Carbon Dioxide 34 H (22-32) mmol/L BUN 16 (7-17) mg/dL Creatinine 0.69 (0.52-1.04) mg/dL Estimated GFR > 60 (>60) mL/min BUN/Creatinine Ratio 23.2 H (6-22) Glucose 107 H (70-100) mg/dL Lactate (0.7-2.1) mmol/L Calcium 8.6 (8.4-10.2) mg/dL Total Bilirubin 0.3 (0.2-1.3) mg/dL AST 22 (14-36) IU/L ALT 21 (<35) IU/L Alkaline Phosphatase 71 (38-126) U/L NT-Pro-B Natriuret Pep (<125) pg/mL Total Protein 8.0 (6.3-8.2) g/dL Albumin 4.2 (3.5-5.0) g/dL Globulin 3.8 (1.7-4.1) g/dL Albumin/Globulin Ratio 1.1 (1.0-2.8) Procalcitonin (<0.5) ng/mL SARS-CoV-2 (PCR) Negative (Negative) 09/04/22 09/04/22 09/04/22 Range/Units 17:20 17:20 17:20 WBC (4.5-11.0) X10^3/uL RBC (4.0-5.2) X10^6/uL Hgb (12.0-16.0) g/dL Hct (36-46) % MCV (80-100) fL MCH (26-34) PG MCHC (30-36) % RDW (11.6-14.8) % Plt Count (150-400) X10^3/uL Neut % (Auto) (50-75) % Lymph % (Auto) (25-40) % Castro % (Auto) (3-14) % Eos % (Auto) (2-4) % Baso % (Auto) (0-2) % Neut # (Auto) (7285-3459) /uL Lymph # (Auto) (0908-8952) /uL Castro # (Auto) (0-900) /uL Eos # (Auto) (0-450) /uL Baso # (Auto) (0-100) /uL D-Dimer 288 (<500) ng/ml ABG pH (7.35-7.45) ABG pCO2 (35-45) mmHg ABG pO2 (80-100) mmHg ABG HCO3 (22-26) mmol/L ABG Total CO2 (21-31) mmol/L ABG O2 Saturation (95-100) % ABG Base Excess (-2-2) mmol/L FiO2 Sodium (137-145) mmol/L Potassium (3.4-5.1) mmol/L Chloride (98-107) mmol/L Carbon Dioxide (22-32) mmol/L BUN (7-17) mg/dL Creatinine (0.52-1.04) mg/dL Estimated GFR (>60) mL/min BUN/Creatinine Ratio (6-22) Glucose (70-100) mg/dL Lactate 2.2 H (0.7-2.1) mmol/L Calcium (8.4-10.2) mg/dL Total Bilirubin (0.2-1.3) mg/dL AST (14-36) IU/L ALT (<35) IU/L Alkaline Phosphatase (38-126) U/L NT-Pro-B Natriuret Pep 61 (<125) pg/mL Total Protein (6.3-8.2) g/dL Albumin (3.5-5.0) g/dL Globulin (1.7-4.1) g/dL Albumin/Globulin Ratio (1.0-2.8) Procalcitonin 0.07 (<0.5) ng/mL SARS-CoV-2 (PCR) (Negative) 05/12/22 05/12/22 Range/Units 19:44 23:27 WBC (4.5-11.0) X10^3/uL RBC (4.0-5.2) X10^6/uL Hgb (12.0-16.0) g/dL Hct (36-46) % MCV (80-100) fL MCH (26-34) PG MCHC (30-36) % RDW (11.6-14.8) % Plt Count (150-400) X10^3/uL Neut % (Auto) (50-75) % Lymph % (Auto) (25-40) % [place] % (Auto) (3-14) % Eos % (Auto) (2-4) % Baso % (Auto) (0-2) % Neut # (Auto) (8189-6648) /uL Lymph # (Auto) (3312-3970) /uL [place] # (Auto) (0-900) /uL Eos # (Auto) (0-450) /uL Baso # (Auto) (0-100) /uL D-Dimer (<500) ng/ml ABG pH 7.40 (7.35-7.45) ABG pCO2 54.0 H (35-45) mmHg ABG pO2 106 H (80-100) mmHg ABG HCO3 34 H (22-26) mmol/L ABG Total CO2 35 H (21-31) mmol/L ABG O2 Saturation 98 (95-100) % ABG Base Excess 9.0 H (-2-2) mmol/L FiO2 32 Sodium (137-145) mmol/L Potassium (3.4-5.1) mmol/L Chloride (98-107) mmol/L Carbon Dioxide (22-32) mmol/L BUN (7-17) mg/dL Creatinine (0.52-1.04) mg/dL Estimated GFR (>60) mL/min BUN/Creatinine Ratio (6-22) Glucose (70-100) mg/dL Lactate 1.2 (0.7-2.1) mmol/L Calcium (8.4-10.2) mg/dL Total Bilirubin (0.2-1.3) mg/dL AST (14-36) IU/L ALT (<35) IU/L Alkaline Phosphatase (38-126) U/L NT-Pro-B Natriuret Pep (<125) pg/mL Total Protein (6.3-8.2) g/dL Albumin (3.5-5.0) g/dL Globulin (1.7-4.1) g/dL Albumin/Globulin Ratio (1.0-2.8) Procalcitonin (<0.5) ng/mL SARS-CoV-2 (PCR) (Negative) Discharge Plan Departure Patient Disposition: Admitted As Inpatient Clinical Impression: Asthma exacerbation, Acute respiratory failure with hypoxemia Admit Date/Time: 05/13/22 01:12 Admit Provider: Kwasi Patel
[2022-05-12 20:01] LABS: Lactate 2HR (Lactic Acid Rflx) 1.2 mmol/L (0.7-2.1)
[2022-05-12 20:05] LABS: D Dimer 288 ng/ml (<500)
[2022-05-12] MEDS: ALBUTEROL/IPRATROPIUM 3 ML AMPUL INH (20:06)
[2022-05-12] MEDS: methylPREDNISolone 125 MG/2 ML VIAL IV (20:06)
[2022-05-12 20:18] LABS: NT-proBNP (BNP-Adult 18+) 61 pg/mL (<125)
[2022-05-12 20:25] LABS: Procalcitonin 0.07 ng/mL (<0.5)
[2022-05-12] MEDS: ALBUTEROL 2.5 MG/3 ML NEB (ADULT) 20 MG INH (21:14)
--- NOTE | 2022-05-12 22:39 | PC.NURSE ---
Bright red blood on toilet paper after pt wiped from using the commode. Pt reports this has never happened before. Reports a history of internal hemorrhoids. Provider aware.
[2022-05-12 23:44] LABS: HCO3 ABG 34 mmol/L (22-26); Oxygen Saturation ABG 98 % (95-100); PO2 ABG 106 mmHg (80-100); TCO2 ABG 35 mmol/L (21-31)
[2022-05-12 23:45] LABS: Fractionated Inspired Oxygen 32
[2022-05-13] VITALS (20 sets, daily range): BP systolic 106–136; BP diastolic 69–81; PULSE 87–99; RESP 16–23; TEMP 36.2–37.8; O2SAT 83–97; BMI 53.1
[2022-05-13] MEDS: MAGNESIUM SULFATE 2 GM/50 ML PIGGYBACK IV (01:22)
[2022-05-13] MEDS: ONDANSETRON 4 MG ODT 8 MG SL (04:00)
[2022-05-13] MEDS: PANTOPRAZOLE DR 40 MG TABLET PO (04:01)
[2022-05-13] MEDS: ACETAMINOPHEN 325 MG TABLET 650 MG PO (04:01)
[2022-05-13] MEDS: MAGNESIUM OXIDE 400 MG TABLET 1000 MG PO (04:11)
[2022-05-13] MEDS: SODIUM CHLORIDE 0.9% 1,000 ML 125 ML IV (04:12)
--- NOTE | 2022-05-13 05:18 | PC.NURSE ---
Left abdominal redness under panus.
--- NOTE | 2022-05-13 05:23 | PC.NURSE ---
Left abdominal and groin redness under panus.
--- NOTE | 2022-05-13 05:24 | PC.NURSE ---
Right lower abdominal red scab wounds.
--- NOTE | 2022-05-13 05:25 | PC.NURSE ---
Erythema and moisture under left breast and upper abdomen.
--- NOTE | 2022-05-13 05:59 | PC.NURSE ---
End of shift report. Care of patient from 129 to 729. Patient arrived from ED via stretcher, AAOX4, on 3L NC, no dyspnea, calm, RR normal, regular, O2 Sats 95%. No SOB with exertion while up to BS. Patient's chief complaint is front to back throbbing head migraine. When asked, patient states she takes Excedrin Migraine pain pills at home to reliefe. Patient has had SI thoughts, denies any plans. Pt states she attempted Suicide on April 26, 2022 because of her migraine headache. She states that taking her Magnesium Oxide 1000mg helps prevent her from having SI thoughts. Patient also complained of nausea and requested Zofran 8mg SL and said she has stomach upset and requested omeprazol. Dr. Patel was called by this RN and informed of patient's recent suicide attempt and SI, with low risk this admission. Discussed patients request for medication, see new orders. Patient has been SR-ST 90-100s.
[2022-05-13] MEDS: methylPREDNISolone 125 MG/2 ML VIAL 80 MG IV ×2 (06:28→13:13)
[2022-05-13] MEDS: diazePAM 5 MG TABLET PO ×2 (08:15→14:32)
--- NOTE | 2022-05-13 09:06 | P.HP_ITS ---
History of Present Illness History of Present Illness Date Patient Seen: 05/13/22 Time Patient Seen: 09:06 Chief complaint: COPD, SOB Narrative: 42-year-old female who normally sees Dr. Rolanda Raymond (last seen February 2021) admitted via emergency department with an asthma exacerbation Patient reports a multi month increase in shortness of breath mostly with exe rtion. She also has an increased cough. She reports some nasal congestion and sneezing as well as the cough. On day of admission her breathing got progressively worse and she was really unable to improve herself with multiple nebulizer treatments. She has a home oximeter and has been noting her oxygen saturations been about 89-92% for the last several weeks but seem to be even lower yesterday (day of admission). Denies any real sputum production no fever chills Patient does have inhalers for her asthma that she is been taking on a regular basis including her rescue inhaler ER evaluation was essentially unremarkable although she was mildly hypoxic and not moving a lot of air. Multiple nebulizer treatments seem to be helpful and she was admitted for ongoing treatment Patient with extensive history of behavioral health issues, followed most recently primarily by behavioral health. She has chronic anxiety disorder, PTSD, panic disorder with agoraphobia and severe, severe panic attacks, major depressive disorder, and chronic fatigue followed by behavioral health here at [facility]. She is a long list of medication she is tried and is intolerant of and or is ineffective. Patient does report a suicide attempt in April of this year secondary to an intractable migraine headache. She denies any active suicidal ideation at this time Patient History Medical History Abnormal Pap smear of cervix Agoraphobia Anal fissure (01/24/12) Anemia Anxiety Aspirin overdose Asthma Asthma with allergic rhinitis BRCA negative Bursitis of left hip Chronic back pain Chronic cough Chronic headaches Chronic interstitial cystitis (01/04/16) Chronic migraine Corneal pigmentation of both eyes Depression Endometriosis Essential (primary) hypertension Fibromyalgia Frequent UTI Gastric ulcer Gastroparesis GERD (gastroesophageal reflux disease) GI bleeding Hayfever Hearing loss Hemorrhoids History of fracture of hip (01/04/16) History of gastrointestinal hemorrhage (01/04/16) History of heavy periods History of partial hysterectomy (01/04/16) History of recurrent ear infection History of tilt table evaluation (05/02/15) IBS (irritable bowel syndrome) Interstitial cystitis Irregular periods/menstrual cycles Irritable bowel syndrome with diarrhea (01/04/16) Kidney infection (2002) [place] use Migraines MRSA infection Nondiabetic gastroparesis (01/04/16) Ovarian cyst Painful menstrual periods Panic attacks Partial blindness PTSD (post-traumatic stress disorder) PUD (peptic ulcer disease) Recurrent sinusitis Rheumatoid arthritis Scoliosis Suicide attempt by acetaminophen overdose Tachycardia Tinnitus Vaginal delivery Vertigo Surgical History Anesthesia complication History of bladder surgery (02/2001) History of bladder suspension procedure (06/14/13) History of colonoscopy (01/10/15) History of endoscopy (05/04/07) History of endoscopy (01/10/15) History of hip surgery (12/13/92) History of rectal surgery (01/24/12) History of third molar tooth extraction (1997) Status post appendectomy (08/1996) Status post dilation and curettage (10/2009) Status post hysterectomy (05/07/10) Status post laparoscopic cholecystectomy (03/11/06) Status post laparoscopy (1999) Status post laparoscopy (05/04/07) Family & Social History Family History Brother Age: 46 Back pain Brother Age: 45 Migraines Child Age: 19 Mental health problem Child Age: 18 Asperger syndrome Father Age: 69 Anger Mother Age: 63 Hypothyroidism Anxiety Stroke Sister Age: 46 Thyroid cancer Brain tumor Grandfather No problems noted. Grandmother Brain tumor Grandfather No problems noted. Grandmother Ovarian cancer Social History: household members children Prior Living Arrangements Apartment/Condo lives independently Yes caregiver/support person Yes Safety & Behavioral: Feels Safe in Current Yes Environment Been Physically Hurt or No Threatened By a Person Tobacco & Substance use: Smoking Status Never smoker alcohol intake never alcohol intake frequency 0-2 drinks per day Substance Use Type does not use Meds Home Medications and Allergies Home Medications Medication Instructions Recorded Confirmed Type magnesium oxide 500 mg tablet See Rx Instructions .Route 12/22/20 05/13/22 Rx .COMPLEX #180 tabs levalbuterol HCl 1.25 mg/3 mL See Rx Instructions .Route 04/09/21 05/13/22 Rx solution for nebulization .COMPLEX #300 mL melatonin 3 mg tablet,extended See Rx Instructions PO .COMPLEX 05/03/21 05/13/22 Rx release #90 tabs nystatin 100,000 unit/gram topical 1 applic topical TID #60 grams 06/04/21 05/13/22 Rx powder nystatin 100,000 unit/gram topical 1 applic topical TID #30 grams 08/27/21 05/13/22 Rx ointment Dupixent Syringe 300 mg/2 mL See Rx Instructions .Route 09/17/21 05/13/22 Rx subcutaneous syringe (dupilumab) .COMPLEX #4 mL montelukast 10 mg tablet See Rx Instructions .Route 10/10/21 05/13/22 Rx .COMPLEX #90 tabs gabapentin 600 mg tablet 600 mg PO BID #120 tabs 11/06/21 05/13/22 Rx epinephrine 0.3 mg/0.3 mL See Rx Instructions .Route 11/20/21 05/13/22 Rx injection, auto-injector .COMPLEX #2 ea cholecalciferol (vitamin D3) 100 2,000 unit PO BID #180 caps 11/26/21 05/13/22 Rx mcg (4,000 unit) capsule gabapentin 300 mg capsule 300 mg PO DAILY #90 caps 11/26/21 05/13/22 Rx lidocaine 5 % topical ointment See Rx Instructions .Route 12/17/21 05/13/22 Rx .COMPLEX #49.222 grams lisinopril 40 mg tablet See Rx Instructions .Route 02/13/22 05/13/22 Rx .COMPLEX #90 tabs umeclidinium 62.5 mcg/actuation See Rx Instructions .Route 02/15/22 05/13/22 Rx blister powder for inhalation .COMPLEX #60 ea (Incruse Ellipta) fluticasone furoate 200 See Rx Instructions .Route 03/18/22 05/13/22 Rx mcg-vilanterol 25 mcg/dose .COMPLEX #60 ea inhalation powder (Breo Ellipta) albuterol sulfate 90 mcg/actuation 2 puff inhalation Q4-6H PRN 03/19/22 05/13/22 Rx aerosol inhaler (ProAir HFA) Shortness Of Breath #8.5 grams baclofen 20 mg tablet See Rx Instructions .Route 04/10/22 05/13/22 Rx .COMPLEX #60 tabs hydroxyzine HCl 50 mg tablet See Rx Instructions .Route 04/12/22 05/13/22 Rx .COMPLEX #180 tabs diazepam 5 mg tablet 5 mg PO TID #90 tabs 05/07/22 05/13/22 Rx lamotrigine 200 mg tablet 200 mg PO DAILY #90 tabs 05/07/22 05/13/22 Rx prazosin 2 mg capsule 4 mg PO BEDTIME #60 caps 05/07/22 05/13/22 Rx vortioxetine 20 mg tablet 20 mg PO DAILY #90 tabs 05/07/22 05/13/22 Rx (Trintellix) omeprazole 40 mg capsule,delayed See Rx Instructions .Route 05/08/22 05/13/22 Rx release .COMPLEX #180 caps ondansetron 8 mg disintegrating 8 mg PO Q8H PRN nausea and 05/08/22 05/13/22 Rx tablet vomiting #90 tabs Allergies Allergy/AdvReac Type Severity Reaction Status Date / Time bupropion [BUPROPION] Allergy Mild facial rash Verified 11/26/21 12:50 hydrocodone [HYDROCODONE] Allergy Mild rash Verified 11/26/21 12:50 iodine [IODINE] Allergy Mild edema Verified 11/26/21 12:50 lithium AdvReac Severe suicidal Verified 11/26/21 13:23 thoughts lorazepam AdvReac Severe worsens Verified 11/26/21 13:25 panic trazodone AdvReac Severe suicidal Verified 05/13/22 08:54 thoughts diphenhydramine AdvReac Intermediate panic Verified 05/13/22 08:54 [From Benadryl] attacks Review of Systems Review of Systems ROS: Yes All systems reviewed with the patient and are negative except as otherwise documented Exam Vital Signs (past 8 hours): - 05/13/22 01:38 05/13/22 01:30 05/13/22 01:37 Temperature Pulse Rate 89 87 87 Respiratory Rate 18 17 18 Blood Pressure 132/70 Pulse Oximetry 96 95 95 Oxygen Delivery Method Nasal Cannula Nasal Cannula Oxygen Flow Rate 3 3 05/13/22 01:37 05/13/22 01:50 05/13/22 04:00 Temperature 97.8 F 98.0 F Pulse Rate 91 H 96 H Respiratory Rate 19 22 Blood Pressure 132/70 136/69 135/69 Pulse Oximetry 97 94 Oxygen Delivery Method Oxygen Flow Rate 2 2 05/13/22 01:19 05/13/22 08:00 05/13/22 08:19 Temperature 97.4 F L Pulse Rate 96 H Respiratory Rate 20 Blood Pressure 106/71 Pulse Oximetry 97 96 Oxygen Delivery Method Nasal Cannula Nasal Cannula Oxygen Flow Rate 2 1 Oxygen Delivery Method Nasal Cannula Oxygen Flow Rate 1 Narrative Exam Narrative: Obese female in no obvious distress breathing comfortably lying in hospital bed. Able to complete full sentences without any difficulty whatsoever HEENT unremarkable Lungs-no wheezes no crackles reasonably good breath sounds Heart-regular rate and rhythm Abdomen-obesity limits exam but positive bowel tones nontender Objective Labs Result Diagrams: 05/12/22 17:20 05/12/22 17:20 Labs: Laboratory Results - last 24 hr 05/12/22 05/12/22 05/12/22 17:11 17:20 17:20 WBC 10.4 RBC 4.31 Hgb 10.9 L Hct 34.5 L MCV 80.1 MCH 25.4 L MCHC 31.7 RDW 17.1 H Plt Count 288 Neut % (Auto) 67.4 Lymph % (Auto) 23.4 L [place] % (Auto) 5.7 Eos % (Auto) 2.8 Baso % (Auto) 0.7 Neut # (Auto) 7000 Lymph # (Auto) 2400 [place] # (Auto) 600 Eos # (Auto) 300 Baso # (Auto) 100 D-Dimer ABG pH ABG pCO2 ABG pO2 ABG HCO3 ABG Total CO2 ABG O2 Saturation ABG Base Excess FiO2 Sodium 138 Potassium 4.4 Chloride 98 Carbon Dioxide 34 H BUN 16 Creatinine 0.69 Estimated GFR > 60 BUN/Creatinine Ratio 23.2 H Glucose 107 H Lactate Calcium 8.6 Total Bilirubin 0.3 AST 22 ALT 21 Alkaline Phosphatase 71 NT-Pro-B Natriuret Pep Total Protein 8.0 Albumin 4.2 Globulin 3.8 Albumin/Globulin Ratio 1.1 Procalcitonin SARS-CoV-2 (PCR) Negative 05/12/22 05/12/22 05/12/22 17:20 17:20 17:20 WBC RBC Hgb Hct MCV MCH MCHC RDW Plt Count Neut % (Auto) Lymph % (Auto) [place] % (Auto) Eos % (Auto) Baso % (Auto) Neut # (Auto) Lymph # (Auto) [place] # (Auto) Eos # (Auto) Baso # (Auto) D-Dimer 288 ABG pH ABG pCO2 ABG pO2 ABG HCO3 ABG Total CO2 ABG O2 Saturation ABG Base Excess FiO2 Sodium Potassium Chloride Carbon Dioxide BUN Creatinine Estimated GFR BUN/Creatinine Ratio Glucose Lactate 2.2 H Calcium Total Bilirubin AST ALT Alkaline Phosphatase NT-Pro-B Natriuret Pep 61 Total Protein Albumin Globulin Albumin/Globulin Ratio Procalcitonin 0.07 SARS-CoV-2 (PCR) 05/12/22 05/12/22 19:44 23:27 WBC RBC Hgb Hct MCV MCH MCHC RDW Plt Count Neut % (Auto) Lymph % (Auto) [place] % (Auto) Eos % (Auto) Baso % (Auto) Neut # (Auto) Lymph # (Auto) [place] # (Auto) Eos # (Auto) Baso # (Auto) D-Dimer ABG pH 7.40 ABG pCO2 54.0 H ABG pO2 106 H ABG HCO3 34 H ABG Total CO2 35 H ABG O2 Saturation 98 ABG Base Excess 9.0 H FiO2 32 Sodium Potassium Chloride Carbon Dioxide BUN Creatinine Estimated GFR BUN/Creatinine Ratio Glucose Lactate 1.2 Calcium Total Bilirubin AST ALT Alkaline Phosphatase NT-Pro-B Natriuret Pep Total Protein Albumin Globulin Albumin/Globulin Ratio Procalcitonin SARS-CoV-2 (PCR) Assessment & Plan Assessment & Plan narrative: 1. Asthma exacerbation with respiratory failure, acute--continue with IV steroids as well as frequent nebulizer treatments. Continue patient's usual inhalers as well. Hopefully she will improve over the next 24-48 hours and be able to be discharged home on an oral steroid regimen. Patient's arterial blood gas did demonstrate mild hypercapnia likely secondary to her significant morbid obesity which results in increased work of breathing etcetera. This appears to be chronic based on her pH which was normal. May well be able to go home later today assuming she remains stable, and given her significant issues with anxiety depression etcetera that may well be the best choice 2. PTSD/anxiety/depression-continue patient's usual medications including her prn medications 3. VTE prophylaxis-Lovenox is entirely appropriate and ordered 4. Code status-patient should be full code COVID-19 COVID-19 status: Negative Result date/Date tested (Pos, Neg/Pending): 05/13/22
[2022-05-13] MEDS: NYSTATIN POWDER 15GM 1 APPLIC TOP ×2 (09:24→14:32)
[2022-05-13] MEDS: lamoTRIgine 100 MG TABLET 200 MG PO (09:25)
[2022-05-13] MEDS: GABAPENTIN 300 MG CAPSULE 900 MG PO (09:25)
[2022-05-13] MEDS: ONDANSETRON 4 MG ODT 8 MG PO (09:25)
[2022-05-13] MEDS: hydrOXYzine pamoate 25 MG CAPSULE 50 MG PO ×2 (09:25→14:32)
[2022-05-13] MEDS: ENOXAPARIN 40 MG/0.4 ML SYRINGE SUBCUT (09:26)
[2022-05-13] MEDS: ALBUTEROL/IPRATROPIUM 3 ML AMPUL INH ×2 (11:53→15:55)
--- NOTE | 2022-05-13 12:51 | CM.DANOTE ---
DCP: Case received, EMR reviewed and met with patient. Introduced self and role. Was able to obtain some information from patient regarding her baseline activity level at home prior to hospitalization. DCP assessment completed with information currently available. Patient is a 42 year old female who admitted early this morning to the care of the hospitalist team. PCP: Dr. Raymond. Payer: confirmed: Medicare/Medicaid. Patient came to the hospital via ambulance secondary to having increased shortness of breath. Patient has history of COPD and asthma, chronic fatigue, PTSD, HTN. Patient holds diagnosis of asthma exacerbation, acute respiratory failure with hypoxemia. Patient was placed on oxygen, which is not her baseline. Met with patient in her room. She is alert and oriented, anxious, wanting to go home. Confirmed that patient resides here in [place], has her teenage children at home, one is 19. She is not on any home oxygen at her baseline, but does have nebulizer treatments at home. Confirmed that Dr. Raymond is her primary care provider. P: Patient does have discharge orders, pending on how she does without oxygen. She claimed, she does not have a ride home. Called [employer], as they work with Medicaid, and it's a holiday, and they have no availabilites. Patient is Medicaid, does not have the finances, most likely will need a taxi voucher. Have not yet been updated by nursing as to when she will be ready for discharge, but will complete taxi voucher and call [employer] when ready. Jana Nash RN/Investigation Division Lieutenant Discharge Planning/Care Management CM Discharge Assessment Start: 05/13/22 12:49 Freq: Status: Active Protocol: Document 05/13/22 12:49 (Rec: 05/13/22 12:51 [id number]) Discharge Planning Assessment Assigned Women'S Studies Professor Jana Nash RN/Investigation Division Lieutenant Advance Directives? No Advance Directives on File No History Provided By Patient,Medical Record Prior Living Arrangements Apartment/Condo Household Members children Type of transporation used prior to Drives own vehicle admit Independent with ADL's Yes Is patient alert and oriented? Yes Caregiver for Another Yes: Has teenage children at home Barriers to Discharge No Discharge Plan Home Transportation Arrangement May need taxi services Referrals Initiated None needed,Other Whiteboard Updated in Patient Room with Yes name and ext. # of Women'S Studies Professor Review Status In Process Next Review Type Continued Stay Review
--- NOTE | 2022-05-13 12:53 | PC.NURSE ---
on room air patient sats drop to 82-85%, gave incentive spirometer, patient put back on 1L NC and pulling 1500 on IS, will do RA trial after next dose of steroids.
--- NOTE | 2022-05-13 14:55 | PC.NURSE ---
Patient continues to fail RA trial, desatting to low to mid 80's. Still working with IS and sitting in chair, continued NC on 1L necessary to keep sats >88%. Temp 100.0 at noon, will recheck at 1600. Can not discharge until maintaining >88% on RA. Patient requests O2 at home if possible.
== END 2022-05-13 18:28 | disposition home or self-care (01) | DRG 202 ==
LOC: ED 05-13 01:06 → AC 05-13 01:13
PROVIDERS: Emergency Medicine; Admitting Provider Internal Medicine; Emergency Provider Emergency Medicine; PCP Family Medicine; Referring Provider Emergency Medicine; Visit Provider Family Medicine
DX: J45.901 Unspecified asthma with (acute) exacerbation (principal); J96.01 Acute respiratory failure with hypoxia; J96.02 Acute respiratory failure with hypercapnia; Z68.43 Body mass index [BMI] 50.0-59.9, adult; E66.01 Morbid (severe) obesity due to excess calories; F43.10 Post-traumatic stress disorder, unspecified; F41.9 Anxiety disorder, unspecified; F32.9 Major depressive disorder, single episode, unspecified; Z20.822 Contact with and (suspected) exposure to COVID-19
CPT/HCPCS: 36415; 36600; 71046; 80053; 82805; 83605; 83880; 84145; 85025; 85379; 87635; 94640; 94760; 96365; 96375; 99235; 99284; 99285; C9803; A9270; J1650; J2930; J3475; J7613

== ENCOUNTER 2022-06-03 07:52 | Inpatient (IN) | payer MEDICARE, MEDICAID, SELFPAY ==
[2022-05-27 08:48] VITALS: BMI 53.1
[2022-06-03] VITALS (27 sets, daily range): BP systolic 83–157; BP diastolic 46–104; PULSE 98–152; RESP 16–41; TEMP 35.6–36.6; O2SAT 85–99; BMI 56.1
--- NOTE | 2022-06-03 08:12 | DI.RAD.S_ITS ---
PROCEDURE: XR CHEST 1V INDICATIONS: chest pain TECHNIQUE: One view of the chest was acquired. COMPARISON: [facility], CR, XR CHEST 2V, 05/12/2022, 17:36. [facility], CR, XR CHEST 1V, 06/23/2019, 19:49. FINDINGS: Surgical changes and devices: None. Lungs and pleura: Lung volumes are low and obscured by overlying soft tissues. Possible effusion, atelectasis, and/or interstitial prominence most confluent in the left upper lobe. Mediastinum: Cardiomegaly Bones and chest wall: No suspicious bony lesions. Overlying soft tissues appear unremarkable. IMPRESSION: Overall similar appearance of the lungs compared to 05/12/2022 on limited one-view radiograph. Chronically decreased aeration and probable edema, atelectasis and airspace disease. Consider imaging surveillance for follow-up. Dictated by: Herrera Back M.D. on 06/03/2022 at 9:06 Approved by: Herrera Back M.D. on 06/03/2022 at 9:10
--- NOTE | 2022-06-03 08:12 | ED.BACK ---
HPI - Back Pain/Injury General Chief Complaint: Extremity Problem,Nontraumatic Stated Complaint: numbness and tingling in lower extremities Time Seen by Provider: 06/03/22 08:04 History of Present Illness HPI Narrative: Patient is a 42 removed female history of morbid obesity, asthma, chronic back pain presenting today with bilateral lower extremities. She actually had an outpatient MRI at [facility] 04/30/2022 which showed multilevel spondylosis, no high-grade central canal stenosis, mild left L3-L4 foraminal stenosis from small lateral disc protrusion no displacement of nerve roots. She was admitted to the hospital on May 12 and discharged on May 13 for asthma exacerbation. She states that she was put on prednisone 20 mg 3 times a day and stopped without a taper, for 10 days. I have no record of this. Patient has had worsening leg pain which brought her to the ER. However she is found to be in SVT with heart rate in the 140s. She says that she feels a little dizzy and lightheaded. She is requiring 1-2 L of oxygen. She was not previously on oxygen although there are reports of her O2 being 89-92% on room air. She says she does have a history of SVT as well. She denies any chest pain. She has no changes in bowel or bladder habits. Complaining of bilateral knee pain. Related Data Previous Rx's Medication Instructions Recorded magnesium oxide 500 mg tablet See Rx Instructions .Route 12/22/20 .COMPLEX #180 tabs levalbuterol HCl 1.25 mg/3 mL See Rx Instructions .Route 04/09/21 solution for nebulization .COMPLEX #300 mL melatonin 3 mg tablet,extended See Rx Instructions PO .COMPLEX 05/03/21 release #90 tabs nystatin 100,000 unit/gram topical 1 applic topical TID #60 grams 06/04/21 powder nystatin 100,000 unit/gram topical 1 applic topical TID #30 grams 08/27/21 ointment Dupixent Syringe 300 mg/2 mL See Rx Instructions .Route 09/17/21 subcutaneous syringe (dupilumab) .COMPLEX #4 mL montelukast 10 mg tablet See Rx Instructions .Route 10/10/21 .COMPLEX #90 tabs gabapentin 600 mg tablet 600 mg PO BID #120 tabs 11/06/21 epinephrine 0.3 mg/0.3 mL See Rx Instructions .Route 11/20/21 injection, auto-injector .COMPLEX #2 ea cholecalciferol (vitamin D3) 100 2,000 unit PO BID #180 caps 11/26/21 mcg (4,000 unit) capsule gabapentin 300 mg capsule 300 mg PO DAILY #90 caps 11/26/21 lidocaine 5 % topical ointment See Rx Instructions .Route 12/17/21 .COMPLEX #49.222 grams lisinopril 40 mg tablet See Rx Instructions .Route 02/13/22 .COMPLEX #90 tabs umeclidinium 62.5 mcg/actuation See Rx Instructions .Route 02/15/22 blister powder for inhalation .COMPLEX #60 ea (Incruse Ellipta) albuterol sulfate 90 mcg/actuation 2 puff inhalation Q4-6H PRN 03/19/22 aerosol inhaler (ProAir HFA) Shortness Of Breath #8.5 grams baclofen 20 mg tablet See Rx Instructions .Route 04/10/22 .COMPLEX #60 tabs diazepam 5 mg tablet 5 mg PO TID #90 tabs 05/07/22 lamotrigine 200 mg tablet 200 mg PO DAILY #90 tabs 05/07/22 prazosin 2 mg capsule 4 mg PO BEDTIME #60 caps 05/07/22 vortioxetine 20 mg tablet 20 mg PO DAILY #90 tabs 05/07/22 (Trintellix) ondansetron 8 mg disintegrating 8 mg PO Q8H PRN nausea and 05/08/22 tablet vomiting #90 tabs omeprazole 40 mg capsule,delayed See Rx Instructions .Route 05/17/22 release .COMPLEX #180 caps hydroxyzine HCl 50 mg tablet See Rx Instructions .Route 05/21/22 .COMPLEX #180 tabs fluticasone furoate 200 See Rx Instructions .Route 05/27/22 mcg-vilanterol 25 mcg/dose .COMPLEX #60 ea inhalation powder (Breo Ellipta) Allergies Allergy/AdvReac Type Severity Reaction Status Date / Time bupropion [BUPROPION] Allergy Mild facial rash Verified 11/26/21 12:50 hydrocodone [HYDROCODONE] Allergy Mild rash Verified 11/26/21 12:50 iodine [IODINE] Allergy Mild edema Verified 11/26/21 12:50 lithium AdvReac Severe suicidal Verified 11/26/21 13:23 thoughts lorazepam AdvReac Severe worsens Verified 11/26/21 13:25 panic trazodone AdvReac Severe suicidal Verified 05/13/22 08:54 thoughts diphenhydramine AdvReac Intermediate panic Verified 05/13/22 08:54 [From Benadryl] attacks Review of Systems Review of Systems Narrative: GENERAL: Denies chills, fatigue, malaise, fever, sweats, travel HEENT: Denies sinus pain, ear pain, sore throat, difficulty swallowing, neck pain RESPIRATORY: Denies dyspnea, cough, wheezing, hemoptysis, sputum. CARDIOVASCULAR: See HPI GASTROINTESTINAL: Denies nausea, vomiting, abdominal pain, diarrhea, constipation, melena. : Denies dysuria, frequency, incontinence, hematuria, urinary retention, flank pain. MUSCULOSKELETAL: See HPI SKIN: No rash, no erythema, no pruritus NEUROLOGIC: Denies weakness, dizziness, headache, numbness, change in speech, confusion PSYCHIATRIC: No concerning psychosocial issues. 12 point review of systems is negative except for those stated above and HPI Patient History Medical History Abnormal Pap smear of cervix Agoraphobia Anal fissure (01/24/12) Anemia Anxiety Aspirin overdose Asthma Asthma with allergic rhinitis BRCA negative Bursitis of left hip Chronic back pain Chronic cough Chronic headaches Chronic interstitial cystitis (01/04/16) Chronic migraine Corneal pigmentation of both eyes Depression Endometriosis Essential (primary) hypertension Fibromyalgia Frequent UTI Gastric ulcer Gastroparesis GERD (gastroesophageal reflux disease) GI bleeding Hayfever Hearing loss Hemorrhoids History of fracture of hip (01/04/16) History of gastrointestinal hemorrhage (01/04/16) History of heavy periods History of partial hysterectomy (01/04/16) History of recurrent ear infection History of tilt table evaluation (05/02/15) IBS (irritable bowel syndrome) Interstitial cystitis Irregular periods/menstrual cycles Irritable bowel syndrome with diarrhea (01/04/16) Kidney infection (2002) [place] use Migraines MRSA infection Nondiabetic gastroparesis (01/04/16) Ovarian cyst Painful menstrual periods Panic attacks Partial blindness PTSD (post-traumatic stress disorder) PUD (peptic ulcer disease) Recurrent sinusitis Rheumatoid arthritis Scoliosis Suicide attempt by acetaminophen overdose Tachycardia Tinnitus Vaginal delivery Vertigo Surgical History Anesthesia complication History of bladder surgery (02/2001) History of bladder suspension procedure (06/14/13) History of colonoscopy (01/10/15) History of endoscopy (05/04/07) History of endoscopy (01/10/15) History of hip surgery (12/13/92) History of rectal surgery (01/24/12) History of third molar tooth extraction (1997) Status post appendectomy (08/1996) Status post dilation and curettage (10/2009) Status post hysterectomy (05/07/10) Status post laparoscopic cholecystectomy (03/11/06) Status post laparoscopy (1999) Status post laparoscopy (05/04/07) Family History Brother Age: 46 Back pain Brother Age: 45 Migraines Child Age: 19 Mental health problem Child Age: 18 Asperger syndrome Father Age: 69 Anger Mother Age: 63 Hypothyroidism Anxiety Stroke Sister Age: 46 Thyroid cancer Brain tumor Grandfather No problems noted. Grandmother Brain tumor Grandfather No problems noted. Grandmother Ovarian cancer Social History marital status: number of children: 2 household members: children lives independently: Yes caregiver/support person: Yes housing: house Smoking Status: Never smoker second hand exposure: No alcohol intake: never substance use type: does not use Smoking Status: Never smoker alcohol intake frequency: 0-2 drinks per day Substance Use Type: does not use Exam Initial Vital Signs Initial Vital Signs: Vital Signs Temperature 97.5 F L 06/03/22 07:55 Pulse Rate 150 H 06/03/22 07:55 Respiratory Rate 28 H 06/03/22 07:55 Pulse Oximetry 91 06/03/22 07:55 Oxygen Delivery Method 06/03/22 07:55 GENERAL: Morbidly obese female 42 HEENT: Head atraumatic,EOMI, pupils reactive, face symmetric, moist mucous membranes CARDIOVASCULAR: Tachycardic regular no murmur RESPIRATORY: Breath sounds equal bilaterally, no wheezes rales or rhonchi. No tachypnea speaks in full sentences ABDOMEN: Soft, nontender. Normoactive bowel sounds all 4 quadrants. No guarding or rebound. EXTREMITIES: Normal range of motion, no clubbing or edema. Neurovascularly intact NEUROLOGICAL: Alert and oriented x4.Normal gait and speech. Able to lift both legs off gurney without reproducing back pain. Sensation in lower extremities intact in the SKIN: Warm, dry, no laceration, no petechiae, no rashes or lesions. Course Orders Ordered: ED Orders 06/03/22 10:41 COVID19 -Nasal RAPID/Pre-Proc Stat Acetaminophen (Acetaminophen 325 Mg Tablet) 650 mg PO Q6HR [facility] Last Admin: 06/03/22 18:15 Dose: 650 mg Documented By: CLL Albuterol (Albuterol 2.5 Mg/3 Ml Neb (Adult)) 2.5 mg INH Q2H PRN PRN Reason: sob Albuterol/Ipratropium (Albuterol/Ipratropium 3 Ml Ampul) 3 ml INH [id number] [facility] Baclofen (Baclofen 10 Mg Tablet) 20 mg PO BEDTIME LAILA Budesonide (Budesonide 0.5 Mg/2 Ml Neb) 0.5 mg INH RTBID [facility] Diazepam (Diazepam 5 Mg Tablet) 5 mg PO TID [facility] Last Admin: 06/03/22 16:54 Dose: Not Given Documented By: CLL Enoxaparin Sodium (Enoxaparin 40 Mg/0.4 Ml Syringe) 40 mg SUBCUT BID [facility] Gabapentin (Gabapentin 300 Mg Capsule) 300 mg PO 1500 [facility] Last Admin: 06/03/22 15:50 Dose: 300 mg Documented By: CLL Gabapentin (Gabapentin 300 Mg Capsule) 300 mg PO 1200 [facility] Gabapentin (Gabapentin 600 Mg Tablet) 600 mg PO BID [facility] Hydroxyzine Pamoate (Hydroxyzine Pamoate 25 Mg Capsule) 25 mg PO TID [facility] Last Admin: 06/03/22 16:55 Dose: Not Given Documented By: CLL Ipratropium [place] (Ipratropium 0.5 Mg/2.5 Ml Neb) 0.5 mg INH Q2H PRN PRN Reason: Shortness Of Breath Lamotrigine (Lamotrigine 100 Mg Tablet) 200 mg PO DAILY [facility] Lidocaine (Lidocaine 5% Oint 35 Gm) 1 applic TOP DAILY PRN PRN Reason: Pain, Mild (1-3) Lisinopril (Lisinopril 20 Mg Tablet) 20 mg PO BEDTIME [facility] Magnesium Oxide (Magnesium Oxide 400 Mg Tablet) 1,000 mg PO BEDTIME [facility] Melatonin (Melatonin 3 Mg Tablet) 3 mg PO BEDTIME LAILA Methylprednisolone (Methylprednisolone 125 Mg/2 Ml Vial) 60 mg IV DAILY [facility] Last Admin: 06/03/22 15:22 Dose: Not Given Documented By: LAURA Montelukast Sodium (Montelukast 10 Mg Tablet) 10 mg PO BEDTIME LAILA Nf - Vortioxetine ( Trintellix) 20 Mg Tablet 20 mg PO DAILY [facility] Nystatin (Nystatin Ointment 15 Applic/Tube Oint...G.) 1 applic TOP TID LAILA Last Admin: 06/03/22 16:24 Dose: Not Given Documented By: LAURA Nystatin (Nystatin Powder 15gm) 1 applic TOP TID [facility]ILA Last Admin: 06/03/22 15:50 Dose: 1 applic Documented By: LAURA Ondansetron HCl (Ondansetron 4 Mg Odt) 8 mg PO Q8H PRN PRN Reason: nausea and vomiting Pantoprazole Sodium (Pantoprazole Dr 40 Mg Tablet) 40 mg PO BID LAIL[facility] Prazosin HCl (Prazosin 1 Mg Capsule) 4 mg PO BEDTIME LAILA Sodium Chloride (Sodium Chloride 0.9% Flush) 10 ml IV PRN PRN PRN Reason: Flush Sodium Chloride (Sodium Chloride 0.9% Flush) 10 ml IV BID LAILA Vitamin D (Cholecalciferol (Vitamin D3) 1,000 Unit Tablet) 2,000 unit PO BID LAILA Discontinued Medications Albuterol/Ipratropium (Albuterol/Ipratropium 3 Ml Ampul) 3 ml INH NOW ONE Stop: 06/03/22 10:23 Last Admin: 06/03/22 10:29 Dose: 3 ml Documented By: GINA Diltiazem HCl (Diltiazem 5 Mg/Ml Sdv) 10 mg IV NOW ONE Stop: 06/03/22 08:13 Last Admin: 06/03/22 08:19 Dose: 10 mg Documented By: IGNACIO Sodium Chloride (Normal Saline 0.9%) 1,000 mls @ 150 mls/hr IV CONT [facility] Last Admin: 06/03/22 08:20 Dose: 150 mls/hr Documented By: IGNACIO Ketorolac Tromethamine (Ketorolac 30 Mg/Ml Vial) 15 mg IV NOW ONE Stop: 06/03/22 10:04 Last Admin: 06/03/22 11:03 Dose: 15 mg Documented By: IGNACIO Methylprednisolone (Methylprednisolone 125 Mg/2 Ml Vial) 125 mg IV NOW ONE Stop: 06/03/22 11:55 Last Admin: 06/03/22 12:30 Dose: 125 mg Documented By: KATERYNA Metoprolol Tartrate (Metoprolol Tartrate 5 Mg/5 Ml Inj) 5 mg IV NOW ONE Stop: 06/03/22 09:26 Last Admin: 06/03/22 09:29 Dose: 5 mg Documented By: IGNACIO Metoprolol Tartrate (Metoprolol Tartrate 5 Mg/5 Ml Inj) 5 mg IV NOW ONE Stop: 06/03/22 09:39 Last Admin: 06/03/22 09:41 Dose: 5 mg Documented By: IGNACIO Promethazine HCl (Promethazine 25 Mg Tablet) 25 mg PO NOW ONE Stop: 06/03/22 10:24 Last Admin: 06/03/22 11:03 Dose: Not Given Documented By: IGNACIO Vital Signs Vital signs: Vital Signs - 8 hr 06/03/22 11:30 06/03/22 11:30 Pulse Rate 99 H Respiratory Rate 22 Blood Pressure 110/51 L Pulse Oximetry 94 Oxygen Delivery Method Nasal Cannula Oxygen Flow Rate 2 MDM - Back Pain/Injury Lab Data Result diagrams: 06/03/22 08:09 06/03/22 08:09 Labs: Lab Results 06/03/22 06/03/22 06/03/22 Range/Units 08:09 08:09 08:09 WBC 9.8 (4.5-11.0) X10^3/uL RBC 4.28 (4.0-5.2) X10^6/uL Hgb 10.9 L (12.0-16.0) g/dL Hct 34.1 L (36-46) % MCV 79.7 L (80-100) fL MCH 25.6 L (26-34) PG MCHC 32.1 (30-36) % RDW 17.5 H (11.6-14.8) % Plt Count 242 (150-400) X10^3/uL Neut % (Auto) 66.4 (50-75) % Lymph % (Auto) 23.9 L (25-40) % [place] % (Auto) 6.0 (3-14) % Eos % (Auto) 3.0 (2-4) % Baso % (Auto) 0.7 (0-2) % Neut # (Auto) 6500 (0421-9665) /uL Lymph # (Auto) 2300 (5644-7631) /uL [place] # (Auto) 600 (0-900) /uL Eos # (Auto) 300 (0-450) /uL Baso # (Auto) 100 (0-100) /uL PT 12.1 (10.1-12.7) SECONDS INR 1.1 (0.9-1.3) APTT 34 (26-36) SECONDS D-Dimer (<500) ng/ml Sodium 137 (137-145) mmol/L Potassium 4.2 (3.4-5.1) mmol/L Chloride 98 (98-107) mmol/L Carbon Dioxide 30 (22-32) mmol/L BUN 17 (7-17) mg/dL Creatinine 0.91 (0.52-1.04) mg/dL Estimated GFR > 60 (>60) mL/min BUN/Creatinine Ratio 18.7 (6-22) Glucose 155 H (70-100) mg/dL Calcium 8.6 (8.4-10.2) mg/dL Magnesium (1.6-2.3) mg/dL Total Bilirubin 0.2 (0.2-1.3) mg/dL AST 28 (14-36) IU/L ALT 31 (<35) IU/L Alkaline Phosphatase 64 (38-126) U/L Total Creatine Kinase 31 (30-135) U/L CK-MB (CK-2) TNP CK-MB (CK-2) Rel Index TNP Troponin I 0.018 (0.01-0.034) ng/mL NT-Pro-B Natriuret Pep 68 (<125) pg/mL Total Protein 6.7 (6.3-8.2) g/dL Albumin 3.6 (3.5-5.0) g/dL Globulin 3.1 (1.7-4.1) g/dL Albumin/Globulin Ratio 1.2 (1.0-2.8) Lipase 63 (23-300) U/L Procalcitonin (<0.5) ng/mL SARS-CoV-2 (PCR) (Negative) 06/03/22 06/03/22 06/03/22 Range/Units 08:09 08:09 08:09 WBC (4.5-11.0) X10^3/uL RBC (4.0-5.2) X10^6/uL Hgb (12.0-16.0) g/dL Hct (36-46) % MCV (80-100) fL MCH (26-34) PG MCHC (30-36) % RDW (11.6-14.8) % Plt Count (150-400) X10^3/uL Neut % (Auto) (50-75) % Lymph % (Auto) (25-40) % [place] % (Auto) (3-14) % Eos % (Auto) (2-4) % Baso % (Auto) (0-2) % Neut # (Auto) (4718-2523) /uL Lymph # (Auto) (1938-0951) /uL [place] # (Auto) (0-900) /uL Eos # (Auto) (0-450) /uL Baso # (Auto) (0-100) /uL PT (10.1-12.7) SECONDS INR (0.9-1.3) APTT (26-36) SECONDS D-Dimer 282 (<500) ng/ml Sodium (137-145) mmol/L Potassium (3.4-5.1) mmol/L Chloride (98-107) mmol/L Carbon Dioxide (22-32) mmol/L BUN (7-17) mg/dL Creatinine (0.52-1.04) mg/dL Estimated GFR (>60) mL/min BUN/Creatinine Ratio (6-22) Glucose (70-100) mg/dL Calcium (8.4-10.2) mg/dL Magnesium 2.0 (1.6-2.3) mg/dL Total Bilirubin (0.2-1.3) mg/dL AST (14-36) IU/L ALT (<35) IU/L Alkaline Phosphatase (38-126) U/L Total Creatine Kinase (30-135) U/L CK-MB (CK-2) CK-MB (CK-2) Rel Index Troponin I (0.01-0.034) ng/mL NT-Pro-B Natriuret Pep (<125) pg/mL Total Protein (6.3-8.2) g/dL Albumin (3.5-5.0) g/dL Globulin (1.7-4.1) g/dL Albumin/Globulin Ratio (1.0-2.8) Lipase (23-300) U/L Procalcitonin 0.09 (<0.5) ng/mL SARS-CoV-2 (PCR) (Negative) 06/03/22 Range/Units 10:41 WBC (4.5-11.0) X10^3/uL RBC (4.0-5.2) X10^6/uL Hgb (12.0-16.0) g/dL Hct (36-46) % MCV (80-100) fL MCH (26-34) PG MCHC (30-36) % RDW (11.6-14.8) % Plt Count (150-400) X10^3/uL Neut % (Auto) (50-75) % Lymph % (Auto) (25-40) % [place] % (Auto) (3-14) % Eos % (Auto) (2-4) % Baso % (Auto) (0-2) % Neut # (Auto) (4359-8492) /uL Lymph # (Auto) (5092-6546) /uL [place] # (Auto) (0-900) /uL Eos # (Auto) (0-450) /uL Baso # (Auto) (0-100) /uL PT (10.1-12.7) SECONDS INR (0.9-1.3) APTT (26-36) SECONDS D-Dimer (<500) ng/ml Sodium (137-145) mmol/L Potassium (3.4-5.1) mmol/L Chloride (98-107) mmol/L Carbon Dioxide (22-32) mmol/L BUN (7-17) mg/dL Creatinine (0.52-1.04) mg/dL Estimated GFR (>60) mL/min BUN/Creatinine Ratio (6-22) Glucose (70-100) mg/dL Calcium (8.4-10.2) mg/dL Magnesium (1.6-2.3) mg/dL Total Bilirubin (0.2-1.3) mg/dL AST (14-36) IU/L ALT (<35) IU/L Alkaline Phosphatase (38-126) U/L Total Creatine Kinase (30-135) U/L CK-MB (CK-2) CK-MB (CK-2) Rel Index Troponin I (0.01-0.034) ng/mL NT-Pro-B Natriuret Pep (<125) pg/mL Total Protein (6.3-8.2) g/dL Albumin (3.5-5.0) g/dL Globulin (1.7-4.1) g/dL Albumin/Globulin Ratio (1.0-2.8) Lipase (23-300) U/L Procalcitonin (<0.5) ng/mL SARS-CoV-2 (PCR) Negative (Negative) Imaging Data Chest x-ray: Radiologist's Impression: XRay Report Signed Patient: Dorinda Harper MR#: [id number] : 1980 Acct:[id number] Age/Sex: 42 / F Date of Service: 06/03/22 Loc: ED Accession Number: [id number] ?? Procedure: XR chest 1V Ordering Provider: Mer Powell D.O. PROCEDURE:? XR CHEST 1V ? INDICATIONS:? chest pain ? TECHNIQUE:? One view of the chest was acquired.? ? COMPARISON:? [facility], CR, XR CHEST 2V, 05/12/2022, 17:36.? [facility], CR, XR CHEST 1V, 06/23/2019, 19:49. ? FINDINGS:? ? Surgical changes and devices:? None.? ? Lungs and pleura:? Lung volumes are low and obscured by overlying soft tissues.? Possible effusion, atelectasis, and/or interstitial prominence most confluent in the left upper lobe. ? Mediastinum:? Cardiomegaly ? Bones and chest wall:? No suspicious bony lesions.? Overlying soft tissues appear unremarkable.? ? IMPRESSION:? Overall similar appearance of the lungs compared to 05/12/2022 on limited one-view radiograph.? Chronically decreased aeration and probable edema, atelectasis and airspace disease.? Consider imaging surveillance for follow-up. ? Dictated by: Herrera Back M.D. on 06/03/2022 at 9:06 ? ? Approved by: Herrera Back M.D. on 06/03/2022 at 9:10 ? ECG Data Interpretation: Sinus tachycardia rate 100 p.r. interval 240 QRS [address] changes MDM Narrative Medical decision making narrative: Patient was in SVT but blood pressure is stable. Given Cardizem which decreased her blood pressure slowly decreased her heart rate but she remained in SVT. Given metoprolol which she responded to and then finally spontaneously converted. MRI is reviewed does not seem to be severe or acute findings. Findings seem to be chronic today nothing new today no need for repeat MRI which would also be difficult patient needs to be sent to a facility for obese open MRIs. However she does not have any signs of cauda equina today. SVT has now resolved blood work is reassuring. She is chronically hypoxic between 88 and 92%. She initially did not have any shortness of breath however she developed some wheezing she was given albuterol which resolved. BNP is negative D-dimer is negative. At this time I do not think PE or congestive heart failure. He actually becomes more hypoxic in the ED on room air down to 85%. She does not have oxygen at home. She did require albuterol treatment here in the ED. Possible recurrent asthma exacerbation she is given a dose of Solu-Medrol. Dr. Oliver's updated on patient's symptoms test results and the patient observation Discharge Plan Departure Patient Disposition: Admitted as Observation Clinical Impression: Asthma exacerbation, Hypoxia Admit Date/Time: 06/03/22 12:49 Admit Provider: Rolanda Raymond
[2022-06-03] MEDS: dilTIAZem 5 MG/ML SDV 10 MG IV (08:19)
[2022-06-03] MEDS: SODIUM CHLORIDE 0.9% 1,000 ML 150 ML IV (08:20)
[2022-06-03 08:29] LABS: Add Manual Diff / Slide Review NO; Basophils Absolute Auto 100 /uL (0-100); Basophils Percent Auto 0.7 % (0-2); Eosinophils Absolute Auto 300 /uL (0-450); Hematocrit 34.1 % (36-46); Hemoglobin 10.9 g/dL (12.0-16.0); Lymphocytes Absolute Auto 2300 /uL (1100-4500); Lymphocytes Percent Auto 23.9 % (25-40); Mean Corpuscular HGB Conc 32.1 % (30-36); Mean Corpuscular Hemoglobin 25.6 PG (26-34); Mean Corpuscular Volume 79.7 fL (80-100); Monocytes Absolute Auto 600 /uL (0-900); Neutrophils Absolute Auto 6500 /uL (1500-7000); Neutrophils Percent Auto 66.4 % (50-75); Platelet Count 242 X10^3/uL (150-400); Red Blood Cell Count 4.28 X10^6/uL (4.0-5.2); Red Cell Distribution Width 17.5 % (11.6-14.8); White Blood Cell Count 9.8 X10^3/uL (4.5-11.0)
[2022-06-03 08:32] LABS: INR 1.1 (0.9-1.3); Prothrombin Time 12.1 SECONDS (10.1-12.7)
[2022-06-03 08:34] LABS: PTT Partial Thromboplastin Tim 34 SECONDS (26-36)
[2022-06-03 08:35] LABS: Alanine Aminotransferase 31 IU/L (<35); Albumin 3.6 g/dL (3.5-5.0); Albumin Globulin Ratio 1.2 (1.0-2.8); Alkaline Phosphatase 64 U/L (38-126); Aspartate Aminotransferase 28 IU/L (14-36); BUN Creatinine Ratio 18.7 (6-22); Bilirubin Total 0.2 mg/dL (0.2-1.3); Blood Urea Nitrogen 17 mg/dL (7-17); Calcium 8.6 mg/dL (8.4-10.2); Carbon Dioxide 30 mmol/L (22-32); Chloride 98 mmol/L (98-107); Creatine Kinase 31 U/L (30-135); Estimated Glomerular Filt Rate > 60 mL/min (>60); Globulin 3.1 g/dL (1.7-4.1); Glucose 155 mg/dL (70-100); HEMOLYSIS < 15 (0-50); Lipase 63 U/L (23-300); Potassium 4.2 mmol/L (3.4-5.1); Sodium 137 mmol/L (137-145); Total Protein 6.7 g/dL (6.3-8.2)
[2022-06-03 08:41] LABS: D Dimer 282 ng/ml (<500)
[2022-06-03 08:46] LABS: NT-proBNP (BNP-Adult 18+) 68 pg/mL (<125); Troponin I 0.018 ng/mL (0.01-0.034)
[2022-06-03 08:51] LABS: Procalcitonin 0.09 ng/mL (<0.5)
[2022-06-03] MEDS: METOPROLOL TARTRATE 5 MG/5 ML INJ IV ×2 (09:29→09:41)
--- NOTE | 2022-06-03 09:38 | PC.NURSE ---
Patient having sharp, stinging chest pain, different from her heartburn pain that she presented with. provider notified.
[2022-06-03] MEDS: ALBUTEROL/IPRATROPIUM 3 ML AMPUL INH ×2 (10:29→19:24)
[2022-06-03] MEDS: KETOROLAC 30 MG/ML VIAL 15 MG IV (11:03)
[2022-06-03 11:10] LABS: COVID19 -Nasal RAPID Negative (Negative)
[2022-06-03] MEDS: methylPREDNISolone 125 MG/2 ML VIAL IV (12:30)
--- NOTE | 2022-06-03 14:12 | PM.HP.1 ---
History of Present Illness History of Present Illness Date Patient Seen: 06/03/22 Time Patient Seen: 16:45 Chief complaint: numbness and tingling in lower extremities Narrative: Pt is a 42yo woman with a history of asthma with most recent exacerbation 05/13/22, lumbar foraminal stenosis and chronic back pain, chronic fatigue, severe anxiety with panic attacks and agoraphobia, depression, PTSD, and HTN who presented to the ED with worsening paresthesias in her lower extremities and acute onset left knee pain. The pt reports that her radiculopathy with paresthesias has been getting progressively worse. This morning she developed severe left knee pain as well, which prompted her to come to the ED for evaluation. The pt reports swelling of the knee, but denies any erythema or warmth. In the ED, the pt was noted to go into SVT with a HR in the 140s. She felt slightly lightheaded and dizzy when this occurred. She was noted to be hypoxic with O2 saturation in the mid 80s. She denies any chest pain. She does state that she has been more SOB than usual when walking to the restroom since her hospitalization for asthma exacerbation on 05/13. She had been discharged on prednisone, which she has now completed. She states she was wheezing slightly this morning, but otherwise denies any significant wheezing. She denies any recent cough or nasal congestion. In the ED, lab work was reassuring including cardiac enzymes and d-dimer. The pt received Cardizem followed by Metoprolol, and then spontaneously converted back into sinus rhythm. The pt was noted to be wheezing and received an albuterol treatment. Her wheezing improved, but she continued to have a 2L oxygen requirement. Patient History Medical History Abnormal Pap smear of cervix Agoraphobia Anal fissure (01/24/12) Anemia Anxiety Aspirin overdose Asthma Asthma with allergic rhinitis BRCA negative Bursitis of left hip Chronic back pain Chronic cough Chronic headaches Chronic interstitial cystitis (01/04/16) Chronic migraine Corneal pigmentation of both eyes Depression Endometriosis Essential (primary) hypertension Fibromyalgia Frequent UTI Gastric ulcer Gastroparesis GERD (gastroesophageal reflux disease) GI bleeding Hayfever Hearing loss Hemorrhoids History of fracture of hip (01/04/16) History of gastrointestinal hemorrhage (01/04/16) History of heavy periods History of partial hysterectomy (01/04/16) History of recurrent ear infection History of tilt table evaluation (05/02/15) IBS (irritable bowel syndrome) Interstitial cystitis Irregular periods/menstrual cycles Irritable bowel syndrome with diarrhea (01/04/16) Kidney infection (2002) [place] use Migraines MRSA infection Nondiabetic gastroparesis (01/04/16) Ovarian cyst Painful menstrual periods Panic attacks Partial blindness PTSD (post-traumatic stress disorder) PUD (peptic ulcer disease) Recurrent sinusitis Rheumatoid arthritis Scoliosis Suicide attempt by acetaminophen overdose Tachycardia Tinnitus Vaginal delivery Vertigo Surgical History Anesthesia complication History of bladder surgery (02/2001) History of bladder suspension procedure (06/14/13) History of colonoscopy (01/10/15) History of endoscopy (05/04/07) History of endoscopy (01/10/15) History of hip surgery (12/13/92) History of rectal surgery (01/24/12) History of third molar tooth extraction (1997) Status post appendectomy (08/1996) Status post dilation and curettage (10/2009) Status post hysterectomy (05/07/10) Status post laparoscopic cholecystectomy (03/11/06) Status post laparoscopy (1999) Status post laparoscopy (05/04/07) Family & Social History Family History Brother Age: 46 Back pain Brother Age: 45 Migraines Child Age: 19 Mental health problem Child Age: 18 Asperger syndrome Father Age: 69 Anger Mother Age: 63 Hypothyroidism Anxiety Stroke Sister Age: 46 Thyroid cancer Brain tumor Grandfather No problems noted. Grandmother Brain tumor Grandfather No problems noted. Grandmother Ovarian cancer Social History: household members children Prior Living Arrangements Apartment/Condo lives independently Yes caregiver/support person Yes Safety & Behavioral: Feels Safe in Current Yes Environment Been Physically Hurt or No Threatened By a Person Tobacco & Substance use: Smoking Status Never smoker alcohol intake never alcohol intake frequency 0-2 drinks per day Substance Use Type does not use Meds Home Medications and Allergies Home Medications Medication Instructions Recorded Confirmed Type magnesium oxide 500 mg tablet See Rx Instructions .Route 12/22/20 06/03/22 Rx .COMPLEX #180 tabs levalbuterol HCl 1.25 mg/3 mL See Rx Instructions .Route 04/09/21 06/03/22 Rx solution for nebulization .COMPLEX #300 mL melatonin 3 mg tablet,extended See Rx Instructions PO .COMPLEX 05/03/21 06/03/22 Rx release #90 tabs nystatin 100,000 unit/gram topical 1 applic topical TID #60 grams 06/04/21 06/03/22 Rx powder nystatin 100,000 unit/gram topical 1 applic topical TID #30 grams 08/27/21 06/03/22 Rx ointment Dupixent Syringe 300 mg/2 mL See Rx Instructions .Route 09/17/21 06/03/22 Rx subcutaneous syringe (dupilumab) .COMPLEX #4 mL montelukast 10 mg tablet See Rx Instructions .Route 10/10/21 06/03/22 Rx .COMPLEX #90 tabs gabapentin 600 mg tablet 600 mg PO BID #120 tabs 11/06/21 06/03/22 Rx epinephrine 0.3 mg/0.3 mL See Rx Instructions .Route 11/20/21 06/03/22 Rx injection, auto-injector .COMPLEX #2 ea cholecalciferol (vitamin D3) 100 2,000 unit PO BID #180 caps 11/26/21 06/03/22 Rx mcg (4,000 unit) capsule gabapentin 300 mg capsule 300 mg PO DAILY #90 caps 11/26/21 06/03/22 Rx lidocaine 5 % topical ointment See Rx Instructions .Route 12/17/21 06/03/22 Rx .COMPLEX #49.222 grams lisinopril 40 mg tablet See Rx Instructions .Route 02/13/22 06/03/22 Rx .COMPLEX #90 tabs umeclidinium 62.5 mcg/actuation See Rx Instructions .Route 02/15/22 06/03/22 Rx blister powder for inhalation .COMPLEX #60 ea (Incruse Ellipta) albuterol sulfate 90 mcg/actuation 2 puff inhalation Q4-6H PRN 03/19/22 06/03/22 Rx aerosol inhaler (ProAir HFA) Shortness Of Breath #8.5 grams baclofen 20 mg tablet See Rx Instructions .Route 04/10/22 06/03/22 Rx .COMPLEX #60 tabs diazepam 5 mg tablet 5 mg PO TID #90 tabs 05/07/22 06/03/22 Rx lamotrigine 200 mg tablet 200 mg PO DAILY #90 tabs 05/07/22 06/03/22 Rx prazosin 2 mg capsule 4 mg PO BEDTIME #60 caps 05/07/22 06/03/22 Rx vortioxetine 20 mg tablet 20 mg PO DAILY #90 tabs 05/07/22 06/03/22 Rx (Trintellix) ondansetron 8 mg disintegrating 8 mg PO Q8H PRN nausea and 05/08/22 06/03/22 Rx tablet vomiting #90 tabs omeprazole 40 mg capsule,delayed See Rx Instructions .Route 05/17/22 06/03/22 Rx release .COMPLEX #180 caps hydroxyzine HCl 50 mg tablet See Rx Instructions .Route 05/21/22 06/03/22 Rx .COMPLEX #180 tabs fluticasone furoate 200 See Rx Instructions .Route 05/27/22 06/03/22 Rx mcg-vilanterol 25 mcg/dose .COMPLEX #60 ea inhalation powder (Breo Ellipta) Allergies Allergy/AdvReac Type Severity Reaction Status Date / Time bupropion [BUPROPION] Allergy Mild facial rash Verified 11/26/21 12:50 hydrocodone [HYDROCODONE] Allergy Mild rash Verified 11/26/21 12:50 iodine [IODINE] Allergy Mild edema Verified 11/26/21 12:50 lithium AdvReac Severe suicidal Verified 11/26/21 13:23 thoughts lorazepam AdvReac Severe worsens Verified 11/26/21 13:25 panic trazodone AdvReac Severe suicidal Verified 05/13/22 08:54 thoughts diphenhydramine AdvReac Intermediate panic Verified 05/13/22 08:54 [From Benadryl] attacks Exam Vital Signs (past 8 hours): - 06/03/22 08:19 06/03/22 07:55 06/03/22 07:55 Temperature 97.5 F L Pulse Rate 145 H 150 H 152 H Respiratory Rate 28 H 30 H Blood Pressure Pulse Oximetry 91 93 Oxygen Delivery Method Room Air Oxygen Flow Rate Fraction of Inspired Oxygen 06/03/22 08:00 06/03/22 08:01 06/03/22 08:01 Temperature Pulse Rate 146 H 147 H Respiratory Rate 24 26 H Blood Pressure 131/104 H Pulse Oximetry 92 92 91 Oxygen Delivery Method Room Air Oxygen Flow Rate Fraction of Inspired Oxygen 06/03/22 08:30 06/03/22 08:30 06/03/22 08:34 Temperature Pulse Rate 125 H Respiratory Rate 18 Blood Pressure 123/51 L 98/48 L Pulse Oximetry 94 Oxygen Delivery Method Nasal Cannula Oxygen Flow Rate 2 Fraction of Inspired Oxygen 06/03/22 08:34 06/03/22 09:00 06/03/22 09:00 Temperature Pulse Rate 127 H 138 H Respiratory Rate 18 19 Blood Pressure 83/61 L Pulse Oximetry 95 97 Oxygen Delivery Method Nasal Cannula Oxygen Flow Rate 2 Fraction of Inspired Oxygen 06/03/22 09:25 06/03/22 09:25 06/03/22 09:27 Temperature Pulse Rate 139 H Respiratory Rate Blood Pressure 123/63 109/56 L Pulse Oximetry 96 Oxygen Delivery Method Nasal Cannula Oxygen Flow Rate 2 Fraction of Inspired Oxygen 06/03/22 09:27 06/03/22 09:30 06/03/22 09:30 Temperature Pulse Rate 139 H 138 H Respiratory Rate 21 Blood Pressure 117/54 L Pulse Oximetry 96 96 Oxygen Delivery Method Oxygen Flow Rate Fraction of Inspired Oxygen 06/03/22 09:33 06/03/22 09:33 06/03/22 09:35 Temperature Pulse Rate 131 H Respiratory Rate 17 Blood Pressure 121/58 L 107/64 Pulse Oximetry 96 Oxygen Delivery Method Oxygen Flow Rate Fraction of Inspired Oxygen 06/03/22 09:35 06/03/22 09:41 06/03/22 09:41 Temperature Pulse Rate 124 H 119 H Respiratory Rate 20 18 Blood Pressure 109/61 Pulse Oximetry 96 97 Oxygen Delivery Method Nasal Cannula Oxygen Flow Rate 2 Fraction of Inspired Oxygen 06/03/22 09:42 06/03/22 09:42 06/03/22 09:44 Temperature Pulse Rate 119 H Respiratory Rate Blood Pressure 109/58 L 112/58 L Pulse Oximetry 97 Oxygen Delivery Method Oxygen Flow Rate Fraction of Inspired Oxygen 06/03/22 09:44 06/03/22 09:45 06/03/22 09:45 Temperature Pulse Rate 119 H 119 H Respiratory Rate 16 17 Blood Pressure 112/56 L Pulse Oximetry 97 97 Oxygen Delivery Method Oxygen Flow Rate Fraction of Inspired Oxygen 06/03/22 09:48 06/03/22 09:48 06/03/22 10:00 Temperature Pulse Rate 118 H Respiratory Rate 25 H Blood Pressure 101/56 L 107/58 L Pulse Oximetry 98 Oxygen Delivery Method Oxygen Flow Rate Fraction of Inspired Oxygen 06/03/22 10:00 06/03/22 10:19 06/03/22 10:19 Temperature Pulse Rate 98 H 100 H Respiratory Rate Blood Pressure 124/66 Pulse Oximetry 97 99 Oxygen Delivery Method Oxygen Flow Rate Fraction of Inspired Oxygen 06/03/22 10:30 06/03/22 10:30 06/03/22 10:30 Temperature Pulse Rate 101 H 100 H Respiratory Rate 26 H 41 H Blood Pressure 111/57 L Pulse Oximetry 99 99 Oxygen Delivery Method Nasal Cannula Oxygen Flow Rate 2 Fraction of Inspired Oxygen 28 06/03/22 11:00 06/03/22 11:00 06/03/22 11:30 Temperature Pulse Rate 101 H Respiratory Rate Blood Pressure 117/56 L 110/51 L Pulse Oximetry 85 L Oxygen Delivery Method Oxygen Flow Rate Fraction of Inspired Oxygen 06/03/22 11:30 Temperature Pulse Rate 99 H Respiratory Rate 22 Blood Pressure Pulse Oximetry 94 Oxygen Delivery Method Nasal Cannula Oxygen Flow Rate 2 Fraction of Inspired Oxygen Fraction of Inspired Oxygen 28 SaO2/FiO2 Ratio 353 Oxygen Delivery Method Nasal Cannula Oxygen Flow Rate 2 Narrative Exam Narrative: Gen: NAD, laying comfortably in bed, morbidly obese HEENT: normocephalic, atraumatic, sclera clear CV: RRR, no murmurs Resp: clear to auscultation bilaterally, no wheezes or crackles Abd: soft, diffuse mild tenderness without rebound/guarding Ext: trace edema bilaterally, left knee tender to palpation throughout without warmth or erythema, minimal swelling compared to right, limited exam otherwise due to tenderness Neuro: No gross deficits Objective Labs Result Diagrams: 06/03/22 08:09 06/03/22 08:09 Labs: Laboratory Results - last 24 hr 06/03/22 06/03/22 06/03/22 08:09 08:09 08:09 WBC 9.8 RBC 4.28 Hgb 10.9 L Hct 34.1 L MCV 79.7 L MCH 25.6 L MCHC 32.1 RDW 17.5 H Plt Count 242 Neut % (Auto) 66.4 Lymph % (Auto) 23.9 L [place] % (Auto) 6.0 Eos % (Auto) 3.0 Baso % (Auto) 0.7 Neut # (Auto) 6500 Lymph # (Auto) 2300 [place] # (Auto) 600 Eos # (Auto) 300 Baso # (Auto) 100 PT 12.1 INR 1.1 APTT 34 D-Dimer Sodium 137 Potassium 4.2 Chloride 98 Carbon Dioxide 30 BUN 17 Creatinine 0.91 Estimated GFR > 60 BUN/Creatinine Ratio 18.7 Glucose 155 H Calcium 8.6 Magnesium Total Bilirubin 0.2 AST 28 ALT 31 Alkaline Phosphatase 64 Total Creatine Kinase 31 CK-MB (CK-2) TNP CK-MB (CK-2) Rel Index TNP Troponin I 0.018 NT-Pro-B Natriuret Pep 68 Total Protein 6.7 Albumin 3.6 Globulin 3.1 Albumin/Globulin Ratio 1.2 Lipase 63 Procalcitonin SARS-CoV-2 (PCR) 06/03/22 06/03/22 06/03/22 08:09 08:09 08:09 WBC RBC Hgb Hct MCV MCH MCHC RDW Plt Count Neut % (Auto) Lymph % (Auto) [place] % (Auto) Eos % (Auto) Baso % (Auto) Neut # (Auto) Lymph # (Auto) [place] # (Auto) Eos # (Auto) Baso # (Auto) PT INR APTT D-Dimer 282 Sodium Potassium Chloride Carbon Dioxide BUN Creatinine Estimated GFR BUN/Creatinine Ratio Glucose Calcium Magnesium 2.0 Total Bilirubin AST ALT Alkaline Phosphatase Total Creatine Kinase CK-MB (CK-2) CK-MB (CK-2) Rel Index Troponin I NT-Pro-B Natriuret Pep Total Protein Albumin Globulin Albumin/Globulin Ratio Lipase Procalcitonin 0.09 SARS-CoV-2 (PCR) 06/03/22 10:41 WBC RBC Hgb Hct MCV MCH MCHC RDW Plt Count Neut % (Auto) Lymph % (Auto) [place] % (Auto) Eos % (Auto) Baso % (Auto) Neut # (Auto) Lymph # (Auto) [place] # (Auto) Eos # (Auto) Baso # (Auto) PT INR APTT D-Dimer Sodium Potassium Chloride Carbon Dioxide BUN Creatinine Estimated GFR BUN/Creatinine Ratio Glucose Calcium Magnesium Total Bilirubin AST ALT Alkaline Phosphatase Total Creatine Kinase CK-MB (CK-2) CK-MB (CK-2) Rel Index Troponin I NT-Pro-B Natriuret Pep Total Protein Albumin Globulin Albumin/Globulin Ratio Lipase Procalcitonin SARS-CoV-2 (PCR) Negative Assessment & Plan Assessment & Plan narrative: Pt is a 42yo woman with a history of asthma with most recent exacerbation 05/13/22, lumbar foraminal stenosis and chronic back pain, chronic fatigue, severe anxiety with panic attacks and agoraphobia, depression, PTSD, and HTN who presented to the ED with worsening paresthesias in her lower extremities and acute onset left knee pain, found to be in SVT in the ED and hypoxic. Spontaneously converted out of SVT, no stable in sinus rhythm. 1) Acute left knee pain: No evidence of septic joint without fevers, erythema, warmth. Similarly, pt without history of gout and symptoms not consistent. No trauma to suggest ligament/tendon damage. Unclear etiology. - Xray ordered to evaluate further 2) Hypoxia: Pt wheezing on admission to the ED. Was recently hospitalized with asthma exacerbation. D-dimer negative, low suspicion for DVT. Due to weight, is high risk for obesity hypoventilation syndrome, although serum CO2 normal. Most likely chronically slightly hypoxic, however with mild asthma exacerbation currently. - Duonebs PRN as per RT - Solumedrol 60mg IV daily - Would benefit from PFTs as an outpatient, possible pulmonology referral - Incentive spirometer 3) Depression/Anxiety: Pt with strong hx of suicidality. Not currently suicidal. - Continue home medications 4) Chronic back pain: With acute exacerbation. Recent MRI without acute findings. Pt has been referred to Dr Inman already. - Continue home Gabapentin 5) HTN: BP good range - Continue home medications 6) Morbid obesity: Likely contributing to hypoxia. DVT ppx: Lovenox Diet: Cardiac Code: Full Dispo: Pending improvement in respiratory status. Pt will likely end up requiring discharge on home oxygen. Time Spent With Patient Critical Care time: I spent a total of [] minutes of critical care time on this patient's care today; this time is exclusive of procedural time. Quality VTE Deep Vein Thrombosis/Pulmonary Embolism Present on Admission: No
--- NOTE | 2022-06-03 14:29 | PC.NURSE ---
Patient is alert and oriented x4, she states that she has been having pain to her left knee. Patient states that she cannot stand and pivot, transfer board used to get her into bed. Patient is obese, and has multiple area's of redness, dry skin, and some bumpy area's to her back. She also states that she has internal hemrroids and does have some slightly bleeding at times. She is comfortable at this time and is resting.
[2022-06-03] MEDS: GABAPENTIN 300 MG CAPSULE PO (15:50)
[2022-06-03] MEDS: NYSTATIN POWDER 15GM 1 APPLIC TOP ×2 (15:50→20:51)
[2022-06-03] MEDS: ACETAMINOPHEN 325 MG TABLET 650 MG PO ×2 (18:15→23:53)
[2022-06-03] MEDS: BUDESONIDE 0.5 MG/2 ML NEB INH (19:24)
--- NOTE | 2022-06-03 20:33 | DI.RAD.S_ITS ---
PROCEDURE: XR KNEE LT 3V INDICATIONS: left knee pain, acute onset TECHNIQUE: 3 views of the knee were acquired. COMPARISON: [facility], , KNEE 3V RIGHT, 06/20/2014, 21:44. FINDINGS: Bones: No fractures or dislocations. No suspicious bony lesions. Soft tissues: There is a small joint effusion. No suspicious soft tissue calcifications. IMPRESSION: 1. No fracture or dislocation. 2. Small joint effusion. Dictated by: Jose Luis Pride M.D. on 06/03/2022 at 22:00 Approved by: Jose Luis Pride M.D. on 06/03/2022 at 22:02
[2022-06-03] MEDS: CHOLECALCIFEROL (VITAMIN D3) 1,000 UNIT TABLET 2000 UNIT PO (20:49)
[2022-06-03] MEDS: hydrOXYzine pamoate 25 MG CAPSULE PO (20:49)
[2022-06-03] MEDS: BACLOFEN 10 MG TABLET 20 MG PO (20:49)
[2022-06-03] MEDS: diazePAM 5 MG TABLET PO (20:49)
[2022-06-03] MEDS: GABAPENTIN 600 MG TABLET PO (20:49)
[2022-06-03] MEDS: MAGNESIUM OXIDE 400 MG TABLET 1000 MG PO (20:50)
[2022-06-03] MEDS: lisinopriL 20 MG TABLET PO (20:50)
[2022-06-03] MEDS: MELATONIN 3 MG TABLET PO (20:51)
[2022-06-03] MEDS: MONTELUKAST 10 MG TABLET PO (20:51)
[2022-06-03] MEDS: SODIUM CHLORIDE 0.9% FLUSH 10 ML IV (20:52)
[2022-06-03] MEDS: PRAZOSIN 1 MG CAPSULE 4 MG PO (20:52)
[2022-06-03] MEDS: PANTOPRAZOLE DR 40 MG TABLET PO (20:52)
[2022-06-03] MEDS: ONDANSETRON 4 MG ODT 8 MG PO (21:02)
--- NOTE | 2022-06-03 22:19 | PC.NURSE ---
Addendum entered by Mary Mejias R.N. 06/04/22 00:02: Purewick not functioning adequately and patient is becoming wet from urine so purewick discontinued. Patient is aware of when she needs to urinate and was able to get up to BSC with walker and SBA. Original Note: Patient is alert and oriented. Breath sounds CTA but remains on oxygen at 2L/min per NC with sat of 97%; on continuous oximetry. Denies feeling SOB or having cough. HRR but tachy in low 100's; telemetry reading was ST w/1st degree AVB. Denies nausea. BT hypoactive and is passing flatus. Using purewick for urinary output as patient has been unable to get up due to pain in left knee. Did have x-ray done this evening which was negative for fx but did show a small effusion. Is able to move limitedly in bed so staff assist in repositioning as patient requests. Gait not assessed as yet since patient has not been out of bed. Chronic numbness in bilateral feet and paresthesias in bilateral LE. Wearing bilateral calf SCD's. States pain in knee is 6/10 but tolerable at time of assessment so declined pain medication. Fall risk score is moderate.
[2022-06-04] VITALS (12 sets, daily range): BP systolic 110–126; BP diastolic 53–68; PULSE 86–109; RESP 17–19; TEMP 35.6–36.3; O2SAT 92–97
[2022-06-04] MEDS: ACETAMINOPHEN 325 MG TABLET 650 MG PO ×3 (05:44→18:52)
[2022-06-04] MEDS: ONDANSETRON 4 MG ODT 8 MG PO ×2 (05:44→22:38)
[2022-06-04] MEDS: BUDESONIDE 0.5 MG/2 ML NEB INH ×2 (07:42→19:18)
[2022-06-04] MEDS: ALBUTEROL/IPRATROPIUM 3 ML AMPUL INH ×3 (07:42→19:18)
--- NOTE | 2022-06-04 08:30 | DI.CT.S_ITS ---
PROCEDURE: CT ANGIO CHEST PE PROTOCOL INDICATIONS: hypoxia, tachycardia TECHNIQUE: After the administration of intravenous contrast, 2 mm thick sections acquired from the pulmonary apices to the posterior costophrenic angles. 3-dimensional maximum intensity projection (MIP) coronal and sagittal reformats were then acquired through the thorax. For radiation dose reduction, the following was used: automated exposure control, adjustment of mA and/or kV according to patient size. COMPARISON: [facility], CT, CT ANGIO CHEST PE PROTOCOL, 04/06/2018, 18:44. FINDINGS: Image quality: Excellent. Pulmonary arteries: Pulmonary arteries are prominent in size and measures up to 4.2 cm in diameter series 4, image 55 which can be seen associated with pulmonary vascular hypertension. There is no central intraluminal filling defects to suggest central pulmonary embolism. Bilateral secondary and tertiary branches of pulmonary arteries are suboptimally opacified, small distal pulmonary emboli cannot be entirely excluded. Lungs and pleura: Patchy hazy ground-glass opacities are seen scattered in bilateral lung small concerning for mild pulmonary edema. No pleural effusions or pneumothorax. Central and peripheral airways are patent. Mediastinum: Heart size is enlarged, without pericardial effusion. No mediastinal or hilar adenopathy. Borderline prominence of ascending thoracic aorta measures up to 4 cm in largest AP diameter series 4, image 55. No gross aortic dissection. Esophagus is normal in caliber, without hiatal hernia. Bones and chest wall: No suspicious bony lesions. No acute vertebral body compression fracture. Thyroid gland is within normal limits. No axillary or supraclavicular adenopathy. Abdomen: Visualized upper abdominal solid organs appear normal in the early arterial phase of enhancement. IMPRESSION: 1. No evidence of central pulmonary embolism. Distal segmental and subsegmental branches of bilateral pulmonary arteries are suboptimally opacified, small distal pulmonary emboli cannot be excluded. 2. Borderline ascending thoracic aortic aneurysm measures up to 4 cm in largest AP diameter. No aortic dissection. 3. Prominent size of main pulmonary artery as above which can be seen associated with pulmonary vascular hypertension. 4. Suggestion of mild pulmonary edema. No focal infiltrate, pleural effusion or pneumothorax. 5. Cardiomegaly, no pericardial effusion. No mediastinal or hilar lymphadenopathy. Dictated by: Grabiel Ibarra M.D. on 06/04/2022 at 8:51 Approved by: Grabiel Ibarra M.D. on 06/04/2022 at 8:56
--- NOTE | 2022-06-04 09:10 | DI.ECHO.S_ITS ---
[facility]---------+ [facility] +---------+ : : [address] : : : : [id number] : : : : Phone: [phone] Echocardiogram Report + + :Name: WILVER CALDERÓN Study Date: 06/04/2022 Height: 70 in : :[facility] ReadingLocation: Weight: 391 lb : : Gender: Female BSA: 2.8 m2 : :: 1980 Age: 42 yrs BP: 131/68 mmHg: :Reason For Study: HYPOXIA : :Ordering Physician: PAULETTE, : :RACHEL Performed By: Rosa Isela Lucas : :Referring: RACHEL CALDWELL : + + Interpretation Summary There is mild concentric left ventricular hypertrophy. The ejection fraction is estimated to be 60-65%. Diastolic function could not be accurately assessed due to unobtainable data. The right ventricle is normal in size and function. The mitral valve leaflets appear mildly thickened, but open well. Unable to estimate PASP. There is a trace pericardial effusion without evidence of tamponade. Compared to the prior study dated 05/23/2020, no significant change other than the trace pericardial effusion. Procedure: A two-dimensional transthoracic echocardiogram with color flow and Doppler was performed. The study quality was technically difficult. A contrast injection of Definity was performed to improve assessment of LV function. Comparison is made with the echocardiogram of 05/23/2020. The patient was in sinus tachycardia with heart rates between 96-103 bpm during the exam. Left Ventricle: The left ventricle is normal in size. There is mild concentric left ventricular hypertrophy. The ejection fraction is estimated to be 60-65%. Diastolic function could not be accurately assessed due to unobtainable data. Right Ventricle: The right ventricle is normal in size and function. Atria: The left atrial size is normal. Right atrial size is normal. There is no Doppler evidence for an interatrial shunt. Mitral Valve: The mitral valve leaflets appear mildly thickened, but open well. There is no mitral regurgitation noted. Aortic Valve: The aortic valve is not well visualized. There is no aortic valve stenosis. No aortic regurgitation is present. Tricuspid Valve: The tricuspid valve is not well visualized, but is grossly normal. No tricuspid regurgitation. Pulmonic Valve: The pulmonic valve is not well visualized. There is no pulmonic valvular regurgitation. Great Vessels: The aortic root is normal size. The dimensions of the ascending aorta are normal. The inferior vena cava was not visualized. Pericardium/ Pleura There is an anterior echo-free space consistent with a fat pad. There is a trivial pericardial effusion noted. There is no pleural effusion. MMode/2D Measurements & Calculations LVIDd: 4.7 cm LVOT diam: 2.3 cm LVIDs: 3.1 cm Ao root diam: 3.0 cm FS: 35.3 % asc Aorta Diam: 3.5 cm EPSS: 1.1 cm Ao Arch Diam (Prox Trans): 2.9 cm IVSd: 1.1 cm LVPWd: 1.2 cm LV cho. diameter/BSA (cm/m^2): 1.7 LV sys. diameter/BSA (cm/m^2): 1.1 LA A2 area: 19.4 cm2 RA long axis: 4.5 cm LA A4 area: 20.8 cm2 RA area: 11.7 cm2 LA length (vol): 5.7 cm RA vol: 25.7 ml LA vol: 60.1 ml RA : 9.3 ml/m2 LA vol index: 21.6 ml/m2 RVD1 (basal): 3.9 cm RVD2 (mid): 3.2 cm TAPSE: 2.4 cm Doppler Measurements & Calculations Ao V2 max: 161.6 cm/sec LVOT Max El: 114.5 cm/sec Ao V2 mean: 111.1 cm/sec LV V1 max P.2 mmHg Ao max P.4 mmHg LV V1 VTI: 21.6 cm Ao mean P.6 mmHg SUAD(I,D): 3.4 cm2 Ao V2 VTI: 27.3 cm SUAD(V,D): 3.1 cm2 sev ratio: 0.79 SUAD indexed to BSA (cm^2/m^2): 1.2 Med Peak E' El: 12.5 cm/sec PA V2 max: 104.1 cm/sec Lat Peak E' El: 8.1 cm/sec PA V2 mean: 72.8 cm/sec MVA(VTI): 2.3 cm2 PA mean P.4 mmHg PA pr(Accel): 37.9 mmHg MV V2 mean: 115.0 cm/sec SV(LVOT): 93.3 ml MV mean P.0 mmHg MV V2 VTI: 40.5 cm Reading Physician:10:06 AM
[2022-06-04] MEDS: diazePAM 5 MG TABLET PO ×3 (09:14→22:39)
[2022-06-04] MEDS: lamoTRIgine 100 MG TABLET 200 MG PO (09:14)
[2022-06-04] MEDS: ENOXAPARIN 40 MG/0.4 ML SYRINGE SUBCUT ×2 (09:14→22:33)
[2022-06-04] MEDS: CHOLECALCIFEROL (VITAMIN D3) 1,000 UNIT TABLET 2000 UNIT PO ×2 (09:14→22:35)
[2022-06-04] MEDS: GABAPENTIN 600 MG TABLET PO ×2 (09:14→22:38)
[2022-06-04] MEDS: hydrOXYzine pamoate 25 MG CAPSULE PO ×3 (09:14→22:35)
[2022-06-04] MEDS: PANTOPRAZOLE DR 40 MG TABLET PO ×2 (09:14→22:34)
[2022-06-04] MEDS: SODIUM CHLORIDE 0.9% FLUSH 10 ML IV ×2 (09:15→22:41)
[2022-06-04] MEDS: methylPREDNISolone 125 MG/2 ML VIAL 60 MG IV (09:15)
[2022-06-04] MEDS: NYSTATIN POWDER 15GM 1 APPLIC TOP ×3 (09:15→22:39)
--- NOTE | 2022-06-04 13:47 | P.PN_ITS ---
Subjective Subjective Date Patient Seen: 06/04/22 Time Patient Seen: 08:10 Interval history: The pt reports that she feels minimally improved. She continues to have left knee pain, but is able to more easily bend it today. She has not really been out of bed to test her SOB. Exam Vital Signs (past 8 hours): - 06/04/22 08:00 06/04/22 11:59 Temperature 96.1 F L 96.8 F L Pulse Rate 101 H 109 H Respiratory Rate 18 18 Blood Pressure 116/60 126/68 Pulse Oximetry 94 94 Oxygen Flow Rate 2 2 Fraction of Inspired Oxygen 28 SaO2/FiO2 Ratio 342 Oxygen Delivery Method Nasal Cannula Oxygen Flow Rate 2 Narrative Exam Narrative: Gen:? NAD, laying comfortably in bed, morbidly obese CV:? RRR, no murmurs Resp:? clear to auscultation bilaterally, no wheezes or crackles Ext:? trace edema bilaterally Objective Labs Result Diagrams: 06/03/22 08:09 06/03/22 08:09 [facility] Medical History Abnormal Pap smear of cervix Agoraphobia Anal fissure (01/24/12) Anemia Anxiety Aspirin overdose Asthma Asthma with allergic rhinitis BRCA negative Bursitis of left hip Chronic back pain Chronic cough Chronic headaches Chronic interstitial cystitis (01/04/16) Chronic migraine Corneal pigmentation of both eyes Depression Endometriosis Essential (primary) hypertension Fibromyalgia Frequent UTI Gastric ulcer Gastroparesis GERD (gastroesophageal reflux disease) GI bleeding Hayfever Hearing loss Hemorrhoids History of fracture of hip (01/04/16) History of gastrointestinal hemorrhage (01/04/16) History of heavy periods History of partial hysterectomy (01/04/16) History of recurrent ear infection History of tilt table evaluation (05/02/15) IBS (irritable bowel syndrome) Interstitial cystitis Irregular periods/menstrual cycles Irritable bowel syndrome with diarrhea (01/04/16) Kidney infection (2002) [place] use Migraines MRSA infection Nondiabetic gastroparesis (01/04/16) Ovarian cyst Painful menstrual periods Panic attacks Partial blindness PTSD (post-traumatic stress disorder) PUD (peptic ulcer disease) Recurrent sinusitis Rheumatoid arthritis Scoliosis Suicide attempt by acetaminophen overdose Tachycardia Tinnitus Vaginal delivery Vertigo Surgical History Anesthesia complication History of bladder surgery (02/2001) History of bladder suspension procedure (06/14/13) History of colonoscopy (01/10/15) History of endoscopy (05/04/07) History of endoscopy (01/10/15) History of hip surgery (12/13/92) History of rectal surgery (01/24/12) History of third molar tooth extraction (1997) Status post appendectomy (08/1996) Status post dilation and curettage (10/2009) Status post hysterectomy (05/07/10) Status post laparoscopic cholecystectomy (03/11/06) Status post laparoscopy (1999) Status post laparoscopy (05/04/07) Family History Brother Age: 46 Back pain Brother Age: 45 Migraines Child Age: 19 Mental health problem Child Age: 18 Asperger syndrome Father Age: 69 Anger Mother Age: 63 Hypothyroidism Anxiety Stroke Sister Age: 46 Thyroid cancer Brain tumor Grandfather No problems noted. Grandmother Brain tumor Grandfather No problems noted. Grandmother Ovarian cancer Social History marital status: number of children: 2 household members: children lives independently: Yes caregiver/support person: Yes housing: house Smoking Status: Never smoker second hand exposure: No alcohol intake: never substance use type: does not use Assessment & Plan Assessment & Plan narrative: Pt is a 42yo woman with a history of asthma with most recent exacerbation 05/13/22, lumbar foraminal stenosis and chronic back pain, chronic fatigue, severe anxiety with panic attacks and agoraphobia, depression, PTSD, and HTN who presented to the ED with worsening paresthesias in her lower extremities and acute onset left knee pain, found to be in SVT in the ED and hypoxic.? Spontaneously converted out of SVT, no stable in sinus rhythm. 1)? Acute left knee pain:? No evidence of septic joint without fevers, erythema, warmth.? Similarly, pt without history of gout and symptoms not consistent.? No trauma to suggest ligament/tendon damage.? Xray showing only degenerative changes. Unclear etiology, but is gradually improving. - Continue to monitor 2)? Hypoxia:? Pt wheezing on admission to the ED.? Was recently hospitalized with asthma exacerbation.? D-dimer negative, however pts HR is persistently in the low 100s.? Due to weight, is high risk for obesity hypoventilation syndrome, although serum CO2 normal.? Most likely chronically slightly hypoxic, however with mild asthma exacerbation currently. - Duonebs PRN as per RT - Solumedrol 60mg IV daily - Would benefit from PFTs as an outpatient, possible pulmonology referral - Incentive spirometer - Chest CT PE today to r/o PE and also evaluate lung parenchyma 3)? Depression/Anxiety:? Pt with strong hx of suicidality.? Not currently suicidal. - Continue home medications 4)? Chronic back pain:? With acute exacerbation.? Recent MRI without acute findings.? Pt has been referred to Dr Inman already. - Continue home Gabapentin 5)? HTN:? BP good range - Continue home medications 6)? Morbid obesity:? Likely contributing to hypoxia.? DVT ppx:? Lovenox Diet:? Cardiac Code:? Full Dispo:? Pending improvement in respiratory status.? Pt will likely end up requiring discharge on home oxygen. Time Spent With Patient Critical Care time: I spent a total of [] minutes of critical care time on this patient's care today; this time is exclusive of procedural time. Quality VTE Deep Vein Thrombosis/Pulmonary Embolism Present on Admission: No
--- NOTE | 2022-06-04 14:55 | CM.DANOTE ---
Initial DCP Assessment Note Pt is a 42 yo female, resident of [place], arrives w/persistent and severe SOB/hypoxia PMH includes: asthma with most recent exacerbation 05/13/22, lumbar foraminal stenosis and chronic back pain, chronic fatigue, severe anxiety with panic attacks and agoraphobia, depression, PTSD, and HTN who presented PCP: Rolanda Raymond Payer: [employer] Reviewed chart, met w/patient to introduce self and role. Patient lives in subsidized apartments in [place] with her 18 and 19 yo; all three household members are on disability benefits and struggle with medical and mental health dx Patient has RICKY GARCÍA CM ( bhavya/Yadira) and has a total of 117 hours monthly. Patient has her [facility] caregiver scheduled approx 5 hrs daily M,T,W,F and Sat Patient struggles with agoraphobia, as does her children, so household members rarely go out Patient wall surfs in her home and uses a walker as needed. Patient wonders if [facility] would pay for a hospital bed? w/ RICKY May to inquire on patient's behalf Patient expects to return home upon discharge, likely via [employer] transport, with resumption of RICKY caregiving. Patient is established w/ [facility], sees Dr Colunga and counselor Yin weekly to assist with long standing hx of mental health and suicidal ideation CM team will plan to follow closely in case we can assist in coordination of this discharge plan AZAR Son Discharge Planning/Care Management CM Discharge Assessment Start: 06/04/22 14:45 Freq: Status: Active Protocol: Document 06/04/22 14:45 CASSIUS (Rec: 06/04/22 14:55 CASSIUS [id number]) Discharge Planning Assessment Assigned Solar Panel Technician AZAR Ramos DPOA/Assigned Designee Name tina Harrison (Joey) Contact Information [phone] Advance Directives? No Advance Directives on File No History Provided By Patient,Medical Record Prior Living Arrangements Apartment/Condo Household Members children Type of transporation used prior to Relies on Others admit Independent with ADL's No Is patient alert and oriented? Yes Name of Agency [facility] Barriers to Discharge No Comment Expect DC back home w/ teenagers and RICKY caregiver Discharge Plan Home Transportation Arrangement May need taxi services, [employer] transport ? Referrals Initiated None needed,Other
[2022-06-04] MEDS: GABAPENTIN 300 MG CAPSULE PO (15:41)
[2022-06-04] MEDS: BACLOFEN 10 MG TABLET 20 MG PO (22:34)
[2022-06-04] MEDS: MELATONIN 3 MG TABLET PO (22:34)
[2022-06-04] MEDS: lisinopriL 20 MG TABLET PO (22:34)
[2022-06-04] MEDS: PRAZOSIN 1 MG CAPSULE 4 MG PO (22:36)
[2022-06-04] MEDS: MAGNESIUM OXIDE 400 MG TABLET 1000 MG PO (22:36)
[2022-06-04] MEDS: MONTELUKAST 10 MG TABLET PO (22:38)
[2022-06-04] MEDS: ALBUTEROL 2.5 MG/3 ML NEB (ADULT) INH (23:07)
[2022-06-05] VITALS: BP 108/60; PULSE 88; RESP 19; TEMP 36.3; O2SAT 97
[2022-06-05] MEDS: ACETAMINOPHEN 325 MG TABLET 650 MG PO ×2 (01:30→06:26)
[2022-06-05 04:00] VITALS: BP 136/78; PULSE 94; RESP 22; TEMP 36.1; O2SAT 93
[2022-06-05] MEDS: ONDANSETRON 4 MG ODT 8 MG PO (06:26)
[2022-06-05 07:25] LABS: Blood Urea Nitrogen 17 mg/dL (7-17); Carbon Dioxide 35 mmol/L (22-32); Chloride 95 mmol/L (98-107); Estimated Glomerular Filt Rate > 60 mL/min (>60); Glucose 125 mg/dL (70-100); HEMOLYSIS < 15 (0-50); Potassium 4.1 mmol/L (3.4-5.1); Sodium 137 mmol/L (137-145)
[2022-06-05 08:00] VITALS: BP 120/70; PULSE 94; RESP 18; TEMP 36.4; O2SAT 98
[2022-06-05] MEDS: FUROSEMIDE 20 MG TABLET PO (08:22)
[2022-06-05] MEDS: CHOLECALCIFEROL (VITAMIN D3) 1,000 UNIT TABLET 2000 UNIT PO (08:22)
[2022-06-05] MEDS: diazePAM 5 MG TABLET PO (08:22)
[2022-06-05] MEDS: hydrOXYzine pamoate 25 MG CAPSULE PO (08:22)
[2022-06-05] MEDS: PANTOPRAZOLE DR 40 MG TABLET PO (08:22)
[2022-06-05] MEDS: ENOXAPARIN 40 MG/0.4 ML SYRINGE SUBCUT (08:22)
[2022-06-05] MEDS: GABAPENTIN 600 MG TABLET PO (08:22)
[2022-06-05] MEDS: methylPREDNISolone 125 MG/2 ML VIAL 60 MG IV (08:22)
[2022-06-05] MEDS: NYSTATIN OINTMENT 15 APPLIC/TUBE OINT...G. TOP (08:25)
[2022-06-05] MEDS: SODIUM CHLORIDE 0.9% FLUSH 10 ML IV (08:30)
[2022-06-05] MEDS: lamoTRIgine 100 MG TABLET 200 MG PO (08:30)
[2022-06-05] MEDS: ALBUTEROL 2.5 MG/3 ML NEB (ADULT) INH (09:28)
[2022-06-05] MEDS: BUDESONIDE 0.5 MG/2 ML NEB INH (09:28)
--- NOTE | 2022-06-05 10:36 | P.DS_ITS ---
History of Present Illness History of Present Illness Chief complaint: numbness and tingling in lower extremities Narrative: Pt is a 42yo woman with a history of asthma with most recent exacerbation 05/13/22, lumbar foraminal stenosis and chronic back pain, chronic fatigue, severe anxiety with panic attacks and agoraphobia, depression, PTSD, and HTN who presented to the ED with worsening paresthesias in her lower extremities and acute onset left knee pain. The pt reports that her radiculopathy with paresthesias has been getting progressively worse. This morning she developed severe left knee pain as well, which prompted her to come to the ED for evaluation. The pt reports swelling of the knee, but denies any erythema or warmth. In the ED, the pt was noted to go into SVT with a HR in the 140s. She felt slightly lightheaded and dizzy when this occurred. She was noted to be hypoxic with O2 saturation in the mid 80s. She denies any chest pain. She does state that she has been more SOB than usual when walking to the restroom since her hospitalization for asthma exacerbation on 05/13. She had been discharged on prednisone, which she has now completed. She states she was wheezing slightly this morning, but otherwise denies any significant wheezing. She denies any recent cough or nasal congestion. In the ED, lab work was reassuring including cardiac enzymes and d-dimer. The pt received Cardizem followed by Metoprolol, and then spontaneously converted back into sinus rhythm. The pt was noted to be wheezing and received an albuterol treatment. Her wheezing improved, but she continued to have a 2L oxygen requirement. Discharge Providers Provider Date of admission: 06/03/22 12:49 Discharge Date: 06/05/22 Primary care physician: Rolanda Raymond MD Discharge provider: Rolanda Raymond MD Summary Hospital Course Discharge Diagnosis: Acute left knee pain Hypoxia Acute asthma exacerbation Depression/Anxiety Chronic back pain HTN Morbid obesity Hospital Course: The pt presented with hypoxia, left knee pain, and brief episode of SVT in the ED. Work-up for her hypoxia included CXR in the ED, chest CT PE that was negative with mild pulmonary edema, and echocardiogram that was normal. The pt was started on IV steroids for presumed asthma exacerbation. Her breathing improved throughout her stay, and at the time of discharge she was on room air. For her left knee pain, xray was completed that showed only degenerative changes. Her knee pain improved throughout her hospitalization as well. This will be followed-up as an outpatient. The pt was stable for discharge home, and will complete a 5 day course of prednisone. Status at Discharge Cognitive/behavioral status at discharge: oriented Functional status at discharge: uses cane/walker Overall status at discharge: patient is back to baseline Exam Vital Signs (past 8 hours): - 06/05/22 04:00 06/05/22 08:00 06/05/22 07:00 Temperature 96.9 F L 97.6 F Pulse Rate 94 H 94 H Respiratory Rate 22 18 Blood Pressure 136/78 120/70 Pulse Oximetry 93 98 Oxygen Delivery Method Nasal Cannula Oxygen Flow Rate 2 Fraction of Inspired Oxygen 28 SaO2/FiO2 Ratio 346 Oxygen Delivery Method Nasal Cannula Oxygen Flow Rate 2 Narrative Exam Narrative: Gen:? NAD, laying comfortably in bed, morbidly obese CV:? RRR, no murmurs Resp:? clear to auscultation bilaterally, no wheezes or crackles Ext:? trace edema bilaterally Objective Labs Result Diagrams: 06/03/22 08:09 06/05/22 06:58 Labs: Laboratory Results - last 24 hr 06/05/22 06:58 Sodium 137 Potassium 4.1 Chloride 95 L Carbon Dioxide 35 H BUN 17 Creatinine 0.63 Estimated GFR > 60 BUN/Creatinine Ratio 27.0 H Glucose 125 H Calcium 9.0 PFSH Medical History Abnormal Pap smear of cervix Agoraphobia Anal fissure (01/24/12) Anemia Anxiety Aspirin overdose Asthma Asthma with allergic rhinitis BRCA negative Bursitis of left hip Chronic back pain Chronic cough Chronic headaches Chronic interstitial cystitis (01/04/16) Chronic migraine Corneal pigmentation of both eyes Depression Endometriosis Essential (primary) hypertension Fibromyalgia Frequent UTI Gastric ulcer Gastroparesis GERD (gastroesophageal reflux disease) GI bleeding Hayfever Hearing loss Hemorrhoids History of fracture of hip (01/04/16) History of gastrointestinal hemorrhage (01/04/16) History of heavy periods History of partial hysterectomy (01/04/16) History of recurrent ear infection History of tilt table evaluation (05/02/15) IBS (irritable bowel syndrome) Interstitial cystitis Irregular periods/menstrual cycles Irritable bowel syndrome with diarrhea (01/04/16) Kidney infection (2002) [place] use Migraines MRSA infection Nondiabetic gastroparesis (01/04/16) Ovarian cyst Painful menstrual periods Panic attacks Partial blindness PTSD (post-traumatic stress disorder) PUD (peptic ulcer disease) Recurrent sinusitis Rheumatoid arthritis Scoliosis Suicide attempt by acetaminophen overdose Tachycardia Tinnitus Vaginal delivery Vertigo Surgical History Anesthesia complication History of bladder surgery (02/2001) History of bladder suspension procedure (06/14/13) History of colonoscopy (01/10/15) History of endoscopy (05/04/07) History of endoscopy (01/10/15) History of hip surgery (12/13/92) History of rectal surgery (01/24/12) History of third molar tooth extraction (1997) Status post appendectomy (08/1996) Status post dilation and curettage (10/2009) Status post hysterectomy (05/07/10) Status post laparoscopic cholecystectomy (03/11/06) Status post laparoscopy (1999) Status post laparoscopy (05/04/07) Family History Brother Age: 46 Back pain Brother Age: 45 Migraines Child Age: 19 Mental health problem Child Age: 18 Asperger syndrome Father Age: 69 Anger Mother Age: 63 Hypothyroidism Anxiety Stroke Sister Age: 46 Thyroid cancer Brain tumor Grandfather No problems noted. Grandmother Brain tumor Grandfather No problems noted. Grandmother Ovarian cancer Social History marital status: number of children: 2 household members: children lives independently: Yes caregiver/support person: Yes housing: house Smoking Status: Never smoker second hand exposure: No alcohol intake: never substance use type: does not use Discharge Plan Discharge Plan Patient Disposition: Home Discharge orders & Medications Prescriptions: New baclofen 10 mg Tablet 20 mg PO BEDTIME Qty: 60 0RF prednisone 20 mg tablet 20 mg PO DAILY Qty: 5 0RF Continued gabapentin 300 mg capsule 300 mg PO DAILY MDD 1500mg Qty: 90 1RF Label Comments: 300mg taken mid day in the afternoon around 1500, 600mg in the am, and 600mg at bedtime Rx Instructions: take 1 cap in the afternoon cholecalciferol (vitamin D3) 100 mcg (4,000 unit) capsule 2,000 unit PO BID Qty: 180 1RF diazepam 5 mg tablet 5 mg PO TID Qty: 90 5RF lamotrigine 200 mg tablet 200 mg PO DAILY Qty: 90 1RF Label Comments: Patient states she needs to take the brand name, blue triangle pill. Off brand can cause suicidal ideation. Trintellix 20 mg tablet 20 mg PO DAILY Qty: 90 1RF prazosin 2 mg capsule 4 mg PO BEDTIME Qty: 60 5RF melatonin 3 mg tablet extended release See Rx Instructions PO .COMPLEX Qty: 90 3RF Rx Instructions: Take 1 tab PO at bedtime. magnesium oxide 500 mg tablet See Rx Instructions .ROUTE .COMPLEX Qty: 180 0RF Dose Instruction: TAKE 2 TABLETS BY MOUTH AT BEDTIME Rx Instructions: TAKE 2 TABLETS BY MOUTH AT BEDTIME levalbuterol HCl 1.25 mg/3 mL solution for nebulization See Rx Instructions .ROUTE .COMPLEX Qty: 300 5RF Dose Instruction: INHALE THE CONTENTS OF 1 VIAL VIA NEBULIZER EVERY 4 HOURS NEEDED FOR WHEEZING Rx Instructions: INHALE THE CONTENTS OF 1 VIAL VIA NEBULIZER EVERY 4 HOURS NEEDED FOR WHEEZING nystatin 100,000 unit/gram powder 1 applic topical TID Qty: 60 3RF Label Comments: Apply under left breast. nystatin 100,000 unit/gram ointment 1 applic topical TID Qty: 30 1RF Label Comments: Apply under panus. Dupixent Syringe 300 mg/2 mL syringe See Rx Instructions .ROUTE .COMPLEX Qty: 4 11RF Dose Instruction: INJECT 1 SYRINGE(300 MG) UNDER THE SKIN EVERY 14 DAYS Rx Instructions: INJECT 1 SYRINGE(300 MG) UNDER THE SKIN EVERY 14 DAYS montelukast 10 mg tablet See Rx Instructions .ROUTE .COMPLEX Qty: 90 2RF Dose Instruction: TAKE 1 TABLET BY MOUTH AT BEDTIME Rx Instructions: TAKE 1 TABLET BY MOUTH AT BEDTIME gabapentin 600 mg tablet 600 mg PO BID MDD 1500 mg Qty: 120 2RF Rx Instructions: take 1 tab in the am and 1 tab at night epinephrine 0.3 mg/0.3 mL auto-injector See Rx Instructions .ROUTE .COMPLEX Qty: 2 1RF Dose Instruction: INJECT 0.3 MLS (0.3 MG TOTAL) INTO THE MUSCLE ONCE NEEDED Label Comments: Patient states she has available, but has never had to use. Rx Instructions: INJECT 0.3 MLS (0.3 MG TOTAL) INTO THE MUSCLE ONCE NEEDED lidocaine 5 % ointment See Rx Instructions .ROUTE .COMPLEX Qty: 49.222 2RF Dose Instruction: APPLY TOPICALLY TWICE DAILY NEEDED FOR PAIN Rx Instructions: APPLY TOPICALLY TWICE DAILY NEEDED FOR PAIN lisinopril 40 mg tablet See Rx Instructions .ROUTE .COMPLEX Qty: 90 1RF Dose Instruction: TAKE 1 TABLET BY MOUTH DAILY Rx Instructions: TAKE 1 TABLET BY MOUTH DAILY at bed time. Incruse Ellipta 62.5 mcg/actuation blister with device See Rx Instructions .ROUTE .COMPLEX Qty: 60 3RF Dose Instruction: 1 INHALATION BY MOUTH EVERY DAY Rx Instructions: 1 INHALATION BY MOUTH EVERY DAY albuterol sulfate [ProAir HFA] 90 mcg/actuation HFA aerosol inhaler 2 puff INHALATION Q4-6H PRN (Reason: Shortness Of Breath) Qty: 8.5 1RF ondansetron 8 mg tablet,disintegrating 8 mg PO Q8H PRN (Reason: nausea and vomiting) Qty: 90 2RF Rx Instructions: Dissolve 1 tab in mouth every 8 hours as needed for nausea and vomiting. omeprazole 40 mg capsule,delayed release(DR/EC) See Rx Instructions .ROUTE .COMPLEX Qty: 180 0RF Dose Instruction: TAKE 1 CAPSULE BY MOUTH TWICE DAILY Rx Instructions: TAKE 1 CAPSULE BY MOUTH TWICE DAILY hydroxyzine HCl 50 mg tablet See Rx Instructions .ROUTE .COMPLEX Qty: 180 1RF Dose Instruction: TAKE 1 TABLET BY MOUTH THREE TIMES DAILY NEEDED FOR ANXIETY Rx Instructions: TAKE 1 TABLET BY MOUTH THREE TIMES DAILY FOR ANXIETY Breo Ellipta 200-25 mcg/dose blister with device See Rx Instructions .ROUTE .COMPLEX Qty: 60 2RF Dose Instruction: INHALE ONE INHALATION EVERY NIGHT AT BEDTIME Rx Instructions: INHALE ONE INHALATION EVERY NIGHT AT BEDTIME baclofen 20 mg tablet See Rx Instructions .ROUTE .COMPLEX Qty: 60 1RF Dose Instruction: TAKE 2 TABLETS BY MOUTH AT BEDTIME. Rx Instructions: TAKE 2 TABLETS BY MOUTH AT BEDTIME. Follow up/Referrals: Rolanda Raymond MD [Primary Care Provider] - 2 Weeks Diet/Activity/Treatments Diet: Diet as Tolerated and Regular Diet comment: Heart healthy Skin/Wound/Dressing Care Skin care: skin fold care continue at home Visit Report/Discharge Packet Visit Report Forms: Patient Portal/API, Stroke Signs & Symptoms Discharge Data Primary Care Provider: Rolanda Raymond Discharges patient from system. Discharge Date/Time: 06/05/22 11:05 Quality VTE Deep Vein Thrombosis/Pulmonary Embolism Present on Admission: No
--- NOTE | 2022-06-05 11:00 | PC.NURSE ---
d/c instructions provided, all questions answered, iv removed, caregiver at bedside
== END 2022-06-05 11:05 | disposition home or self-care (01) | DRG 202 ==
LOC: ED 12:32 → AC 12:49
PROVIDERS: Admitting Provider Family Medicine; Emergency Provider Emergency Medicine; PCP Family Medicine; Referring Provider Emergency Medicine; Visit Provider Family Medicine
DX: J45.901 Unspecified asthma with (acute) exacerbation (principal); I47.1 Supraventricular tachycardia; Z68.43 Body mass index [BMI] 50.0-59.9, adult; M25.562 Pain in left knee; E66.01 Morbid (severe) obesity due to excess calories; R09.02 Hypoxemia; F32.A Depression, unspecified; F41.9 Anxiety disorder, unspecified; G89.29 Other chronic pain; M54.9 Dorsalgia, unspecified; I10 Essential (primary) hypertension; K21.9 Gastro-esophageal reflux disease without esophagitis; Z20.822 Contact with and (suspected) exposure to COVID-19
CPT/HCPCS: 36415; 71045; 71275; 73562; 80048; 80053; 82550; 83690; 83735; 83880; 84145; 84484; 85025; 85379; 85610; 85730; 87635; 93005; 94640; 94760; 96374; 96375; 99222; 99232; 99238; 99284; 99285; C9803; C8929; J1650; J1885; J2930; J7613; Q9957

== ENCOUNTER → 2022-12-30 13:48 | Outpatient (CLI) | payer MEDICARE, MEDICAID, SELFPAY ==
[2022-06-03 12:59] VITALS: BMI 56.1
[2022-12-26 14:39] VITALS: BMI 56.1
--- NOTE | 2022-12-30 13:51 | DI.ECHO.S_ITS ---
[place] +---------+ Hospital +---------+ : : [address] : : : : [id number] : : : : Phone: [phone]+ Echocardiogram Report + + :Name: WILVER CALDERÓN Study Date: 12/30/2022 Height: 70 in : :[facility] ReadingLocation: Weight: 377 lb: : Gender: Female BSA: 2.7 m2 : :: 1980 Age: 42 yrs : :Reason For Study: LE EDEMA : :Ordering Physician: PAULETTE, : :RACHEL Performed By: Rosa Isela Lucas : :Referring: RACHEL CALDWELL : + + Interpretation Summary Technically difficult study. Normal left ventricle size with ejection fraction 60-65%. Mildly dilated right ventricle with normal right ventricular systolic function. No valvular abnormality. Procedure: A two-dimensional transthoracic echocardiogram with color flow and Doppler was performed. The study quality was technically difficult. Comparison is made with the echocardiogram of 06/04/2022. A contrast injection of Definity was performed to improve assessment of LV function. The patient was in sinus rhythm with heart rates between 83-103 bpm during the exam. Left Ventricle: The left ventricle is normal in size and wall thickness. The ejection fraction is estimated to be 60-65%. There are no obvious focal wall motion abnormalities noted but poor endocardial definition reduces the sensitivity for the detection of such. Right Ventricle: The right ventricle is mildly dilated. The right ventricular systolic function is normal. Atria: The left atrial size is normal. Right atrial size is normal. There is no Doppler evidence for an interatrial shunt. Mitral Valve: The mitral valve leaflets appear mildly thickened, but open well. There is no mitral regurgitation noted. Aortic Valve: The aortic valve is not well visualized. There is no aortic valve stenosis. No aortic regurgitation is present. Tricuspid Valve: The tricuspid valve is not well visualized. No tricuspid regurgitation. Pulmonary artery pressures cannot be estimated because of the lack of a measurable TR jet velocity. Pulmonic Valve: The pulmonic valve is not well visualized. There is no pulmonic valvular regurgitation. Great Vessels: The aortic root is normal size. The ascending aorta could not be visualized. The inferior vena cava was not well visualized. Pericardium/ Pleura There is no pericardial effusion. There is no pleural effusion. MMode/2D Measurements & Calculations LVIDd: 5.5 cm LVOT diam: 2.5 cm LVIDs: 3.4 cm Ao root diam: 3.0 cm FS: 39.3 % asc Aorta Diam: 3.2 cm IVSd: 0.83 cm LVPWd: 0.97 cm LV cho. diameter/BSA (cm/m^2): 2.0 LV sys. diameter/BSA (cm/m^2): 1.2 LA A2 area: 13.7 cm2 RA long axis: 5.0 cm LA A4 area: 22.6 cm2 RA area: 18.5 cm2 LA length (vol): 6.0 cm RA vol: 57.9 ml LA vol: 44.0 ml RA : 21.2 ml/m2 LA vol index: 16.1 ml/m2 IVC diam: 2.7 cm RVD1 (basal): 4.5 cm TAPSE: 2.0 cm Doppler Measurements & Calculations Ao V2 max: 173.3 cm/sec LVOT Max El: 117.3 cm/sec Ao V2 mean: 133.3 cm/sec LV V1 max P.5 mmHg Ao max P.0 mmHg LV V1 VTI: 23.4 cm Ao mean P.7 mmHg SUAD(I,D): 3.3 cm2 Ao V2 VTI: 35.0 cm SUAD(V,D): 3.3 cm2 sev ratio: 0.67 SUAD indexed to BSA (cm^2/m^2): 1.2 MV E max el: 127.1 cm/sec PA V2 max: 113.6 cm/sec MV A max el: 123.3 cm/sec PA V2 mean: 80.4 cm/sec MV E/A: 1.0 PA mean P.9 mmHg Med Peak E' El: 8.7 cm/sec E/E' med: 14.6 Lat Peak E' El: 6.7 cm/sec E/E' lat: 18.9 E/e' average: 16.8 MV dec time: 0.23 sec SV(LVOT): 114.5 ml Electronically signed by: Mike Lanier on Reading Physician:12/30/2022 06:55 PM
--- NOTE | 2022-12-30 13:51 | DI.RAD.S_ITS ---
PROCEDURE: XR LUMBAR SPINE 2-3V INDICATIONS: Neuropathy TECHNIQUE: 3 views of the lumbar spine were acquired. COMPARISON: [facility], , L-SPINE 2-3 VIEWS, 12/29/2007, 9:07. FINDINGS: Bones: 5 [id number] vertebrae are present. There is mild diffuse leftward curvature of the lumbar spine. Multilevel disc space narrowing and endplate osteophyte formation, as well as facet hypertrophy, predominantly within the mid and lower lumbar spine. No vertebral body compression fractures. No suspicious bony lesions. Soft tissues: Overlying bowel gas pattern is normal. No suspicious soft tissue calcifications. IMPRESSION: Multilevel degenerative disc and facet disease. No acute fracture. No osseous lesion. If symptoms and/or clinical suspicion for pathology persist, further assessment with repeat, or advanced imaging (e.g., CT, MRI, or bone scan) may be helpful for further assessment. Dictated by: Jania Jones M.D. on 12/30/2022 at 16:38 Approved by: Jania Jones M.D. on 12/30/2022 at 16:40
== END ==
PROVIDERS: PCP Family Medicine; Referring Provider Family Medicine; Visit Provider Family Medicine
DX: M51.36 Other intervertebral disc degeneration, lumbar region (principal); R60.0 Localized edema; G62.9 Polyneuropathy, unspecified
CPT/HCPCS: 72100; C8929; Q9957

== ENCOUNTER 2023-04-23 12:25 | Emergency (ER) | payer MEDICARE, MEDICAID, SELFPAY ==
[2023-01-28 10:59] VITALS: BMI 56.1
[2023-04-23] VITALS (20 sets, daily range): BP systolic 88–145; BP diastolic 46–70; PULSE 72–104; RESP 0–25; TEMP 36.3; O2SAT 91–99; BMI 52.2
--- NOTE | 2023-04-23 13:10 | PC.NURSE ---
pt states this has been going on for 6 months but today her home nurse told her she should come to the ER to be checked as her leg is looking worse. swelling has been present since her admission to hospital in may. she is having work up done on this [facility]
--- NOTE | 2023-04-23 15:50 | DI.US.S_ITS ---
PROCEDURE: US PERIPH VENOUS LOW EXTREM LT INDICATIONS: SWELLING AND REDNESS X 6 MONTHS TECHNIQUE: Real-time imaging, as well as color and pulse Doppler interrogation, were performed of the lower extremity deep veins from the inguinal ligament to the popliteal fossa, with documentation of the visualized calf veins. COMPARISON: None. FINDINGS: The common femoral, femoral, popliteal, and the visualized calf veins are normally compressible, and free of intraluminal thrombus. Color and pulse Doppler demonstrate normal phasic intraluminal flow. There is normal augmentation response to distal compression maneuver. Moderate soft tissue edema can be seen within the calf/ankle region. This study is limited by body habitus. IMPRESSION: No findings of lower extremity deep venous thrombosis. Dictated by: Curry Cruz M.D. on 04/23/2023 at 15:47 Approved by: Curry Cruz M.D. on 04/23/2023 at 15:48
[2023-04-23 16:35] LABS: Add Manual Diff / Slide Review NO; Basophils Absolute Auto 100 /uL (0-100); Basophils Percent Auto 0.7 % (0-2); Eosinophils Absolute Auto 200 /uL (0-450); Eosinophils Percent Auto 2.2 % (2-4); Hematocrit 35.8 % (36-46); Hemoglobin 11.5 g/dL (12.0-16.0); Lymphocytes Absolute Auto 2200 /uL (1100-4500); Lymphocytes Percent Auto 23.9 % (25-40); Mean Corpuscular Hemoglobin 26.1 PG (26-34); Mean Corpuscular Volume 81.4 fL (80-100); Monocytes Absolute Auto 500 /uL (0-900); Monocytes Percent Auto 5.1 % (3-14); Neutrophils Absolute Auto 6300 /uL (1500-7000); Neutrophils Percent Auto 68.1 % (50-75); Platelet Count 276 X10^3/uL (150-400); Red Cell Distribution Width 16.9 % (11.6-14.8); White Blood Cell Count 9.2 X10^3/uL (4.5-11.0)
[2023-04-23 16:53] LABS: Alanine Aminotransferase 20 IU/L (<35); Albumin Globulin Ratio 1.2 (1.0-2.8); Alkaline Phosphatase 84 U/L (38-126); Aspartate Aminotransferase 22 IU/L (14-36); BUN Creatinine Ratio 20.6 (6-22); Bilirubin Total 0.4 mg/dL (0.2-1.3); Blood Urea Nitrogen 14 mg/dL (7-17); Carbon Dioxide 32 mmol/L (22-32); Chloride 97 mmol/L (98-107); Estimated Glomerular Filt Rate > 60 mL/min (>60); Globulin 3.3 g/dL (1.7-4.1); Glucose 99 mg/dL (70-100); HEMOLYSIS < 15 (0-50); Potassium 4.3 mmol/L (3.4-5.1); Sodium 136 mmol/L (137-145); Total Protein 7.3 g/dL (6.3-8.2)
--- NOTE | 2023-04-23 17:51 | ED.EXTPRO ---
HPI - Extremity Problem General Chief complaint: Extremity Problem,Nontraumatic Stated complaint: lt leg swollen/redness Time Seen by Provider: 04/23/23 15:43 Mode of arrival: Wheelchair History of Present Illness HPI Narrative: Patient is a 43-year-old female morbidly obese history of asthma chronically on O2, depression, homebound status presenting today with left leg erythema and swelling. According to PCP notes she has had ongoing edema for the past few months. She denies any worsening chest pain or shortness of breath. She says over last couple of days it has gotten more red and slightly tender to touch. She has not had fever or chills. Related Data Home Medications Medication Instructions Recorded Confirmed [id number] 250 1 tab PO Q4-6H PRN 09/18/22 12/09/22 mg-250 mg-65 mg tablet (Excedrin Extra Strength) galcanezumab-gnlm 120 mg/mL 120 mg SUBCUT QMONTH 11/28/22 12/09/22 subcutaneous syringe (Emgality) dihydroergotamine (Trudhesa) 1 spray intranasal ONCE 04/23/23 Previous Rx's Medication Instructions Recorded magnesium oxide 500 mg tablet See Rx Instructions .Route 12/22/20 .COMPLEX #180 tabs levalbuterol HCl 1.25 mg/3 mL See Rx Instructions .Route 04/09/21 solution for nebulization .COMPLEX #300 mL nystatin 100,000 unit/gram topical 1 applic topical TID #60 grams 06/04/21 powder cholecalciferol (vitamin D3) 100 2,000 unit PO BID #180 caps 11/26/21 mcg (4,000 unit) capsule lidocaine 5 % topical ointment See Rx Instructions .Route 12/17/21 .COMPLEX #49.222 grams albuterol sulfate 90 mcg/actuation 2 puff inhalation Q4-6H PRN 03/19/22 aerosol inhaler (ProAir HFA) Shortness Of Breath #8.5 grams melatonin 3 mg tablet,extended See Rx Instructions PO .COMPLEX 07/05/22 release #90 tabs diazepam 5 mg tablet 5 mg PO TID #90 tabs 11/21/22 gabapentin 300 mg capsule See Rx Instructions .Route 11/25/22 .COMPLEX #360 caps hydroxyzine HCl 50 mg tablet 50 mg PO BID #180 tabs 03/20/23 electronic blood pressure cuff #1 ea 12/09/22 mechanical lift chair #1 ea 12/09/22 lamotrigine 200 mg tablet 200 mg PO DAILY #90 tabs 01/06/23 nystatin 100,000 unit/gram topical See Rx Instructions .Route 01/15/23 ointment .COMPLEX #30 grams epinephrine 0.3 mg/0.3 mL See Rx Instructions .Route 01/20/23 injection, auto-injector .COMPLEX #2 ea lisinopril 40 mg tablet See Rx Instructions .Route 01/28/23 .COMPLEX #90 tabs ondansetron 8 mg disintegrating See Rx Instructions .Route 02/05/23 tablet .COMPLEX #90 tabs elevated toilet seat #1 ea 02/10/23 omeprazole 40 mg capsule,delayed See Rx Instructions .Route 02/10/23 release .COMPLEX #180 caps prazosin 2 mg capsule 4 mg PO BEDTIME #60 caps 03/06/23 bariatric semi electric bed #1 ea 03/19/23 montelukast 10 mg tablet 10 mg PO ONCE PM #90 tabs 03/24/23 baclofen 20 mg tablet 40 mg PO ONCE PM #60 tabs 03/31/23 fluticasone furoate 200 See Rx Instructions .Route 04/14/23 mcg-vilanterol 25 mcg/dose .COMPLEX #60 ea inhalation powder (Breo Ellipta) umeclidinium 62.5 mcg/actuation See Rx Instructions .Route 04/14/23 blister powder for inhalation .COMPLEX #60 ea (Incruse Ellipta) vortioxetine 20 mg tablet 20 mg PO DAILY #90 tabs 04/16/23 (Trintellix) doxycycline hyclate 100 mg capsule 100 mg PO BID #20 caps 04/23/23 Allergies Allergy/AdvReac Type Severity Reaction Status Date / Time bupropion [BUPROPION] Allergy Mild facial rash Verified 04/23/23 12:34 hydrocodone [HYDROCODONE] Allergy Mild rash Verified 04/23/23 12:34 iodine [IODINE] Allergy Mild edema Verified 04/23/23 12:34 lithium AdvReac Severe suicidal Verified 04/23/23 12:34 thoughts lorazepam AdvReac Severe worsens Verified 04/23/23 12:34 panic trazodone AdvReac Severe suicidal Verified 04/23/23 12:34 thoughts diphenhydramine AdvReac Intermediate panic Verified 04/23/23 12:34 [From Benadryl] attacks Review of Systems Review of Systems ROS Unobtainable: All systems reviewed & are unremarkable except as noted in HPI and below Patient History Medical History Abnormal Pap smear of cervix Agoraphobia Anal fissure (01/24/12) Anemia Anxiety Aspirin overdose Asthma Asthma with allergic rhinitis BRCA negative Bursitis of left hip Chronic back pain Chronic cough Chronic headaches Chronic interstitial cystitis (01/04/16) Chronic migraine Corneal pigmentation of both eyes Depression Endometriosis Essential (primary) hypertension Fibromyalgia Frequent UTI Gastric ulcer Gastroparesis GERD (gastroesophageal reflux disease) GI bleeding Hayfever Hearing loss Hemorrhoids History of fracture of hip (01/04/16) History of gastrointestinal hemorrhage (01/04/16) History of heavy periods History of partial hysterectomy (01/04/16) History of recurrent ear infection History of tilt table evaluation (05/02/15) IBS (irritable bowel syndrome) Interstitial cystitis Irregular periods/menstrual cycles Irritable bowel syndrome with diarrhea (01/04/16) Kidney infection (2002) [place] use Migraines MRSA infection Nondiabetic gastroparesis (01/04/16) Ovarian cyst Painful menstrual periods Panic attacks Partial blindness PTSD (post-traumatic stress disorder) PUD (peptic ulcer disease) Recurrent sinusitis Rheumatoid arthritis Scoliosis Suicide attempt by acetaminophen overdose Tachycardia Tinnitus Vaginal delivery Vertigo Surgical History Anesthesia complication History of bladder surgery (02/2001) History of bladder suspension procedure (06/14/13) History of colonoscopy (01/10/15) History of endoscopy (05/04/07) History of endoscopy (01/10/15) History of hip surgery (12/13/92) History of rectal surgery (01/24/12) History of third molar tooth extraction (1997) Status post appendectomy (08/1996) Status post dilation and curettage (10/2009) Status post hysterectomy (05/07/10) Status post laparoscopic cholecystectomy (03/11/06) Status post laparoscopy (1999) Status post laparoscopy (05/04/07) Family History Brother Age: 47 Back pain Brother Age: 46 Migraines Child Age: 20 Mental health problem Child Age: 19 Asperger syndrome Father Age: 70 Anger Mother Age: 64 Hypothyroidism Anxiety Stroke Sister Age: 47 Thyroid cancer Brain tumor Grandfather No problems noted. Grandmother Brain tumor Grandfather No problems noted. Grandmother Ovarian cancer Social History marital status: number of children: 2 household members: children lives independently: Yes caregiver/support person: Yes housing: house Smoking Status: Never smoker second hand exposure: No alcohol intake: never substance use type: does not use Smoking Status: Never smoker alcohol intake frequency: holidays/special occasions only Substance Use Type: does not use Exam Initial Vital Signs Initial Vital Signs: Vital Signs Temperature 97.4 F L 04/23/23 12:34 Pulse Rate 104 H 04/23/23 12:34 Respiratory Rate 18 04/23/23 12:34 Blood Pressure 145/70 H 04/23/23 12:34 Pulse Oximetry 91 04/23/23 12:34 Oxygen Delivery Method Nasal Cannula 04/23/23 12:34 Oxygen Flow Rate 3 04/23/23 12:34 GENERAL: Morbidly obese 43-year-old female HEENT: Head atraumatic,EOMI, pupils reactive, face symmetric, moist mucous membranes CARDIOVASCULAR: Regular rate and rhythm without murmurs, rubs or gallops. RESPIRATORY: Breath sounds equal bilaterally, no wheezes rales or rhonchi. ABDOMEN: Soft, nontender. Normoactive bowel sounds all 4 quadrants. No guarding or rebound. EXTREMITIES: Normal range of motion, no clubbing or edema. Neurovascularly intact NEUROLOGICAL: Alert and oriented x4. SKIN: Left leg mild erythema up the posterior calf left leg swollen and tender distal pedal pulse present Course Orders Ordered: ED Orders 04/23/23 15:50 US periph venous low extrem lt Stat 04/23/23 16:28 CMP [Comprehensive Metabolic Panel] Stat Complete Blood Count AUTO DIFF Stat Discontinued Medications Cephalexin HCl (Cephalexin 250 Mg Capsule) 500 mg PO NOW ONE Stop: 04/23/23 18:06 Last Admin: 04/23/23 18:13 Dose: Not Given Documented By: NR Doxycycline Hyclate (Doxycycline Hyclate 100 Mg Tablet) 100 mg PO NOW ONE Stop: 04/23/23 18:08 Last Admin: 04/23/23 18:18 Dose: 100 mg Documented By: NR Vital Signs Vital signs: Vital Signs - 8 hr 04/23/23 12:34 04/23/23 12:48 04/23/23 12:50 Temperature 97.4 F L Pulse Rate 104 H 94 H Respiratory Rate 18 Blood Pressure 145/70 H 130/61 Pulse Oximetry 91 96 Oxygen Delivery Method Nasal Cannula Oxygen Flow Rate 3 04/23/23 12:50 04/23/23 13:00 04/23/23 13:00 Temperature Pulse Rate 92 H 87 Respiratory Rate 19 15 Blood Pressure 122/64 Pulse Oximetry 97 98 Oxygen Delivery Method Oxygen Flow Rate 04/23/23 13:30 04/23/23 13:31 04/23/23 13:31 Temperature Pulse Rate 89 90 Respiratory Rate 19 21 Blood Pressure 98/48 L Pulse Oximetry 97 96 Oxygen Delivery Method Oxygen Flow Rate 04/23/23 14:00 04/23/23 14:00 04/23/23 14:30 Temperature Pulse Rate 80 Respiratory Rate 0 L Blood Pressure 110/52 L 121/59 L Pulse Oximetry 96 Oxygen Delivery Method Oxygen Flow Rate 04/23/23 14:30 04/23/23 15:01 04/23/23 15:02 Temperature Pulse Rate 85 94 H 82 Respiratory Rate 25 H 18 12 Blood Pressure Pulse Oximetry 98 96 97 Oxygen Delivery Method Oxygen Flow Rate 04/23/23 15:02 04/23/23 15:30 04/23/23 15:31 Temperature Pulse Rate 76 Respiratory Rate 16 Blood Pressure 121/59 L 102/49 L Pulse Oximetry 98 Oxygen Delivery Method Oxygen Flow Rate 04/23/23 15:31 04/23/23 16:00 04/23/23 16:00 Temperature Pulse Rate 80 75 Respiratory Rate 15 18 Blood Pressure 93/53 L Pulse Oximetry 97 97 Oxygen Delivery Method Oxygen Flow Rate 04/23/23 16:30 04/23/23 16:30 04/23/23 17:00 Temperature Pulse Rate 79 Respiratory Rate 21 Blood Pressure 96/54 L 88/46 L Pulse Oximetry 98 Oxygen Delivery Method Oxygen Flow Rate 04/23/23 17:00 04/23/23 17:30 04/23/23 17:30 Temperature Pulse Rate 72 81 Respiratory Rate 10 L 22 Blood Pressure 99/48 L Pulse Oximetry 99 99 Oxygen Delivery Method Oxygen Flow Rate 04/23/23 17:37 04/23/23 17:39 04/23/23 17:47 Temperature Pulse Rate 79 86 Respiratory Rate 19 19 Blood Pressure 114/58 L Pulse Oximetry 99 Oxygen Delivery Method Oxygen Flow Rate 04/23/23 17:47 04/23/23 18:00 04/23/23 18:00 Temperature Pulse Rate 78 Respiratory Rate 24 Blood Pressure 109/58 L 100/51 L Pulse Oximetry 99 Oxygen Delivery Method Oxygen Flow Rate MDM - Extremity (Nontraumatic) Lab Data 04/23/23 16:28 04/23/23 16:28 Labs: Lab Results 04/23/23 04/23/23 Range/Units 16:28 16:28 WBC 9.2 (4.5-11.0) X10^3/uL RBC 4.40 (4.0-5.2) X10^6/uL Hgb 11.5 L (12.0-16.0) g/dL Hct 35.8 L (36-46) % MCV 81.4 (80-100) fL MCH 26.1 (26-34) PG MCHC 32.0 (30-36) % RDW 16.9 H (11.6-14.8) % Plt Count 276 (150-400) X10^3/uL Neut % (Auto) 68.1 (50-75) % Lymph % (Auto) 23.9 L (25-40) % [place] % (Auto) 5.1 (3-14) % Eos % (Auto) 2.2 (2-4) % Baso % (Auto) 0.7 (0-2) % Neut # (Auto) 6300 (1497-0064) /uL Lymph # (Auto) 2200 (9340-7919) /uL [place] # (Auto) 500 (0-900) /uL Eos # (Auto) 200 (0-450) /uL Baso # (Auto) 100 (0-100) /uL Sodium 136 L (137-145) mmol/L Potassium 4.3 (3.4-5.1) mmol/L Chloride 97 L (98-107) mmol/L Carbon Dioxide 32 (22-32) mmol/L BUN 14 (7-17) mg/dL Creatinine 0.68 (0.52-1.04) mg/dL Estimated GFR > 60 (>60) mL/min BUN/Creatinine Ratio 20.6 (6-22) Glucose 99 (70-100) mg/dL Calcium 9.0 (8.4-10.2) mg/dL Total Bilirubin 0.4 (0.2-1.3) mg/dL AST 22 (14-36) IU/L ALT 20 (<35) IU/L Alkaline Phosphatase 84 (38-126) U/L Total Protein 7.3 (6.3-8.2) g/dL Albumin 4.0 (3.5-5.0) g/dL Globulin 3.3 (1.7-4.1) g/dL Albumin/Globulin Ratio 1.2 (1.0-2.8) Point of Care Testing Test Results Negative Urine Dip Bedside Urine Glucose Negative Bedside Urine Bilirubin - Negative Bedside Urine Ketone - Negative Urine Specific [place] 1.005 Bedside Urine Occult Blood - Negative Bedside Urine pH 6.0 Bedside Urine Protein - Negative Bedside Urine Urobilinogen - Negative Bedside Urine Nitrite - Negative Bedside Urine Leukocytes - Negative Esterase Imaging Data US - DVT: Radiologist's Impression: PROCEDURE:? US PERIPH VENOUS LOW EXTREM LT ? INDICATIONS:? SWELLING AND REDNESS X 6 MONTHS ? TECHNIQUE:? Real-time imaging, as well as color and pulse Doppler interrogation, were performed of the lower extremity deep veins from the inguinal ligament to the popliteal fossa, with documentation of the visualized calf veins.? ? COMPARISON:? None. ? FINDINGS:? The common femoral, femoral, popliteal, and the visualized calf veins are normally compressible, and free of intraluminal thrombus.? Color and pulse Doppler demonstrate normal phasic intraluminal flow.? There is normal augmentation response to distal compression maneuver.? ? Moderate soft tissue edema can be seen within the calf/ankle region. ? This study is limited by body habitus.? ? ? IMPRESSION:? No findings of lower extremity deep venous thrombosis. ? ? Dictated by: Curry Cruz M.D. on 04/23/2023 at 15:47 MDM Narrative Medical decision making narrative: Patient is a 43-year-old female with history of morbid obesity presenting today with left leg redness and swelling. Most consistent with a cellulitis without evidence of sepsis. Ultrasound is negative for a DVT. She is given her 1st dose of antibiotic Discharge Plan Departure Patient Disposition: Home Clinical Impression: Cellulitis Instructions: DI for Cellulitis -- Adult Activity Restrictions/Additional Instructions: *You have been diagnosed with cellulitis *What to do: Elevate ice please monitor *Continue to take medications as directed Doxycycline 100 mg twice a day --> ALEJANDRO *Follow up with your primary care provider in 2-3 days or call [phone] *Return to ER if you should have increasing redness swelling pain or any new, worsening or concerning symptoms Prescriptions: New doxycycline hyclate 100 mg capsule 100 mg PO BID Qty: 20 0RF No Action cholecalciferol (vitamin D3) 100 mcg (4,000 unit) capsule 2,000 unit PO BID Qty: 180 1RF hydroxyzine HCl 50 mg tablet 50 mg PO BID Qty: 180 2RF gabapentin 300 mg capsule See Rx Instructions .ROUTE .COMPLEX MDD 1500mg Qty: 360 1RF Patient Comments: 300mg taken mid day in the afternoon around 1500, 600mg in the am, and 600mg at bedtime Rx Instructions: Take 300 mg (1 cap) PO QAM; 300 mg (1 cap) PO QPM; and take 600 mg (2 caps) PO 2 hours before sleep. lamotrigine 200 mg tablet 200 mg PO DAILY Qty: 90 3RF Patient Comments: Patient states she needs to take the brand name, blue triangle pill. Off brand can cause suicidal ideation. magnesium oxide 500 mg tablet See Rx Instructions .ROUTE .COMPLEX Qty: 180 0RF Dose Instruction: TAKE 2 TABLETS BY MOUTH AT BEDTIME Rx Instructions: TAKE 2 TABLETS BY MOUTH AT BEDTIME levalbuterol HCl 1.25 mg/3 mL solution for nebulization See Rx Instructions .ROUTE .COMPLEX Qty: 300 5RF Dose Instruction: INHALE THE CONTENTS OF 1 VIAL VIA NEBULIZER EVERY 4 HOURS NEEDED FOR WHEEZING Rx Instructions: INHALE THE CONTENTS OF 1 VIAL VIA NEBULIZER EVERY 4 HOURS NEEDED FOR WHEEZING nystatin 100,000 unit/gram powder 1 applic topical TID Qty: 60 3RF Patient Comments: Apply under left breast. lidocaine 5 % ointment See Rx Instructions .ROUTE .COMPLEX Qty: 49.222 2RF Dose Instruction: APPLY TOPICALLY TWICE DAILY NEEDED FOR PAIN Rx Instructions: APPLY TOPICALLY TWICE DAILY NEEDED FOR PAIN albuterol sulfate [ProAir HFA] 90 mcg/actuation HFA aerosol inhaler 2 puff INHALATION Q4-6H PRN (Reason: Shortness Of Breath) Qty: 8.5 1RF melatonin 3 mg tablet extended release See Rx Instructions PO .COMPLEX Qty: 90 0RF Rx Instructions: Take 1 tab PO at bedtime. diazepam 5 mg tablet 5 mg PO TID Qty: 90 5RF Emgality Syringe 120 mg/mL syringe 120 mg SUBCUT QMONTH (DME) mechanical lift chair See Rx Instructions .Route .MEDSUPPLY Qty: 1 0RF Rx Instructions: As directed, pt 359 pounds. (DME) electronic blood pressure cuff See Rx Instructions .Route .MEDSUPPLY Qty: 1 0RF Rx Instructions: As directed, to be used daily to monitor blood pressure nystatin 100,000 unit/gram ointment See Rx Instructions .ROUTE .COMPLEX Qty: 30 0RF Dose Instruction: APPLY TOPICALLY TWICE A DAY Rx Instructions: APPLY TOPICALLY TWICE A DAY epinephrine 0.3 mg/0.3 mL auto-injector See Rx Instructions .ROUTE .COMPLEX Qty: 2 0RF Dose Instruction: INJECT 0.3 MLS (0.3 MG TOTAL) INTO THE MUSCLE ONCE NEEDED Rx Instructions: INJECT 0.3 MLS (0.3 MG TOTAL) INTO THE MUSCLE ONCE NEEDED lisinopril 40 mg tablet See Rx Instructions .ROUTE .COMPLEX Qty: 90 0RF Dose Instruction: TAKE 1 TABLET BY MOUTH DAILY Rx Instructions: TAKE 1 TABLET BY MOUTH DAILY ondansetron 8 mg tablet,disintegrating See Rx Instructions .ROUTE .COMPLEX Qty: 90 1RF Dose Instruction: DISSOLVE 1 TABLET IN MOUTH EVERY 8 HOURS NEEDED FOR NAUSEA AND VOMITING. Rx Instructions: DISSOLVE 1 TABLET IN MOUTH EVERY 8 HOURS NEEDED FOR NAUSEA AND VOMITING. (DME) elevated toilet seat See Rx Instructions .Route .MEDSUPPLY Qty: 1 0RF Rx Instructions: As directed omeprazole 40 mg capsule,delayed release(DR/EC) See Rx Instructions .ROUTE .COMPLEX Qty: 180 0RF Dose Instruction: TAKE 1 CAPSULE BY MOUTH TWICE DAILY Rx Instructions: TAKE 1 CAPSULE BY MOUTH TWICE DAILY prazosin 2 mg capsule 4 mg PO BEDTIME Qty: 60 2RF (DME) bariatric semi electric bed See Rx Instructions .Route .MEDSUPPLY Qty: 1 0RF Rx Instructions: Pt Wt 359 lbs. Requires bariatric semi electric hospital bed. Length of need 99 months. Pt with nocturnal hypoxemia, requires oxygen at night with head of bed elevated 30 degrees to maintain adequate oxygen saturations. montelukast 10 mg tablet 10 mg PO ONCE PM Qty: 90 3RF baclofen 20 mg tablet 40 mg PO ONCE PM Qty: 60 0RF Incruse Ellipta 62.5 mcg/actuation blister with device See Rx Instructions .ROUTE .COMPLEX Qty: 60 3RF Dose Instruction: 1 INHALATION BY MOUTH EVERY DAY Rx Instructions: 1 INHALATION BY MOUTH EVERY DAY Breo Ellipta 200-25 mcg/dose blister with device See Rx Instructions .ROUTE .COMPLEX Qty: 60 11RF Dose Instruction: INHALE ONE INHALATION EVERY NIGHT AT BEDTIME Rx Instructions: INHALE ONE INHALATION EVERY NIGHT AT BEDTIME Trintellix 20 mg tablet 20 mg PO DAILY Qty: 90 0RF Trudhesa 0.725 mg/pump act. (4 mg/mL) spray,non-aerosol 1 spray intranasal ONCE Rx Instructions: may repeat in 1 hour (as a single dose). Do not exceed 2 sprays into each nostril per 24 hrs OR 6 sprays total in 7 days Excedrin Extra Strength 250-250-65 mg tablet 1 tab PO Q4-6H PRN Referrals: Rolanda Raymond MD [Primary Care Provider] - Stand Alone Forms: Patient Portal/API
[2023-04-23] MEDS: DOXYCYCLINE HYCLATE 100 MG TABLET PO (18:18)
== END 2023-04-23 18:28 | disposition home or self-care (01) ==
PROVIDERS: Emergency Provider Emergency Medicine; PCP Family Medicine
DX: L03.116 Cellulitis of left lower limb (principal)
CPT/HCPCS: 36415; 80053; 81003; 81025; 85025; 93971; 99284

== ENCOUNTER 2023-05-25 09:29 | Inpatient (IN) | payer MEDICARE, MEDICAID, SELFPAY ==
[2023-01-28 10:59] VITALS: BMI 56.1
[2023-05-25] VITALS (72 sets, daily range): BP systolic 107–164; BP diastolic 56–92; PULSE 57–108; RESP 12–39; TEMP 36.4–36.7; O2SAT 89–100; BMI 47.5
--- NOTE | 2023-05-25 09:40 | ED_ITS ---
HPI - General Adult General Chief complaint: Psychiatric Symptoms Stated complaint: tylenol OD Time Seen by Provider: 05/25/23 09:30 Source: patient and EMS Mode of arrival: EMS Limitations: no limitations History of Present Illness HPI narrative: Patient is a 43-year-old female. Arrives by EMS for evaluation of depression and anxiety and nausea and vomiting. Patient states that yesterday she had an increase in her anxiety because of issues with her daughter and her daughter's boyfriend. This is also in conjunction with her having a migraine headache. Migraine headaches are not uncommon for her. She states that because of everything that was going on last evening between 7 and 8 o'clock last evening she took approximately 6325 mg Tylenol pills and then 20 Excedrin migraine pills. She states that she was doing this because of her anxiety and also because of the headache that she was having but she was also hoping that this medication would also kill her. She called the suicide hotline but did not mentioned taking the medications. This morning EMS was called. Unsure exactly who called EMS why that was the patient's roommate or the patient herself. She states she has not been sleeping all night. She is still feeling anxious. She is not feeling suicidal. She states that it was a ?spur of the moment? event last evening. She has had a history of suicidal attempts 3 years ago. She also drank alcohol last evening. She did take her morning medications this morning as directed. She denies fevers. She is still having headache. No chest pain. Is having nausea. Related Data Home Medications Medication Instructions Recorded Confirmed [id number] 250 1 tab PO Q4-6H PRN 09/18/22 05/06/23 mg-250 mg-65 mg tablet (Excedrin Extra Strength) galcanezumab-gnlm 120 mg/mL 120 mg SUBCUT QMONTH 11/28/22 05/06/23 subcutaneous syringe (Emgality) dihydroergotamine (Trudhesa) 1 spray intranasal ONCE 04/23/23 05/06/23 Previous Rx's Medication Instructions Recorded magnesium oxide 500 mg tablet See Rx Instructions .Route 12/22/20 .COMPLEX #180 tabs levalbuterol HCl 1.25 mg/3 mL See Rx Instructions .Route 04/09/21 solution for nebulization .COMPLEX #300 mL nystatin 100,000 unit/gram topical 1 applic topical TID #60 grams 06/04/21 powder cholecalciferol (vitamin D3) 100 2,000 unit PO BID #180 caps 11/26/21 mcg (4,000 unit) capsule lidocaine 5 % topical ointment See Rx Instructions .Route 12/17/21 .COMPLEX #49.222 grams albuterol sulfate 90 mcg/actuation 2 puff inhalation Q4-6H PRN 03/19/22 aerosol inhaler (ProAir HFA) Shortness Of Breath #8.5 grams melatonin 3 mg tablet,extended See Rx Instructions PO .COMPLEX 07/05/22 release #90 tabs gabapentin 300 mg capsule See Rx Instructions .Route 11/25/22 .COMPLEX #360 caps hydroxyzine HCl 50 mg tablet 50 mg PO BID #180 tabs 11/25/22 electronic blood pressure cuff #1 ea 12/09/22 mechanical lift chair #1 ea 12/09/22 lamotrigine 200 mg tablet 200 mg PO DAILY #90 tabs 01/06/23 nystatin 100,000 unit/gram topical See Rx Instructions .Route 01/15/23 ointment .COMPLEX #30 grams epinephrine 0.3 mg/0.3 mL See Rx Instructions .Route 01/20/23 injection, auto-injector .COMPLEX #2 ea ondansetron 8 mg disintegrating See Rx Instructions .Route 02/05/23 tablet .COMPLEX #90 tabs elevated toilet seat #1 ea 02/10/23 prazosin 2 mg capsule 4 mg PO BEDTIME #60 caps 03/06/23 montelukast 10 mg tablet 10 mg PO ONCE PM #90 tabs 03/24/23 fluticasone furoate 200 See Rx Instructions .Route 04/14/23 mcg-vilanterol 25 mcg/dose .COMPLEX #60 ea inhalation powder (Breo Ellipta) vortioxetine 20 mg tablet 20 mg PO DAILY #90 tabs 04/16/23 (Trintellix) Dupixent Syringe 300 mg/2 mL See Rx Instructions .Route 04/24/23 subcutaneous syringe (dupilumab) .COMPLEX #4 mL lisinopril 40 mg tablet See Rx Instructions .Route 04/29/23 .COMPLEX #90 tabs doxycycline hyclate 100 mg capsule 100 mg PO BID #20 caps 05/06/23 bariatric semi electric bed #1 ea 05/07/23 baclofen 20 mg tablet 40 mg PO QPM #60 tabs 05/08/23 omeprazole 40 mg capsule,delayed 40 mg PO BID #180 caps 05/08/23 release diazepam 5 mg tablet 5 mg PO TID #90 tabs 05/19/23 umeclidinium 62.5 mcg/actuation See Rx Instructions .Route 05/21/23 blister powder for inhalation .COMPLEX #60 ea (Incruse Ellipta) Allergies Allergy/AdvReac Type Severity Reaction Status Date / Time bupropion [BUPROPION] Allergy Mild facial rash Verified 05/06/23 11:55 hydrocodone [HYDROCODONE] Allergy Mild rash Verified 05/06/23 11:55 iodine [IODINE] Allergy Mild edema Verified 05/06/23 11:55 lithium AdvReac Severe suicidal Verified 05/06/23 11:55 thoughts lorazepam AdvReac Severe worsens Verified 05/06/23 11:55 panic trazodone AdvReac Severe suicidal Verified 05/06/23 11:55 thoughts diphenhydramine AdvReac Intermediate panic Verified 05/06/23 11:55 [From Benadryl] attacks Review of Systems Review of Systems ROS Unobtainable: All systems reviewed & are unremarkable except as noted in HPI and below Patient History Medical History Abnormal Pap smear of cervix Agoraphobia Anal fissure (01/24/12) Anemia Anxiety Aspirin overdose Asthma Asthma with allergic rhinitis BRCA negative Bursitis of left hip Chronic back pain Chronic cough Chronic headaches Chronic interstitial cystitis (01/04/16) Chronic migraine Corneal pigmentation of both eyes Depression Endometriosis Essential (primary) hypertension Fibromyalgia Frequent UTI Gastric ulcer Gastroparesis GERD (gastroesophageal reflux disease) GI bleeding Hayfever Hearing loss Hemorrhoids History of fracture of hip (01/04/16) History of gastrointestinal hemorrhage (01/04/16) History of heavy periods History of partial hysterectomy (01/04/16) History of recurrent ear infection History of tilt table evaluation (05/02/15) IBS (irritable bowel syndrome) Interstitial cystitis Irregular periods/menstrual cycles Irritable bowel syndrome with diarrhea (01/04/16) Kidney infection (2002) [place] use Migraines MRSA infection Nondiabetic gastroparesis (01/04/16) Ovarian cyst Painful menstrual periods Panic attacks Partial blindness PTSD (post-traumatic stress disorder) PUD (peptic ulcer disease) Recurrent sinusitis Rheumatoid arthritis Scoliosis Suicide attempt by acetaminophen overdose Tachycardia Tinnitus Vaginal delivery Vertigo Surgical History Anesthesia complication History of bladder surgery (02/2001) History of bladder suspension procedure (06/14/13) History of colonoscopy (01/10/15) History of endoscopy (05/04/07) History of endoscopy (01/10/15) History of hip surgery (12/13/92) History of rectal surgery (01/24/12) History of third molar tooth extraction (1997) Status post appendectomy (08/1996) Status post dilation and curettage (10/2009) Status post hysterectomy (05/07/10) Status post laparoscopic cholecystectomy (03/11/06) Status post laparoscopy (1999) Status post laparoscopy (05/04/07) Family History Brother Age: 47 Back pain Brother Age: 46 Migraines Child Age: 20 Mental health problem Child Age: 19 Asperger syndrome Father Age: 70 Anger Mother Age: 64 Hypothyroidism Anxiety Stroke Sister Age: 47 Thyroid cancer Brain tumor Grandfather No problems noted. Grandmother Brain tumor Grandfather No problems noted. Grandmother Ovarian cancer Social History marital status: number of children: 2 household members: children lives independently: Yes caregiver/support person: Yes housing: house Smoking Status: Never smoker second hand exposure: No alcohol intake: never substance use type: does not use Smoking Status: Never smoker alcohol intake frequency: holidays/special occasions only Substance Use Type: does not use Exam Initial Vital Signs Initial Vital Signs: Vital Signs Temperature 98.1 F 05/25/23 09:46 Pulse Rate 83 05/25/23 09:46 Respiratory Rate 18 05/25/23 09:46 Blood Pressure 132/60 05/25/23 09:46 Pulse Oximetry 98 05/25/23 09:46 Oxygen Delivery Method Room Air 05/25/23 09:46 Const General: cooperative, comfortable and No ill appearing HENMT Head: normal to inspection and normocephalic Resp Effort & Inspection: normal respiratory effort Auscultation: clear to auscultation bilaterally Cardio Rate: regular rate Rhythm: regular rhythm GI Inspection: normal to inspection and non-distended Palpation: soft and No tender Skin General: no rashes or lesions noted Neuro General: patient alert, patient awake, patient oriented x3 and moves all extremities Extrem General: normal to inspection, capillary refill normal and No edema Psych Appearance: grossly normal and well kempt Mental Status: mental status grossly normal Mood: congruent mood Thought Content: normal, no homicidality and suicidality Course Orders Ordered: ED Orders 05/25/23 09:31 Acetaminophen Stat Ammonia (NH3) Stat Basic Metabolic Panel Stat Complete Blood Count AUTO DIFF Stat Ethanol (ETOH) Stat Hepatic (Liver) Panel Stat Lactate (Lactic Acid) Stat Lipase Stat Magnesium Stat PTT Partial Thromboplastin Andrez Stat Test Serum,Qual Stat Prothrombin Time INR Stat Salicylate Stat Thyroid Stimulating Hormone Stat Urinalysis and Microscopic Stat Urine Drug Screen, Rapid Stat EKG-12 Lead Stat 05/25/23 09:32 [place] [facility] [place] Stat 05/25/23 10:01 [place] [facility] [place] Stat 05/25/23 10:09 COVID19 -Nasal RAPID Stat 05/25/23 10:39 Consult to Physician Stat Sodium Chloride (Normal Saline 0.9%) 1,000 mls @ 125 mls/hr IV CONT LAILA Acetylcysteine 22.55866 g/ (Dextrose) 400.6043 mls @ 400.604 mls/hr IV NOW ONE Stop: 05/25/23 11:44 Acetylcysteine 36 g/ Dextrose 750 mls @ 62.5 mls/hr IV Q12H LAILA Stop: 05/26/23 11:59 Vital Signs Vital signs: Vital Signs - 8 hr 05/25/23 09:46 05/25/23 10:10 05/25/23 10:12 Temperature 98.1 F Pulse Rate 83 77 80 Respiratory Rate 18 14 14 Blood Pressure 132/60 Pulse Oximetry 98 97 98 Oxygen Delivery Method Room Air 05/25/23 10:12 05/25/23 10:15 05/25/23 10:16 Temperature Pulse Rate 76 Respiratory Rate 14 Blood Pressure 147/66 H 134/57 L Pulse Oximetry 95 Oxygen Delivery Method 05/25/23 10:16 05/25/23 10:20 05/25/23 10:20 Temperature Pulse Rate 79 76 Respiratory Rate 15 14 Blood Pressure 134/65 Pulse Oximetry 95 93 Oxygen Delivery Method 05/25/23 10:24 05/25/23 10:24 05/25/23 10:28 Temperature Pulse Rate 74 Respiratory Rate 14 Blood Pressure 136/70 138/68 Pulse Oximetry 94 Oxygen Delivery Method 05/25/23 10:28 05/25/23 10:30 05/25/23 10:32 Temperature Pulse Rate 74 74 Respiratory Rate 14 14 Blood Pressure 144/69 H Pulse Oximetry 98 98 Oxygen Delivery Method 05/25/23 10:32 05/25/23 10:37 05/25/23 10:37 Temperature Pulse Rate 76 78 Respiratory Rate 14 14 Blood Pressure 154/79 H Pulse Oximetry 98 98 Oxygen Delivery Method 05/25/23 10:40 05/25/23 10:40 05/25/23 10:44 Temperature Pulse Rate 73 75 Respiratory Rate 13 15 Blood Pressure 147/75 H Pulse Oximetry 98 100 Oxygen Delivery Method 05/25/23 10:44 05/25/23 10:45 05/25/23 10:48 Temperature Pulse Rate 72 Respiratory Rate 14 Blood Pressure 148/80 H 147/84 H Pulse Oximetry 99 Oxygen Delivery Method 05/25/23 10:48 Temperature Pulse Rate 74 Respiratory Rate 15 Blood Pressure Pulse Oximetry 99 Oxygen Delivery Method Medical Decision Making Lab Data 05/25/23 09:31 05/25/23 09:31 Labs: Lab Results 05/25/23 05/25/23 05/25/23 Range/Units 09:31 09:31 09:31 WBC 9.2 (4.5-11.0) X10^3/uL RBC 4.75 (4.0-5.2) X10^6/uL Hgb 12.5 (12.0-16.0) g/dL Hct 38.8 (36-46) % MCV 81.6 (80-100) fL MCH 26.3 (26-34) PG MCHC 32.3 (30-36) % RDW 17.0 H (11.6-14.8) % Plt Count 335 (150-400) X10^3/uL Neut % (Auto) 71.7 (50-75) % Lymph % (Auto) 23.8 L (25-40) % Gillespie % (Auto) 3.0 (3-14) % Eos % (Auto) 0.1 L (2-4) % Baso % (Auto) 1.4 (0-2) % Neut # (Auto) 6600 (0127-4623) /uL Lymph # (Auto) 2200 (7461-1347) /uL Gillespie # (Auto) 300 (0-900) /uL Eos # (Auto) 0 (0-450) /uL Baso # (Auto) 100 (0-100) /uL PT (10.1-12.7) SECONDS INR (0.9-1.3) APTT (26-36) SECONDS Sodium 135 L (137-145) mmol/L Potassium 4.1 (3.4-5.1) mmol/L Chloride 97 L (98-107) mmol/L Carbon Dioxide 25 (22-32) mmol/L BUN 10 (7-17) mg/dL Creatinine 0.59 (0.52-1.04) mg/dL Estimated GFR > 60 (>60) mL/min BUN/Creatinine Ratio 16.9 (6-22) Glucose 141 H (70-100) mg/dL Lactate (0.7-2.1) mmol/L Calcium 9.5 (8.4-10.2) mg/dL Magnesium (1.6-2.3) mg/dL Total Bilirubin (0.2-1.3) mg/dL Conjugated Bilirubin (0.0-0.3) md/dL Unconjugated Bilirubin (0.0-1.1) mg/dL AST (14-36) IU/L ALT (<35) IU/L Alkaline Phosphatase (38-126) U/L Ammonia 9 (9-30) umol/L Total Protein (6.3-8.2) g/dL Albumin (3.5-5.0) g/dL Globulin (1.7-4.1) g/dL Albumin/Globulin Ratio (1.0-2.8) Lipase (23-300) U/L TSH (0.47-4.68) uIU/mL Serum , Qual (Negative) Salicylates (<20) mg/dL Acetaminophen 62 H* (10-30) ug/mL Ethyl Alcohol ( - 10) mg/dL SARS-CoV-2 (PCR) (Negative) 05/25/23 05/25/23 05/25/23 Range/Units 09:31 09:31 09:31 WBC (4.5-11.0) X10^3/uL RBC (4.0-5.2) X10^6/uL Hgb (12.0-16.0) g/dL Hct (36-46) % MCV (80-100) fL MCH (26-34) PG MCHC (30-36) % RDW (11.6-14.8) % Plt Count (150-400) X10^3/uL Neut % (Auto) (50-75) % Lymph % (Auto) (25-40) % Gillespie % (Auto) (3-14) % Eos % (Auto) (2-4) % Baso % (Auto) (0-2) % Neut # (Auto) (1441-6216) /uL Lymph # (Auto) (3570-9776) /uL Gillespie # (Auto) (0-900) /uL Eos # (Auto) (0-450) /uL Baso # (Auto) (0-100) /uL PT 13.5 H (10.1-12.7) SECONDS INR 1.2 (0.9-1.3) APTT 36 (26-36) SECONDS Sodium (137-145) mmol/L Potassium (3.4-5.1) mmol/L Chloride (98-107) mmol/L Carbon Dioxide (22-32) mmol/L BUN (7-17) mg/dL Creatinine (0.52-1.04) mg/dL Estimated GFR (>60) mL/min BUN/Creatinine Ratio (6-22) Glucose (70-100) mg/dL Lactate 2.5 H (0.7-2.1) mmol/L Calcium (8.4-10.2) mg/dL Magnesium 2.1 (1.6-2.3) mg/dL Total Bilirubin 0.5 (0.2-1.3) mg/dL Conjugated Bilirubin 0.0 (0.0-0.3) md/dL Unconjugated Bilirubin 0.1 (0.0-1.1) mg/dL AST 27 (14-36) IU/L ALT 24 (<35) IU/L Alkaline Phosphatase 69 (38-126) U/L Ammonia (9-30) umol/L Total Protein 8.3 H (6.3-8.2) g/dL Albumin 4.3 (3.5-5.0) g/dL Globulin 4.0 (1.7-4.1) g/dL Albumin/Globulin Ratio 1.1 (1.0-2.8) Lipase 33 (23-300) U/L TSH (0.47-4.68) uIU/mL Serum , Qual (Negative) Salicylates 15.1 (<20) mg/dL Acetaminophen (10-30) ug/mL Ethyl Alcohol < 10 ( - 10) mg/dL SARS-CoV-2 (PCR) (Negative) 05/25/23 05/25/23 05/25/23 Range/Units 09:31 09:31 10:09 WBC (4.5-11.0) X10^3/uL RBC (4.0-5.2) X10^6/uL Hgb (12.0-16.0) g/dL Hct (36-46) % MCV (80-100) fL MCH (26-34) PG MCHC (30-36) % RDW (11.6-14.8) % Plt Count (150-400) X10^3/uL Neut % (Auto) (50-75) % Lymph % (Auto) (25-40) % Gillespie % (Auto) (3-14) % Eos % (Auto) (2-4) % Baso % (Auto) (0-2) % Neut # (Auto) (9269-2509) /uL Lymph # (Auto) (0793-4111) /uL Gillespie # (Auto) (0-900) /uL Eos # (Auto) (0-450) /uL Baso # (Auto) (0-100) /uL PT (10.1-12.7) SECONDS INR (0.9-1.3) APTT (26-36) SECONDS Sodium (137-145) mmol/L Potassium (3.4-5.1) mmol/L Chloride (98-107) mmol/L Carbon Dioxide (22-32) mmol/L BUN (7-17) mg/dL Creatinine (0.52-1.04) mg/dL Estimated GFR (>60) mL/min BUN/Creatinine Ratio (6-22) Glucose (70-100) mg/dL Lactate (0.7-2.1) mmol/L Calcium (8.4-10.2) mg/dL Magnesium (1.6-2.3) mg/dL Total Bilirubin (0.2-1.3) mg/dL Conjugated Bilirubin (0.0-0.3) md/dL Unconjugated Bilirubin (0.0-1.1) mg/dL AST (14-36) IU/L ALT (<35) IU/L Alkaline Phosphatase (38-126) U/L Ammonia (9-30) umol/L Total Protein (6.3-8.2) g/dL Albumin (3.5-5.0) g/dL Globulin (1.7-4.1) g/dL Albumin/Globulin Ratio (1.0-2.8) Lipase (23-300) U/L TSH 1.62 (0.47-4.68) uIU/mL Serum , Qual Negative (Negative) Salicylates (<20) mg/dL Acetaminophen (10-30) ug/mL Ethyl Alcohol ( - 10) mg/dL SARS-CoV-2 (PCR) Negative (Negative) ECG Data Attestation: I personally reviewed and interpreted this ECG as follows: Interpretation: Sinus rhythm Ventricular rate 88 QRS 86 milliseconds QTC 498 milliseconds Artifact noted MDM Narrative Medical decision making narrative: Patient is not suicidal currently. But did take a significant amount of Tylenol last evening along with some aspirin. Her Tylenol level this morning is elevated. Seen with her aspirin level. She is showing no signs of aspirin overdose. LFTs unremarkable. Alcohol level is negative. I did discuss the case with poison control. Based on the time when she took the Tylenol and her levels this morning they do recommend starting on NAC. She also should be started on the high dose NAC. This was ordered and started here in the emergency department. They recommend approximately 1 hour prior to completion of the course of NAC repeating a Tylenol level, INR and LFTs so that if these are elevated the NAC can be continued. They also recommend a repeat aspirin level in 4 hours. Because this patient does require admission to the hospital. Discuss the need for admission with the patient. She expressed understanding and agreement. I then discussed the case with Dr. Diez who is on-call for the patient's primary doctor who will admit for further evaluation and treatment. Discharge Plan Departure Patient Disposition: Admitted As Inpatient Clinical Impression: Tylenol overdose, Anxiety, Headache Admit Date/Time: 05/25/23 10:49 Admit Provider: Harsh Diez
[2023-05-25 09:45] LABS: Add Manual Diff / Slide Review NO; Basophils Absolute Auto 100 /uL (0-100); Basophils Percent Auto 1.4 % (0-2); Eosinophils Absolute Auto 0 /uL (0-450); Eosinophils Percent Auto 0.1 % (2-4); Hematocrit 38.8 % (36-46); Hemoglobin 12.5 g/dL (12.0-16.0); Lymphocytes Absolute Auto 2200 /uL (1100-4500); Lymphocytes Percent Auto 23.8 % (25-40); Mean Corpuscular HGB Conc 32.3 % (30-36); Mean Corpuscular Hemoglobin 26.3 PG (26-34); Mean Corpuscular Volume 81.6 fL (80-100); Monocytes Absolute Auto 300 /uL (0-900); Neutrophils Absolute Auto 6600 /uL (1500-7000); Neutrophils Percent Auto 71.7 % (50-75); Platelet Count 335 X10^3/uL (150-400); Red Blood Cell Count 4.75 X10^6/uL (4.0-5.2); White Blood Cell Count 9.2 X10^3/uL (4.5-11.0)
[2023-05-25] MEDS: SODIUM CHLORIDE 0.9% 1,000 ML 125 ML IV ×2 (09:50→18:44)
[2023-05-25 09:52] LABS: INR 1.2 (0.9-1.3); Prothrombin Time 13.5 SECONDS (10.1-12.7)
[2023-05-25 09:55] LABS: PTT Partial Thromboplastin Tim 36 SECONDS (26-36)
[2023-05-25 09:59] LABS: Pregnancy Test Serum,Qual Negative (Negative)
[2023-05-25 10:02] LABS: Alanine Aminotransferase 24 IU/L (<35); Albumin 4.3 g/dL (3.5-5.0); Albumin Globulin Ratio 1.1 (1.0-2.8); Alkaline Phosphatase 69 U/L (38-126); Aspartate Aminotransferase 27 IU/L (14-36); Bilirubin Total 0.5 mg/dL (0.2-1.3); Bilirubin Unconjugated 0.1 mg/dL (0.0-1.1); Ethanol (ETOH) < 10 mg/dL; HEMOLYSIS 19 (0-50); Lipase 33 U/L (23-300); Magnesium 2.1 mg/dL (1.6-2.3); Salicylate 15.1 mg/dL (<20); Total Protein 8.3 g/dL (6.3-8.2)
[2023-05-25 10:03] LABS: Ammonia (NH3) 9 umol/L (9-30); BUN Creatinine Ratio 16.9 (6-22); Blood Urea Nitrogen 10 mg/dL (7-17); Calcium 9.5 mg/dL (8.4-10.2); Carbon Dioxide 25 mmol/L (22-32); Chloride 97 mmol/L (98-107); Estimated Glomerular Filt Rate > 60 mL/min (>60); Glucose 141 mg/dL (70-100); HEMOLYSIS 25 (0-50); Potassium 4.1 mmol/L (3.4-5.1); Sodium 135 mmol/L (137-145)
[2023-05-25 10:04] LABS: Lactate (Lactic Acid) 2.5 mmol/L (0.7-2.1)
[2023-05-25 10:05] LABS: Acetaminophen 62 ug/mL (10-30)
--- NOTE | 2023-05-25 10:11 | PC.NURSE ---
Pt arrives EMS. Reports feeling SI yesterday, states she took 60 Tylenol tablets, uncertain if it was regular strength or xtra strength. She drank 4 Truly alcohol drinks while taking tylenol and took additional 20 Excedrine migraine tablets. She called Suicide Hotline at 1999 but did not tell the agent on the phone that she took any pills. Pt states she threw up 3 large bags of vomit between [id number]. Physician aware. Pt reports SI attempt 3 yrs ago, states she OD on ASA. Pt states she is severly depressed, suffers from severe back pain and severe migraine pain. Pt states she suffers from anxiety and panic attacks. Hx of COPD, asthma. Pt lives with her two adult disabled children. States her family life is very stressful and dysfunctional. VSS.
--- NOTE | 2023-05-25 10:17 | PC.NURSE ---
Pt states she sees a therapist for her depression and has an appointment tomorrow with a therapist. Pt denies SI this morning, states her OD last night was a mistake. Pt states she feels safe in current environment and when asked if she feels like she would harm herself again if she was discharged from ED, she states she does not want to harm herself at this time. VSS. Charge aware. Currently performing 15 min checks.
[2023-05-25 10:31] LABS: COVID19 -Nasal RAPID Negative (Negative)
[2023-05-25 10:32] LABS: Thyroid Stimulating Hormone 1.62 uIU/mL (0.47-4.68)
[2023-05-25] MEDS: DEXTROSE 5% IV ×2 (11:20→12:42)
[2023-05-25] MEDS: WATER IV ×2 (11:20→12:42)
[2023-05-25] MEDS: ACETYLCYSTEINE IV ×2 (11:20→12:42)
[2023-05-25 11:41] LABS: Reflexed Lactate in 2 Hours Y
--- NOTE | 2023-05-25 11:51 | PM.HP.1 ---
History of Present Illness History of Present Illness Date Patient Seen: 05/25/23 Time Patient Seen: 11:30 Date of Onset of Symptoms: 05/24/23 Chief complaint: tylenol OD Narrative: chief complaint: intentional tylenol/ASA ingestion This is a 43yo female with extensive history of asthma and psychiatric issues. She sees Dr. Raymond for PCP and lives with her daughter. She presents to ED via EMS this morning with anxiety/nausea/vomiting. She reports that yesterday evening after an emotional day she decided to take sixty tablets of 325mg acetaminopehn in addition to twenty excedrin/aspirin migraine pills and some alcohol. She states that when she took this dose, she thought it would kill her. She agrees that at the time she wanted to and that is why she took them. Reportedly she did speak with a suicide hotline later that evening but then spent the night unable to sleep I was puking all night. This morning she is feeling anxious and denies current active suicidal intent. Hx of prior suicidal attempt 3 years ago noted. Today she endorses headache and lower abdominal pain. She says she took her regular medications this morning before coming to ED. At time of admission UDS still pending, ETOH negative, salicylates in high normal range, and acetaminophen elevated at 62. PFSH Medical History Abnormal Pap smear of cervix Agoraphobia Anal fissure (01/24/12) Anemia Anxiety Aspirin overdose Asthma Asthma with allergic rhinitis BRCA negative Bursitis of left hip Chronic back pain Chronic cough Chronic headaches Chronic interstitial cystitis (01/04/16) Chronic migraine Corneal pigmentation of both eyes Depression Endometriosis Essential (primary) hypertension Fibromyalgia Frequent UTI Gastric ulcer Gastroparesis GERD (gastroesophageal reflux disease) GI bleeding Hayfever Hearing loss Hemorrhoids History of fracture of hip (01/04/16) History of gastrointestinal hemorrhage (01/04/16) History of heavy periods History of partial hysterectomy (01/04/16) History of recurrent ear infection History of tilt table evaluation (05/02/15) IBS (irritable bowel syndrome) Interstitial cystitis Irregular periods/menstrual cycles Irritable bowel syndrome with diarrhea (01/04/16) Kidney infection (2002) [place] use Migraines MRSA infection Nondiabetic gastroparesis (01/04/16) Ovarian cyst Painful menstrual periods Panic attacks Partial blindness PTSD (post-traumatic stress disorder) PUD (peptic ulcer disease) Recurrent sinusitis Rheumatoid arthritis Scoliosis Suicide attempt by acetaminophen overdose Tachycardia Tinnitus Vaginal delivery Vertigo Surgical History Anesthesia complication History of bladder surgery (02/2001) History of bladder suspension procedure (06/14/13) History of colonoscopy (01/10/15) History of endoscopy (05/04/07) History of endoscopy (01/10/15) History of hip surgery (12/13/92) History of rectal surgery (01/24/12) History of third molar tooth extraction (1997) Status post appendectomy (08/1996) Status post dilation and curettage (10/2009) Status post hysterectomy (05/07/10) Status post laparoscopic cholecystectomy (03/11/06) Status post laparoscopy (1999) Status post laparoscopy (05/04/07) Family History Brother Age: 47 Back pain Brother Age: 46 Migraines Child Age: 20 Mental health problem Child Age: 19 Asperger syndrome Father Age: 70 Anger Mother Age: 64 Hypothyroidism Anxiety Stroke Sister Age: 47 Thyroid cancer Brain tumor Grandfather No problems noted. Grandmother Brain tumor Grandfather No problems noted. Grandmother Ovarian cancer Social History marital status: number of children: 2 household members: children lives independently: Yes caregiver/support person: Yes housing: house Smoking Status: Never smoker second hand exposure: No alcohol intake: never substance use type: does not use Meds Home Medications and Allergies Home Medications Medication Instructions Recorded Confirmed Type magnesium oxide 500 mg tablet See Rx Instructions .Route 12/22/20 05/06/23 Rx .COMPLEX #180 tabs levalbuterol HCl 1.25 mg/3 mL See Rx Instructions .Route 04/09/21 05/06/23 Rx solution for nebulization .COMPLEX #300 mL nystatin 100,000 unit/gram topical 1 applic topical TID #60 grams 06/04/21 05/06/23 Rx powder cholecalciferol (vitamin D3) 100 2,000 unit PO BID #180 caps 11/26/21 05/06/23 Rx mcg (4,000 unit) capsule lidocaine 5 % topical ointment See Rx Instructions .Route 12/17/21 05/06/23 Rx .COMPLEX #49.222 grams albuterol sulfate 90 mcg/actuation 2 puff inhalation Q4-6H PRN 03/19/22 05/06/23 Rx aerosol inhaler (ProAir HFA) Shortness Of Breath #8.5 grams melatonin 3 mg tablet,extended See Rx Instructions PO .COMPLEX 07/05/22 05/06/23 Rx release #90 tabs kgnxjla-xniazptmkiqym-kuaqlnor 250 1 tab PO Q4-6H PRN 09/18/22 05/06/23 History mg-250 mg-65 mg tablet (Excedrin Extra Strength) gabapentin 300 mg capsule See Rx Instructions .Route 11/25/22 05/06/23 Rx .COMPLEX #360 caps hydroxyzine HCl 50 mg tablet 50 mg PO BID #180 tabs 11/25/22 05/06/23 Rx galcanezumab-gnlm 120 mg/mL 120 mg SUBCUT QMONTH 11/28/22 05/06/23 History subcutaneous syringe (Emgality) electronic blood pressure cuff #1 ea 12/09/22 05/06/23 Rx mechanical lift chair #1 ea 12/09/22 05/06/23 Rx lamotrigine 200 mg tablet 200 mg PO DAILY #90 tabs 01/06/23 05/06/23 Rx nystatin 100,000 unit/gram topical See Rx Instructions .Route 01/15/23 05/06/23 Rx ointment .COMPLEX #30 grams epinephrine 0.3 mg/0.3 mL See Rx Instructions .Route 01/20/23 05/06/23 Rx injection, auto-injector .COMPLEX #2 ea ondansetron 8 mg disintegrating See Rx Instructions .Route 02/05/23 05/06/23 Rx tablet .COMPLEX #90 tabs elevated toilet seat #1 ea 02/10/23 05/06/23 Rx prazosin 2 mg capsule 4 mg PO BEDTIME #60 caps 03/06/23 05/06/23 Rx montelukast 10 mg tablet 10 mg PO ONCE PM #90 tabs 03/24/23 05/06/23 Rx fluticasone furoate 200 See Rx Instructions .Route 04/14/23 05/06/23 Rx mcg-vilanterol 25 mcg/dose .COMPLEX #60 ea inhalation powder (Breo Ellipta) vortioxetine 20 mg tablet 20 mg PO DAILY #90 tabs 04/16/23 05/06/23 Rx (Trintellix) dihydroergotamine (Trudhesa) 1 spray intranasal ONCE 04/23/23 05/06/23 History Dupixent Syringe 300 mg/2 mL See Rx Instructions .Route 04/24/23 05/06/23 Rx subcutaneous syringe (dupilumab) .COMPLEX #4 mL lisinopril 40 mg tablet See Rx Instructions .Route 04/29/23 05/06/23 Rx .COMPLEX #90 tabs doxycycline hyclate 100 mg capsule 100 mg PO BID #20 caps 05/06/23 05/06/23 Rx bariatric semi electric bed #1 ea 05/07/23 Rx baclofen 20 mg tablet 40 mg PO QPM #60 tabs 05/08/23 Rx omeprazole 40 mg capsule,delayed 40 mg PO BID #180 caps 05/08/23 Rx release diazepam 5 mg tablet 5 mg PO TID #90 tabs 05/19/23 Rx umeclidinium 62.5 mcg/actuation See Rx Instructions .Route 05/21/23 Rx blister powder for inhalation .COMPLEX #60 ea (Incruse Ellipta) Allergies Allergy/AdvReac Type Severity Reaction Status Date / Time bupropion [BUPROPION] Allergy Mild facial rash Verified 05/06/23 11:55 hydrocodone [HYDROCODONE] Allergy Mild rash Verified 05/06/23 11:55 iodine [IODINE] Allergy Mild edema Verified 05/06/23 11:55 lithium AdvReac Severe suicidal Verified 05/06/23 11:55 thoughts lorazepam AdvReac Severe worsens Verified 05/06/23 11:55 panic trazodone AdvReac Severe suicidal Verified 05/06/23 11:55 thoughts diphenhydramine AdvReac Intermediate panic Verified 05/06/23 11:55 [From Benadryl] attacks Review of Systems Review of Systems Narrative: all systems reviewed and negative except as otherwise documented in HPI Exam Vital Signs (past 8 hours): - 05/25/23 09:46 05/25/23 10:10 05/25/23 10:12 Temperature 98.1 F Pulse Rate 83 77 80 Respiratory Rate 18 14 14 Blood Pressure 132/60 Pulse Oximetry 98 97 98 Oxygen Delivery Method Room Air 05/25/23 10:12 05/25/23 10:15 05/25/23 10:16 Temperature Pulse Rate 76 Respiratory Rate 14 Blood Pressure 147/66 H 134/57 L Pulse Oximetry 95 Oxygen Delivery Method 05/25/23 10:16 05/25/23 10:20 05/25/23 10:20 Temperature Pulse Rate 79 76 Respiratory Rate 15 14 Blood Pressure 134/65 Pulse Oximetry 95 93 Oxygen Delivery Method 05/25/23 10:24 05/25/23 10:24 05/25/23 10:28 Temperature Pulse Rate 74 Respiratory Rate 14 Blood Pressure 136/70 138/68 Pulse Oximetry 94 Oxygen Delivery Method 05/25/23 10:28 05/25/23 10:30 05/25/23 10:32 Temperature Pulse Rate 74 74 Respiratory Rate 14 14 Blood Pressure 144/69 H Pulse Oximetry 98 98 Oxygen Delivery Method 05/25/23 10:32 05/25/23 10:37 05/25/23 10:37 Temperature Pulse Rate 76 78 Respiratory Rate 14 14 Blood Pressure 154/79 H Pulse Oximetry 98 98 Oxygen Delivery Method 05/25/23 10:40 05/25/23 10:40 05/25/23 10:44 Temperature Pulse Rate 73 75 Respiratory Rate 13 15 Blood Pressure 147/75 H Pulse Oximetry 98 100 Oxygen Delivery Method 05/25/23 10:44 05/25/23 10:45 05/25/23 10:48 Temperature Pulse Rate 72 Respiratory Rate 14 Blood Pressure 148/80 H 147/84 H Pulse Oximetry 99 Oxygen Delivery Method 05/25/23 10:48 05/25/23 10:52 05/25/23 10:52 Temperature Pulse Rate 74 75 Respiratory Rate 15 13 Blood Pressure 146/88 H Pulse Oximetry 99 98 Oxygen Delivery Method 05/25/23 10:56 05/25/23 10:56 Temperature Pulse Rate 70 Respiratory Rate 17 Blood Pressure 146/84 H Pulse Oximetry 97 Oxygen Delivery Method Oxygen Delivery Method Room Air Narrative Exam Narrative: morose laying in [facility] on side Const Other: obese well developed Resp Other: one mild scattered wheeze moving air well generally clear otherwise to auscultation Cardio Other: regular rate, S1/S2 GI Other: active bowel sounds, mildly tender to palpation in lower quadrants bilaterally Skin Other: no icterus Neuro Other: alert awake oriented times 3 moving all extremities Psych Appearance: grossly normal Speech and Movement: speech and movement normal Affect: blunted Attitude: cooperative Thought Process: normal Thought Content: normal and suicidality Objective Labs 05/25/23 09:31 05/25/23 09:31 Labs: Laboratory Results - last 24 hr 05/25/23 05/25/23 05/25/23 09:31 09:31 09:31 WBC 9.2 RBC 4.75 Hgb 12.5 Hct 38.8 MCV 81.6 MCH 26.3 MCHC 32.3 RDW 17.0 H Plt Count 335 Neut % (Auto) 71.7 Lymph % (Auto) 23.8 L [place] % (Auto) 3.0 Eos % (Auto) 0.1 L Baso % (Auto) 1.4 Neut # (Auto) 6600 Lymph # (Auto) 2200 [place] # (Auto) 300 Eos # (Auto) 0 Baso # (Auto) 100 PT INR APTT Sodium 135 L Potassium 4.1 Chloride 97 L Carbon Dioxide 25 BUN 10 Creatinine 0.59 Estimated GFR > 60 BUN/Creatinine Ratio 16.9 Glucose 141 H Lactate Calcium 9.5 Magnesium Total Bilirubin Conjugated Bilirubin Unconjugated Bilirubin AST ALT Alkaline Phosphatase Ammonia 9 Total Protein Albumin Globulin Albumin/Globulin Ratio Lipase TSH Serum , Qual Salicylates Acetaminophen 62 H* Ethyl Alcohol SARS-CoV-2 (PCR) 05/25/23 05/25/23 05/25/23 09:31 09:31 09:31 WBC RBC Hgb Hct MCV MCH MCHC RDW Plt Count Neut % (Auto) Lymph % (Auto) [place] % (Auto) Eos % (Auto) Baso % (Auto) Neut # (Auto) Lymph # (Auto) [place] # (Auto) Eos # (Auto) Baso # (Auto) PT 13.5 H INR 1.2 APTT 36 Sodium Potassium Chloride Carbon Dioxide BUN Creatinine Estimated GFR BUN/Creatinine Ratio Glucose Lactate 2.5 H Calcium Magnesium 2.1 Total Bilirubin 0.5 Conjugated Bilirubin 0.0 Unconjugated Bilirubin 0.1 AST 27 ALT 24 Alkaline Phosphatase 69 Ammonia Total Protein 8.3 H Albumin 4.3 Globulin 4.0 Albumin/Globulin Ratio 1.1 Lipase 33 TSH Serum , Qual Salicylates 15.1 Acetaminophen Ethyl Alcohol < 10 SARS-CoV-2 (PCR) 05/25/23 05/25/23 05/25/23 09:31 09:31 10:09 WBC RBC Hgb Hct MCV MCH MCHC RDW Plt Count Neut % (Auto) Lymph % (Auto) [place] % (Auto) Eos % (Auto) Baso % (Auto) Neut # (Auto) Lymph # (Auto) [place] # (Auto) Eos # (Auto) Baso # (Auto) PT INR APTT Sodium Potassium Chloride Carbon Dioxide BUN Creatinine Estimated GFR BUN/Creatinine Ratio Glucose Lactate Calcium Magnesium Total Bilirubin Conjugated Bilirubin Unconjugated Bilirubin AST ALT Alkaline Phosphatase Ammonia Total Protein Albumin Globulin Albumin/Globulin Ratio Lipase TSH 1.62 Serum , Qual Negative Salicylates Acetaminophen Ethyl Alcohol SARS-CoV-2 (PCR) Negative Assessment & Plan Assessment & Plan narrative: #intentional acetaminophen ingestion #acetaminophen levels elevated Initial LFTs are normal. I spoke with Dr. Perry in the ED as well as our inhouse pharmacist Ava relating to plan per poison control toxicology advice. She will receive high dose IV NAC for the next 24 hours, with a repeat set of labs drawn at 23 hours to assess whether further NAC is necessary. Pharmacy is arranging additional doses of this medication from outside facilities to make this possible but we do not currently have a full supply in house at the moment. will need psych eval. #intentional salicylate ingestion Monitor salicylate levels with a repeat level in 4 hours - if not still normal/downtrending at that time consider further intervention Holding lovenox #asthma/copd breathing sounds ok today but it is a smoky day, continue home meds as possible with prn duonebs. #anxiety/depression/bipolar defer precise diagnosis to PCP/specialist continue lamotrigine and prn other meds #hx of migraines hold migraine meds for now #hx of htn ok to continue lisinopril Dispo: admit inpatient ICU for one-on-one monitoring Code: Discussed with patient today she would not want heroic treatments to resuscitate her in the event of her demise - does not want to be intubated if necessary either. DVT: SCDs, hold ac, pt ambulatory MDM: Daughter Lilibeth - [phone] diet: heart healthy
--- NOTE | 2023-05-25 11:59 | PC.NURSE ---
Loading Dose of acetlycysteine running on pump at 400ml @ 400 ml/hr. Pharmacy states loading dose is larger than what the pumps are programmed for so after consult with ED consulting sales executive, med running as IV fluids 400ML @ 400ML/hr for 1 hour infusion. IMMIGRATION INVESTIGATOR Joanne espinoza, report given.
[2023-05-25 12:30] LABS: Lactate 2HR (Lactic Acid Rflx) 1.3 mmol/L (0.7-2.1)
[2023-05-25 14:32] LABS: MRSA (Nasal) PCR Not Detected (Not Detect)
[2023-05-25 14:57] LABS: Appearance Urine UA CLEAR; Bilirubin Urine UA NEGATIVE (NEGATIVE); Color Urine UA YELLOW; Glucose Urine UA NEGATIVE (Negative); Ketones Urine UA 3+ (NEGATIVE); Leukocyte Esterase Urine UA NEGATIVE (NEGATIVE); Nitrite Urine UA NEGATIVE (Negative); Occult Blood Urine UA NEGATIVE (Negative); Protein Urine UA NEGATIVE (Negative); Urobilinogen Urine UA 0.2 E.U./dL (0.2)
[2023-05-25 15:03] LABS: UR Morphine/Opiate cutoff 300 Negative (Negative); Ur Creatinine Normal (Normal); Ur Specific Gravity Normal (Normal); Urine Amphetamines Negative (Negative); Urine Barbiturates Negative (Negative); Urine Benzodiazepines Positive (Negative); Urine Cocaine Negative (Negative); Urine MDMA Negative (Negative); Urine Methadone Negative (Negative); Urine Methamphetamines Negative (Negative); Urine Oxycodone Negative (Negative); Urine Phencyclidine Negative (Negative); Urine Tetrahydrocannabinol Negative (Negative); Urine Tricyclic Antidepressant Negative (Negative); Urine pH Normal (Normal)
[2023-05-25 15:06] LABS: Bacteria Urine None Seen; RBC Urine None Seen (0-5/HPF); WBC Urine None Seen (0-5/HPF)
[2023-05-25 15:07] LABS: Amorphous Sediment Urine 1+; Culture Indicated Urine Cult Not Indicated; Squamous Epithelial Cell Urine 1-5 /HPF (0-5/HPF)
[2023-05-25 16:10] LABS: Salicylate 8.6 mg/dL (<20)
--- NOTE | 2023-05-25 18:02 | PC.NURSE ---
Addendum entered by Joanne Miles R.N. 05/25/23 18:45: Poison control nurse called for update. Will call again in AM when acetylcysteine infusion is complete. Original Note: Day shift: Pt admitted to ICU Rm 230 from ED at approximately 1225. Pt able to transfer from stretcher to ICU bed with minimal assist. A&O, flat affect, lungs expiratory wheezing, desaturation while asleep, 2L NC sats 95%, reports home O2 use at baseline. Pt expressing anxiety, stating, I'm so anxious. I regret last night. Two bouts of emesis. Pt resting comfortably in bed. VSS. 1:1 observation, safety checks Q15 minutes. Bed alarm active. Care ongoing. Will continue to monitor.
[2023-05-25] MEDS: ALBUTEROL/IPRATROPIUM 3 ML AMPUL INH (19:44)
[2023-05-25] MEDS: diazePAM 5 MG TABLET PO (20:42)
[2023-05-25] MEDS: MONTELUKAST 10 MG TABLET PO (20:42)
[2023-05-25] MEDS: PANTOPRAZOLE DR 40 MG TABLET PO (20:42)
[2023-05-25] MEDS: PRAZOSIN 1 MG CAPSULE 4 MG PO (20:42)
[2023-05-25] MEDS: GABAPENTIN 600 MG TABLET PO (20:42)
[2023-05-25] MEDS: DOCUSATE 100 MG CAPSULE PO (22:17)
[2023-05-26] VITALS (9 sets, daily range): BP systolic 132–172; BP diastolic 65–109; PULSE 77–97; RESP 19–34; TEMP 36.1–36.4; O2SAT 92–100
[2023-05-26] MEDS: DEXTROSE 5% IV (00:39)
[2023-05-26] MEDS: ACETYLCYSTEINE IV (00:39)
[2023-05-26] MEDS: WATER IV (00:39)
[2023-05-26] MEDS: MELATONIN 3 MG TABLET 9 MG PO (00:45)
[2023-05-26] MEDS: MAGNESIUM OXIDE 400 MG TABLET PO (00:45)
[2023-05-26] MEDS: diazePAM 5 MG TABLET PO ×2 (01:50→12:35)
[2023-05-26] MEDS: ALBUTEROL/IPRATROPIUM 3 ML AMPUL INH (01:52)
[2023-05-26] MEDS: SODIUM CHLORIDE 0.9% 1,000 ML 125 ML IV ×2 (02:51→10:33)
--- NOTE | 2023-05-26 03:02 | PC.NURSE ---
Addendum entered by Margaret Caldwell R.N. 05/26/23 06:21: Patient was able to sleep from 0200 to 0545 after receiving Valium and neb tx. HRR 70s-90, BP now 155/96. 0600 Dr. Diez notified about previous events and asked if he wanted 1100am labs to be drawn now, he advised restarting the acetylcystein infusion and telling the patient she may without it Patient up to BSC, A/O x4, fairly calm, says she feels better, no throat swelling, and is adamant about not wanting the infusion restarted, she is refusing. States that At home, I was sticking my finger down my throat all night and throwing up alot I don't think there is any left in my system. Original Note: Glue Machine Operator Notes-Patient is 1:1 continues observation with Q15min Safety Monitor Checks, curtain open, patient within sight of staff at all times. Patient is oriented x3, calm at start of shift. Acetylcystein infusing as ordered-see EMAR. Neb tx given by RT per patient request and coarse exp wheezing. RR 20, SpO2 >97 on 2L NC. Scheduled HS meds given along with prn Valium and gabapentin per her request. Up to BSC at 2130, no output. HR noted to go in/out of [place], asymptomatic. At 2330, assist into BR with walker, had medium simmons BM, small carlene red blood while wiping, patient states she does have hemorrhoids. Sat in chair afterward, vomitted 100ml light thin bile emesis. Also states she is having panic attacks and requesting melatonin and magnesium which she normally takes at HS. Called Dr Diez, provider on-call, order obtained for melatonin 9mg HS and magnesium oxide 400mg-given. 2nd bag of acetylcystein hung at 0040 as scheduled, patient resting in chair. At 0135 patient called staff into room saying I feel funny and I think my throat is closing shut She states that she thinks it started right after you started that other bag Stopped infusion, RT called to room, 2 RNs in room assessing patient, HRR 90s, initial BP 172/79, then 166/99, and 152/88, SpO2 >95% on RA, patient talking in full sentences, no hoarseness, stridor, or wheezing, no edema to neck, but throat has erythema to tonsils which are mildly swollen. Patient says she feels anxious, another Valium given along with neb tx. Reassurance given, close monitoring, patient started to relax, back in bed after going into BR again. Will notify provider.
--- NOTE | 2023-05-26 07:59 | P.PN_ITS ---
Subjective Subjective Date Patient Seen: 05/26/23 Exam Vital Signs (past 8 hours): - 05/26/23 00:00 05/26/23 01:32 05/26/23 01:32 Temperature 97.0 F L Pulse Rate 87 85 Respiratory Rate 20 19 Blood Pressure 140/65 169/109 H Pulse Oximetry 100 92 Oxygen Delivery Method Oxygen Flow Rate 2 05/26/23 01:35 05/26/23 01:35 05/26/23 01:42 Temperature Pulse Rate 85 78 Respiratory Rate 27 H 34 H Blood Pressure 172/79 H Pulse Oximetry 95 96 Oxygen Delivery Method Oxygen Flow Rate 05/26/23 01:42 05/26/23 01:53 05/26/23 02:00 Temperature Pulse Rate 97 H Respiratory Rate 28 H Blood Pressure 166/99 H 152/88 H Pulse Oximetry 95 93 Oxygen Delivery Method Room Air Oxygen Flow Rate 0 0 05/26/23 04:00 Temperature 97.5 F L Pulse Rate 77 Respiratory Rate 21 Blood Pressure Pulse Oximetry 96 Oxygen Delivery Method Oxygen Flow Rate 2 Oxygen Delivery Method Room Air Oxygen Flow Rate 2 Objective Labs 05/25/23 09:31 05/25/23 09:31 Labs: Laboratory Results - last 24 hr 05/25/23 05/25/23 05/25/23 09:31 09:31 09:31 WBC 9.2 RBC 4.75 Hgb 12.5 Hct 38.8 MCV 81.6 MCH 26.3 MCHC 32.3 RDW 17.0 H Plt Count 335 Neut % (Auto) 71.7 Lymph % (Auto) 23.8 L [place] % (Auto) 3.0 Eos % (Auto) 0.1 L Baso % (Auto) 1.4 Neut # (Auto) 6600 Lymph # (Auto) 2200 [place] # (Auto) 300 Eos # (Auto) 0 Baso # (Auto) 100 PT INR APTT Sodium 135 L Potassium 4.1 Chloride 97 L Carbon Dioxide 25 BUN 10 Creatinine 0.59 Estimated GFR > 60 BUN/Creatinine Ratio 16.9 Glucose 141 H Lactate Calcium 9.5 Magnesium Total Bilirubin Conjugated Bilirubin Unconjugated Bilirubin AST ALT Alkaline Phosphatase Ammonia 9 Total Protein Albumin Globulin Albumin/Globulin Ratio Lipase TSH Serum , Qual Urine Color Urine Appearance Urine pH Ur Specific [place] Urine Protein Urine Glucose (UA) Urine Ketones Urine Occult Blood Urine Nitrate Urine Bilirubin Urine Urobilinogen Ur Leukocyte Esterase Urine RBC Urine WBC Ur Squamous Epith Cells Amorphous Sediment Urine Bacteria Ur Culture Indicated? Nasal Screen MRSA (PCR) Salicylates U Opiates 300ng/mL cut Ur Oxycodone Screen Urine Methadone Screen Acetaminophen 62 H* Ur Barbiturates Screen U Tricyclic Antidepress Ur Phencyclidine Scrn Ur Amphetamines Screen U Methamphetamines Scrn Ur MDMA Scrn (Ecstasy) U Benzodiazepines Scrn Urine Cocaine Screen U Marijuana (THC) Screen Ethyl Alcohol SARS-CoV-2 (PCR) 05/25/23 05/25/23 05/25/23 09:31 09:31 09:31 WBC RBC Hgb Hct MCV MCH MCHC RDW Plt Count Neut % (Auto) Lymph % (Auto) [place] % (Auto) Eos % (Auto) Baso % (Auto) Neut # (Auto) Lymph # (Auto) [place] # (Auto) Eos # (Auto) Baso # (Auto) PT 13.5 H INR 1.2 APTT 36 Sodium Potassium Chloride Carbon Dioxide BUN Creatinine Estimated GFR BUN/Creatinine Ratio Glucose Lactate 2.5 H Calcium Magnesium 2.1 Total Bilirubin 0.5 Conjugated Bilirubin 0.0 Unconjugated Bilirubin 0.1 AST 27 ALT 24 Alkaline Phosphatase 69 Ammonia Total Protein 8.3 H Albumin 4.3 Globulin 4.0 Albumin/Globulin Ratio 1.1 Lipase 33 TSH Serum , Qual Urine Color Urine Appearance Urine pH Ur Specific [place] Urine Protein Urine Glucose (UA) Urine Ketones Urine Occult Blood Urine Nitrate Urine Bilirubin Urine Urobilinogen Ur Leukocyte Esterase Urine RBC Urine WBC Ur Squamous Epith Cells Amorphous Sediment Urine Bacteria Ur Culture Indicated? Nasal Screen MRSA (PCR) Salicylates 15.1 U Opiates 300ng/mL cut Ur Oxycodone Screen Urine Methadone Screen Acetaminophen Ur Barbiturates Screen U Tricyclic Antidepress Ur Phencyclidine Scrn Ur Amphetamines Screen U Methamphetamines Scrn Ur MDMA Scrn (Ecstasy) U Benzodiazepines Scrn Urine Cocaine Screen U Marijuana (THC) Screen Ethyl Alcohol < 10 SARS-CoV-2 (PCR) 05/25/23 05/25/23 05/25/23 09:31 09:31 10:09 WBC RBC Hgb Hct MCV MCH MCHC RDW Plt Count Neut % (Auto) Lymph % (Auto) [place] % (Auto) Eos % (Auto) Baso % (Auto) Neut # (Auto) Lymph # (Auto) [place] # (Auto) Eos # (Auto) Baso # (Auto) PT INR APTT Sodium Potassium Chloride Carbon Dioxide BUN Creatinine Estimated GFR BUN/Creatinine Ratio Glucose Lactate Calcium Magnesium Total Bilirubin Conjugated Bilirubin Unconjugated Bilirubin AST ALT Alkaline Phosphatase Ammonia Total Protein Albumin Globulin Albumin/Globulin Ratio Lipase TSH 1.62 Serum , Qual Negative Urine Color Urine Appearance Urine pH Ur Specific [place] Urine Protein Urine Glucose (UA) Urine Ketones Urine Occult Blood Urine Nitrate Urine Bilirubin Urine Urobilinogen Ur Leukocyte Esterase Urine RBC Urine WBC Ur Squamous Epith Cells Amorphous Sediment Urine Bacteria Ur Culture Indicated? Nasal Screen MRSA (PCR) Salicylates U Opiates 300ng/mL cut Ur Oxycodone Screen Urine Methadone Screen Acetaminophen Ur Barbiturates Screen U Tricyclic Antidepress Ur Phencyclidine Scrn Ur Amphetamines Screen U Methamphetamines Scrn Ur MDMA Scrn (Ecstasy) U Benzodiazepines Scrn Urine Cocaine Screen U Marijuana (THC) Screen Ethyl Alcohol SARS-CoV-2 (PCR) Negative 05/25/23 05/25/23 05/25/23 12:10 13:09 14:54 WBC RBC Hgb Hct MCV MCH MCHC RDW Plt Count Neut % (Auto) Lymph % (Auto) [place] % (Auto) Eos % (Auto) Baso % (Auto) Neut # (Auto) Lymph # (Auto) [place] # (Auto) Eos # (Auto) Baso # (Auto) PT INR APTT Sodium Potassium Chloride Carbon Dioxide BUN Creatinine Estimated GFR BUN/Creatinine Ratio Glucose Lactate 1.3 Calcium Magnesium Total Bilirubin Conjugated Bilirubin Unconjugated Bilirubin AST ALT Alkaline Phosphatase Ammonia Total Protein Albumin Globulin Albumin/Globulin Ratio Lipase TSH Serum , Qual Urine Color Yellow Urine Appearance Clear Urine pH 5.0 Ur Specific [place] 1.020 Urine Protein Negative Urine Glucose (UA) Negative Urine Ketones 3+ H Urine Occult Blood Negative Urine Nitrate Negative Urine Bilirubin Negative Urine Urobilinogen 0.2 Ur Leukocyte Esterase Negative Urine RBC None seen Urine WBC None seen Ur Squamous Epith Cells 1-5 /hpf Amorphous Sediment 1+ Urine Bacteria None seen Ur Culture Indicated? Cult not indicated Nasal Screen MRSA (PCR) Not detected Salicylates U Opiates 300ng/mL cut Ur Oxycodone Screen Urine Methadone Screen Acetaminophen Ur Barbiturates Screen U Tricyclic Antidepress Ur Phencyclidine Scrn Ur Amphetamines Screen U Methamphetamines Scrn Ur MDMA Scrn (Ecstasy) U Benzodiazepines Scrn Urine Cocaine Screen U Marijuana (THC) Screen Ethyl Alcohol SARS-CoV-2 (PCR) 05/25/23 05/25/23 14:54 15:55 WBC RBC Hgb Hct MCV MCH MCHC RDW Plt Count Neut % (Auto) Lymph % (Auto) [place] % (Auto) Eos % (Auto) Baso % (Auto) Neut # (Auto) Lymph # (Auto) [place] # (Auto) Eos # (Auto) Baso # (Auto) PT INR APTT Sodium Potassium Chloride Carbon Dioxide BUN Creatinine Estimated GFR BUN/Creatinine Ratio Glucose Lactate Calcium Magnesium Total Bilirubin Conjugated Bilirubin Unconjugated Bilirubin AST ALT Alkaline Phosphatase Ammonia Total Protein Albumin Globulin Albumin/Globulin Ratio Lipase TSH Serum , Qual Urine Color Urine Appearance Urine pH Ur Specific [place] Urine Protein Urine Glucose (UA) Urine Ketones Urine Occult Blood Urine Nitrate Urine Bilirubin Urine Urobilinogen Ur Leukocyte Esterase Urine RBC Urine WBC Ur Squamous Epith Cells Amorphous Sediment Urine Bacteria Ur Culture Indicated? Nasal Screen MRSA (PCR) Salicylates 8.6 U Opiates 300ng/mL cut Negative Ur Oxycodone Screen Negative Urine Methadone Screen Negative Acetaminophen Ur Barbiturates Screen Negative U Tricyclic Antidepress Negative Ur Phencyclidine Scrn Negative Ur Amphetamines Screen Negative U Methamphetamines Scrn Negative Ur MDMA Scrn (Ecstasy) Negative U Benzodiazepines Scrn Positive H Urine Cocaine Screen Negative U Marijuana (THC) Screen Negative Ethyl Alcohol SARS-CoV-2 (PCR) [facility] Medical History Abnormal Pap smear of cervix Agoraphobia Anal fissure (01/24/12) Anemia Anxiety Aspirin overdose Asthma Asthma with allergic rhinitis BRCA negative Bursitis of left hip Chronic back pain Chronic cough Chronic headaches Chronic interstitial cystitis (01/04/16) Chronic migraine Corneal pigmentation of both eyes Depression Endometriosis Essential (primary) hypertension Fibromyalgia Frequent UTI Gastric ulcer Gastroparesis GERD (gastroesophageal reflux disease) GI bleeding Hayfever Hearing loss Hemorrhoids History of fracture of hip (01/04/16) History of gastrointestinal hemorrhage (01/04/16) History of heavy periods History of partial hysterectomy (01/04/16) History of recurrent ear infection History of tilt table evaluation (05/02/15) IBS (irritable bowel syndrome) Interstitial cystitis Irregular periods/menstrual cycles Irritable bowel syndrome with diarrhea (01/04/16) Kidney infection (2002) [place] use Migraines MRSA infection Nondiabetic gastroparesis (01/04/16) Ovarian cyst Painful menstrual periods Panic attacks Partial blindness PTSD (post-traumatic stress disorder) PUD (peptic ulcer disease) Recurrent sinusitis Rheumatoid arthritis Scoliosis Suicide attempt by acetaminophen overdose Tachycardia Tinnitus Vaginal delivery Vertigo Surgical History Anesthesia complication History of bladder surgery (02/2001) History of bladder suspension procedure (06/14/13) History of colonoscopy (01/10/15) History of endoscopy (05/04/07) History of endoscopy (01/10/15) History of hip surgery (12/13/92) History of rectal surgery (01/24/12) History of third molar tooth extraction (1997) Status post appendectomy (08/1996) Status post dilation and curettage (10/2009) Status post hysterectomy (05/07/10) Status post laparoscopic cholecystectomy (03/11/06) Status post laparoscopy (1999) Status post laparoscopy (05/04/07) Family History Brother Age: 47 Back pain Brother Age: 46 Migraines Child Age: 20 Mental health problem Child Age: 19 Asperger syndrome Father Age: 70 Anger Mother Age: 64 Hypothyroidism Anxiety Stroke Sister Age: 47 Thyroid cancer Brain tumor Grandfather No problems noted. Grandmother Brain tumor Grandfather No problems noted. Grandmother Ovarian cancer Social History marital status: number of children: 2 household members: children lives independently: Yes caregiver/support person: Yes housing: house Smoking Status: Never smoker second hand exposure: No alcohol intake: current substance use type: does not use
[2023-05-26] MEDS: lisinopriL 20 MG TABLET 40 MG PO (08:31)
[2023-05-26] MEDS: DOCUSATE 100 MG CAPSULE PO (08:31)
[2023-05-26] MEDS: lamoTRIgine 100 MG TABLET 200 MG PO (08:32)
[2023-05-26] MEDS: PANTOPRAZOLE DR 40 MG TABLET PO (08:32)
--- NOTE | 2023-05-26 09:17 | CM.DANOTE ---
Addendum entered by AZAR Wood 05/26/23 13:40: ADD: SW spoke to [facility] Yin and Dr. Raymond together and pt denying any suicidal ideation and pt quite impulsive at baseline with likely undiagnosed autism/sensory integration issues and feel pt is able to d/c back home with least restrictive environment and close f/u with PCP and Psychiatry/therapy this week. Per therapist recommendation, PCP will order outpt OT services for sensory integration skills to better support the pt with tolerating over stimulation. Therapist and MD request taxi voucher to home as pt has limited Medicaid transportation rides and request is to save those for the upcoming OT sessions as well as PCP and mental health appointments. SW called [employer] and they can transport pt today around 1345 to home. SW met bedside with pt and explained role and she confirms she feels safe for d/c home and no suicidal ideation or plan and her young adult Dtr is home and will be there when she discharges (pt's Dtr and son both have autism and unable to drive). MARIANGEL updated RN. Plan: Patient to d/c home today via [employer] Voucher at 1345 to home and very close outpt f/u with PCP and [facility]. BF Original Note: Patient is a 43 yo female who was admitted on 05/25/23 for Intentional Overdose. Pt has [facility] and [facility] for insurance and her PCP is Dr. Rolanda Raymond. EMR was reviewed. Per MD, pt with hx of significant depression and pt admits to intentional overdose with medications and alcohol but sought help after overdose and initiated vomiting. Per RN, pt denying current suicidal ideation. Pt with complex medical and mental health hx and finally approved for hospital bed through insurance and limited in her strength and motivation due to these issues. Young adult Dtr came by and visited pt earlier yesterday. Pt's PCP rounding on pt now and labs to be drawn around 1100 to determine if pt stable for possible discharge. Pt has a hx of suicidal attempt 3 yrs ago. Pt established at [facility] with Psychiatrist Dr. Colunga and therapist Yin and MARIANGEL called [facility] and pt has scheduled ongoing appointments with one already scheduled today with therapist at 1000 and [facility] confirmed that therapist is willing to meet bedside with pt today at 1000 and also alerted pt's Psychiatrist and they will keep PCP updated. MARIANGEL called [facility] and confirmed that pt still has assigned RICKY CM Yadira [phone] as pt has medical and mental health complex hx. SW faxed H&P to [facility]ICKY CM. Plan: SW to follow closely for therapist bedside appointment today at 1000 and labs to be drawn towards determining discharge planning needs. AZAR Wood Discharge Planning/Care Management Advanced directive, confirm from FAMILY Start: 05/25/23 12:55 Freq: Q24H Status: Active Protocol: Document 05/25/23 13:17 MANUEL (Rec: 05/25/23 13:18 MANUEL [id number]) Advance Directive, confirm on record Time 13:18 Person contacted patient declined Copy received No Advanced directive available on record No CM Discharge Assessment Start: 05/26/23 09:12 Freq: Status: Active Protocol: Document 05/26/23 09:12 BF (Rec: 05/26/23 09:16 BF [id number]) Discharge Planning Assessment Assigned Card Clothier AZAR Blake DPOA/Assigned Designee Name none Advance Directives? No Advance Directives on File No History Provided By Patient,Family Member,Medical Record Has Patient been admitted in last 30 No days? Prior Living Arrangements Apartment/Condo Household Members children Type of transporation used prior to Relies on Others admit Independent with ADL's Yes: somewhat, quite sedentary Is patient alert and oriented? Yes Needs Assistance With Meal Prep,Home Chores / Shopping Caregiver for Another No: older teen/young adult children Comment Pt established at [facility] with Psychiatrist Dr. Colunga and therapist Yin Comment Ongoing outpt mental health services Barriers to Discharge Yes Comment Expect DC back home w/ teenagers and RICKY caregiver Discharge Plan Home Transportation Arrangement May need taxi services, [facility] transport Referrals Initiated Other Additional Comment [facility], [facility], and [facility] (mobile outreach team ) Review Status In Process Please Provide Date Initial DC 05/26/23 Assessment Was Performed Next Review Type Continued Stay Review ED Psychiatric Symptoms Assessment Start: 05/25/23 10:00 Freq: Status: Discharge Protocol: Document 05/25/23 09:45 KB (Rec: 05/25/23 10:07 KB [id number]) Psychiatric Symptoms Assessment Symptoms/Complaint Feels Depressed Onset t-1 Duration Intermittent History Of Same Yes Context Recent Alcohol Abuse, Significant Life Stressor Worsens With Alcohol Associated Psychiatric Symptoms Depression,Suicidal Ideation Associated Symptoms Insomnia,Headache,Nausea, Vomiting If Self Harm Admits Thoughts of Self Harm, Has Acted on Plan,Intentional Overdose Details of Plan SI attempt last night. Does not feel SI today and does not have a future plan at this time. Level of Observation Intermittent Precautions Safety precautions initiated Room placement non-ligature mitigated room Safety Interventions Explanation of process given to patient Level of Consciousness Alert,Appropriate,Awake Patient Orientation Name,Age,Birthday,Month,Year, Place,Situation Patient Behavior/Mood Cooperative Ability to Follow Directions Fair Patient Cognition Impaired No Affect Description Calm Patient Appearance Disheveled Hallucination Type None Delusion Description Not Present Thought Process: Impoverished Depressive Symptoms Back Pain,Crying Spells, Difficulty Sleeping,Increased Anxiety,Insomnia,Recurrent Thoughts of or Suicide, Unhappiness Major Depressive Episode Yes Suicidal Ideation Frequent Suicide Plan No Plan Homicidal Ideation None Nausea/Vomiting Nauseated,Vomiting Emesis Description Clear Document 05/25/23 11:45 KB (Rec: 05/25/23 12:42 KB [id number]) Psychiatric Symptoms Assessment Symptoms/Complaint Suicidal Ideation Duration Intermittent History Of Same Yes Context Recent Alcohol Abuse, Significant Life Stressor Worsens With Alcohol Associated Psychiatric Symptoms Depression Associated Symptoms Insomnia,Nausea,Vomiting If Self Harm Admits Thoughts of Self Harm Level of Observation Intermittent Safety Interventions Explanation of process given to patient Level of Consciousness Alert,Appropriate Patient Orientation Name,Birthday,Date,Situation Patient Behavior/Mood Cooperative Ability to Follow Directions Fair Patient Cognition Impaired No Affect Description Calm Patient Appearance Unkempt Hallucination Type None Delusion Description Not Present Thought Process: Impoverished Depressive Symptoms Back Pain,Difficulty Sleeping, Increased Anxiety,Insomnia Major Depressive Episode Yes Suicidal Ideation Frequent Suicide Plan No Plan Homicidal Ideation None Nausea/Vomiting Nauseated,Vomiting
[2023-05-26 11:22] LABS: Acetaminophen < 10 ug/mL (10-30); Alanine Aminotransferase 19 IU/L (<35); Albumin 3.4 g/dL (3.5-5.0); Albumin Globulin Ratio 1.1 (1.0-2.8); Alkaline Phosphatase 53 U/L (38-126); Aspartate Aminotransferase 18 IU/L (14-36); BUN Creatinine Ratio 10.4 (6-22); Bilirubin Total 0.3 mg/dL (0.2-1.3); Blood Urea Nitrogen 5 mg/dL (7-17); Calcium 8.8 mg/dL (8.4-10.2); Carbon Dioxide 29 mmol/L (22-32); Chloride 103 mmol/L (98-107); Estimated Glomerular Filt Rate > 60 mL/min (>60); Globulin 3.2 g/dL (1.7-4.1); Glucose 106 mg/dL (70-100); HEMOLYSIS < 15 (0-50); Potassium 3.1 mmol/L (3.4-5.1); Sodium 137 mmol/L (137-145); Total Protein 6.6 g/dL (6.3-8.2)
[2023-05-26] MEDS: POTASSIUM CHLORIDE 20 MEQ TAB 40 MEQ PO (12:32)
--- NOTE | 2023-05-26 12:52 | P.DS_ITS ---
History of Present Illness History of Present Illness Date Patient Seen: 05/26/23 Chief complaint: Tylenol OD Narrative: This is a 43yo female with extensive history of asthma and psychiatric issues. She sees Dr. Raymond for PCP and lives with her daughter.? She presents to ED via EMS this morning with anxiety/nausea/vomiting.? She reports that yesterday evening after an emotional day she decided to take sixty tablets of 325mg acetaminopehn in addition to twenty excedrin/aspirin migraine pills and some alcohol.? She states that when she took this dose, she thought it would kill her.? She agrees that at the time she wanted to and that is why she took them. Reportedly she did speak with a suicide hotline later that evening but then spent the night unable to sleep I was puking all night. This morning she is feeling anxious and denies current active suicidal intent. Hx of prior suicidal attempt 3 years ago noted.? Today she endorses headache and lower abdominal pain.? She says she took her regular medications this morning before coming to ED. ? At time of admission UDS still pending, ETOH negative, salicylates in high normal range, and acetaminophen elevated at 62.? Discharge Providers Provider Date of admission: 05/25/23 10:49 Discharge Date: 05/26/23 Primary care physician: Rolanda Raymond MD Consults: 05/25/23 09:32 Consult to [facility] [place] - Neuropsychology Director Stat Comment: 05/25/23 10:01 Consult to [facility] [place] - Neuropsychology Director Stat Comment: 05/25/23 10:39 Consult to Physician Stat Comment: Consulting Provider: Rolanda Raymond Reason for consultation: Admission Has provider been notified: No 05/25/23 11:49 Consult to Discharge Planning Routine Comment: requires psych eval prior to d/c 05/25/23 12:55 Consult to Dietitian, Adult Routine Comment: Reason For Exam: Weight loss without trying Discharge provider: Rolanda Raymond MD Summary Hospital Course Discharge Diagnosis: Intentional acetaminophen ingestion Elevated acetaminophen levels #intentional acetaminophen ingestion #acetaminophen levels elevated Initial LFTs are normal. I spoke with Dr. Perry in the ED as well as our inhouse pharmacist Ava relating to plan per poison control toxicology advice.? She will receive high dose IV NAC for the next 24 hours, with a repeat set of labs drawn at 23 hours to assess whether further NAC is necessary. Pharmacy is arranging additional doses of this medication from outside facilities to make this possible but we do not currently have a full supply in house at the moment. will need psych eval. #intentional salicylate ingestion Monitor salicylate levels with a repeat level in 4 hours - if not still normal/downtrending at that time consider further intervention Holding lovenox #asthma/copd breathing sounds ok today but it is a smoky day, continue home meds as possible with prn duonebs. #anxiety/depression/bipolar defer precise diagnosis to PCP/specialist continue lamotrigine and prn other meds #hx of migraines hold migraine meds for now #hx of htn ok to continue lisinopril Hospital Course: The pt was admitted due to intentional acetaminophen ingestion with elevated levels. Poison control was contacted, and recommended IV N-Acetylcysteine for 24hrs, with repeat labs at 23hrs to determine if additional dosing was necessary. Approximately 14hrs into treatment, the pt had an episode where she felt that she couldn't breath well. The N-Acetylcysteine was stopped due to concern for allergic reaction, however the episode resolved without further intervention and was more likely the result of a panic attack. The pt refused additional dosing of the N-Acetylcysteine, despite discussion of the risks of being untreated. Repeat labs were drawn 24hrs after initiation of the treatment, showing normalized acetaminophen levels and normal liver enzymes. The pt met with her outpatient counselor while in the hospital, who cleared her for discharge home. They did recommend outpatient occupational therapy due to sensory issues likely contributing to the episode prior to ingestion. This will be placed from the outpatient setting. The pt will otherwise discharge home on her usual home medications, with a safety plan in place. Status at Discharge Cognitive/behavioral status at discharge: oriented and at baseline, oriented Functional status at discharge: uses cane/walker Overall status at discharge: patient is back to baseline Exam Vital Signs (past 8 hours): - 05/26/23 08:31 05/26/23 08:41 05/26/23 08:00 Temperature 97.4 F L Pulse Rate 96 H 82 Respiratory Rate 20 Blood Pressure 132/89 132/89 Pulse Oximetry 98 Oxygen Delivery Method Nasal Cannula Oxygen Flow Rate 2 Oxygen Delivery Method Nasal Cannula Oxygen Flow Rate 2 Narrative Exam Narrative: Gen: NAD, sitting comfortably in bed CV: RRR, no murmurs Resp: clear to auscultation bilaterally Abd: soft, nontender, morbidly obese Ext: no edema Objective Labs 05/25/23 09:31 05/26/23 10:50 Labs: Laboratory Results - last 24 hr 05/25/23 05/25/23 05/25/23 13:09 14:54 14:54 Sodium Potassium Chloride Carbon Dioxide BUN Creatinine Estimated GFR BUN/Creatinine Ratio Glucose Calcium Total Bilirubin AST ALT Alkaline Phosphatase Total Protein Albumin Globulin Albumin/Globulin Ratio Urine Color Yellow Urine Appearance Clear Urine pH 5.0 Ur Specific [place] 1.020 Urine Protein Negative Urine Glucose (UA) Negative Urine Ketones 3+ H Urine Occult Blood Negative Urine Nitrate Negative Urine Bilirubin Negative Urine Urobilinogen 0.2 Ur Leukocyte Esterase Negative Urine RBC None seen Urine WBC None seen Ur Squamous Epith Cells 1-5 /hpf Amorphous Sediment 1+ Urine Bacteria None seen Ur Culture Indicated? Cult not indicated Nasal Screen MRSA (PCR) Not detected Salicylates U Opiates 300ng/mL cut Negative Ur Oxycodone Screen Negative Urine Methadone Screen Negative Acetaminophen Ur Barbiturates Screen Negative U Tricyclic Antidepress Negative Ur Phencyclidine Scrn Negative Ur Amphetamines Screen Negative U Methamphetamines Scrn Negative Ur MDMA Scrn (Ecstasy) Negative U Benzodiazepines Scrn Positive H Urine Cocaine Screen Negative U Marijuana (THC) Screen Negative 05/25/23 05/26/23 15:55 10:50 Sodium 137 Potassium 3.1 L Chloride 103 Carbon Dioxide 29 BUN 5 L Creatinine 0.48 L Estimated GFR > 60 BUN/Creatinine Ratio 10.4 Glucose 106 H Calcium 8.8 Total Bilirubin 0.3 AST 18 ALT 19 Alkaline Phosphatase 53 Total Protein 6.6 Albumin 3.4 L Globulin 3.2 Albumin/Globulin Ratio 1.1 Urine Color Urine Appearance Urine pH Ur Specific [place] Urine Protein Urine Glucose (UA) Urine Ketones Urine Occult Blood Urine Nitrate Urine Bilirubin Urine Urobilinogen Ur Leukocyte Esterase Urine RBC Urine WBC Ur Squamous Epith Cells Amorphous Sediment Urine Bacteria Ur Culture Indicated? Nasal Screen MRSA (PCR) Salicylates 8.6 U Opiates 300ng/mL cut Ur Oxycodone Screen Urine Methadone Screen Acetaminophen < 10 Ur Barbiturates Screen U Tricyclic Antidepress Ur Phencyclidine Scrn Ur Amphetamines Screen U Methamphetamines Scrn Ur MDMA Scrn (Ecstasy) U Benzodiazepines Scrn Urine Cocaine Screen U Marijuana (THC) Screen PFSH Medical History Abnormal Pap smear of cervix Agoraphobia Anal fissure (01/24/12) Anemia Anxiety Aspirin overdose Asthma Asthma with allergic rhinitis BRCA negative Bursitis of left hip Chronic back pain Chronic cough Chronic headaches Chronic interstitial cystitis (01/04/16) Chronic migraine Corneal pigmentation of both eyes Depression Endometriosis Essential (primary) hypertension Fibromyalgia Frequent UTI Gastric ulcer Gastroparesis GERD (gastroesophageal reflux disease) GI bleeding Hayfever Hearing loss Hemorrhoids History of fracture of hip (01/04/16) History of gastrointestinal hemorrhage (01/04/16) History of heavy periods History of partial hysterectomy (01/04/16) History of recurrent ear infection History of tilt table evaluation (05/02/15) IBS (irritable bowel syndrome) Interstitial cystitis Irregular periods/menstrual cycles Irritable bowel syndrome with diarrhea (01/04/16) Kidney infection (2002) [place] use Migraines MRSA infection Nondiabetic gastroparesis (01/04/16) Ovarian cyst Painful menstrual periods Panic attacks Partial blindness PTSD (post-traumatic stress disorder) PUD (peptic ulcer disease) Recurrent sinusitis Rheumatoid arthritis Scoliosis Suicide attempt by acetaminophen overdose Tachycardia Tinnitus Vaginal delivery Vertigo Surgical History Anesthesia complication History of bladder surgery (02/2001) History of bladder suspension procedure (06/14/13) History of colonoscopy (01/10/15) History of endoscopy (05/04/07) History of endoscopy (01/10/15) History of hip surgery (12/13/92) History of rectal surgery (01/24/12) History of third molar tooth extraction (1997) Status post appendectomy (08/1996) Status post dilation and curettage (10/2009) Status post hysterectomy (05/07/10) Status post laparoscopic cholecystectomy (03/11/06) Status post laparoscopy (1999) Status post laparoscopy (05/04/07) Family History Brother Age: 47 Back pain Brother Age: 46 Migraines Child Age: 20 Mental health problem Child Age: 19 Asperger syndrome Father Age: 70 Anger Mother Age: 64 Hypothyroidism Anxiety Stroke Sister Age: 47 Thyroid cancer Brain tumor Grandfather No problems noted. Grandmother Brain tumor Grandfather No problems noted. Grandmother Ovarian cancer Social History marital status: number of children: 2 household members: children lives independently: Yes caregiver/support person: Yes housing: house Smoking Status: Never smoker second hand exposure: No alcohol intake: current substance use type: does not use Discharge Plan Discharge Plan Patient Disposition: Home Discharge orders & Medications Prescriptions: Continued cholecalciferol (vitamin D3) 100 mcg (4,000 unit) capsule 2,000 unit PO BID Qty: 180 1RF hydroxyzine HCl 50 mg tablet 50 mg PO BID Qty: 180 2RF gabapentin 300 mg capsule See Rx Instructions .ROUTE .COMPLEX MDD 1500mg Qty: 360 1RF Patient Comments: 300mg taken mid day in the afternoon around 1500, 600mg in the am, and 600mg at bedtime Rx Instructions: Take 300 mg (1 cap) PO QAM; 300 mg (1 cap) PO QPM; and take 600 mg (2 caps) PO 2 hours before sleep. lamotrigine 200 mg tablet 200 mg PO DAILY Qty: 90 3RF Patient Comments: Patient states she needs to take the brand name, blue triangle pill. Off brand can cause suicidal ideation. magnesium oxide 500 mg tablet See Rx Instructions .ROUTE .COMPLEX Qty: 180 0RF Dose Instruction: TAKE 2 TABLETS BY MOUTH AT BEDTIME Rx Instructions: TAKE 2 TABLETS BY MOUTH AT BEDTIME levalbuterol HCl 1.25 mg/3 mL solution for nebulization See Rx Instructions .ROUTE .COMPLEX Qty: 300 5RF Dose Instruction: INHALE THE CONTENTS OF 1 VIAL VIA NEBULIZER EVERY 4 HOURS NEEDED FOR WHEEZING Rx Instructions: INHALE THE CONTENTS OF 1 VIAL VIA NEBULIZER EVERY 4 HOURS NEEDED FOR WHEE ZING nystatin 100,000 unit/gram powder 1 applic topical TID Qty: 60 3RF Patient Comments: Apply under left breast. lidocaine 5 % ointment See Rx Instructions .ROUTE .COMPLEX Qty: 49.222 2RF Dose Instruction: APPLY TOPICALLY TWICE DAILY NEEDED FOR PAIN Rx Instructions: APPLY TOPICALLY TWICE DAILY NEEDED FOR PAIN albuterol sulfate [ProAir HFA] 90 mcg/actuation HFA aerosol inhaler 2 puff INHALATION Q4-6H PRN (Reason: Shortness Of Breath) Qty: 8.5 1RF melatonin 3 mg tablet extended release See Rx Instructions PO .COMPLEX Qty: 90 0RF Rx Instructions: Take 1 tab PO at bedtime. Emgality Syringe 120 mg/mL syringe 120 mg SUBCUT QMONTH (DME) mechanical lift chair See Rx Instructions .Route .MEDSUPPLY Qty: 1 0RF Rx Instructions: As directed, pt 359 pounds. (DME) electronic blood pressure cuff See Rx Instructions .Route .MEDSUPPLY Qty: 1 0RF Rx Instructions: As directed, to be used daily to monitor blood pressure nystatin 100,000 unit/gram ointment See Rx Instructions .ROUTE .COMPLEX Qty: 30 0RF Dose Instruction: APPLY TOPICALLY TWICE A DAY Rx Instructions: APPLY TOPICALLY TWICE A DAY epinephrine 0.3 mg/0.3 mL auto-injector See Rx Instructions .ROUTE .COMPLEX Qty: 2 0RF Dose Instruction: INJECT 0.3 MLS (0.3 MG TOTAL) INTO THE MUSCLE ONCE NEEDED Rx Instructions: INJECT 0.3 MLS (0.3 MG TOTAL) INTO THE MUSCLE ONCE NEEDED ondansetron 8 mg tablet,disintegrating See Rx Instructions .ROUTE .COMPLEX Qty: 90 1RF Dose Instruction: DISSOLVE 1 TABLET IN MOUTH EVERY 8 HOURS NEEDED FOR NAUSEA AND VOMITING. Rx Instructions: DISSOLVE 1 TABLET IN MOUTH EVERY 8 HOURS NEEDED FOR NAUSEA AND VOMITING. (DME) elevated toilet seat See Rx Instructions .Route .MEDSUPPLY Qty: 1 0RF Rx Instructions: As directed prazosin 2 mg capsule 4 mg PO BEDTIME Qty: 60 2RF montelukast 10 mg tablet 10 mg PO ONCE PM Qty: 90 3RF Breo Ellipta 200-25 mcg/dose blister with device See Rx Instructions .ROUTE .COMPLEX Qty: 60 11RF Dose Instruction: INHALE ONE INHALATION EVERY NIGHT AT BEDTIME Rx Instructions: INHALE ONE INHALATION EVERY NIGHT AT BEDTIME Trintellix 20 mg tablet 20 mg PO DAILY Qty: 90 0RF lisinopril 40 mg tablet See Rx Instructions .ROUTE .COMPLEX Qty: 90 1RF Dose Instruction: TAKE 1 TABLET BY MOUTH DAILY Rx Instructions: TAKE 1 TABLET BY MOUTH DAILY (DME) bariatric semi electric bed See Rx Instructions .Route .MEDSUPPLY Qty: 1 0RF Rx Instructions: Pt Wt 359 lbs. Requires bariatric semi electric hospital bed. Length of need 99 months. Pt with nocturnal hypoxemia, requires oxygen at night with head of bed elevated 30 degrees to maintain adequate oxygen saturations. omeprazole 40 mg capsule,delayed release(DR/EC) 40 mg PO BID Qty: 180 3RF baclofen 20 mg tablet 40 mg PO QPM Qty: 60 0RF diazepam 5 mg tablet 5 mg PO TID Qty: 90 5RF Incruse Ellipta 62.5 mcg/actuation blister with device See Rx Instructions .ROUTE .COMPLEX Qty: 60 3RF Dose Instruction: 1 INHALATION BY MOUTH EVERY DAY Rx Instructions: 1 INHALATION BY MOUTH EVERY DAY Excedrin Extra Strength 250-250-65 mg tablet 1 tab PO Q4-6H PRN (Reason: Migraine Headache) Follow up/Referrals: Rolanda Raymond MD [Primary Care Provider] - 2 Weeks Diet/Activity/Treatments Diet: Diet as Tolerated and Regular Visit Report/Discharge Packet Instructions: DI for Depression -- Adult Stand Alone Forms: Patient Portal/API, Stroke Signs & Symptoms Discharge Data Primary Care Provider: Rolanda Raymond Discharges patient from system. Discharge Date/Time: 05/26/23 13:45
--- NOTE | 2023-05-26 13:51 | PC.NURSE ---
Discharge: Pt A&O, outpatient therapist with pt and cleared pt for safe discharge. Dr. Raymond involved in discussion with [facility]CHOLOG[facility] and outpatient therapist. Pt agreeable to the plan. IV d/c'd, telemetry removed, pt assisted in dressing. Discharge education provided, pt signed discharge paperwork. Pt wheeled via W/C to [facility] [employer] at approximately 1345 by PCT.
== END 2023-05-26 13:45 | disposition home or self-care (01) | DRG 918 ==
LOC: ED 10:01 → AC 10:50 → ICU 12:25
PROVIDERS: Admitting Provider Family Medicine; Emergency Provider Emergency Medicine; PCP Family Medicine; Referring Provider Emergency Medicine; Visit Provider Family Medicine
DX: T39.1X2A Poisoning by 4-Aminophenol derivatives, intentional self-harm, initial encounter (principal); Z68.42 Body mass index [BMI] 45.0-49.9, adult; E66.01 Morbid (severe) obesity due to excess calories; T39.012A Poisoning by aspirin, intentional self-harm, initial encounter; R89.2 Abnormal level of other drugs, medicaments and biological substances in specimens from other organs, systems and tissues; G43.909 Migraine, unspecified, not intractable, without status migrainosus; J44.9 Chronic obstructive pulmonary disease, unspecified; F31.9 Bipolar disorder, unspecified; I10 Essential (primary) hypertension; F41.9 Anxiety disorder, unspecified
CPT/HCPCS: 36415; 80048; 80053; 80076; 80305; 80320; 80329; 81001; 82140; 83605; 83690; 83735; 84443; 84703; 85025; 85610; 85730; 87635; 87797; 93005; 94640; 96365; 99238; 99284; C9803; G0480; J0132

== ENCOUNTER → 2023-08-07 09:02 | Outpatient (CLI) | payer MEDICARE, MEDICAID, SELFPAY ==
[2023-07-02 10:19] VITALS: BMI 47.5
--- NOTE | 2023-08-07 09:03 | DI.RAD.S_ITS ---
PROCEDURE: XR THORACIC SPINE 3V INDICATIONS: Neck pain TECHNIQUE: 3 views of the thoracic spine were acquired. COMPARISON: [facility], CR, XR THORACIC SPINE 3V, 05/23/2020, 15:31. FINDINGS: Evaluation is limited secondary to motion/technique and body habitus. Bones: Within these limitations, no acute fractures or dislocations. No suspicious bony lesions. 12 pairs of ribs are noted, and appear intact where visualized. Mild multilevel degenerative changes with anterior osteophytosis. Soft tissues: No paravertebral stripe thickening. IMPRESSION: Evaluation is limited secondary to motion/technique and body habitus 1. Within these limitations, no acute fracture or traumatic subluxation. If pain persists, consider cross-sectional imaging for further evaluation. 2. Mild multilevel degenerative changes. Dictated by: Arlin Simon M.D. on 08/07/2023 at 15:55 Approved by: Arlin Simon M.D. on 08/07/2023 at 17:00
--- NOTE | 2023-08-07 09:03 | DI.RAD.S_ITS ---
PROCEDURE: XR SHOULDER RT MIN 2V INDICATIONS: Right shoulder pain TECHNIQUE: 3 views of the shoulder were acquired. COMPARISON: [facility], , SHOULDER MINIMUM 2 VIEW LEFT, 06/22/2014, 17:19. FINDINGS: Bones: No fractures or dislocations. Normal glenohumeral alignment. Acromioclavicular and coracoclavicular intervals are congruent. No suspicious bony lesions. Visualized ribs appear intact. Soft tissues: No suspicious soft tissue calcifications. IMPRESSION: No acute bony abnormality. Dictated by: Arlin Simon M.D. on 08/07/2023 at 15:50 Approved by: Arlin Simon M.D. on 08/07/2023 at 15:54
--- NOTE | 2023-08-07 09:03 | DI.RAD.S_ITS ---
PROCEDURE: XR CERVICAL SPINE 4V OR 5V INDICATIONS: Neck pain TECHNIQUE: 5 views of the cervical spine were acquired. COMPARISON: None. FINDINGS: Bones: Lateral view extends from the skull base to C6. No acute fracture or traumatic subluxation of the cervical spine. Moderate degenerative changes at C5-C6 with anterior osteophytosis. Remainder of the spine demonstrates mild multilevel degenerative changes . Oblique views demonstrate no high-grade osseous neural foraminal narrowing. No suspicious bony lesions. The lateral C1 masses align on the odontoid view. Soft tissues: Prevertebral soft tissues are normal in thickness. IMPRESSION: 1. No acute fracture or traumatic subluxation of the cervical spine extending from the skull base to C6. 2. Mild to moderate multilevel degenerative changes, worse at C5-C6. Dictated by: Arlin Simon M.D. on 08/07/2023 at 17:00 Approved by: Arlin Simon M.D. on 08/07/2023 at 17:11
== END ==
PROVIDERS: PCP Family Medicine; Referring Provider Anesthesiology; Visit Provider Anesthesiology
DX: M47.812 Spondylosis without myelopathy or radiculopathy, cervical region; M25.511 Pain in right shoulder; M47.814 Spondylosis without myelopathy or radiculopathy, thoracic region; M54.6 Pain in thoracic spine; M54.2 Cervicalgia
CPT/HCPCS: 72050; 72072; 73030

== ENCOUNTER 2023-10-04 07:37 | Emergency (ER) | payer MEDICARE, MEDICAID, SELFPAY ==
[2023-07-02 10:19] VITALS: BMI 47.5
[2023-10-04 07:38] VITALS: BP 139/65; PULSE 83; RESP 18; TEMP 36.6; O2SAT 99; BMI 45.9
--- NOTE | 2023-10-04 07:44 | ED_ITS ---
HPI - General Adult General Chief complaint: Extremity Injury, Lower Stated complaint: R back/hip pain Time Seen by Provider: 10/04/23 07:37 Source: patient Mode of arrival: EMS Limitations: no limitations History of Present Illness HPI narrative: Patient is a 43-year-old female who is here for evaluation of right-sided hip/groin/lower back discomfort. Symptoms occurred after she fell at home approximately 1 week ago. She also states she fell 1 week prior to that. Both times landing on her right hip. Both times were mechanical falls. One week ago she was trying to move a water pitcher. She was on her knees pushing it when it fell over and she fell over landing on her right hip. Has had difficult time walking and moving since then. She has had low back pain and degenerative disc disease diagnosed in the past. He states her symptoms have not improved in the past week which is why she came to the emergency department this morning. Related Data Home Medications Medication Instructions Recorded Confirmed [id number] 250 1 tab PO Q4-6H PRN Migraine 09/18/22 08/21/23 mg-250 mg-65 mg tablet (Excedrin Headache Extra Strength) galcanezumab-gnlm 120 mg/mL 120 mg SUBCUT QMONTH 11/28/22 08/21/23 subcutaneous syringe (Emgality) ivabradine 5 mg tablet (Corlanor) 5 mg PO BID 07/04/23 08/21/23 dupilumab 300 mg/2 mL subcutaneous 300 mg SUBCUT Q4W 07/29/23 08/21/23 syringe (Dupixent) Previous Rx's Medication Instructions Recorded magnesium oxide 500 mg tablet See Rx Instructions .Route 12/22/20 .COMPLEX #180 tabs levalbuterol HCl 1.25 mg/3 mL See Rx Instructions .Route 04/09/21 solution for nebulization .COMPLEX #300 mL nystatin 100,000 unit/gram topical 1 applic topical TID #60 grams 06/04/21 powder cholecalciferol (vitamin D3) 100 2,000 unit PO BID #180 caps 11/26/21 mcg (4,000 unit) capsule lidocaine 5 % topical ointment See Rx Instructions .Route 12/17/21 .COMPLEX #49.222 grams albuterol sulfate 90 mcg/actuation 2 puff inhalation Q4-6H PRN 03/19/22 aerosol inhaler (ProAir HFA) Shortness Of Breath #8.5 grams melatonin 3 mg tablet,extended See Rx Instructions PO .COMPLEX 07/05/22 release #90 tabs electronic blood pressure cuff #1 ea 12/09/22 mechanical lift chair #1 ea 12/09/22 nystatin 100,000 unit/gram topical See Rx Instructions .Route 01/15/23 ointment .COMPLEX #30 grams epinephrine 0.3 mg/0.3 mL See Rx Instructions .Route 01/20/23 injection, auto-injector .COMPLEX #2 ea elevated toilet seat #1 ea 02/10/23 fluticasone furoate 200 See Rx Instructions .Route 04/14/23 mcg-vilanterol 25 mcg/dose .COMPLEX #60 ea inhalation powder (Breo Ellipta) umeclidinium 62.5 mcg/actuation See Rx Instructions .Route 05/21/23 blister powder for inhalation .COMPLEX #60 ea (Incruse Ellipta) vortioxetine 20 mg tablet 20 mg PO DAILY #90 tabs 06/17/23 (Trintellix) Lamictal 200 mg tablet 200 mg PO DAILY #90 tabs 07/08/23 (lamotrigine) gabapentin 300 mg capsule See Rx Instructions .Route 07/08/23 .COMPLEX #270 caps hydroxyzine HCl 50 mg tablet 50 mg PO BID #180 tabs 07/08/23 montelukast 10 mg tablet 10 mg PO ONCE PM #90 tabs 07/08/23 omeprazole 40 mg capsule,delayed 40 mg PO BID #180 caps 07/08/23 release diazepam 5 mg tablet 5 mg PO TID #90 tabs 07/10/23 ondansetron 8 mg disintegrating 8 mg PO Q8H PRN for 08/08/23 tablet nausea/vomiting #90 tabs baclofen 20 mg tablet 40 mg (2 x 20 mg) PO QPM #60 tabs 08/28/23 prazosin 2 mg capsule 4 mg (2 x 2 mg) PO BEDTIME #180 08/28/23 caps bariatric semi electric bed #1 ea 09/15/23 lisinopril 40 mg tablet 40 mg PO DAILY #90 tabs 09/26/23 tramadol 50 mg tablet 50 mg PO Q8H PRN pain #7 tabs 10/04/23 Allergies Allergy/AdvReac Type Severity Reaction Status Date / Time bupropion [BUPROPION] Allergy Mild facial rash Verified 10/04/23 07:47 hydrocodone [HYDROCODONE] Allergy Mild rash Verified 10/04/23 07:47 iodine [IODINE] Allergy Mild edema Verified 10/04/23 07:47 lithium AdvReac Severe suicidal Verified 10/04/23 07:47 thoughts lorazepam AdvReac Severe worsens Verified 10/04/23 07:47 panic trazodone AdvReac Severe suicidal Verified 10/04/23 07:47 thoughts diphenhydramine AdvReac Intermediate panic Verified 10/04/23 07:47 [From Benadryl] attacks Review of Systems Gastrointestinal Gastrointestinal: Reports system reviewed and no additional complaints, except as documented Genitourinary Genitourinary: Reports system reviewed and no additional complaints, except as documented Musculoskeletal Musculoskeletal: Reports system reviewed and no additional complaints, except as documented Integumentary/Breasts Skin/Breast: Reports system reviewed and no additional complaints, except as documented Neurologic Neurologic: Reports system reviewed and no additional complaints, except as documented Patient History Medical History Cervical radiculopathy Low back pain Thoracic back pain Shoulder pain Neck pain Chronic migraine [place] use Suicide attempt by acetaminophen overdose Aspirin overdose Essential (primary) hypertension Tachycardia Rheumatoid arthritis Chronic cough Asthma Hayfever Agoraphobia Panic attacks PTSD (post-traumatic stress disorder) Depression Anxiety Migraines Chronic headaches Bursitis of left hip Scoliosis Chronic back pain Corneal pigmentation of both eyes MRSA infection Anemia Vertigo Tinnitus Recurrent sinusitis History of recurrent ear infection Hearing loss Partial blindness Interstitial cystitis Painful menstrual periods Ovarian cyst Irregular periods/menstrual cycles History of heavy periods Endometriosis Abnormal Pap smear of cervix Kidney infection (2002) Frequent UTI BRCA negative PUD (peptic ulcer disease) IBS (irritable bowel syndrome) Hemorrhoids GI bleeding GERD (gastroesophageal reflux disease) Gastroparesis Gastric ulcer Anal fissure (01/24/12) History of tilt table evaluation (05/02/15) Vaginal delivery Asthma with allergic rhinitis Fibromyalgia Nondiabetic gastroparesis (01/04/16) Irritable bowel syndrome with diarrhea (01/04/16) Chronic interstitial cystitis (01/04/16) History of partial hysterectomy (01/04/16) History of fracture of hip (01/04/16) History of gastrointestinal hemorrhage (01/04/16) Surgical History History of colonoscopy (01/10/15) History of endoscopy (01/10/15) History of endoscopy (05/04/07) History of rectal surgery (01/24/12) Anesthesia complication History of hip surgery (12/13/92) Status post laparoscopy (05/04/07) History of bladder surgery (02/2001) Status post laparoscopy (1999) History of third molar tooth extraction (1997) History of bladder suspension procedure (06/14/13) Status post dilation and curettage (10/2009) Status post laparoscopic cholecystectomy (03/11/06) Status post appendectomy (08/1996) Status post hysterectomy (05/07/10) Family History Brother Age: 47 Back pain Brother Age: 46 Migraines Child Age: 20 Mental health problem Child Age: 19 Asperger syndrome Father Age: 70 Anger Mother Age: 64 Hypothyroidism Anxiety Stroke Sister Age: 47 Thyroid cancer Brain tumor Grandfather No problems noted. Grandmother Brain tumor Grandfather No problems noted. Grandmother Ovarian cancer Social History marital status: number of children: 2 household members: children lives independently: Yes caregiver/support person: Yes housing: house Smoking Status: Never smoker second hand exposure: No alcohol intake: current substance use type: does not use Smoking Status: Never smoker alcohol intake frequency: a few times a week Substance Use Type: does not use Exam Initial Vital Signs Initial Vital Signs: Vital Signs Temperature 97.9 F 10/04/23 07:38 Pulse Rate 83 10/04/23 07:38 Respiratory Rate 18 10/04/23 07:38 Blood Pressure 139/65 10/04/23 07:38 Pulse Oximetry 99 10/04/23 07:38 Oxygen Delivery Method Room Air 10/04/23 07:38 Resp Effort & Inspection: normal respiratory effort Cardio Rate: regular rate GI Other: Pain in the right groin area Extrem Other: Discomfort with palpation of the right hemipelvis, right groin area, lateral right proximal femur and right SI joint. Course Orders Ordered: ED Orders 10/04/23 07:44 XR hip w pel if done RT 2V Stat Discontinued Medications Ketorolac Tromethamine (Ketorolac 30 Mg/Ml Vial) 30 mg IM NOW ONE Stop: 10/04/23 08:31 Last Admin: 10/04/23 08:34 Dose: 30 mg Documented By: AMV Vital Signs Vital signs: Vital Signs - 8 hr 10/04/23 07:38 Temperature 97.9 F Pulse Rate 83 Respiratory Rate 18 Blood Pressure 139/65 Pulse Oximetry 99 Oxygen Delivery Method Room Air Medical Decision Making Imaging Data Extremity x-ray #1: Radiologist's Impression: PROCEDURE: XR HIP W PEL IF DONE RT 2V INDICATIONS: R hip pain after fall TECHNIQUE: AP pelvis with lateral view(s) of the right hip(s). COMPARISON: None. FINDINGS: Bones: No fractures or dislocations. Pelvic ring appears intact. No suspicious bony lesions. Surgical screw overlies the left femoral head. Soft tissues: The visualized bowel gas pattern is normal. No suspicious soft tissue calcifications. IMPRESSION: No visualized acute fracture or dislocation. However, if clinical concern and/or pain persist, short interval imaging followup in 7-10 days is recommended, as occult injury cannot be definitively excluded. MDM Narrative Medical decision making narrative: Patient's fall was greater than 1 week ago. She has been able to put some weight on her right leg but it has been uncomfortable for her. X-ray today does not show any fractures. No other injuries from the event. This was a mechanical fall. She has been trying topical medications without improvement. She was given Toradol here in the ER. Was sent home with a prescription for tramadol to use as needed. She has other medications at home that she uses for her aches and pains. She states she does try to stay away from Tylenol because she has overdosed on Tylenol in the past. No indication for admission to the hospital. Patient discharged with return precautions. Discharge Plan Departure Patient Disposition: Home Clinical Impression: Acute pain of right hip Instructions: DI for Hip Pain Activity Restrictions/Additional Instructions: There were no fractures noted on the x-ray so you can walk as tolerated. It is important that you get up and tried to move as much as possible. Continue to take all of your medications as directed. Contact your primary doctor for a follow-up Prescriptions: New tramadol 50 mg tablet 50 mg PO Q8H PRN (Reason: pain) Qty: 7 0RF No Action cholecalciferol (vitamin D3) 100 mcg (4,000 unit) capsule 2,000 unit PO BID Qty: 180 1RF magnesium oxide 500 mg tablet See Rx Instructions .ROUTE .COMPLEX Qty: 180 0RF Dose Instruction: TAKE 2 TABLETS BY MOUTH AT BEDTIME Rx Instructions: TAKE 2 TABLETS BY MOUTH AT BEDTIME levalbuterol HCl 1.25 mg/3 mL solution for nebulization See Rx Instructions .ROUTE .COMPLEX Qty: 300 5RF Dose Instruction: INHALE THE CONTENTS OF 1 VIAL VIA NEBULIZER EVERY 4 HOURS NEEDED FOR WHEEZING Rx Instructions: INHALE THE CONTENTS OF 1 VIAL VIA NEBULIZER EVERY 4 HOURS NEEDED FOR WHEE ZING nystatin 100,000 unit/gram powder 1 applic topical TID Qty: 60 3RF Patient Comments: Apply under left breast. lidocaine 5 % ointment See Rx Instructions .ROUTE .COMPLEX Qty: 49.222 2RF Dose Instruction: APPLY TOPICALLY TWICE DAILY NEEDED FOR PAIN Rx Instructions: APPLY TOPICALLY TWICE DAILY NEEDED FOR PAIN albuterol sulfate [ProAir HFA] 90 mcg/actuation HFA aerosol inhaler 2 puff INHALATION Q4-6H PRN (Reason: Shortness Of Breath) Qty: 8.5 1RF melatonin 3 mg tablet extended release See Rx Instructions PO .COMPLEX Qty: 90 0RF Rx Instructions: Take 1 tab PO at bedtime. Emgality Syringe 120 mg/mL syringe 120 mg SUBCUT QMONTH (DME) mechanical lift chair See Rx Instructions .Route .MEDSUPPLY Qty: 1 0RF Rx Instructions: As directed, pt 359 pounds. (DME) electronic blood pressure cuff See Rx Instructions .Route .MEDSUPPLY Qty: 1 0RF Rx Instructions: As directed, to be used daily to monitor blood pressure nystatin 100,000 unit/gram ointment See Rx Instructions .ROUTE .COMPLEX Qty: 30 0RF Dose Instruction: APPLY TOPICALLY TWICE A DAY Rx Instructions: APPLY TOPICALLY TWICE A DAY epinephrine 0.3 mg/0.3 mL auto-injector See Rx Instructions .ROUTE .COMPLEX Qty: 2 0RF Dose Instruction: INJECT 0.3 MLS (0.3 MG TOTAL) INTO THE MUSCLE ONCE NEEDED Rx Instructions: INJECT 0.3 MLS (0.3 MG TOTAL) INTO THE MUSCLE ONCE NEEDED (DME) elevated toilet seat See Rx Instructions .Route .MEDSUPPLY Qty: 1 0RF Rx Instructions: As directed Breo Ellipta 200-25 mcg/dose blister with device See Rx Instructions .ROUTE .COMPLEX Qty: 60 11RF Dose Instruction: INHALE ONE INHALATION EVERY NIGHT AT BEDTIME Rx Instructions: INHALE ONE INHALATION EVERY NIGHT AT BEDTIME Incruse Ellipta 62.5 mcg/actuation blister with device See Rx Instructions .ROUTE .COMPLEX Qty: 60 3RF Dose Instruction: 1 INHALATION BY MOUTH EVERY DAY Rx Instructions: 1 INHALATION BY MOUTH EVERY DAY Trintellix 20 mg tablet 20 mg PO DAILY Qty: 90 1RF lamotrigine [Lamictal] 200 mg tablet 200 mg PO DAILY Qty: 90 1RF Patient Comments: Patient states she needs to take the brand name, blue triangle pill. Off brand can cause suicidal ideation. gabapentin 300 mg capsule See Rx Instructions .ROUTE .COMPLEX MDD 1500mg Qty: 270 1RF Patient Comments: 300mg taken mid day in the afternoon around 1500, 600mg in the am, and 600mg at bedtime Rx Instructions: Take 300 mg (1 cap) PO QAM and 300 mg (2 caps) PO 2 hours before sleep. hydroxyzine HCl 50 mg tablet 50 mg PO BID Qty: 180 1RF montelukast 10 mg tablet 10 mg PO ONCE PM Qty: 90 3RF omeprazole 40 mg capsule,delayed release(DR/EC) 40 mg PO BID Qty: 180 3RF diazepam 5 mg tablet 5 mg PO TID Qty: 90 5RF ondansetron 8 mg tablet,disintegrating 8 mg PO Q8H PRN (Reason: for nausea/vomiting) Qty: 90 0RF baclofen 20 mg tablet 40 mg PO QPM Qty: 60 0RF prazosin 2 mg capsule 4 mg PO BEDTIME Qty: 180 1RF (DME) bariatric semi electric bed See Rx Instructions .Route .MEDSUPPLY Qty: 1 0RF Rx Instructions: Pt Wt 359 lbs. Requires bariatric semi electric hospital bed. Length of need 99 months. Pt with nocturnal hypoxemia, requires oxygen at night with head of bed elevated 30 degrees to maintain adequate oxygen saturations. lisinopril 40 mg tablet 40 mg PO DAILY Qty: 90 3RF Excedrin Extra Strength 250-250-65 mg tablet 1 tab PO Q4-6H PRN (Reason: Migraine Headache) Dupixent Syringe 300 mg/2 mL syringe 300 mg SUBCUT Q4W Patient Comments: [NO ORIGINAL SIG] Corlanor 5 mg tablet 5 mg PO BID Rx Instructions: must administer with a meal/food Referrals: Rolanda Raymond MD [Primary Care Provider] - Stand Alone Forms: Patient Portal/API
[2023-10-04] MEDS: KETOROLAC 30 MG/ML VIAL IM (08:34)
--- NOTE | 2023-10-04 08:38 | PC.NURSE ---
Pt states that she needs [employer] called for ride home and that the ER always gives her a taxi voucher. Pt was told that we could do that but that she shouldn't depend on the ER for taxi vouchers in the future
== END 2023-10-04 08:55 | disposition home or self-care (01) ==
LOC: ED 07:51
PROVIDERS: Emergency Provider Emergency Medicine; PCP Family Medicine
DX: M25.551 Pain in right hip (principal); W18.30XD Fall on same level, unspecified, subsequent encounter; Z79.899 Other long term (current) drug therapy
CPT/HCPCS: 73502; 96372; 99283; J1885

== ENCOUNTER → 2023-11-24 12:23 | Outpatient (CLI) | payer MEDICARE, MEDICAID, SELFPAY ==
[2023-07-02 10:19] VITALS: BMI 47.5
--- NOTE | 2023-11-24 12:24 | DI.CT.S_ITS ---
PROCEDURE: CT LUMBAR SPINE WO CON INDICATIONS: pain TECHNIQUE: Noncontrast 3 mm thick sections acquired from the T12 level to the sacrum. Sagittal and coronal reformats were constructed. For radiation dose reduction, the following was used: automated exposure control. COMPARISON: [facility], CR, XR THORACIC SPINE 3V, 08/07/2023, 9:15. FINDINGS: Image quality: Excellent. Bones: There is mild levoscoliosis of lumbar spine with apex at L2 level.. No acute vertebral body compression fractures. No suspicious lytic or blastic bony lesions. No pars defects. T12-L1: No significant disc bulge, canal stenosis or neural foraminal narrowing. L1-L2: Degenerative endplate changes are seen. Bilateral facet arthrosis is seen. No significant disc bulge, central canal stenosis of bilateral neural foraminal narrowing. L2-L3: Loss of disc height and degenerative endplate changes are seen. Schmorl's no involving inferior endplate of L2 is seen. There is broad-based disc bulge and bilateral facet arthrosis with mild central canal stenosis and [id number] bilateral neural foraminal narrowing. L3-L4: Loss of disc height and degenerative endplate changes are seen. Broad-based disc bulge and bilateral facet arthrosis is seen causing moderate central canal stenosis and bilateral neural foraminal narrowing. L4-L5: Loss of disc height and degenerative endplate changes are noted. Broad-based disc bulge and bilateral facet arthrosis is seen with mild central canal stenosis and right worse than left bilateral neural foraminal narrowing. L5-S1: Degenerative endplate changes are seen. Broad-based disc bulge and bilateral facet arthrosis with mild central canal stenosis, no significant neural foraminal narrowing. Soft tissues: No retroperitoneal masses or hematomas. Visualized aorta is normal in caliber. IMPRESSION: 1. Mild levoscoliosis of lumbar spine with apex at L2 level. No acute compression fracture or spondylolisthesis. 2. [id number] degenerative disc disease throughout lumbar spine causing various degrees of central canal stenosis and bilateral neural foraminal narrowing more notably at L3-4 level as above. Dictated by: Grabiel Ibarra M.D. on 11/24/2023 at 22:47 Approved by: Grabiel Ibarra M.D. on 11/24/2023 at 22:51
== END ==
PROVIDERS: PCP Family Medicine; Referring Provider Family Medicine; Visit Provider Family Medicine
DX: M51.36 Other intervertebral disc degeneration, lumbar region (principal); M51.37 Other intervertebral disc degeneration, lumbosacral region; M48.061 Spinal stenosis, lumbar region without neurogenic claudication; M48.07 Spinal stenosis, lumbosacral region; M47.816 Spondylosis without myelopathy or radiculopathy, lumbar region; M47.817 Spondylosis without myelopathy or radiculopathy, lumbosacral region; M41.9 Scoliosis, unspecified; M54.50 Low back pain, unspecified; G89.29 Other chronic pain
CPT/HCPCS: 72131

== ENCOUNTER 2024-04-01 05:54 | Emergency (ER) | payer MEDICARE, MEDICAID, SELFPAY ==
[2023-07-02 10:19] VITALS: BMI 47.5
[2024-04-01] VITALS (7 sets, daily range): BP systolic 104–130; BP diastolic 52–80; PULSE 63–87; RESP 12–20; TEMP 36.8; O2SAT 93–98
--- NOTE | 2024-04-01 05:54 | ED_ITS ---
HPI - Chest Pain General Chief Complaint: Chest Pain Stated Complaint: hip pain/chest burning Time Seen by Provider: 04/01/24 05:58 Related Data Home Medications Medication Instructions Recorded Confirmed chuwjtr-txgnmhtsuapiz-zwqnngiu 250 1 tab PO Q4-6H PRN Migraine 09/18/22 10/29/23 mg-250 mg-65 mg tablet (Excedrin Headache Extra Strength) galcanezumab-gnlm 120 mg/mL 120 mg SUBCUT QMONTH 11/28/22 10/29/23 subcutaneous syringe (Emgality) ivabradine 5 mg tablet (Corlanor) 5 mg PO BID 07/04/23 10/29/23 Previous Rx's Medication Instructions Recorded magnesium oxide See Rx Instructions .Route 12/22/20 .COMPLEX #180 tabs levalbuterol HCl 1.25 mg/3 mL See Rx Instructions .Route 04/09/21 solution for nebulization .COMPLEX #300 mL nystatin 100,000 unit/gram topical 1 applic topical TID #60 grams 06/04/21 powder cholecalciferol (vitamin D3) 100 2,000 unit PO BID #180 caps 11/26/21 mcg (4,000 unit) capsule albuterol sulfate 90 mcg/actuation 2 puff inhalation Q4-6H PRN 03/19/22 aerosol inhaler (ProAir HFA) Shortness Of Breath #8.5 grams melatonin 3 mg tablet,extended See Rx Instructions PO .COMPLEX 07/05/22 release #90 tabs electronic blood pressure cuff #1 ea 12/09/22 mechanical lift chair #1 ea 12/09/22 nystatin 100,000 unit/gram topical See Rx Instructions .Route 01/15/23 ointment .COMPLEX #30 grams epinephrine 0.3 mg/0.3 mL See Rx Instructions .Route 01/20/23 injection, auto-injector .COMPLEX #2 ea elevated toilet seat #1 ea 02/10/23 montelukast 10 mg tablet 10 mg PO ONCE PM #90 tabs 07/08/23 lisinopril 40 mg tablet 40 mg PO DAILY #90 tabs 09/26/23 tramadol 50 mg tablet 50 mg PO Q8H PRN pain #7 tabs 10/04/23 lidocaine 5 % topical ointment 1 applic topical BID PRN for pain 12/04/23 #49.222 grams diazepam 5 mg tablet 5 mg PO TID #90 tabs 12/18/23 Lamictal 200 mg tablet 200 mg PO DAILY #90 tabs 01/05/24 (lamotrigine) pregabalin 150 mg capsule (Lyrica) 150 mg PO BID #60 caps 01/05/24 dupilumab 300 mg/2 mL subcutaneous 300 mg (2 mL) SUBCUT Q2W #4 mL 01/19/24 pen injector hydroxyzine HCl 50 mg tablet 50 mg PO BID #180 tabs 02/19/24 fluticasone furoate 200 1 inh PO ONCE PM #120 ea 02/26/24 mcg-vilanterol 25 mcg/dose inhalation powder (Breo Ellipta) vortioxetine 20 mg tablet 20 mg PO DAILY #90 tabs 03/01/24 (Trintellix) baclofen 20 mg tablet 40 mg (2 x 20 mg) PO QPM #60 tabs 03/10/24 ondansetron 8 mg disintegrating 8 mg PO Q8H PRN for 03/10/24 tablet nausea/vomiting #90 tabs lactulose 20 gram/30 mL oral 40 g (60 mL) PO BID #4,200 mL 03/12/24 solution omeprazole 40 mg capsule,delayed 40 mg PO BID #180 caps 03/18/24 release prazosin 2 mg capsule 4 mg (2 x 2 mg) PO BEDTIME #180 03/18/24 caps umeclidinium 62.5 mcg/actuation 1 inh PO DAILY #90 ea 03/18/24 blister powder for inhalation (Incruse Ellipta) Allergies Allergy/AdvReac Type Severity Reaction Status Date / Time bupropion [BUPROPION] Allergy Mild facial rash Verified 10/29/23 11:15 hydrocodone [HYDROCODONE] Allergy Mild rash Verified 10/29/23 11:15 iodine [IODINE] Allergy Mild edema Verified 10/29/23 11:15 lithium AdvReac Severe suicidal Verified 10/29/23 11:15 thoughts lorazepam AdvReac Severe worsens Verified 10/29/23 11:15 panic trazodone AdvReac Severe suicidal Verified 10/29/23 11:15 thoughts diphenhydramine AdvReac Intermediate panic Verified 10/29/23 11:15 [From Benadryl] attacks Patient History Medical History Lumbar radiculopathy Cervical radiculopathy Low back pain Thoracic back pain Shoulder pain Neck pain Chronic migraine [place] use Suicide attempt by acetaminophen overdose Aspirin overdose Essential (primary) hypertension Tachycardia Rheumatoid arthritis Chronic cough Asthma Hayfever Agoraphobia Panic attacks PTSD (post-traumatic stress disorder) Depression Anxiety Migraines Chronic headaches Bursitis of left hip Scoliosis Chronic back pain Corneal pigmentation of both eyes MRSA infection Anemia Vertigo Tinnitus Recurrent sinusitis History of recurrent ear infection Hearing loss Partial blindness Interstitial cystitis Painful menstrual periods Ovarian cyst Irregular periods/menstrual cycles History of heavy periods Endometriosis Abnormal Pap smear of cervix Kidney infection (2002) Frequent UTI BRCA negative PUD (peptic ulcer disease) IBS (irritable bowel syndrome) Hemorrhoids GI bleeding GERD (gastroesophageal reflux disease) Gastroparesis Gastric ulcer Anal fissure (01/24/12) History of tilt table evaluation (05/02/15) Vaginal delivery Asthma with allergic rhinitis Fibromyalgia Nondiabetic gastroparesis (01/04/16) Irritable bowel syndrome with diarrhea (01/04/16) Chronic interstitial cystitis (01/04/16) History of partial hysterectomy (01/04/16) History of fracture of hip (01/04/16) History of gastrointestinal hemorrhage (01/04/16) Surgical History History of colonoscopy (01/10/15) History of endoscopy (01/10/15) History of endoscopy (05/04/07) History of rectal surgery (01/24/12) Anesthesia complication History of hip surgery (12/13/92) Status post laparoscopy (05/04/07) History of bladder surgery (02/2001) Status post laparoscopy (1999) History of third molar tooth extraction (1997) History of bladder suspension procedure (06/14/13) Status post dilation and curettage (10/2009) Status post laparoscopic cholecystectomy (03/11/06) Status post appendectomy (08/1996) Status post hysterectomy (05/07/10) Family History Brother Age: 48 Back pain Brother Age: 47 Migraines Child Age: 21 Mental health problem Child Age: 20 Asperger syndrome Father Age: 71 Anger Mother Age: 65 Hypothyroidism Anxiety Stroke Sister Age: 48 Thyroid cancer Brain tumor Grandfather No problems noted. Grandmother Brain tumor Grandfather No problems noted. Grandmother Ovarian cancer Social History marital status: number of children: 2 household members: children lives independently: Yes caregiver/support person: Yes housing: house Smoking Status: Never smoker second hand exposure: No alcohol intake: current substance use type: does not use Smoking Status: Never smoker alcohol intake frequency: a few times a week Substance Use Type: does not use Exam Initial Vital Signs Initial Vital Signs: Vital Signs Temperature 98.2 F 04/01/24 06:00 Pulse Rate 87 04/01/24 06:00 Respiratory Rate 18 04/01/24 06:00 Blood Pressure 130/80 04/01/24 06:00 Pulse Oximetry 97 04/01/24 06:00 Oxygen Delivery Method Room Air 04/01/24 06:00 Course Orders Ordered: ED Orders 04/01/24 06:00 XR chest 1V Stat Complete Blood Count AUTO DIFF Stat Comprehensive Metabolic Panel Stat Lipase Stat Troponin & CK Cardiac Panel Stat EKG-12 Lead Stat Sodium Chloride (Normal Saline 0.9%) 1,000 mls @ 150 mls/hr IV CONT LAILA Vital Signs Vital signs: Vital Signs - 8 hr 04/01/24 06:00 Temperature 98.2 F Pulse Rate 87 Respiratory Rate 18 Blood Pressure 130/80 Pulse Oximetry 97 Oxygen Delivery Method Room Air Discharge Plan Departure Prescriptions: No Action cholecalciferol (vitamin D3) 100 mcg (4,000 unit) capsule 2,000 unit PO BID Qty: 180 1RF Trintellix 20 mg tablet 20 mg PO DAILY Qty: 90 3RF lamotrigine [Lamictal] 200 mg tablet 200 mg PO DAILY Qty: 90 3RF Patient Comments: Patient states she needs to take the brand name, blue triangle pill. Off brand can cause suicidal ideation. magnesium oxide 500 mg tablet See Rx Instructions .ROUTE .COMPLEX Qty: 180 0RF Dose Instruction: TAKE 2 TABLETS BY MOUTH AT BEDTIME Rx Instructions: TAKE 2 TABLETS BY MOUTH AT BEDTIME levalbuterol HCl 1.25 mg/3 mL solution for nebulization See Rx Instructions .ROUTE .COMPLEX Qty: 300 5RF Dose Instruction: INHALE THE CONTENTS OF 1 VIAL VIA NEBULIZER EVERY 4 HOURS NEEDED FOR WHEEZING Rx Instructions: INHALE THE CONTENTS OF 1 VIAL VIA NEBULIZER EVERY 4 HOURS NEEDED FOR WHEEZING nystatin 100,000 unit/gram powder 1 applic topical TID Qty: 60 3RF Patient Comments: Apply under left breast. albuterol sulfate [ProAir HFA] 90 mcg/actuation HFA aerosol inhaler 2 puff INHALATION Q4-6H PRN (Reason: Shortness Of Breath) Qty: 8.5 1RF melatonin 3 mg tablet extended release See Rx Instructions PO .COMPLEX Qty: 90 0RF Rx Instructions: Take 1 tab PO at bedtime. Emgality Syringe 120 mg/mL syringe 120 mg SUBCUT QMONTH (DME) mechanical lift chair See Rx Instructions .Route .MEDSUPPLY Qty: 1 0RF Rx Instructions: As directed, pt 359 pounds. (DME) electronic blood pressure cuff See Rx Instructions .Route .MEDSUPPLY Qty: 1 0RF Rx Instructions: As directed, to be used daily to monitor blood pressure nystatin 100,000 unit/gram ointment See Rx Instructions .ROUTE .COMPLEX Qty: 30 0RF Dose Instruction: APPLY TOPICALLY TWICE A DAY Rx Instructions: APPLY TOPICALLY TWICE A DAY epinephrine 0.3 mg/0.3 mL auto-injector See Rx Instructions .ROUTE .COMPLEX Qty: 2 0RF Dose Instruction: INJECT 0.3 MLS (0.3 MG TOTAL) INTO THE MUSCLE ONCE NEEDED Rx Instructions: INJECT 0.3 MLS (0.3 MG TOTAL) INTO THE MUSCLE ONCE NEEDED (DME) elevated toilet seat See Rx Instructions .Route .MEDSUPPLY Qty: 1 0RF Rx Instructions: As directed montelukast 10 mg tablet 10 mg PO ONCE PM Qty: 90 3RF lisinopril 40 mg tablet 40 mg PO DAILY Qty: 90 3RF lidocaine 5 % ointment 1 applic topical BID PRN (Reason: for pain) Qty: 49.222 1RF diazepam 5 mg tablet 5 mg PO TID Qty: 90 5RF pregabalin [Lyrica] 150 mg capsule 150 mg PO BID Qty: 60 2RF dupilumab 300 mg/2 mL pen injector 300 mg SUBCUT Q2W Qty: 4 3RF hydroxyzine HCl 50 mg tablet 50 mg PO BID Qty: 180 1RF Breo Ellipta 200-25 mcg/dose blister with device 1 inh PO ONCE PM Qty: 120 5RF baclofen 20 mg tablet 40 mg PO QPM Qty: 60 0RF ondansetron 8 mg tablet,disintegrating 8 mg PO Q8H PRN (Reason: for nausea/vomiting) Qty: 90 0RF lactulose 20 gram/30 mL solution 40 g PO BID Qty: 4200 1RF Incruse Ellipta 62.5 mcg/actuation blister with device 1 inh PO DAILY Qty: 90 3RF omeprazole 40 mg capsule,delayed release(DR/EC) 40 mg PO BID Qty: 180 3RF prazosin 2 mg capsule 4 mg PO BEDTIME Qty: 180 1RF tramadol 50 mg tablet 50 mg PO Q8H PRN (Reason: pain) Qty: 7 0RF Excedrin Extra Strength 250-250-65 mg tablet 1 tab PO Q4-6H PRN (Reason: Migraine Headache) Corlanor 5 mg tablet 5 mg PO BID Rx Instructions: must administer with a meal/food Referrals: Rolanda Raymond MD [Primary Care Provider] -
--- NOTE | 2024-04-01 06:00 | DI.RAD.S_ITS ---
PROCEDURE: XR CHEST 1V INDICATIONS: chest pain TECHNIQUE: One view of the chest was acquired. COMPARISON: [facility], , CHEST 2 VIEW, 08/18/2013, 16:26. FINDINGS: Surgical changes and devices: None. Lungs and pleura: Patient is rotated towards the left. Given rotation, no definite consolidation is seen. No pleural effusions or pneumothorax. Mediastinum: Mediastinal contours appear normal. Heart size is normal. Bones and chest wall: No suspicious bony lesions. Overlying soft tissues appear unremarkable. IMPRESSION: Evaluation is compromised by patient rotation. Given positioning, no acute abnormality is seen in the chest. Consider repeat radiographs if there is continued clinical concern. There is no significant discrepancy when compared to the overnight preliminary report. Approved by: Alfredito Ahmadi M.D. on 04/01/2024 at 8:25
--- NOTE | 2024-04-01 06:00 | EKG_ITS ---
[address] [address] Test Date: 2024-04-01 Pat Name: Dorinda Harper Department: Room: Gender: Female Wilton Weaver: : 1980 Requested By: Order Number: [id number] Reading MD: Royal Flores Measurements Intervals Girdler Rate: 76 P: 37 VA: 186 QRS: 90 QRSD: 82 T: 23 QT: 434 QTc: 488 Interpretive Statements Normal sinus rhythm Rightward axis Low voltage QRS Cannot rule out Anterior infarct , age undetermined Electronically Signed On 04-01-2024 7:35:50 PDT by Royal Flores
[2024-04-01] MEDS: SODIUM CHLORIDE 0.9% 1,000 ML 150 ML IV (06:12)
--- NOTE | 2024-04-01 06:13 | ED_ITS ---
HPI - Chest Pain <Camden Harmon MD - Last Filed: 04/01/24 13:35> General Chief Complaint: Chest Pain Stated Complaint: hip pain/chest burning Time Seen by Provider: 04/01/24 05:58 Source: EMS Mode of arrival: EMS Limitations: no limitations History of Present Illness HPI narrative: 44-year-old female with history of chronic right hip area discomfort, history of fibromyalgia, complains of worsening right hip pain as her primary reason for calling the ambulance this morning, also then said that she had 1 hour duration of chest pain. No history of known cardiac disease. No fevers chills cough shortness of breath. She reports injury to the right hip in September, no surgery, no specific diagnosis known to patient, was seen a week later after injury for this problem in September, received Toradol which seemed to be helpful at that time. No new activities lifting or trauma. She says that she tries lidocaine patches, does not seem to try anything else for her hip pain. She denies pain to her thigh knee or calf, no calf pain or swelling symptoms. No history of known clots to legs or lungs. Related Data Home Medications Medication Instructions Recorded Confirmed [id number] 250 1 tab PO Q4-6H PRN Migraine 09/18/22 10/29/23 mg-250 mg-65 mg tablet (Excedrin Headache Extra Strength) galcanezumab-gnlm 120 mg/mL 120 mg SUBCUT QMONTH 11/28/22 10/29/23 subcutaneous syringe (Emgality) ivabradine 5 mg tablet (Corlanor) 5 mg PO BID 07/04/23 10/29/23 Previous Rx's Medication Instructions Recorded magnesium oxide See Rx Instructions .Route 12/22/20 .COMPLEX #180 tabs levalbuterol HCl 1.25 mg/3 mL See Rx Instructions .Route 04/09/21 solution for nebulization .COMPLEX #300 mL nystatin 100,000 unit/gram topical 1 applic topical TID #60 grams 06/04/21 powder cholecalciferol (vitamin D3) 100 2,000 unit PO BID #180 caps 11/26/21 mcg (4,000 unit) capsule albuterol sulfate 90 mcg/actuation 2 puff inhalation Q4-6H PRN 03/19/22 aerosol inhaler (ProAir HFA) Shortness Of Breath #8.5 grams melatonin 3 mg tablet,extended See Rx Instructions PO .COMPLEX 07/05/22 release #90 tabs electronic blood pressure cuff #1 ea 12/09/22 mechanical lift chair #1 ea 12/09/22 nystatin 100,000 unit/gram topical See Rx Instructions .Route 01/15/23 ointment .COMPLEX #30 grams epinephrine 0.3 mg/0.3 mL See Rx Instructions .Route 01/20/23 injection, auto-injector .COMPLEX #2 ea elevated toilet seat #1 ea 02/10/23 montelukast 10 mg tablet 10 mg PO ONCE PM #90 tabs 07/08/23 lisinopril 40 mg tablet 40 mg PO DAILY #90 tabs 09/26/23 tramadol 50 mg tablet 50 mg PO Q8H PRN pain #7 tabs 10/04/23 lidocaine 5 % topical ointment 1 applic topical BID PRN for pain 12/04/23 #49.222 grams diazepam 5 mg tablet 5 mg PO TID #90 tabs 12/18/23 Lamictal 200 mg tablet 200 mg PO DAILY #90 tabs 01/05/24 (lamotrigine) pregabalin 150 mg capsule (Lyrica) 150 mg PO BID #60 caps 01/05/24 dupilumab 300 mg/2 mL subcutaneous 300 mg (2 mL) SUBCUT Q2W #4 mL 01/19/24 pen injector hydroxyzine HCl 50 mg tablet 50 mg PO BID #180 tabs 02/19/24 fluticasone furoate 200 1 inh PO ONCE PM #120 ea 02/26/24 mcg-vilanterol 25 mcg/dose inhalation powder (Breo Ellipta) vortioxetine 20 mg tablet 20 mg PO DAILY #90 tabs 03/01/24 (Trintellix) baclofen 20 mg tablet 40 mg (2 x 20 mg) PO QPM #60 tabs 03/10/24 ondansetron 8 mg disintegrating 8 mg PO Q8H PRN for 03/10/24 tablet nausea/vomiting #90 tabs lactulose 20 gram/30 mL oral 40 g (60 mL) PO BID #4,200 mL 03/12/24 solution omeprazole 40 mg capsule,delayed 40 mg PO BID #180 caps 03/18/24 release prazosin 2 mg capsule 4 mg (2 x 2 mg) PO BEDTIME #180 03/18/24 caps umeclidinium 62.5 mcg/actuation 1 inh PO DAILY #90 ea 03/18/24 blister powder for inhalation (Incruse Ellipta) methylprednisolone 4 mg tablets in See Rx Instructions PO .COMPLEX 04/01/24 a dose pack (Medrol (Teofilo)) #21 ea Allergies Allergy/AdvReac Type Severity Reaction Status Date / Time bupropion [BUPROPION] Allergy Mild facial rash Verified 10/29/23 11:15 hydrocodone [HYDROCODONE] Allergy Mild rash Verified 10/29/23 11:15 iodine [IODINE] Allergy Mild edema Verified 10/29/23 11:15 lithium AdvReac Severe suicidal Verified 10/29/23 11:15 thoughts lorazepam AdvReac Severe worsens Verified 10/29/23 11:15 panic trazodone AdvReac Severe suicidal Verified 10/29/23 11:15 thoughts diphenhydramine AdvReac Intermediate panic Verified 10/29/23 11:15 [From Benadryl] attacks Review of Systems <Camden Harmon MD - Last Filed: 04/01/24 13:35> Review of Systems Narrative: per HPI Patient History <Camden Harmon MD - Last Filed: 04/01/24 13:35> Medical History Lumbar radiculopathy Cervical radiculopathy Low back pain Thoracic back pain Shoulder pain Neck pain Chronic migraine [place] use Suicide attempt by acetaminophen overdose Aspirin overdose Essential (primary) hypertension Tachycardia Rheumatoid arthritis Chronic cough Asthma Hayfever Agoraphobia Panic attacks PTSD (post-traumatic stress disorder) Depression Anxiety Migraines Chronic headaches Bursitis of left hip Scoliosis Chronic back pain Corneal pigmentation of both eyes MRSA infection Anemia Vertigo Tinnitus Recurrent sinusitis History of recurrent ear infection Hearing loss Partial blindness Interstitial cystitis Painful menstrual periods Ovarian cyst Irregular periods/menstrual cycles History of heavy periods Endometriosis Abnormal Pap smear of cervix Kidney infection (2002) Frequent UTI BRCA negative PUD (peptic ulcer disease) IBS (irritable bowel syndrome) Hemorrhoids GI bleeding GERD (gastroesophageal reflux disease) Gastroparesis Gastric ulcer Anal fissure (01/24/12) History of tilt table evaluation (05/02/15) Vaginal delivery Asthma with allergic rhinitis Fibromyalgia Nondiabetic gastroparesis (01/04/16) Irritable bowel syndrome with diarrhea (01/04/16) Chronic interstitial cystitis (01/04/16) History of partial hysterectomy (01/04/16) History of fracture of hip (01/04/16) History of gastrointestinal hemorrhage (01/04/16) Surgical History History of colonoscopy (01/10/15) History of endoscopy (01/10/15) History of endoscopy (05/04/07) History of rectal surgery (01/24/12) Anesthesia complication History of hip surgery (12/13/92) Status post laparoscopy (05/04/07) History of bladder surgery (02/2001) Status post laparoscopy (1999) History of third molar tooth extraction (1997) History of bladder suspension procedure (06/14/13) Status post dilation and curettage (10/2009) Status post laparoscopic cholecystectomy (03/11/06) Status post appendectomy (08/1996) Status post hysterectomy (05/07/10) Family History Brother Age: 48 Back pain Brother Age: 47 Migraines Child Age: 21 Mental health problem Child Age: 20 Asperger syndrome Father Age: 71 Anger Mother Age: 65 Hypothyroidism Anxiety Stroke Sister Age: 48 Thyroid cancer Brain tumor Grandfather No problems noted. Grandmother Brain tumor Grandfather No problems noted. Grandmother Ovarian cancer Social History marital status: number of children: 2 household members: children lives independently: Yes caregiver/support person: Yes housing: house Smoking Status: Never smoker second hand exposure: No alcohol intake: current substance use type: does not use Smoking Status: Never smoker alcohol intake frequency: a few times a week Substance Use Type: does not use Exam <Camden Harmon MD - Last Filed: 04/01/24 13:35> Narrative Exam Narrative: GENERAL: Obese, in mild distress due to right hip and groin pain. HEAD: Atraumatic. Normocephalic. EYES: Pupils equal round and reactive. Extraocular motions intact. No scleral icterus. No injection or drainage. ENT: Nose without bleeding, purulent drainage. Throat without erythema, tonsillar hypertrophy or exudate. Airway patent. NECK: Trachea midline. Non tender CARDIOVASCULAR: Regular rate and rhythm without murmurs, gallops, or rubs. RESPIRATORY: Clear to auscultation. Breath sounds equal bilaterally. No wheezes, rales, or rhonchi. GASTROINTESTINAL: Abdomen soft, non-tender, nondistended. EXTREMITIES: No edema or joint tenderness. BACK: Nontender without deformity or crepitance. No flank tenderness. NEURO: AOx3. SKIN: No rash or erythema of visible areas Initial Vital Signs Initial Vital Signs: Vital Signs Temperature 98.2 F 04/01/24 06:00 Pulse Rate 87 04/01/24 06:00 Respiratory Rate 18 04/01/24 06:00 Blood Pressure 130/80 04/01/24 06:00 Pulse Oximetry 97 04/01/24 06:00 Oxygen Delivery Method Room Air 04/01/24 06:00 <Abigail Huff MD - Last Filed: 04/05/24 03:23> Initial Vital Signs Initial Vital Signs: Vital Signs Temperature 98.2 F 04/01/24 06:00 Pulse Rate 87 04/01/24 06:00 Respiratory Rate 18 04/01/24 06:00 Blood Pressure 130/80 04/01/24 06:00 Pulse Oximetry 97 04/01/24 06:00 Oxygen Delivery Method Room Air 04/01/24 06:00 Course <Camden Harmon MD - Last Filed: 04/01/24 13:35> Orders Ordered: Discontinued Medications Al Hydrox/Mg Hydrox/Simethicone 20 ml/ Lidocaine HCl 15 ml 0 ml PO NOW ONE Stop: 04/01/24 06:18 Last Admin: 04/01/24 06:23 Dose: 35 ml Documented By: Dexamethasone (Dexamethasone 10 Mg/Ml Vial) 10 mg IV NOW ONE Stop: 04/01/24 07:37 Last Admin: 04/01/24 07:47 Dose: 10 mg Documented By: DOT Sodium Chloride (Normal Saline 0.9%) 1,000 mls @ 150 mls/hr IV CONT LAILA Last Infusion: 04/01/24 07:55 Dose: Infused Documented By: Admin: 04/01/24 06:12 Dose: 150 mls/hr Documented By: CHARLES Acetaminophen (Ofirmev) 1,000 mg in 100 mls @ 400 mls/hr IV NOW ONE Stop: 04/01/24 07:49 Last Infusion: 04/01/24 08:09 Dose: Infused Documented By: Admin: 04/01/24 07:46 Dose: 400 mls/hr Documented By: DOT Ketorolac Tromethamine (Ketorolac 30 Mg/Ml Vial) 15 mg IV NOW ONE Stop: 04/01/24 06:18 Last Admin: 04/01/24 06:23 Dose: 15 mg Documented By: Vital Signs Vital signs: Vital Signs - 8 hr 04/01/24 06:00 04/01/24 06:00 04/01/24 06:36 Temperature 98.2 F Pulse Rate 87 76 68 Respiratory Rate 18 20 Blood Pressure 130/80 Pulse Oximetry 97 96 93 Oxygen Delivery Method Room Air 04/01/24 06:37 04/01/24 06:37 04/01/24 07:00 Temperature Pulse Rate 73 67 Respiratory Rate 19 20 Blood Pressure 115/62 Pulse Oximetry 98 97 Oxygen Delivery Method 04/01/24 07:01 04/01/24 07:01 04/01/24 07:30 Temperature Pulse Rate 68 63 Respiratory Rate 16 12 Blood Pressure 109/52 L Pulse Oximetry 95 95 Oxygen Delivery Method 04/01/24 07:30 04/01/24 08:09 Temperature Pulse Rate 82 Respiratory Rate 17 Blood Pressure 104/55 L Pulse Oximetry 96 Oxygen Delivery Method Room Air <Abigail Huff MD - Last Filed: 04/05/24 03:23> Orders Ordered: Discontinued Medications Al Hydrox/Mg Hydrox/Simethicone 20 ml/ Lidocaine HCl 15 ml 0 ml PO NOW ONE Stop: 04/01/24 06:18 Last Admin: 04/01/24 06:23 Dose: 35 ml Documented By: Dexamethasone (Dexamethasone 10 Mg/Ml Vial) 10 mg IV NOW ONE Stop: 04/01/24 07:37 Last Admin: 04/01/24 07:47 Dose: 10 mg Documented By: DTO Sodium Chloride (Normal Saline 0.9%) 1,000 mls @ 150 mls/hr IV CONT LAILA Last Infusion: 04/01/24 07:55 Dose: Infused Documented By: Admin: 04/01/24 06:12 Dose: 150 mls/hr Documented By: CHARLES Acetaminophen (Ofirmev) 1,000 mg in 100 mls @ 400 mls/hr IV NOW ONE Stop: 04/01/24 07:49 Last Infusion: 04/01/24 08:09 Dose: Infused Documented By: Admin: 04/01/24 07:46 Dose: 400 mls/hr Documented By: DOT Ketorolac Tromethamine (Ketorolac 30 Mg/Ml Vial) 15 mg IV NOW ONE Stop: 04/01/24 06:18 Last Admin: 04/01/24 06:23 Dose: 15 mg Documented By: Vital Signs Vital signs: Vital Signs - 8 hr 04/01/24 06:00 04/01/24 06:00 04/01/24 06:36 Temperature 98.2 F Pulse Rate 87 76 68 Respiratory Rate 18 20 Blood Pressure 130/80 Pulse Oximetry 97 96 93 Oxygen Delivery Method Room Air 04/01/24 06:37 04/01/24 06:37 04/01/24 07:00 Temperature Pulse Rate 73 67 Respiratory Rate 19 20 Blood Pressure 115/62 Pulse Oximetry 98 97 Oxygen Delivery Method 04/01/24 07:01 04/01/24 07:01 04/01/24 07:30 Temperature Pulse Rate 68 63 Respiratory Rate 16 12 Blood Pressure 109/52 L Pulse Oximetry 95 95 Oxygen Delivery Method 04/01/24 07:30 04/01/24 08:09 Temperature Pulse Rate 82 Respiratory Rate 17 Blood Pressure 104/55 L Pulse Oximetry 96 Oxygen Delivery Method Room Air MDM - Chest Pain <Camden Harmon MD - Last Filed: 04/01/24 13:35> Lab Data Attestation: I reviewed the patient's lab results. 04/01/24 06:12 04/01/24 06:12 Labs: Lab Results 04/01/24 Range/Units 06:12 WBC 10.4 (4.5-11.0) X10^3/uL RBC 4.76 (4.0-5.2) X10^6/uL Hgb 13.1 (12.0-16.0) g/dL Hct 40.3 (36-46) % MCV 84.8 (80-100) fL MCH 27.4 (26-34) PG MCHC 32.4 (30-36) % RDW 14.2 (11.6-14.8) % Plt Count 329 (150-400) X10^3/uL Neut % (Auto) 54.9 (50-75) % Lymph % (Auto) 38.2 (25-40) % Sequoyah % (Auto) 4.2 (3-14) % Eos % (Auto) 2.0 (2-4) % Baso % (Auto) 0.7 (0-2) % Neut # (Auto) 5700 (9987-4821) /uL Lymph # (Auto) 4000 (6072-7494) /uL Sequoyah # (Auto) 400 (0-900) /uL Eos # (Auto) 200 (0-450) /uL Baso # (Auto) 100 (0-100) /uL Sodium 138 (137-145) mmol/L Potassium 4.3 (3.4-5.1) mmol/L Chloride 99 (98-107) mmol/L Carbon Dioxide 31 (22-32) mmol/L BUN 17 (7-17) mg/dL Creatinine 0.81 (0.52-1.04) mg/dL Estimated GFR > 60 (>60) mL/min BUN/Creatinine Ratio 21.0 (6-22) Glucose 126 H (70-100) mg/dL Calcium 9.3 (8.4-10.2) mg/dL Total Bilirubin 0.4 (0.2-1.3) mg/dL AST 20 (14-36) IU/L ALT 20 (<35) IU/L Alkaline Phosphatase 77 (38-126) U/L Total Creatine Kinase 34 (30-135) U/L Troponin I < 0.012 (0.01-0.034) ng/mL Total Protein 8.0 (6.3-8.2) g/dL Albumin 4.2 (3.5-5.0) g/dL Globulin 3.8 (1.7-4.1) g/dL Albumin/Globulin Ratio 1.1 (1.0-2.8) Lipase 41 (23-300) U/L Imaging Data Chest x-ray: My Impression: No obvious infiltrate fluid overload, portable study limited by poor inspiration Extremity x-ray #1: My Impression: Right hip x-ray without obvious fracture, no dislocation, no obvious pelvic fracture, old ORIF femoral neck pin noted on contralateral asymptomatic left side. ECG Data Attestation: I personally reviewed and interpreted this ECG as follows: Interpretation: Normal sinus rhythm with rate of 76, no obvious ST segment elevation or depression changes. Movement artifact noted. T-wave flattening in lead III. NC 186, QRS 82, QTC 488. MDM Narrative Medical decision making narrative: 44-year-old female with history of chronic right hip pain recently worsened without specific injury or new activities. Similar symptoms 05/2022 responsive to Toradol. Arrived by EMS, admitting to 1 hour duration of substernal chest pain en route, given aspirin by EMS. GI cocktail. Screening EKG without obvious ischemic changes, sinus rhythm. Troponin negative. Chest x-ray unremarkable. X-ray right hip without obvious fracture or dislocation. [id number], signed out to Dr Huff <Abigail Huff MD - Last Filed: 04/05/24 03:23> Lab Data Labs: Lab Results 04/01/24 Range/Units 06:12 WBC 10.4 (4.5-11.0) X10^3/uL RBC 4.76 (4.0-5.2) X10^6/uL Hgb 13.1 (12.0-16.0) g/dL Hct 40.3 (36-46) % MCV 84.8 (80-100) fL MCH 27.4 (26-34) PG MCHC 32.4 (30-36) % RDW 14.2 (11.6-14.8) % Plt Count 329 (150-400) X10^3/uL Neut % (Auto) 54.9 (50-75) % Lymph % (Auto) 38.2 (25-40) % Sequoyah % (Auto) 4.2 (3-14) % Eos % (Auto) 2.0 (2-4) % Baso % (Auto) 0.7 (0-2) % Neut # (Auto) 5700 (2236-2676) /uL Lymph # (Auto) 4000 (8278-6978) /uL Sequoyah # (Auto) 400 (0-900) /uL Eos # (Auto) 200 (0-450) /uL Baso # (Auto) 100 (0-100) /uL Sodium 138 (137-145) mmol/L Potassium 4.3 (3.4-5.1) mmol/L Chloride 99 (98-107) mmol/L Carbon Dioxide 31 (22-32) mmol/L BUN 17 (7-17) mg/dL Creatinine 0.81 (0.52-1.04) mg/dL Estimated GFR > 60 (>60) mL/min BUN/Creatinine Ratio 21.0 (6-22) Glucose 126 H (70-100) mg/dL Calcium 9.3 (8.4-10.2) mg/dL Total Bilirubin 0.4 (0.2-1.3) mg/dL AST 20 (14-36) IU/L ALT 20 (<35) IU/L Alkaline Phosphatase 77 (38-126) U/L Total Creatine Kinase 34 (30-135) U/L Troponin I < 0.012 (0.01-0.034) ng/mL Total Protein 8.0 (6.3-8.2) g/dL Albumin 4.2 (3.5-5.0) g/dL Globulin 3.8 (1.7-4.1) g/dL Albumin/Globulin Ratio 1.1 (1.0-2.8) Lipase 41 (23-300) U/L MDM Narrative Medical decision making narrative: 44-year-old female with history of chronic right hip pain recently worsened without specific injury or new activities. Similar symptoms 05/2022 responsive to Toradol. Arrived by EMS, admitting to 1 hour duration of substernal chest pain en route, given aspirin by EMS. GI cocktail. Screening EKG without obvious ischemic changes, sinus rhythm. Troponin negative. Chest x-ray unremarkable. X-ray right hip without obvious fracture or dislocation. [id number], signed out to Dr Refugio Huff -care of patient is signed out to me by Dr. Harmon. Independent review of patient and chart performed by myself. X-ray imaging shows no acute findings. Patient reports chronic pain of her right hip, currently denying any other complaints. Patient states that she takes Excedrin at home for migraines, but has not taken any ibuprofen or Tylenol at home due to history of overdose, stating ?I try not to take any medications ?. She states that she has gone through physical therapy for her hip without relief, but has not followed up with Orthopedic surgery. Patient counseled on results of labs and imaging, and recommended orthopedic follow up if patient continues to have pain in her hip. Patient was seen in September of 2023 for hip pain as well. Patient did not get significant relief with Toradol, Decadron and IV Tylenol ordered, however there is no indication for narcotics at this time. Discharge Plan Departure Patient Disposition: Home Clinical Impression: Acute pain of right hip Instructions: DI for Hip Pain Activity Restrictions/Additional Instructions: Your laboratory work and x-ray imaging today are normal. I recommend following up with your primary care doctor and pain management doctor if you continue to experience issues with your right hip. It may be of benefit to follow up with an orthopedic doctor if you continue to have these issues with your hip, a referral has been provided. Prescriptions: New methylprednisolone [Medrol (Teofilo)] 4 mg tablets,dose pack See Rx Instructions .ROUTE .COMPLEX Qty: 21 0RF Rx Instructions: orally per package directions No Action cholecalciferol (vitamin D3) 100 mcg (4,000 unit) capsule 2,000 unit PO BID Qty: 180 1RF Trintellix 20 mg tablet 20 mg PO DAILY Qty: 90 3RF lamotrigine [Lamictal] 200 mg tablet 200 mg PO DAILY Qty: 90 3RF Patient Comments: Patient states she needs to take the brand name, blue triangle pill. Off brand can cause suicidal ideation. magnesium oxide 500 mg tablet See Rx Instructions .ROUTE .COMPLEX Qty: 180 0RF Dose Instruction: TAKE 2 TABLETS BY MOUTH AT BEDTIME Rx Instructions: TAKE 2 TABLETS BY MOUTH AT BEDTIME levalbuterol HCl 1.25 mg/3 mL solution for nebulization See Rx Instructions .ROUTE .COMPLEX Qty: 300 5RF Dose Instruction: INHALE THE CONTENTS OF 1 VIAL VIA NEBULIZER EVERY 4 HOURS NEEDED FOR WHEEZING Rx Instructions: INHALE THE CONTENTS OF 1 VIAL VIA NEBULIZER EVERY 4 HOURS NEEDED FOR WHEEZING nystatin 100,000 unit/gram powder 1 applic topical TID Qty: 60 3RF Patient Comments: Apply under left breast. albuterol sulfate [ProAir HFA] 90 mcg/actuation HFA aerosol inhaler 2 puff INHALATION Q4-6H PRN (Reason: Shortness Of Breath) Qty: 8.5 1RF melatonin 3 mg tablet extended release See Rx Instructions PO .COMPLEX Qty: 90 0RF Rx Instructions: Take 1 tab PO at bedtime. Emgality Syringe 120 mg/mL syringe 120 mg SUBCUT QMONTH (DME) mechanical lift chair See Rx Instructions .Route .MEDSUPPLY Qty: 1 0RF Rx Instructions: As directed, pt 359 pounds. (DME) electronic blood pressure cuff See Rx Instructions .Route .MEDSUPPLY Qty: 1 0RF Rx Instructions: As directed, to be used daily to monitor blood pressure nystatin 100,000 unit/gram ointment See Rx Instructions .ROUTE .COMPLEX Qty: 30 0RF Dose Instruction: APPLY TOPICALLY TWICE A DAY Rx Instructions: APPLY TOPICALLY TWICE A DAY epinephrine 0.3 mg/0.3 mL auto-injector See Rx Instructions .ROUTE .COMPLEX Qty: 2 0RF Dose Instruction: INJECT 0.3 MLS (0.3 MG TOTAL) INTO THE MUSCLE ONCE NEEDED Rx Instructions: INJECT 0.3 MLS (0.3 MG TOTAL) INTO THE MUSCLE ONCE NEEDED (DME) elevated toilet seat See Rx Instructions .Route .MEDSUPPLY Qty: 1 0RF Rx Instructions: As directed montelukast 10 mg tablet 10 mg PO ONCE PM Qty: 90 3RF lisinopril 40 mg tablet 40 mg PO DAILY Qty: 90 3RF lidocaine 5 % ointment 1 applic topical BID PRN (Reason: for pain) Qty: 49.222 1RF diazepam 5 mg tablet 5 mg PO TID Qty: 90 5RF pregabalin [Lyrica] 150 mg capsule 150 mg PO BID Qty: 60 2RF dupilumab 300 mg/2 mL pen injector 300 mg SUBCUT Q2W Qty: 4 3RF hydroxyzine HCl 50 mg tablet 50 mg PO BID Qty: 180 1RF Breo Ellipta 200-25 mcg/dose blister with device 1 inh PO ONCE PM Qty: 120 5RF baclofen 20 mg tablet 40 mg PO QPM Qty: 60 0RF ondansetron 8 mg tablet,disintegrating 8 mg PO Q8H PRN (Reason: for nausea/vomiting) Qty: 90 0RF lactulose 20 gram/30 mL solution 40 g PO BID Qty: 4200 1RF Incruse Ellipta 62.5 mcg/actuation blister with device 1 inh PO DAILY Qty: 90 3RF omeprazole 40 mg capsule,delayed release(DR/EC) 40 mg PO BID Qty: 180 3RF prazosin 2 mg capsule 4 mg PO BEDTIME Qty: 180 1RF tramadol 50 mg tablet 50 mg PO Q8H PRN (Reason: pain) Qty: 7 0RF Excedrin Extra Strength 250-250-65 mg tablet 1 tab PO Q4-6H PRN (Reason: Migraine Headache) Corlanor 5 mg tablet 5 mg PO BID Rx Instructions: must administer with a meal/food Referrals: Caitlyn Jason MD [Physician] - Rolanda Raymond MD [Primary Care Provider] - Stand Alone Forms: Patient Portal/API
[2024-04-01 06:22] LABS: Add Manual Diff / Slide Review NO; Basophils Absolute Auto 100 /uL (0-100); Basophils Percent Auto 0.7 % (0-2); Eosinophils Absolute Auto 200 /uL (0-450); Hematocrit 40.3 % (36-46); Hemoglobin 13.1 g/dL (12.0-16.0); Lymphocytes Absolute Auto 4000 /uL (1100-4500); Lymphocytes Percent Auto 38.2 % (25-40); Mean Corpuscular HGB Conc 32.4 % (30-36); Mean Corpuscular Hemoglobin 27.4 PG (26-34); Mean Corpuscular Volume 84.8 fL (80-100); Monocytes Absolute Auto 400 /uL (0-900); Monocytes Percent Auto 4.2 % (3-14); Neutrophils Absolute Auto 5700 /uL (1500-7000); Neutrophils Percent Auto 54.9 % (50-75); Platelet Count 329 X10^3/uL (150-400); Red Blood Cell Count 4.76 X10^6/uL (4.0-5.2); Red Cell Distribution Width 14.2 % (11.6-14.8); White Blood Cell Count 10.4 X10^3/uL (4.5-11.0)
--- NOTE | 2024-04-01 06:22 | DI.RAD.S_ITS ---
PROCEDURE: XR HIP W PEL IF DONE RT 2V INDICATIONS: right hip/groin pain TECHNIQUE: AP pelvis with lateral view of the right hip. COMPARISON: [facility], , XR HIP W PEL IF DONE RT 2V, 10/04/2023, 7:45. FINDINGS: Bones: Postsurgical changes are seen from left proximal femoral fracture fixation with intact hardware. No acute fractures or dislocations. Pelvic ring appears intact. No suspicious bony lesions. Possible mild sclerosis surrounding the pubic symphysis versus artifact related to superimposed soft tissue structures. Soft tissues: The visualized bowel gas pattern is normal. No suspicious soft tissue calcifications. IMPRESSION: 1. No acute osseous abnormality. If there is continued clinical concern or persistent symptoms, repeat radiographs or cross-sectional imaging (e.g. CT, MRI) may be helpful for further evaluation. 2. Stable postsurgical changes in the left proximal femur. There is no significant discrepancy when compared to the overnight preliminary report. Approved by: Alfredito Ahmadi M.D. on 04/01/2024 at 8:33
[2024-04-01] MEDS: KETOROLAC 30 MG/ML VIAL 15 MG IV (06:23)
[2024-04-01] MEDS: MAG HYDROX/ALUMINUM/SIMETH SUS 20 ML, LIDOCAINE VISCOUS 2% 15 ML PO (06:23)
[2024-04-01 06:32] LABS: Alanine Aminotransferase 20 IU/L (<35); Albumin 4.2 g/dL (3.5-5.0); Albumin Globulin Ratio 1.1 (1.0-2.8); Alkaline Phosphatase 77 U/L (38-126); Aspartate Aminotransferase 20 IU/L (14-36); Bilirubin Total 0.4 mg/dL (0.2-1.3); Blood Urea Nitrogen 17 mg/dL (7-17); Calcium 9.3 mg/dL (8.4-10.2); Carbon Dioxide 31 mmol/L (22-32); Chloride 99 mmol/L (98-107); Creatine Kinase 34 U/L (30-135); Estimated Glomerular Filt Rate > 60 mL/min (>60); Globulin 3.8 g/dL (1.7-4.1); Glucose 126 mg/dL (70-100); HEMOLYSIS < 15 (0-50); Lipase 41 U/L (23-300); Potassium 4.3 mmol/L (3.4-5.1); Sodium 138 mmol/L (137-145)
[2024-04-01 06:44] LABS: Troponin I < 0.012 ng/mL (0.01-0.034)
[2024-04-01] MEDS: ACETAMINOPHEN IV 1,000 MG/100 ML VIAL 400 MG IV (07:46)
[2024-04-01] MEDS: DEXAMETHASONE 10 MG/ML VIAL IV (07:47)
== END 2024-04-01 08:12 | disposition home or self-care (01) ==
PROVIDERS: Emergency Medicine; Emergency Provider Emergency Medicine; PCP Family Medicine
DX: M25.551 Pain in right hip (principal); R07.9 Chest pain, unspecified; Z79.899 Other long term (current) drug therapy; E66.9 Obesity, unspecified
CPT/HCPCS: 36415; 71045; 73502; 80053; 82550; 83690; 84484; 85025; 93005; 96365; 96375; 99284; J0136; J1100; J1885

== ENCOUNTER 2024-09-13 16:10 | Emergency (ER) | payer MEDICARE, MEDICAID, SELFPAY ==
[2023-07-02 10:19] VITALS: BMI 47.5
[2024-09-13] VITALS (17 sets, daily range): BP systolic 120–139; BP diastolic 59–91; PULSE 72–96; RESP 16–18; TEMP 36.8; O2SAT 79–100
--- NOTE | 2024-09-13 16:31 | PC.NURSE ---
Pt lying back in [facility]. Left arm has 3+ edema to forearm and hand.
--- NOTE | 2024-09-13 16:49 | DI.US.S_ITS ---
PROCEDURE: US PERIPH VENOUS UP EXTREM LT INDICATIONS: multiple falls swelling to forehead TECHNIQUE: Real-time imaging, as well as color and pulse Doppler interrogation, was performed of the upper extremity deep veins from the inferior neck to the antecubital fossa. COMPARISON: None. FINDINGS: The internal jugular vein, visualized portions of the subclavian vein, axillary, and brachial veins are free of intraluminal thrombus. Where physically possible, the veins are normally compressible. Color and pulse Doppler demonstrate normal intraluminal flow, with expected phasicity and pulsatility. Additional scanning of the cephalic and basilic veins of the superficial system demonstrates normal compressibility, without thrombus. Mild soft tissue edema of the antecubital fossa. IMPRESSION: No findings of upper extremity deep venous thrombosis can be seen. Dictated by: John Puri M.D. on 09/13/2024 at 17:41 Approved by: John Puri M.D. on 09/13/2024 at 17:41
--- NOTE | 2024-09-13 16:49 | DI.CT.S_ITS ---
PROCEDURE: CT HEAD/BRAIN WO CON INDICATIONS: multiple falls swelling to forehead TECHNIQUE: Noncontrast 4.5 mm thick angled axial sections acquired from the foramen magnum to the vertex, with coronal and sagittal reformats. For radiation dose reduction, the following was used: automated exposure control, adjustment of mA and/or kV according to patient size. COMPARISON: [facility], CT, CT HEAD/BRAIN WO CON, 11/15/2020, 9:41. FINDINGS: Image quality: Diagnostic. CSF spaces: Basal cisterns are patent. No extra-axial fluid collections. The ventricles are symmetric in size and shape. Brain: No intracranial bleeds or masses. There is cerebral volume loss for age, with resultant ventricular and sulcal prominence. There are periventricular and deep white matter chronic small vessel ischemic changes. There is intracranial internal carotid artery atherosclerosis. Skull and face: Calvarium and visualized facial bones appear intact, without suspicious lesions. Sinuses: Visualized sinuses and mastoids are clear. IMPRESSION: 1. CT head without acute intracranial abnormalities or acute calvarial fractures. 2. Age-related senescent changes and sequela of chronic small vessel ischemic disease. Dictated by: John Puri M.D. on 09/13/2024 at 17:36 Approved by: John Puri M.D. on 09/13/2024 at 17:38
[2024-09-13 17:32] LABS: Add Manual Diff / Slide Review NO; Basophils Absolute Auto 100 /uL (0-100); Basophils Percent Auto 0.7 % (0-2); Eosinophils Absolute Auto 300 /uL (0-450); Eosinophils Percent Auto 3.1 % (2-4); Hematocrit 38.7 % (36-46); Hemoglobin 12.4 g/dL (12.0-16.0); Lymphocytes Absolute Auto 2600 /uL (1100-4500); Lymphocytes Percent Auto 24.7 % (25-40); Mean Corpuscular HGB Conc 32.2 % (30-36); Mean Corpuscular Hemoglobin 27.4 PG (26-34); Mean Corpuscular Volume 85.2 fL (80-100); Monocytes Absolute Auto 600 /uL (0-900); Monocytes Percent Auto 5.5 % (3-14); Neutrophils Absolute Auto 6900 /uL (1500-7000); Platelet Count 314 X10^3/uL (150-400); Red Blood Cell Count 4.54 X10^6/uL (4.0-5.2); Red Cell Distribution Width 14.3 % (11.6-14.8); White Blood Cell Count 10.5 X10^3/uL (4.5-11.0)
[2024-09-13 17:50] LABS: Alanine Aminotransferase 24 IU/L (<35); Albumin 3.9 g/dL (3.5-5.0); Albumin Globulin Ratio 1.2 (1.0-2.8); Alkaline Phosphatase 71 U/L (38-126); Aspartate Aminotransferase 29 IU/L (14-36); BUN Creatinine Ratio 14.3 (6-22); Bilirubin Total 0.3 mg/dL (0.2-1.3); Blood Urea Nitrogen 10 mg/dL (7-17); Carbon Dioxide 36 mmol/L (22-32); Chloride 98 mmol/L (98-107); Estimated Glomerular Filt Rate > 60 mL/min (>60); Globulin 3.3 g/dL (1.7-4.1); Glucose 101 mg/dL (70-100); HEMOLYSIS < 15 (0-50); Potassium 4.1 mmol/L (3.4-5.1); Sodium 139 mmol/L (137-145); Total Protein 7.2 g/dL (6.3-8.2)
--- NOTE | 2024-09-13 18:03 | PC.NURSE ---
Pt states that she has sleep apnea. Sats 88 when snoring. Placed on 2L per NC. Sats improved to 95% on 2L.
--- NOTE | 2024-09-13 20:44 | PC.NURSE ---
Pt up to BR with SBA. Pt was able to transfer self to and back to [facility]. Pt was winded, sats 92% on RA.
--- NOTE | 2024-09-13 23:35 | ED_ITS ---
HPI - General Adult General Chief complaint: Dizziness Stated complaint: L side pain Time Seen by Provider: 09/13/24 16:48 Source: patient and EMS Mode of arrival: EMS History of Present Illness HPI narrative: 44-year-old female with history of POTS, chronic vertigo, chronic hypoxia for which she uses 3 L at home, had a fall a week ago, with left arm pain that is persistent, with some swelling noted today. Concerned about blood clot. No chest pain or shortness of breath. No redness or fever. She has not taking antibiotics at this time. She has had continued dizziness, seems typical of her chronic vertigo symptoms. No focal weakness to face arm or leg. No focal numbness to face arm or leg. Related Data Home Medications Medication Instructions Recorded Confirmed hzlaiuo-zobeluttjpuut-fqkqyukn 250 1 tab PO Q4-6H PRN Migraine 09/18/22 10/29/23 mg-250 mg-65 mg tablet (Excedrin Headache Extra Strength) galcanezumab-gnlm 120 mg/mL 120 mg SUBCUT QMONTH 11/28/22 10/29/23 subcutaneous syringe (Emgality) ivabradine 5 mg tablet (Corlanor) 5 mg PO BID 07/04/23 10/29/23 Previous Rx's Medication Instructions Recorded magnesium oxide See Rx Instructions .Route 12/22/20 .COMPLEX #180 tabs levalbuterol HCl 1.25 mg/3 mL See Rx Instructions .Route 04/09/21 solution for nebulization .COMPLEX #300 mL nystatin 100,000 unit/gram topical 1 applic topical TID #60 grams 06/04/21 powder cholecalciferol (vitamin D3) 100 2,000 unit PO BID #180 caps 11/26/21 mcg (4,000 unit) capsule albuterol sulfate 90 mcg/actuation 2 puff inhalation Q4-6H PRN 03/19/22 aerosol inhaler (ProAir HFA) Shortness Of Breath #8.5 grams melatonin 3 mg tablet,extended See Rx Instructions PO .COMPLEX 07/05/22 release #90 tabs electronic blood pressure cuff #1 ea 12/09/22 mechanical lift chair #1 ea 12/09/22 nystatin 100,000 unit/gram topical See Rx Instructions .Route 01/15/23 ointment .COMPLEX #30 grams epinephrine 0.3 mg/0.3 mL See Rx Instructions .Route 01/20/23 injection, auto-injector .COMPLEX #2 ea elevated toilet seat #1 ea 02/10/23 tramadol 50 mg tablet 50 mg PO Q8H PRN pain #7 tabs 10/04/23 lidocaine 5 % topical ointment 1 applic topical BID PRN for pain 12/04/23 #49.222 grams Lamictal 200 mg tablet 200 mg PO DAILY #90 tabs 01/05/24 (lamotrigine) fluticasone furoate 200 1 inh PO ONCE PM #120 ea 02/26/24 mcg-vilanterol 25 mcg/dose inhalation powder (Breo Ellipta) vortioxetine 20 mg tablet 20 mg PO DAILY #90 tabs 03/01/24 (Trintellix) lactulose 20 gram/30 mL oral 40 g (60 mL) PO BID #4,200 mL 03/12/24 solution omeprazole 40 mg capsule,delayed 40 mg PO BID #180 caps 03/18/24 release umeclidinium 62.5 mcg/actuation 1 inh PO DAILY #90 ea 03/18/24 blister powder for inhalation (Incruse Ellipta) methylprednisolone 4 mg tablets in See Rx Instructions PO .COMPLEX 04/01/24 a dose pack (Memolanerol (Teofilo)) #21 ea dupilumab 300 mg/2 mL subcutaneous 300 mg (2 mL) SUBCUT Q2W #4 mL 06/03/24 pen injector (Dupixent) montelukast 10 mg tablet 10 mg PO QPM #90 tabs 06/10/24 diazepam 5 mg tablet 5 mg PO TID #90 tabs 06/11/24 hydroxyzine HCl 50 mg tablet 50 mg PO QID PRN anxiety #360 tabs 07/06/24 pregabalin 150 mg capsule (Lyrica) 150 mg PO BID #60 caps 07/23/24 lisinopril 40 mg tablet 40 mg PO DAILY #90 tabs 08/02/24 ondansetron 8 mg disintegrating See Rx Instructions .Route 08/02/24 tablet .COMPLEX #90 tabs scopolamine base 1 mg over 3 days 1 patch transdermal Q3D PRN excess 08/02/24 transdermal patch salivation #10 ea amoxicillin 875 mg-potassium 1 tab PO BID #14 tabs 08/10/24 clavulanate 125 mg tablet baclofen 20 mg tablet 40 mg (2 x 20 mg) PO QPM #60 tabs 09/06/24 prazosin 2 mg capsule 4 mg (2 x 2 mg) PO ONCE PM #180 09/06/24 caps Allergies Allergy/AdvReac Type Severity Reaction Status Date / Time bupropion [BUPROPION] Allergy Mild facial rash Verified 10/29/23 11:15 hydrocodone [HYDROCODONE] Allergy Mild rash Verified 10/29/23 11:15 iodine [IODINE] Allergy Mild edema Verified 10/29/23 11:15 lithium AdvReac Severe suicidal Verified 10/29/23 11:15 thoughts lorazepam AdvReac Severe worsens Verified 10/29/23 11:15 panic trazodone AdvReac Severe suicidal Verified 10/29/23 11:15 thoughts diphenhydramine AdvReac Intermediate panic Verified 10/29/23 11:15 [From Benadryl] attacks Patient History Medical History Lumbar radiculopathy Cervical radiculopathy Low back pain Thoracic back pain Shoulder pain Neck pain Chronic migraine [place] use Suicide attempt by acetaminophen overdose Aspirin overdose Essential (primary) hypertension Tachycardia Rheumatoid arthritis Chronic cough Asthma Hayfever Agoraphobia Panic attacks PTSD (post-traumatic stress disorder) Depression Anxiety Migraines Chronic headaches Bursitis of left hip Scoliosis Chronic back pain Corneal pigmentation of both eyes MRSA infection Anemia Vertigo Tinnitus Recurrent sinusitis History of recurrent ear infection Hearing loss Partial blindness Interstitial cystitis Painful menstrual periods Ovarian cyst Irregular periods/menstrual cycles History of heavy periods Endometriosis Abnormal Pap smear of cervix Kidney infection (2002) Frequent UTI BRCA negative PUD (peptic ulcer disease) IBS (irritable bowel syndrome) Hemorrhoids GI bleeding GERD (gastroesophageal reflux disease) Gastroparesis Gastric ulcer Anal fissure (01/24/12) History of tilt table evaluation (05/02/15) Vaginal delivery Asthma with allergic rhinitis Fibromyalgia Nondiabetic gastroparesis (01/04/16) Irritable bowel syndrome with diarrhea (01/04/16) Chronic interstitial cystitis (01/04/16) History of partial hysterectomy (01/04/16) History of fracture of hip (01/04/16) History of gastrointestinal hemorrhage (01/04/16) Surgical History History of colonoscopy (01/10/15) History of endoscopy (01/10/15) History of endoscopy (05/04/07) History of rectal surgery (01/24/12) Anesthesia complication History of hip surgery (12/13/92) Status post laparoscopy (05/04/07) History of bladder surgery (02/2001) Status post laparoscopy (1999) History of third molar tooth extraction (1997) History of bladder suspension procedure (06/14/13) Status post dilation and curettage (10/2009) Status post laparoscopic cholecystectomy (03/11/06) Status post appendectomy (08/1996) Status post hysterectomy (05/07/10) Family History Brother Age: 48 Back pain Brother Age: 47 Migraines Child Age: 21 Mental health problem Child Age: 20 Asperger syndrome Father Age: 71 Anger Mother Age: 65 Hypothyroidism Anxiety Stroke Sister Age: 48 Thyroid cancer Brain tumor Grandfather No problems noted. Grandmother Brain tumor Grandfather No problems noted. Grandmother Ovarian cancer Social History marital status: number of children: 2 household members: children lives independently: Yes caregiver/support person: Yes housing: house Smoking Status: Never smoker second hand exposure: No alcohol intake: current substance use type: does not use Smoking Status: Never smoker alcohol intake frequency: a few times a week Exam Narrative Exam Narrative: GENERAL: Well-developed patient, in mild distress. HEAD: Atraumatic. Normocephalic. No obvious face or scalp trauma EYES: Pupils equal round and reactive. Extraocular motions intact. No scleral icterus. No injection or drainage. ENT: Nose without bleeding, purulent drainage. Throat without erythema, tonsillar hypertrophy or exudate. Airway patent. Wearing 3 L nasal cannula oxygen NECK: Trachea midline. Non tender. Normal range of motion. CARDIOVASCULAR: Regular rate and rhythm without murmurs, gallops, or rubs. RESPIRATORY: Clear to auscultation. Breath sounds equal bilaterally. No wheezes, rales, or rhonchi. GASTROINTESTINAL: Abdomen soft, non-tender, nondistended. EXTREMITIES: No edema or joint tenderness. Slight swelling left arm diffuse, no redness or streaking, no cellulitis changes, not warm. BACK: Nontender without deformity or crepitance. No flank tenderness. NEURO: AOx3. Motor functions grossly nonfocal SKIN: No rash or erythema of visible areas Initial Vital Signs Initial Vital Signs: Vital Signs Pulse Rate 90 09/13/24 16:15 Blood Pressure 135/86 09/13/24 16:15 Pulse Oximetry 92 09/13/24 16:15 Course Orders Ordered: ED Orders 09/13/24 16:49 CT head/brain wo con Stat US periph venous up extrem lt Stat 09/13/24 17:24 Complete Blood Count AUTO DIFF Stat Comprehensive Metabolic Panel Stat Vital Signs Vital signs: Vital Signs - 8 hr 09/13/24 21:05 09/13/24 21:30 09/13/24 21:30 Pulse Rate 96 H 93 H Respiratory Rate 18 Blood Pressure 123/84 Pulse Oximetry 93 93 Oxygen Delivery Method 09/13/24 22:00 09/13/24 22:00 09/13/24 22:30 Pulse Rate 94 H 86 Respiratory Rate 17 Blood Pressure 120/75 Pulse Oximetry 93 93 Oxygen Delivery Method Room Air 09/13/24 23:00 09/13/24 23:00 09/13/24 23:30 Pulse Rate 86 89 Respiratory Rate Blood Pressure 121/81 Pulse Oximetry 100 100 Oxygen Delivery Method 09/13/24 23:31 09/13/24 23:31 Pulse Rate 88 Respiratory Rate 18 Blood Pressure 131/82 Pulse Oximetry 93 Oxygen Delivery Method Room Air Medical Decision Making Lab Data Lab results reviewed: Yes I reviewed the patient's lab results. Lab results narrative: White blood cell count 12224, hemoglobin 12.4, platelets adequate. Basic metabolic panel shows serum CO2 36 slight elevation, otherwise unremarkable, glucose 101 noted. Liver functions normal. 09/13/24 17:24 09/13/24 17:24 Labs: Lab Results 09/13/24 Range/Units 17:24 WBC 10.5 (4.5-11.0) X10^3/uL RBC 4.54 (4.0-5.2) X10^6/uL Hgb 12.4 (12.0-16.0) g/dL Hct 38.7 (36-46) % MCV 85.2 (80-100) fL MCH 27.4 (26-34) PG MCHC 32.2 (30-36) % RDW 14.3 (11.6-14.8) % Plt Count 314 (150-400) X10^3/uL Neut % (Auto) 66.0 (50-75) % Lymph % (Auto) 24.7 L (25-40) % [place] % (Auto) 5.5 (3-14) % Eos % (Auto) 3.1 (2-4) % Baso % (Auto) 0.7 (0-2) % Neut # (Auto) 6900 (1783-4064) /uL Lymph # (Auto) 2600 (5204-7169) /uL [place] # (Auto) 600 (0-900) /uL Eos # (Auto) 300 (0-450) /uL Baso # (Auto) 100 (0-100) /uL Sodium 139 (137-145) mmol/L Potassium 4.1 (3.4-5.1) mmol/L Chloride 98 (98-107) mmol/L Carbon Dioxide 36 H (22-32) mmol/L BUN 10 (7-17) mg/dL Creatinine 0.70 (0.52-1.04) mg/dL Estimated GFR > 60 (>60) mL/min BUN/Creatinine Ratio 14.3 (6-22) Glucose 101 H (70-100) mg/dL Calcium 9.0 (8.4-10.2) mg/dL Total Bilirubin 0.3 (0.2-1.3) mg/dL AST 29 (14-36) IU/L ALT 24 (<35) IU/L Alkaline Phosphatase 71 (38-126) U/L Total Protein 7.2 (6.3-8.2) g/dL Albumin 3.9 (3.5-5.0) g/dL Globulin 3.3 (1.7-4.1) g/dL Albumin/Globulin Ratio 1.2 (1.0-2.8) Imaging Data CT scan - head: Radiologist's Impression: Close Head CT (Signed) John Puri - 09/13/24 Peripheral Vascular Ultrasound (Signed) John Puri - 09/13/[address] [address] [address] Scan Report Signed Patient: Dorinda Harper MR#: [id number] : 1980 Acct:[id number] Age/Sex: 44 / F Date of Service: 09/13/24 Loc: ED Accession Number: [id number] Procedure: CT head/brain wo con Ordering Provider: Abigail Rowley D.O. PROCEDURE: CT HEAD/BRAIN WO CON INDICATIONS: multiple falls swelling to forehead TECHNIQUE: Noncontrast 4.5 mm thick angled axial sections acquired from the foramen magnum to the vertex, with coronal and sagittal reformats. For radiation dose reduction, the following was used: automated exposure control, adjustment of mA and/or kV according to patient size. COMPARISON: [facility], CT, CT HEAD/BRAIN WO CON, 11/15/2020, 9:41. FINDINGS: Image quality: Diagnostic. CSF spaces: Basal cisterns are patent. No extra-axial fluid collections. The ventricles are symmetric in size and shape. Brain: No intracranial bleeds or masses. There is cerebral volume loss for age, with resultant ventricular and sulcal prominence. There are periventricular and deep white matter chronic small vessel ischemic changes. There is intracranial internal carotid artery atherosclerosis. Skull and face: Calvarium and visualized facial bones appear intact, without suspicious lesions. Sinuses: Visualized sinuses and mastoids are clear. IMPRESSION: 1. CT head without acute intracranial abnormalities or acute calvarial fractures. 2. Age-related senescent changes and sequela of chronic small vessel ischemic disease. Dictated by: John Puri M.D. on 09/13/2024 at 17:36 Approved by: John Puri M.D. on 09/13/2024 at 17:38 Upper extremity venous Doppler study: Radiologist's Impression: [place] [address] Ultrasound Report Signed Patient: Dorinda Harper MR#: [id number] : 1980 Acct:[id number] Age/Sex: 44 / F Date of Service: 09/13/24 Loc: ED Accession Number: [id number] Procedure: US periph venous up extrem lt Ordering Provider: Abigail Rowley D.O. PROCEDURE: US PERIPH VENOUS UP EXTREM LT INDICATIONS: multiple falls swelling to forehead TECHNIQUE: Real-time imaging, as well as color and pulse Doppler interrogation, was performed of the upper extremity deep veins from the inferior neck to the antecubital fossa. COMPARISON: None. FINDINGS: The internal jugular vein, visualized portions of the subclavian vein, axillary, and brachial veins are free of intraluminal thrombus. Where physically possible, the veins are normally compressible. Color and pulse Doppler demonstrate normal intraluminal flow, with expected phasicity and pulsatility. Additional scanning of the cephalic and basilic veins of the superficial system demonstrates normal compressibility, without thrombus. Mild soft tissue edema of the antecubital fossa. IMPRESSION: No findings of upper extremity deep venous thrombosis can be seen. Dictated by: John Puri M.D. on 09/13/2024 at 17:41 Approved by: John Puri M.D. on 09/13/2024 at 17:41 [facility] Narrative Medical decision making narrative: 44-year-old female with history of chronic vertigo dizziness, pots disease, chronic hypoxia, fell a week ago, with persisting left arm pain and diffuse swelling today. No history of known DVTs. Concern about blood clots. Ultrasound Doppler study left upper extremity ordered from triage. CT head noncontrast study ordered from triage. CT head noncontrast study, no acute changes. See radiology report. Left upper extremity venous Doppler study, no venous thrombosis changes. See radiology report. Patient feels her chronic vertigo symptoms are currently at baseline, she would like to go home, she will take local taxi back home. She can take Tylenol for pain control left arm. He was agreeable to this plan. Follow up with her regular doctor advised. Return precautions discussed. Discharge Plan Departure Patient Disposition: Home Clinical Impression: Left arm swelling, Dizziness Activity Restrictions/Additional Instructions: History of pots disease, history of chronic recurrent dizziness, recent fall last week, left arm swelling. Concern for blood clots, ultrasound venous Doppler of the left upper extremity was ordered from triage, and did not show any evidence of venous thrombosis clotting at this time. CT head noncontrast study also was ordered from triage, no acute changes noted on radiology report. You have chronic/recurrent dizziness, and feel that you are about at your baseline, not worsening subsequent to recent trauma. You felt better, wanted to go home. You can take Tylenol as needed for pain control. Recheck your arm if there is persisting swelling in the next few days with your regular doctor. Return earlier to this/nearest emergency department for any change worsening symptoms or any concerns prior Continue your chronic medications for now same doses. Prescriptions: No Action scopolamine base 1 mg over 3 days patch 3 day 1 patch transdermal Q3D PRN (Reason: excess salivation) Qty: 10 3RF cholecalciferol (vitamin D3) 100 mcg (4,000 unit) capsule 2,000 unit PO BID Qty: 180 1RF Trintellix 20 mg tablet 20 mg PO DAILY Qty: 90 3RF lamotrigine [Lamictal] 200 mg tablet 200 mg PO DAILY Qty: 90 3RF Patient Comments: Patient states she needs to take the brand name, blue triangle pill. Off brand can cause suicidal ideation. hydroxyzine HCl 50 mg tablet 50 mg PO QID PRN (Reason: anxiety) Qty: 360 1RF magnesium oxide 500 mg tablet See Rx Instructions .ROUTE .COMPLEX Qty: 180 0RF Dose Instruction: TAKE 2 TABLETS BY MOUTH AT BEDTIME Rx Instructions: TAKE 2 TABLETS BY MOUTH AT BEDTIME levalbuterol HCl 1.25 mg/3 mL solution for nebulization See Rx Instructions .ROUTE .COMPLEX Qty: 300 5RF Dose Instruction: INHALE THE CONTENTS OF 1 VIAL VIA NEBULIZER EVERY 4 HOURS NEEDED FOR WHEEZING Rx Instructions: INHALE THE CONTENTS OF 1 VIAL VIA NEBULIZER EVERY 4 HOURS NEEDED FOR WHEEZING nystatin 100,000 unit/gram powder 1 applic topical TID Qty: 60 3RF Patient Comments: Apply under left breast. albuterol sulfate [ProAir HFA] 90 mcg/actuation HFA aerosol inhaler 2 puff INHALATION Q4-6H PRN (Reason: Shortness Of Breath) Qty: 8.5 1RF melatonin 3 mg tablet extended release See Rx Instructions PO .COMPLEX Qty: 90 0RF Rx Instructions: Take 1 tab PO at bedtime. Emgality Syringe 120 mg/mL syringe 120 mg SUBCUT QMONTH ([facility] [place] mechanical lift chair See Rx Instructions .Route .MEDSUPPLY Qty: 1 0RF Rx Instructions: As directed, pt 359 pounds. ([facility] [place] electronic blood pressure cuff See Rx Instructions .Route .MEDSUPPLY Qty: 1 0RF Rx Instructions: As directed, to be used daily to monitor blood pressure nystatin 100,000 unit/gram ointment See Rx Instructions .ROUTE .COMPLEX Qty: 30 0RF Dose Instruction: APPLY TOPICALLY TWICE A DAY Rx Instructions: APPLY TOPICALLY TWICE A DAY epinephrine 0.3 mg/0.3 mL auto-injector See Rx Instructions .ROUTE .COMPLEX Qty: 2 0RF Dose Instruction: INJECT 0.3 MLS (0.3 MG TOTAL) INTO THE MUSCLE ONCE NEEDED Rx Instructions: INJECT 0.3 MLS (0.3 MG TOTAL) INTO THE MUSCLE ONCE NEEDED (DME) elevated toilet seat See Rx Instructions .Route .MEDSUPPLY Qty: 1 0RF Rx Instructions: As directed lidocaine 5 % ointment 1 applic topical BID PRN (Reason: for pain) Qty: 49.222 1RF Breo Ellipta 200-25 mcg/dose blister with device 1 inh PO ONCE PM Qty: 120 5RF lactulose 20 gram/30 mL solution 40 g PO BID Qty: 4200 1RF Incruse Ellipta 62.5 mcg/actuation blister with device 1 inh PO DAILY Qty: 90 3RF omeprazole 40 mg capsule,delayed release(DR/EC) 40 mg PO BID Qty: 180 3RF Dupixent Pen 300 mg/2 mL pen injector 300 mg SUBCUT Q2W Qty: 4 3RF montelukast 10 mg tablet 10 mg PO QPM Qty: 90 3RF diazepam 5 mg tablet 5 mg PO TID Qty: 90 2RF pregabalin [Lyrica] 150 mg capsule 150 mg PO BID Qty: 60 2RF ondansetron 8 mg tablet,disintegrating See Rx Instructions .ROUTE .COMPLEX Qty: 90 0RF Dose Instruction: DISSOLVE 1 TABLET ON THE TONGUE EVERY 8 HOURS NEEDED FOR NAUSEA/VOMITING Rx Instructions: DISSOLVE 1 TABLET ON THE TONGUE EVERY 8 HOURS NEEDED FOR NAUSEA/VOMITING lisinopril 40 mg tablet 40 mg PO DAILY Qty: 90 3RF amoxicillin-pot clavulanate 875-125 mg tablet 1 tab PO BID Qty: 14 0RF prazosin 2 mg capsule 4 mg PO ONCE PM Qty: 180 3RF Rx Instructions: This provider is out until after the new year. I am not able to send replacement RX for 100d supply, I am only able to refill the previous RX. baclofen 20 mg tablet 40 mg PO QPM Qty: 60 0RF tramadol 50 mg tablet 50 mg PO Q8H PRN (Reason: pain) Qty: 7 0RF methylprednisolone [Medrol (Teofilo)] 4 mg tablets,dose pack See Rx Instructions .ROUTE .COMPLEX Qty: 21 0RF Rx Instructions: orally per package directions Excedrin Extra Strength 250-250-65 mg tablet 1 tab PO Q4-6H PRN (Reason: Migraine Headache) Corlanor 5 mg tablet 5 mg PO BID Rx Instructions: must administer with a meal/food Referrals: Rolanda Raymond MD [Primary Care Provider] - Stand Alone Forms: Patient Portal/API/Survey
== END 2024-09-13 23:58 | disposition home or self-care (01) ==
PROVIDERS: Emergency Medicine; Emergency Provider Emergency Medicine; PCP Family Medicine
DX: M79.602 Pain in left arm (principal); M79.89 Other specified soft tissue disorders; R42 Dizziness and giddiness; G90.A Postural orthostatic tachycardia syndrome [POTS]; Z99.81 Dependence on supplemental oxygen
CPT/HCPCS: 36415; 70450; 80053; 85025; 93971; 99284

== ENCOUNTER 2024-09-19 12:45 | Inpatient (IN) | payer MEDICARE, MEDICAID, SELFPAY ==
[2023-07-02 10:19] VITALS: BMI 47.5
[2024-09-19] VITALS (91 sets, daily range): BP systolic 69–129; BP diastolic 30–78; PULSE 58–103; RESP 12–26; TEMP 31–36.8; O2SAT 88–100; BMI 43.6
--- NOTE | 2024-09-19 12:58 | EKG_ITS ---
[address] [address] Test Date: 2024-09-19 Pat Name: Dorinda Harper Department: Room: Gender: Female Cook Manager: SADIA : 1980 Requested By: Order Number: [id number] Reading MD: Kwasi Patel MD Measurements Intervals [place] Rate: 98 P: 14 MN: 170 QRS: 129 QRSD: 80 T: 6 QT: 382 QTc: 487 Interpretive Statements Normal sinus rhythm Low voltage QRS Left posterior fascicular block Cannot rule out Anterior infarct , age undetermined Electronically Signed On 09-20-2024 7:33:39 PST by Kwasi Patel MD
--- NOTE | 2024-09-19 12:59 | ED.GENADULT ---
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 ([id number]) /uL [place] # (Auto) (0-900) /uL Eos # (Auto) (0-450) /uL Baso # (Auto) (0-100) /uL PT (9.4-12.5) SECONDS INR (0.9-1.3) APTT (25.1-36.5) SECONDS VBG pH 7.36 (7.33-7.43) VBG pCO2 52.3 H (45-50) mmHg VBG pO2 56 H (35-45) mmHg VBG HCO3 30 H (24-28) mmol/L VBG Total CO2 29 (24-29) mmol/L VBG O2 Saturation 87 H (70-75) % VBG Base Excess 3.3 (0-4) mmol/L FiO2 % 30 % % Sodium (137-145) mmol/L Potassium (3.4-5.1) mmol/L Chloride (98-107) mmol/L Carbon Dioxide (22-32) mmol/L BUN (7-17) mg/dL Creatinine (0.52-1.04) mg/dL Estimated GFR (>60) mL/min BUN/Creatinine Ratio (6-22) Glucose (70-100) mg/dL Lactate 0.9 (0.7-2.1) mmol/L Calcium (8.4-10.2) mg/dL Total Bilirubin (0.2-1.3) mg/dL AST (14-36) IU/L ALT (<35) IU/L Alkaline Phosphatase (38-126) U/L Total Creatine Kinase (30-135) U/L Troponin I (0.01-0.034) ng/mL NT-Pro-B Natriuret Pep (<125) pg/mL Total Protein (6.3-8.2) g/dL Albumin (3.5-5.0) g/dL Globulin (1.7-4.1) g/dL Albumin/Globulin Ratio (1.0-2.8) Procalcitonin (<0.5) ng/mL Urine Color Urine Appearance Urine pH (4.5-8.0) Ur Specific [place] (1.000-1.035) Urine Protein (Negative) Urine Glucose (UA) (Negative) g/dL Urine Ketones (NEGATIVE) Urine Occult Blood (Negative) Urine Nitrate (Negative) Urine Bilirubin (NEGATIVE) Ur Bilirubin Confirm (Negative) Urine Urobilinogen (0.2) E.U./dL Ur Leukocyte Esterase (NEGATIVE) Urine RBC (0-5/HPF) Urine WBC (0-5/HPF) Ur Squamous Epith Cells (0-5/HPF) Urine Bacteria (None) Hyaline Casts (None) Urine Mucus (Negative) Ur Culture Indicated? Vol Urine Centrifuged SARS-CoV-2 (PCR) (Negative) Influenza A (RT-PCR) (NEGATIVE) Influenza B (RT-PCR) (NEGATIVE) RSV (PCR) (Negative) MDM Narrative Medical decision making narrative: CC: Weakness, breathing difficulties Complicating co-morbidities: Morbid obesity, complicating psychiatric issues, minimally active tends to lie in bed on her left side Data collected from: patient, medics, discussion with daughters who eventually called medics Social determinants of health that may influence the patients condition: Significant difficulty in caring for self, has tried to get home health currently daughters are helping Discuss code status on arrival and she is full code including intubation Medical records reviewed: Previous ER notes and primary care notes are reviewed Differential considered: Sepsis, cellulitis right breast, cellulitis abdominal wall, cellulitis left axilla, left upper extremity DVT, asthma exacerbation, pneumonia, respiratory failure Exam documented above, pertinent findings include: Patient appears acutely ill increasingly fatigued able to speak in full sentences. Minimal wheeze appreciated after 3 nebs given prior to arrival. Dramatic intertrigo with cellulitis over the right breast. Other areas of intertrigo do not appear to be obviously cellulitic. Area around the umbilicus is of some concern. No areas of underlying abscess. Abdomen is soft Lab Test results independently reviewed as above. Pertinent findings: Chemistries are notable for acute kidney injury with creatinine at 1.96. Remainder of chemistries are reassuring Lactic acid is elevated at 2.9 Troponin is undetectable BNP is undetectable Urine via catheter does not suggest acute infection Chemistries show leukocytosis 16.9 with minimal left shift. No anemia COVID influenza and RSV are negative Initial VBG has a pH of 7.36 with a CO2 of 61 bicarb of 35. Repeat venous blood gas shows her CO2 has come down from 61-52 Independently reviewed EKG: Sinus tachycardia at a rate of 98. No acute ischemic changes Imaging studies independently reviewed: Chest x-ray shows appropriate placed central line no evidence of pneumothorax, no infiltrates no significant cardiomegaly CT scan of the head done for altered mental status shows no acute abnormalities Ultrasound done of the left upper extremity due to the edema shows no DVT Treatments: Fluid resuscitation, central line placement, additional fluid resuscitation, antibiotics, pressors. BiPAP started Re-evaluations: 430 pm repeat fluid evaluation, good capillary refill, IVC is less collapsible, blood pressure has responded nicely to fluids and pressors Repeat Discussion: 44-year-old woman comes in with initial complaints of wheezing and difficulty breathing. Final diagnosis is severe sepsis secondary to right breast cellulitis with hypercarbic respiratory failure. Additionally has acute renal insufficiency. There was no evidence of pneumonia, intra cranial abnormality or stroke, no congestive heart failure, no intra-abdominal abscess. Initially was exceptionally dry, given 2 L of fluid while central line was being placed. Blood pressure was starting to come up IVC had complete collapse with each breath suggesting severe dehydration. She was started on pressors, broad-spectrum antibiotics, Sanchez catheter was placed. BiPAP was started and she is tolerating this nicely. I think she is quite fatigued as she has not slept for a number of days. Her primary care physician is Dr. Oliver, admitting provider this evening would be Dr. Ga. Findings reviewed with him. At this time I do not think that she is going to progress to needing intubation within the next 24 hours. She will be admitted to our ICU Additional Information: Severe Sepsis Criteria [x ] bacterial source of infection suspected and documented [ ] 2 SIRS Criteria met [x ] HR >90 [x ] RR >20 [ ] fever or hypothermia [x ] leukocytosis/leukopenia/bandemia [ ] Evidence of at least 1 organ system dysfunction [ x ] Lactate > 2 [ x ] BP < 90 or MAP <65, >40mm decrease from normal baseline [ ] Creat > 2.0 [ ] T. Bili > 2.0 [ ] platelet count < 100k [ x ] altered mental status [ ] mechanical ventilation [ x ] provider documentation of severe sepsis, 1300 Severe Sepsis Determination. the patient has been screened and [x ] DOES meet criteria for severe sepsis [ ] DOES NOT meet criteria for severe sepsis Goal directed treatment Within 3 hours [ x] blood cx drawn prior to abx [ x ] broad spectrum abx started [ x ] lactic acid level checked [ x] lactic redrawn within 6 hours if >2.0 Septic Shock Criteria [ ] lactic > 4 at any time [ x ] SBP ,90 or MAP , 65 [x ] documentation of septic shock Time Septic Shock diagnosed: [ 1300 ] Septic Shock Determination. the patient has been screened and [ x ] DOES meet criteria for septic shock [ ] DOES NOT meet criteria for septic shock Goal directed therapy within 3 hours of septic shock or initial hypotension [ x ] 30ml/kg fluid [ ] ABW used [ x ] IBW (33.6) used due to BMI > 30 ideal body weight ordered, with fluid resuscitation re-evaluation of fluid volumes closer to that what that would be ordered with actual body weight are approach [ ] patient or advocate declining fluid administration after shared decision making conversation Clinical reason for NOT initiating fluid bolus: Within 6 hours (if continued hypotension after fluids or initial lactate >4) [ ] repeat volume status and tissue perfusion assessment documented after fluid bolus was completed at [Date/Time] Must include vital signs, cardiopulmonary exam, capillary refill, peripheral pulse evaluation, skin exam [ x ] Initiate vasopressor therapy if persistent hypotension after adequate fluid bolus Critical Care Time Critical Care Time Critical Care Time: Yes Total Critical Care Time: 47 Attestation: Critical care time is separate from other billable procedures. There is a high probability of a significant, sudden or life-threatening deterioration that requires my full and direct attention, intervention and personal management. This critical care time includes consultation with family and other consulting doctors, review of records, and interpretation of data from labs, EKGs and imaging as well as managements of sepsis, hypovolemia, hypotension, respiratory failure, cellulitis. Discharge Plan Departure Patient Disposition: Admitted As Inpatient Clinical Impression: Severe sepsis, Acute hypercapnic respiratory failure, Acute kidney injury Cellulitis Qualifiers: Site of cellulitis: trunk Site of cellulitis of trunk: chest wall Qualified Code(s): L03.313 - Cellulitis of chest wall Admit Date/Time: 09/19/24 17:10 Admit Provider: Matty Ga
[2024-09-19 13:25] LABS: Add Manual Diff / Slide Review NO; Basophils Absolute Auto 100 /uL (0-100); Basophils Percent Auto 0.5 % (0-2); Eosinophils Absolute Auto 300 /uL (0-450); Eosinophils Percent Auto 1.7 % (2-4); Hematocrit 38.8 % (36-46); Hemoglobin 12.4 g/dL (12.0-16.0); Lymphocytes Absolute Auto 3700 /uL (1100-4500); Lymphocytes Percent Auto 21.9 % (25-40); Mean Corpuscular Hemoglobin 27.2 PG (26-34); Mean Corpuscular Volume 85.1 fL (80-100); Monocytes Absolute Auto 1000 /uL (0-900); Monocytes Percent Auto 6.1 % (3-14); Neutrophils Absolute Auto 11800 /uL (1500-7000); Neutrophils Percent Auto 69.8 % (50-75); Platelet Count 413 X10^3/uL (150-400); Red Blood Cell Count 4.56 X10^6/uL (4.0-5.2); Red Cell Distribution Width 14.4 % (11.6-14.8); White Blood Cell Count 16.9 X10^3/uL (4.5-11.0)
[2024-09-19 13:32] LABS: INR 1.2 (0.9-1.3); Prothrombin Time 13.3 SECONDS (9.4-12.5)
--- NOTE | 2024-09-19 13:34 | DI.US.S_ITS ---
PROCEDURE: US [facility] VENOUS UP EXTREM LT INDICATIONS: edema TECHNIQUE: Real-time imaging, as well as color and pulse Doppler interrogation, was performed of the upper extremity deep veins from the inferior neck to the antecubital fossa. COMPARISON: [facility], , [facility] VENOUS UP EXTREM LT, 09/13/2024, 17:13. FINDINGS: The internal jugular vein, visualized portions of the subclavian vein, axillary, and brachial veins are free of intraluminal thrombus. Where physically possible, the veins are normally compressible. Color and pulse Doppler demonstrate normal intraluminal flow, with expected phasicity and pulsatility. Additional scanning of the cephalic and basilic veins of the superficial system demonstrates normal compressibility, without thrombus. Study is limited by patient body habitus and soft tissue edema. IMPRESSION: No findings of upper extremity deep venous thrombosis can be seen. Dictated by: Curry Cruz M.D. on 09/19/2024 at 14:36 Approved by: Curry Cruz M.D. on 09/19/2024 at 14:36
--- NOTE | 2024-09-19 13:34 | DI.CT.S_ITS ---
PROCEDURE: CT HEAD/BRAIN WO CON INDICATIONS: altered mental status, Left side weakness TECHNIQUE: Noncontrast 4.5 mm thick angled axial sections acquired from the foramen magnum to the vertex, with coronal and sagittal reformats. For radiation dose reduction, the following was used: automated exposure control, adjustment of mA and/or kV according to patient size. COMPARISON: [facility], CR, XR CHEST 1V, 09/19/2024, 14:31. [facility], CT, CT HEAD/BRAIN WO CON, 11/15/2020, 9:41. [facility], CT, CT HEAD/BRAIN WO CON, 09/13/2024, 17:04. FINDINGS: Image quality: Streak artifact can be seen through the skull base. CSF spaces: Basal cisterns are patent. No extra-axial fluid collections. Ventricles are normal in size and shape. Brain: No midline shift. No intracranial masses or hemorrhage. Cornejo-white matter interface is normal. Skull and face: Calvarium and visualized facial bones are intact, without suspicious lesions. Sinuses: Visualized sinuses and mastoids are clear. IMPRESSION: Noncontrast head CT within normal limits for age, similar to prior. If there is strong clinical suspicion for an acute stroke, please consider a brain MRI for further evaluation, as it is more sensitive (assuming that there is no contraindication to MRI). Dictated by: Curry Cruz M.D. on 09/19/2024 at 14:20 Approved by: Curry Cruz M.D. on 09/19/2024 at 14:21
--- NOTE | 2024-09-19 13:34 | DI.RAD.S_ITS ---
PROCEDURE: XR CHEST 1V INDICATIONS: post line placement TECHNIQUE: One view of the chest was acquired. COMPARISON: [facility], CR, XR CHEST 1V, 04/01/2024, 6:00. FINDINGS: Surgical changes and devices: Right-sided central venous catheter distal tip projecting over the proximal/mid SVC. Lungs and pleura: Lungs are clear. No pleural effusions or pneumothorax. Mediastinum: Mediastinal contours appear normal. Heart size is enlarged. Bones and chest wall: No suspicious bony lesions. Overlying soft tissues appear unremarkable. IMPRESSION: Right-sided central venous catheter is above. Dictated by: Marjan Santamaria M.D. on 09/19/2024 at 15:05 Approved by: Marjan Santamaria M.D. on 09/19/2024 at 15:06
[2024-09-19 13:37] LABS: Alanine Aminotransferase 25 IU/L (<35); Albumin 4.3 g/dL (3.5-5.0); Albumin Globulin Ratio 1.3 (1.0-2.8); Alkaline Phosphatase 74 U/L (38-126); Aspartate Aminotransferase 25 IU/L (14-36); BUN Creatinine Ratio 10.7 (6-22); Bilirubin Total 0.4 mg/dL (0.2-1.3); Blood Urea Nitrogen 21 mg/dL (7-17); Calcium 9.1 mg/dL (8.4-10.2); Carbon Dioxide 32 mmol/L (22-32); Chloride 96 mmol/L (98-107); Estimated Glomerular Filt Rate 32 mL/min (>60); Globulin 3.3 g/dL (1.7-4.1); Glucose 135 mg/dL (70-100); HEMOLYSIS < 15 (0-50); Lactate (Lactic Acid) 2.9 mmol/L (0.7-2.1); Potassium 4.2 mmol/L (3.4-5.1); Sodium 136 mmol/L (137-145); Total Protein 7.6 g/dL (6.3-8.2)
[2024-09-19 13:49] LABS: NT-proBNP (BNP-Adult 18+) 69 pg/mL (<125); Troponin I < 0.012 ng/mL (0.01-0.034)
[2024-09-19] MEDS: NOREPINEPHRINE BITARTRATE/D5W 4 MG/250 ML PLAST..BAG 30 MG IV (13:59)
[2024-09-19 14:01] LABS: Base Excess VBG 7.4 mmol/L (0-4); HCO3 VBG 35 mmol/L (24-28); Oxygen Saturation VBG 88 % (70-75); PCO2 VBG 61.3 mmHg (45-50); PO2 VBG 58 mmHg (35-45); Total CO2 VBG 34 mmol/L (24-29); pH VBG 7.36 (7.33-7.43)
[2024-09-19] MEDS: CEFEPIME 2 GM in SODIUM CHLORIDE 0.9% 100 ML IV (14:18)
[2024-09-19] MEDS: SODIUM CHLORIDE 0.9% 1,000 ML 1000 ML IV ×2 (14:20→15:19)
[2024-09-19 14:49] LABS: Appearance Urine UA SL CLOUDY; Bilirubin Urine UA 1+ (NEGATIVE); Color Urine UA YELLOW; Glucose Urine UA NEGATIVE (Negative); Ketones Urine UA TRACE (NEGATIVE); Leukocyte Esterase Urine UA NEGATIVE (NEGATIVE); Nitrite Urine UA NEGATIVE (Negative); Occult Blood Urine UA NEGATIVE (Negative); Protein Urine UA 1+ (Negative); Specific Gravity Urine UA >=1.030 (1.000-1.035)
[2024-09-19 14:59] LABS: Reflexed Lactate in 2 Hours Y
--- NOTE | 2024-09-19 15:08 | PC.NURSE ---
Pt reports sob; states use of inhaler earlier today. Pt states she has been feeling under the weather and has been avoiding coming to be seen. Rash noted bilaterally under breast with two open sores; no drainage noted. Foul smell noted. Pt states this has been going on for a while. Diffuse left arm swelling; slightly red. Pt reports ongoing swelling of left arm as well.
[2024-09-19 15:21] LABS: Bacteria Urine Occasional (0-1); Culture Indicated Urine Cult Not Indicated; Hyaline Casts Urine 1-5/LPF; Ictotest Urine Negative (Negative); Mucus Urine 1+ (Negative); RBC Urine 0-1/HPF (0-5/HPF); Squamous Epithelial Cell Urine 0-1 /HPF (0-5/HPF); Urine Volume 10mL (spun); WBC Urine 0-1/HPF (0-5/HPF)
[2024-09-19 15:23] LABS: Influenza A - CEPHEID Flu A NEGATIVE (NEGATIVE); Influenza B - CEPHEID Flu B NEGATIVE (NEGATIVE); Respiratory Syncytial Virus Negative (Negative)
[2024-09-19] MEDS: VANCOMYCIN 1,000 MG in SODIUM CHLORIDE 0.9% 250 ML 250 MG IV (15:24)
--- NOTE | 2024-09-19 15:27 | PC.NURSE ---
Mohit JOHN stated to use central line prior to xray confirmation. Blood return noted w/ good flow.
[2024-09-19 15:30] LABS: COVID-19 CEPHEID 4-PLEX PCR Negative (Negative)
--- NOTE | 2024-09-19 15:36 | PC.NURSE ---
Talked w/ daughter who stated Her oxygen was low in the 40s; she also has a bleeding rash w/ white pus. Pulse ox at home was reading low. She is suppose to wear oxygen at home. She has not been feeling good since 3am. Suppose to wear 3-4L. Prescribed O2 last year; Only wears as needed. We don't think o2 is working. Mom c/o nausea and feeling light headed for a few months. She has been in bed a lot. Only walks as needed to the bathroom. It has been hard for her to walk because of vertigo
--- NOTE | 2024-09-19 15:43 | PC.NURSE ---
Lilibeth [phone] (daughter) updated. Pt agreed to update daughter.
[2024-09-19 15:50] LABS: Lactate 2HR (Lactic Acid Rflx) 0.9 mmol/L (0.7-2.1)
[2024-09-19 15:59] LABS: Base Excess VBG 3.3 mmol/L (0-4); HCO3 VBG 30 mmol/L (24-28); Oxygen Saturation VBG 87 % (70-75); PCO2 VBG 52.3 mmHg (45-50); PO2 VBG 56 mmHg (35-45); Total CO2 VBG 29 mmol/L (24-29); pH VBG 7.36 (7.33-7.43)
[2024-09-19 16:07] LABS: PTT Partial Thromboplastin Tim 38 SECONDS (25.1-36.5)
[2024-09-19 16:23] LABS: Creatine Kinase 52 U/L (30-135)
[2024-09-19 16:41] LABS: Procalcitonin 0.135 ng/mL (<0.5)
--- NOTE | 2024-09-19 17:47 | PC.NURSE ---
Pt currently on bipap; tolerating well.
--- NOTE | 2024-09-19 17:58 | CM.DANOTE ---
ED CLINICAL PHARMACY COORDINATOR DCP Assessment Note: Pt is a 44yo female, resident of [place], is admitted for sepsis, respiratory failure, KAREN. Pt lives in a house with her 2 adult children, who have mental limitations. Pt's Primary Care Provider is Dr. Rolanda Raymond and insurance is [facility] Medicare and Medicaid. Reviewed chart and discussed with multidisciplinary team pt's medical status and initial discharge needs. ED CLINICAL PHARMACY COORDINATOR met w/patient at bedside. Pt not awake at this time, ED RN suggested to speak with POA/Mother, Shannon, who lives in [place]. ED CLINICAL PHARMACY COORDINATOR called pt mother, Shannon Harper, (ph# [phone]); introduced self and role. Pt mother confirmed living situation and an overall decline reported by patient and pt family members. Per pt mother, patient has been having recurring falls at home and has been mainly bedbound for about the last year and a half. Pt mother reports patient has a hospital bed at home and is supposed to use 3-4L O2 at home but is not always compliant with it. Pt mother reports pt has been trying to work with [facility] for in-home help but pt living conditions is a barrier to obtaining caregiving help. It is reported patient is mainly sedentary due to physical and mental health issues. Pt sees a therapist and psychiatrist at [facility]. Plan: Admission to ICU for further medical intervention/evaluation. CM team will follow closely for coordination of discharge plans. HAYLEY Blank Discharge Planning/Care Management CM Discharge Assessment Start: 09/19/24 17:51 Freq: Status: Active Protocol: Document 09/19/24 17:51 MW (Rec: 09/19/24 17:57 MW [id number]) Discharge Planning Assessment Assigned Hand Counter AZAR Fox DPOA/Assigned Designee Name Shannon Harper Mother (Lives in [place]) Contact Information [phone] Advance Directives? No Advance Directives on File No History Provided By Parents,Medical Record Has Patient been admitted in last 30 No days? Prior Living Arrangements Apartment/Condo Comment [place] [facility]hold Members children Comment Adult children (with mental limitations) - Vickie (22y) and Zechariah (21y) Type of transporation used prior to Public Transportation admit Independent with ADL's No Is patient alert and oriented? Yes Needs Assistance With Grooming,Managing Medications, Home Chores / Shopping Caregiver for Another Yes DME Already Rented / Owned Hospital Bed,Oxygen Comment 3-4L O2 at baseline. Discharge Plan Home Referrals Initiated Other Review Status In Process Please Provide Date Initial DC 09/19/24 Assessment Was Performed Next Review Type Continued Stay Review
--- NOTE | 2024-09-19 18:37 | RT ---
PT TRANSFERED FROM ED TO ICU WHILE ON V60 BIPAP. NO COMPLICATIONS NOTED.
--- NOTE | 2024-09-19 18:41 | PC.ADMIT ---
Addendum entered by Kwasi Hodgson R.N. 09/19/24 18:49: BP 113/53 with norepi turned off, pausing drip and will resume if needed. Original Note: [email or web address] Apt A Admission Note: Patient admitted from the ED via stretcher on BiPAP. Admission assessment and questions completed as best as possible given BiPAP and patient's mentation. Norepinephrine running at 30 mL/hr under basic mode to right IJ Central line. Infusion stopped, bag disposed, and new noreipinephrine drip started per protocol. Significant areas of red, hot, open wounds present under breasts and left armpit. Limited wound photos taken and uploaded to chart. Patient tolerating BiPAP well at 15/5 30% FiO2. The patient,Dorinda Harper,44 y/o, was given written information regarding hospital policies, unit procedures and contact persons. Patient's smoking status: Never smoker. Vital Signs - 8 hr 09/19/24 12:59 09/19/24 13:07 09/19/24 13:07 Temperature 97.0 F L Pulse Rate 100 H 97 H Respiratory Rate 24 22 Blood Pressure 99/49 L Pulse Oximetry 100 99 Oxygen Delivery Method Aerosol Mask Oxygen Flow Rate 4 Fraction of Inspired Oxygen 09/19/24 13:18 09/19/24 13:18 09/19/24 13:19 Temperature Pulse Rate 97 H Respiratory Rate 16 Blood Pressure 91/48 L 86/42 L Pulse Oximetry Oxygen Delivery Method Oxygen Flow Rate Fraction of Inspired Oxygen 09/19/24 13:19 09/19/24 13:20 09/19/24 13:20 Temperature Pulse Rate 99 H 98 H Respiratory Rate 20 20 Blood Pressure 78/40 L Pulse Oximetry 91 94 Oxygen Delivery Method Oxygen Flow Rate Fraction of Inspired Oxygen 09/19/24 13:21 09/19/24 13:21 09/19/24 13:22 Temperature Pulse Rate 100 H Respiratory Rate Blood Pressure 85/58 L 85/58 L Pulse Oximetry Oxygen Delivery Method Oxygen Flow Rate Fraction of Inspired Oxygen 09/19/24 13:22 09/19/24 13:24 09/19/24 13:24 Temperature Pulse Rate 100 H Respiratory Rate Blood Pressure 91/65 91/65 Pulse Oximetry 94 Oxygen Delivery Method Oxygen Flow Rate Fraction of Inspired Oxygen 09/19/24 13:24 09/19/24 13:25 09/19/24 13:25 Temperature Pulse Rate 102 H 100 H Respiratory Rate 22 26 H Blood Pressure 82/48 L Pulse Oximetry 93 Oxygen Delivery Method Oxygen Flow Rate Fraction of Inspired Oxygen 09/19/24 13:26 09/19/24 13:26 09/19/24 13:30 Temperature Pulse Rate 102 H 97 H Respiratory Rate 18 Blood Pressure 82/48 L Pulse Oximetry 91 95 Oxygen Delivery Method Oxygen Flow Rate Fraction of Inspired Oxygen 09/19/24 13:30 09/19/24 13:30 09/19/24 13:35 Temperature Pulse Rate 95 H Respiratory Rate 19 Blood Pressure 78/48 L 78/48 L Pulse Oximetry 94 Oxygen Delivery Method Oxygen Flow Rate Fraction of Inspired Oxygen 09/19/24 13:35 09/19/24 13:36 09/19/24 13:36 Temperature Pulse Rate 95 H Respiratory Rate 19 Blood Pressure 79/45 L 75/41 L Pulse Oximetry 94 Oxygen Delivery Method Oxygen Flow Rate Fraction of Inspired Oxygen 09/19/24 13:40 09/19/24 13:40 09/19/24 13:45 Temperature Pulse Rate 93 H 87 Respiratory Rate 19 18 Blood Pressure 76/43 L Pulse Oximetry 94 Oxygen Delivery Method Oxygen Flow Rate Fraction of Inspired Oxygen 09/19/24 13:45 09/19/24 13:50 09/19/24 13:50 Temperature Pulse Rate 90 Respiratory Rate 18 Blood Pressure 83/46 L 83/49 L Pulse Oximetry 100 Oxygen Delivery Method Oxygen Flow Rate Fraction of Inspired Oxygen 09/19/24 13:55 09/19/24 13:55 09/19/24 14:00 Temperature Pulse Rate 90 Respiratory Rate 16 Blood Pressure 74/47 L 81/53 L Pulse Oximetry 100 Oxygen Delivery Method Oxygen Flow Rate Fraction of Inspired Oxygen 09/19/24 14:00 09/19/24 14:05 09/19/24 14:05 Temperature Pulse Rate 84 82 Respiratory Rate 19 14 Blood Pressure 87/52 L Pulse Oximetry 100 100 Oxygen Delivery Method Oxygen Flow Rate Fraction of Inspired Oxygen 09/19/24 14:10 09/19/24 14:10 09/19/24 14:15 Temperature Pulse Rate 80 76 Respiratory Rate 19 19 Blood Pressure 89/55 L Pulse Oximetry 100 100 Oxygen Delivery Method Oxygen Flow Rate Fraction of Inspired Oxygen 09/19/24 14:15 09/19/24 14:15 09/19/24 14:20 Temperature Pulse Rate 74 Respiratory Rate 16 Blood Pressure 93/52 L 89/55 L Pulse Oximetry 100 Oxygen Delivery Method Oxygen Flow Rate Fraction of Inspired Oxygen 30 09/19/24 14:20 09/19/24 14:25 09/19/24 14:25 Temperature Pulse Rate 77 Respiratory Rate 16 Blood Pressure 91/53 L 105/58 L Pulse Oximetry 99 Oxygen Delivery Method Oxygen Flow Rate Fraction of Inspired Oxygen 09/19/24 14:30 09/19/24 14:30 09/19/24 14:35 Temperature Pulse Rate 77 Respiratory Rate 16 Blood Pressure 106/59 L 104/59 L Pulse Oximetry 100 Oxygen Delivery Method Oxygen Flow Rate Fraction of Inspired Oxygen 09/19/24 14:35 09/19/24 14:40 09/19/24 14:40 Temperature Pulse Rate 79 82 Respiratory Rate 16 Blood Pressure 115/57 L Pulse Oximetry 100 100 Oxygen Delivery Method Oxygen Flow Rate Fraction of Inspired Oxygen 09/19/24 14:45 09/19/24 14:45 09/19/24 14:47 Temperature Pulse Rate 80 Respiratory Rate 15 Blood Pressure 113/55 L 118/57 L Pulse Oximetry 100 Oxygen Delivery Method Oxygen Flow Rate Fraction of Inspired Oxygen 09/19/24 14:47 09/19/24 14:50 09/19/24 14:50 Temperature Pulse Rate 79 79 Respiratory Rate 17 16 Blood Pressure 117/57 L Pulse Oximetry 100 100 Oxygen Delivery Method Oxygen Flow Rate Fraction of Inspired Oxygen 09/19/24 14:55 09/19/24 14:55 09/19/24 15:00 Temperature Pulse Rate 81 Respiratory Rate Blood Pressure 121/57 L 109/54 L Pulse Oximetry Oxygen Delivery Method Oxygen Flow Rate Fraction of Inspired Oxygen 09/19/24 15:00 09/19/24 15:04 09/19/24 15:04 Temperature Pulse Rate 80 77 Respiratory Rate 12 Blood Pressure 118/69 Pulse Oximetry 95 91 Oxygen Delivery Method Oxygen Flow Rate Fraction of Inspired Oxygen 09/19/24 15:05 09/19/24 15:05 09/19/24 15:10 Temperature Pulse Rate 77 73 Respiratory Rate 16 15 Blood Pressure 110/59 L Pulse Oximetry 95 Oxygen Delivery Method Oxygen Flow Rate Fraction of Inspired Oxygen 09/19/24 15:10 09/19/24 15:15 09/19/24 15:15 Temperature Pulse Rate 68 Respiratory Rate 17 Blood Pressure 116/58 L 108/56 L Pulse Oximetry 93 Oxygen Delivery Method Oxygen Flow Rate Fraction of Inspired Oxygen 09/19/24 15:20 09/19/24 15:20 09/19/24 15:25 Temperature 98.2 F Pulse Rate 66 64 Respiratory Rate 17 17 Blood Pressure 103/55 L Pulse Oximetry 93 93 Oxygen Delivery Method Oxygen Flow Rate Fraction of Inspired Oxygen 09/19/24 15:25 09/19/24 15:30 09/19/24 15:30 Temperature 98.1 F Pulse Rate 64 Respiratory Rate 16 Blood Pressure 107/53 L 101/51 L Pulse Oximetry 97 Oxygen Delivery Method Oxygen Flow Rate Fraction of Inspired Oxygen 09/19/24 15:35 09/19/24 15:35 09/19/24 15:40 Temperature 98.1 F Pulse Rate 63 63 Respiratory Rate 16 16 Blood Pressure 108/53 L Pulse Oximetry Oxygen Delivery Method Oxygen Flow Rate Fraction of Inspired Oxygen 09/19/24 15:40 09/19/24 15:45 09/19/24 15:45 Temperature 98.1 F Pulse Rate 64 Respiratory Rate 19 Blood Pressure 98/52 L 102/59 L Pulse Oximetry 91 Oxygen Delivery Method Oxygen Flow Rate Fraction of Inspired Oxygen 09/19/24 15:50 09/19/24 15:50 09/19/24 15:55 Temperature 97.9 F Pulse Rate 62 Respiratory Rate 17 Blood Pressure 93/51 L 93/54 L Pulse Oximetry 95 Oxygen Delivery Method Oxygen Flow Rate Fraction of Inspired Oxygen 09/19/24 15:55 09/19/24 16:00 09/19/24 16:00 Temperature 97.9 F 97.9 F Pulse Rate 60 61 Respiratory Rate 17 15 Blood Pressure 94/53 L Pulse Oximetry 95 95 Oxygen Delivery Method Oxygen Flow Rate Fraction of Inspired Oxygen 09/19/24 16:05 09/19/24 16:05 09/19/24 16:10 Temperature 97.9 F 97.7 F Pulse Rate 61 63 Respiratory Rate 18 17 Blood Pressure 99/55 L Pulse Oximetry 95 95 Oxygen Delivery Method Oxygen Flow Rate Fraction of Inspired Oxygen 09/19/24 16:10 09/19/24 16:15 09/19/24 16:15 Temperature 97.7 F Pulse Rate 62 Respiratory Rate 16 Blood Pressure 100/54 L 98/53 L Pulse Oximetry 95 Oxygen Delivery Method Oxygen Flow Rate Fraction of Inspired Oxygen 09/19/24 16:20 09/19/24 16:20 09/19/24 16:25 Temperature 97.7 F Pulse Rate 62 Respiratory Rate 16 Blood Pressure 100/56 L 100/55 L Pulse Oximetry 96 Oxygen Delivery Method Oxygen Flow Rate Fraction of Inspired Oxygen 09/19/24 16:25 09/19/24 16:30 09/19/24 16:30 Temperature 97.7 F 97.7 F Pulse Rate 62 63 Respiratory Rate 16 15 Blood Pressure 103/57 L Pulse Oximetry 96 96 Oxygen Delivery Method Oxygen Flow Rate Fraction of Inspired Oxygen 09/19/24 16:35 09/19/24 16:35 09/19/24 16:40 Temperature 97.7 F 97.5 F L Pulse Rate 64 66 Respiratory Rate 15 15 Blood Pressure 103/59 L Pulse Oximetry 96 95 Oxygen Delivery Method Oxygen Flow Rate Fraction of Inspired Oxygen 09/19/24 16:40 09/19/24 16:45 09/19/24 16:45 Temperature 97.5 F L Pulse Rate 66 Respiratory Rate 15 Blood Pressure 105/59 L 111/51 L Pulse Oximetry 95 Oxygen Delivery Method Oxygen Flow Rate Fraction of Inspired Oxygen 09/19/24 16:50 09/19/24 16:50 09/19/24 16:55 Temperature 97.5 F L 97.5 F L Pulse Rate 69 67 Respiratory Rate 16 16 Blood Pressure 117/53 L Pulse Oximetry 93 96 Oxygen Delivery Method Oxygen Flow Rate Fraction of Inspired Oxygen 09/19/24 16:55 09/19/24 17:00 09/19/24 17:00 Temperature 97.5 F L Pulse Rate 66 Respiratory Rate 16 Blood Pressure 114/56 L 111/55 L Pulse Oximetry 94 Oxygen Delivery Method Oxygen Flow Rate Fraction of Inspired Oxygen 09/19/24 17:05 09/19/24 17:05 09/19/24 17:10 Temperature 97.3 F L 97.3 F L Pulse Rate 65 65 Respiratory Rate 15 15 Blood Pressure 115/58 L Pulse Oximetry 95 95 Oxygen Delivery Method Oxygen Flow Rate Fraction of Inspired Oxygen 09/19/24 17:10 09/19/24 17:15 09/19/24 17:15 Temperature 97.3 F L Pulse Rate 64 Respiratory Rate 15 Blood Pressure 113/56 L 111/58 L Pulse Oximetry 95 Oxygen Delivery Method Oxygen Flow Rate Fraction of Inspired Oxygen 09/19/24 17:20 09/19/24 17:20 09/19/24 17:25 Temperature 97.3 F L Pulse Rate 68 Respiratory Rate 16 Blood Pressure 129/78 114/67 Pulse Oximetry Oxygen Delivery Method Oxygen Flow Rate Fraction of Inspired Oxygen 09/19/24 17:25 09/19/24 18:35 Temperature 97.3 F L Pulse Rate 68 Respiratory Rate 24 Blood Pressure 120/61 Pulse Oximetry 93 Oxygen Delivery Method Oxygen Flow Rate Fraction of Inspired Oxygen 30
[2024-09-19] MEDS: SODIUM CHLORIDE 0.9% 1,000 ML 100 ML IV (18:50)
--- NOTE | 2024-09-19 19:06 | P.HP_ITS ---
History of Present Illness History of Present Illness Date Patient Seen: 09/19/24 Time Patient Seen: 19:07 Chief complaint: SOB Narrative: 44-year-old female with a history of hypertension, asthma, morbid obesity, chronic pain, fibromyalgia, limited mobility, multiple psychiatric concerns by chart review. Patient asleep/obtunded on initial evaluation and does not wake to moderate stimuli, no family available for additional history so majority of information per ER physician's note. Presented to the ER this afternoon due to adult daughters concern for low oxygen level and weakness at home. She apparently does have oxygen available at home for nighttime use. In the ER she was minimally engaged with a flat affect and stated that she feels poorly but was unable to specify anything beyond that. Denied shortness of breath, chest pain, abdominal pain. Was noted to have significant intertrigo and cellulitis of the breasts and left axilla, apparently told ER physician this is normal for her. ER workup notable for WBC 16.9 with neutrophilic predominance, platelets 413, BUN 21, creatinine 1.96, GFR 32, lactate 2.9. VBG 7.36/61.3/50/35. EKG sinus tach without ischemic changes. Troponin negative, BNP normal, procalcitonin negative, UA without evidence of infection, rapid flu/RSV/SARS/CoV-2 negative. She was noted to be hypotensive and clinically dehydrated, given 2 L IV fluid bolus while CVC was placed, then given additional 30 cc/kilos IV bolus per sepsis protocol. She was started on pressors, broad-spectrum antibiotics, Sanchez catheter was placed. BiPAP was started tolerated well. Blood cultures were drawn and broad-spectrum antibiotics started. [facility] Medical History Lumbar radiculopathy Cervical radiculopathy Low back pain Thoracic back pain Shoulder pain Neck pain Chronic migraine [place] use Suicide attempt by acetaminophen overdose Aspirin overdose Essential (primary) hypertension Tachycardia Rheumatoid arthritis Chronic cough Asthma Hayfever Agoraphobia Panic attacks PTSD (post-traumatic stress disorder) Depression Anxiety Migraines Chronic headaches Bursitis of left hip Scoliosis Chronic back pain Corneal pigmentation of both eyes MRSA infection Anemia Vertigo Tinnitus Recurrent sinusitis History of recurrent ear infection Hearing loss Partial blindness Interstitial cystitis Painful menstrual periods Ovarian cyst Irregular periods/menstrual cycles History of heavy periods Endometriosis Abnormal Pap smear of cervix Kidney infection (2002) Frequent UTI BRCA negative PUD (peptic ulcer disease) IBS (irritable bowel syndrome) Hemorrhoids GI bleeding GERD (gastroesophageal reflux disease) Gastroparesis Gastric ulcer Anal fissure (01/24/12) History of tilt table evaluation (05/02/15) Vaginal delivery Asthma with allergic rhinitis Fibromyalgia Nondiabetic gastroparesis (01/04/16) Irritable bowel syndrome with diarrhea (01/04/16) Chronic interstitial cystitis (01/04/16) History of partial hysterectomy (01/04/16) History of fracture of hip (01/04/16) History of gastrointestinal hemorrhage (01/04/16) Surgical History History of colonoscopy (01/10/15) History of endoscopy (01/10/15) History of endoscopy (05/04/07) History of rectal surgery (01/24/12) Anesthesia complication History of hip surgery (12/13/92) Status post laparoscopy (05/04/07) History of bladder surgery (02/2001) Status post laparoscopy (1999) History of third molar tooth extraction (1997) History of bladder suspension procedure (06/14/13) Status post dilation and curettage (10/2009) Status post laparoscopic cholecystectomy (03/11/06) Status post appendectomy (08/1996) Status post hysterectomy (05/07/10) Family History Brother Age: 48 Back pain Brother Age: 47 Migraines Child Age: 21 Mental health problem Child Age: 20 Asperger syndrome Father Age: 71 Anger Mother Age: 65 Hypothyroidism Anxiety Stroke Sister Age: 48 Thyroid cancer Brain tumor Grandfather No problems noted. Grandmother Brain tumor Grandfather No problems noted. Grandmother Ovarian cancer Social History marital status: number of children: 2 household members: children lives independently: Yes caregiver/support person: Yes housing: house Smoking Status: Never smoker second hand exposure: No alcohol intake: current substance use type: does not use Meds Home Medications and Allergies Home Medications Medication Instructions Recorded Confirmed Type magnesium oxide See Rx Instructions .Route 12/22/20 10/29/23 Rx .COMPLEX #180 tabs levalbuterol HCl 1.25 mg/3 mL See Rx Instructions .Route 04/09/21 10/29/23 Rx solution for nebulization .COMPLEX #300 mL nystatin 100,000 unit/gram topical 1 applic topical TID #60 grams 06/04/21 10/29/23 Rx powder cholecalciferol (vitamin D3) 100 2,000 unit PO BID #180 caps 11/26/21 10/29/23 Rx mcg (4,000 unit) capsule albuterol sulfate 90 mcg/actuation 2 puff inhalation Q4-6H PRN 03/19/22 10/29/23 Rx aerosol inhaler (ProAir HFA) Shortness Of Breath #8.5 grams melatonin 3 mg tablet,extended See Rx Instructions PO .COMPLEX 07/05/22 10/29/23 Rx release #90 tabs hvqyhmk-rreemjcgtlayd-mqfwhdet 250 1 tab PO Q4-6H PRN Migraine 09/18/22 10/29/23 History mg-250 mg-65 mg tablet (Excedrin Headache Extra Strength) galcanezumab-gnlm 120 mg/mL 120 mg SUBCUT QMONTH 11/28/22 10/29/23 History subcutaneous syringe (Emgality) electronic blood pressure cuff #1 ea 12/09/22 10/29/23 Rx mechanical lift chair #1 ea 12/09/22 10/29/23 Rx nystatin 100,000 unit/gram topical See Rx Instructions .Route 01/15/23 10/29/23 Rx ointment .COMPLEX #30 grams epinephrine 0.3 mg/0.3 mL See Rx Instructions .Route 01/20/23 10/29/23 Rx injection, auto-injector .COMPLEX #2 ea elevated toilet seat #1 ea 02/10/23 10/29/23 Rx ivabradine 5 mg tablet (Corlanor) 5 mg PO BID 07/04/23 10/29/23 History tramadol 50 mg tablet 50 mg PO Q8H PRN pain #7 tabs 10/04/23 10/29/23 Rx lidocaine 5 % topical ointment 1 applic topical BID PRN for pain 12/04/23 Rx #49.222 grams Lamictal 200 mg tablet 200 mg PO DAILY #90 tabs 01/05/24 01/05/24 Rx (lamotrigine) fluticasone furoate 200 1 inh PO ONCE PM #120 ea 02/26/24 Rx mcg-vilanterol 25 mcg/dose inhalation powder (Breo Ellipta) vortioxetine 20 mg tablet 20 mg PO DAILY #90 tabs 03/01/24 03/01/24 Rx (Trintellix) lactulose 20 gram/30 mL oral 40 g (60 mL) PO BID #4,200 mL 03/12/24 Rx solution omeprazole 40 mg capsule,delayed 40 mg PO BID #180 caps 03/18/24 Rx release umeclidinium 62.5 mcg/actuation 1 inh PO DAILY #90 ea 03/18/24 Rx blister powder for inhalation (Incruse Ellipta) methylprednisolone 4 mg tablets in See Rx Instructions PO .COMPLEX 04/01/24 Rx a dose pack (Medrol (Teofilo)) #21 ea dupilumab 300 mg/2 mL subcutaneous 300 mg (2 mL) SUBCUT Q2W #4 mL 06/03/24 Rx pen injector ([employer]) montelukast 10 mg tablet 10 mg PO QPM #90 tabs 06/10/24 Rx diazepam 5 mg tablet 5 mg PO TID #90 tabs 06/11/24 Rx hydroxyzine HCl 50 mg tablet 50 mg PO QID PRN anxiety #360 tabs 07/06/24 07/06/24 Rx pregabalin 150 mg capsule (Lyrica) 150 mg PO BID #60 caps 07/23/24 Rx lisinopril 40 mg tablet 40 mg PO DAILY #90 tabs 08/02/24 Rx ondansetron 8 mg disintegrating See Rx Instructions .Route 08/02/24 Rx tablet .COMPLEX #90 tabs scopolamine base 1 mg over 3 days 1 patch transdermal Q3D PRN excess 08/02/24 08/02/24 Rx transdermal patch salivation #10 ea amoxicillin 875 mg-potassium 1 tab PO BID #14 tabs 08/10/24 Rx clavulanate 125 mg tablet baclofen 20 mg tablet 40 mg (2 x 20 mg) PO QPM #60 tabs 09/06/24 Rx prazosin 2 mg capsule 4 mg (2 x 2 mg) PO ONCE PM #200 09/16/24 09/16/24 Rx caps Allergies Allergy/AdvReac Type Severity Reaction Status Date / Time bupropion [BUPROPION] Allergy Mild facial rash Verified 10/29/23 11:15 hydrocodone [HYDROCODONE] Allergy Mild rash Verified 10/29/23 11:15 iodine [IODINE] Allergy Mild edema Verified 10/29/23 11:15 lithium AdvReac Severe suicidal Verified 10/29/23 11:15 thoughts lorazepam AdvReac Severe worsens Verified 10/29/23 11:15 panic trazodone AdvReac Severe suicidal Verified 10/29/23 11:15 thoughts diphenhydramine AdvReac Intermediate panic Verified 10/29/23 11:15 [From Benadryl] attacks Review of Systems Review of Systems ROS: Yes unobtainable due to mental status Exam Vital Signs (past 8 hours): - 09/19/24 12:59 09/19/24 13:07 09/19/24 13:07 Temperature 97.0 F L Pulse Rate 100 H 97 H Respiratory Rate 24 22 Blood Pressure 99/49 L Pulse Oximetry 100 99 Oxygen Delivery Method Aerosol Mask Oxygen Flow Rate 4 Fraction of Inspired Oxygen 09/19/24 13:18 09/19/24 13:18 09/19/24 13:19 Temperature Pulse Rate 97 H Respiratory Rate 16 Blood Pressure 91/48 L 86/42 L Pulse Oximetry Oxygen Delivery Method Oxygen Flow Rate Fraction of Inspired Oxygen 09/19/24 13:19 09/19/24 13:20 09/19/24 13:20 Temperature Pulse Rate 99 H 98 H Respiratory Rate 20 20 Blood Pressure 78/40 L Pulse Oximetry 91 94 Oxygen Delivery Method Oxygen Flow Rate Fraction of Inspired Oxygen 09/19/24 13:21 09/19/24 13:21 09/19/24 13:22 Temperature Pulse Rate 100 H Respiratory Rate Blood Pressure 85/58 L 85/58 L Pulse Oximetry Oxygen Delivery Method Oxygen Flow Rate Fraction of Inspired Oxygen 09/19/24 13:22 09/19/24 13:24 09/19/24 13:24 Temperature Pulse Rate 100 H Respiratory Rate Blood Pressure 91/65 91/65 Pulse Oximetry 94 Oxygen Delivery Method Oxygen Flow Rate Fraction of Inspired Oxygen 09/19/24 13:24 09/19/24 13:25 09/19/24 13:25 Temperature Pulse Rate 102 H 100 H Respiratory Rate 22 26 H Blood Pressure 82/48 L Pulse Oximetry 93 Oxygen Delivery Method Oxygen Flow Rate Fraction of Inspired Oxygen 09/19/24 13:26 09/19/24 13:26 09/19/24 13:30 Temperature Pulse Rate 102 H 97 H Respiratory Rate 18 Blood Pressure 82/48 L Pulse Oximetry 91 95 Oxygen Delivery Method Oxygen Flow Rate Fraction of Inspired Oxygen 09/19/24 13:30 09/19/24 13:30 09/19/24 13:35 Temperature Pulse Rate 95 H Respiratory Rate 19 Blood Pressure 78/48 L 78/48 L Pulse Oximetry 94 Oxygen Delivery Method Oxygen Flow Rate Fraction of Inspired Oxygen 09/19/24 13:35 09/19/24 13:36 09/19/24 13:36 Temperature Pulse Rate 95 H Respiratory Rate 19 Blood Pressure 79/45 L 75/41 L Pulse Oximetry 94 Oxygen Delivery Method Oxygen Flow Rate Fraction of Inspired Oxygen 09/19/24 13:40 09/19/24 13:40 09/19/24 13:45 Temperature Pulse Rate 93 H 87 Respiratory Rate 19 18 Blood Pressure 76/43 L Pulse Oximetry 94 Oxygen Delivery Method Oxygen Flow Rate Fraction of Inspired Oxygen 09/19/24 13:45 09/19/24 13:50 09/19/24 13:50 Temperature Pulse Rate 90 Respiratory Rate 18 Blood Pressure 83/46 L 83/49 L Pulse Oximetry 100 Oxygen Delivery Method Oxygen Flow Rate Fraction of Inspired Oxygen 09/19/24 13:55 09/19/24 13:55 09/19/24 14:00 Temperature Pulse Rate 90 Respiratory Rate 16 Blood Pressure 74/47 L 81/53 L Pulse Oximetry 100 Oxygen Delivery Method Oxygen Flow Rate Fraction of Inspired Oxygen 09/19/24 14:00 09/19/24 14:05 09/19/24 14:05 Temperature Pulse Rate 84 82 Respiratory Rate 19 14 Blood Pressure 87/52 L Pulse Oximetry 100 100 Oxygen Delivery Method Oxygen Flow Rate Fraction of Inspired Oxygen 09/19/24 14:10 09/19/24 14:10 09/19/24 14:15 Temperature Pulse Rate 80 76 Respiratory Rate 19 19 Blood Pressure 89/55 L Pulse Oximetry 100 100 Oxygen Delivery Method Oxygen Flow Rate Fraction of Inspired Oxygen 09/19/24 14:15 09/19/24 14:15 09/19/24 14:20 Temperature Pulse Rate 74 Respiratory Rate 16 Blood Pressure 93/52 L 89/55 L Pulse Oximetry 100 Oxygen Delivery Method Oxygen Flow Rate Fraction of Inspired Oxygen 30 09/19/24 14:20 09/19/24 14:25 09/19/24 14:25 Temperature Pulse Rate 77 Respiratory Rate 16 Blood Pressure 91/53 L 105/58 L Pulse Oximetry 99 Oxygen Delivery Method Oxygen Flow Rate Fraction of Inspired Oxygen 09/19/24 14:30 09/19/24 14:30 09/19/24 14:35 Temperature Pulse Rate 77 Respiratory Rate 16 Blood Pressure 106/59 L 104/59 L Pulse Oximetry 100 Oxygen Delivery Method Oxygen Flow Rate Fraction of Inspired Oxygen 09/19/24 14:35 09/19/24 14:40 09/19/24 14:40 Temperature Pulse Rate 79 82 Respiratory Rate 16 Blood Pressure 115/57 L Pulse Oximetry 100 100 Oxygen Delivery Method Oxygen Flow Rate Fraction of Inspired Oxygen 09/19/24 14:45 09/19/24 14:45 09/19/24 14:47 Temperature Pulse Rate 80 Respiratory Rate 15 Blood Pressure 113/55 L 118/57 L Pulse Oximetry 100 Oxygen Delivery Method Oxygen Flow Rate Fraction of Inspired Oxygen 09/19/24 14:47 09/19/24 14:50 09/19/24 14:50 Temperature Pulse Rate 79 79 Respiratory Rate 17 16 Blood Pressure 117/57 L Pulse Oximetry 100 100 Oxygen Delivery Method Oxygen Flow Rate Fraction of Inspired Oxygen 09/19/24 14:55 09/19/24 14:55 09/19/24 15:00 Temperature Pulse Rate 81 Respiratory Rate Blood Pressure 121/57 L 109/54 L Pulse Oximetry Oxygen Delivery Method Oxygen Flow Rate Fraction of Inspired Oxygen 09/19/24 15:00 09/19/24 15:04 09/19/24 15:04 Temperature Pulse Rate 80 77 Respiratory Rate 12 Blood Pressure 118/69 Pulse Oximetry 95 91 Oxygen Delivery Method Oxygen Flow Rate Fraction of Inspired Oxygen 09/19/24 15:05 09/19/24 15:05 09/19/24 15:10 Temperature Pulse Rate 77 73 Respiratory Rate 16 15 Blood Pressure 110/59 L Pulse Oximetry 95 Oxygen Delivery Method Oxygen Flow Rate Fraction of Inspired Oxygen 09/19/24 15:10 09/19/24 15:15 09/19/24 15:15 Temperature Pulse Rate 68 Respiratory Rate 17 Blood Pressure 116/58 L 108/56 L Pulse Oximetry 93 Oxygen Delivery Method Oxygen Flow Rate Fraction of Inspired Oxygen 09/19/24 15:20 09/19/24 15:20 09/19/24 15:25 Temperature 98.2 F Pulse Rate 66 64 Respiratory Rate 17 17 Blood Pressure 103/55 L Pulse Oximetry 93 93 Oxygen Delivery Method Oxygen Flow Rate Fraction of Inspired Oxygen 09/19/24 15:25 09/19/24 15:30 09/19/24 15:30 Temperature 98.1 F Pulse Rate 64 Respiratory Rate 16 Blood Pressure 107/53 L 101/51 L Pulse Oximetry 97 Oxygen Delivery Method Oxygen Flow Rate Fraction of Inspired Oxygen 09/19/24 15:35 09/19/24 15:35 09/19/24 15:40 Temperature 98.1 F Pulse Rate 63 63 Respiratory Rate 16 16 Blood Pressure 108/53 L Pulse Oximetry Oxygen Delivery Method Oxygen Flow Rate Fraction of Inspired Oxygen 09/19/24 15:40 09/19/24 15:45 09/19/24 15:45 Temperature 98.1 F Pulse Rate 64 Respiratory Rate 19 Blood Pressure 98/52 L 102/59 L Pulse Oximetry 91 Oxygen Delivery Method Oxygen Flow Rate Fraction of Inspired Oxygen 09/19/24 15:50 09/19/24 15:50 09/19/24 15:55 Temperature 97.9 F Pulse Rate 62 Respiratory Rate 17 Blood Pressure 93/51 L 93/54 L Pulse Oximetry 95 Oxygen Delivery Method Oxygen Flow Rate Fraction of Inspired Oxygen 09/19/24 15:55 09/19/24 16:00 09/19/24 16:00 Temperature 97.9 F 97.9 F Pulse Rate 60 61 Respiratory Rate 17 15 Blood Pressure 94/53 L Pulse Oximetry 95 95 Oxygen Delivery Method Oxygen Flow Rate Fraction of Inspired Oxygen 09/19/24 16:05 09/19/24 16:05 09/19/24 16:10 Temperature 97.9 F 97.7 F Pulse Rate 61 63 Respiratory Rate 18 17 Blood Pressure 99/55 L Pulse Oximetry 95 95 Oxygen Delivery Method Oxygen Flow Rate Fraction of Inspired Oxygen 09/19/24 16:10 09/19/24 16:15 09/19/24 16:15 Temperature 97.7 F Pulse Rate 62 Respiratory Rate 16 Blood Pressure 100/54 L 98/53 L Pulse Oximetry 95 Oxygen Delivery Method Oxygen Flow Rate Fraction of Inspired Oxygen 09/19/24 16:20 09/19/24 16:20 09/19/24 16:25 Temperature 97.7 F Pulse Rate 62 Respiratory Rate 16 Blood Pressure 100/56 L 100/55 L Pulse Oximetry 96 Oxygen Delivery Method Oxygen Flow Rate Fraction of Inspired Oxygen 09/19/24 16:25 09/19/24 16:30 09/19/24 16:30 Temperature 97.7 F 97.7 F Pulse Rate 62 63 Respiratory Rate 16 15 Blood Pressure 103/57 L Pulse Oximetry 96 96 Oxygen Delivery Method Oxygen Flow Rate Fraction of Inspired Oxygen 09/19/24 16:35 09/19/24 16:35 09/19/24 16:40 Temperature 97.7 F 97.5 F L Pulse Rate 64 66 Respiratory Rate 15 15 Blood Pressure 103/59 L Pulse Oximetry 96 95 Oxygen Delivery Method Oxygen Flow Rate Fraction of Inspired Oxygen 09/19/24 16:40 09/19/24 16:45 09/19/24 16:45 Temperature 97.5 F L Pulse Rate 66 Respiratory Rate 15 Blood Pressure 105/59 L 111/51 L Pulse Oximetry 95 Oxygen Delivery Method Oxygen Flow Rate Fraction of Inspired Oxygen 09/19/24 16:50 09/19/24 16:50 09/19/24 16:55 Temperature 97.5 F L 97.5 F L Pulse Rate 69 67 Respiratory Rate 16 16 Blood Pressure 117/53 L Pulse Oximetry 93 96 Oxygen Delivery Method Oxygen Flow Rate Fraction of Inspired Oxygen 09/19/24 16:55 09/19/24 17:00 09/19/24 17:00 Temperature 97.5 F L Pulse Rate 66 Respiratory Rate 16 Blood Pressure 114/56 L 111/55 L Pulse Oximetry 94 Oxygen Delivery Method Oxygen Flow Rate Fraction of Inspired Oxygen 09/19/24 17:05 09/19/24 17:05 09/19/24 17:10 Temperature 97.3 F L 97.3 F L Pulse Rate 65 65 Respiratory Rate 15 15 Blood Pressure 115/58 L Pulse Oximetry 95 95 Oxygen Delivery Method Oxygen Flow Rate Fraction of Inspired Oxygen 09/19/24 17:10 09/19/24 17:15 09/19/24 17:15 Temperature 97.3 F L Pulse Rate 64 Respiratory Rate 15 Blood Pressure 113/56 L 111/58 L Pulse Oximetry 95 Oxygen Delivery Method Oxygen Flow Rate Fraction of Inspired Oxygen 09/19/24 17:20 09/19/24 17:20 09/19/24 17:25 Temperature 97.3 F L Pulse Rate 68 Respiratory Rate 16 Blood Pressure 129/78 114/67 Pulse Oximetry Oxygen Delivery Method Oxygen Flow Rate Fraction of Inspired Oxygen 09/19/24 17:25 09/19/24 17:30 09/19/24 17:30 Temperature 97.3 F L 97.3 F L Pulse Rate 68 70 Respiratory Rate 24 21 Blood Pressure 118/70 Pulse Oximetry 93 91 Oxygen Delivery Method Oxygen Flow Rate Fraction of Inspired Oxygen 09/19/24 17:35 09/19/24 17:35 09/19/24 17:40 Temperature 97.5 F L Pulse Rate 66 Respiratory Rate 17 Blood Pressure 120/69 121/67 Pulse Oximetry 92 Oxygen Delivery Method Oxygen Flow Rate Fraction of Inspired Oxygen 09/19/24 17:40 09/19/24 17:45 09/19/24 17:45 Temperature 97.5 F L 97.5 F L Pulse Rate 69 67 Respiratory Rate 26 H 18 Blood Pressure 125/67 Pulse Oximetry 90 L 90 L Oxygen Delivery Method Oxygen Flow Rate Fraction of Inspired Oxygen 09/19/24 17:50 09/19/24 17:50 09/19/24 17:55 Temperature 97.5 F L 97.7 F Pulse Rate 65 66 Respiratory Rate 14 18 Blood Pressure 120/66 Pulse Oximetry 93 91 Oxygen Delivery Method Oxygen Flow Rate Fraction of Inspired Oxygen 09/19/24 17:55 09/19/24 18:00 09/19/24 18:00 Temperature 97.7 F Pulse Rate 63 Respiratory Rate 19 Blood Pressure 115/66 116/63 Pulse Oximetry 92 Oxygen Delivery Method Oxygen Flow Rate Fraction of Inspired Oxygen 09/19/24 18:05 09/19/24 18:05 09/19/24 18:10 Temperature 97.7 F Pulse Rate 58 L Respiratory Rate 18 Blood Pressure 122/69 127/70 Pulse Oximetry 90 L Oxygen Delivery Method Oxygen Flow Rate Fraction of Inspired Oxygen 09/19/24 18:10 09/19/24 18:20 09/19/24 18:26 Temperature 97.7 F 97.5 F L Pulse Rate 64 71 Respiratory Rate 14 15 Blood Pressure 113/60 113/60 Pulse Oximetry 91 100 Oxygen Delivery Method Oxygen Flow Rate Fraction of Inspired Oxygen 30 09/19/24 18:26 09/19/24 18:30 09/19/24 18:30 Temperature Pulse Rate 69 69 Respiratory Rate 19 Blood Pressure 120/61 Pulse Oximetry 100 100 Oxygen Delivery Method Oxygen Flow Rate Fraction of Inspired Oxygen 09/19/24 18:35 09/19/24 18:48 09/19/24 18:48 Temperature Pulse Rate 77 Respiratory Rate 17 Blood Pressure 120/61 113/53 L Pulse Oximetry 100 Oxygen Delivery Method Oxygen Flow Rate Fraction of Inspired Oxygen 30 09/19/24 19:00 09/19/24 19:00 Temperature Pulse Rate 74 Respiratory Rate 17 Blood Pressure 114/53 L Pulse Oximetry 100 Oxygen Delivery Method Oxygen Flow Rate Fraction of Inspired Oxygen Fraction of Inspired Oxygen 30 Oxygen Delivery Method Aerosol Mask Oxygen Flow Rate 4 Narrative Exam Narrative: General: Pleasant, NAD HEENT: NC/AT, BiPAP mask in place Chest: Intertrigo under both breasts with drainage under the right, erythema extending over sternum and upper portion of the right breast; some shallow ulceration over upper aspect of left breast Significant intertrigo in the left axilla without obvious skin breakdown CV: RRR, normal S1-S2, no m/g/r Resp: CTAB, comfortable WOB Abd: Soft, obese, NTND, +BS Extremities: Leans toward her left side when asleep with significant left arm compression and has subsequent left hand swelling, 1+ LE edema bilaterally with chronic venous stasis changes, no evidence of cellulitis Skin: Multiple areas of significant intertrigo, cellulitis over the right breast, concern for cellulitis developing around the umbilicus Neurologic: Globally slowed, flat affect, slight confusion per ER documentation; not responsive to stimulus on exam in ICU Objective Labs 09/19/24 13:16 09/19/24 13:16 Labs: Laboratory Results - last 24 hr 09/19/24 09/19/24 09/19/24 13:16 13:57 14:35 WBC 16.9 H RBC 4.56 Hgb 12.4 Hct 38.8 MCV 85.1 MCH 27.2 MCHC 32.0 RDW 14.4 Plt Count 413 H Neut % (Auto) 69.8 Lymph % (Auto) 21.9 L [place] % (Auto) 6.1 Eos % (Auto) 1.7 L Baso % (Auto) 0.5 Neut # (Auto) 49453 H Lymph # (Auto) 3700 [place] # (Auto) 1000 H Eos # (Auto) 300 Baso # (Auto) 100 PT 13.3 H INR 1.2 APTT 38 H VBG pH 7.36 VBG pCO2 61.3 H VBG pO2 58 H VBG HCO3 35 H VBG Total CO2 34 H VBG O2 Saturation 88 H VBG Base Excess 7.4 H FiO2 % 32 % Sodium 136 L Potassium 4.2 Chloride 96 L Carbon Dioxide 32 BUN 21 H Creatinine 1.96 H Estimated GFR 32 L BUN/Creatinine Ratio 10.7 Glucose 135 H Lactate 2.9 H Calcium 9.1 Total Bilirubin 0.4 AST 25 ALT 25 Alkaline Phosphatase 74 Total Creatine Kinase 52 Troponin I < 0.012 NT-Pro-B Natriuret Pep 69 Total Protein 7.6 Albumin 4.3 Globulin 3.3 Albumin/Globulin Ratio 1.3 Procalcitonin 0.135 Urine Color Yellow Urine Appearance Sl cloudy Urine pH 5.0 Ur Specific [place] >=1.030 H Urine Protein 1+ H Urine Glucose (UA) Negative Urine Ketones Trace H Urine Occult Blood Negative Urine Nitrate Negative Urine Bilirubin 1+ H Ur Bilirubin Confirm Negative Urine Urobilinogen 1.0 Ur Leukocyte Esterase Negative Urine RBC 0-1/hpf Urine WBC 0-1/hpf Ur Squamous Epith Cells 0-1 /hpf Urine Bacteria Occasional (0-1) Hyaline Casts 1-5/lpf Urine Mucus 1+ H Ur Culture Indicated? Cult not indicated Vol Urine Centrifuged 10ml (spun) SARS-CoV-2 (PCR) Negative Influenza A (RT-PCR) Flu a negative Influenza B (RT-PCR) Flu b negative RSV (PCR) Negative 09/19/24 09/19/24 15:15 15:54 WBC RBC Hgb Hct MCV MCH MCHC RDW Plt Count Neut % (Auto) Lymph % (Auto) [place] % (Auto) Eos % (Auto) Baso % (Auto) Neut # (Auto) Lymph # (Auto) [place] # (Auto) Eos # (Auto) Baso # (Auto) PT INR APTT VBG pH 7.36 VBG pCO2 52.3 H VBG pO2 56 H VBG HCO3 30 H VBG Total CO2 29 VBG O2 Saturation 87 H VBG Base Excess 3.3 FiO2 % 30 % Sodium Potassium Chloride Carbon Dioxide BUN Creatinine Estimated GFR BUN/Creatinine Ratio Glucose Lactate 0.9 Calcium Total Bilirubin AST ALT Alkaline Phosphatase Total Creatine Kinase Troponin I NT-Pro-B Natriuret Pep Total Protein Albumin Globulin Albumin/Globulin Ratio Procalcitonin Urine Color Urine Appearance Urine pH Ur Specific [place] Urine Protein Urine Glucose (UA) Urine Ketones Urine Occult Blood Urine Nitrate Urine Bilirubin Ur Bilirubin Confirm Urine Urobilinogen Ur Leukocyte Esterase Urine RBC Urine WBC Ur Squamous Epith Cells Urine Bacteria Hyaline Casts Urine Mucus Ur Culture Indicated? Vol Urine Centrifuged SARS-CoV-2 (PCR) Influenza A (RT-PCR) Influenza B (RT-PCR) RSV (PCR) Assessment & Plan Assessment and plan (1) Severe sepsis: Status: Acute (2) Cellulitis: Qualifiers: Site of cellulitis: trunk Site of cellulitis of trunk: chest wall Qualified Code(s): L03.313 - Cellulitis of chest wall Status: Acute (3) Acute hypercapnic respiratory failure: Status: Acute (4) Chronic respiratory failure: Qualifiers: Respiratory failure complication: hypoxia Qualified Code(s): J96.11 - Chronic respiratory failure with hypoxia Status: Acute (5) Asthma: Problem details: Severe asthma Qualifiers: Asthma severity: moderate Asthma persistence: persistent Asthma complication type: uncomplicated Qualified Code(s): J45.40 - Moderate persistent asthma, uncomplicated Status: Chronic (6) Acute kidney injury: Status: Acute (7) Essential (primary) hypertension: Status: Acute (8) Altered mental status: Qualifiers: Altered mental status type: somnolence Qualified Code(s): R40.0 - Somnolence Status: Acute (9) Left arm swelling: Status: Acute (10) Generalized anxiety disorder with panic attacks: Status: Chronic (11) PTSD (post-traumatic stress disorder): Status: Chronic (12) Major depressive disorder, recurrent severe without psychotic features: Status: Chronic Assessment & Plan narrative: #severe sepsis #cellulitis of breasts Met sepsis criteria with elevated rate, respiratory rate, leukocytosis, elevated lactate, hypotension, and altered mental status. CXR without or other respiratory pathology. UA negative for evidence of infection. -S/p 4L IVF bolus in ER -mIVF: NS @100 cc/hr to avoid fluid overload -continue levophed, titrate prn to maintain MAP >65 -continue cefepime + vancomycin per pharmacy -blood cultures drawn and pending -eICU consult -wound care consult for intertrigo of both breasts and left axilla #acute on chronic hypercapnic respiratory failure #asthma Poor ventilation due to infection and altered mental status in the context of baseline chronic respiratory failure with intermittent home O2 dependence. Initial CO2 61.3, improved to 52.3 with initiation of BiPAP. -continue BiPAP -eICU consult #KAREN Due to severe dehydration requiring a total of more than 4 L IV fluid bolus in ER. -IV fluids as above -avoid nephrotoxic agents -trend BMP #HTN -hold home lisinopril given hypotension and KAREN #altered mental status Likely due to combination of fatigue and hypercapnia. CO2 improving with initiation of BiPAP. CT head negative for intracranial pathology. -monitor #left arm swelling Likely positional given left word lean while asleep on back and reported history of sleeping on left side. Vascular ultrasound negative for evidence of DVT. #anxiety with panic attacks #depression #PTSD -continue psychiatric meds as prescribed -convert to IV as needed Diet: NPO GI ppx: IV PPI DVT ppx: Lovenox, SCDs Code: FULL PCP: Segundo MDM: Diana Leroy (mother, ) Dispo: ICU Time-Based Coding :: 60 minutes spent with patient and on the chart (including review of chart, obtaining history, exam, reviewing outside data, placing orders, documenting exam and treatment plan, and counseling patient) on 09/19/2024. PROFEE Charge Codes Critical Care: 95043
[2024-09-19 20:02] LABS: MRSA (Nasal) PCR NOT DETECTED (Not Detect)
[2024-09-19] MEDS: VANCOMYCIN 2,000 MG/400 ML PIGGYBACK 200 MG IV (20:13)
[2024-09-19] MEDS: diazePAM 10 MG/2 ML SYRINGE 5 MG IV (22:00)
[2024-09-19] MEDS: PRAZOSIN 1 MG CAPSULE 4 MG PO (22:00)
[2024-09-19] MEDS: MELATONIN 3 MG TABLET PO (22:00)
[2024-09-19] MEDS: PREGABALIN 75 MG CAPSULE 150 MG PO (22:00)
--- NOTE | 2024-09-19 22:14 | RT ---
2142 - Pt taking break from BiPAP. She is awake, alert and oriented. RT placed pt on 2L NC. RN Meli notified.
--- NOTE | 2024-09-19 22:54 | P.TELICUCN_ITS ---
History of Present Illness Consult details IF CAMERA ACTIVATED, patient seen via real-time interactive audiovisual communication: Camera activated Chief complaint: SOB Consent obtained for tele-monogram operator care: Yes Patient Location: ICU Provider location (State): [place] Other participants/roles: None Narrative: 44 yo F w/ PMHx of HTN, asthma, morbid obesity, chronic pain/fibromyalgia, PTSD,/anxiety/depression, chronic hypoxic/hypercarbic respiratory failure on an unknown rate of home O2 admitted w/ acute on chronic hypoxic/hypercarbic respiratory failure, KAREN and sepsis; initial lactate was 2.9 w/ WBC 16,900. Sepsis appears to be intertrigo/cellultis of the inframammary folds/L axilla. Initial VB.36/61. Procalcitonin/RSV/SARS-CoV2/influenza (-). UA/micro not c/w UTI. She was resuscitated w/ 4 L crystalloid in the ED, cultured and started on vancomycin/cefepime as well as NE gtt. At the time of the admission notification from the VP OF [employer], the pt had been weaned off NE gtt but was on NIPPV 16/6 30%. At the time of my camera evaluation, she has been weaned off to NC O2. [facility] Medical History Lumbar radiculopathy Cervical radiculopathy Low back pain Thoracic back pain Shoulder pain Neck pain Chronic migraine [place] use Suicide attempt by acetaminophen overdose Aspirin overdose Essential (primary) hypertension Tachycardia Rheumatoid arthritis Chronic cough Asthma Hayfever Agoraphobia Panic attacks PTSD (post-traumatic stress disorder) Depression Anxiety Migraines Chronic headaches Bursitis of left hip Scoliosis Chronic back pain Corneal pigmentation of both eyes MRSA infection Anemia Vertigo Tinnitus Recurrent sinusitis History of recurrent ear infection Hearing loss Partial blindness Interstitial cystitis Painful menstrual periods Ovarian cyst Irregular periods/menstrual cycles History of heavy periods Endometriosis Abnormal Pap smear of cervix Kidney infection (2002) Frequent UTI BRCA negative PUD (peptic ulcer disease) IBS (irritable bowel syndrome) Hemorrhoids GI bleeding GERD (gastroesophageal reflux disease) Gastroparesis Gastric ulcer Anal fissure (01/24/12) History of tilt table evaluation (05/02/15) Vaginal delivery Asthma with allergic rhinitis Fibromyalgia Nondiabetic gastroparesis (01/04/16) Irritable bowel syndrome with diarrhea (01/04/16) Chronic interstitial cystitis (01/04/16) History of partial hysterectomy (01/04/16) History of fracture of hip (01/04/16) History of gastrointestinal hemorrhage (01/04/16) Surgical History History of colonoscopy (01/10/15) History of endoscopy (01/10/15) History of endoscopy (05/04/07) History of rectal surgery (01/24/12) Anesthesia complication History of hip surgery (12/13/92) Status post laparoscopy (05/04/07) History of bladder surgery (02/2001) Status post laparoscopy (1999) History of third molar tooth extraction (1997) History of bladder suspension procedure (06/14/13) Status post dilation and curettage (10/2009) Status post laparoscopic cholecystectomy (03/11/06) Status post appendectomy (08/1996) Status post hysterectomy (05/07/10) Family History Brother Age: 48 Back pain Brother Age: 47 Migraines Child Age: 21 Mental health problem Child Age: 20 Asperger syndrome Father Age: 71 Anger Mother Age: 65 Hypothyroidism Anxiety Stroke Sister Age: 48 Thyroid cancer Brain tumor Grandfather No problems noted. Grandmother Brain tumor Grandfather No problems noted. Grandmother Ovarian cancer Social History marital status: number of children: 2 household members: children lives independently: Yes caregiver/support person: Yes housing: house Smoking Status: Never smoker second hand exposure: No alcohol intake: current substance use type: does not use Current Medications Current Medications Medications: Home Medications magnesium oxide See Rx Instructions .Route .COMPLEX #180 tabs 12/22/20 [Rx Confirmed 10/29/23] levalbuterol HCl 1.25 mg/3 mL solution for nebulization See Rx Instructions .Route .COMPLEX #300 mL 04/09/21 [Rx Confirmed 10/29/23] nystatin 100,000 unit/gram topical powder 1 applic topical TID #60 grams 06/04/21 [Rx Confirmed 10/29/23] cholecalciferol (vitamin D3) 100 mcg (4,000 unit) capsule 2,000 unit PO BID #180 caps 11/26/21 [Rx Confirmed 10/29/23] albuterol sulfate 90 mcg/actuation aerosol inhaler (ProAir HFA) 2 puff inhalation Q4-6H PRN Shortness Of Breath #8.5 grams 03/19/22 [Rx Confirmed 10/29/23] melatonin 3 mg tablet,extended release See Rx Instructions PO .COMPLEX #90 tabs 07/05/22 [Rx Confirmed 10/29/23] rbbjwxe-fudsixtbjoyxx-flywokdz 250 mg-250 mg-65 mg tablet (Excedrin Extra Strength) 1 tab PO Q4-6H PRN Migraine Headache 09/18/22 [History Confirmed 10/29/23] galcanezumab-gnlm 120 mg/mL subcutaneous syringe (Emgality) 120 mg SUBCUT QMONTH 11/28/22 [History Confirmed 10/29/23] electronic blood pressure cuff #1 ea 12/09/22 [Rx Confirmed 10/29/23] mechanical lift chair #1 ea 12/09/22 [Rx Confirmed 10/29/23] nystatin 100,000 unit/gram topical ointment See Rx Instructions .Route .COMPLEX #30 grams 01/15/23 [Rx Confirmed 10/29/23] epinephrine 0.3 mg/0.3 mL injection, auto-injector See Rx Instructions .Route .COMPLEX #2 ea 01/20/23 [Rx Confirmed 10/29/23] elevated toilet seat #1 ea 02/10/23 [Rx Confirmed 10/29/23] ivabradine 5 mg tablet (Corlanor) 5 mg PO BID 07/04/23 [History Confirmed 10/29/23] tramadol 50 mg tablet 50 mg PO Q8H PRN pain #7 tabs 10/04/23 [Rx Confirmed 10/29/23] lidocaine 5 % topical ointment 1 applic topical BID PRN for pain #49.222 grams 12/04/23 [Rx] Lamictal 200 mg tablet (lamotrigine) 200 mg PO DAILY #90 tabs 01/05/24 [Rx Confirmed 01/05/24] fluticasone furoate 200 mcg-vilanterol 25 mcg/dose inhalation powder (Breo Ellipta) 1 inh PO ONCE PM #120 ea 02/26/24 [Rx] vortioxetine 20 mg tablet (Trintellix) 20 mg PO DAILY #90 tabs 03/01/24 [Rx Confirmed 03/01/24] lactulose 20 gram/30 mL oral solution 40 g (60 mL) PO BID #4,200 mL 03/12/24 [Rx] omeprazole 40 mg capsule,delayed release 40 mg PO BID #180 caps 03/18/24 [Rx] umeclidinium 62.5 mcg/actuation blister powder for inhalation (Incruse Ellipta) 1 inh PO DAILY #90 ea 03/18/24 [Rx] methylprednisolone 4 mg tablets in a dose pack (Medrol (Teofilo)) See Rx Instructions PO .COMPLEX #21 ea 04/01/24 [Rx] dupilumab 300 mg/2 mL subcutaneous pen injector (Dupixent) 300 mg (2 mL) SUBCUT Q2W #4 mL 06/03/24 [Rx] montelukast 10 mg tablet 10 mg PO QPM #90 tabs 06/10/24 [Rx] diazepam 5 mg tablet 5 mg PO TID #90 tabs 06/11/24 [Rx] hydroxyzine HCl 50 mg tablet 50 mg PO QID PRN anxiety #360 tabs 07/06/24 [Rx Confirmed 07/06/24] pregabalin 150 mg capsule (Lyrica) 150 mg PO BID #60 caps 07/23/24 [Rx] lisinopril 40 mg tablet 40 mg PO DAILY #90 tabs 08/02/24 [Rx] ondansetron 8 mg disintegrating tablet See Rx Instructions .Route .COMPLEX #90 tabs 08/02/24 [Rx] scopolamine base 1 mg over 3 days transdermal patch 1 patch transdermal Q3D PRN excess salivation #10 ea 08/02/24 [Rx Confirmed 08/02/24] amoxicillin 875 mg-potassium clavulanate 125 mg tablet 1 tab PO BID #14 tabs 08/10/24 [Rx] baclofen 20 mg tablet 40 mg (2 x 20 mg) PO QPM #60 tabs 09/06/24 [Rx] prazosin 2 mg capsule 4 mg (2 x 2 mg) PO ONCE PM #200 caps 09/16/24 [Rx Confirmed 09/16/24] Visit Medications (administered) Generic Name Dose Route Start Last Admin Trade Name Freq PRN Reason Stop Dose Admin NOREPINEPHRINE BITARTRATE/D5W 4 mg in 250 mls @ 30 mls/hr 09/19/24 13:45 09/19/24 18:50 Levophed IV 0 mcg/min TITRATE LAILA 0 mls/hr Titration Protocol 8 MCG/MIN Sodium Chloride 1,000 mls @ 100 mls/hr 09/19/24 18:26 09/19/24 18:50 Normal Saline 0.9% IV 100 mls/hr CONT LAILA Administration Vancomycin HCl/Dextrose 2,000 mg in 400 mls @ 200 mls/hr 09/19/24 20:00 09/19/24 20:13 Vancomycin IV 200 mls/hr Q24H LAILA Administration Non-Formulary Medication 5 mg 09/19/24 21:00 09/19/24 22:18 Ivabradine [Corlanor] PO Not Given BID LAILA Prazosin HCl 4 mg 09/19/24 21:00 09/19/24 22:00 Prazosin 1 Mg Capsule PO 4 mg BEDTIME LAILA Administration Pregabalin 150 mg 09/19/24 21:00 09/19/24 22:00 Pregabalin 75 Mg Capsule PO 150 mg BID LAILA Administration Exam Vital Signs (past 8 hours): - 09/19/24 14:55 09/19/24 14:55 09/19/24 15:00 Temperature Pulse Rate 81 Respiratory Rate Blood Pressure 121/57 L 109/54 L Pulse Oximetry Oxygen Delivery Method Fraction of Inspired Oxygen 09/19/24 15:00 09/19/24 15:04 09/19/24 15:04 Temperature Pulse Rate 80 77 Respiratory Rate 12 Blood Pressure 118/69 Pulse Oximetry 95 91 Oxygen Delivery Method Fraction of Inspired Oxygen 09/19/24 15:05 09/19/24 15:05 09/19/24 15:10 Temperature Pulse Rate 77 73 Respiratory Rate 16 15 Blood Pressure 110/59 L Pulse Oximetry 95 Oxygen Delivery Method Fraction of Inspired Oxygen 09/19/24 15:10 09/19/24 15:15 09/19/24 15:15 Temperature Pulse Rate 68 Respiratory Rate 17 Blood Pressure 116/58 L 108/56 L Pulse Oximetry 93 Oxygen Delivery Method Fraction of Inspired Oxygen 09/19/24 15:20 09/19/24 15:20 09/19/24 15:25 Temperature 98.2 F Pulse Rate 66 64 Respiratory Rate 17 17 Blood Pressure 103/55 L Pulse Oximetry 93 93 Oxygen Delivery Method Fraction of Inspired Oxygen 09/19/24 15:25 09/19/24 15:30 09/19/24 15:30 Temperature 98.1 F Pulse Rate 64 Respiratory Rate 16 Blood Pressure 107/53 L 101/51 L Pulse Oximetry 97 Oxygen Delivery Method Fraction of Inspired Oxygen 09/19/24 15:35 09/19/24 15:35 09/19/24 15:40 Temperature 98.1 F Pulse Rate 63 63 Respiratory Rate 16 16 Blood Pressure 108/53 L Pulse Oximetry Oxygen Delivery Method Fraction of Inspired Oxygen 09/19/24 15:40 09/19/24 15:45 09/19/24 15:45 Temperature 98.1 F Pulse Rate 64 Respiratory Rate 19 Blood Pressure 98/52 L 102/59 L Pulse Oximetry 91 Oxygen Delivery Method Fraction of Inspired Oxygen 09/19/24 15:50 09/19/24 15:50 09/19/24 15:55 Temperature 97.9 F Pulse Rate 62 Respiratory Rate 17 Blood Pressure 93/51 L 93/54 L Pulse Oximetry 95 Oxygen Delivery Method Fraction of Inspired Oxygen 09/19/24 15:55 09/19/24 16:00 09/19/24 16:00 Temperature 97.9 F 97.9 F Pulse Rate 60 61 Respiratory Rate 17 15 Blood Pressure 94/53 L Pulse Oximetry 95 95 Oxygen Delivery Method Fraction of Inspired Oxygen 09/19/24 16:05 09/19/24 16:05 09/19/24 16:10 Temperature 97.9 F 97.7 F Pulse Rate 61 63 Respiratory Rate 18 17 Blood Pressure 99/55 L Pulse Oximetry 95 95 Oxygen Delivery Method Fraction of Inspired Oxygen 09/19/24 16:10 09/19/24 16:15 09/19/24 16:15 Temperature 97.7 F Pulse Rate 62 Respiratory Rate 16 Blood Pressure 100/54 L 98/53 L Pulse Oximetry 95 Oxygen Delivery Method Fraction of Inspired Oxygen 09/19/24 16:20 09/19/24 16:20 09/19/24 16:25 Temperature 97.7 F Pulse Rate 62 Respiratory Rate 16 Blood Pressure 100/56 L 100/55 L Pulse Oximetry 96 Oxygen Delivery Method Fraction of Inspired Oxygen 09/19/24 16:25 09/19/24 16:30 09/19/24 16:30 Temperature 97.7 F 97.7 F Pulse Rate 62 63 Respiratory Rate 16 15 Blood Pressure 103/57 L Pulse Oximetry 96 96 Oxygen Delivery Method Fraction of Inspired Oxygen 09/19/24 16:35 09/19/24 16:35 09/19/24 16:40 Temperature 97.7 F 97.5 F L Pulse Rate 64 66 Respiratory Rate 15 15 Blood Pressure 103/59 L Pulse Oximetry 96 95 Oxygen Delivery Method Fraction of Inspired Oxygen 09/19/24 16:40 09/19/24 16:45 09/19/24 16:45 Temperature 97.5 F L Pulse Rate 66 Respiratory Rate 15 Blood Pressure 105/59 L 111/51 L Pulse Oximetry 95 Oxygen Delivery Method Fraction of Inspired Oxygen 09/19/24 16:50 09/19/24 16:50 09/19/24 16:55 Temperature 97.5 F L 97.5 F L Pulse Rate 69 67 Respiratory Rate 16 16 Blood Pressure 117/53 L Pulse Oximetry 93 96 Oxygen Delivery Method Fraction of Inspired Oxygen 09/19/24 16:55 09/19/24 17:00 09/19/24 17:00 Temperature 97.5 F L Pulse Rate 66 Respiratory Rate 16 Blood Pressure 114/56 L 111/55 L Pulse Oximetry 94 Oxygen Delivery Method Fraction of Inspired Oxygen 09/19/24 17:05 09/19/24 17:05 09/19/24 17:10 Temperature 97.3 F L 97.3 F L Pulse Rate 65 65 Respiratory Rate 15 15 Blood Pressure 115/58 L Pulse Oximetry 95 95 Oxygen Delivery Method Fraction of Inspired Oxygen 09/19/24 17:10 09/19/24 17:15 09/19/24 17:15 Temperature 97.3 F L Pulse Rate 64 Respiratory Rate 15 Blood Pressure 113/56 L 111/58 L Pulse Oximetry 95 Oxygen Delivery Method Fraction of Inspired Oxygen 09/19/24 17:20 09/19/24 17:20 09/19/24 17:24 Temperature 97.3 F L Pulse Rate 68 Respiratory Rate 16 Blood Pressure 129/78 Pulse Oximetry Oxygen Delivery Method BiPAP Fraction of Inspired Oxygen 09/19/24 17:25 09/19/24 17:25 09/19/24 17:30 Temperature 97.3 F L 97.3 F L Pulse Rate 68 70 Respiratory Rate 24 21 Blood Pressure 114/67 Pulse Oximetry 93 91 Oxygen Delivery Method Fraction of Inspired Oxygen 09/19/24 17:30 09/19/24 17:35 09/19/24 17:35 Temperature 97.5 F L Pulse Rate 66 Respiratory Rate 17 Blood Pressure 118/70 120/69 Pulse Oximetry 92 Oxygen Delivery Method Fraction of Inspired Oxygen 09/19/24 17:40 09/19/24 17:40 09/19/24 17:45 Temperature 97.5 F L 97.5 F L Pulse Rate 69 67 Respiratory Rate 26 H 18 Blood Pressure 121/67 Pulse Oximetry 90 L 90 L Oxygen Delivery Method Fraction of Inspired Oxygen 09/19/24 17:45 09/19/24 17:50 09/19/24 17:50 Temperature 97.5 F L Pulse Rate 65 Respiratory Rate 14 Blood Pressure 125/67 120/66 Pulse Oximetry 93 Oxygen Delivery Method Fraction of Inspired Oxygen 09/19/24 17:55 09/19/24 17:55 09/19/24 18:00 Temperature 97.7 F 97.7 F Pulse Rate 66 63 Respiratory Rate 18 19 Blood Pressure 115/66 Pulse Oximetry 91 92 Oxygen Delivery Method Fraction of Inspired Oxygen 09/19/24 18:00 09/19/24 18:05 09/19/24 18:05 Temperature 97.7 F Pulse Rate 58 L Respiratory Rate 18 Blood Pressure 116/63 122/69 Pulse Oximetry 90 L Oxygen Delivery Method Fraction of Inspired Oxygen 09/19/24 18:10 09/19/24 18:10 09/19/24 18:20 Temperature 97.7 F 97.5 F L Pulse Rate 64 71 Respiratory Rate 14 15 Blood Pressure 127/70 113/60 Pulse Oximetry 91 100 Oxygen Delivery Method Fraction of Inspired Oxygen 30 09/19/24 18:26 09/19/24 18:26 09/19/24 18:30 Temperature Pulse Rate 69 Respiratory Rate Blood Pressure 113/60 120/61 Pulse Oximetry 100 Oxygen Delivery Method Fraction of Inspired Oxygen 09/19/24 18:30 09/19/24 18:35 09/19/24 18:48 Temperature Pulse Rate 69 77 Respiratory Rate 19 17 Blood Pressure 120/61 Pulse Oximetry 100 100 Oxygen Delivery Method Fraction of Inspired Oxygen 30 09/19/24 18:48 09/19/24 19:00 09/19/24 19:00 Temperature Pulse Rate 74 Respiratory Rate 17 Blood Pressure 113/53 L 114/53 L Pulse Oximetry 100 Oxygen Delivery Method Fraction of Inspired Oxygen 09/19/24 19:30 09/19/24 19:30 09/19/24 20:00 Temperature Pulse Rate 70 Respiratory Rate 16 Blood Pressure 96/50 L 104/55 L Pulse Oximetry 100 Oxygen Delivery Method Fraction of Inspired Oxygen 09/19/24 20:00 09/19/24 20:30 09/19/24 20:30 Temperature 97.5 F L Pulse Rate 75 70 Respiratory Rate 13 18 Blood Pressure 114/59 L Pulse Oximetry 100 100 Oxygen Delivery Method Fraction of Inspired Oxygen 09/19/24 20:46 09/19/24 21:00 09/19/24 21:00 Temperature Pulse Rate 70 Respiratory Rate 18 Blood Pressure 114/59 L 117/58 L Pulse Oximetry 100 Oxygen Delivery Method Fraction of Inspired Oxygen 30 09/19/24 21:30 09/19/24 21:30 09/19/24 21:30 Temperature Pulse Rate 81 Respiratory Rate 18 Blood Pressure 117/64 Pulse Oximetry 100 Oxygen Delivery Method Nasal Cannula Fraction of Inspired Oxygen 09/19/24 22:00 09/19/24 22:00 Temperature Pulse Rate 82 Respiratory Rate 13 Blood Pressure 124/58 L Pulse Oximetry 99 Oxygen Delivery Method Fraction of Inspired Oxygen Fraction of Inspired Oxygen 30 Oxygen Delivery Method Nasal Cannula Oxygen Flow Rate 4 Const General: comfortable Nutritional Appearance: obese Resp Effort & Inspection: normal respiratory effort Cardio Rate: regular rate Rhythm: regular rhythm Objective Labs 09/19/24 13:16 09/19/24 13:16 Labs: Laboratory Results - last 24 hr 09/19/24 09/19/24 09/19/24 13:16 13:57 14:35 WBC 16.9 H RBC 4.56 Hgb 12.4 Hct 38.8 MCV 85.1 MCH 27.2 MCHC 32.0 RDW 14.4 Plt Count 413 H Neut % (Auto) 69.8 Lymph % (Auto) 21.9 L [place] % (Auto) 6.1 Eos % (Auto) 1.7 L Baso % (Auto) 0.5 Neut # (Auto) 73738 H Lymph # (Auto) 3700 [place] # (Auto) 1000 H Eos # (Auto) 300 Baso # (Auto) 100 PT 13.3 H INR 1.2 APTT 38 H VBG pH 7.36 VBG pCO2 61.3 H VBG pO2 58 H VBG HCO3 35 H VBG Total CO2 34 H VBG O2 Saturation 88 H VBG Base Excess 7.4 H FiO2 % 32 % Sodium 136 L Potassium 4.2 Chloride 96 L Carbon Dioxide 32 BUN 21 H Creatinine 1.96 H Estimated GFR 32 L BUN/Creatinine Ratio 10.7 Glucose 135 H Lactate 2.9 H Calcium 9.1 Total Bilirubin 0.4 AST 25 ALT 25 Alkaline Phosphatase 74 Total Creatine Kinase 52 Troponin I < 0.012 NT-Pro-B Natriuret Pep 69 Total Protein 7.6 Albumin 4.3 Globulin 3.3 Albumin/Globulin Ratio 1.3 Procalcitonin 0.135 Urine Color Yellow Urine Appearance Sl cloudy Urine pH 5.0 Ur Specific [place] >=1.030 H Urine Protein 1+ H Urine Glucose (UA) Negative Urine Ketones Trace H Urine Occult Blood Negative Urine Nitrate Negative Urine Bilirubin 1+ H Ur Bilirubin Confirm Negative Urine Urobilinogen 1.0 Ur Leukocyte Esterase Negative Urine RBC 0-1/hpf Urine WBC 0-1/hpf Ur Squamous Epith Cells 0-1 /hpf Urine Bacteria Occasional (0-1) Hyaline Casts 1-5/lpf Urine Mucus 1+ H Ur Culture Indicated? Cult not indicated Vol Urine Centrifuged 10ml (spun) Nasal Screen MRSA (PCR) SARS-CoV-2 (PCR) Negative Influenza A (RT-PCR) Flu a negative Influenza B (RT-PCR) Flu b negative RSV (PCR) Negative 09/19/24 09/19/24 09/19/24 15:15 15:54 18:30 WBC RBC Hgb Hct MCV MCH MCHC RDW Plt Count Neut % (Auto) Lymph % (Auto) [place] % (Auto) Eos % (Auto) Baso % (Auto) Neut # (Auto) Lymph # (Auto) [place] # (Auto) Eos # (Auto) Baso # (Auto) PT INR APTT VBG pH 7.36 VBG pCO2 52.3 H VBG pO2 56 H VBG HCO3 30 H VBG Total CO2 29 VBG O2 Saturation 87 H VBG Base Excess 3.3 FiO2 % 30 % Sodium Potassium Chloride Carbon Dioxide BUN Creatinine Estimated GFR BUN/Creatinine Ratio Glucose Lactate 0.9 Calcium Total Bilirubin AST ALT Alkaline Phosphatase Total Creatine Kinase Troponin I NT-Pro-B Natriuret Pep Total Protein Albumin Globulin Albumin/Globulin Ratio Procalcitonin Urine Color Urine Appearance Urine pH Ur Specific [place] Urine Protein Urine Glucose (UA) Urine Ketones Urine Occult Blood Urine Nitrate Urine Bilirubin Ur Bilirubin Confirm Urine Urobilinogen Ur Leukocyte Esterase Urine RBC Urine WBC Ur Squamous Epith Cells Urine Bacteria Hyaline Casts Urine Mucus Ur Culture Indicated? Vol Urine Centrifuged Nasal Screen MRSA (PCR) Not detected SARS-CoV-2 (PCR) Influenza A (RT-PCR) Influenza B (RT-PCR) RSV (PCR) Assessment & Plan Assessment and plan (1) Sepsis with acute organ dysfunction: Problem details: with acute on chronic hypoxic and hypercarbic respiratory failure and KAREN Qualifiers: Sepsis type: sepsis due to unspecified organism Severe sepsis acute organ dysfunction type: unspecified Severe sepsis shock status: without septic shock Qualified Code(s): A41.9 - Sepsis, unspecified organism; R65.20 - Severe sepsis without septic shock Status: Acute Plan: -Continue vancomycin/cefepime pending cx data -PRN NIPPV -Minimize potentially sedating medications while balancing her chronic psychiatric issues (changed melatonin to PRN; decreased diazepam dose and changed to PRN) -Check MRSA for antimicrobial stewardship -Changed enoxaparin VTE chemoprophylaxis to heparin -Stopped lisinopril given KAREN (2) Acute and chronic respiratory failure ([id number]): Qualifiers: Respiratory failure complication: hypoxia and hypercapnia Qualified Code(s): J96.21 - Acute and chronic respiratory failure with hypoxia; J96.22 - Acute and chronic respiratory failure with hypercapnia Status: Acute Plan: See problem #1 (3) Acute kidney injury: Status: Acute Plan: See problem #1 (4) Cellulitis: Qualifiers: Site of cellulitis: trunk Site of cellulitis of trunk: chest wall Qualified Code(s): L03.313 - Cellulitis of chest wall Status: Acute Plan: See problem #1 (5) Anxiety: Status: Acute Plan: See problem #1; continue remainder of psychoactive meds /analgesics as per bedside team (6) PTSD (post-traumatic stress disorder): Status: Chronic Plan: See problem #1; continue remainder of psychoactive meds /analgesics as per bedside team (7) Panic disorder with agoraphobia and severe panic attacks: Status: Acute Plan: See problem #1; continue remainder of psychoactive meds /analgesics as per bedside team
[2024-09-20] VITALS (55 sets, daily range): BP systolic 82–143; BP diastolic 38–95; PULSE 67–114; RESP 9–30; TEMP 31–36.6; O2SAT 88–100
[2024-09-20] MEDS: CEFEPIME 1 GM in SODIUM CHLORIDE 0.9% 100 ML IV ×2 (01:48→14:19)
[2024-09-20] MEDS: SODIUM CHLORIDE 0.9% 1,000 ML 75 ML IV (05:57)
[2024-09-20] MEDS: HEPARIN 5,000 UNIT/ML VIAL 5000 UNIT SUBCUT ×3 (05:57→21:35)
[2024-09-20 06:11] LABS: Add Manual Diff / Slide Review NO; Basophils Absolute Auto 0 /uL (0-100); Basophils Percent Auto 0.5 % (0-2); Eosinophils Absolute Auto 400 /uL (0-450); Eosinophils Percent Auto 4.2 % (2-4); Hematocrit 31.9 % (36-46); Hemoglobin 10.4 g/dL (12.0-16.0); Lymphocytes Absolute Auto 2500 /uL (1100-4500); Lymphocytes Percent Auto 27.3 % (25-40); Mean Corpuscular HGB Conc 32.5 % (30-36); Mean Corpuscular Hemoglobin 27.8 PG (26-34); Mean Corpuscular Volume 85.3 fL (80-100); Monocytes Absolute Auto 600 /uL (0-900); Monocytes Percent Auto 7.1 % (3-14); Neutrophils Absolute Auto 5500 /uL (1500-7000); Neutrophils Percent Auto 60.9 % (50-75); Platelet Count 250 X10^3/uL (150-400); Red Blood Cell Count 3.74 X10^6/uL (4.0-5.2); Red Cell Distribution Width 14.6 % (11.6-14.8); White Blood Cell Count 9.1 X10^3/uL (4.5-11.0)
[2024-09-20 06:37] LABS: BUN Creatinine Ratio 17.9 (6-22); Blood Urea Nitrogen 12 mg/dL (7-17); Calcium 8.5 mg/dL (8.4-10.2); Carbon Dioxide 30 mmol/L (22-32); Chloride 104 mmol/L (98-107); Estimated Glomerular Filt Rate > 60 mL/min (>60); Glucose 126 mg/dL (70-100); HEMOLYSIS < 15 (0-50); Magnesium 1.9 mg/dL (1.6-2.3); Phosphorous 3.2 mg/dL (2.5-4.5); Potassium 3.6 mmol/L (3.4-5.1); Sodium 139 mmol/L (137-145)
--- NOTE | 2024-09-20 06:48 | PC.NURSE ---
table games shift manager RN note pt fatigued, rousable to verbal stimuli, shakes head yes and no to questions, does not remember coming to hospital, falls back to sleep quickly after interactions,moves extrem with weakness, favors L side leaning in bed, hypotensive at times, levophed restarted overnight to keep MAP >65, L arm 1+ edema, lungs clear in upper lobes with some scattered rhonchi in lower lobes, bipap on for most of night 08/13 30%, pt states she wears 3L NC at home overnight and when out of the home, brief break from bipap on 3L NC, pt very sommulent, snoring with mouth open and desating to mid 80s, bipap reapplied, some mild redness noted to R side of face from bipap mask, denied nausea, r/c draining large amt clear yellow urine, skin warm, redness and excoriation noted under bilat breast folds/L axilla, small open area to L breast, pillow cases under folds with skin care, attempted to reposition pt off of L side and pt declined each time, RIJ central line patent with IV fluids, EICU consulted and orders placed, call reyna within reach, bed alarm on
[2024-09-20] MEDS: ALBUTEROL 2.5 MG/3 ML NEB (ADULT) INH ×2 (07:42→19:10)
[2024-09-20] MEDS: BUDESONIDE 0.5 MG/2 ML NEB INH ×2 (07:42→19:10)
[2024-09-20] MEDS: VANCOMYCIN 2,000 MG/400 ML PIGGYBACK 200 MG IV ×2 (07:48→20:29)
--- NOTE | 2024-09-20 10:00 | P.HP_ITS ---
History of Present Illness <Helen Santos - Last Filed: 09/20/24 17:51> History of Present Illness Date Patient Seen: 09/20/24 Time Patient Seen: 08:30 Chief complaint: SOB Narrative: Dorinda Harper is a 44 year old female, with history of hypertension, asthma, obesity, chronic pain, fibromyalgia, gastroporesis, various psychiatric problems including suicide attempt from overdose, who presents with difficulty breathing and wheezing. She presented to the ER this afternoon due to daughter's concern for low oxygen level and weakness at home. She uses 3L O2 at home. From ER note, she was minimally engaged with flat affect and stated she feels poorly. Denied shortness of breath, chest pain, abdominal pain. Was noted to have significant intertrigo and cellulitis of the breasts and left axilla, apparently told ER physician this is normal for her. ER workup was notable for WBC 16.9 with neutrophilic predominance, platelets 413, BUN 21, creatinine 1.96, GFR 32, lactate 2.9. VBG 7.36/61.3/50/35. EKG sinus tach without ischemic changes. Troponin negative, BNP normal, procalcitonin negative, UA without evidence of infection, rapid flu/RSV/SARS/CoV-2 negative. She was noted to be hypotensive and clinically dehydrated. She received 4L IVF in the ER. She was started on pressors, broad- spectrum antibiotics (cefepime and vancomycin), Sanchez catheter was placed. BiPAP was started tolerated well. Blood cultures were drawn and broad-spectrum antibiotics started. On interview today, she reports that she's noticed a rash on left side of her chest since April 2024. It has been progressively getting worse. She mentioned that she's had similar rashes on/off for 2 years, previously treating it with nystatin and had received wound care. For the last 5 months, she has not had any treatments. She has had trouble with bathing and has been mostly sedentary in bed due to chronic pain. She remembers being brought in to the hospital. Currently, she reports having pain in her left arm and right chest and a headache. The pain in her right chest is sharp, tingling, and trujillo. She also reports having a sore on her mouth. She reports the headache comes and goes and is in the frontal region. She also has a history of migraines. She denies any pain on the left chest/breast area, SOB, chest pain, or abdominal pain. <Rolanda Raymond MD - Last Filed: 09/20/24 18:28> History of Present Illness Narrative: Dorinda Harper is a 44 year old female, with history of hypertension, asthma, obesity, chronic pain, fibromyalgia, gastroporesis, various psychiatric problems including suicide attempt from overdose, who presents with difficulty breathing and wheezing. She presented to the ER yesterday afternoon due to daughter's concern for low oxygen level and weakness at home. She uses 3L O2 at home. From ER note, she was minimally engaged with flat affect and stated she feels poorly. Denied shortness of breath, chest pain, abdominal pain. Was noted to have significant intertrigo and cellulitis of the breasts and left axilla, apparently told ER physician this is normal for her. ER workup was notable for WBC 16.9 with neutrophilic predominance, platelets 413, BUN 21, creatinine 1.96, GFR 32, lactate 2.9. VBG 7.36/61.3/50/35. EKG sinus tach without ischemic changes. Troponin negative, BNP normal, procalcitonin negative, UA without evidence of infection, rapid flu/RSV/SARS/CoV-2 negative. She was noted to be hypotensive and clinically dehydrated. She received 4L IVF in the ER. She was started on pressors, broad- spectrum antibiotics (cefepime and vancomycin), Sanchez catheter was placed. BiPAP was started tolerated well. Blood cultures were drawn. On interview today, she reports that she's noticed a rash on left side of her chest since April 2024. It has been progressively getting worse. She mentioned that she's had similar rashes on/off for 2 years, previously treating it with nystatin and had received wound care. For the last 5 months, she has not had any treatments. She has had trouble with bathing and has been mostly sedentary in bed due to chronic pain. She remembers being brought in to the hospital. Currently, she reports having pain in her left arm and right chest and a headache. The pain in her right chest is sharp, tingling, and trujillo. No associated worsening SOB, palpitations, diaphoresis. She also reports having a sore on her mouth. She reports the headache comes and goes and is in the frontal region. She also has a history of migraines. She denies any pain on the left chest/breast area, or abdominal pain. [facility] <Helen Santos - Last Filed: 09/20/24 17:51> Medical History Lumbar radiculopathy Cervical radiculopathy Low back pain Thoracic back pain Shoulder pain Neck pain Chronic migraine [place] use Suicide attempt by acetaminophen overdose Aspirin overdose Essential (primary) hypertension Tachycardia Rheumatoid arthritis Chronic cough Asthma Hayfever Agoraphobia Panic attacks PTSD (post-traumatic stress disorder) Depression Anxiety Migraines Chronic headaches Bursitis of left hip Scoliosis Chronic back pain Corneal pigmentation of both eyes MRSA infection Anemia Vertigo Tinnitus Recurrent sinusitis History of recurrent ear infection Hearing loss Partial blindness Interstitial cystitis Painful menstrual periods Ovarian cyst Irregular periods/menstrual cycles History of heavy periods Endometriosis Abnormal Pap smear of cervix Kidney infection (2002) Frequent UTI BRCA negative PUD (peptic ulcer disease) IBS (irritable bowel syndrome) Hemorrhoids GI bleeding GERD (gastroesophageal reflux disease) Gastroparesis Gastric ulcer Anal fissure (01/24/12) History of tilt table evaluation (05/02/15) Vaginal delivery Asthma with allergic rhinitis Fibromyalgia Nondiabetic gastroparesis (01/04/16) Irritable bowel syndrome with diarrhea (01/04/16) Chronic interstitial cystitis (01/04/16) History of partial hysterectomy (01/04/16) History of fracture of hip (01/04/16) History of gastrointestinal hemorrhage (01/04/16) Surgical History History of colonoscopy (01/10/15) History of endoscopy (01/10/15) History of endoscopy (05/04/07) History of rectal surgery (01/24/12) Anesthesia complication History of hip surgery (12/13/92) Status post laparoscopy (05/04/07) History of bladder surgery (02/2001) Status post laparoscopy (1999) History of third molar tooth extraction (1997) History of bladder suspension procedure (06/14/13) Status post dilation and curettage (10/2009) Status post laparoscopic cholecystectomy (03/11/06) Status post appendectomy (08/1996) Status post hysterectomy (05/07/10) Family History Brother Age: 48 Back pain Brother Age: 47 Migraines Child Age: 21 Mental health problem Child Age: 20 Asperger syndrome Father Age: 71 Anger Mother Age: 65 Hypothyroidism Anxiety Stroke Sister Age: 48 Thyroid cancer Brain tumor Grandfather No problems noted. Grandmother Brain tumor Grandfather No problems noted. Grandmother Ovarian cancer Social History marital status: number of children: 2 household members: children lives independently: Yes caregiver/support person: Yes housing: house Smoking Status: Never smoker second hand exposure: No alcohol intake: current substance use type: does not use Meds <Helenapolinar Santos - Last Filed: 09/20/24 17:51> Home Medications and Allergies Home Medications Medication Instructions Recorded Confirmed Type cholecalciferol (vitamin D3) 100 2,000 unit PO BID #180 caps 11/26/21 09/20/24 Rx mcg (4,000 unit) capsule albuterol sulfate 90 mcg/actuation 2 puff inhalation Q4-6H PRN 03/19/22 09/20/24 Rx aerosol inhaler (ProAir HFA) Shortness Of Breath #8.5 grams [id number] 250 1 tab PO Q4-6H PRN Migraine 09/18/22 09/20/24 History mg-250 mg-65 mg tablet (Excedrin Headache Extra Strength) electronic blood pressure cuff #1 ea 12/09/22 09/20/24 Rx mechanical lift chair #1 ea 12/09/22 09/20/24 Rx elevated toilet seat #1 ea 02/10/23 09/20/24 Rx ivabradine 5 mg tablet (Corlanor) 5 mg PO BID 07/04/23 09/20/24 History lidocaine 5 % topical ointment 1 applic topical BID PRN for pain 12/04/23 09/20/24 Rx #49.222 grams Lamictal 200 mg tablet 200 mg PO DAILY #90 tabs 01/05/24 09/20/24 Rx (lamotrigine) fluticasone furoate 200 1 inh PO ONCE PM #120 ea 02/26/24 09/20/24 Rx mcg-vilanterol 25 mcg/dose inhalation powder (Breo Ellipta) omeprazole 40 mg capsule,delayed 40 mg PO BID #180 caps 03/18/24 09/20/24 Rx release umeclidinium 62.5 mcg/actuation 1 inh PO DAILY #90 ea 03/18/24 09/20/24 Rx blister powder for inhalation (Incruse Ellipta) dupilumab 300 mg/2 mL subcutaneous 300 mg (2 mL) SUBCUT Q2W #4 mL 06/03/24 09/20/24 Rx pen injector (Dupixent) montelukast 10 mg tablet 10 mg PO QPM #90 tabs 06/10/24 09/20/24 Rx diazepam 5 mg tablet 5 mg PO TID #90 tabs 06/11/24 09/20/24 Rx hydroxyzine HCl 50 mg tablet 50 mg PO QID PRN anxiety #360 tabs 07/06/24 09/20/24 Rx pregabalin 150 mg capsule (Lyrica) 150 mg PO BID #60 caps 07/23/24 09/20/24 Rx lisinopril 40 mg tablet 40 mg PO DAILY #90 tabs 08/02/24 09/20/24 Rx scopolamine base 1 mg over 3 days 1 patch transdermal Q3D PRN excess 08/02/24 09/20/24 Rx transdermal patch salivation #10 ea baclofen 20 mg tablet 40 mg (2 x 20 mg) PO QPM #60 tabs 09/06/24 09/20/24 Rx prazosin 2 mg capsule 4 mg (2 x 2 mg) PO ONCE PM #200 09/16/24 09/20/24 Rx caps Trintellix 20 mg PO DAILY 09/20/24 09/20/24 History latanoprost 0.005 % eye drops 1 drp EYE-BOTH BEDTIME 09/20/24 09/20/24 History levalbuterol HCl 1.25 mg/3 mL 1.25 mg inhalation Q4H PRN Wheezing 09/20/24 09/20/24 History solution for nebulization ondansetron 8 mg disintegrating 8 mg PO Q8H PRN Nausea And Vomiting 09/20/24 09/20/24 History tablet Allergies Allergy/AdvReac Type Severity Reaction Status Date / Time bupropion [BUPROPION] Allergy Mild facial rash Verified 10/29/23 11:15 hydrocodone [HYDROCODONE] Allergy Mild rash Verified 10/29/23 11:15 iodine [IODINE] Allergy Mild edema Verified 10/29/23 11:15 lithium AdvReac Severe suicidal Verified 10/29/23 11:15 thoughts lorazepam AdvReac Severe worsens Verified 10/29/23 11:15 panic trazodone AdvReac Severe suicidal Verified 10/29/23 11:15 thoughts diphenhydramine AdvReac Intermediate panic Verified 10/29/23 11:15 [From Benadryl] attacks Exam <Helen Santos - Last Filed: 09/20/24 17:51> Vital Signs (past 8 hours): - 09/20/24 02:30 09/20/24 02:30 09/20/24 03:00 Temperature Pulse Rate 73 Respiratory Rate 16 Blood Pressure 103/51 L 107/53 L Pulse Oximetry 98 Fraction of Inspired Oxygen 09/20/24 03:00 09/20/24 03:16 09/20/24 03:30 Temperature Pulse Rate 76 Respiratory Rate 17 Blood Pressure 107/53 L 110/56 L Pulse Oximetry 99 Fraction of Inspired Oxygen 09/20/24 03:30 09/20/24 04:00 09/20/24 04:00 Temperature 96.9 F L Pulse Rate 78 75 Respiratory Rate 14 15 Blood Pressure 107/53 L Pulse Oximetry 99 99 Fraction of Inspired Oxygen 09/20/24 04:30 09/20/24 04:30 09/20/24 04:30 Temperature Pulse Rate 74 74 Respiratory Rate 16 16 Blood Pressure 107/53 L Pulse Oximetry 98 98 Fraction of Inspired Oxygen 09/20/24 05:00 09/20/24 05:00 09/20/24 05:30 Temperature Pulse Rate 75 Respiratory Rate 16 Blood Pressure 109/54 L 113/54 L Pulse Oximetry 98 Fraction of Inspired Oxygen 09/20/24 05:30 09/20/24 06:00 09/20/24 06:00 Temperature Pulse Rate 74 76 Respiratory Rate 20 13 Blood Pressure 115/55 L Pulse Oximetry 99 99 Fraction of Inspired Oxygen 09/20/24 06:30 09/20/24 06:30 09/20/24 07:00 Temperature Pulse Rate 83 80 Respiratory Rate 16 16 Blood Pressure 117/59 L Pulse Oximetry 98 99 Fraction of Inspired Oxygen 09/20/24 07:00 09/20/24 07:43 Temperature Pulse Rate Respiratory Rate Blood Pressure 112/58 L 126/63 Pulse Oximetry Fraction of Inspired Oxygen 28 Fraction of Inspired Oxygen 28 Oxygen Delivery Method Nasal Cannula Oxygen Flow Rate 4 Narrative Exam Narrative: General: Pleasant, NAD, laying in bed HENT: Head: NC/AT Eyes: PERRL, eye discharge noted more on left eye Nose: nasal cannula Throat: no posterior oropharynx erythema or exudates Mouth: wet drool noted around mouth, ulcer noted on left side of tongue Chest: Intertrigo under both breasts with drainage under the right, erythema extending over sternum and upper portion of the right breast; some shallow ulceration over upper aspect of left breast, green purulent exudate noted from skin of upper left breast. Significant intertrigo in the left axilla without obvious skin breakdown CV: RRR, normal S1-S2, no m/g/r Resp: CTAB, comfortable WOB Abd: Soft, obese, NTND, +BS, Extremities: Left arm and hand edema and warmth noted, no evidence of cellulitis or ulcerations or lesions on feet. Skin: Multiple areas of significant intertrigo, cellulitis over the right breast, concern for cellulitis developing around the umbilicus Neurologic: A&O x 3. Objective <Helen Santos - Last Filed: 09/20/24 17:51> Labs 09/20/24 06:00 09/20/24 06:00 Labs: Laboratory Results - last 24 hr 09/19/24 09/19/24 09/19/24 13:16 13:57 14:35 WBC 16.9 H RBC 4.56 Hgb 12.4 Hct 38.8 MCV 85.1 MCH 27.2 MCHC 32.0 RDW 14.4 Plt Count 413 H Neut % (Auto) 69.8 Lymph % (Auto) 21.9 L [place] % (Auto) 6.1 Eos % (Auto) 1.7 L Baso % (Auto) 0.5 Neut # (Auto) 25838 H Lymph # (Auto) 3700 [place] # (Auto) 1000 H Eos # (Auto) 300 Baso # (Auto) 100 PT 13.3 H INR 1.2 APTT 38 H VBG pH 7.36 VBG pCO2 61.3 H VBG pO2 58 H VBG HCO3 35 H VBG Total CO2 34 H VBG O2 Saturation 88 H VBG Base Excess 7.4 H FiO2 % 32 % Sodium 136 L Potassium 4.2 Chloride 96 L Carbon Dioxide 32 BUN 21 H Creatinine 1.96 H Estimated GFR 32 L BUN/Creatinine Ratio 10.7 Glucose 135 H Lactate 2.9 H Calcium 9.1 Phosphorus Magnesium Total Bilirubin 0.4 AST 25 ALT 25 Alkaline Phosphatase 74 Total Creatine Kinase 52 Troponin I < 0.012 NT-Pro-B Natriuret Pep 69 Total Protein 7.6 Albumin 4.3 Globulin 3.3 Albumin/Globulin Ratio 1.3 Procalcitonin 0.135 Urine Color Yellow Urine Appearance Sl cloudy Urine pH 5.0 Ur Specific [place] >=1.030 H Urine Protein 1+ H Urine Glucose (UA) Negative Urine Ketones Trace H Urine Occult Blood Negative Urine Nitrate Negative Urine Bilirubin 1+ H Ur Bilirubin Confirm Negative Urine Urobilinogen 1.0 Ur Leukocyte Esterase Negative Urine RBC 0-1/hpf Urine WBC 0-1/hpf Ur Squamous Epith Cells 0-1 /hpf Urine Bacteria Occasional (0-1) Hyaline Casts 1-5/lpf Urine Mucus 1+ H Ur Culture Indicated? Cult not indicated Vol Urine Centrifuged 10ml (spun) Nasal Screen MRSA (PCR) SARS-CoV-2 (PCR) Negative Influenza A (RT-PCR) Flu a negative Influenza B (RT-PCR) Flu b negative RSV (PCR) Negative 09/19/24 09/19/24 09/19/24 15:15 15:54 18:30 WBC RBC Hgb Hct MCV MCH MCHC RDW Plt Count Neut % (Auto) Lymph % (Auto) [place] % (Auto) Eos % (Auto) Baso % (Auto) Neut # (Auto) Lymph # (Auto) [place] # (Auto) Eos # (Auto) Baso # (Auto) PT INR APTT VBG pH 7.36 VBG pCO2 52.3 H VBG pO2 56 H VBG HCO3 30 H VBG Total CO2 29 VBG O2 Saturation 87 H VBG Base Excess 3.3 FiO2 % 30 % Sodium Potassium Chloride Carbon Dioxide BUN Creatinine Estimated GFR BUN/Creatinine Ratio Glucose Lactate 0.9 Calcium Phosphorus Magnesium Total Bilirubin AST ALT Alkaline Phosphatase Total Creatine Kinase Troponin I NT-Pro-B Natriuret Pep Total Protein Albumin Globulin Albumin/Globulin Ratio Procalcitonin Urine Color Urine Appearance Urine pH Ur Specific [place] Urine Protein Urine Glucose (UA) Urine Ketones Urine Occult Blood Urine Nitrate Urine Bilirubin Ur Bilirubin Confirm Urine Urobilinogen Ur Leukocyte Esterase Urine RBC Urine WBC Ur Squamous Epith Cells Urine Bacteria Hyaline Casts Urine Mucus Ur Culture Indicated? Vol Urine Centrifuged Nasal Screen MRSA (PCR) Not detected SARS-CoV-2 (PCR) Influenza A (RT-PCR) Influenza B (RT-PCR) RSV (PCR) 09/20/24 06:00 WBC 9.1 RBC 3.74 L Hgb 10.4 L Hct 31.9 L MCV 85.3 MCH 27.8 MCHC 32.5 RDW 14.6 Plt Count 250 Neut % (Auto) 60.9 Lymph % (Auto) 27.3 [place] % (Auto) 7.1 Eos % (Auto) 4.2 H Baso % (Auto) 0.5 Neut # (Auto) 5500 Lymph # (Auto) 2500 [place] # (Auto) 600 Eos # (Auto) 400 Baso # (Auto) 0 PT INR APTT VBG pH VBG pCO2 VBG pO2 VBG HCO3 VBG Total CO2 VBG O2 Saturation VBG Base Excess FiO2 % Sodium 139 Potassium 3.6 Chloride 104 Carbon Dioxide 30 BUN 12 Creatinine 0.67 Estimated GFR > 60 BUN/Creatinine Ratio 17.9 Glucose 126 H Lactate Calcium 8.5 Phosphorus 3.2 Magnesium 1.9 Total Bilirubin AST ALT Alkaline Phosphatase Total Creatine Kinase Troponin I NT-Pro-B Natriuret Pep Total Protein Albumin Globulin Albumin/Globulin Ratio Procalcitonin Urine Color Urine Appearance Urine pH Ur Specific [place] Urine Protein Urine Glucose (UA) Urine Ketones Urine Occult Blood Urine Nitrate Urine Bilirubin Ur Bilirubin Confirm Urine Urobilinogen Ur Leukocyte Esterase Urine RBC Urine WBC Ur Squamous Epith Cells Urine Bacteria Hyaline Casts Urine Mucus Ur Culture Indicated? Vol Urine Centrifuged Nasal Screen MRSA (PCR) SARS-CoV-2 (PCR) Influenza A (RT-PCR) Influenza B (RT-PCR) RSV (PCR) Assessment & Plan <Helen Santos - Last Filed: 09/20/24 17:51> Assessment and plan Plan #Severe sepsis This is most likely due to untreated cellulitis. She was initially hypotensive, hypoxic, tachycardic, and tachypneic. Initial labs showed leukocytosis, elevated creatinine and BUN, elevated lactate. Her condition is improving and she is no longer septic. Her afebrile, normotensive, and RR and HR are back to normal. WBC has decreased from 16.9 to 9.1. Lactate levels returned to normal from 2.9 to 0.9. However, she is still needing norepinephrine to keep her BP elevated. Plan: wean NE and monitor BP. Check BMP tomorrow morning. #Cellulitis #Intertrigo She has severe intertrigo associated with cellulitis with purulent ulcerations on her left breast and non-purulent ulcerations along right inframammary crease. The purulence is also malodorous, which makes a fungal infection more likely. The edema in her left arm is most likely a result from the cellulitis and from her leaning on her left side predominantly. The cellulitis is most likely due to her sedentary state, leaning predominantly on her left side, and decrease in bathing and cleaning. In addition, she has been noted herself drooling on her left side when she sleeps, which can be contributing to the infection. Plan: -Wound culture pending -Blood cultures pending -Continue vancomycin 2000mg IV and cefepime 1g IV. -Apply Nystatin topical -PT/OT referral -Home health and wound care referral #Acute on chronic hypercapnic respiratory failure This is improving. She is no longer wheezing on physical exam. She was able to come off BiPap and is currently on 2L O2 NC, satting at 99%. -Monitor O2 saturations. #Elevated glucose Her labs returned with elevated glucose at 126. She has no history of diabetes, however, with multiple comorbidities, we should check hemoglobin A1c. -Order Hemoglobin A1c. #KAREN Improved. Most likely this was due to severe dehydration. Since receiving IVF, Cr has decreased from 1.96 to 0.67. -Continue pausing home lisinopril due to not currently hypertensive and still needing vasopressors. #Migraines She has a history of migraines and reports having them currently. She normally takes Excedrin migraine at home. -Tylenol as needed. Diet - low carbohydrate diet DVT ppx - Heparin, SCDs Code- full Dispo - ICU Time-Based Coding :: [TOTAL MINUTES] spent with patient and on the chart (including review of chart, obtaining history, exam, reviewing outside data, placing orders, documenting exam and treatment plan, and counseling patient) on [DATE]. <Rolanda Raymond MD - Last Filed: 09/20/24 18:28> Assessment & Plan narrative: #Severe sepsis This is most likely due to untreated cellulitis. She was initially hypotensive, hypoxic, tachycardic, and tachypneic. Initial labs showed leukocytosis, elevated creatinine and BUN, elevated lactate. Her condition is improving and she is no longer septic. She is afebrile with RR and HR are back to normal. Stable on pressure support. WBC has decreased from 16.9 to 9.1. Lactate levels returned to normal from 2.9 to 0.9. Plan: wean NE and monitor BP. Check BMP tomorrow morning. #Cellulitis #Intertrigo She has severe intertrigo associated with cellulitis with purulent ulcerations on her left breast and non-purulent ulcerations along right inframammary crease. The purulence is also malodorous, which makes a fungal infection more likely. The edema in her left arm is most likely a result from the cellulitis and from her leaning on her left side predominantly. The cellulitis is most likely due to her sedentary state, leaning predominantly on her left side, and decrease in bathing and cleaning. In addition, she has been noted herself drooling on her left side when she sleeps, which can be contributing to the infection. Plan: -Wound culture collected (after abx started) -Blood cultures pending -Continue vancomycin 2000mg IV and cefepime 1g IV. -Apply Nystatin topical -Home health and wound care referral #Acute on chronic hypercapnic respiratory failure This is improving. She is no longer wheezing on physical exam. She was able to come off BiPap and is currently on 2L O2 NC, satting at 99%. -Monitor O2 saturations. -Continue oxygen support as needed #Hyperglycemia Her labs returned with elevated glucose at 126. She has no history of diabetes, however, with multiple comorbidities, is at high risk. -Hemoglobin A1c in the AM. #KAREN Improved. Most likely this was due to severe dehydration. Since receiving IVF, Cr has decreased from 1.96 to 0.67. -Continue to trend #Migraines She has a history of migraines and reports having them currently. She normally takes Excedrin migraine at home. -Tylenol as needed. #HTN Currently requiring pressure support -Hold home Lisinopril for now #Weakness Likely due to chronic deconditioning, infection. Pt feels scopolamine patch prescribed to help with drooling also contributing -PT/OT consult #Chronic psychiatric diagnoses Stable -Continue home medications Diet - low carbohydrate diet DVT ppx - Heparin, SCDs Code- full Dispo - ICU status for now. Anticipate at least 2-3 more days until infection better controlled and can transition to PO medications. I verified the medical student?s documentation in the medical record. I personally performed a physical exam and medical decision making. I made appropriate changes to the documentation and the assessment and plan based on my verification, exam and medical decision making. [facility] <Rolanda Raymond MD - Last Filed: 09/20/24 18:28> Charge Codes Initial inpatient/observation care: [id number]
--- NOTE | 2024-09-20 12:40 | CM.DPC ---
DCP Cont. Reviewed EMR and team rounds for status updates. Went to meet with pt in the room, however she was found to be sleeping. Will plan to meet with pt tomorrow once she is more awake in order to discuss plan for improved home environment in order to obtain in-home caregivers.
[2024-09-20] MEDS: NYSTATIN POWDER 15GM 1 APPLIC TOP ×2 (14:18→20:29)
[2024-09-20] MEDS: PANTOPRAZOLE 40 MG VIAL 20 MG IV (14:19)
[2024-09-20] MEDS: ONDANSETRON 4 MG/2 ML INJ IV (14:34)
[2024-09-20] MEDS: VORTIOXETINE 20 MG 20 EACH PO (14:39)
[2024-09-20] MEDS: LAMOTRIGINE 200 MG 1 EACH PO (14:40)
--- NOTE | 2024-09-20 15:56 | PM.CN ---
History of Present Illness Consult details Date Patient Seen: 09/20/24 Time Patient Seen: 15:30 Chief complaint: SOB Narrative: The patient is a 44-year-old female with a history of hypertension, asthma, morbid obesity, chronic pain, limited mobility, and multiple psychiatric problems who was admitted to the hospital yesterday with evidence for sepsis. She was found to have intertrigo beneath both breasts with extensive erythema involving the chest and anterior chest wall. There were scattered ulcerations on the anterior left breast. Some purulent drainage was noted from the ulcers. The patient reports that she has had similar problems in the past. The patient presented with hypotension and leukocytosis and was admitted to the hospital and placed on broad spectrum IV antibiotics. Cultures pending. Meds Home Medications and Allergies Home Medications Medication Instructions Recorded Confirmed Type cholecalciferol (vitamin D3) 100 2,000 unit PO BID #180 caps 11/26/21 09/20/24 Rx mcg (4,000 unit) capsule albuterol sulfate 90 mcg/actuation 2 puff inhalation Q4-6H PRN 03/19/22 09/20/24 Rx aerosol inhaler (ProAir HFA) Shortness Of Breath #8.5 grams mhmgtuf-vchxjfifbxmvx-wqpqibph 250 1 tab PO Q4-6H PRN Migraine 09/18/22 09/20/24 History mg-250 mg-65 mg tablet (Excedrin Headache Extra Strength) electronic blood pressure cuff #1 ea 12/09/22 09/20/24 Rx mechanical lift chair #1 ea 12/09/22 09/20/24 Rx elevated toilet seat #1 ea 02/10/23 09/20/24 Rx ivabradine 5 mg tablet (Corlanor) 5 mg PO BID 07/04/23 09/20/24 History lidocaine 5 % topical ointment 1 applic topical BID PRN for pain 12/04/23 09/20/24 Rx #49.222 grams Lamictal 200 mg tablet 200 mg PO DAILY #90 tabs 01/05/24 09/20/24 Rx (lamotrigine) fluticasone furoate 200 1 inh PO ONCE PM #120 ea 02/26/24 09/20/24 Rx mcg-vilanterol 25 mcg/dose inhalation powder (Breo Ellipta) omeprazole 40 mg capsule,delayed 40 mg PO BID #180 caps 03/18/24 09/20/24 Rx release umeclidinium 62.5 mcg/actuation 1 inh PO DAILY #90 ea 03/18/24 09/20/24 Rx blister powder for inhalation (Incruse Ellipta) dupilumab 300 mg/2 mL subcutaneous 300 mg (2 mL) SUBCUT Q2W #4 mL 06/03/24 09/20/24 Rx pen injector (Dupixent) montelukast 10 mg tablet 10 mg PO QPM #90 tabs 06/10/24 09/20/24 Rx diazepam 5 mg tablet 5 mg PO TID #90 tabs 06/11/24 09/20/24 Rx hydroxyzine HCl 50 mg tablet 50 mg PO QID PRN anxiety #360 tabs 07/06/24 09/20/24 Rx pregabalin 150 mg capsule (Lyrica) 150 mg PO BID #60 caps 07/23/24 09/20/24 Rx lisinopril 40 mg tablet 40 mg PO DAILY #90 tabs 08/02/24 09/20/24 Rx scopolamine base 1 mg over 3 days 1 patch transdermal Q3D PRN excess 08/02/24 09/20/24 Rx transdermal patch salivation #10 ea baclofen 20 mg tablet 40 mg (2 x 20 mg) PO QPM #60 tabs 09/06/24 09/20/24 Rx prazosin 2 mg capsule 4 mg (2 x 2 mg) PO ONCE PM #200 09/16/24 09/20/24 Rx caps Trintellix 20 mg PO DAILY 09/20/24 09/20/24 History latanoprost 0.005 % eye drops 1 drp EYE-BOTH BEDTIME 09/20/24 09/20/24 History levalbuterol HCl 1.25 mg/3 mL 1.25 mg inhalation Q4H PRN Wheezing 09/20/24 09/20/24 History solution for nebulization ondansetron 8 mg disintegrating 8 mg PO Q8H PRN Nausea And Vomiting 09/20/24 09/20/24 History tablet Allergies Allergy/AdvReac Type Severity Reaction Status Date / Time bupropion [BUPROPION] Allergy Mild facial rash Verified 10/29/23 11:15 hydrocodone [HYDROCODONE] Allergy Mild rash Verified 10/29/23 11:15 iodine [IODINE] Allergy Mild edema Verified 10/29/23 11:15 lithium AdvReac Severe suicidal Verified 10/29/23 11:15 thoughts lorazepam AdvReac Severe worsens Verified 10/29/23 11:15 panic trazodone AdvReac Severe suicidal Verified 10/29/23 11:15 thoughts diphenhydramine AdvReac Intermediate panic Verified 10/29/23 11:15 [From Benadryl] attacks Review of Systems Integumentary/Breasts Comments: Chronic infra-mammary rash Exam Vital Signs (past 8 hours): - 09/20/24 08:00 09/20/24 08:00 09/20/24 08:00 Pulse Rate 82 Respiratory Rate 16 Blood Pressure 124/62 Pulse Oximetry 99 Oxygen Delivery Method Nasal Cannula 09/20/24 08:30 09/20/24 08:30 09/20/24 09:00 Pulse Rate 86 Respiratory Rate 18 Blood Pressure 116/57 L 117/55 L Pulse Oximetry 99 Oxygen Delivery Method 09/20/24 09:00 09/20/24 09:30 09/20/24 09:31 Pulse Rate 85 89 Respiratory Rate 30 H 22 Blood Pressure 110/54 L Pulse Oximetry 100 100 Oxygen Delivery Method 09/20/24 09:31 09/20/24 10:00 09/20/24 10:00 Pulse Rate 91 H 93 H Respiratory Rate 20 22 Blood Pressure 105/54 L Pulse Oximetry 100 100 Oxygen Delivery Method 09/20/24 10:30 09/20/24 10:30 09/20/24 11:00 Pulse Rate 94 H Respiratory Rate 16 Blood Pressure 120/59 L 116/56 L Pulse Oximetry 100 Oxygen Delivery Method 09/20/24 11:00 09/20/24 11:30 09/20/24 11:30 Pulse Rate 99 H 94 H Respiratory Rate 18 21 Blood Pressure 116/53 L Pulse Oximetry 98 100 Oxygen Delivery Method 09/20/24 12:00 09/20/24 12:00 09/20/24 12:30 Pulse Rate 97 H Respiratory Rate 19 Blood Pressure 126/59 L 130/64 Pulse Oximetry 96 Oxygen Delivery Method 09/20/24 12:30 09/20/24 13:00 09/20/24 13:00 Pulse Rate 94 H 96 H Respiratory Rate 19 19 Blood Pressure 137/95 H Pulse Oximetry 100 100 Oxygen Delivery Method 09/20/24 13:30 09/20/24 13:30 09/20/24 14:00 Pulse Rate 92 H Respiratory Rate 19 Blood Pressure 127/60 134/63 Pulse Oximetry 99 Oxygen Delivery Method 09/20/24 14:00 09/20/24 14:30 09/20/24 14:30 Pulse Rate 94 H 97 H Respiratory Rate 19 18 Blood Pressure 135/70 Pulse Oximetry 97 98 Oxygen Delivery Method 09/20/24 15:00 09/20/24 15:00 09/20/24 15:30 Pulse Rate 95 H Respiratory Rate 13 Blood Pressure 109/53 L 119/62 Pulse Oximetry 100 Oxygen Delivery Method 09/20/24 15:30 Pulse Rate 96 H Respiratory Rate 21 Blood Pressure Pulse Oximetry 100 Oxygen Delivery Method Fraction of Inspired Oxygen 28 Oxygen Delivery Method Nasal Cannula Oxygen Flow Rate 4 Const Other: Obese female who is awake and alert, no apparent distress Skin Other: Erythema involving both breasts and anterior chest, severe intertrigo along infra-mammary portion of breast, several scattered superficial ulcerations anterior left breast draining serous fluid, linear ulceration along the right infra-mammary crease Objective Labs 09/20/24 06:00 09/20/24 06:00 Labs: Laboratory Results - last 24 hr 09/19/24 09/19/24 09/19/24 13:16 15:54 18:30 WBC RBC Hgb Hct MCV MCH MCHC RDW Plt Count Neut % (Auto) Lymph % (Auto) [place] % (Auto) Eos % (Auto) Baso % (Auto) Neut # (Auto) Lymph # (Auto) [place] # (Auto) Eos # (Auto) Baso # (Auto) APTT 38 H VBG pH 7.36 VBG pCO2 52.3 H VBG pO2 56 H VBG HCO3 30 H VBG Total CO2 29 VBG O2 Saturation 87 H VBG Base Excess 3.3 FiO2 % 30 % Sodium Potassium Chloride Carbon Dioxide BUN Creatinine Estimated GFR BUN/Creatinine Ratio Glucose Calcium Phosphorus Magnesium Total Creatine Kinase 52 Procalcitonin 0.135 Nasal Screen MRSA (PCR) Not detected 09/20/24 06:00 WBC 9.1 RBC 3.74 L Hgb 10.4 L Hct 31.9 L MCV 85.3 MCH 27.8 MCHC 32.5 RDW 14.6 Plt Count 250 Neut % (Auto) 60.9 Lymph % (Auto) 27.3 [place] % (Auto) 7.1 Eos % (Auto) 4.2 H Baso % (Auto) 0.5 Neut # (Auto) 5500 Lymph # (Auto) 2500 [place] # (Auto) 600 Eos # (Auto) 400 Baso # (Auto) 0 APTT VBG pH VBG pCO2 VBG pO2 VBG HCO3 VBG Total CO2 VBG O2 Saturation VBG Base Excess FiO2 % Sodium 139 Potassium 3.6 Chloride 104 Carbon Dioxide 30 BUN 12 Creatinine 0.67 Estimated GFR > 60 BUN/Creatinine Ratio 17.9 Glucose 126 H Calcium 8.5 Phosphorus 3.2 Magnesium 1.9 Total Creatine Kinase Procalcitonin Nasal Screen MRSA (PCR) [facility] Medical History Lumbar radiculopathy Cervical radiculopathy Low back pain Thoracic back pain Shoulder pain Neck pain Chronic migraine [place] use Suicide attempt by acetaminophen overdose Aspirin overdose Essential (primary) hypertension Tachycardia Rheumatoid arthritis Chronic cough Asthma Hayfever Agoraphobia Panic attacks PTSD (post-traumatic stress disorder) Depression Anxiety Migraines Chronic headaches Bursitis of left hip Scoliosis Chronic back pain Corneal pigmentation of both eyes MRSA infection Anemia Vertigo Tinnitus Recurrent sinusitis History of recurrent ear infection Hearing loss Partial blindness Interstitial cystitis Painful menstrual periods Ovarian cyst Irregular periods/menstrual cycles History of heavy periods Endometriosis Abnormal Pap smear of cervix Kidney infection (2002) Frequent UTI BRCA negative PUD (peptic ulcer disease) IBS (irritable bowel syndrome) Hemorrhoids GI bleeding GERD (gastroesophageal reflux disease) Gastroparesis Gastric ulcer Anal fissure (01/24/12) History of tilt table evaluation (05/02/15) Vaginal delivery Asthma with allergic rhinitis Fibromyalgia Nondiabetic gastroparesis (01/04/16) Irritable bowel syndrome with diarrhea (01/04/16) Chronic interstitial cystitis (01/04/16) History of partial hysterectomy (01/04/16) History of fracture of hip (01/04/16) History of gastrointestinal hemorrhage (01/04/16) Surgical History History of colonoscopy (01/10/15) History of endoscopy (01/10/15) History of endoscopy (05/04/07) History of rectal surgery (01/24/12) Anesthesia complication History of hip surgery (12/13/92) Status post laparoscopy (05/04/07) History of bladder surgery (02/2001) Status post laparoscopy (1999) History of third molar tooth extraction (1997) History of bladder suspension procedure (06/14/13) Status post dilation and curettage (10/2009) Status post laparoscopic cholecystectomy (03/11/06) Status post appendectomy (08/1996) Status post hysterectomy (05/07/10) Family History Brother Age: 48 Back pain Brother Age: 47 Migraines Child Age: 21 Mental health problem Child Age: 20 Asperger syndrome Father Age: 71 Anger Mother Age: 65 Hypothyroidism Anxiety Stroke Sister Age: 48 Thyroid cancer Brain tumor Grandfather No problems noted. Grandmother Brain tumor Grandfather No problems noted. Grandmother Ovarian cancer Social History marital status: number of children: 2 household members: children lives independently: Yes caregiver/support person: Yes housing: house Tobacco & Substance Use Smoking Status: Never smoker second hand exposure: No alcohol intake: current substance use type: does not use Assessment & Plan Assessment and plan (1) Cellulitis: Qualifiers: Site of cellulitis: trunk Site of cellulitis of trunk: chest wall Qualified Code(s): L03.313 - Cellulitis of chest wall Status: Acute (2) Erythema intertrigo: Status: Acute (3) Pressure ulcer of other site, unspecified stage: Status: Acute Assessment & Plan narrative: The patient has severe intertrigo associated with cellulitis and with ulcerations left breast and along right infra-mammary crease. Need to improve the moisture balance and treat any associated cutaneous candidiasis as well as ongoing treatment for the apparent cellulitis. Recommend dressing changes with Interdry and nystatin powder, continue antibiotic therapy, follow up at wound center after discharge. Time-Based Coding :: [40 MINUTES] spent with patient and on the chart (including review of chart, obtaining history, exam, reviewing outside data, placing orders, documenting exam and treatment plan, and counseling patient) on [09/20/24].
[2024-09-20] MEDS: PREGABALIN 75 MG CAPSULE 150 MG PO (20:30)
[2024-09-20] MEDS: PRAZOSIN 1 MG CAPSULE 4 MG PO (20:30)
[2024-09-20] MEDS: diazePAM 10 MG/2 ML SYRINGE IV (21:32)
[2024-09-20] MEDS: MELATONIN 3 MG TABLET PO (21:42)
[2024-09-20] MEDS: hydrOXYzine HCL 25 MG TABLET 50 MG PO (21:42)
[2024-09-21] VITALS (34 sets, daily range): BP systolic 95–142; BP diastolic 51–77; PULSE 74–113; RESP 16–30; TEMP 36.3–37; O2SAT 92–100
[2024-09-21] MEDS: CEFEPIME 1 GM in SODIUM CHLORIDE 0.9% 100 ML IV ×2 (02:16→14:12)
[2024-09-21 02:40] LABS: Acinetobacter calcoa-baumannii Not Detected (Not Detect); Bacteroides fragilis Not Detected (Not Detect); Candida albicans Not Detected (Not Detect); Candida auris Not Detected (Not Detect); Candida glabrata Not Detected (Not Detect); Candida krusei Not Detected (Not Detect); Candida parapsilosis Not Detected (Not Detect); Candida tropicalis Not Detected (Not Detect); Cryptococcus neoformans/gatti Not Detected (Not Detect); Enterobacter cloacae complex Not Detected (Not Detect); Enterobacterales Not Detected (Not Detect); Enterococcus faecalis Not Detected (Not Detect); Enterococcus faecium Not Detected (Not Detect); Haemophilus influenzae Not Detected (Not Detect); Klebsiella aerogenes Not Detected (Not Detect); Listeria monocytogenes Not Detected (Not Detect); Neisseria meningitidis Not Detected (Not Detect); Proteus species Not Detected (Not Detect); Pseudomonas aeruginosa Not Detected (Not Detect); Salmonella species Not Detected (Not Detect); Serratia marcescens Not Detected (Not Detect); Staphylococcus epidermidis Detected (Not Detect); Staphylococcus lugdunensis Not Detected (Not Detect); Staphylococcus species Detected (Not Detect); Stenotrophomonas maltophilia Not Detected (Not Detect); Streptococcus agalactiae (Gr B Not Detected (Not Detect); Streptococcus pneumonia Not Detected (Not Detect); Streptococcus pyogenes (Gr A) Not Detected (Not Detect); Streptococcus species Not Detected (Not Detect); mecA/C Resistance Not Detected (Not Detect)
[2024-09-21] MEDS: HEPARIN 5,000 UNIT/ML VIAL 5000 UNIT SUBCUT ×3 (06:04→20:27)
[2024-09-21 06:18] LABS: Add Manual Diff / Slide Review NO; Basophils Absolute Auto 0 /uL (0-100); Basophils Percent Auto 0.7 % (0-2); Eosinophils Absolute Auto 300 /uL (0-450); Eosinophils Percent Auto 4.2 % (2-4); Hematocrit 30.6 % (36-46); Hemoglobin 9.9 g/dL (12.0-16.0); Lymphocytes Absolute Auto 2800 /uL (1100-4500); Lymphocytes Percent Auto 40.9 % (25-40); Mean Corpuscular HGB Conc 32.4 % (30-36); Mean Corpuscular Hemoglobin 27.4 PG (26-34); Mean Corpuscular Volume 84.8 fL (80-100); Monocytes Absolute Auto 600 /uL (0-900); Monocytes Percent Auto 8.4 % (3-14); Neutrophils Absolute Auto 3100 /uL (1500-7000); Neutrophils Percent Auto 45.8 % (50-75); Platelet Count 245 X10^3/uL (150-400); Red Blood Cell Count 3.61 X10^6/uL (4.0-5.2); Red Cell Distribution Width 14.2 % (11.6-14.8); White Blood Cell Count 6.9 X10^3/uL (4.5-11.0)
[2024-09-21 06:32] LABS: BUN Creatinine Ratio 13.8 (6-22); Blood Urea Nitrogen 8 mg/dL (7-17); Calcium 8.7 mg/dL (8.4-10.2); Carbon Dioxide 35 mmol/L (22-32); Chloride 100 mmol/L (98-107); Estimated Glomerular Filt Rate > 60 mL/min (>60); Glucose 97 mg/dL (70-100); HEMOLYSIS < 15 (0-50); Potassium 3.4 mmol/L (3.4-5.1); Sodium 137 mmol/L (137-145)
[2024-09-21 06:34] LABS: Hemoglobin A1C% w Est Avg Glu 5.2 % (4.0-6.0)
[2024-09-21] MEDS: BUDESONIDE 0.5 MG/2 ML NEB INH ×2 (07:16→19:34)
[2024-09-21] MEDS: ALBUTEROL 2.5 MG/3 ML NEB (ADULT) INH ×3 (07:16→18:16)
[2024-09-21 08:07] LABS: Vancomycin Trough 14.1 ug/mL (10-20)
[2024-09-21] MEDS: CAFFEINE PO (08:39)
[2024-09-21] MEDS: PREGABALIN 75 MG CAPSULE 150 MG PO ×2 (08:39→22:16)
[2024-09-21] MEDS: hydrOXYzine HCL 25 MG TABLET 50 MG PO ×2 (08:39→22:16)
[2024-09-21] MEDS: ASPIRIN PO (08:39)
[2024-09-21] MEDS: VANCOMYCIN TROUGH 1 REQUEST MISC (08:39)
[2024-09-21] MEDS: ACETAMINOPHEN PO (08:39)
[2024-09-21] MEDS: LAMOTRIGINE 200 MG 1 EACH PO (08:39)
--- NOTE | 2024-09-21 08:39 | P.PN_ITS ---
Subjective Subjective Date Patient Seen: 09/21/24 Interval history: This morning the pt reports feeling improved. She states her breathing is back to baseline. She denies any pain. She continues to be concerned about her lower extremity weakness and getting around at home. Exam Vital Signs (past 8 hours): - 09/21/24 01:00 09/21/24 01:00 09/21/24 01:30 Temperature 98.1 F Pulse Rate 88 Blood Pressure 107/59 L 123/61 Pulse Oximetry 98 09/21/24 01:30 09/21/24 02:00 09/21/24 02:00 Temperature Pulse Rate 90 86 Blood Pressure 115/59 L Pulse Oximetry 100 99 09/21/24 02:30 09/21/24 02:30 09/21/24 02:30 Temperature Pulse Rate 87 Blood Pressure 127/63 127/63 Pulse Oximetry 100 09/21/24 03:00 09/21/24 03:00 09/21/24 03:30 Temperature Pulse Rate 93 H Blood Pressure 132/58 L 127/58 L Pulse Oximetry 100 09/21/24 03:30 09/21/24 04:00 09/21/24 04:00 Temperature Pulse Rate 86 92 H Blood Pressure 127/69 Pulse Oximetry 98 100 09/21/24 04:30 09/21/24 04:30 09/21/24 04:30 Temperature 97.4 F L Pulse Rate 87 Blood Pressure 131/62 131/62 Pulse Oximetry 97 09/21/24 05:00 09/21/24 05:00 09/21/24 05:30 Temperature Pulse Rate 86 Blood Pressure 137/66 137/75 Pulse Oximetry 100 09/21/24 05:30 09/21/24 06:00 09/21/24 06:00 Temperature Pulse Rate 90 81 Blood Pressure 132/68 Pulse Oximetry 100 100 09/21/24 06:30 09/21/24 06:30 Temperature Pulse Rate 91 H Blood Pressure 142/65 H Pulse Oximetry 99 Fraction of Inspired Oxygen 28 SaO2/FiO2 Ratio 357 Oxygen Delivery Method Nasal Cannula Oxygen Flow Rate 2 Narrative Exam Narrative: Gen: NAD, sitting comfortably in bed CV: RRR, no murmurs Resp: clear to auscultation bilaterally Abd: soft, nontender Ext: nonpitting edema bilaterally Skin: Fissure under right breast with erythema extending to upper breast area with increased warmth, left breast with shallow ulcerations, no purulence noted today, significant erythema present; overall erythema minimally improved from yesterday Objective Labs 09/21/24 06:05 09/21/24 06:05 Labs: Laboratory Results - last 24 hr 09/19/24 09/21/24 09/21/24 14:30 06:05 07:19 WBC 6.9 RBC 3.61 L Hgb 9.9 L Hct 30.6 L MCV 84.8 MCH 27.4 MCHC 32.4 RDW 14.2 Plt Count 245 Neut % (Auto) 45.8 L Lymph % (Auto) 40.9 H [place] % (Auto) 8.4 Eos % (Auto) 4.2 H Baso % (Auto) 0.7 Neut # (Auto) 3100 Lymph # (Auto) 2800 [place] # (Auto) 600 Eos # (Auto) 300 Baso # (Auto) 0 Sodium 137 Potassium 3.4 Chloride 100 Carbon Dioxide 35 H BUN 8 Creatinine 0.58 Estimated GFR > 60 BUN/Creatinine Ratio 13.8 Glucose 97 Hemoglobin A1c 5.2 Calcium 8.7 Vancomycin Trough 14.1 A.calcoaceticus-baumannii cmplx PCR Not detected Bacteroides fragilis Not detected [place] albicans (PCR) Not detected [place] auris (PCR) Not detected C. glabrata (PCR) Not detected C. krusei (PCR) Not detected C. parapsilosis (PCR) Not detected C. tropicalis (PCR) Not detected C. neoform/gattii (PCR) Not detected Enterobacterales (PCR) Not detected E. cloacae complex PCR Not detected Enterococc faecalis PCR Not detected Enterococc faecium PCR Not detected E. coli (PCR) Not detected H. influenzae (PCR) Not detected Klebsiella aerogenes (PCR) Not detected Klebsiella oxytoca PCR Not detected Klebsiella pneumoniae Not detected List. monocytogenes PCR Not detected N. meningitidis (PCR) Not detected Proteus species (PCR) Not detected Salmonella spp. (PCR) Not detected Serratia marcescens PCR Not detected Staphylococcus sp PCR Detected Staph aureus (PCR) Not detected mecA/C & MREJ Resist Gene Not applicable mecA/C-Methicil Resis Gene Not detected mcr-1 Colistin Res Gene PCR Not applicable Staph epidermidis (PCR) Detected Staph lugdunensis PCR Not detected S. maltophilia (PCR) Not detected Streptococcus sp PCR Not detected Group A Strep (PCR) Not detected Strep agalactiae (PCR) Not detected Strep pneumoniae (PCR) Not detected P. aeruginosa (PCR) Not detected Nazia/B-Vanco Res Genes Not applicable blaIMP Car res Gene PCR Not applicable KPC-Carbap Res Gene PCR Not applicable blaNDM Car Res Gene PCR Not applicable OXA-48 Carbapenem Resis Gene (PCR) Not applicable blaVIM Car Res Gene PCR Not applicable CTX-M Gene Resistance (PCR) Not applicable [facility] Medical History Lumbar radiculopathy Cervical radiculopathy Low back pain Thoracic back pain Shoulder pain Neck pain Chronic migraine [place] use Suicide attempt by acetaminophen overdose Aspirin overdose Essential (primary) hypertension Tachycardia Rheumatoid arthritis Chronic cough Asthma Hayfever Agoraphobia Panic attacks PTSD (post-traumatic stress disorder) Depression Anxiety Migraines Chronic headaches Bursitis of left hip Scoliosis Chronic back pain Corneal pigmentation of both eyes MRSA infection Anemia Vertigo Tinnitus Recurrent sinusitis History of recurrent ear infection Hearing loss Partial blindness Interstitial cystitis Painful menstrual periods Ovarian cyst Irregular periods/menstrual cycles History of heavy periods Endometriosis Abnormal Pap smear of cervix Kidney infection (2002) Frequent UTI BRCA negative PUD (peptic ulcer disease) IBS (irritable bowel syndrome) Hemorrhoids GI bleeding GERD (gastroesophageal reflux disease) Gastroparesis Gastric ulcer Anal fissure (01/24/12) History of tilt table evaluation (05/02/15) Vaginal delivery Asthma with allergic rhinitis Fibromyalgia Nondiabetic gastroparesis (01/04/16) Irritable bowel syndrome with diarrhea (01/04/16) Chronic interstitial cystitis (01/04/16) History of partial hysterectomy (01/04/16) History of fracture of hip (01/04/16) History of gastrointestinal hemorrhage (01/04/16) Surgical History History of colonoscopy (01/10/15) History of endoscopy (01/10/15) History of endoscopy (05/04/07) History of rectal surgery (01/24/12) Anesthesia complication History of hip surgery (12/13/92) Status post laparoscopy (05/04/07) History of bladder surgery (02/2001) Status post laparoscopy (1999) History of third molar tooth extraction (1997) History of bladder suspension procedure (06/14/13) Status post dilation and curettage (10/2009) Status post laparoscopic cholecystectomy (03/11/06) Status post appendectomy (08/1996) Status post hysterectomy (05/07/10) Family History Brother Age: 48 Back pain Brother Age: 47 Migraines Child Age: 21 Mental health problem Child Age: 20 Asperger syndrome Father Age: 71 Anger Mother Age: 65 Hypothyroidism Anxiety Stroke Sister Age: 48 Thyroid cancer Brain tumor Grandfather No problems noted. Grandmother Brain tumor Grandfather No problems noted. Grandmother Ovarian cancer Social History marital status: number of children: 2 household members: children lives independently: Yes caregiver/support person: Yes housing: house Smoking Status: Never smoker second hand exposure: No alcohol intake: current substance use type: does not use Assessment & Plan Assessment & Plan narrative: #Severe sepsis This is most likely due to untreated cellulitis. Weaned from pressure support yesterday. Resolved. #Cellulitis #Intertrigo She has severe intertrigo associated with cellulitis with purulent ulcerations on her left breast and non-purulent ulcerations along right inframammary crease. The purulence is also malodorous, which makes a fungal infection more likely. The edema in her left arm is most likely a result from the cellulitis and from her leaning on her left side predominantly. The cellulitis is most likely due to her sedentary state, leaning predominantly on her left side, and decrease in bathing and cleaning. In addition, she has been noted herself drooling on her left side when she sleeps, which can be contributing to the infection. Plan: -Wound culture collected (after abx started) - no growth yet -Blood cultures pending - no growth yet -Continue vancomycin 2000mg IV and cefepime 1g IV. -Apply Nystatin topical -Home health and wound care referral #Acute on chronic hypercapnic respiratory failure Now stable on baseline home O2 -Monitor O2 saturations. -Continue oxygen support as needed #Hyperglycemia A1C 5.2, no diabetes #KAREN Improved. Most likely this was due to severe dehydration. #Anemia Mild anemia. Most likely anemia of chronic disease with normal MCV, but will confirm with labs. Not at transfusion level. -B12, folate, iron profile tomorrow AM -Continue to trend #Migraines She has a history of migraines and reports having them currently. She normally takes Excedrin migraine at home. -Tylenol as needed. #HTN Currently requiring pressure support -Hold home Lisinopril for now #Weakness Likely due to chronic deconditioning, infection. Pt feels scopolamine patch prescribed to help with drooling also contributing -PT/OT consult #Chronic psychiatric diagnoses Stable -Continue home medications Diet - low carbohydrate diet DVT ppx - Heparin, SCDs Code- full Dispo - Transition to floor status today. Discussed with pt working on performing normal hygiene more independently today. Potentially stable for d/c tomorrow, however ideally with ongoing PT. Home health previously declined referrals due to the state of the pts home. Care management to continue to work with the pt on this as well. Time-Based Coding :: [TOTAL MINUTES] spent with patient and on the chart (including review of chart, obtaining history, exam, reviewing outside data, placing orders, documenting exam and treatment plan, and counseling patient) on [DATE]. PROFEE Charge codes Subsequent inpatient/observation care: 16534
[2024-09-21] MEDS: ONDANSETRON 4 MG/2 ML INJ IV (08:40)
[2024-09-21] MEDS: VANCOMYCIN 2,000 MG/400 ML PIGGYBACK 200 MG IV ×2 (08:40→20:27)
[2024-09-21] MEDS: PANTOPRAZOLE 40 MG VIAL 20 MG IV (08:40)
[2024-09-21] MEDS: VORTIOXETINE 20 MG 20 EACH PO (08:55)
[2024-09-21] MEDS: POTASSIUM CHLORIDE 20 MEQ TAB 40 MEQ PO (09:05)
--- NOTE | 2024-09-21 09:05 | PT.IIE ---
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) Panic disorder [episodic paroxysmal anxiety] (09/19/24) Generalized anxiety disorder (09/19/24) Anxiety disorder, unspecified (09/19/24) Post-traumatic stress disorder, unspecified (09/19/24) Essential (primary) hypertension (09/19/24) Moderate persistent asthma, uncomplicated (09/19/24) Acute respiratory failure with hypercapnia (09/19/24) Chronic respiratory failure with hypoxia (09/19/24) Acute and chronic respiratory failure with hypoxia (09/19/24) Acute and chronic respiratory failure with hypercapnia (09/19/24) Cellulitis of chest wall (09/19/24) Erythema intertrigo (09/19/24) Pressure ulcer of other site, unspecified stage (09/19/24) Other specified soft tissue disorders (09/19/24) Acute kidney failure, unspecified (09/19/24) Somnolence (09/19/24) Severe sepsis without septic shock (09/19/24) Surgical History (Last Reviewed 09/20/24 @ 16:02 by Jeet Carbone MD) Anesthesia complication History of bladder surgery (02/2001) History of bladder suspension procedure (06/14/13) History of colonoscopy (01/10/15) History of endoscopy (05/04/07) History of endoscopy (01/10/15) History of hip surgery (12/13/92) History of rectal surgery (01/24/12) History of third molar tooth extraction (1997) Status post appendectomy (08/1996) Status post dilation and curettage (10/2009) Status post hysterectomy (05/07/10) Status post laparoscopic cholecystectomy (03/11/06) Status post laparoscopy (1999) Status post laparoscopy (05/04/07) Medical History (Last Reviewed 09/20/24 @ 16:02 by Jeet Carbone MD) Abnormal Pap smear of cervix Agoraphobia Anal fissure (01/24/12) Anemia Anxiety Aspirin overdose Asthma Asthma with allergic rhinitis BRCA negative Bursitis of left hip Cervical radiculopathy Chronic back pain Chronic cough Chronic headaches Chronic interstitial cystitis (01/04/16) Chronic migraine Corneal pigmentation of both eyes Depression Endometriosis Essential (primary) hypertension Fibromyalgia Frequent UTI Gastric ulcer Gastroparesis GERD (gastroesophageal reflux disease) GI bleeding Hayfever Hearing loss Hemorrhoids History of fracture of hip (01/04/16) History of gastrointestinal hemorrhage (01/04/16) History of heavy periods History of partial hysterectomy (01/04/16) History of recurrent ear infection History of tilt table evaluation (05/02/15) IBS (irritable bowel syndrome) Interstitial cystitis Irregular periods/menstrual cycles Irritable bowel syndrome with diarrhea (01/04/16) Kidney infection (2002) [place] use Low back pain Lumbar radiculopathy Migraines MRSA infection Neck pain Nondiabetic gastroparesis (01/04/16) Ovarian cyst Painful menstrual periods Panic attacks Partial blindness PTSD (post-traumatic stress disorder) PUD (peptic ulcer disease) Recurrent sinusitis Rheumatoid arthritis Scoliosis Shoulder pain Suicide attempt by acetaminophen overdose Tachycardia Thoracic back pain Tinnitus Vaginal delivery Vertigo Physical Therapy Inpatient Evaluation/Re-Eval M1 PT/OT-IP Prior Functional Status Start: 09/21/24 07:39 Freq: NEEDED Status: Active Protocol: Document 09/21/24 10:44 [facility] (Rec: 09/21/24 12:04 [facility] [id number]) Medical Review Prior Functional Status Medical History Reviewed Yes Diet/Fluid Consistency Regular Communication WNL Mobility and Gait amb at home holding blakely, had HH prior who encouraged and practiced w/a walker -can be hard to get through doorways Activities of Daily Living and IADL's kids do more of cooking and cleaning and will help her as needed Social History Household Members children Living Arrangements Apartment/Condo Home Environment Standard Height Toilet,Tub/ Shower Home Equipment Tub Transfer Bench,Grab Bars In Shower Additional Social History Comment 2 adult children-son w/ASD and dgt who pt notes has some problems, has hospital bed M2 PT-IP Current Condition Start: 09/21/24 07:39 Freq: NEEDED Status: Active Protocol: Document 09/21/24 10:44 [facility] (Rec: 09/21/24 12:04 [facility] [id number]) Physical Therapy Current Condition Current Condition Evaluation Date 09/21/24 Treatment Diagnosis Sepsis and wound at breast M3 PT-IP Subjective Start: 09/21/24 07:39 Freq: NEEDED Status: Active Protocol: Document 09/21/24 10:44 [facility] (Rec: 09/21/24 12:04 [facility] [id number]) Subjective Physical Therapy Visit Type Type Initial Evaluation Visit Start Time 08:25 Visit Stop Time 08:59 Number of MEN'S SWIM COACH Visits 0 Physical Therapy Visit Comments Patient Comments Pt agreeable to get up M4 PT-IP Mobility and Gait Start: 09/21/24 07:39 Freq: NEEDED Status: Active Protocol: Document 09/21/24 10:44 [facility] (Rec: 09/21/24 12:04 [facility] [id number]) PT-Bed Mobility Assessment Supine to Sit Supine to Sit Minimal Assistance,Head of Bed Elevated,Bedrails Scooting Scooting to Edge of Bed Standby Assistance PT-Transfer Assessment Sit to and From Stand Sit to and from Stand Minimal Assistance,Use of Upper Extremities Equipment Transfer Assistive Device Gait Belt,Front Wheeled Walker Orthotic/Prosthetic Devices or Brace: No Transfers Transfer Destination Chair Transfer Technique Stand Step Pivot Transfer Ability Level of Assist Minimal Assistance Comments Mobility Comments supine to sit w/HOB elevated ( BP in elevated supine position 125/57 and seated 137/77) but did need to stop part way d/t dizzines upon sitting up. sit to stand w/PT stabilizing walker and cues for hand to push from bed and min A w/min A w/FWW to transfer to chair. O2 dropped to 88% during sit to stand and pt cued for deep breaths. Stood initially at FWW for RN to wipe pt buttocks . Pt left w/call light in reach in chair Gait Assessment Gait Gait Assistance Required: Minimum Assistance Distance (Feet) 3 Assistive Devices Assistive Device Gait Belt,Front Wheeled Walker Gait Deviations General Gait Pattern Decreased Stride Length, Decreased Feet Clearance, Flexed Trunk Factors Limiting Gait Function Factors Limiting Gait Function Decreased Activity Tolerance, Decreased Strength,Pain,Poor Balance,Poor Safety Awareness PT-Balance Assessment Sitting Balance and Reactions Static Sitting Balance Ability Good Standing Balance and Reactions Static Standing Balance Ability Poor Dynamic Standing Balance Ability Poor Device Used FWW M5 PT-IP Objective Assessments Start: 09/21/24 07:39 Freq: NEEDED Status: Active Protocol: Document 09/21/24 10:44 [facility] (Rec: 09/21/24 12:04 [facility] [id number]) Orientation Orientation/Cognition Level of Alertness Alert Language Function Ability No Deficits Noted Safety Awareness Decreased Safety Awareness Memory Description No Deficits Noted Strength Lower Extremity Strength Hip 3+/5 grossly M6 PT-IP Treatment Start: 09/21/24 07:39 Freq: NEEDED Status: Active Protocol: Document 09/21/24 10:44 [facility] (Rec: 09/21/24 12:04 [facility] [id number]) Physical Therapy Treatment Education Education Provided Safety Other Treatments Other Treatment Performed edu re: getting walker for home and beside commode for over toliet M7 PT-IP Assessment and Plan Start: 09/21/24 07:39 Freq: NEEDED Status: Active Protocol: Document 09/21/24 10:44 [facility] (Rec: 09/21/24 12:04 [facility] [id number]) PT Summary Assessment and Plan Potential Rehabilitation Potential Good Status of Condition at Evaluation Unstable Summary Impairments Pain,ROM,Strength,Balance,Bed Mobility,Transfers,Gait, Activity Tolerance Assessment Summary Pt presents w/recent inc weakness w/sepsis dx and hx of mult falls including at toilet recently with limited medical equipment at home. She is limited with strength, balance and mobility and required min A with all mobility and had O2 drop to 88 % with this activity and heart monitor noted tachycardia which RN was informed of. She will require further PT to work on mobility prior to return home but would benefit from PT upon return home. Goals Bed Mobility Goal Independent Transfer Goal Independent Gait Goal Standby Assistance Gait Distance 75ft w/LRAD Days to Meet Goals 10 Frequency of Treatment Frequency Of Treatment Once a Day Treatment Plan Physical Therapy Treatment Plan Bed Mobility Training,Transfer Training,Gait Training, Therapeutic Exercise,Balance Retraining,Discharge Planning, Neuromuscular Re-ed, Coordination Retraining Recommendations To Nursing Amount of Assist Needed 1 Person Assist Discharge Recommendations PT Discharge Recommendations Home with Assistance,Home Health Equipment Needed for Home Before walker, bedside commode Discharge Transportation Needs at Discharge Private Vehicle
--- NOTE | 2024-09-21 10:20 | OT.IP.EVAL ---
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) Panic disorder [episodic paroxysmal anxiety] (09/19/24) Generalized anxiety disorder (09/19/24) Anxiety disorder, unspecified (09/19/24) Post-traumatic stress disorder, unspecified (09/19/24) Essential (primary) hypertension (09/19/24) Moderate persistent asthma, uncomplicated (09/19/24) Acute respiratory failure with hypercapnia (09/19/24) Chronic respiratory failure with hypoxia (09/19/24) Acute and chronic respiratory failure with hypoxia (09/19/24) Acute and chronic respiratory failure with hypercapnia (09/19/24) Cellulitis of chest wall (09/19/24) Erythema intertrigo (09/19/24) Pressure ulcer of other site, unspecified stage (09/19/24) Other specified soft tissue disorders (09/19/24) Acute kidney failure, unspecified (09/19/24) Somnolence (09/19/24) Severe sepsis without septic shock (09/19/24) Past Medical History (Last Reviewed 09/20/24 @ 16:02 by Jeet Carbone MD) Abnormal Pap smear of cervix Agoraphobia Anal fissure (01/24/12) Anemia Anxiety Aspirin overdose Asthma Asthma with allergic rhinitis BRCA negative Bursitis of left hip Cervical radiculopathy Chronic back pain Chronic cough Chronic headaches Chronic interstitial cystitis (01/04/16) Chronic migraine Corneal pigmentation of both eyes Depression Endometriosis Essential (primary) hypertension Fibromyalgia Frequent UTI Gastric ulcer Gastroparesis GERD (gastroesophageal reflux disease) GI bleeding Hayfever Hearing loss Hemorrhoids History of fracture of hip (01/04/16) History of gastrointestinal hemorrhage (01/04/16) History of heavy periods History of partial hysterectomy (01/04/16) History of recurrent ear infection History of tilt table evaluation (05/02/15) IBS (irritable bowel syndrome) Interstitial cystitis Irregular periods/menstrual cycles Irritable bowel syndrome with diarrhea (01/04/16) Kidney infection (2002) [place] use Low back pain Lumbar radiculopathy Migraines MRSA infection Neck pain Nondiabetic gastroparesis (01/04/16) Ovarian cyst Painful menstrual periods Panic attacks Partial blindness PTSD (post-traumatic stress disorder) PUD (peptic ulcer disease) Recurrent sinusitis Rheumatoid arthritis Scoliosis Shoulder pain Suicide attempt by acetaminophen overdose Tachycardia Thoracic back pain Tinnitus Vaginal delivery Vertigo Surgical History (Last Reviewed 09/20/24 @ 16:02 by Jeet Carbone MD) Anesthesia complication History of bladder surgery (02/2001) History of bladder suspension procedure (06/14/13) History of colonoscopy (01/10/15) History of endoscopy (05/04/07) History of endoscopy (01/10/15) History of hip surgery (12/13/92) History of rectal surgery (01/24/12) History of third molar tooth extraction (1997) Status post appendectomy (08/1996) Status post dilation and curettage (10/2009) Status post hysterectomy (05/07/10) Status post laparoscopic cholecystectomy (03/11/06) Status post laparoscopy (1999) Status post laparoscopy (05/04/07) Occupational Therapy Inpatient Evaluation/Re-Eval M1 PT/OT-IP Prior Functional Status Start: 09/21/24 07:39 Freq: NEEDED Status: Active Protocol: Document 09/21/24 12:58 [facility] (Rec: 09/21/24 13:13 [facility] [id number]) Medical Review Prior Functional Status Medical History Reviewed Yes Diet/Fluid Consistency Regular Communication WNL Mobility and Gait amb at home holding blakely, had HH prior who encouraged and practiced w/a walker -can be hard to get through doorways Activities of Daily Living and IADL's kids do more of cooking and cleaning and will help her as needed. Pt states her daughter assist with dressing her LLE at times and for showering if needed. Social History Household Members children Living Arrangements Apartment/Condo Home Environment Standard Height Toilet,Tub/ Shower Home Equipment Tub Transfer Bench,Grab Bars In Shower Additional Social History Comment 2 adult children-son w/ASD and dgt who pt notes has some problems, has hospital bed M2 OT-IP Current Condition Start: 09/21/24 12:58 Freq: Status: Active Protocol: Document 09/21/24 12:58 [facility] (Rec: 09/21/24 13:13 [facility] [id number]) Occupational Therapy Current Condition Current Condition Evaluation Date 09/21/24 Treatment Diagnosis Sepsis, cellulitis Diagnosis Onset Date 09/19/24 M3 OT- IP Subjective and Pain Start: 09/21/24 12:58 Freq: Status: Active Protocol: Document 09/21/24 12:58 [facility] (Rec: 09/21/24 13:13 [facility] [id number]) OT- Subjective Occupational Therapy Visit Type Type Initial Evaluation Visit Start Time 10:20 Visit Stop Time 10:55 Occupational Therapy Visit Comments Patient Comments Pt agreed to get up. Patient/Caregiver Goals To go home. OT Pain Assessment Pain When Pain Assessed At Rest Pain Present Pain Present Denied Pain M4 OT- IP ADL's Start: 09/21/24 12:58 Freq: Status: Active Protocol: Document 09/21/24 12:58 [facility] (Rec: 09/21/24 13:13 [facility] [id number]) OT ADL-Grooming Comments OT Grooming Comments Pt able to do while seated in the recliner. OT ADL-Oral Care Comments Oral Care Comments Not performed. OT ADL-Dressing Comments OT Dressing Comments Pt able to doff her socks but needing assist to kaur her socks. Pt state has a leg brace for LLE that she had has but does not wear per pt. Pt states she furniture cruises OT ADL-Bathing Comments OT Bathing Comments Pt will continue to benefit from assist. M5 OT- IP IADL's Start: 09/21/24 12:58 Freq: Status: Active Protocol: Document 09/21/24 12:58 [facility] (Rec: 09/21/24 13:13 [facility] [id number]) OT-Instrumental Activities of Daily Living Home Safety Awareness Awareness of Need for Assistance at Home Good Awareness Ability to Problem Solve Emergency Able to Problem Solve Situations Medication Management Medication Management Comments Pt states does her own. Money Management Money Management Comments Pt states does her own. Meal Preparation Meal Preparation Caregiver Provides Assist Industrial Laborer Industrial Laborer Caregiver Provides Assist M6 OT- IP Functional Cognition Start: 09/21/24 12:58 Freq: Status: Active Protocol: Document 09/21/24 12:58 [facility] (Rec: 09/21/24 13:13 [facility] [id number]) Cognitive Factors Limiting Selfcare Function Cognitive Ability Level of Alertness Alert Patient Orientation Name,Age,Birthday,Month,Date, Year,Day of Week,Place, Situation Attention Span Ability Capable of Focused Attention, Capable of Sustained Attention Ability to Follow Commands Able to Follow One Step Commands Cognitive Tests SLUMS Pt realizes not at her baseline for needs, pt would benefit from SLUMS. Cognitive Comments Cognitive Assessment Comments Pt able to follow commands for ADL and mobility needs. OT- Vision and Hearing OT- Hearing Assessment OT- Hearing Assessment WFL OT- Vision Assessment Visual Acuity Glasses All The Time Visual Attentiveness WFL Occular Pursuits WFL Visual Convergence WFL M7 OT- IP Mobility and Balance Start: 09/21/24 12:58 Freq: Status: Active Protocol: Document 09/21/24 12:58 [facility] (Rec: 09/21/24 13:13 [facility] [id number]) OT-Transfer Assessment Sit to and From Stand Sit to and from Stand Contact Guard Assistance Comments Mobility Comments CGA to the FWW. Pt states looking to get a FWW and 4ww for home use as not able to stand from long periods of time at home. Pt heavily leans to the left while seated and standing. OT- Balance Assessment Sitting Balance and Reactions Static Sitting Balance Ability Good Dynamic Sitting Balance Ability Fair Standing Balance and Reactions Static Standing Balance Ability Fair M8 OT- IP Objective Assessments Start: 09/21/24 12:58 Freq: Status: Active Protocol: Document 09/21/24 12:58 [facility] (Rec: 09/21/24 13:13 [facility] [id number]) OT Gross Range of Motion Upper Extremity Range of Motion Assessment Within Functional Limits OT Strength Comments Strength Comments BUE 4+/5 OT- Coordination Assessment Upper Extremity Finger to Nose Test Within Functional Limits Pt states her right hand tremors at times making it hard to type, suggested to have her arm supported to help stabilize in order to use her hand. M9 OT- IP Assessment and Plan Start: 09/21/24 12:58 Freq: Status: Active Protocol: Document 09/21/24 12:58 [facility] (Rec: 09/21/24 13:13 [facility] [id number]) OT Summary Assessment and Plan Potential Rehabilitation Potential Good Analytic Complexity at Evaluation Moderate Summary OT Impairments Pain,Strength,Balance, Functional Cognition, Functional Mobility,Dressing, Toileting,Bathing,Toilet Transfers,Shower Transfers, Activity Tolerance Progress Towards Goals Slow Progress due to Pain,Slow Progress due to Medical Issues,Slow Progress due to Activity Tolerance Assessment Summary Pt MOD complexity and main barriers are pain, decreased activity tolerance and will benefit from home health and assist at home. Pt looking into getting a FWW and 4ww and will also benefit from LB dressing equipment and BSC. Goals Self-Feeding Goal Independent Grooming Goal Independent Dressing Goal Independent,Business Applications Analyst,Sock Aid Toileting Goal Independent Bathing Goal Minimal Assistance Toilet Transfer Goal Independent Shower Transfer Goal Contact Guard Assistance Days to Meet Goals 7 Frequency of Treatment Other frequency 5x/week Treatment Plan OT Treatment Plan ADL Training,Functional Mobility,Patient/Family Education,Discharge Planning Other Treatment Recommendations and Next Standing ADL's Treatment Focus Discharge Recommendations OT Discharge Recommendations Home with Assistance,Home Health Home Equipment Needs BSC, Fww/4ww, LB dressing equipment Transportation Needs at Discharge Private Vehicle
[2024-09-21 11:16] LABS: Vancomycin Peak 49.7 ug/mL (20-40)
[2024-09-21] MEDS: NYSTATIN POWDER 15GM 1 APPLIC TOP ×2 (12:47→20:28)
--- NOTE | 2024-09-21 13:03 | CM.DPC ---
DCP Cont. Reviewed EMR and team rounds for status updates. Faxed referral to [facility], pending response. Per chart hx, pt has had Home Health in the past, however no Home Health agencies will go out to the home due to the dirty environment. Will update pt once we know if they will accept. Pt was able to work with PT today, plan is transfer pt to floor care out of ICU, cont. to work with therapies and IV ABO's, tentative d/c home for tomorrow. *Will need to setup [employer] transportation for home through Medicaid transportation.
[2024-09-21] MEDS: diazePAM 5 MG TABLET PO (17:18)
[2024-09-21] MEDS: CHOLECALCIFEROL (VITAMIN D3) 1,000 UNIT TABLET 2000 UNIT PO (20:27)
[2024-09-21] MEDS: LATANOPROST 0.005% OPHTH 2.5 ML 1 DROPS EYE-BOTH (21:29)
[2024-09-21] MEDS: ACETAMINOPHEN 325 MG TABLET 650 MG PO (21:30)
[2024-09-21] MEDS: MELATONIN 3 MG TABLET PO (22:15)
[2024-09-21] MEDS: PANTOPRAZOLE DR 20 MG TABLET PO (22:15)
[2024-09-21] MEDS: PRAZOSIN 1 MG CAPSULE 4 MG PO (22:16)
[2024-09-22] VITALS: BP 136/80; PULSE 86; RESP 19; TEMP 36.6; O2SAT 97
[2024-09-22] MEDS: CEFEPIME 1 GM in SODIUM CHLORIDE 0.9% 100 ML IV (01:55)
[2024-09-22 04:00] VITALS: BP 130/74; PULSE 96; RESP 18; TEMP 36.6; O2SAT 97
[2024-09-22] MEDS: PANTOPRAZOLE DR 20 MG TABLET PO (06:05)
[2024-09-22] MEDS: HEPARIN 5,000 UNIT/ML VIAL 5000 UNIT SUBCUT (06:05)
[2024-09-22 06:06] LABS: Add Manual Diff / Slide Review NO; Basophils Absolute Auto 0 /uL (0-100); Basophils Percent Auto 0.7 % (0-2); Eosinophils Absolute Auto 400 /uL (0-450); Eosinophils Percent Auto 5.9 % (2-4); Hematocrit 30.6 % (36-46); Hemoglobin 9.9 g/dL (12.0-16.0); Lymphocytes Absolute Auto 2800 /uL (1100-4500); Lymphocytes Percent Auto 41.7 % (25-40); Mean Corpuscular HGB Conc 32.4 % (30-36); Mean Corpuscular Hemoglobin 27.4 PG (26-34); Mean Corpuscular Volume 84.5 fL (80-100); Monocytes Absolute Auto 500 /uL (0-900); Monocytes Percent Auto 7.2 % (3-14); Neutrophils Absolute Auto 3000 /uL (1500-7000); Neutrophils Percent Auto 44.5 % (50-75); Platelet Count 255 X10^3/uL (150-400); Red Blood Cell Count 3.62 X10^6/uL (4.0-5.2); Red Cell Distribution Width 14.2 % (11.6-14.8); White Blood Cell Count 6.8 X10^3/uL (4.5-11.0)
[2024-09-22 06:11] VITALS: PULSE 95; RESP 20; O2SAT 95
[2024-09-22] MEDS: ALBUTEROL 2.5 MG/3 ML NEB (ADULT) INH ×2 (06:11→10:49)
[2024-09-22] MEDS: BUDESONIDE 0.5 MG/2 ML NEB INH (06:11)
[2024-09-22 06:23] LABS: BUN Creatinine Ratio 19.4 (6-22); Blood Urea Nitrogen 12 mg/dL (7-17); Calcium 8.9 mg/dL (8.4-10.2); Carbon Dioxide 33 mmol/L (22-32); Chloride 99 mmol/L (98-107); Estimated Glomerular Filt Rate > 60 mL/min (>60); Glucose 100 mg/dL (70-100); HEMOLYSIS 24 (0-50); Magnesium 1.6 mg/dL (1.6-2.3); Potassium 3.5 mmol/L (3.4-5.1); Sodium 135 mmol/L (137-145)
[2024-09-22 06:31] LABS: HEMOLYSIS < 15 (0-50); Iron 57 ug/dL (37-170)
[2024-09-22 06:42] LABS: Percent Iron Saturation 25 % (15-50); Total Iron Binding Capacity 230 ug/dL (265-497); Transferrin 192 mg/dL (206-381)
[2024-09-22 07:36] LABS: Folate 4.2 ng/mL (2.76-20.0); Vitamin B12 379 pg/mL (239-931)
[2024-09-22] MEDS: ONDANSETRON 4 MG ODT 8 MG PO (07:45)
[2024-09-22] MEDS: diazePAM 5 MG TABLET PO (07:46)
[2024-09-22] MEDS: ACETAMINOPHEN 325 MG TABLET 650 MG PO (07:49)
[2024-09-22] MEDS: VANCOMYCIN 2,000 MG/400 ML PIGGYBACK 200 MG IV (07:50)
[2024-09-22] MEDS: hydrOXYzine HCL 25 MG TABLET 50 MG PO (07:50)
[2024-09-22 08:00] VITALS: BP 114/54; PULSE 102; RESP 18; TEMP 36.3; O2SAT 93
[2024-09-22] MEDS: PREGABALIN 75 MG CAPSULE 150 MG PO (09:42)
[2024-09-22] MEDS: CHOLECALCIFEROL (VITAMIN D3) 1,000 UNIT TABLET 2000 UNIT PO (09:43)
[2024-09-22] MEDS: VORTIOXETINE 20 MG 20 EACH PO (09:45)
[2024-09-22] MEDS: NYSTATIN POWDER 15GM 1 APPLIC TOP (09:49)
[2024-09-22] MEDS: LAMOTRIGINE 200 MG 1 EACH PO (09:57)
--- NOTE | 2024-09-22 10:48 | PT.IPTN ---
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) Panic disorder [episodic paroxysmal anxiety] (09/19/24) Generalized anxiety disorder (09/19/24) Anxiety disorder, unspecified (09/19/24) Post-traumatic stress disorder, unspecified (09/19/24) Essential (primary) hypertension (09/19/24) Moderate persistent asthma, uncomplicated (09/19/24) Acute respiratory failure with hypercapnia (09/19/24) Chronic respiratory failure with hypoxia (09/19/24) Acute and chronic respiratory failure with hypoxia (09/19/24) Acute and chronic respiratory failure with hypercapnia (09/19/24) Cellulitis of chest wall (09/19/24) Erythema intertrigo (09/19/24) Pressure ulcer of other site, unspecified stage (09/19/24) Other specified soft tissue disorders (09/19/24) Acute kidney failure, unspecified (09/19/24) Somnolence (09/19/24) Severe sepsis without septic shock (09/19/24) Physical Therapy Treatment Note M2 PT-IP Current Condition Start: 09/21/24 07:39 Freq: NEEDED Status: Active Protocol: Document 09/21/24 10:44 [facility] (Rec: 09/21/24 12:04 [facility] [id number]) Physical Therapy Current Condition Current Condition Evaluation Date 09/21/24 Treatment Diagnosis Sepsis and wound at breast M3 PT-IP Subjective Start: 09/21/24 07:39 Freq: NEEDED Status: Active Protocol: Document 09/22/24 10:44 [facility] (Rec: 09/22/24 10:48 [facility] [id number]) Subjective Physical Therapy Visit Type Type Treatment Note Visit Start Time 10:05 Visit Stop Time 10:35 Number of COLLECTIONS ASSOCIATE Visits 0 M4 PT-IP Mobility and Gait Start: 09/21/24 07:39 Freq: NEEDED Status: Active Protocol: Document 09/22/24 10:44 [facility] (Rec: 09/22/24 10:48 [facility] [id number]) PT-Bed Mobility Assessment Supine to Sit Supine to Sit Independent,Head of Bed Elevated,Bedrails Scooting Scooting to Edge of Bed Standby Assistance PT-Transfer Assessment Sit to and From Stand Sit to and from Stand Standby Assistance,Use of Upper Extremities Equipment Transfer Assistive Device Gait Belt Orthotic/Prosthetic Devices or Brace: No Gait Assessment Gait Gait Assistance Required: Contact Guard Assist Distance (Feet) 30 Assistive Devices Assistive Device Gait Belt,Front Wheeled Walker Orthotic/Prosthetic Devices or Brace: No Gait Deviations General Gait Pattern Decreased Stride Length, Decreased Feet Clearance Factors Limiting Gait Function Factors Limiting Gait Function Decreased Activity Tolerance, Decreased Strength,Pain,Poor Balance,Poor Safety Awareness Comments Gait Comments supine to sit w/HOB elevated and bed rails indep and able to scoot to EOB. SBA for sit to stand and them amb w/FWW to sink CGA then to bathroom CGA and was able to doff brief CGA and wiped seated indep. Did ask PT to do wet wipe. Pt hen amb to chair for rest. O294% then amb to counter to wash face and teeth and leaned to counter CGA. Amb back to chair d/t dizziness. O2 94% and BP141/78. Pt left with call light in reach in chair. M5 PT-IP Objective Assessments Start: 09/21/24 07:39 Freq: NEEDED Status: Active Protocol: Document 09/21/24 10:44 [facility] (Rec: 09/21/24 12:04 [facility] [id number]) Orientation Orientation/Cognition Level of Alertness Alert Language Function Ability No Deficits Noted Safety Awareness Decreased Safety Awareness Memory Description No Deficits Noted Strength Lower Extremity Strength Hip 3+/5 grossly M6 PT-IP Treatment Start: 09/21/24 07:39 Freq: NEEDED Status: Active Protocol: Document 09/22/24 10:44 [facility] (Rec: 09/22/24 10:48 [facility] [id number]) Physical Therapy Treatment Education Education Provided Safety M7 PT-IP Assessment and Plan Start: 09/21/24 07:39 Freq: NEEDED Status: Active Protocol: Document 09/22/24 10:44 [facility] (Rec: 09/22/24 10:48 [facility] [id number]) PT Summary Assessment and Plan Summary Impairments Pain,ROM,Strength,Balance,Bed Mobility,Transfers,Gait, Activity Tolerance Assessment Summary Pt had improved mobility but still had dec balance and stability today when mobilizng along w/dec activity tolerance and required frequent sitting breaks. Likely will need house set up w/more chair and will require walker prior to returning home . Goals Bed Mobility Goal Independent Transfer Goal Independent Gait Goal Standby Assistance Gait Distance 75ft w/LRAD Days to Meet Goals 10 Frequency of Treatment Frequency Of Treatment Once a Day Treatment Plan Physical Therapy Treatment Plan Bed Mobility Training,Transfer Training,Gait Training, Therapeutic Exercise,Balance Retraining,Discharge Planning, Neuromuscular Re-ed, Coordination Retraining Recommendations To Nursing Amount of Assist Needed 1 Person Assist Discharge Recommendations PT Discharge Recommendations Home with Assistance,Home Health Equipment Needed for Home Before walker, bedside commode Discharge Transportation Needs at Discharge Private Vehicle
--- NOTE | 2024-09-22 11:40 | CM.DPC ---
Addendum entered and electronically signed by AZAR Butterfield 09/22/24 13:53: [facility] has accepted pt for care, they will be reaching out to her within the next 48-hours to schedule PT/OT. Called pt and left a message to update her. Original Note: DCP Cont. Reviewed EMR and team rounds for status updates. Pt has been medically cleared for home d/c. Called [employer], they can transport her at 1:00, notified MD and care team of plan. No further needs indicated for CM assistance at this time.
--- NOTE | 2024-09-22 11:50 | PM.DS.IH.1 ---
History of Present Illness History of Present Illness Date Patient Seen: 09/22/24 Time Patient Seen: 09:00 Chief complaint: SOB Narrative: Dorinda Harper is a 44 year old female, with history of hypertension, asthma, obesity, chronic pain, fibromyalgia, gastroporesis, various psychiatric problems including suicide attempt from overdose, who presents with difficulty breathing and wheezing. She presented to the ER yesterday afternoon due to daughter's concern for low oxygen level and weakness at home. She uses 3L O2 at home. From ER note, she was minimally engaged with flat affect and stated she feels poorly. Denied shortness of breath, chest pain, abdominal pain. Was noted to have significant intertrigo and cellulitis of the breasts and left axilla, apparently told ER physician this is normal for her. ER workup was notable for WBC 16.9 with neutrophilic predominance, platelets 413, BUN 21, creatinine 1.96, GFR 32, lactate 2.9. VBG 7.36/61.3/50/35. EKG sinus tach without ischemic changes. Troponin negative, BNP normal, procalcitonin negative, UA without evidence of infection, rapid flu/RSV/SARS/CoV-2 negative. She was noted to be hypotensive and clinically dehydrated. She received 4L IVF in the ER. She was started on pressors, broad-spectrum antibiotics (cefepime and vancomycin), Sanchez catheter was placed. BiPAP was started tolerated well. Blood cultures were drawn. On interview today, she reports that she's noticed a rash on left side of her chest since April 2024. It has been progressively getting worse. She mentioned that she's had similar rashes on/off for 2 years, previously treating it with nystatin and had received wound care. For the last 5 months, she has not had any treatments. She has had trouble with bathing and has been mostly sedentary in bed due to chronic pain. She remembers being brought in to the hospital. Currently, she reports having pain in her left arm and right chest and a headache. The pain in her right chest is sharp, tingling, and trujillo. No associated worsening SOB, palpitations, diaphoresis. She also reports having a sore on her mouth. She reports the headache comes and goes and is in the frontal region. She also has a history of migraines. She denies any pain on the left chest/breast area, or abdominal pain. Discharge Providers Provider Date of admission: 09/19/24 17:10 Discharge Date: 09/22/24 Primary care physician: Rolanda Raymond MD Consults: 09/19/24 18:26 Consult to Discharge Planning Routine Comment: Consult to Wound Care Routine Comment: Consulting Provider: [facility] 09/20/24 12:38 Consult to Occupational Therapy Evaluate & Treat Comment: Physician Instructions: Evaluate and treat Consult to Physical Therapy Evaluate & Treat Comment: Physician Instructions: Evaluate and Treat Discharge provider: Rolanda Raymond MD Summary Hospital Course Discharge Diagnosis: Severe sepsis Cellulitis of breasts Acute on chronic hypercapnic respiratory failure Asthma KAREN HTN Altered mental status Anxiety with panic attacks Depression PTSD Hyperglycemia Migraines Weakness Hospital Course: The pt presented with sepsis due to cellulitis, and acute respiratory failure requiring BiPAP. She was initiated on IV antibiotics with Cefepime and Vancomycin, and pressure support. Her pressure support was weaned by the next morning. Her BiPAP was weaned to her usual home O2 via NC. Her KAREN resolved with fluid resuscitation. The pts cellulitis continued to improve throughout her hospitalization. One of two blood cultures grew gram positive cocci, however the pt remained afebrile throughout her hospitalization and was stable the day of discharge after 3 days IV antibiotics. Growth was more likely contamination, but will be f/u as an outpatient. The pt will discharge to complete an additional 7 days of antibiotics. She will also f/u with wound care. She worked with PT while in the hospital, and will benefit from ongoing PT as an outpatient for strength/mobilization. Status at Discharge Cognitive/behavioral status at discharge: oriented Functional status at discharge: uses cane/walker Overall status at discharge: patient is progressing back to baseline Exam Vital Signs (past 8 hours): - 09/22/24 04:00 09/22/24 06:11 09/22/24 07:00 Temperature 97.8 F Pulse Rate 96 H 95 H Respiratory Rate 18 20 Blood Pressure 130/74 Pulse Oximetry 97 95 Oxygen Delivery Method Room Air Nasal Cannula CPAP Oxygen Flow Rate 0 0 Fraction of Inspired Oxygen 21 09/22/24 08:00 Temperature 97.4 F L Pulse Rate 102 H Respiratory Rate 18 Blood Pressure 114/54 L Pulse Oximetry 93 Oxygen Delivery Method Oxygen Flow Rate 0 Fraction of Inspired Oxygen Fraction of Inspired Oxygen 21 SaO2/FiO2 Ratio 452 Oxygen Delivery Method Nasal Cannula,CPAP Oxygen Flow Rate 0 Narrative Exam Narrative: Gen: NAD, sitting comfortably in bed CV: RRR, no murmurs Resp: clear to auscultation bilaterally Abd: soft, nontender Ext: nonpitting edema bilaterally Skin: Fissure under right breast with erythema extending to upper breast area without increased warmth, left breast with shallow ulcerations healing, no purulence noted today, significant erythema present; overall erythema significantly improved from yesterday Objective Labs 09/22/24 05:55 09/22/24 05:55 Labs: Laboratory Results - last 24 hr 09/22/24 05:55 WBC 6.8 RBC 3.62 L Hgb 9.9 L Hct 30.6 L MCV 84.5 MCH 27.4 MCHC 32.4 RDW 14.2 Plt Count 255 Neut % (Auto) 44.5 L Lymph % (Auto) 41.7 H [place] % (Auto) 7.2 Eos % (Auto) 5.9 H Baso % (Auto) 0.7 Neut # (Auto) 3000 Lymph # (Auto) 2800 [place] # (Auto) 500 Eos # (Auto) 400 Baso # (Auto) 0 Sodium 135 L Potassium 3.5 Chloride 99 Carbon Dioxide 33 H BUN 12 Creatinine 0.62 Estimated GFR > 60 BUN/Creatinine Ratio 19.4 Glucose 100 Calcium 8.9 Magnesium 1.6 Iron 57 TIBC 230 L % Saturation 25 Transferrin 192 L Vitamin B12 379 Folate 4.2 PFSH Medical History Lumbar radiculopathy Cervical radiculopathy Low back pain Thoracic back pain Shoulder pain Neck pain Chronic migraine Summer Set use Suicide attempt by acetaminophen overdose Aspirin overdose Essential (primary) hypertension Tachycardia Rheumatoid arthritis Chronic cough Asthma Hayfever Agoraphobia Panic attacks PTSD (post-traumatic stress disorder) Depression Anxiety Migraines Chronic headaches Bursitis of left hip Scoliosis Chronic back pain Corneal pigmentation of both eyes MRSA infection Anemia Vertigo Tinnitus Recurrent sinusitis History of recurrent ear infection Hearing loss Partial blindness Interstitial cystitis Painful menstrual periods Ovarian cyst Irregular periods/menstrual cycles History of heavy periods Endometriosis Abnormal Pap smear of cervix Kidney infection (2002) Frequent UTI BRCA negative PUD (peptic ulcer disease) IBS (irritable bowel syndrome) Hemorrhoids GI bleeding GERD (gastroesophageal reflux disease) Gastroparesis Gastric ulcer Anal fissure (01/24/12) History of tilt table evaluation (05/02/15) Vaginal delivery Asthma with allergic rhinitis Fibromyalgia Nondiabetic gastroparesis (01/04/16) Irritable bowel syndrome with diarrhea (01/04/16) Chronic interstitial cystitis (01/04/16) History of partial hysterectomy (01/04/16) History of fracture of hip (01/04/16) History of gastrointestinal hemorrhage (01/04/16) Surgical History History of colonoscopy (01/10/15) History of endoscopy (01/10/15) History of endoscopy (05/04/07) History of rectal surgery (01/24/12) Anesthesia complication History of hip surgery (12/13/92) Status post laparoscopy (05/04/07) History of bladder surgery (02/2001) Status post laparoscopy (1999) History of third molar tooth extraction (1997) History of bladder suspension procedure (06/14/13) Status post dilation and curettage (10/2009) Status post laparoscopic cholecystectomy (03/11/06) Status post appendectomy (08/1996) Status post hysterectomy (05/07/10) Family History Brother Age: 48 Back pain Brother Age: 47 Migraines Child Age: 21 Mental health problem Child Age: 20 Asperger syndrome Father Age: 71 Anger Mother Age: 65 Hypothyroidism Anxiety Stroke Sister Age: 48 Thyroid cancer Brain tumor Grandfather No problems noted. Grandmother Brain tumor Grandfather No problems noted. Grandmother Ovarian cancer Social History marital status: number of children: 2 household members: children lives independently: Yes caregiver/support person: Yes housing: house Smoking Status: Never smoker second hand exposure: No alcohol intake: current substance use type: does not use Discharge Plan Discharge Plan Patient Disposition: Home Health Service Discharge orders & Medications Prescriptions: New nystatin [Nystop] 100,000 unit/gram Powder 1 applic topical BID Qty: 60 0RF sulfamethoxazole-trimethoprim 800-160 mg tablet 1 tab PO BID Qty: 14 0RF Continued scopolamine base 1 mg over 3 days patch 3 day 1 patch transdermal Q3D PRN (Reason: excess salivation) Qty: 10 3RF cholecalciferol (vitamin D3) 100 mcg (4,000 unit) capsule 2,000 unit PO BID Qty: 180 1RF prazosin 2 mg capsule 4 mg PO ONCE PM Qty: 200 3RF lamotrigine [Lamictal] 200 mg tablet 200 mg PO DAILY Qty: 90 3RF Patient Comments: Patient states she needs to take the brand name, blue triangle pill. Off brand can cause suicidal ideation. hydroxyzine HCl 50 mg tablet 50 mg PO QID PRN (Reason: anxiety) Qty: 360 1RF albuterol sulfate [ProAir HFA] 90 mcg/actuation HFA aerosol inhaler 2 puff INHALATION Q4-6H PRN (Reason: Shortness Of Breath) Qty: 8.5 1RF (DME) mechanical lift chair See Rx Instructions .Route .MEDSUPPLY Qty: 1 0RF Rx Instructions: As directed, pt 359 pounds. (DME) electronic blood pressure cuff See Rx Instructions .Route .MEDSUPPLY Qty: 1 0RF Rx Instructions: As directed, to be used daily to monitor blood pressure (DME) elevated toilet seat See Rx Instructions .Route .MEDSUPPLY Qty: 1 0RF Rx Instructions: As directed lidocaine 5 % ointment 1 applic topical BID PRN (Reason: for pain) Qty: 49.222 1RF Breo Ellipta 200-25 mcg/dose blister with device 1 inh PO ONCE PM Qty: 120 5RF Incruse Ellipta 62.5 mcg/actuation blister with device 1 inh PO DAILY Qty: 90 3RF omeprazole 40 mg capsule,delayed release(DR/EC) 40 mg PO BID Qty: 180 3RF Dupixent Pen 300 mg/2 mL pen injector 300 mg SUBCUT Q2W Qty: 4 3RF montelukast 10 mg tablet 10 mg PO QPM Qty: 90 3RF diazepam 5 mg tablet 5 mg PO TID Qty: 90 2RF pregabalin [Lyrica] 150 mg capsule 150 mg PO BID Qty: 60 2RF lisinopril 40 mg tablet 40 mg PO DAILY Qty: 90 3RF baclofen 20 mg tablet 40 mg PO QPM Qty: 60 0RF latanoprost 0.005 % Drops 1 drp EYE-BOTH BEDTIME Trintellix 20 mg tablet 20 mg PO DAILY ondansetron 8 mg Tablet,Disintegrating 8 mg PO Q8H PRN (Reason: Nausea And Vomiting) levalbuterol HCl 1.25 mg/3 mL Solution For Nebulization 1.25 mg INHALATION Q4H PRN (Reason: Wheezing) Excedrin Extra Strength 250-250-65 mg tablet 1 tab PO Q4-6H PRN (Reason: Migraine Headache) Corlanor 5 mg tablet 5 mg PO BID Rx Instructions: must administer with a meal/food Follow up/Referrals: Rolanda Raymond MD [Primary Care Provider] - 09/29/24 10:00 am (Appt:09/29 @ 10:[address] Raymond please arrive 15 min prior to your scheduled appointment time ) Visit Report/Discharge Packet Stand Alone Forms: Patient Portal/API, Stroke Signs & Symptoms Discharge Data Primary Care Provider: Rolanda Raymond Discharges patient from system. Discharge Date/Time: 09/22/24 12:35 PROFEE Charge Codes Discharge inpatient/observation: [id number]
--- NOTE | 2024-09-22 12:43 | PC.NURSE ---
Patient is A&OX4, VSS, afebrile on RA. She is given IV vancomycine via central line this miguel JOHN at bedside evaluating patient. She is able to get up and ambulate using FWW. She requests to go home. Orders received from MD for discharge and removal PIV as well as her central line. She acknowledges understanding of medications including new medications sent to [place]. She is escorted via w/ch by [facility]OLOG[facility] to [facility] arranged transport to home by CM at approximately 1235 pm with all of her belongings and home meds.
== END 2024-09-22 12:35 | disposition home health service (06) | DRG 871 ==
LOC: ED 16:43 → AC 17:11 → ICU 17:39 → AC 09-21 13:39
PROVIDERS: Admitting Provider Family Medicine; Emergency Provider Emergency Medicine; PCP Family Medicine; Referring Provider Emergency Medicine; Visit Provider Family Medicine
DX: A41.9 Sepsis, unspecified organism (principal); J96.22 Acute and chronic respiratory failure with hypercapnia; N17.9 Acute kidney failure, unspecified; L03.313 Cellulitis of chest wall; F33.9 Major depressive disorder, recurrent, unspecified; Z68.41 Body mass index [BMI] 40.0-44.9, adult; R00.0 Tachycardia, unspecified; I95.9 Hypotension, unspecified; E86.0 Dehydration; R65.20 Severe sepsis without septic shock; J45.40 Moderate persistent asthma, uncomplicated; I10 Essential (primary) hypertension; R40.0 Somnolence; F43.10 Post-traumatic stress disorder, unspecified; F41.1 Generalized anxiety disorder; F40.01 Agoraphobia with panic disorder; D63.8 Anemia in other chronic diseases classified elsewhere; L30.4 Erythema intertrigo; G43.909 Migraine, unspecified, not intractable, without status migrainosus; E66.01 Morbid (severe) obesity due to excess calories; L89.899 Pressure ulcer of other site, unspecified stage; R73.9 Hyperglycemia, unspecified; Z99.81 Dependence on supplemental oxygen
CPT/HCPCS: 0241U; 36415; 36556; 70450; 71045; 80048; 80053; 80202; 81001; 82550; 82607; 82746; 82805; 83036; 83540; 83550; 83605; 83735; 83880; 84100; 84145; 84484; 85025; 85610; 85730; 87040; 87070; 87154; 87205; 87797; 93005; 93971; 94640; 94660; 96365; 96366; 96367; 97163; 97166; 97530; 97535; 99284; 99291; A9270; J0692; J1642; J1644; J2405; J2470; J3360; J7613

== ENCOUNTER 2025-06-01 07:13 | Emergency (ER) | payer MEDICARE, MEDICAID, SELFPAY ==
[2024-09-19 17:24] VITALS: BMI 43.6
[2024-09-20 07:43] VITALS: PULSE 79; RESP 16; O2SAT 100
[2025-06-01] VITALS (13 sets, daily range): BP systolic 111–127; BP diastolic 56–75; PULSE 75–108; RESP 16; TEMP 36.6; O2SAT 92–97
--- NOTE | 2025-06-01 07:29 | ED.FEMALEGU ---
HPI - Female Genitourinary General Chief complaint: Urogenital-Female Stated complaint: Sanchez pain Time Seen by Provider: 06/01/25 07:23 Source: patient and EMS Mode of arrival: EMS History of Present Illness HPI Narrative: Patient here for bladder pain. Started yesterday. Patient seen here May 08 and had urinary retention. Has Sanchez catheter in place the same 1 that was placed originally. Patient Urology appointment due to transportation needs. No fever chills. Patient was treated for UTI when she was seen here May 08. No other complaints at this time. Related Data Home Medications ?Medication ?Instructions ?Recorded ?Confirmed [id number] 250 1 tab PO Q4-6H PRN Migraine 09/18/22 10/04/24 mg-250 mg-65 mg tablet (Excedrin Headache Extra Strength) ivabradine 5 mg tablet (Corlanor) 5 mg PO BID 07/04/23 10/04/24 latanoprost 0.005 % eye drops 1 drp EYE-BOTH BEDTIME 09/20/24 10/04/24 levalbuterol HCl 1.25 mg/3 mL 1.25 mg inhalation Q4H PRN Wheezing 09/20/24 10/04/24 solution for nebulization Previous Rx's ?Medication ?Instructions ?Recorded cholecalciferol (vitamin D3) 100 2,000 unit PO BID #180 caps 11/26/21 mcg (4,000 unit) capsule albuterol sulfate 90 mcg/actuation 2 puff inhalation Q4-6H PRN 03/19/22 aerosol inhaler (ProAir HFA) Shortness Of Breath #8.5 grams electronic blood pressure cuff #1 ea 12/09/22 mechanical lift chair #1 ea 12/09/22 elevated toilet seat #1 ea 02/10/23 lidocaine 5 % topical ointment 1 applic topical BID PRN for pain 12/04/23 #49.222 grams scopolamine base 1 mg over 3 days 1 patch transdermal Q3D PRN excess 08/02/24 transdermal patch salivation #10 ea prazosin 2 mg capsule 4 mg (2 x 2 mg) PO ONCE PM #200 09/16/24 caps sulfamethoxazole 800 1 tab PO BID #14 tabs 09/22/24 mg-trimethoprim 160 mg tablet magnesium oxide 1,000 mg (2 x 500 mg magnesium) PO 09/30/24 DAILY #60 tabs melatonin 10 mg tablet 10 mg PO BEDTIME PRN sleep #30 tabs 09/30/24 lisinopril 40 mg tablet 40 mg PO DAILY #90 tabs 10/04/24 nystatin 100,000 unit/mL oral 400,000 unit (4 mL) PO QID #60 mL 10/04/24 suspension amoxicillin 875 mg-potassium 1 tab PO BID #14 tabs 10/07/24 clavulanate 125 mg tablet nystatin 100,000 unit/gram topical 1 applic topical BID #60 grams 10/11/24 powder (Nystop) Lamictal 200 mg tablet 200 mg PO DAILY #90 tabs 10/29/24 (lamotrigine) vortioxetine 20 mg tablet 20 mg PO DAILY #90 tabs 11/29/24 nystatin 100,000 unit/gram topical 1 applic topical BID #30 grams 01/03/25 ointment triamcinolone acetonide 0.025 % 1 applic topical BID #60 mL 01/03/25 lotion hydroxyzine HCl 50 mg tablet 50 mg PO QID PRN anxiety #360 tabs 01/17/25 umeclidinium 62.5 mcg/actuation 1 inh PO DAILY #90 ea 01/17/25 blister powder for inhalation (Incruse Ellipta) fluticasone furoate 200 1 inh PO ONCE PM #120 ea 01/24/25 mcg-vilanterol 25 mcg/dose inhalation powder (Breo Ellipta) glycopyrrolate 2 mg tablet 2 mg PO BID PRN secretions #60 tabs 02/02/25 omeprazole 40 mg capsule,delayed 40 mg PO BID #180 caps 03/23/25 release lactulose 20 gram oral packet 40 g PO .prn To help with bowel 04/04/25 movements #30 ea diazepam 5 mg tablet 5 mg PO TID #90 tabs 04/12/25 montelukast 10 mg tablet 10 mg PO QPM #90 tabs 04/20/25 pregabalin 150 mg capsule (Lyrica) 150 mg PO BID #60 caps 04/25/25 ondansetron 8 mg disintegrating 8 mg PO Q8H PRN for 05/16/25 tablet nausea/vomiting #90 tabs dupilumab 300 mg/2 mL subcutaneous See Rx Instructions .Route 05/24/25 pen injector (Dupixent) .COMPLEX #4 mL baclofen 20 mg tablet 40 mg (2 x 20 mg) PO QPM #180 tabs 05/30/25 cefdinir 300 mg capsule 300 mg PO BID #10 caps 06/01/25 phenazopyridine 200 mg tablet 200 mg PO TID PRN pain 6 doses #6 06/01/25 (Pyridium) tabs Allergies Allergy/AdvReac Type Severity Reaction Status Date / Time bupropion (BUPROPION) Allergy Mild facial rash Verified 06/01/25 07:19 hydrocodone (HYDROCODONE) Allergy Mild rash Verified 06/01/25 07:19 iodine (IODINE) Allergy Mild edema Verified 06/01/25 07:19 lithium AdvReac Severe suicidal Verified 06/01/25 07:19 thoughts lorazepam AdvReac Severe worsens Verified 06/01/25 07:19 panic trazodone AdvReac Severe suicidal Verified 06/01/25 07:19 thoughts diphenhydramine (From AdvReac Intermediate panic Verified 06/01/25 07:19 Benadryl) attacks Review of Systems Review of Systems Narrative: GENERAL: Negative chills, fatigue, malaise, fever, sweats. HEENT: Negative sinus pain, ear pain, sore throat RESPIRATORY: Negative dyspnea, cough CARDIOVASCULAR: Negative chest pain, palpitations GASTROINTESTINAL: Negative vomiting, nausea, positive abdominal pain : Negative dysuria, frequency, hematuria MUSCULOSKELETAL: Negative muscle or bony pain SKIN: Negative rash, skin lesions NEUROLOGIC: Negative weakness, numbness ROS Unobtainable: All systems reviewed & are unremarkable except as noted in HPI and below Patient History Medical History Lumbar radiculopathy Cervical radiculopathy Low back pain Thoracic back pain Shoulder pain Neck pain Chronic migraine [place] use Suicide attempt by acetaminophen overdose Aspirin overdose Essential (primary) hypertension Tachycardia Rheumatoid arthritis Chronic cough Asthma Hayfever Agoraphobia Panic attacks PTSD (post-traumatic stress disorder) Depression Anxiety Migraines Chronic headaches Bursitis of left hip Scoliosis Chronic back pain Corneal pigmentation of both eyes MRSA infection Anemia Vertigo Tinnitus Recurrent sinusitis History of recurrent ear infection Hearing loss Partial blindness Interstitial cystitis Painful menstrual periods Ovarian cyst Irregular periods/menstrual cycles History of heavy periods Endometriosis Abnormal Pap smear of cervix Kidney infection (2002) Frequent UTI BRCA negative PUD (peptic ulcer disease) IBS (irritable bowel syndrome) Hemorrhoids GI bleeding GERD (gastroesophageal reflux disease) Gastroparesis Gastric ulcer Anal fissure (01/24/12) History of tilt table evaluation (05/02/15) Vaginal delivery Asthma with allergic rhinitis Fibromyalgia Nondiabetic gastroparesis (01/04/16) Irritable bowel syndrome with diarrhea (01/04/16) Chronic interstitial cystitis (01/04/16) History of partial hysterectomy (01/04/16) History of fracture of hip (01/04/16) History of gastrointestinal hemorrhage (01/04/16) Surgical History History of colonoscopy (01/10/15) History of endoscopy (01/10/15) History of endoscopy (05/04/07) History of rectal surgery (01/24/12) Anesthesia complication History of hip surgery (12/13/92) Status post laparoscopy (05/04/07) History of bladder surgery (02/2001) Status post laparoscopy (1999) History of third molar tooth extraction (1997) History of bladder suspension procedure (06/14/13) Status post dilation and curettage (10/2009) Status post laparoscopic cholecystectomy (03/11/06) Status post appendectomy (08/1996) Status post hysterectomy (05/07/10) Family History Brother Age: 49 Back pain Brother Age: 48 Migraines Child Age: 22 Mental health problem Child Age: 21 Asperger syndrome Father Age: 72 Anger Mother Age: 66 Hypothyroidism Anxiety Stroke Sister Age: 49 Thyroid cancer Brain tumor Grandfather No problems noted. Grandmother Brain tumor Grandfather No problems noted. Grandmother Ovarian cancer Exam Narrative Exam Narrative: GENERAL: in no distress, not toxic not dyspneic HEAD: Normocephalic. EYES: Pupils equal round ENT: Mucous membranes moist. NECK: Trachea midline. CARDIOVASCULAR: Regular rate and rhythm RESPIRATORY: Clear to auscultation. Breath sounds equal bilaterally. No wheezes, rales, or rhonchi. GASTROINTESTINAL: Abdomen soft, mild suprapubic tenderness no peritoneal signs no guarding or rebound. Bowel sounds are present. NEURO: AOx4. Clear speech SKIN: Warm and dry PSYCH: Not anxious, is cooperative Initial Vital Signs Initial Vital Signs: Vital Signs Temperature 97.8 F 06/01/25 07:18 Pulse Rate 108 H 06/01/25 07:18 Respiratory Rate 16 06/01/25 07:18 Blood Pressure 123/68 06/01/25 07:18 Pulse Oximetry 96 06/01/25 07:18 Oxygen Delivery Method Room Air 06/01/25 07:18 Course Orders Ordered: ED Orders 06/01/25 07:16 CBC Auto Diff [Complete Blood Count AUTO DIFF] Stat CMP [Comprehensive Metabolic Panel] Stat 06/01/25 08:37 Urinalysis and Microscopic Stat Urine Culture Stat Discontinued Medications Acetaminophen (Acetaminophen 325 Mg Tablet) 975 mg PO NOW ONE Stop: 06/01/25 10:17 Last Admin: 06/01/25 10:32 Dose: 975 mg Documented By: LORENA Cefdinir (Cefdinir 300 Mg Capsule) 300 mg PO NOW ONE Stop: 06/01/25 10:17 Last Admin: 06/01/25 10:31 Dose: 300 mg Documented By: LORENA Sodium Chloride (Normal Saline 0.9%) 1,000 mls @ 1,000 mls/hr IV BOLUS ONE Stop: 06/01/25 08:46 Last Infusion: 06/01/25 10:38 Dose: Infused Documented By: Admin: 06/01/25 07:50 Dose: 1,000 mls/hr Documented By: DOMO Phenazopyridine HCl (Phenazopyridine 100 Mg Tablet) 100 mg PO NOW ONE Stop: 06/01/25 10:17 Last Admin: 06/01/25 10:31 Dose: 100 mg Documented By: LORENA Vital Signs Vital signs: Vital Signs - 8 hr 06/01/25 07:18 06/01/25 07:21 06/01/25 07:30 Temperature 97.8 F Pulse Rate 108 H 105 H 103 H Respiratory Rate 16 Blood Pressure 123/68 Pulse Oximetry 96 97 96 Oxygen Delivery Method Room Air 06/01/25 07:31 06/01/25 07:31 06/01/25 08:00 Temperature Pulse Rate 103 H 88 Respiratory Rate Blood Pressure 120/56 L Pulse Oximetry 94 95 Oxygen Delivery Method 06/01/25 08:01 06/01/25 08:01 06/01/25 08:33 Temperature Pulse Rate 88 78 Respiratory Rate Blood Pressure 111/56 L Pulse Oximetry 95 Oxygen Delivery Method 06/01/25 09:00 06/01/25 09:01 06/01/25 09:01 Temperature Pulse Rate 85 88 Respiratory Rate Blood Pressure 113/58 L Pulse Oximetry 94 92 Oxygen Delivery Method 06/01/25 09:30 06/01/25 09:30 06/01/25 10:00 Temperature Pulse Rate 78 78 Respiratory Rate Blood Pressure 121/68 Pulse Oximetry 95 95 Oxygen Delivery Method 06/01/25 10:01 06/01/25 10:01 06/01/25 10:30 Temperature Pulse Rate 75 78 Respiratory Rate Blood Pressure 127/70 127/75 Pulse Oximetry 97 95 Oxygen Delivery Method Room Air MDM - Female Genitourinary Lab Data 06/01/25 07:16 06/01/25 07:16 Labs: Lab Results 06/01/25 06/01/25 Range/Units 07:16 08:37 WBC 8.8 (4.5-11.0) X10^3/uL RBC 4.40 (4.0-5.2) X10^6/uL Hgb 12.8 (12.0-16.0) g/dL Hct 37.1 (36-46) % MCV 84.4 (80-100) fL MCH 29.0 (26-34) PG MCHC 34.4 (30-36) % RDW 13.9 (11.6-14.8) % Plt Count 320 (150-400) X10^3/uL Neut % (Auto) 60.0 (50-75) % Lymph % (Auto) 29.5 (25-40) % [place] % (Auto) 3.9 (3-14) % Eos % (Auto) 5.9 H (2-4) % Baso % (Auto) 0.7 (0-2) % Neut # (Auto) 5300 (2265-3740) /uL Lymph # (Auto) 2600 (4368-8834) /uL [place] # (Auto) 300 (0-900) /uL Eos # (Auto) 500 H (0-450) /uL Baso # (Auto) 100 (0-100) /uL Sodium 140 (137-145) mmol/L Potassium 4.2 (3.4-5.1) mmol/L Chloride 98 (98-107) mmol/L Carbon Dioxide 29 (22-32) mmol/L BUN 18 H (7-17) mg/dL Creatinine 0.85 (0.52-1.04) mg/dL Estimated GFR > 60 (>60) mL/min BUN/Creatinine Ratio 21.2 (6-22) Glucose 137 H (70-99) mg/dL Calcium 9.7 (8.4-10.2) mg/dL Total Bilirubin 0.5 (0.2-1.3) mg/dL AST 20 (14-36) IU/L ALT 18 (<35) IU/L Alkaline Phosphatase 73 (38-126) U/L Total Protein 8.7 H (6.3-8.2) g/dL Albumin 4.8 (3.5-5.0) g/dL Globulin 3.9 (1.7-4.1) g/dL Albumin/Globulin Ratio 1.2 (1.0-2.8) Urine Color Yellow Urine Appearance Clear Urine pH 7.0 (4.5-8.0) Ur Specific [place] 1.010 (1.000-1.035) Urine Protein Negative (Negative) Urine Glucose (UA) Negative (Negative) g/dL Urine Ketones Negative (NEGATIVE) Urine Occult Blood Negative (Negative) Urine Nitrate Negative (Negative) Urine Bilirubin Negative (NEGATIVE) Urine Urobilinogen 1.0 (0.2) E.U./dL Ur Leukocyte Esterase Trace H (NEGATIVE) Urine RBC None seen (0-5/HPF) Urine WBC 5-10/hpf H (0-5/HPF) Ur Squamous Epith Cells 5-10 /hpf H (0-5/HPF) Ur Transition Epith Cell 1-5/hpf (0-5/HPF) Amorphous Sediment 1+ Urine Bacteria Moderate (10-30) H (None) Ur Culture Indicated? Specimen cultured Vol Urine Centrifuged 10ml (spun) MDM Narrative Medical decision making narrative: Patient here for bladder pain. Started yesterday. Patient seen here May 08 and had urinary retention. Has Sanchez catheter in place the same 1 that was placed originally. Patient . Urology appointment due to transportation needs. No fever chills. Patient was treated for UTI when she was seen here May 08. No other complaints at this time. MDM After history and exam, CBC CMP urinalysis, we will try to remove the Sanchez catheter the see patient can void Differential considered: Includes but not limited to UTI urinary retention Medical records reviewed: May 08, 2025 ER visit here Lab Test results independently reviewed as above. Pertinent findings: WBC 8.8 sodium 140 potassium 4.2 BUN 18 creatinine 0.85 GFR greater than 60 urinalysis WBC 5-10 positive bacteria Re-evaluations: 10:19 a.m.. Patient was able to urinate after removal of Sanchez catheter. We will be treating for cystitis versus UTI. She agrees with plan. Return precautions reviewed. She desires discharge home. Discussion: Appropriate for discharge home. Exam is reassuring laboratory studies reassuring. Antibiotics have been started. Return precautions reviewed. She desires discharge home. Diagnosis: Sanchez catheter removal/cystitis Discharge Plan Departure Patient Disposition: Home Clinical Impression: Encounter for Sanchez catheter removal, Cystitis Instructions: DI for Urinary Tract Infection (UTI), DI for Acute Cystitis Activity Restrictions/Additional Instructions: Your Sanchez catheter has been removed. Return immediately if any questions or concerns or any trouble with urination. Antibiotics have been started to treat for urine infection. Please do reschedule your appointment with Urology. Keep well hydrated. Return if worse if any questions or concerns. Prescriptions: New cefdinir 300 mg capsule 300 mg PO BID Qty: 10 0RF phenazopyridine [Pyridium] 200 mg tablet 200 mg PO TID PRN (Reason: pain) Qty: 6 0RF No Action nystatin 100,000 unit/gram ointment 1 applic topical BID Qty: 30 3RF triamcinolone acetonide 0.025 % lotion 1 applic topical BID Qty: 60 2RF scopolamine base 1 mg over 3 days patch 3 day 1 patch transdermal Q3D PRN (Reason: excess salivation) Qty: 10 3RF lisinopril 40 mg tablet 40 mg PO DAILY Qty: 90 3RF nystatin 100,000 unit/mL suspension 400,000 unit PO QID Qty: 60 2RF Rx Instructions: swish and swallow cholecalciferol (vitamin D3) 100 mcg (4,000 unit) capsule 2,000 unit PO BID Qty: 180 1RF prazosin 2 mg capsule 4 mg PO ONCE PM Qty: 200 3RF vortioxetine 20 mg tablet 20 mg PO DAILY Qty: 90 3RF albuterol sulfate [ProAir HFA] 90 mcg/actuation HFA aerosol inhaler 2 puff INHALATION Q4-6H PRN (Reason: Shortness Of Breath) Qty: 8.5 1RF (DME) mechanical lift chair See Rx Instructions .Route .MEDSUPPLY Qty: 1 0RF Rx Instructions: As directed, pt 359 pounds. (DME) electronic blood pressure cuff See Rx Instructions .Route .MEDSUPPLY Qty: 1 0RF Rx Instructions: As directed, to be used daily to monitor blood pressure (DME) elevated toilet seat See Rx Instructions .Route .MEDSUPPLY Qty: 1 0RF Rx Instructions: As directed lidocaine 5 % ointment 1 applic topical BID PRN (Reason: for pain) Qty: 49.222 1RF melatonin 10 mg tablet 10 mg PO BEDTIME PRN (Reason: sleep) Qty: 30 0RF magnesium oxide 500 mg magnesium tablet 1,000 mg PO DAILY Qty: 60 0RF amoxicillin-pot clavulanate 875-125 mg tablet 1 tab PO BID Qty: 14 0RF nystatin [Nystop] 100,000 unit/gram powder 1 applic topical BID Qty: 60 0RF lamotrigine [Lamictal] 200 mg tablet 200 mg PO DAILY Qty: 90 3RF Patient Comments: Patient states she needs to take the brand name, blue triangle pill. Off brand can cause suicidal ideation. Incruse Ellipta 62.5 mcg/actuation blister with device 1 inh PO DAILY Qty: 90 3RF hydroxyzine HCl 50 mg tablet 50 mg PO QID PRN (Reason: anxiety) Qty: 360 1RF Breo Ellipta 200-25 mcg/dose blister with device 1 inh PO ONCE PM Qty: 120 5RF glycopyrrolate 2 mg tablet 2 mg PO BID PRN (Reason: secretions) Qty: 60 0RF omeprazole 40 mg capsule,delayed release(DR/EC) 40 mg PO BID Qty: 180 3RF lactulose 20 gram packet 40 g PO .prn Qty: 30 0RF diazepam 5 mg tablet 5 mg PO TID Qty: 90 1RF montelukast 10 mg tablet 10 mg PO QPM Qty: 90 3RF pregabalin [Lyrica] 150 mg capsule 150 mg PO BID Qty: 60 2RF ondansetron 8 mg tablet,disintegrating 8 mg PO Q8H PRN (Reason: for nausea/vomiting) Qty: 90 0RF Dupixent Pen 300 mg/2 mL pen injector See Rx Instructions .ROUTE .COMPLEX Qty: 4 3RF Dose Instruction: INJECT THE CONTENTS OF 1 PEN(300MG) UNDER THE SKIN EVERY OTHER WEEK Rx Instructions: INJECT THE CONTENTS OF 1 PEN(300MG) UNDER THE SKIN EVERY OTHER WEEK baclofen 20 mg tablet 40 mg PO QPM Qty: 180 3RF latanoprost 0.005 % Drops 1 drp EYE-BOTH BEDTIME levalbuterol HCl 1.25 mg/3 mL Solution For Nebulization 1.25 mg INHALATION Q4H PRN (Reason: Wheezing) sulfamethoxazole-trimethoprim 800-160 mg tablet 1 tab PO BID Qty: 14 0RF Excedrin Extra Strength 250-250-65 mg tablet 1 tab PO Q4-6H PRN (Reason: Migraine Headache) Corlanor 5 mg tablet 5 mg PO BID Rx Instructions: must administer with a meal/food Referrals: Dax Griffiths DO [Physician, Urology] Rolanda Raymond MD [Primary Care Provider, Family Practice] Stand Alone Forms: Patient Portal/API
[2025-06-01 07:40] LABS: Add Manual Diff / Slide Review NO; Alanine Aminotransferase 18 IU/L (<35); Albumin 4.8 g/dL (3.5-5.0); Albumin Globulin Ratio 1.2 (1.0-2.8); Alkaline Phosphatase 73 U/L (38-126); Blood Urea Nitrogen 18 mg/dL (7-17); Calcium 9.7 mg/dL (8.4-10.2); Carbon Dioxide 29 mmol/L (22-32); Chloride 98 mmol/L (98-107); Estimated Glomerular Filt Rate > 60 mL/min (>60); Globulin 3.9 g/dL (1.7-4.1); Glucose 137 mg/dL (70-99); HEMOLYSIS < 15 (0-50); Hematocrit 37.1 % (36-46); Hemoglobin 12.8 g/dL (12.0-16.0); Lymphocytes Absolute Auto 2600 /uL (1100-4500); Mean Corpuscular HGB Conc 34.4 % (30-36); Mean Corpuscular Hemoglobin 29.0 PG (26-34); Mean Corpuscular Volume 84.4 fL (80-100); Platelet Count 320 X10^3/uL (150-400); Potassium 4.2 mmol/L (3.4-5.1); Sodium 140 mmol/L (137-145); Total Protein 8.7 g/dL (6.3-8.2)
[2025-06-01] MEDS: SODIUM CHLORIDE 0.9% 1,000 ML 1000 ML IV (07:50)
--- NOTE | 2025-06-01 08:05 | PC.NURSE ---
0735 Indwelling perez catheter removed per request from Dr. Márquez. Urine in perez bag appeared yellow and cloudy. Patient reports pain to lower abdomen as well as burning to urethral area which started a few days ago. Catheter had been in for about a month for urinary retention as a result of a UTI. See triage note for more info.
[2025-06-01 08:52] LABS: Appearance Urine UA CLEAR; Bilirubin Urine UA NEGATIVE (NEGATIVE); Color Urine UA YELLOW; Glucose Urine UA NEGATIVE (Negative); Ketones Urine UA NEGATIVE (NEGATIVE); Leukocyte Esterase Urine UA TRACE (NEGATIVE); Nitrite Urine UA NEGATIVE (Negative); Occult Blood Urine UA NEGATIVE (Negative); Protein Urine UA NEGATIVE (Negative); Specific Gravity Urine UA 1.010 (1.000-1.035); Urobilinogen Urine UA 1.0 E.U./dL (0.2)
[2025-06-01 08:54] LABS: pH Urine UA 7.0 (4.5-8.0)
[2025-06-01 09:02] LABS: Culture Indicated Urine Specimen Cultured
[2025-06-01] MEDS: CEFDINIR 300 MG CAPSULE PO (10:31)
[2025-06-01] MEDS: PHENAZOPYRIDINE 100 MG TABLET PO (10:31)
[2025-06-01] MEDS: ACETAMINOPHEN 325 MG TABLET 975 MG PO (10:32)
== END 2025-06-01 10:45 | disposition home or self-care (01) ==
PROVIDERS: Emergency Provider Emergency Medicine; PCP Family Medicine
DX: N30.90 Cystitis, unspecified without hematuria (principal); Z46.6 Encounter for fitting and adjustment of urinary device
CPT/HCPCS: 51798; 80053; 81001; 85025; 87086; 96360; 96361; 99284

== ENCOUNTER 2025-06-25 01:09 | Emergency (ER) | payer MEDICARE, MEDICAID, SELFPAY ==
[2024-09-19 17:24] VITALS: BMI 43.6
[2024-09-20 07:43] VITALS: PULSE 79; RESP 16; O2SAT 100
[2025-06-25] VITALS (15 sets, daily range): BP systolic 93–125; BP diastolic 37–56; PULSE 78–115; RESP 16–19; TEMP 35.9; O2SAT 82–100; BMI 44.4
--- NOTE | 2025-06-25 01:14 | ED.GENADULT ---
HPI - General Adult General Chief complaint: Headache Stated complaint: Anxiety History of Present Illness HPI narrative: 45-year-old female asthma, fibromyalgia, hypertension, pots, obesity, limited mobility secondary to chronic pain, PTSD, depression, anxiety, agoraphobia, chronic vertigo presents with migraine for the past 2 days unrelieved with Excedrin starts at the top of the head which leads her to have more anxiety and panic attacks resulting in more intense migraines. Of note she also mentions of diarrhea since Friday 10 times also on Friday but that has since resolved. She denies lightheadedness, loss of consciousness, fever, chills, stiff neck, rash, chest pain, shortness of breath, abdominal pain, back pain, urinary complaints. Other than what is stated 14 point review of system is negative. Related Data Home Medications ?Medication ?Instructions ?Recorded ?Confirmed eavolzl-bsxobohkmbykq-ckckitew 250 1 tab PO Q4-6H PRN Migraine 09/18/22 06/08/25 mg-250 mg-65 mg tablet (Excedrin Headache Extra Strength) ivabradine 5 mg tablet (Corlanor) 5 mg PO BID 07/04/23 06/08/25 latanoprost 0.005 % eye drops 1 drp EYE-BOTH BEDTIME 09/20/24 06/08/25 levalbuterol HCl 1.25 mg/3 mL 1.25 mg inhalation Q4H PRN Wheezing 09/20/24 06/08/25 solution for nebulization atogepant [Qulipta] PO 06/08/25 06/08/25 Previous Rx's ?Medication ?Instructions ?Recorded cholecalciferol (vitamin D3) 100 2,000 unit PO BID #180 caps 11/26/21 mcg (4,000 unit) capsule albuterol sulfate 90 mcg/actuation 2 puff inhalation Q4-6H PRN 03/19/22 aerosol inhaler (ProAir HFA) Shortness Of Breath #8.5 grams electronic blood pressure cuff #1 ea 12/09/22 mechanical lift chair #1 ea 12/09/22 elevated toilet seat #1 ea 02/10/23 lidocaine 5 % topical ointment 1 applic topical BID PRN for pain 12/04/23 #49.222 grams scopolamine base 1 mg over 3 days 1 patch transdermal Q3D PRN excess 08/02/24 transdermal patch salivation #10 ea prazosin 2 mg capsule 4 mg (2 x 2 mg) PO ONCE PM #200 09/16/24 caps magnesium oxide 1,000 mg (2 x 500 mg magnesium) PO 09/30/24 DAILY #60 tabs melatonin 10 mg tablet 10 mg PO BEDTIME PRN sleep #30 tabs 09/30/24 lisinopril 40 mg tablet 40 mg PO DAILY #90 tabs 10/04/24 nystatin 100,000 unit/mL oral 400,000 unit (4 mL) PO QID #60 mL 10/04/24 suspension nystatin 100,000 unit/gram topical 1 applic topical BID #60 grams 10/11/24 powder (Nystop) Lamictal 200 mg tablet 200 mg PO DAILY #90 tabs 10/29/24 (lamotrigine) vortioxetine 20 mg tablet 20 mg PO DAILY #90 tabs 11/29/24 nystatin 100,000 unit/gram topical 1 applic topical BID #30 grams 01/03/25 ointment triamcinolone acetonide 0.025 % 1 applic topical BID #60 mL 01/03/25 lotion hydroxyzine HCl 50 mg tablet 50 mg PO QID PRN anxiety #360 tabs 01/17/25 umeclidinium 62.5 mcg/actuation 1 inh PO DAILY #90 ea 01/17/25 blister powder for inhalation (Incruse Ellipta) fluticasone furoate 200 1 inh PO ONCE PM #120 ea 01/24/25 mcg-vilanterol 25 mcg/dose inhalation powder (Breo Ellipta) glycopyrrolate 2 mg tablet 2 mg PO BID PRN secretions #60 tabs 02/02/25 omeprazole 40 mg capsule,delayed 40 mg PO BID #180 caps 03/23/25 release lactulose 20 gram oral packet 40 g PO .prn To help with bowel 04/04/25 movements #30 ea diazepam 5 mg tablet 5 mg PO TID #90 tabs 04/12/25 montelukast 10 mg tablet 10 mg PO QPM #90 tabs 04/20/25 pregabalin 150 mg capsule (Lyrica) 150 mg PO BID #60 caps 04/25/25 ondansetron 8 mg disintegrating 8 mg PO Q8H PRN for 05/16/25 tablet nausea/vomiting #90 tabs dupilumab 300 mg/2 mL subcutaneous See Rx Instructions .Route 05/24/25 pen injector (Percolate) .COMPLEX #4 mL baclofen 20 mg tablet 40 mg (2 x 20 mg) PO QPM #180 tabs 05/30/25 phenazopyridine 200 mg tablet 200 mg PO TID PRN pain 6 doses #6 06/01/25 (Pyridium) tabs gafhcxmyej-lkuxvuqxybxhr-roqblrtu 1 cap PO Q4-6H PRN pain #20 caps 06/25/25 50 mg-300 mg-40 mg capsule (Fioricet) Allergies Allergy/AdvReac Type Severity Reaction Status Date / Time bupropion (BUPROPION) Allergy Mild facial rash Verified 06/08/25 14:37 hydrocodone (HYDROCODONE) Allergy Mild rash Verified 06/08/25 14:37 iodine (IODINE) Allergy Mild edema Verified 06/08/25 14:37 lithium AdvReac Severe suicidal Verified 06/08/25 14:37 thoughts lorazepam AdvReac Severe worsens Verified 06/08/25 14:37 panic trazodone AdvReac Severe suicidal Verified 06/08/25 14:37 thoughts diphenhydramine (From AdvReac Intermediate panic Verified 06/08/25 14:37 Benadryl) attacks Review of Systems Review of Systems ROS Unobtainable: All systems reviewed & are unremarkable except as noted in HPI and below Patient History Medical History Lumbar radiculopathy Cervical radiculopathy Low back pain Thoracic back pain Shoulder pain Neck pain Chronic migraine [place] use Suicide attempt by acetaminophen overdose Aspirin overdose Essential (primary) hypertension Tachycardia Rheumatoid arthritis Chronic cough Asthma Hayfever Agoraphobia Panic attacks PTSD (post-traumatic stress disorder) Depression Anxiety Migraines Chronic headaches Bursitis of left hip Scoliosis Chronic back pain Corneal pigmentation of both eyes MRSA infection Anemia Vertigo Tinnitus Recurrent sinusitis History of recurrent ear infection Hearing loss Partial blindness Interstitial cystitis Painful menstrual periods Ovarian cyst Irregular periods/menstrual cycles History of heavy periods Endometriosis Abnormal Pap smear of cervix Kidney infection (2002) Frequent UTI BRCA negative PUD (peptic ulcer disease) IBS (irritable bowel syndrome) Hemorrhoids GI bleeding GERD (gastroesophageal reflux disease) Gastroparesis Gastric ulcer Anal fissure (01/24/12) History of tilt table evaluation (05/02/15) Vaginal delivery Asthma with allergic rhinitis Fibromyalgia Nondiabetic gastroparesis (01/04/16) Irritable bowel syndrome with diarrhea (01/04/16) Chronic interstitial cystitis (01/04/16) History of partial hysterectomy (01/04/16) History of fracture of hip (01/04/16) History of gastrointestinal hemorrhage (01/04/16) Surgical History History of colonoscopy (01/10/15) History of endoscopy (01/10/15) History of endoscopy (05/04/07) History of rectal surgery (01/24/12) Anesthesia complication History of hip surgery (12/13/92) Status post laparoscopy (05/04/07) History of bladder surgery (02/2001) Status post laparoscopy (1999) History of third molar tooth extraction (1997) History of bladder suspension procedure (06/14/13) Status post dilation and curettage (10/2009) Status post laparoscopic cholecystectomy (03/11/06) Status post appendectomy (08/1996) Status post hysterectomy (05/07/10) Family History Brother Age: 49 Back pain Brother Age: 48 Migraines Child Age: 22 Mental health problem Child Age: 21 Asperger syndrome Father Age: 72 Anger Mother Age: 66 Hypothyroidism Anxiety Stroke Sister Age: 49 Thyroid cancer Brain tumor Grandfather No problems noted. Grandmother Brain tumor Grandfather No problems noted. Grandmother Ovarian cancer Social History marital status: number of children: 2 household members: children lives independently: Yes caregiver/support person: Yes housing: house second hand exposure: No alcohol intake: current substance use type: does not use alcohol intake frequency: a few times a week Exam Narrative Exam Narrative: GENERAL: [45] year old patient appears stated age. Morbidly obese patient, in mild distress. HEAD: Atraumatic. Normocephalic. EYES: Pupils equal round and reactive. Extraocular motions intact. No scleral icterus. No injection or drainage. ENT: Nose without bleeding, purulent drainage. Throat without erythema, tonsillar hypertrophy or exudate. Airway patent. NECK: Trachea midline. Non tender CARDIOVASCULAR: Regular rate and rhythm without murmurs, gallops, or rubs. RESPIRATORY: Clear to auscultation. Breath sounds equal bilaterally. No wheezes, rales, or rhonchi. GASTROINTESTINAL: Abdomen soft, non-tender, nondistended. EXTREMITIES: No edema or joint tenderness. BACK: Nontender without deformity or crepitance. No flank tenderness. NEURO: AOx3. SKIN: No rash or erythema of visible areas Medical Decision Making MDM Narrative Medical decision making narrative: All lab work, vital signs, nurse triage note, medication list, previous ER visits, and all imaging studies reviewed. Patient given LR 1L bolus, Toradol, gi cocktail, and tylenol here. DC home on fiorcet. Differential diagnosis migraine, dehydration, anxiety, PTSD, viral, gerd. Discharge Plan Departure Patient Disposition: Home Clinical Impression: Migraine Qualifiers: Migraine type: migraine (< 15 days per month) without aura Status migrainosus presence: without status migrainosus Intractability: not intractable Qualified Code(s): G43.009 - Migraine without aura, not intractable, without status migrainosus Instructions: DI for Headache Activity Restrictions/Additional Instructions: Return with new or worsening symptoms. Pt tolerated Po challenge. Keep hydrated. Follow up with PCP in 1-2 weeks if no improvement in symptoms. Take medicine as directed. Prescriptions: New xakoaycwwo-makkevjauwqts-aohz [Fioricet] 50-300-40 mg capsule 1 cap PO Q4-6H PRN (Reason: pain) Qty: 20 0RF No Action nystatin 100,000 unit/gram ointment 1 applic topical BID Qty: 30 3RF triamcinolone acetonide 0.025 % lotion 1 applic topical BID Qty: 60 2RF scopolamine base 1 mg over 3 days patch 3 day 1 patch transdermal Q3D PRN (Reason: excess salivation) Qty: 10 3RF lisinopril 40 mg tablet 40 mg PO DAILY Qty: 90 3RF nystatin 100,000 unit/mL suspension 400,000 unit PO QID Qty: 60 2RF Rx Instructions: swish and swallow cholecalciferol (vitamin D3) 100 mcg (4,000 unit) capsule 2,000 unit PO BID Qty: 180 1RF prazosin 2 mg capsule 4 mg PO ONCE PM Qty: 200 3RF vortioxetine 20 mg tablet 20 mg PO DAILY Qty: 90 3RF albuterol sulfate [ProAir HFA] 90 mcg/actuation HFA aerosol inhaler 2 puff INHALATION Q4-6H PRN (Reason: Shortness Of Breath) Qty: 8.5 1RF (DME) mechanical lift chair See Rx Instructions .Route .MEDSUPPLY Qty: 1 0RF Rx Instructions: As directed, pt 359 pounds. (DME) electronic blood pressure cuff See Rx Instructions .Route .MEDSUPPLY Qty: 1 0RF Rx Instructions: As directed, to be used daily to monitor blood pressure (DME) elevated toilet seat See Rx Instructions .Route .MEDSUPPLY Qty: 1 0RF Rx Instructions: As directed lidocaine 5 % ointment 1 applic topical BID PRN (Reason: for pain) Qty: 49.222 1RF melatonin 10 mg tablet 10 mg PO BEDTIME PRN (Reason: sleep) Qty: 30 0RF magnesium oxide 500 mg magnesium tablet 1,000 mg PO DAILY Qty: 60 0RF nystatin [Nystop] 100,000 unit/gram powder 1 applic topical BID Qty: 60 0RF lamotrigine [Lamictal] 200 mg tablet 200 mg PO DAILY Qty: 90 3RF Patient Comments: Patient states she needs to take the brand name, blue triangle pill. Off brand can cause suicidal ideation. Incruse Ellipta 62.5 mcg/actuation blister with device 1 inh PO DAILY Qty: 90 3RF hydroxyzine HCl 50 mg tablet 50 mg PO QID PRN (Reason: anxiety) Qty: 360 1RF Breo Ellipta 200-25 mcg/dose blister with device 1 inh PO ONCE PM Qty: 120 5RF glycopyrrolate 2 mg tablet 2 mg PO BID PRN (Reason: secretions) Qty: 60 0RF omeprazole 40 mg capsule,delayed release(DR/EC) 40 mg PO BID Qty: 180 3RF lactulose 20 gram packet 40 g PO .prn Qty: 30 0RF diazepam 5 mg tablet 5 mg PO TID Qty: 90 1RF montelukast 10 mg tablet 10 mg PO QPM Qty: 90 3RF pregabalin [Lyrica] 150 mg capsule 150 mg PO BID Qty: 60 2RF ondansetron 8 mg tablet,disintegrating 8 mg PO Q8H PRN (Reason: for nausea/vomiting) Qty: 90 0RF Dupixent Pen 300 mg/2 mL pen injector See Rx Instructions .ROUTE .COMPLEX Qty: 4 3RF Dose Instruction: INJECT THE CONTENTS OF 1 PEN(300MG) UNDER THE SKIN EVERY OTHER WEEK Rx Instructions: INJECT THE CONTENTS OF 1 PEN(300MG) UNDER THE SKIN EVERY OTHER WEEK baclofen 20 mg tablet 40 mg PO QPM Qty: 180 3RF latanoprost 0.005 % Drops 1 drp EYE-BOTH BEDTIME levalbuterol HCl 1.25 mg/3 mL Solution For Nebulization 1.25 mg INHALATION Q4H PRN (Reason: Wheezing) phenazopyridine [Pyridium] 200 mg tablet 200 mg PO TID PRN (Reason: pain) Qty: 6 0RF Excedrin Extra Strength 250-250-65 mg tablet 1 tab PO Q4-6H PRN (Reason: Migraine Headache) Corlanor 5 mg tablet 5 mg PO BID Rx Instructions: must administer with a meal/food atogepant [Qulipta] PO Referrals: Rolanda Raymond MD [Primary Care Provider, Family Practice] Stand Alone Forms: Patient Portal/API
[2025-06-25] MEDS: LACTATED RINGERS 1,000 ML 1000 ML IV (01:49)
[2025-06-25] MEDS: KETOROLAC 30 MG/ML VIAL 15 MG IV (01:50)
--- NOTE | 2025-06-25 02:05 | PC.NURSE ---
pt has multiple c/o that started with a migraine 2 days, see triage note for details.
--- NOTE | 2025-06-25 02:12 | PC.NURSE ---
pt given a 1/2 sandwich, 2 yogurt cups and a minnie mandi per Dr Mo,
[2025-06-25] MEDS: MAG HYDROX/ALUMINUM/SIMETH SUS 30 ML, LIDOCAINE VISCOUS 2% 15 ML PO (03:01)
[2025-06-25] MEDS: ACETAMINOPHEN 325 MG TABLET 975 MG PO (03:05)
== END 2025-06-25 05:33 | disposition home or self-care (01) ==
PROVIDERS: Emergency Provider Family Medicine; PCP Family Medicine
DX: G43.009 Migraine without aura, not intractable, without status migrainosus (principal)
CPT/HCPCS: 36415; 96361; 96374; 99284; J1885; J7120